=== PATIENT | female | born 1990 | race Caucasian/White ===

== ENCOUNTER 2019-07-19 10:21 | Emergency (ER) | payer OTHER, SELFPAY ==
[2019-07-19 10:25] VITALS: BP 136/97; PULSE 82; RESP 18; TEMP 36.5; O2SAT 100; BMI 20.9
--- NOTE | 2019-07-19 10:41 | ED.FEVER ---
HPI - Fever General Chief Complaint: Fever Stated Complaint: fell in shower th night blacked out head issues Time Seen by Provider: 07/19/19 10:41 Source: patient and family Mode of arrival: Ambulatory Limitations: no limitations History of Present Illness HPI Narrative: This is a 29-year-old female who comes to the emergency department with complaint of feeling unwell. Patient states she felt warm but did not have any documented fevers. On she took a shower and when she was in the shower she blacked out. She states she had a mild headache and a little bit of bruising of her left cheek. She has continued to feel unwell and felt lightheaded but has not had any further syncope. She denies any numbness, tingling or other neurologic symptoms. She states she has continued to have a mild headache particularly where she had her head. Patient states she has been nauseated but not had any vomiting. She has had quite a bit of nasal congestion as well as crackling in her ears and ringing in her ears. Patient states that she has had a cough but it's nonproductive. She denies any chest pain today but states she had some mild pressure on before the episode in the shower. She has not had any shortness of breath. She has chronic abdominal pain secondary to endometriosis and states she has had continued pain a little bit on the right side and into her back. She has also noticed when she urinated it hurts on her right side but she has not had any frequency, dysuria or urgency. She denies any vaginal bleeding or discharge. She denies any rash or skin changes. She denies any neck or back pain. She is unaware of any sick contacts. 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 She denies any allergies but does not do well with oral contraceptives and only takes progesterone and is been told to avoid ibuprofen secondary to gastric ulcers. No tobacco, alcohol or illicit. 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 Related Data Home Medications Medication Instructions Recorded Confirmed clotrimazole BID #0 05/18/16 diphenhydramine HCl [Benadryl 1 tab PO BID #0 05/18/16 Allergy] hydrocortisone #0 05/18/16 Previous Rx's Medication Instructions Recorded cephalexin [Keflex] 500 mg PO Q12H #14 cap 05/18/16 prednisone 0 PO QDAY #7 tab 05/18/16 fluticasone propionate [Children's 1 spray NASAL DAILY PRN #18.2 ml 07/19/19 Flonase Allergy Rlf] Allergies Allergy/AdvReac Type Severity Reaction Status Date / Time No Known Drug Allergies Allergy Verified 07/19/19 11:41 Review of Systems Review of Systems ROS Unobtainable: All systems reviewed & are unremarkable except as noted in HPI and below Patient History Medical History (Updated 07/19/19 @ 12:35 by Crystal Del Rio DO) Endometriosis (Acute) Surgical History (Updated 07/19/19 @ 11:26 by Crystal Del Rio DO) H/O ureter repair (Acute) Social History Smoking Status: Never smoker Smoking Status: Never smoker alcohol intake frequency: other Substance Use Type: does not use Exam Narrative Exam Narrative: GEN: well nourished, well appearing female, alert and oriented x 3, patient appears to be in mild distress. HEENT: Atraumatic except for very faint ecchymosis that is greenish in color on the right cheek and infraorbital, pupils are equal round reactive to light, extraocular movements are intact, there show bilateral rhinorrhea, TMs are opaque with fluid but no signs of erythema. No bulge bilaterally. Throat is erythematous without any exudates, bilateral moderate tonsillar enlargement, no uvular deviation, mild bilateral anterior cervical lymphadenopathy. Negative Kernig's and Brudzinski's. HEART: Regular rate and rhythm without murmur, clicks, rubs. LUNGS:Lungs clear to auscultation, no wheezes, rales, crackles, chest moves symmetrically, no tachypnea or accessory muscle use. ABD:bowel sounds normal, soft, non-tender, no guarding, rebound, rigidity, no masses noted, no hepatosplenomegaly :No CVA tenderness MSCL: Non-tender, no muscle atrophy, muscles strength 5/5 upper and lower extremities, full range of motion, normal gait NEURO:CN 2-12 intact, sensation normal. Initial Vital Signs Initial Vital Signs: Vital Signs Temperature 97.7 F 07/19/19 10:25 Pulse Rate 82 07/19/19 10:25 Respiratory Rate 18 07/19/19 10:25 Blood Pressure 136/97 H 07/19/19 10:25 Pulse Oximetry 100 07/19/19 10:25 Scores GCS [place] coma scale eye opening: Spontaneous Nathan coma scale verbal response: Orientated Nathan coma scale motor response: Obey commands Nathan coma scale total score: 15 Course Orders Ordered: ED Orders 07/19/19 10:30 Influenza A & B (PCR) Stat 07/19/19 10:41 EKG-12 Lead Routine 07/19/19 11:21 XR chest 1V Stat 07/19/19 11:30 Complete Blood Count AUTO DIFF Stat Comprehensive Metabolic Panel Stat Troponin & CK Cardiac Panel Stat Discontinued Medications Acetaminophen (Tylenol) 650 mg PO NOW ONE Stop: 07/19/19 11:22 Last Admin: 07/19/19 11:33 Dose: 650 mg Documented by: ANGELITO Sodium Chloride (Normal Saline 0.9%) 1,000 mls @ 1,000 mls/hr IV BOLUS ONE Stop: 07/19/19 12:19 Last Infusion: 07/19/19 12:46 Dose: 0 mls/hr Documented by: Admin: 07/19/19 11:33 Dose: 1,000 mls/hr Documented by: ANGELITO Ondansetron HCl (Zofran) 4 mg IV NOW ONE Stop: 07/19/19 11:22 Last Admin: 07/19/19 11:33 Dose: 4 mg Documented by: ANGELITO Vital Signs Vital signs: Vital Signs - 8 hr 07/19/19 10:25 Temperature 97.7 F Pulse Rate 82 Respiratory Rate 18 Blood Pressure 136/97 H Pulse Oximetry 100 MDM - Fever Lab Data Attestation: I reviewed the patient's lab results. Result diagrams: 07/19/19 11:30 07/19/19 11:30 Labs: Lab Results 07/19/19 07/19/19 07/19/19 Range/Units 10:30 11:30 11:30 WBC 4.1 L (4.5-11.0) X10^3/uL RBC 4.72 (4.0-5.2) X10^6/uL Hgb 12.4 (12.0-16.0) g/dL Hct 36.8 (36-46) % MCV 77.9 L (80-100) fL MCH 26.4 (26-34) PG MCHC 33.8 (30-36) % RDW 13.9 (11.6-14.8) % Plt Count 223 (150-400) X10^3/uL Neut % (Auto) 55.2 (50-75) % Lymph % (Auto) 29.5 (25-40) % [place] % (Auto) 13.0 (3-14) % Eos % (Auto) 1.8 L (2-4) % Baso % (Auto) 0.5 (0-2) % Neut # (Auto) 2300 (7235-6120) /uL Lymph # (Auto) 1200 (0128-2658) /uL [place] # (Auto) 500 (0-900) /uL Eos # (Auto) 100 (0-450) /uL Baso # (Auto) 0 (0-100) /uL Sodium 138 (137-145) mmol/L Potassium 4.2 (3.4-5.1) mmol/L Chloride 104 (98-107) mmol/L Carbon Dioxide 27 (22-32) mmol/L BUN 13 (7-17) mg/dL Creatinine 0.70 (0.52-1.04) mg/dL Estimated GFR > 60.0 (>60) mL/min BUN/Creatinine Ratio 18.6 (6-22) Glucose 86 (70-100) mg/dL Calcium 9.3 (8.4-10.2) mg/dL Total Bilirubin 0.2 (0.2-1.3) mg/dL AST 26 (14-36) IU/L ALT 11 (<35) IU/L Alkaline Phosphatase 74 (38-126) U/L Total Creatine Kinase 37 (30-135) U/L CK-MB (CK-2) TNP CK-MB (CK-2) Rel Index TNP Troponin I < 0.012 (0.01-0.034) ng/mL Total Protein 7.6 (6.3-8.2) g/dL Albumin 3.9 (3.5-5.0) g/dL Globulin 3.7 (1.7-4.1) g/dL Albumin/Globulin Ratio 1.1 (1.0-2.8) Influenza A (RT-PCR) Flu a negative (NEGATIVE) Influenza B (RT-PCR) Flu b negative (NEGATIVE) Point of Care Testing Test Results Negative Rapid Strep A Negative Urine Dip Bedside Urine Glucose Negative Bedside Urine Bilirubin - Negative Bedside Urine Ketone - Negative Urine Specific [place] 1.015 Bedside Urine Occult Blood - Negative Bedside Urine pH 6.0 Bedside Urine Protein - Negative Bedside Urine Urobilinogen - Negative Bedside Urine Nitrite - Negative Bedside Urine Leukocytes - Negative Esterase Imaging Data Chest x-ray: Attestation: I personally reviewed and interpreted this imaging study as follows: My Impression: nap ECG Data Attestation: I personally reviewed and interpreted this ECG as follows: Interpretation: Sinus rhythm rate of 77 CA 142 QRS [address] No [address] elevation or depression. MDM Narrative Medical decision making narrative: Patient had episode of syncope on , none since but has felt congested with multiple upper respiratory symptoms. Patient does have low wbc with no other major lab abnormalities. CXR is negative. EKG is negative. Patient has had some sore throat but rapid strep is negative. influenza negative. She has small bruise on left cheek but no other symptoms. Discussed that symptoms can be related to URI symptoms although possible to have post-concussive symptoms as well. Patient is ambulating in the ED without much issue. Discharge Plan Departure Patient Disposition: Home Clinical Impression: URI (upper respiratory infection), Syncope Discharge Date/Time: 07/19/19 12:56 Activity Restrictions/Additional Instructions: Follow up with your primary care in the next 2-3 days for recheck. Continue with oral hydration. I would recommend continuing with a decongestant such as claritin daily. Also recommend that you use flonase 1 spray to each nostril once daily. Return to emergency department for persistent fevers, recurrent passing out, lightheadedness, new chest pain or pressure, persistent vomiting, black or bloody stools, new shortness of breath, swelling in your extremities or other new or concerning symptoms. Prescriptions: New fluticasone propionate [Children's Flonase Allergy Rlf] 50 mcg/actuation spray,suspension 1 spray NASAL DAILY PRN (Reason: nasal congestion) Qty: 18.2 RF: 0 No Action diphenhydramine HCl [Benadryl Allergy] 25 MG tablet 1 tab PO BID Qty: 0 RF: 0 clotrimazole 1 % cream BID Qty: 0 RF: 0 hydrocortisone 0.5 % ointment Qty: 0 RF: 0 prednisone 20 MG tablet 0 PO QDAY Qty: 7 RF: 0 cephalexin [Keflex] 500 MG capsule 500 mg PO Q12H Qty: 14 RF: 0
[2019-07-19 11:11] LABS: Influenza A - CEPHEID Flu A NEGATIVE (NEGATIVE); Influenza B - CEPHEID Flu B NEGATIVE (NEGATIVE)
--- NOTE | 2019-07-19 11:21 | DI.RAD.S_ITS ---
PROCEDURE: XR CHEST 1V INDICATIONS: syncope, chest pain 2 days ago, fevers TECHNIQUE: One view of the chest was acquired. COMPARISON: None. FINDINGS: Surgical changes and devices: None. Lungs and pleura: Lungs are clear. No pleural effusions or pneumothorax. Mediastinum: Mediastinal contours appear normal. Heart size is normal. Bones and chest wall: No suspicious bony lesions. Overlying soft tissues appear unremarkable. IMPRESSION: Portable chest within normal limits. Dictated by: hSashi Yang M.D. on 07/19/2019 at 11:38 Approved by: Shashi Yang M.D. on 07/19/2019 at 11:38
[2019-07-19] MEDS: ONDANSETRON 4 MG/2 ML INJ IV (11:33)
[2019-07-19] MEDS: SODIUM CHLORIDE 0.9% 1,000 ML 1000 ML IV (11:33)
[2019-07-19] MEDS: ACETAMINOPHEN 325 MG TABLET 650 MG PO (11:33)
[2019-07-19 11:39] LABS: Add Manual Diff / Slide Review NO; Basophils Absolute Auto 0 /uL (0-100); Basophils Percent Auto 0.5 % (0-2); Eosinophils Absolute Auto 100 /uL (0-450); Eosinophils Percent Auto 1.8 % (2-4); Hematocrit 36.8 % (36-46); Hemoglobin 12.4 g/dL (12.0-16.0); Lymphocytes Absolute Auto 1200 /uL (1100-4500); Lymphocytes Percent Auto 29.5 % (25-40); Mean Corpuscular HGB Conc 33.8 % (30-36); Mean Corpuscular Hemoglobin 26.4 PG (26-34); Mean Corpuscular Volume 77.9 fL (80-100); Monocytes Absolute Auto 500 /uL (0-900); Neutrophils Absolute Auto 2300 /uL (1500-7000); Neutrophils Percent Auto 55.2 % (50-75); Platelet Count 223 X10^3/uL (150-400); Red Blood Cell Count 4.72 X10^6/uL (4.0-5.2); Red Cell Distribution Width 13.9 % (11.6-14.8); White Blood Cell Count 4.1 X10^3/uL (4.5-11.0)
[2019-07-19 11:45] LABS: Alanine Aminotransferase 11 IU/L (<35); Albumin 3.9 g/dL (3.5-5.0); Albumin Globulin Ratio 1.1 (1.0-2.8); Alkaline Phosphatase 74 U/L (38-126); Aspartate Aminotransferase 26 IU/L (14-36); BUN Creatinine Ratio 18.6 (6-22); Bilirubin Total 0.2 mg/dL (0.2-1.3); Blood Urea Nitrogen 13 mg/dL (7-17); Calcium 9.3 mg/dL (8.4-10.2); Carbon Dioxide 27 mmol/L (22-32); Chloride 104 mmol/L (98-107); Creatine Kinase 37 U/L (30-135); Estimated Glomerular Filt Rate > 60.0 mL/min (>60); Globulin 3.7 g/dL (1.7-4.1); Glucose 86 mg/dL (70-100); HEMOLYSIS < 15 (0-50); Potassium 4.2 mmol/L (3.4-5.1); Sodium 138 mmol/L (137-145); Total Protein 7.6 g/dL (6.3-8.2)
[2019-07-19 11:56] LABS: Troponin I < 0.012 ng/mL (0.01-0.034)
== END 2019-07-19 12:56 | disposition home or self-care (01) ==
PROVIDERS: Emergency Provider Emergency Medicine
DX: J06.9 Acute upper respiratory infection, unspecified (principal); R55 Syncope and collapse; Z98.890 Other specified postprocedural states; N80.9 Endometriosis, unspecified
CPT/HCPCS: 36415; 71045; 80053; 81003; 81025; 82550; 84484; 85025; 87502; 87880; 93005; 93010; 96361; 96374; 99284; 99285; J2405

== ENCOUNTER 2019-07-26 20:19 | Emergency (ER) | payer OTHER, MEDICAID, SELFPAY ==
[2019-07-26 20:24] VITALS: BP 126/84; PULSE 75; RESP 20; TEMP 36.9; O2SAT 99
--- NOTE | 2019-07-26 20:46 | ED_ITS ---
HPI - Neuro Symptoms/Deficit General Chief Complaint: Neuro Symptoms/Deficit Stated Complaint: recent concussion, feels worse Time Seen by Provider: 07/26/19 20:28 Source: patient Mode of arrival: Ambulatory Limitations: no limitations History of Present Illness HPI Narrative: 29-year-old female who approximately 10 days ago had what was reported as a syncopal event while in the shower. Did not sound like this was seizure. Was seen in the emergency department afterwards and was determined that it was vasovagal. 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 She states that since she past out she has had headaches, balance issues, no vision problems. Nausea. Also complaining of neck pain. On Anticoagulants: No Related Data Home Medications Medication Instructions Recorded Confirmed clotrimazole BID #0 05/18/16 diphenhydramine HCl [Benadryl 1 tab PO BID #0 05/18/16 Allergy] hydrocortisone #0 05/18/16 Previous Rx's Medication Instructions Recorded cephalexin [Keflex] 500 mg PO Q12H #14 cap 05/18/16 prednisone 0 PO QDAY #7 tab 05/18/16 fluticasone propionate [Children's 1 spray NASAL DAILY PRN #18.2 ml 07/19/19 Flonase Allergy Rlf] Allergies Allergy/AdvReac Type Severity Reaction Status Date / Time No Known Drug Allergies Allergy Verified 07/19/19 11:41 Review of Systems Constitutional Constitutional: Denies fatigue, Reports headache(s) and Reports weakness Eyes Eyes: Denies change in vision ENT Ears, Nose, Mouth, and Throat: Reports dizziness, Reports headache(s) and Reports disequilibrium Cardiovascular Cardiovascular: Denies chest pain, Denies syncope, Denies palpitations and Denies dyspnea Respiratory Respiratory: Denies dyspnea Gastrointestinal Gastrointestinal: Denies abdominal pain, Denies change in stool character, Reports nausea and Denies vomiting Genitourinary Genitourinary: Denies dysuria and Denies vaginal discharge Musculoskeletal Musculoskeletal: Denies myalgias, Denies arthralgias, Reports muscle weakness and Denies tingling Integumentary/Breasts Skin/Breast: Denies rash Neurologic Neurologic: Reports behavioral changes, Reports confusion, Reports dizziness, Denies syncope, Reports headache(s), Reports lack of coordination, Denies focal weakness, Reports memory loss, Denies convulsions, Denies seizure-like activity, Denies sensory deficit, Denies tingling, Reports disequilibrium and Reports weakness Psychiatric Psychiatric: Reports behavioral changes, Reports confusion, Reports difficulty concentrating and Reports memory loss Endocrine Endocrine: Denies fatigue and Denies palpitations Patient History Medical History Endometriosis (Acute) Surgical History (Updated 07/19/19 @ 11:26 by Crystal Del Rio DO) H/O ureter repair (Acute) Social History Smoking Status: Never smoker Smoking Status: Never smoker alcohol intake frequency: other Substance Use Type: does not use Exam Initial Vital Signs Initial Vital Signs: Vital Signs Temperature 98.4 F 07/26/19 20:24 Pulse Rate 75 07/26/19 20:24 Respiratory Rate 20 07/26/19 20:24 Blood Pressure 126/84 07/26/19 20:24 Pulse Oximetry 99 07/26/19 20:24 Const General: cooperative, healthy appearing, comfortable, well developed, well anselmo omed and No acute distress Limitations: mental status not altered HENMT Head: normal to inspection and normocephalic Face and sinus: normal facial exam Eyes Pupils: PERRL EOM: EOM intact bilaterally Resp Effort & Inspection: normal respiratory effort Auscultation: clear to auscultation bilaterally Cardio Rate: regular rate Rhythm: regular rhythm Pulses: radial pulses present GI Inspection: non-distended Palpation: soft, No firm and No tender Back/Spine/Pelvis Cervical Spine: cervical spinal tenderness and No step off deformity Thoracic/Lumbar Spine: No thoracic spinal tenderness and No lumbar spinal tenderness Skin Lesions: no lesions Rashes: no rashes Neuro General: alert, awake and oriented x3 Cranial Nerves: CN's II-XI intact bilaterally Cognition: normal cognition Speech: speech normal Gait: shuffling and wide-based Motor: strength 5/5 throughout and no pronator drift Sensory Exam: no sensory deficits noted Coordination: [id number] test normal Extrem General: normal to inspection and capillary refill normal Psych Appearance: grossly normal and well kempt Scores GCS Nathan coma scale eye opening: Spontaneous [place] coma scale verbal response: Orientated Nathan coma scale motor response: Obey commands Nathan coma scale total score: 15 Course Orders Ordered: ED Orders 07/26/19 20:47 CT cervical spine wo con Stat CT head/brain wo con Stat 07/26/19 21:09 Basic Metabolic Panel Stat Complete Blood Count AUTO DIFF Stat Test Serum,Qual Stat Vital Signs Vital signs: Vital Signs - 8 hr 07/26/19 20:24 07/26/19 22:26 Temperature 98.4 F 99.6 F Pulse Rate 75 68 Respiratory Rate 20 14 Blood Pressure 126/84 112/67 Pulse Oximetry 99 97 MDM - Neuro Symptoms/Deficit Medical Records Attestation: I reviewed the patient's medical records. Lab Data Attestation: I reviewed the patient's lab results. Result diagrams: 07/26/19 21:09 07/26/19 21:09 Labs: Lab Results 07/26/19 07/26/19 07/26/19 Range/Units 21:09 21:09 21:09 WBC 6.7 (4.5-11.0) X10^3/uL RBC 4.77 (4.0-5.2) X10^6/uL Hgb 12.6 (12.0-16.0) g/dL Hct 37.2 (36-46) % MCV 78.0 L (80-100) fL MCH 26.4 (26-34) PG MCHC 33.9 (30-36) % RDW 13.8 (11.6-14.8) % Plt Count 285 (150-400) X10^3/uL Neut % (Auto) 48.8 L (50-75) % Lymph % (Auto) 43.9 H (25-40) % [place] % (Auto) 6.0 (3-14) % Eos % (Auto) 0.9 L (2-4) % Baso % (Auto) 0.4 (0-2) % Neut # (Auto) 3300 (9984-3674) /uL Lymph # (Auto) 2900 (6663-3307) /uL [place] # (Auto) 400 (0-900) /uL Eos # (Auto) 100 (0-450) /uL Baso # (Auto) 0 (0-100) /uL Sodium 138 (137-145) mmol/L Potassium 4.6 (3.4-5.1) mmol/L Chloride 101 (98-107) mmol/L Carbon Dioxide 27 (22-32) mmol/L BUN 14 (7-17) mg/dL Creatinine 1.20 H (0.52-1.04) mg/dL Estimated GFR 53.5 L (>60) mL/min BUN/Creatinine Ratio 11.7 (6-22) Glucose 101 H (70-100) mg/dL Calcium 9.6 (8.4-10.2) mg/dL Serum , Qual Negative (Negative) Imaging Data CT - cervical spine: Radiologist's Impression: [address] [address] [address] Scan Report Signed Patient: Tyrese MartínezR#: [id number] : 1990Acct:[id number] Age/Sex: 29 / FDate of Service: 07/26/19 Loc: ED Accession Number: [id number] Procedure: CT cervical spine wo con Ordering Provider: Liang Nath D.O. PROCEDURE: CT CERVICAL SPINE WO CON INDICATIONS: Fall several days ago with neck pain TECHNIQUE: Noncontrast 3 mm thick sections acquired from the skull base to the T4 level. Sagittal and coronal reformats were then constructed. For radiation dose reduction, the following was used: automated exposure control, adjustment of mA and/or kV according to patient size. COMPARISON: None. FINDINGS: Image quality: Excellent. Bones: No fractures or dislocations. Visualized superior ribs are intact. Soft tissues: Prevertebral soft tissues are normal in thickness. No paravertebral hematomas. No apical pneumothoraces. IMPRESSION: No acute cervical spine injury. Dictated by: Tasha Story M.D. on 07/26/2019 at 21:07 Approved by: Tasha Story M.D. on 07/26/2019 at 21:09 CT scan - head: Radiologist's Impression: [address] [address] [address] Scan Report Addendum Patient: Maribeth Martínez#: [id number] : 1990Acct:[id number] Age/Sex: 29 / FDate of Service: 07/26/19 Loc: ED Accession Number: [id number] Procedure: CT head/brain wo con Ordering Provider: Liang Nath D.O. ADDENDUM This report includes an Addendum and supersedes previous reports for this exam. PROCEDURE: CT HEAD/BRAIN WO CON INDICATIONS: Fall several days ago with upper extremity weakness TECHNIQUE: Noncontrast 4.5 mm thick angled axial sections acquired from the foramen magnum to the vertex, with coronal and sagittal reformats. For radiation dose reduction, the following was used: automated exposure control, adjustment of mA and/or kV according to patient size. COMPARISON: None. FINDINGS: Image quality: Excellent. CSF spaces: Basal cisterns are patent. No extra-axial fluid collections. Ventricles are normal in size and shape. Brain: No midline shift. No intracranial masses or hemorrhage. Kolb-white matter interface is normal. Skull and face: Calvarium and visualized facial bones are intact, without suspicious lesions. Sinuses: Visualized sinuses and mastoids are clear. IMPRESSION: No acute cardiopulmonary findings. Dictated by: Tasha Story M.D. on 07/26/2019 at 21:05 Approved by: Tasha Story M.D. on 07/26/2019 at 21:07 ADDENDUM: Please note, the impression should read: No acute INTRACRANIAL findings. Dictated by: Tasha Story M.D. on 07/26/2019 at 21:47 Approved by: Tasha Story M.D. on 07/26/2019 at 21:47 Addendum Dictated By:Tasha Story MD Addendum Signed By: Addendum Cosigned By: DD/ TD/TT: 07/26/19 PROCEDURE: CT HEAD/BRAIN WO CON INDICATIONS: Fall several days ago with upper extremity weakness TECHNIQUE: Noncontrast 4.5 mm thick angled axial sections acquired from the foramen magnum to the vertex, with coronal and sagittal reformats. For radiation dose reduction, the following was used: automated exposure control, adjustment of mA and/or kV according to patient size. COMPARISON: None. FINDINGS: Image quality: Excellent. CSF spaces: Basal cisterns are patent. No extra-axial fluid collections. Ventricles are normal in size and shape. Brain: No midline shift. No intracranial masses or hemorrhage. Kolb-white matter interface is normal. Skull and face: Calvarium and visualized facial bones are intact, without suspicious lesions. Sinuses: Visualized sinuses and mastoids are clear. IMPRESSION: No acute cardiopulmonary findings. Dictated by: Tasha Story M.D. on 07/26/2019 at 21:05 Approved by: Tasha Story M.D. on 07/26/2019 at 21:07 [facility] Narrative Medical decision making narrative: Head CT is negative. Cervical spine CT is negative. Labs unremarkable. Patient is not anemic. Patient does have equal strength bilateral upper and lower extremities. When patient stands she does seem to be unsteady. Wants to fall backwards but is able to catch herself. Otherwise has a nonfocal neurologic exam. She is 10 days out from her event. I have low suspicion that this was a stroke. Low suspicion this was a seizure. I did inform her that it is unlikely that she passed out because of the low iron. Her symptoms are consistent with a post concussive syndrome. We did discuss this in detail and at length. Who we can hold on further workup for now. We discussed return precautions and follow-up instructions. She expressed understanding agreement plan. Discharge Plan Departure Patient Disposition: Home Clinical Impression: Post concussion syndrome Discharge Date/Time: 07/26/19 22:27 Instructions: DI for Postconcussion Syndrome Activity Restrictions/Additional Instructions: Recommend that you talk with her primary provider about a referral to see a concussion specialist. I also recommend further workup of your syncopal episode with consideration of potential Holter monitor and tilt-table test. Return to the emergency department for any new or worsening symptoms. Prescriptions: No Action diphenhydramine HCl [Benadryl Allergy] 25 MG tablet 1 tab PO BID Qty: 0 RF: 0 clotrimazole 1 % cream BID Qty: 0 RF: 0 hydrocortisone 0.5 % ointment Qty: 0 RF: 0 prednisone 20 MG tablet 0 PO QDAY Qty: 7 RF: 0 cephalexin [Keflex] 500 MG capsule 500 mg PO Q12H Qty: 14 RF: 0 fluticasone propionate [Children's Flonase Allergy Rlf] 50 mcg/actuation spray,suspension 1 spray NASAL DAILY PRN (Reason: nasal congestion) Qty: 18.2 RF: 0
--- NOTE | 2019-07-26 21:09 | PC.NURSE ---
provider ok'd lab draw and no IV.
--- NOTE | 2019-07-26 21:09 | PC.NURSE ---
Patient removed own c collar, precautions were stated to patient and patient prefers to not have a collar on. Provider aware.
[2019-07-26 21:20] LABS: Add Manual Diff / Slide Review NO; Basophils Absolute Auto 0 /uL (0-100); Basophils Percent Auto 0.4 % (0-2); Eosinophils Absolute Auto 100 /uL (0-450); Eosinophils Percent Auto 0.9 % (2-4); Hematocrit 37.2 % (36-46); Hemoglobin 12.6 g/dL (12.0-16.0); Lymphocytes Absolute Auto 2900 /uL (1100-4500); Lymphocytes Percent Auto 43.9 % (25-40); Mean Corpuscular HGB Conc 33.9 % (30-36); Mean Corpuscular Hemoglobin 26.4 PG (26-34); Monocytes Absolute Auto 400 /uL (0-900); Neutrophils Absolute Auto 3300 /uL (1500-7000); Neutrophils Percent Auto 48.8 % (50-75); Platelet Count 285 X10^3/uL (150-400); Red Blood Cell Count 4.77 X10^6/uL (4.0-5.2); Red Cell Distribution Width 13.8 % (11.6-14.8); White Blood Cell Count 6.7 X10^3/uL (4.5-11.0)
[2019-07-26 21:29] LABS: BUN Creatinine Ratio 11.7 (6-22); Blood Urea Nitrogen 14 mg/dL (7-17); Calcium 9.6 mg/dL (8.4-10.2); Carbon Dioxide 27 mmol/L (22-32); Chloride 101 mmol/L (98-107); Estimated Glomerular Filt Rate 53.5 mL/min (>60); Glucose 101 mg/dL (70-100); HEMOLYSIS < 15 (0-50); Potassium 4.6 mmol/L (3.4-5.1); Sodium 138 mmol/L (137-145)
--- NOTE | 2019-07-26 21:31 | PC.NURSE ---
patient reports balance and memory problems after dx of concussion four days ago in this ED. Ambulated self into ed with family, slow and steady gate.
[2019-07-26 21:37] LABS: Pregnancy Test Serum,Qual Negative (Negative)
[2019-07-26 22:26] VITALS: BP 112/67; PULSE 68; RESP 14; TEMP 37.6; O2SAT 97
== END 2019-07-26 22:27 | disposition home or self-care (01) ==
PROVIDERS: Emergency Provider Emergency Medicine
DX: F07.81 Postconcussional syndrome (principal); M54.2 Cervicalgia; W19.XXXA Unspecified fall, initial encounter
CPT/HCPCS: 36415; 70450; 72125; 80048; 84703; 85025; 99282; 99284

== ENCOUNTER 2020-03-11 13:30 | Outpatient (RCR) | payer OTHER, MEDICAID, SELFPAY ==
--- NOTE | 2020-02-04 17:56 | OT.OP.EVAL ---
Visit Care Team Role Provider Type Christen Figueroa PA-C Primary Care Provider Non-Staff Specialty: Family Practice Address: [address] [place] [address], [address], [place], [address] Email: Doctor Amanda MD Other Providers Non-Staff Specialty: Medical Address: Phone: Fax: Email: Attending Provider Referring Provider Specialty: Address: Phone: Fax: Email: Occupational Therapy Initial Evaluation OT Outpatient Adult Evaluation Start: 02/04/20 17:26 Freq: Status: Active Protocol: Document 02/04/20 17:26 AMS (Rec: 02/04/20 17:56 AMS [id number]) General Information Visit Start Time 13:45 Visit Stop Time 15:15 Total Visit Minutes 30 Plan of Care Dates 02/04/20-04/28/20 Insurance Information [email or web address]; 12 visits authorized Treatment Setting Outpatient Care Note Type Initial Evaluation Goals Objective Measurements Results of Strength Testing: Avg 44.3 pounds of force w/ R construction framer; Avg 30.3 pounds of force w/ L construction framer. Avg 11.0 pounds of force w/ R Lateral Pinch; Avg 9.3 pounds of force w/ L Lateral Pinch. MMT R wrist flex 4+/5; L wrist flex 4/5 R wrist ext 3+/5; L wrist ext 3+/[address] 4/5; L wrist RD 3+/ 5 R wrist UD 3+/5; L wrist UD 3+ /5 Short Term Goals 1. MMT 4/5 bilateral wrist extension. 2. MMT 4/5 bilateral wrist UD . 3. MMT 5/5 bilateral wrist flexion. 4. MMT 5/[address] Economic Development Manager Goals 1. Diba will be modified independent with execution of distal UE strengthening home exercise program utilizing provided written and visual instructions from therapist. 2. Assessment/Plan Treatment Assessment Please note that therapist was only able to complete initial evaluation secondary to Angelina arriving late to scheduled appointment. Angelina is a 29 year-old right hand dominant female with complicated medical presentation. She has h/o BCP for 13 years in setting of endometriosis; she had a fall in the shower in July of 2019 in which she hit her head and loss consciousness. 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 Angelina had to stop pursuing a masters in speech d /t recent medical events. She c/o fatigue, weakness, muscle 'spasms' of hands, primary left upper extremity numbness w/ laying down (either side and not dependent of positioning of elbow), visual and auditory sensitivities, difficulties w/ word finding, short term memory deficits, as well as difficulties w/ multitasking (which she previously struggled with, however, she was able to manage). Angelina demonstrated no difficulties w/ finger opposition w/ EO or EC; no errors noted. She was also able to imitate hand gestures simultaneously bilaterally w/ no errors. Angelina was accurate w / meeting hands at midline in front of body and above head; no midline shift was observed. She reports ability to use computer for up to 1 hour and then encounters fatigue and onset of headache if concentration is needed for tasks being completed; she denies errors with typing. She has been educated on changing settings/equipment for managing glare/settings of computer. Angelina reports she is able to manipulate phone without difficulties; she reports fatigue/and encountering heaviness of cell phone as limiting factor. Angelina reports restricted daily routine d/t fatigue; on a good day she is able to bathe, clean her room, and get up and move around multiple times. On a not so good day, Angelina struggles with bathing, cleaning her room and moving despite use of shower stool. Angelina denies motor planning difficulties with ADLS. Her mother is assisting her with meal preparation, management of bills/payments. Angelina is driving personal vehicle and reportedly was cleared by MD to do so. Angelina was noted to have distal UE weakness. Angelina reports also having to focus on instructions for motor imitation tasks. Based on evaluation, it is recommended that therapist pursues outpatient speech therapy referral for Angelina. In addition, outpatient OT is recommended to address distal UE strength/endurance, divided attention UE motor planning tasks, in order to support Angelina's return to successful engagement in meaningful activities. Comment 12 weeks Treatment Frequency Once a Week Therapeutic Contents Active Range of Motion, Adaptive Equipment Education, Client Education,Cognitive Skills Development,Functional Activities,Home Exercise Program,Education, Neurodevelopment Treatment, Neuromuscular Re-Education, Self-Care,Stretching/ Flexibility Activities, Therapeutic Activities, Therapeutic Exercises Suggested Referrals Speech Therapy
--- NOTE | 2020-02-12 16:26 | OT.OP.TRT ---
Visit Care Team Role Provider Type Christen Figueroa PA-C Primary Care Provider Non-Staff Specialty: Family Practice Address: [address] [place] [address], [address], [place], [address] Email: Doctor Amanda MD Other Providers Non-Staff Specialty: Medical Address: Phone: Fax: Email: Attending Provider Referring Provider Specialty: Address: Phone: Fax: Email: Occupational Therapy Treatment Note OT Outpatient Treatment Note - Adult Start: 02/04/20 17:26 Freq: Status: Active Protocol: Document 02/12/20 16:10 AMS (Rec: 02/12/20 16:25 AMS [id number]) OT Outpatient Adult Treatment Note Session Time Visit Start Time 13:30 Visit Stop Time 14:15 Total Visit Minutes 45 Visit Information Plan of Care Dates 02/04/20-04/28/20 Setting Treatment Setting Outpatient Care Visit Type Note Type Treatment Note General Information General Information Angelina is a 29 year-old right hand dominant female with complicated medical presentation. She has h/o BCP for 13 years in setting of endometriosis; she had a fall in the shower in July of 2019 in which she hit her head and loss consciousness. 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 Angelina had to stop pursuing a masters in speech d /t recent medical events. She c/o fatigue, weakness, muscle 'spasms' of hands, primary left upper extremity numbness w/ laying down (either side and not dependent of positioning of elbow), visual and auditory sensitivities, difficulties w/ word finding, short term memory deficits, as well as difficulties w/ multitasking (which she previously struggled with, however, she was able to manage). - Subjective Identification Type Name Identification Reconciled With Medical Record Observations Initial b/p 107/79. Heart rate 81 bpm. b/p 105/76 post supine exercises. Eye fatigue reported post boom dewick. Difficulty reported w/ holding up head. - Objective Objective Measurements h/o motion sickness which has increased since injury. motion sickness encountered w/ biking. Fatigue of L LE with cycling reported and report of awareness of left grasp weakening as bike ride progressed. Boom Dewick Test 1 = 15.9 sec no errors. Test 2 = 19.6 sec no errors. Test 3 = 21.5 sec no errors. However, report of eye fatigue at conclusion of tests. Impaired eye-teaming noted w/ convergence. Headache 4/10 post supine UE exercises. Short Term Goals 1. MMT 4/5 bilateral wrist extension. 2. MMT 4/5 bilateral wrist UD . 3. MMT 5/5 bilateral wrist flexion. 4. MMT 5/[address] Etiquette Teacher Goals 1. Diba will be modified independent with execution of distal UE strengthening home exercise program utilizing provided written and visual instructions from therapist. - Treatment 1 Descriptor Boom Jaguar Visual Scanning. Exercises 2 Descriptor 3.3# spherical ball weighted pass. 1 x 10. 1 Descriptor UE exercises. Supine. Sh flexion towel. 2 x 10. Supine. Chest press. 2 x 10. Supine. Hor sh abd/add. 2 x 10 . Supine. Wrist curls at sh flex . 1 set of 10 sec w/ hold of 3 to 4 sec per rep. - Assessment Assessment of Improvement Presented with increased fatigue on this treatment date . Encouraged to create a daily log or diary of daily patterns/activities to provide insight to medical team/ therapist team. Will need to closely monitor symptoms given decreased ability to identify specific triggers based on self-report; will need to monitor eye fatigue/strain/ overall fatigue/blood pressure throughout treatment session. Recommend slowly introducing exercises/activities to support distal UE strengthening. Angelina was able to complete visual scanning activities without errors and very efficiently; however, did report eye fatigue post exercises with heaviness of ' head'. Impaired convergence. h /o eye drift. Reports ability to use computer however, for up to an hour without cognitive focus. Home Exercise Program Requested Angelina makes a daily log or (diary) of activities/ symptoms/sleep patterns/ headaches/exercises/etc. Recommended carrying over of towel based exercise with wrist turns 1 set of 10 reps while supine with positioning of UEs at sh height. Recommended focusing on action without visual fixation given symptoms provoked. Practiced in session and gave Diba written and visual instructions for carry-over. - Plan Therapy Recommendations Continue with Current Program, Advance per Rehabilitation Protocol Additional Therapy Recommendations Consult w/ other therapies.
--- NOTE | 2020-02-19 16:55 | OT.OP.TRT ---
Visit Care Team Role Provider Type Christen Figueroa PA-C Primary Care Provider Non-Staff Specialty: Family Practice Address: [address] [place] [address], [address], [place], [address] Email: Doctor Amanda MD Other Providers Non-Staff Specialty: Medical Address: Phone: Fax: Email: Attending Provider Referring Provider Specialty: Address: Phone: Fax: Email: Occupational Therapy Treatment Note OT Outpatient Treatment Note - Adult Start: 02/04/20 17:26 Freq: Status: Active Protocol: Document 02/19/20 16:36 AMS (Rec: 02/19/20 16:55 AMS [id number]) OT Outpatient Adult Treatment Note Session Time Visit Start Time 12:30 Visit Stop Time 13:15 Total Visit Minutes 45 Visit Information Plan of Care Dates 02/04/20-04/28/20 Setting Treatment Setting Outpatient Care Visit Type Note Type Treatment Note General Information General Information Angelina is a 29 year-old right hand dominant female with complicated medical presentation. She has h/o BCP for 13 years in setting of endometriosis; she had a fall in the shower in July of 2019 in which she hit her head and loss consciousness. 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 Angelina had to stop pursuing a masters in speech d /t recent medical events. She c/o fatigue, weakness, muscle 'spasms' of hands, primary left upper extremity numbness w/ laying down (either side and not dependent of positioning of elbow), visual and auditory sensitivities, difficulties w/ word finding, short term memory deficits, as well as difficulties w/ multitasking (which she previously struggled with, however, she was able to manage). Angelina was diagnosed with Ely, ely - Subjective Identification Type Name Identification Reconciled With Medical Record Observations Initial b/p 131/99. Focus on breath. b/p medication taken 30 min prior to appt. c/o neck tightness and headache of 4/ 10 on 0 to 10 scale. b/p was re-taken 104/85. seated TB strengthening. completed scapular retraction w/ elbow ext 108/82. Angelina requested rest. Rested supine in darkened room; b/p 118/92 when sitting up. 116/90. No additional exercises. - Objective Objective Measurements Please refer to below for progress towards meeting established OT goals. 02/12/20= Boom Dewick Test 1 = 15.9 sec no errors. Test 2 = 19.6 sec no errors. Test 3 = 21.5 sec no errors. However, report of eye fatigue at conclusion of tests. Impaired eye-teaming noted w/ convergence. Short Term Goals 1. MMT 4/5 bilateral wrist extension. 2. MMT 4/5 bilateral wrist UD . 3. MMT 5/5 bilateral wrist flexion. 4. MMT 5/[address] Senior Living Goals 1. Diba will be modified independent with execution of distal UE strengthening home exercise program utilizing provided written and visual instructions from therapist. - Exercises 4 Descriptor Standing sh ext/scapular retraction w/ wrist flexion. TB #1. 2 x 10. wrist extension. TB #1. 2 x 10 . 3 Descriptor TB distal wrist strengthening exercises. Modified TB wrist strengthening. Wrist RD. seated. TB #1. 2 x 10. Wrist UD. seated. TB #1. 2 x 10. 2 Descriptor 3.3# spherical ball weighted pass. 1 x 10. 1 Descriptor UE exercises. Supine. Sh flexion towel. 2 x 10. Supine. Chest press. 2 x 10. Supine. Hor sh abd/add. 2 x 10 . Supine. Wrist curls at sh flex . 1 set of 10 sec w/ hold of 3 to 4 sec per rep. - Assessment Assessment of Improvement Advanced distal UE home exercise program on this treatment date utilizing TB #1 . Closely monitored b/p with execution of exercises. See subjective section. c/o fatigue and headache 4 out of 10 on scale initially w/ b/p 131/99; tightness of neck. b/p medication was reportedly taken 30 minutes prior to treatment session. b/p was re- taken; did not initiate exercises until b/p 104/85 reading w/ monitoring of patient/nonverbal signs et cetera. Will need to monitor eye fatigue/strain/overall fatigue/blood pressure throughout treatment session. Recommend slowly introducing exercises/activities to support distal UE strengthening. Home Exercise Program Upgraded distal home exercise program. Provided Diba with TB #1. Modified exercises to support Diba's active participation; discussed execution of exercises seated/ supine as tolerated. Original placed in paper chart. All exercises were reviewed in treatment session; informed that therapist would be out of the clinic for the next couple of weeks. If needed, rec conferring w/ primary PT. - Plan Therapy Recommendations Continue with Current Program, Advance per Rehabilitation Protocol Additional Therapy Recommendations Consult w/ other therapies.
--- NOTE | 2020-03-11 15:30 | OT.OP.TRT ---
Visit Care Team Role Provider Type Referring Provider Specialty: Address: Phone: Fax: Email: Christen Figueroa PA-C Primary Care Provider Non-Staff Specialty: Family Practice Address: [address] [place] [address], [address], [place], [address] Email: Doctor Amanda MD Other Providers Non-Staff Specialty: Medical Address: Phone: Fax: Email: Radhames Bullock Attending Provider Non-Staff Specialty: Psychiatry Address: [address] [place] [address], [id number] Email: Occupational Therapy Treatment Note OT Outpatient Treatment Note - Adult Start: 02/04/20 17:26 Freq: Status: Active Protocol: Document 03/11/20 15:30 AMS (Rec: 03/23/20 09:27 AMS [id number]) OT Outpatient Adult Treatment Note Session Time Visit Start Time 13:30 Visit Stop Time 14:15 Total Visit Minutes 45 Visit Information Plan of Care Dates 02/04/20-04/28/20 Setting Treatment Setting Outpatient Care Visit Type Note Type Treatment Note General Information General Information Angelina is a 29 year-old right hand dominant female with complicated medical presentation. She has h/o BCP for 13 years in setting of endometriosis; she had a fall in the shower in July of 2019 in which she hit her head and loss consciousness. 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 Angelina had to stop pursuing a masters in speech d /t recent medical events. She c/o fatigue, weakness, muscle 'spasms' of hands, primary left upper extremity numbness w/ laying down (either side and not dependent of positioning of elbow), visual and auditory sensitivities, difficulties w/ word finding, short term memory deficits, as well as difficulties w/ multitasking (which she previously struggled with, however, she was able to manage). Angelina was diagnosed with Ely, ely - Subjective Identification Type Name Identification Reconciled With Medical Record Observations PT really helped. I had relief from the appointment all the way into the evening. Exercise and doing cognitive activities for 20 minutes or so tends to bring headaches on per Diba. My headaches will start at 3 to 4 and go up to 6 or 7 out of 10 per Diba. - Objective Objective Measurements Please refer to below for progress towards meeting established OT goals. 02/12/20= Boom Dewick Test 1 = 15.9 sec no errors. Test 2 = 19.6 sec no errors. Test 3 = 21.5 sec no errors. However, report of eye fatigue at conclusion of tests. Impaired eye-teaming noted w/ convergence. Short Term Goals GOALS PLACED ON HOLD OF 05/20 1. MMT 4/5 bilateral wrist extension. 2. MMT 4/5 bilateral wrist UD . 3. MMT 5/5 bilateral wrist flexion. 4. MMT 5/[address] Longterm Goals 1. Angelina will be modified independent with execution of distal UE strengthening home exercise program utilizing provided written and visual instructions from therapist. = mod I with current HEP - - Assessment Assessment of Improvement Angelina is currently mod I with her home exercise program. Today's treatment session focused on mod I with current HEP relative to distal UE strength, activity modification, and energy conservation w/ focus on Angelina' s ability to participate in meaningful activities. Angelina reported relief from PT relative to headaches; thus, this positive feedback was conveyed to her primary PT! Angelina denies questions relative to HEP and/or other areas. Given that Angelina currently is receiving outpatient speech/PT , exercise/cognitive exercises and activities can exacerbate headache symptoms, insurance limitations, and that she is not able to have further diagnostic testing until her symptoms are stable, it is recommended that Angelina be placed on hold from OT. Therapist to follow-up as appropriate/as needed. - Plan Additional Therapy Recommendations Place on hold from treatment.
--- NOTE | 2020-04-27 11:10 | OT.OP.DC ---
Visit Care Team Role Provider Type Referring Provider Address: Phone: Fax: Email: Christen Figueroa PA-C Primary Care Provider Non-Staff Address: [address], [address], [place], [address] Email: Doctor Amanda MD Other Providers Non-Staff Address: Phone: Fax: Email: Radhames Bullock Attending Provider Non-Staff Address: [address] [place] [address], [id number] Email: OT Outpatient OT Outpatient Adult Evaluation Start: 02/04/20 17:26 Freq: Status: Active Protocol: Document 02/04/20 17:26 AMS (Rec: 02/04/20 17:56 AMS [id number]) General Information Session Time Visit Start Time 13:45 Visit Stop Time 15:15 Total Visit Minutes 30 Visit Information Plan of Care Dates 02/04/20-04/28/20 Insurance Information [employer]; 12 visits authorized Setting Treatment Setting Outpatient Care Visit Type Note Type Initial Evaluation Goals Objective Measurements Objective Measurements Results of Strength Testing: Avg 44.3 pounds of force w/ R aircraft structure mechanic; Avg 30.3 pounds of force w/ L aircraft structure mechanic. Avg 11.0 pounds of force w/ R Lateral Pinch; Avg 9.3 pounds of force w/ L Lateral Pinch. MMT R wrist flex 4+/5; L wrist flex 4/5 R wrist ext 3+/5; L wrist ext 3+/[address] 4/5; L wrist RD 3+/ 5 R wrist UD 3+/5; L wrist UD 3+ /5 Short Term Goals Short Term Goals 1. MMT 4/5 bilateral wrist extension. 2. MMT 4/5 bilateral wrist UD . 3. MMT 5/5 bilateral wrist flexion. 4. MMT 5/[address] Cable Stretcher And Tester Goals Fpc Goals 1. Diba will be modified independent with execution of distal UE strengthening home exercise program utilizing provided written and visual instructions from therapist. 2. Assessment/Plan Assessment Treatment Assessment Please note that therapist was only able to complete initial evaluation secondary to Diba arriving late to scheduled appointment. Angelina is a 29 year-old right hand dominant female with complicated medical presentation. She has h/o BCP for 13 years in setting of endometriosis; she had a fall in the shower in July of 2019 in which she hit her head and loss consciousness. 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 Angelina had to stop pursuing a masters in speech d /t recent medical events. She c/o fatigue, weakness, muscle 'spasms' of hands, primary left upper extremity numbness w/ laying down (either side and not dependent of positioning of elbow), visual and auditory sensitivities, difficulties w/ word finding, short term memory deficits, as well as difficulties w/ multitasking (which she previously struggled with, however, she was able to manage). Angelina demonstrated no difficulties w/ finger opposition w/ EO or EC; no errors noted. She was also able to imitate hand gestures simultaneously bilaterally w/ no errors. Angelina was accurate w / meeting hands at midline in front of body and above head; no midline shift was observed. She reports ability to use computer for up to 1 hour and then encounters fatigue and onset of headache if concentration is needed for tasks being completed; she denies errors with typing. She has been educated on changing settings/equipment for managing glare/settings of computer. Angelina reports she is able to manipulate phone without difficulties; she reports fatigue/and encountering heaviness of cell phone as limiting factor. Angelina reports restricted daily routine d/t fatigue; on a good day she is able to bathe, clean her room, and get up and move around multiple times. On a not so good day, Angelina struggles with bathing, cleaning her room and moving despite use of shower stool. Angelina denies motor planning difficulties with ADLS. Her mother is assisting her with meal preparation, management of bills/payments. Angelina is driving personal vehicle and reportedly was cleared by MD to do so. Angelina was noted to have distal UE weakness. Angelina reports also having to focus on instructions for motor imitation tasks. Based on evaluation, it is recommended that therapist pursues outpatient speech therapy referral for Angelina. In addition, outpatient OT is recommended to address distal UE strength/endurance, divided attention UE motor planning tasks, in order to support Angelina's return to successful engagement in meaningful activities. Plan Comment 12 weeks Treatment Frequency Once a Week Therapeutic Contents Active Range of Motion, Adaptive Equipment Education, Client Education,Cognitive Skills Development,Functional Activities,Home Exercise Program,Education, Neurodevelopment Treatment, Neuromuscular Re-Education, Self-Care,Stretching/ Flexibility Activities, Therapeutic Activities, Therapeutic Exercises Suggested Referrals Speech Therapy Sensory Assessment Sensory Profile2 Functional Wrist/Hand Scan Hand Side OT Outpatient Treatment Note - Adult Start: 02/04/20 17:26 Freq: Status: Active Protocol: Document 04/27/20 11:06 AMS (Rec: 04/27/20 11:09 AMS [id number]) OT Outpatient Adult Treatment Note Visit Information Plan of Care Dates 02/04/20-04/28/20 Setting Treatment Setting Outpatient Care Visit Type Note Type Discharge Summary General Information General Information Angelina is a 30 year-old right hand dominant female with complicated medical presentation. She has h/o BCP for 13 years in setting of endometriosis; she had a fall in the shower in July of 2019 in which she hit her head and loss consciousness. 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 Angelina had to stop pursuing a masters in speech d /t recent medical events. She c/o fatigue, weakness, muscle 'spasms' of hands, primary left upper extremity numbness w/ laying down (either side and not dependent of positioning of elbow), visual and auditory sensitivities, difficulties w/ word finding, short term memory deficits, as well as difficulties w/ multitasking (which she previously struggled with, however, she was able to manage). Angelina was diagnosed with solis Jarrett - Subjective Identification Type Name Observations Per Donita Cruz, Angelina's primary PT, Angelina no longer needs OT. Thus, Saraha to be d/c from outpatient OT. - Objective Short Term Goals ALL GOALS D/C OF 04/27/20; patient no longer needs OT. Will use insurance benefits for continued outpatient PT services. 1. MMT 4/5 bilateral wrist extension. 2. MMT 4/5 bilateral wrist UD . 3. MMT 5/5 bilateral wrist flexion. 4. MMT 5/[address] Cable Stretcher And Tester Goals GOALS MET Angelina will be modified independent with execution of distal UE strengthening home exercise program utilizing provided written and visual instructions from therapist. = mod I with current HEP - - Assessment Assessment of Improvement ALL GOALS D/C OF 04/27/20; patient no longer needs OT. Will use insurance benefits for continued outpatient PT services. - Plan Therapy Recommendations Discharge from Occupational Therapy Additional Therapy Recommendations Re-eval as deemed appropriate by PCP; will use benefit for PT
== END 2020-05-13 14:40 ==
LOC: OT 13:30
PROVIDERS: PCP Physician Assistant; Visit Provider Psychiatry & Neurology Neurology
DX: I69.30 Unspecified sequelae of cerebral infarction (principal)
CPT/HCPCS: 97110; 97166; 97530

== ENCOUNTER 2020-06-21 12:15 | Outpatient (RCR) | payer OTHER, MEDICAID, SELFPAY ==
--- NOTE | 2020-02-02 15:47 | PT.OIE ---
Current Diagnoses Unspecified sequelae of cerebral infarction (02/02/20) Past Medical History (Last Reviewed 07/27/19 @ 00:08 by Liang Nath DO) Endometriosis (Acute) Past Surgical History (Last Updated 07/19/19 @ 11:26 by Crystal Del Rio DO) H/O ureter repair (Acute) Visit Care Team Role Provider Type Christen Figueroa PA-C Primary Care Provider Non-Staff Specialty: [facility] Address: [address] [place] [address], [address], [place], [address] Email: Attending Provider Referring Provider Specialty: Address: Phone: Fax: Email: Physical Therapy Initial Evaluation PT-OP-A Visit Information Start: 02/01/20 07:24 Freq: Status: Active Protocol: Document 02/02/20 12:59 MB (Rec: 02/02/20 13:28 MB [id number]) Out-Patient Physical Therapy Visit Information Visit Information Visit Type Initial Evaluation Visit Start Time 12:59 Visit Stop Time 13:44 Total Visit Minutes 45 Visit Number 1 Evaluation Information Evaluation Date 02/02/20 PT-OP-B Current Condition Start: 02/01/20 07:24 Freq: Status: Active Protocol: Document 02/02/20 12:59 MB (Rec: 02/02/20 13:28 MB [id number]) Current Condition History of Current Condition Onset Date 07/16/2019 Current Complaints Fatigue History of Current Condition Pt reports that she did not have any sxs. 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 She does not remember anything except she had a slight ETIENNE. Her mom was there when she woke up. She was originally dxs with post- concussive syndrome. Her sxs were not getting better and she saw a neurologist. She had three MRIs and 3 CT scans and was found to have brain lesions on right side of brain and occluded middle cerebral artery. She got an ECHO and she has a PFO and a THEODORE and was found that the PFO was very small. US B LEs found superficial blood clot right calf. When she sits down, both of her feet turn blue and her right leg swells and gets better when she gets up and walks. Pt reports left leg pain with fatigue. She has symptoms intermittently and are not correlated with anything. It gets worse at night. PMH: back pain, blood clots, dizziness, falls, HAs, memory loss, neck pain, stroke/TIA, post-concussion syndrome, surgery 2013 on ureter, endometriosis Pt reports that she feels unstable on her LLE. The Cymbalta helps with left leg pain. Pt has taken Progesterone 200 mg at night and has been taking for 1 year. She has taken BCP for at least 15 years. She had many bad reactions to several BCPs and went on and off hormones. Pt has a 1 month history of migraines--sensitive to light and sound and she points to pressure on B temples and behind the eyes. Ice packs, pressure and dark room helped. Reports aspirin s/p stroke and propranolol for HTN and migraine. Pt reports dizziness after the fall, current light- headedness, neck pain after the fall that comes and goes. Pt reports short-term memory loss that is getting better. 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 Lumbar puncture and blood tests ruled out MS. She has not had vision changes. Pt has 1-2 days a week. She likes bike rides but it is hard with balance. She has bad ETIENNE on the right side afterwards. Prior Treatments and Tests Multiple tests mentioned above Treatment Goals Patient/Caregiver Goals Symptom management, balance exercises PT-OP-C Subjective Start: 02/01/20 07:24 Freq: Status: Active Protocol: Document 02/02/20 12:59 MB (Rec: 02/02/20 13:28 MB [id number]) OP-PT Subjective Patient Comments Patient Comments See history of current condition PT-OP-D Balance Start: 02/01/20 07:24 Freq: Status: Active Protocol: Document 02/02/20 12:59 MB (Rec: 02/02/20 14:06 MB [id number]) Balance Tests Other Other Balance Tests Performed Romberg standing with EO, LOB to the left after 5 sec requiring PT asst to prevent fall and so further balance testing deferred today PT-OP-M Strength Start: 02/01/20 07:24 Freq: Status: Active Protocol: Document 02/02/20 12:59 MB (Rec: 02/02/20 14:12 MB [id number]) Shoulder Strength Shoulder Manual Muscle Testing Left Flexion 4 Good Abduction (C5) 4 Good Right Flexion 5 Normal Extension 5 Normal Abduction (C5) 5 Normal Elbow/Forearm Strength Elbow and Forearm Manual Muscle Testing Left Flexion (C6) 4 Good Extension (C7) 4 Good Comments Further forearm, wrist, basting cleaner strengthening deferred to OT Right Flexion (C6) 5 Normal Extension (C7) 5 Normal Comments Further forearm, wrist, basting cleaner strengthening deferred to OT Hip Strength Hip Manual Muscle Testing Left Flexion (L2) 4 Good Right Flexion (L2) 5 Normal Knee Strength Knee Manual Muscle Testing Left Flexion (S2) 4 Good Extension (L3) 4 Good Right Flexion (S2) 5 Normal Extension (L3) 5 Normal Ankle/Foot Strength Ankle and Foot Manual Muscle Testing Left Dorsiflexion (L4) 4 Good Inversion 3 Fair Eversion (S1) 3 Fair Right Dorsiflexion (L4) 5 Normal Inversion 5 Normal Eversion (S1) 5 Normal Toe Strength Toe Manual Muscle Testing Left Great Toe Flexion 3+ Fair+ Right Great Toe Extension 5 Normal PT-OP-Q Treatments Start: 02/01/20 07:24 Freq: Status: Active Protocol: Document 02/02/20 12:59 MB (Rec: 02/02/20 14:09 MB [id number]) Self-Care/Home Management Treatment Education Other Education Education in post-concussive syndrome, concussion being functional dx after known fall , hit on the head and whiplash always associated with concussion. Pt with post- concussive sxs: light sensitivity, fatigue, excessive sleep, ETIENNE, dizziness , short-term memory loss. S&S of stroke and vessel occlusion , benefits of talking with functional medicine pharmacist about medications and any nutritional and/or supplement recommendations post- concussion. PT-OP-T Assessment and Plan Start: 02/01/20 07:24 Freq: Status: Active Protocol: Document 02/02/20 12:59 MB (Rec: 02/02/20 15:47 MB [id number]) Physical Therapy Assessment Rehab Potential Rehabilitation Potential Fair Evaluation Complexity Number of Personal Factors/Comorbidities 3 or More Number of Body Systems Impaired 3 Clinical Presentation at Evaluation Evolving Impairments Impairments Activity Tolerance,Balance, Coordination,Functional Activities,Functional Mobility ,Gait,Pain,Posture,Strength, Vestibular Other Impairments Body systems affected include: neurological, proprioceptive, cardiac, neuromuscular Other Concerns Fall Risk Yes Goals 4 Chcf Goal (LTG) Pt will perform progressive HEP with I including postural, flexibility, balance, breathing, VOR and cardio exercise to improve HRV and parasympathetic nervous response as well as decrease symptoms and improve balance by 04/04/2020. LTG Duration 8 weeks 3 Laborer Concrete Paving Goal (LTG) Pt will present with improved left shoulder flexion, abduction, left hip flexion, left knee flexion and extension and left foot eversion and inversion strength to 5/5 to improve balance by 04/04/2020. LTG Duration 8 weeks 2 Chcf Goal (LTG) Pt will report a 50% improvement in fatigue, dizziness, and headache symptoms to allow return to PLOF by 04/04/2020. LTG Duration 8 weeks 1 Chcf Goal (LTG) Pt will perform WNLs on FGA to decrease fall risk and improve balance by 04/04/2020. LTG Duration 8 weeks Assessment Summary Assessment Pt is a 29 y/o female presenting with a complicated medical presentation. She has a history of BCP use for at least 13 years in setting of endometriosis, fall in shower in July 2019 in which she hit her head and loss consciousness, and reports of right MCA changes and small PFO. Her biggest complaint is fatigue, poor balance and inability to do things that she likes in a safe manner, such as biking. 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 She reports dizziness, ETIENNE, short-term memory loss, neck pain and sensitivity to light and these may be related to post-concussion presentation. She was dx with migraines after the fall in the shower and hit on the head . Pt presents with baseline disconjugate eye movement, normal oculomotor smooth eye movements horizontally, vertically and saccadic eye motion. B finger to nose, rapid pronation and supination , heel mcgarry slides and tapping toes over opposite foot are normal. She denies sensory changes. She does present with left UE and LE weakness as well as LOB to the left with Romberg standing. These are likely related to the dx of stroke. Pt will benefit from for postural, myofascial, breathing, balance and strengthening exercises. Will also work on cardio machines to improve HRV. Recommend follow-up with functional medicine pharmacist to assess her medications and any other supplement and dietary recommendations after fall and strike on head. Pt is currently sleeping 12+ hours a night and PT ed her to consider getting a journal and progressively reducing sleep to allow intake and wake cycles. Pt's presentation is complicated and multi- factorial. She is to get an OT consult and PT recommends cognitive challenges with fine motor tasks to allow her to return to previous high- functioning status. Will defer this to OT. Physical Therapy Plan Frequency and Duration Frequency of Treatment 2x/Week Duration of Treatment 8 weeks Plan of Care Start Date 02/02/20 Plan of Care End Date 04/04/20 Therapeutic Interventions Therapeutic Interventions Balance Training,Canalithic Repositioning,Gait Training, Home Exercise Program,Manual Therapy,Neuromuscular Re- education,Patient/Caregiver Education,Self-Care/Home Management,Sensory Integration ,Soft Tissue Mobilization, Taping,Therapeutic Activities, Therapeutic Exercises, Vestibular Rehabilitation Other Referrals/Consults Referrals/Consults Recommended Functional medicine pharmacists Next Visit Focus/Plan Next Note Type Treatment Note Next Visit Plan Assess HRV and symptoms on cardio machine, likely upright bike as pt likes to bike
--- NOTE | 2020-02-10 15:30 | PT.OTN ---
Current Diagnoses Unspecified sequelae of cerebral infarction (02/10/20) Physical Therapy Treatment Note PT-OP-A Visit Information Start: 02/01/20 07:24 Freq: Status: Active Protocol: Document 02/10/20 14:33 MB (Rec: 02/10/20 15:30 MB [id number]) Out-Patient Physical Therapy Visit Information Visit Information Visit Type Treatment Note Visit Start Time 14:33 Visit Stop Time 15:26 Total Visit Minutes 53 Visit Number 2 PT-OP-B Current Condition Start: 02/01/20 07:24 Freq: Status: Active Protocol: Document 02/02/20 12:59 MB (Rec: 02/02/20 13:28 MB [id number]) Current Condition History of Current Condition Onset Date 07/16/2019 Current Complaints Fatigue History of Current Condition Pt reports that she did not have any sxs. 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 She does not remember anything except she had a slight ETIENNE. Her mom was there when she woke up. She was originally dxs with post- concussive syndrome. Her sxs were not getting better and she saw a neurologist. She had three MRIs and 3 CT scans and was found to have brain lesions on right side of brain and occluded middle cerebral artery. She got an ECHO and she has a PFO and a THEODORE and was found that the PFO was very small. US B LEs found superficial blood clot right calf. When she sits down, both of her feet turn blue and her right leg swells and gets better when she gets up and walks. Pt reports left leg pain with fatigue. She has symptoms intermittently and are not correlated with anything. It gets worse at night. PMH: back pain, blood clots, dizziness, falls, HAs, memory loss, neck pain, stroke/TIA, post-concussion syndrome, surgery 2013 on ureter, endometriosis Pt reports that she feels unstable on her LLE. The Cymbalta helps with left leg pain. Pt has taken Progesterone 200 mg at night and has been taking for 1 year. She has taken BCP for at least 15 years. She had many bad reactions to several BCPs and went on and off hormones. Pt has a 1 month history of migraines--sensitive to light and sound and she points to pressure on B temples and behind the eyes. Ice packs, pressure and dark room helped. Reports aspirin s/p stroke and propranolol for HTN and migraine. Pt reports dizziness after the fall, current light- headedness, neck pain after the fall that comes and goes. Pt reports short-term memory loss that is getting better. 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 Lumbar puncture and blood tests ruled out MS. She has not had vision changes. Pt has 1-2 days a week. She likes bike rides but it is hard with balance. She has bad ETIENNE on the right side afterwards. Prior Treatments and Tests Multiple tests mentioned above Treatment Goals Patient/Caregiver Goals Symptom management, balance exercises PT-OP-C Subjective Start: 02/01/20 07:24 Freq: Status: Active Protocol: Document 02/10/20 14:33 MB (Rec: 02/10/20 15:30 MB [id number]) OP-PT Subjective Patient Comments Patient Comments Pt does not have anything else to report. She will see CERTIFIED RECREATIONAL THERAPIST on Saturday. Pt had a Telehealth visit with doctor about MoyaMoya and was told that she has not active infections and no inflammation. She states that doctor wants her to wait 3 months for symptoms to stabilize and then she will have a CT with perfusion. She will follow-up with neurologist if symptoms progress. Pt reports 4-5/10 ETIENNE in right temporal area and top of head today as well as neck stiffness. PT-OP-D Balance Start: 02/01/20 07:24 Freq: Status: Active Protocol: Document 02/02/20 12:59 MB (Rec: 02/02/20 14:06 MB [id number]) Balance Tests Other Other Balance Tests Performed Romberg standing with EO, LOB to the left after 5 sec requiring PT asst to prevent fall and so further balance testing deferred today PT-OP-M Strength Start: 02/01/20 07:24 Freq: Status: Active Protocol: Document 02/02/20 12:59 MB (Rec: 02/02/20 14:12 MB [id number]) Shoulder Strength Shoulder Manual Muscle Testing Left Flexion 4 Good Abduction (C5) 4 Good Right Flexion 5 Normal Extension 5 Normal Abduction (C5) 5 Normal Elbow/Forearm Strength Elbow and Forearm Manual Muscle Testing Left Flexion (C6) 4 Good Extension (C7) 4 Good Comments Further forearm, wrist, residential life director strengthening deferred to OT Right Flexion (C6) 5 Normal Extension (C7) 5 Normal Comments Further forearm, wrist, residential life director strengthening deferred to OT Hip Strength Hip Manual Muscle Testing Left Flexion (L2) 4 Good Right Flexion (L2) 5 Normal Knee Strength Knee Manual Muscle Testing Left Flexion (S2) 4 Good Extension (L3) 4 Good Right Flexion (S2) 5 Normal Extension (L3) 5 Normal Ankle/Foot Strength Ankle and Foot Manual Muscle Testing Left Dorsiflexion (L4) 4 Good Inversion 3 Fair Eversion (S1) 3 Fair Right Dorsiflexion (L4) 5 Normal Inversion 5 Normal Eversion (S1) 5 Normal Toe Strength Toe Manual Muscle Testing Left Great Toe Flexion 3+ Fair+ Right Great Toe Extension 5 Normal PT-OP-Q Treatments Start: 02/01/20 07:24 Freq: Status: Active Protocol: Document 02/10/20 14:33 MB (Rec: 02/10/20 15:30 MB [id number]) Therapeutic Exercises Supine Exercises Buteyko breathing blocked nostril Comments Treated left nostril: 12 sec hold; 15 sec; 30 sec; 40 sec. HR 64 sats 99% Buteyko breathing Supine Exercise Name Exercise 1; HR 73 BPM and O2 sats 98% before Comments 1st rep: 24 sec 63 BPM, O2 sats 99%; 2nd rep did not time Standing Exercises Wall slide with ball between knees Comments 5 reps cues for slow up and down Infraspinatus MWM with racquet ball Comments Left today as pt reports more tension Intrascapular muscles STM with racquet ball Comments Ed today and pt to add to HEP, more tightness on the left PT-OP-T Assessment and Plan Start: 02/01/20 07:24 Freq: Status: Active Protocol: Document 02/10/20 14:33 MB (Rec: 02/10/20 15:30 MB [id number]) Physical Therapy Assessment Rehab Potential Rehabilitation Potential Fair Evaluation Complexity Number of Personal Factors/Comorbidities 3 or More Number of Body Systems Impaired 3 Clinical Presentation at Evaluation Evolving Impairments Impairments Activity Tolerance,Balance, Coordination,Functional Activities,Functional Mobility ,Gait,Pain,Posture,Strength, Vestibular Other Impairments Body systems affected include: neurological, proprioceptive, cardiac, neuromuscular Other Concerns Fall Risk Yes Goals 4 Long-Term Goal (LTG) Pt will perform progressive HEP with I including postural, flexibility, balance, breathing, VOR and cardio exercise to improve HRV and parasympathetic nervous response as well as decrease symptoms and improve balance by 04/04/2020. LTG Duration 8 weeks 3 Long-Term Goal (LTG) Pt will present with improved left shoulder flexion, abduction, left hip flexion, left knee flexion and extension and left foot eversion and inversion strength to 5/5 to improve balance by 04/04/2020. LTG Duration 8 weeks 2 Long-Term Goal (LTG) Pt will report a 50% improvement in fatigue, dizziness, and headache symptoms to allow return to PLOF by 04/04/2020. LTG Duration 8 weeks 1 Housetrailer Servicer Goal (LTG) Pt will perform WNLs on FGA to decrease fall risk and improve balance by 04/04/2020. LTG Duration 8 weeks Assessment Summary Assessment Pt's ETIENNE is improved after myofascial work with racquet ball today. Initiated LE strengthening and proprioception training with mini squat with ball between knees. Also initiated Buteyko breathing today. Pt's HRV is great in that she drops 10 BPM with breathing exercises ( exhalation). Physical Therapy Plan Frequency and Duration Frequency of Treatment 2x/Week Duration of Treatment 8 weeks Plan of Care Start Date 02/02/20 Plan of Care End Date 04/04/20 Therapeutic Interventions Therapeutic Interventions Balance Training,Canalithic Repositioning,Gait Training, Home Exercise Program,Manual Therapy,Neuromuscular Re- education,Patient/Caregiver Education,Self-Care/Home Management,Sensory Integration ,Soft Tissue Mobilization, Taping,Therapeutic Activities, Therapeutic Exercises, Vestibular Rehabilitation Other Referrals/Consults Referrals/Consults Recommended Functional medicine pharmacists Next Visit Focus/Plan Next Note Type Treatment Note Next Visit Plan Assess HRV and symptoms on cardio machine, likely upright bike as pt likes to bike
--- NOTE | 2020-02-18 08:13 | PT.OTN ---
Current Diagnoses Unspecified sequelae of cerebral infarction (02/18/20) Physical Therapy Treatment Note PT-OP-A Visit Information Start: 02/01/20 07:24 Freq: Status: Active Protocol: Document 02/18/20 07:31 MB (Rec: 02/18/20 08:12 MB [id number]) Out-Patient Physical Therapy Visit Information Visit Information Visit Type Treatment Note Visit Start Time 07:31 Visit Stop Time 08:11 Total Visit Minutes 40 Visit Number 3 PT-OP-B Current Condition Start: 02/01/20 07:24 Freq: Status: Active Protocol: Document 02/02/20 12:59 MB (Rec: 02/02/20 13:28 MB [id number]) Current Condition History of Current Condition Onset Date 07/16/2019 Current Complaints Fatigue History of Current Condition Pt reports that she did not have any sxs. 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 She does not remember anything except she had a slight ETIENNE. Her mom was there when she woke up. She was originally dxs with post- concussive syndrome. Her sxs were not getting better and she saw a neurologist. She had three MRIs and 3 CT scans and was found to have brain lesions on right side of brain and occluded middle cerebral artery. She got an ECHO and she has a PFO and a THEODORE and was found that the PFO was very small. US B LEs found superficial blood clot right calf. When she sits down, both of her feet turn blue and her right leg swells and gets better when she gets up and walks. Pt reports left leg pain with fatigue. She has symptoms intermittently and are not correlated with anything. It gets worse at night. PMH: back pain, blood clots, dizziness, falls, HAs, memory loss, neck pain, stroke/TIA, post-concussion syndrome, surgery 2013 on ureter, endometriosis Pt reports that she feels unstable on her LLE. The Cymbalta helps with left leg pain. Pt has taken Progesterone 200 mg at night and has been taking for 1 year. She has taken BCP for at least 15 years. She had many bad reactions to several BCPs and went on and off hormones. Pt has a 1 month history of migraines--sensitive to light and sound and she points to pressure on B temples and behind the eyes. Ice packs, pressure and dark room helped. Reports aspirin s/p stroke and propranolol for HTN and migraine. Pt reports dizziness after the fall, current light- headedness, neck pain after the fall that comes and goes. Pt reports short-term memory loss that is getting better. 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 Lumbar puncture and blood tests ruled out MS. She has not had vision changes. Pt has 1-2 days a week. She likes bike rides but it is hard with balance. She has bad ETIENNE on the right side afterwards. Prior Treatments and Tests Multiple tests mentioned above Treatment Goals Patient/Caregiver Goals Symptom management, balance exercises PT-OP-C Subjective Start: 02/01/20 07:24 Freq: Status: Active Protocol: Document 02/18/20 07:31 MB (Rec: 02/18/20 08:12 MB [id number]) OP-PT Subjective Patient Comments Patient Comments Pt states that her sleep pattern is alternating every week. She either sleeps too much or too little. Pt only did the leg exercises once this week. PT-OP-D Balance Start: 02/01/20 07:24 Freq: Status: Active Protocol: Document 02/02/20 12:59 MB (Rec: 02/02/20 14:06 MB [id number]) Balance Tests Other Other Balance Tests Performed Romberg standing with EO, LOB to the left after 5 sec requiring PT asst to prevent fall and so further balance testing deferred today PT-OP-M Strength Start: 02/01/20 07:24 Freq: Status: Active Protocol: Document 02/02/20 12:59 MB (Rec: 02/02/20 14:12 MB [id number]) Shoulder Strength Shoulder Manual Muscle Testing Left Flexion 4 Good Abduction (C5) 4 Good Right Flexion 5 Normal Extension 5 Normal Abduction (C5) 5 Normal Elbow/Forearm Strength Elbow and Forearm Manual Muscle Testing Left Flexion (C6) 4 Good Extension (C7) 4 Good Comments Further forearm, wrist, 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 production worker strengthening deferred to OT Right Flexion (C6) 5 Normal Extension (C7) 5 Normal Comments Further forearm, wrist, sawmill production worker strengthening deferred to OT Hip Strength Hip Manual Muscle Testing Left Flexion (L2) 4 Good Right Flexion (L2) 5 Normal Knee Strength Knee Manual Muscle Testing Left Flexion (S2) 4 Good Extension (L3) 4 Good Right Flexion (S2) 5 Normal Extension (L3) 5 Normal Ankle/Foot Strength Ankle and Foot Manual Muscle Testing Left Dorsiflexion (L4) 4 Good Inversion 3 Fair Eversion (S1) 3 Fair Right Dorsiflexion (L4) 5 Normal Inversion 5 Normal Eversion (S1) 5 Normal Toe Strength Toe Manual Muscle Testing Left Great Toe Flexion 3+ Fair+ Right Great Toe Extension 5 Normal PT-OP-Q Treatments Start: 02/01/20 07:24 Freq: Status: Active Protocol: Document 02/18/20 07:31 MB (Rec: 02/18/20 08:12 MB [id number]) Therapeutic Exercises Supine Exercises Hook lying abdominal drawing in and hip abduction with level 1 band Comments Performed abdominal drawing in and hip abduction EFT Comments Reviewed and practiced all exercises Progressive Muscle Relaxation exercises Comments Practiced all exercises today Standing Exercises Infraspinatus MWM with racquet ball Comments Reviewed today Intrascapular muscles STM with racquet ball Comments Reviewed today Self-Care/Home Management Treatment Education Other Education Education in proper sleep hygiene, provided handout and ed in EFT and PRE today PT-OP-T Assessment and Plan Start: 02/01/20 07:24 Freq: Status: Active Protocol: Document 02/18/20 07:31 MB (Rec: 02/18/20 08:12 MB [id number]) Physical Therapy Assessment Rehab Potential Rehabilitation Potential Fair Evaluation Complexity Number of Personal Factors/Comorbidities 3 or More Number of Body Systems Impaired 3 Clinical Presentation at Evaluation Evolving Impairments Impairments Activity Tolerance,Balance, Coordination,Functional Activities,Functional Mobility ,Gait,Pain,Posture,Strength, Vestibular Other Impairments Body systems affected include: neurological, proprioceptive, cardiac, neuromuscular Other Concerns Fall Risk Yes Goals 4 Architecture Faculty Member Goal (LTG) Pt will perform progressive HEP with I including postural, flexibility, balance, breathing, VOR and cardio exercise to improve HRV and parasympathetic nervous response as well as decrease symptoms and improve balance by 04/04/2020. LTG Duration 8 weeks 3 Architecture Faculty Member Goal (LTG) Pt will present with improved left shoulder flexion, abduction, left hip flexion, left knee flexion and extension and left foot eversion and inversion strength to /5 to improve balance by 04/04/2020. LTG Duration 8 weeks 2 Architecture Faculty Member Goal (LTG) Pt will report a 50% improvement in fatigue, dizziness, and headache symptoms to allow return to PLOF by 04/04/2020. LTG Duration 8 weeks 1 Architecture Faculty Member Goal (LTG) Pt will perform WNLs on FGA to decrease fall risk and improve balance by 04/04/2020. LTG Duration 8 weeks Assessment Summary Assessment Progressed core and leg strengthening today in hook lying. Progressed Progressed Relaxation exercises in supine and sleeping hygiene handout. Physical Therapy Plan Frequency and Duration Frequency of Treatment 2x/Week Duration of Treatment 8 weeks Plan of Care Start Date 02/02/20 Plan of Care End Date 04/04/20 Therapeutic Interventions Therapeutic Interventions Balance Training,Canalithic Repositioning,Gait Training, Home Exercise Program,Manual Therapy,Neuromuscular Re- education,Patient/Caregiver Education,Self-Care/Home Management,Sensory Integration ,Soft Tissue Mobilization, Taping,Therapeutic Activities, Therapeutic Exercises, Vestibular Rehabilitation Other Referrals/Consults Referrals/Consults Recommended Functional medicine pharmacists Next Visit Focus/Plan Next Note Type Treatment Note Next Visit Plan Ongoing leg strengthening, balance as able. Consider ankle strengthening and SLR. Assess HRV and symptoms on cardio machine, likely upright bike as pt likes to bike
--- NOTE | 2020-03-09 10:32 | PT.OTN ---
Current Diagnoses Unspecified sequelae of cerebral infarction (03/09/20) Physical Therapy Treatment Note PT-OP-A Visit Information Start: 02/01/20 07:24 Freq: Status: Active Protocol: Document 03/09/20 09:46 MB (Rec: 03/09/20 10:30 MB [id number]) Out-Patient Physical Therapy Visit Information Visit Information Visit Type Treatment Note Visit Start Time 09:46 Visit Stop Time 10:30 Total Visit Minutes 44 Visit Number 4 PT-OP-B Current Condition Start: 02/01/20 07:24 Freq: Status: Active Protocol: Document 02/02/20 12:59 MB (Rec: 02/02/20 13:28 MB [id number]) Current Condition History of Current Condition Onset Date 07/16/2019 Current Complaints Fatigue History of Current Condition Pt reports that she did not have any sxs. 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 She does not remember anything except she had a slight ETIENNE. Her mom was there when she woke up. She was originally dxs with post- concussive syndrome. Her sxs were not getting better and she saw a neurologist. She had three MRIs and 3 CT scans and was found to have brain lesions on right side of brain and occluded middle cerebral artery. She got an ECHO and she has a PFO and a THEODORE and was found that the PFO was very small. US B LEs found superficial blood clot right calf. When she sits down, both of her feet turn blue and her right leg swells and gets better when she gets up and walks. Pt reports left leg pain with fatigue. She has symptoms intermittently and are not correlated with anything. It gets worse at night. PMH: back pain, blood clots, dizziness, falls, HAs, memory loss, neck pain, stroke/TIA, post-concussion syndrome, surgery 2013 on ureter, endometriosis Pt reports that she feels unstable on her LLE. The Cymbalta helps with left leg pain. Pt has taken Progesterone 200 mg at night and has been taking for 1 year. She has taken BCP for at least 15 years. She had many bad reactions to several BCPs and went on and off hormones. Pt has a 1 month history of migraines--sensitive to light and sound and she points to pressure on B temples and behind the eyes. Ice packs, pressure and dark room helped. Reports aspirin s/p stroke and propranolol for HTN and migraine. Pt reports dizziness after the fall, current light- headedness, neck pain after the fall that comes and goes. Pt reports short-term memory loss that is getting better. 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 Lumbar puncture and blood tests ruled out MS. She has not had vision changes. Pt has 1-2 days a week. She likes bike rides but it is hard with balance. She has bad ETIENNE on the right side afterwards. Prior Treatments and Tests Multiple tests mentioned above Treatment Goals Patient/Caregiver Goals Symptom management, balance exercises PT-OP-C Subjective Start: 02/01/20 07:24 Freq: Status: Active Protocol: Document 03/09/20 09:46 MB (Rec: 03/09/20 10:30 MB [id number]) OP-PT Subjective Patient Comments Patient Comments Pt reports a 5/10 right side of head headache. She slept 12 hours night before last. She reports sensitivity to light and some dizziness that is worse with standing. She was confirmed to have Jarrett Jarrett. PT-OP-D Balance Start: 02/01/20 07:24 Freq: Status: Active Protocol: Document 02/02/20 12:59 MB (Rec: 02/02/20 14:06 MB [id number]) Balance Tests Other Other Balance Tests Performed Romberg standing with EO, LOB to the left after 5 sec requiring PT asst to prevent fall and so further balance testing deferred today PT-OP-M Strength Start: 02/01/20 07:24 Freq: Status: Active Protocol: Document 02/02/20 12:59 MB (Rec: 02/02/20 14:12 MB [id number]) Shoulder Strength Shoulder Manual Muscle Testing Left Flexion 4 Good Abduction (C5) 4 Good Right Flexion 5 Normal Extension 5 Normal Abduction (C5) 5 Normal Elbow/Forearm Strength Elbow and Forearm Manual Muscle Testing Left Flexion (C6) 4 Good Extension (C7) 4 Good Comments Further forearm, wrist, wire weaver cloth strengthening deferred to OT Right Flexion (C6) 5 Normal Extension (C7) 5 Normal Comments Further forearm, wrist, wire weaver cloth strengthening deferred to OT Hip Strength Hip Manual Muscle Testing Left Flexion (L2) 4 Good Right Flexion (L2) 5 Normal Knee Strength Knee Manual Muscle Testing Left Flexion (S2) 4 Good Extension (L3) 4 Good Right Flexion (S2) 5 Normal Extension (L3) 5 Normal Ankle/Foot Strength Ankle and Foot Manual Muscle Testing Left Dorsiflexion (L4) 4 Good Inversion 3 Fair Eversion (S1) 3 Fair Right Dorsiflexion (L4) 5 Normal Inversion 5 Normal Eversion (S1) 5 Normal Toe Strength Toe Manual Muscle Testing Left Great Toe Flexion 3+ Fair+ Right Great Toe Extension 5 Normal PT-OP-Q Treatments Start: 02/01/20 07:24 Freq: Status: Active Protocol: Document 03/09/20 09:46 MB (Rec: 03/09/20 10:30 MB [id number]) Manual Therapy Treatment Other Other Manual Treatments Cervical spine: suboccipital release, B SCM STM, B MWM upper traps, cervical paraspinals STM, gentle 1st rib mobs B Self-Care/Home Management Treatment Education Other Education Try to work on sleeping less, keep log of sleeping. She does not like being up when she has a headache. Ed pt to try not sleeping during the day, only wear sunglasses when outside and start exposing self to normal light insight in order not to promote sensitivity. Ed pt in benefits of contacting functional medicine pharmacist re: her medication concerns, etc. PT-OP-T Assessment and Plan Start: 02/01/20 07:24 Freq: Status: Active Protocol: Document 03/09/20 09:46 MB (Rec: 03/09/20 10:30 MB [id number]) Physical Therapy Assessment Rehab Potential Rehabilitation Potential Fair Evaluation Complexity Number of Personal Factors/Comorbidities 3 or More Number of Body Systems Impaired 3 Clinical Presentation at Evaluation Evolving Impairments Impairments Activity Tolerance,Balance, Coordination,Functional Activities,Functional Mobility ,Gait,Pain,Posture,Strength, Vestibular Other Impairments Body systems affected include: neurological, proprioceptive, cardiac, neuromuscular Other Concerns Fall Risk Yes Goals 4 Fdc Goal (LTG) Pt will perform progressive HEP with I including postural, flexibility, balance, breathing, VOR and cardio exercise to improve HRV and parasympathetic nervous response as well as decrease symptoms and improve balance by 04/04/2020. LTG Duration 8 weeks 3 Fdc Goal (LTG) Pt will present with improved left shoulder flexion, abduction, left hip flexion, left knee flexion and extension and left foot eversion and inversion strength to 5/5 to improve balance by 04/04/2020. LTG Duration 8 weeks 2 Disability Insurance Claim Examiner Goal (LTG) Pt will report a 50% improvement in fatigue, dizziness, and headache symptoms to allow return to PLOF by 04/04/2020. LTG Duration 8 weeks 1 Disability Insurance Claim Examiner Goal (LTG) Pt will perform WNLs on FGA to decrease fall risk and improve balance by 04/04/2020. LTG Duration 8 weeks Assessment Summary Assessment Assessed and treated cervical spine today given temporal headache and headache behind the right eye. Pt presents with suboccipital tension. She reports improved (lessened) pain with cervical treatment with pain decreasing from 5/10 to 2/10. Since working on cervical spine improves ETIENNE, pt does have a cervical component to her symptoms. Physical Therapy Plan Frequency and Duration Frequency of Treatment 2x/Week Duration of Treatment 8 weeks Plan of Care Start Date 02/02/20 Plan of Care End Date 04/04/20 Therapeutic Interventions Therapeutic Interventions Balance Training,Canalithic Repositioning,Gait Training, Home Exercise Program,Manual Therapy,Neuromuscular Re- education,Patient/Caregiver Education,Self-Care/Home Management,Sensory Integration ,Soft Tissue Mobilization, Taping,Therapeutic Activities, Therapeutic Exercises, Vestibular Rehabilitation Other Referrals/Consults Referrals/Consults Recommended Functional medicine pharmacists Next Visit Focus/Plan Next Note Type Treatment Note Next Visit Plan Ongoing leg strengthening, balance as able. Consider ankle strengthening and SLR. Assess HRV and symptoms on cardio machine, likely upright bike as pt likes to bike
--- NOTE | 2020-03-16 14:30 | PT.OTN ---
Current Diagnoses Unspecified sequelae of cerebral infarction (03/16/20) Physical Therapy Treatment Note PT-OP-A Visit Information Start: 02/01/20 07:24 Freq: Status: Active Protocol: Document 03/16/20 13:44 MB (Rec: 03/16/20 14:30 MB [id number]) Out-Patient Physical Therapy Visit Information Visit Information Visit Type Treatment Note Visit Start Time 13:44 Visit Stop Time 14:28 Total Visit Minutes 44 Visit Number 5 PT-OP-B Current Condition Start: 02/01/20 07:24 Freq: Status: Active Protocol: Document 02/02/20 12:59 MB (Rec: 02/02/20 13:28 MB [id number]) Current Condition History of Current Condition Onset Date 07/16/2019 Current Complaints Fatigue History of Current Condition Pt reports that she did not have any sxs. 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 She does not remember anything except she had a slight ETIENNE. Her mom was there when she woke up. She was originally dxs with post- concussive syndrome. Her sxs were not getting better and she saw a neurologist. She had three MRIs and 3 CT scans and was found to have brain lesions on right side of brain and occluded middle cerebral artery. She got an ECHO and she has a PFO and a THEODORE and was found that the PFO was very small. US B LEs found superficial blood clot right calf. When she sits down, both of her feet turn blue and her right leg swells and gets better when she gets up and walks. Pt reports left leg pain with fatigue. She has symptoms intermittently and are not correlated with anything. It gets worse at night. PMH: back pain, blood clots, dizziness, falls, HAs, memory loss, neck pain, stroke/TIA, post-concussion syndrome, surgery 2013 on ureter, endometriosis Pt reports that she feels unstable on her LLE. The Cymbalta helps with left leg pain. Pt has taken Progesterone 200 mg at night and has been taking for 1 year. She has taken BCP for at least 15 years. She had many bad reactions to several BCPs and went on and off hormones. Pt has a 1 month history of migraines--sensitive to light and sound and she points to pressure on B temples and behind the eyes. Ice packs, pressure and dark room helped. Reports aspirin s/p stroke and propranolol for HTN and migraine. Pt reports dizziness after the fall, current light- headedness, neck pain after the fall that comes and goes. Pt reports short-term memory loss that is getting better. 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 Lumbar puncture and blood tests ruled out MS. She has not had vision changes. Pt has 1-2 days a week. She likes bike rides but it is hard with balance. She has bad ETIENNE on the right side afterwards. Prior Treatments and Tests Multiple tests mentioned above Treatment Goals Patient/Caregiver Goals Symptom management, balance exercises PT-OP-C Subjective Start: 02/01/20 07:24 Freq: Status: Active Protocol: Document 03/16/20 13:44 MB (Rec: 03/16/20 14:30 MB [id number]) OP-PT Subjective Patient Comments Patient Comments What you did last week helped me the most. It is the least amount of pain I've had since all this. She is keeping a sleep journal. PT-OP-D Balance Start: 02/01/20 07:24 Freq: Status: Active Protocol: Document 02/02/20 12:59 MB (Rec: 02/02/20 14:06 MB [id number]) Balance Tests Other Other Balance Tests Performed Romberg standing with EO, LOB to the left after 5 sec requiring PT asst to prevent fall and so further balance testing deferred today PT-OP-M Strength Start: 02/01/20 07:24 Freq: Status: Active Protocol: Document 02/02/20 12:59 MB (Rec: 02/02/20 14:12 MB [id number]) Shoulder Strength Shoulder Manual Muscle Testing Left Flexion 4 Good Abduction (C5) 4 Good Right Flexion 5 Normal Extension 5 Normal Abduction (C5) 5 Normal Elbow/Forearm Strength Elbow and Forearm Manual Muscle Testing Left Flexion (C6) 4 Good Extension (C7) 4 Good Comments Further forearm, wrist, surveyor oil well directional strengthening deferred to OT Right Flexion (C6) 5 Normal Extension (C7) 5 Normal Comments Further forearm, wrist, surveyor oil well directional strengthening deferred to OT Hip Strength Hip Manual Muscle Testing Left Flexion (L2) 4 Good Right Flexion (L2) 5 Normal Knee Strength Knee Manual Muscle Testing Left Flexion (S2) 4 Good Extension (L3) 4 Good Right Flexion (S2) 5 Normal Extension (L3) 5 Normal Ankle/Foot Strength Ankle and Foot Manual Muscle Testing Left Dorsiflexion (L4) 4 Good Inversion 3 Fair Eversion (S1) 3 Fair Right Dorsiflexion (L4) 5 Normal Inversion 5 Normal Eversion (S1) 5 Normal Toe Strength Toe Manual Muscle Testing Left Great Toe Flexion 3+ Fair+ Right Great Toe Extension 5 Normal PT-OP-Q Treatments Start: 02/01/20 07:24 Freq: Status: Active Protocol: Document 03/16/20 13:44 MB (Rec: 03/16/20 14:30 MB [id number]) Therapeutic Exercises Sitting Exercises Back warp tension tester upper traps and levator with active cervical SB and rotation Comments Focus on the right today Forward and back (flexion and extension isometrics) Comments 5 reps, hold 3 seconds Standing Exercises Scapular retraction with back against wall Comments 10 reps slowly standing against wall Cervical extension and flexion Comments 10 reps slowly Cervical rotation with back against wall Comments 10 reps slowly Manual Therapy Treatment Other Other Manual Treatments Suboccipital release, B SCM STM with MWM PT-OP-T Assessment and Plan Start: 02/01/20 07:24 Freq: Status: Active Protocol: Document 03/16/20 13:44 MB (Rec: 03/16/20 14:30 MB [id number]) Physical Therapy Assessment Rehab Potential Rehabilitation Potential Fair Evaluation Complexity Number of Personal Factors/Comorbidities 3 or More Number of Body Systems Impaired 3 Clinical Presentation at Evaluation Evolving Impairments Impairments Activity Tolerance,Balance, Coordination,Functional Activities,Functional Mobility ,Gait,Pain,Posture,Strength, Vestibular Other Impairments Body systems affected include: neurological, proprioceptive, cardiac, neuromuscular Other Concerns Fall Risk Yes Goals 4 Clipper Counters Goal (LTG) Pt will perform progressive HEP with I including postural, flexibility, balance, breathing, VOR and cardio exercise to improve HRV and parasympathetic nervous response as well as decrease symptoms and improve balance by 04/04/2020. LTG Duration 8 weeks 3 Longterm Goal (LTG) Pt will present with improved left shoulder flexion, abduction, left hip flexion, left knee flexion and extension and left foot eversion and inversion strength to /5 to improve balance by 04/04/2020. LTG Duration 8 weeks 2 Clipper Counters Goal (LTG) Pt will report a 50% improvement in fatigue, dizziness, and headache symptoms to allow return to PLOF by 04/04/2020. LTG Duration 8 weeks 1 Clipper Counters Goal (LTG) Pt will perform WNLs on FGA to decrease fall risk and improve balance by 04/04/2020. LTG Duration 8 weeks Assessment Summary Assessment Ed pt today on use of back warp tension tester with MWM, active range of motion for her neck, isometrics and scapular retraction for posture. Con't progression including manual work as needed. Will not initiate cardiac work this PT course d/t unknown if she will need to have neurovascular surgery. Physical Therapy Plan Frequency and Duration Frequency of Treatment 2x/Week Duration of Treatment 8 weeks Plan of Care Start Date 02/02/20 Plan of Care End Date 04/04/20 Therapeutic Interventions Therapeutic Interventions Balance Training,Canalithic Repositioning,Gait Training, Home Exercise Program,Manual Therapy,Neuromuscular Re- education,Patient/Caregiver Education,Self-Care/Home Management,Sensory Integration ,Soft Tissue Mobilization, Taping,Therapeutic Activities, Therapeutic Exercises, Vestibular Rehabilitation Other Referrals/Consults Referrals/Consults Recommended Functional medicine pharmacists Next Visit Focus/Plan Next Note Type Treatment Note Next Visit Plan Progress as tolerates. Ongoing leg strengthening, balance as able. Consider ankle strengthening and SLR.
--- NOTE | 2020-03-23 14:27 | PT.OTN ---
Current Diagnoses Unspecified sequelae of cerebral infarction (03/23/20) Physical Therapy Treatment Note PT-OP-A Visit Information Start: 02/01/20 07:24 Freq: Status: Active Protocol: Document 03/23/20 13:49 MB (Rec: 03/23/20 14:26 MB [id number]) Out-Patient Physical Therapy Visit Information Visit Information Visit Type Treatment Note Visit Start Time 13:49 Visit Stop Time 14:27 Total Visit Minutes 38 Visit Number 6 PT-OP-B Current Condition Start: 02/01/20 07:24 Freq: Status: Active Protocol: Document 02/02/20 12:59 MB (Rec: 02/02/20 13:28 MB [id number]) Current Condition History of Current Condition Onset Date 07/16/2019 Current Complaints Fatigue History of Current Condition Pt reports that she did not have any sxs. 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 She does not remember anything except she had a slight ETIENNE. Her mom was there when she woke up. She was originally dxs with post- concussive syndrome. Her sxs were not getting better and she saw a neurologist. She had three MRIs and 3 CT scans and was found to have brain lesions on right side of brain and occluded middle cerebral artery. She got an ECHO and she has a PFO and a THEODORE and was found that the PFO was very small. US B LEs found superficial blood clot right calf. When she sits down, both of her feet turn blue and her right leg swells and gets better when she gets up and walks. Pt reports left leg pain with fatigue. She has symptoms intermittently and are not correlated with anything. It gets worse at night. PMH: back pain, blood clots, dizziness, falls, HAs, memory loss, neck pain, stroke/TIA, post-concussion syndrome, surgery 2013 on ureter, endometriosis Pt reports that she feels unstable on her LLE. The Cymbalta helps with left leg pain. Pt has taken Progesterone 200 mg at night and has been taking for 1 year. She has taken BCP for at least 15 years. She had many bad reactions to several BCPs and went on and off hormones. Pt has a 1 month history of migraines--sensitive to light and sound and she points to pressure on B temples and behind the eyes. Ice packs, pressure and dark room helped. Reports aspirin s/p stroke and propranolol for HTN and migraine. Pt reports dizziness after the fall, current light- headedness, neck pain after the fall that comes and goes. Pt reports short-term memory loss that is getting better. 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 Lumbar puncture and blood tests ruled out MS. She has not had vision changes. Pt has 1-2 days a week. She likes bike rides but it is hard with balance. She has bad ETIENNE on the right side afterwards. Prior Treatments and Tests Multiple tests mentioned above Treatment Goals Patient/Caregiver Goals Symptom management, balance exercises PT-OP-C Subjective Start: 02/01/20 07:24 Freq: Status: Active Protocol: Document 03/23/20 13:49 MB (Rec: 03/23/20 14:26 MB [id number]) OP-PT Subjective Patient Comments Patient Comments I'm just tired today. Pt reports that she went on a bike ride on the [place] yesterday. She biked 30 minutes and then got a headache. She when home and slept for 4 hours. PT-OP-D Balance Start: 02/01/20 07:24 Freq: Status: Active Protocol: Document 02/02/20 12:59 MB (Rec: 02/02/20 14:06 MB [id number]) Balance Tests Other Other Balance Tests Performed Romberg standing with EO, LOB to the left after 5 sec requiring PT asst to prevent fall and so further balance testing deferred today PT-OP-M Strength Start: 02/01/20 07:24 Freq: Status: Active Protocol: Document 02/02/20 12:59 MB (Rec: 02/02/20 14:12 MB [id number]) Shoulder Strength Shoulder Manual Muscle Testing Left Flexion 4 Good Abduction (C5) 4 Good Right Flexion 5 Normal Extension 5 Normal Abduction (C5) 5 Normal Elbow/Forearm Strength Elbow and Forearm Manual Muscle Testing Left Flexion (C6) 4 Good Extension (C7) 4 Good Comments Further forearm, wrist, competitive intelligence analyst strengthening deferred to OT Right Flexion (C6) 5 Normal Extension (C7) 5 Normal Comments Further forearm, wrist, competitive intelligence analyst strengthening deferred to OT Hip Strength Hip Manual Muscle Testing Left Flexion (L2) 4 Good Right Flexion (L2) 5 Normal Knee Strength Knee Manual Muscle Testing Left Flexion (S2) 4 Good Extension (L3) 4 Good Right Flexion (S2) 5 Normal Extension (L3) 5 Normal Ankle/Foot Strength Ankle and Foot Manual Muscle Testing Left Dorsiflexion (L4) 4 Good Inversion 3 Fair Eversion (S1) 3 Fair Right Dorsiflexion (L4) 5 Normal Inversion 5 Normal Eversion (S1) 5 Normal Toe Strength Toe Manual Muscle Testing Left Great Toe Flexion 3+ Fair+ Right Great Toe Extension 5 Normal PT-OP-Q Treatments Start: 02/01/20 07:24 Freq: Status: Active Protocol: Document 03/23/20 13:49 MB (Rec: 03/23/20 14:26 MB [id number]) Therapeutic Exercises Sitting Exercises Back rubber flap cutter upper traps and levator with active cervical SB and rotation Comments B today Standing Exercises Cervical extension and flexion Comments 10 reps slowly Self-Care/Home Management Treatment Education Other Education Headache care and ed pt to talk with doctor and pharmacist: 1-Sleeping habits as far as sleeping time, napping, hygiene 2-Talk with pharmacist and/or doctor about creatine, melatonin, magnesium, vitamin D in setting of headache after concussion and sleep issues 3-Hydration including no caffeine and electrolytes 4-Relaxation practices-- [place] breathing, progressive muscle relaxation exercises 5-Cervical spine flexibility ( decreased tension)--racquet ball, back rubber flap cutter, AROM, towel roll to support neck at night 6-Eating meals at consistent time, low inflammatory diet 7-Blue light reduction, possible use of yellow glasses 8-Exercise--walking 20 minutes a day and stop if increased symptoms PT-OP-T Assessment and Plan Start: 02/01/20 07:24 Freq: Status: Active Protocol: Document 03/23/20 13:49 MB (Rec: 03/23/20 14:26 MB [id number]) Physical Therapy Assessment Rehab Potential Rehabilitation Potential Fair Evaluation Complexity Number of Personal Factors/Comorbidities 3 or More Number of Body Systems Impaired 3 Clinical Presentation at Evaluation Evolving Impairments Impairments Activity Tolerance,Balance, Coordination,Functional Activities,Functional Mobility ,Gait,Pain,Posture,Strength, Vestibular Other Impairments Body systems affected include: neurological, proprioceptive, cardiac, neuromuscular Other Concerns Fall Risk Yes Goals 4 Ground Crew Supervisor Goal (LTG) Pt will perform progressive HEP with I including postural, flexibility, balance, breathing, VOR and cardio exercise to improve HRV and parasympathetic nervous response as well as decrease symptoms and improve balance by 04/04/2020. LTG Duration 8 weeks 3 Correction Goal (LTG) Pt will present with improved left shoulder flexion, abduction, left hip flexion, left knee flexion and extension and left foot eversion and inversion strength to 5/5 to improve balance by 04/04/2020. LTG Duration 8 weeks 2 Ground Crew Supervisor Goal (LTG) Pt will report a 50% improvement in fatigue, dizziness, and headache symptoms to allow return to PLOF by 04/04/2020. LTG Duration 8 weeks 1 Ground Crew Supervisor Goal (LTG) Pt will perform WNLs on FGA to decrease fall risk and improve balance by 04/04/2020. LTG Duration 8 weeks Assessment Summary Assessment Extensive education about headache today. Ed pt to follow-up with pharmacist and doctor about this education. Will con't to address dizziness with cervical issues . Will not initiate cardiac work this PT course d/t unknown if she will need to have neurovascular surgery. Physical Therapy Plan Frequency and Duration Frequency of Treatment 2x/Week Duration of Treatment 8 weeks Plan of Care Start Date 02/02/20 Plan of Care End Date 04/04/20 Therapeutic Interventions Therapeutic Interventions Balance Training,Canalithic Repositioning,Gait Training, Home Exercise Program,Manual Therapy,Neuromuscular Re- education,Patient/Caregiver Education,Self-Care/Home Management,Sensory Integration ,Soft Tissue Mobilization, Taping,Therapeutic Activities, Therapeutic Exercises, Vestibular Rehabilitation Other Referrals/Consults Referrals/Consults Recommended Functional medicine pharmacist , talk with regular pharmacist or doctor about headache education, any supplement recommendations Next Visit Focus/Plan Next Note Type Treatment Note Next Visit Plan Consider further assessment of cranial nerves, VOR and visual motor. Progress as tolerates. Ongoing leg strengthening, balance as able . Consider ankle strengthening and SLR.
--- NOTE | 2020-03-30 15:09 | PT.OTN ---
Current Diagnoses Unspecified sequelae of cerebral infarction (03/30/20) Physical Therapy Treatment Note PT-OP-A Visit Information Start: 02/01/20 07:24 Freq: Status: Active Protocol: Document 03/30/20 14:33 MB (Rec: 03/30/20 15:08 MB [id number]) Out-Patient Physical Therapy Visit Information Visit Information Visit Type Treatment Note Visit Start Time 14:33 Visit Stop Time 15:11 Total Visit Minutes 38 Visit Number 7 PT-OP-B Current Condition Start: 02/01/20 07:24 Freq: Status: Active Protocol: Document 02/02/20 12:59 MB (Rec: 02/02/20 13:28 MB [id number]) Current Condition History of Current Condition Onset Date 07/16/2019 Current Complaints Fatigue History of Current Condition Pt reports that she did not have any sxs. 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 She does not remember anything except she had a slight ETIENNE. Her mom was there when she woke up. She was originally dxs with post- concussive syndrome. Her sxs were not getting better and she saw a neurologist. She had three MRIs and 3 CT scans and was found to have brain lesions on right side of brain and occluded middle cerebral artery. She got an ECHO and she has a PFO and a THEODORE and was found that the PFO was very small. US B LEs found superficial blood clot right calf. When she sits down, both of her feet turn blue and her right leg swells and gets better when she gets up and walks. Pt reports left leg pain with fatigue. She has symptoms intermittently and are not correlated with anything. It gets worse at night. PMH: back pain, blood clots, dizziness, falls, HAs, memory loss, neck pain, stroke/TIA, post-concussion syndrome, surgery 2013 on ureter, endometriosis Pt reports that she feels unstable on her LLE. The Cymbalta helps with left leg pain. Pt has taken Progesterone 200 mg at night and has been taking for 1 year. She has taken BCP for at least 15 years. She had many bad reactions to several BCPs and went on and off hormones. Pt has a 1 month history of migraines--sensitive to light and sound and she points to pressure on B temples and behind the eyes. Ice packs, pressure and dark room helped. Reports aspirin s/p stroke and propranolol for HTN and migraine. Pt reports dizziness after the fall, current light- headedness, neck pain after the fall that comes and goes. Pt reports short-term memory loss that is getting better. 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 Lumbar puncture and blood tests ruled out MS. She has not had vision changes. Pt has 1-2 days a week. She likes bike rides but it is hard with balance. She has bad ETIENNE on the right side afterwards. Prior Treatments and Tests Multiple tests mentioned above Treatment Goals Patient/Caregiver Goals Symptom management, balance exercises PT-OP-C Subjective Start: 02/01/20 07:24 Freq: Status: Active Protocol: Document 03/30/20 14:33 MB (Rec: 03/30/20 15:08 MB [id number]) OP-PT Subjective Patient Comments Patient Comments I'm dog sitting. I really like it. It is getting me outside to walk. I am getting tired with the walking. My head feels heavy after walking . I am sleeping 8-9 hours at night and not waking up with headaches. I do have to take 2 naps for about 2 hours after walking the dog. PT-OP-D Balance Start: 02/01/20 07:24 Freq: Status: Active Protocol: Document 02/02/20 12:59 MB (Rec: 02/02/20 14:06 MB [id number]) Balance Tests Other Other Balance Tests Performed Romberg standing with EO, LOB to the left after 5 sec requiring PT asst to prevent fall and so further balance testing deferred today PT-OP-M Strength Start: 02/01/20 07:24 Freq: Status: Active Protocol: Document 02/02/20 12:59 MB (Rec: 02/02/20 14:12 MB [id number]) Shoulder Strength Shoulder Manual Muscle Testing Left Flexion 4 Good Abduction (C5) 4 Good Right Flexion 5 Normal Extension 5 Normal Abduction (C5) 5 Normal Elbow/Forearm Strength Elbow and Forearm Manual Muscle Testing Left Flexion (C6) 4 Good Extension (C7) 4 Good Comments Further forearm, wrist, obedience trainer strengthening deferred to OT Right Flexion (C6) 5 Normal Extension (C7) 5 Normal Comments Further forearm, wrist, obedience trainer strengthening deferred to OT Hip Strength Hip Manual Muscle Testing Left Flexion (L2) 4 Good Right Flexion (L2) 5 Normal Knee Strength Knee Manual Muscle Testing Left Flexion (S2) 4 Good Extension (L3) 4 Good Right Flexion (S2) 5 Normal Extension (L3) 5 Normal Ankle/Foot Strength Ankle and Foot Manual Muscle Testing Left Dorsiflexion (L4) 4 Good Inversion 3 Fair Eversion (S1) 3 Fair Right Dorsiflexion (L4) 5 Normal Inversion 5 Normal Eversion (S1) 5 Normal Toe Strength Toe Manual Muscle Testing Left Great Toe Flexion 3+ Fair+ Right Great Toe Extension 5 Normal PT-OP-Q Treatments Start: 02/01/20 07:24 Freq: Status: Active Protocol: Document 03/30/20 14:33 MB (Rec: 03/30/20 15:08 MB [id number]) Therapeutic Exercises Supine Exercises Diaphragm breathing Comments 5 reps slowy, hook lying today Self-MWM B SCM with trigger point pressure and active rotation Side bilateral Comments Pt treats the left, 10 rotations of neck Manual Therapy Treatment Other Other Manual Treatments B upper traps STM with MWM, suboccipital release, grade II -III PA mobs middle cervical spine, MWM B SCM, left 1st rib isometric mobilization PT-OP-T Assessment and Plan Start: 02/01/20 07:24 Freq: Status: Active Protocol: Document 03/30/20 14:33 MB (Rec: 03/30/20 15:08 MB [id number]) Physical Therapy Assessment Rehab Potential Rehabilitation Potential Fair Evaluation Complexity Number of Personal Factors/Comorbidities 3 or More Number of Body Systems Impaired 3 Clinical Presentation at Evaluation Evolving Impairments Impairments Activity Tolerance,Balance, Coordination,Functional Activities,Functional Mobility ,Gait,Pain,Posture,Strength, Vestibular Other Impairments Body systems affected include: neurological, proprioceptive, cardiac, neuromuscular Other Concerns Fall Risk Yes Goals 4 Shelter Goal (LTG) Pt will perform progressive HEP with I including postural, flexibility, balance, breathing, VOR and cardio exercise to improve HRV and parasympathetic nervous response as well as decrease symptoms and improve balance by 04/04/2020. LTG Duration 8 weeks 3 Scale Agent Goal (LTG) Pt will present with improved left shoulder flexion, abduction, left hip flexion, left knee flexion and extension and left foot eversion and inversion strength to 5/5 to improve balance by 04/04/2020. LTG Duration 8 weeks 2 Scale Agent Goal (LTG) Pt will report a 50% improvement in fatigue, dizziness, and headache symptoms to allow return to PLOF by 04/04/2020. LTG Duration 8 weeks 1 Scale Agent Goal (LTG) Pt will perform WNLs on FGA to decrease fall risk and improve balance by 04/04/2020. LTG Duration 8 weeks Assessment Summary Assessment Will con't to address dizziness with cervical issues . Will not initiate cardiac work this PT course d/t unknown if she will need to have neurovascular surgery. Physical Therapy Plan Frequency and Duration Frequency of Treatment 2x/Week Duration of Treatment 8 weeks Plan of Care Start Date 02/02/20 Plan of Care End Date 04/04/20 Therapeutic Interventions Therapeutic Interventions Balance Training,Canalithic Repositioning,Gait Training, Home Exercise Program,Manual Therapy,Neuromuscular Re- education,Patient/Caregiver Education,Self-Care/Home Management,Sensory Integration ,Soft Tissue Mobilization, Taping,Therapeutic Activities, Therapeutic Exercises, Vestibular Rehabilitation Other Referrals/Consults Referrals/Consults Recommended Functional medicine pharmacist , talk with regular pharmacist or doctor about headache education, any supplement recommendations Next Visit Focus/Plan Next Note Type Treatment Note Next Visit Plan Consider further assessment of cranial nerves, VOR and visual motor. Progress as tolerates. Ongoing leg strengthening, balance as able . Consider ankle strengthening and SLR.
--- NOTE | 2020-04-06 13:22 | PT.OTN ---
Current Diagnoses Unspecified sequelae of cerebral infarction (04/06/20) Physical Therapy Treatment Note PT-OP-A Visit Information Start: 02/01/20 07:24 Freq: Status: Active Protocol: Document 04/06/20 12:19 MB (Rec: 04/06/20 13:21 MB [id number]) Out-Patient Physical Therapy Visit Information Visit Information Visit Type Treatment Note Visit Start Time 12:19 Visit Stop Time 13:12 Total Visit Minutes 53 Visit Number 8 PT-OP-B Current Condition Start: 02/01/20 07:24 Freq: Status: Active Protocol: Document 02/02/20 12:59 MB (Rec: 02/02/20 13:28 MB [id number]) Current Condition History of Current Condition Onset Date 07/16/2019 Current Complaints Fatigue History of Current Condition Pt reports that she did not have any sxs. 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 She does not remember anything except she had a slight ETIENNE. Her mom was there when she woke up. She was originally dxs with post- concussive syndrome. Her sxs were not getting better and she saw a neurologist. She had three MRIs and 3 CT scans and was found to have brain lesions on right side of brain and occluded middle cerebral artery. She got an ECHO and she has a PFO and a THEODORE and was found that the PFO was very small. US B LEs found superficial blood clot right calf. When she sits down, both of her feet turn blue and her right leg swells and gets better when she gets up and walks. Pt reports left leg pain with fatigue. She has symptoms intermittently and are not correlated with anything. It gets worse at night. PMH: back pain, blood clots, dizziness, falls, HAs, memory loss, neck pain, stroke/TIA, post-concussion syndrome, surgery 2013 on ureter, endometriosis Pt reports that she feels unstable on her LLE. The Cymbalta helps with left leg pain. Pt has taken Progesterone 200 mg at night and has been taking for 1 year. She has taken BCP for at least 15 years. She had many bad reactions to several BCPs and went on and off hormones. Pt has a 1 month history of migraines--sensitive to light and sound and she points to pressure on B temples and behind the eyes. Ice packs, pressure and dark room helped. Reports aspirin s/p stroke and propranolol for HTN and migraine. Pt reports dizziness after the fall, current light- headedness, neck pain after the fall that comes and goes. Pt reports short-term memory loss that is getting better. 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 Lumbar puncture and blood tests ruled out MS. She has not had vision changes. Pt has 1-2 days a week. She likes bike rides but it is hard with balance. She has bad ETIENNE on the right side afterwards. Prior Treatments and Tests Multiple tests mentioned above Treatment Goals Patient/Caregiver Goals Symptom management, balance exercises PT-OP-C Subjective Start: 02/01/20 07:24 Freq: Status: Active Protocol: Document 04/06/20 12:19 MB (Rec: 04/06/20 13:21 MB [id number]) OP-PT Subjective Patient Comments Patient Comments I have a headache today. She received CDs of her diagnostics so that they can be sent to the [facility] [place]. PT-OP-D Balance Start: 02/01/20 07:24 Freq: Status: Active Protocol: Document 02/02/20 12:59 MB (Rec: 02/02/20 14:06 MB [id number]) Balance Tests Other Other Balance Tests Performed Romberg standing with EO, LOB to the left after 5 sec requiring PT asst to prevent fall and so further balance testing deferred today PT-OP-M Strength Start: 02/01/20 07:24 Freq: Status: Active Protocol: Document 02/02/20 12:59 MB (Rec: 02/02/20 14:12 MB [id number]) Shoulder Strength Shoulder Manual Muscle Testing Left Flexion 4 Good Abduction (C5) 4 Good Right Flexion 5 Normal Extension 5 Normal Abduction (C5) 5 Normal Elbow/Forearm Strength Elbow and Forearm Manual Muscle Testing Left Flexion (C6) 4 Good Extension (C7) 4 Good Comments Further forearm, wrist, court orderly strengthening deferred to OT Right Flexion (C6) 5 Normal Extension (C7) 5 Normal Comments Further forearm, wrist, court orderly strengthening deferred to OT Hip Strength Hip Manual Muscle Testing Left Flexion (L2) 4 Good Right Flexion (L2) 5 Normal Knee Strength Knee Manual Muscle Testing Left Flexion (S2) 4 Good Extension (L3) 4 Good Right Flexion (S2) 5 Normal Extension (L3) 5 Normal Ankle/Foot Strength Ankle and Foot Manual Muscle Testing Left Dorsiflexion (L4) 4 Good Inversion 3 Fair Eversion (S1) 3 Fair Right Dorsiflexion (L4) 5 Normal Inversion 5 Normal Eversion (S1) 5 Normal Toe Strength Toe Manual Muscle Testing Left Great Toe Flexion 3+ Fair+ Right Great Toe Extension 5 Normal PT-OP-Q Treatments Start: 02/01/20 07:24 Freq: Status: Active Protocol: Document 04/06/20 12:19 MB (Rec: 04/06/20 13:21 MB [id number]) Therapeutic Exercises Other Exercises Reviewed HEP Comments Reviewed all exercises verbally today Manual Therapy Treatment Other Other Manual Treatments B SCM with MWM, suboccipital release, grade II-III PA mobs middle cervical spine, left 1st rib isometric mobilization Neuro Re-Education Treatment Movement Re-Education Movement Re-education Activities FGA score 15/30 PT-OP-T Assessment and Plan Start: 02/01/20 07:24 Freq: Status: Active Protocol: Document 04/06/20 12:19 MB (Rec: 04/06/20 13:21 MB [id number]) Physical Therapy Assessment Rehab Potential Rehabilitation Potential Fair Evaluation Complexity Number of Personal Factors/Comorbidities 3 or More Number of Body Systems Impaired 3 Clinical Presentation at Evaluation Evolving Impairments Impairments Activity Tolerance,Balance, Coordination,Functional Activities,Functional Mobility ,Gait,Pain,Posture,Strength, Vestibular Other Impairments Body systems affected include: neurological, proprioceptive, cardiac, neuromuscular Other Concerns Fall Risk Yes Goals 4 Test Engine Operator Goal (LTG) Pt will perform progressive HEP with I including postural, flexibility, balance, LE strengthening, breathing, and VOR exercises to decrease symptoms and improve balance by 06/30/2020. 04/06/2020: Given incomplete work-up of Luiza Jarrett, revised current PT plan to remove cardio intervention with PT. She poorly tolerates leg strengthening d/t fatigue and focus is on postural and relaxation exercises to manage HAs. She is walking more since starting PT. LTG Duration 11 weeks 3 Test Engine Operator Goal (LTG) Pt will present with improved left shoulder flexion, abduction, left hip flexion, left knee flexion and extension and left foot eversion and inversion strength to 5/5 to improve balance by 04/04/2020. LTG Duration 11 weeks 2 Test Engine Operator Goal (LTG) Pt will report a 50% improvement in fatigue, dizziness, and headache symptoms to allow return to PLOF by 06/30/2020. 04/06/2020: Pt reports an overall 10% improvement in fatigue, a 5% improvement in dizziness and a 25-30% improvement in HAs since starting PT. Cervical work has been most beneficial. LTG Duration 11 weeks 1 Halfway Goal (LTG) Pt will perform WNLs on FGA to decrease fall risk and improve balance by 06/30/2020. 04/06/2020: FGA score is 15/30 and reflects high fall risk. She has most trouble with walking tandem, with eyes closed and vertical head turns . LTG Duration 11 weeks Assessment Summary Assessment Pt presents with improvement in headaches, fatigue and dizziness since starting PT. She is working on sleeping hygiene, meaning sleeping less hours at night and napping less. She is performing progressive postural, relaxation and flexibility exercises. She is walking more outside. She has had poor tolerance to LE strengthening d/t fatigue and PT has not focused on this d/t possible unstable condition with Luiza Jarrett and pending further work- up. Her balance con't to be impaired with testing today. Will progress balance exercises as tolerates. Will con't to address dizziness with cervical issues. Will not initiate cardiac work this PT course d/t unknown if she will need to have neurovascular surgery. Pt will benefit from ongoing PT to improve balance, strength and cervical and vestibular symptoms. Once again, symptom reports will be a major guide to treatment d/t complicated and possible unstable medical presentation. Once again, PT does feel that a large portion of her headaches are post- concussive in nature d/t hit on head and improvement with manual work. Physical Therapy Plan Frequency and Duration Frequency of Treatment 1x/Week Duration of Treatment 11 weeks Plan of Care Start Date 04/06/20 Plan of Care End Date 06/30/20 Therapeutic Interventions Therapeutic Interventions Balance Training,Canalithic Repositioning,Gait Training, Home Exercise Program,Manual Therapy,Neuromuscular Re- education,Patient/Caregiver Education,Self-Care/Home Management,Sensory Integration ,Soft Tissue Mobilization, Taping,Therapeutic Activities, Therapeutic Exercises, Vestibular Rehabilitation Other Referrals/Consults Referrals/Consults Recommended Functional medicine pharmacist , talk with regular pharmacist or doctor about headache education, any supplement recommendations Next Visit Focus/Plan Next Note Type Treatment Note Next Visit Plan Consider further assessment of cranial nerves, VOR and visual motor. Progress as tolerates. Ongoing leg strengthening, balance as able . Consider ankle strengthening and SLR.
--- NOTE | 2020-04-06 13:24 | PT.OPPOC ---
Physical, Occupational & Speech Therapy At [facility] Current Diagnoses Unspecified sequelae of cerebral infarction (04/06/20) Visit Care Team Role Provider Type Christen Figueroa PA-C Primary Care Provider Non-Staff Specialty: Family Practice Address: [address], [address], [place], [address] Email: Radhames Bullock Attending Provider Non-Staff Referring Provider Specialty: Psychiatry Address: [address] [place] [address], [id number] Email: Plan Of Care PT-OP-T Assessment and Plan Start: 02/01/20 07:24 Freq: Status: Active Protocol: Document 04/06/20 12:19 MB (Rec: 04/06/20 13:21 MB [id number]) Physical Therapy Assessment Rehab Potential Rehabilitation Potential Fair Evaluation Complexity Number of Personal Factors/Comorbidities 3 or More Number of Body Systems Impaired 3 Clinical Presentation at Evaluation Evolving Impairments Impairments Activity Tolerance,Balance, Coordination,Functional Activities,Functional Mobility ,Gait,Pain,Posture,Strength, Vestibular Other Impairments Body systems affected include: neurological, proprioceptive, cardiac, neuromuscular Other Concerns Fall Risk Yes Goals 4 Chcf Goal (LTG) Pt will perform progressive HEP with I including postural, flexibility, balance, LE strengthening, breathing, and VOR exercises to decrease symptoms and improve balance by 06/30/2020. 04/06/2020: Given incomplete work-up of Luiza Jarrett, revised current PT plan to remove cardio intervention with PT. She poorly tolerates leg strengthening d/t fatigue and focus is on postural and relaxation exercises to manage HAs. She is walking more since starting PT. LTG Duration 11 weeks 3 Data Security Coordinator Goal (LTG) Pt will present with improved left shoulder flexion, abduction, left hip flexion, left knee flexion and extension and left foot eversion and inversion strength to 5/5 to improve balance by 06/30/2020. 04/06/2020: Deferred testing today d/t triaging needs LTG Duration 11 weeks 2 Data Security Coordinator Goal (LTG) Pt will report a 50% improvement in fatigue, dizziness, and headache symptoms to allow return to PLOF by 06/30/2020. 04/06/2020: Pt reports an overall 10% improvement in fatigue, a 5% improvement in dizziness and a 25-30% improvement in HAs since starting PT. Cervical work has been most beneficial. LTG Duration 11 weeks 1 Data Security Coordinator Goal (LTG) Pt will perform WNLs on FGA to decrease fall risk and improve balance by 06/30/2020. 04/06/2020: FGA score is 15/30 and reflects high fall risk. She has most trouble with walking tandem, with eyes closed and vertical head turns . LTG Duration 11 weeks Assessment Summary Assessment Pt presents with improvement in headaches, fatigue and dizziness since starting PT. She is working on sleeping hygiene, meaning sleeping less hours at night and napping less. She is performing progressive postural, relaxation and flexibility exercises. She is walking more outside. She has had poor tolerance to LE strengthening d/t fatigue and PT has not focused on this d/t possible unstable condition with Luiza Jarrett and pending further work- up. Her balance con't to be impaired with testing today. Will progress balance exercises as tolerates. Will con't to address dizziness with cervical issues. Will not initiate cardiac work this PT course d/t unknown if she will need to have neurovascular surgery. Pt will benefit from ongoing PT to improve balance, strength and cervical and vestibular symptoms. Once again, symptom reports will be a major guide to treatment d/t complicated and possible unstable medical presentation. Once again, PT does feel that a large portion of her headaches are post- concussive in nature d/t hit on head and improvement with manual work. Physical Therapy Plan Frequency and Duration Frequency of Treatment 1x/Week Duration of Treatment 11 weeks Plan of Care Start Date 04/06/20 Plan of Care End Date 06/30/20 Therapeutic Interventions Therapeutic Interventions Balance Training,Canalithic Repositioning,Gait Training, Home Exercise Program,Manual Therapy,Neuromuscular Re- education,Patient/Caregiver Education,Self-Care/Home Management,Sensory Integration ,Soft Tissue Mobilization, Taping,Therapeutic Activities, Therapeutic Exercises, Vestibular Rehabilitation Other Referrals/Consults Referrals/Consults Recommended Functional medicine pharmacist , talk with regular pharmacist or doctor about headache education, any supplement recommendations Next Visit Focus/Plan Next Note Type Treatment Note Next Visit Plan Consider further assessment of cranial nerves, VOR and visual motor. Progress as tolerates. Ongoing leg strengthening, balance as able . Consider ankle strengthening and SLR. Plan of Care Dates Plan of Care Start Date 04/06/20 Plan of Care End Date 06/30/20 Electronically Signed by: Donita Cruz, DAQUAN 04/06/20 [id number] Please Sign and Return: I have reviewed this Plan of Care and certify that the skilled therapy services above are required to meet the patient?s needs. Physician Signature Date Printed Name and Credentials Clinical Instructor Signature Printed Name and Credentials
--- NOTE | 2020-04-11 10:56 | PT.OTN ---
Current Diagnoses Unspecified sequelae of cerebral infarction (04/11/20) Physical Therapy Treatment Note PT-OP-A Visit Information Start: 02/01/20 07:24 Freq: Status: Active Protocol: Document 04/11/20 09:48 MB (Rec: 04/11/20 10:56 MB [id number]) Out-Patient Physical Therapy Visit Information Visit Information Visit Type Treatment Note Visit Start Time 09:48 Visit Stop Time 10:48 Total Visit Minutes 60 Visit Number 9 PT-OP-B Current Condition Start: 02/01/20 07:24 Freq: Status: Active Protocol: Document 02/02/20 12:59 MB (Rec: 02/02/20 13:28 MB [id number]) Current Condition History of Current Condition Onset Date 07/16/2019 Current Complaints Fatigue History of Current Condition Pt reports that she did not have any sxs. 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 She does not remember anything except she had a slight ETIENNE. Her mom was there when she woke up. She was originally dxs with post- concussive syndrome. Her sxs were not getting better and she saw a neurologist. She had three MRIs and 3 CT scans and was found to have brain lesions on right side of brain and occluded middle cerebral artery. She got an ECHO and she has a PFO and a THEODORE and was found that the PFO was very small. US B LEs found superficial blood clot right calf. When she sits down, both of her feet turn blue and her right leg swells and gets better when she gets up and walks. Pt reports left leg pain with fatigue. She has symptoms intermittently and are not correlated with anything. It gets worse at night. PMH: back pain, blood clots, dizziness, falls, HAs, memory loss, neck pain, stroke/TIA, post-concussion syndrome, surgery 2013 on ureter, endometriosis Pt reports that she feels unstable on her LLE. The Cymbalta helps with left leg pain. Pt has taken Progesterone 200 mg at night and has been taking for 1 year. She has taken BCP for at least 15 years. She had many bad reactions to several BCPs and went on and off hormones. Pt has a 1 month history of migraines--sensitive to light and sound and she points to pressure on B temples and behind the eyes. Ice packs, pressure and dark room helped. Reports aspirin s/p stroke and propranolol for HTN and migraine. Pt reports dizziness after the fall, current light- headedness, neck pain after the fall that comes and goes. Pt reports short-term memory loss that is getting better. 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 Lumbar puncture and blood tests ruled out MS. She has not had vision changes. Pt has 1-2 days a week. She likes bike rides but it is hard with balance. She has bad ETIENNE on the right side afterwards. Prior Treatments and Tests Multiple tests mentioned above Treatment Goals Patient/Caregiver Goals Symptom management, balance exercises PT-OP-C Subjective Start: 02/01/20 07:24 Freq: Status: Active Protocol: Document 04/11/20 09:48 MB (Rec: 04/11/20 10:56 MB [id number]) OP-PT Subjective Patient Comments Patient Comments My headache has moved up to behind my right eye ball. PT-OP-D Balance Start: 02/01/20 07:24 Freq: Status: Active Protocol: Document 02/02/20 12:59 MB (Rec: 02/02/20 14:06 MB [id number]) Balance Tests Other Other Balance Tests Performed Romberg standing with EO, LOB to the left after 5 sec requiring PT asst to prevent fall and so further balance testing deferred today PT-OP-M Strength Start: 02/01/20 07:24 Freq: Status: Active Protocol: Document 02/02/20 12:59 MB (Rec: 02/02/20 14:12 MB [id number]) Shoulder Strength Shoulder Manual Muscle Testing Left Flexion 4 Good Abduction (C5) 4 Good Right Flexion 5 Normal Extension 5 Normal Abduction (C5) 5 Normal Elbow/Forearm Strength Elbow and Forearm Manual Muscle Testing Left Flexion (C6) 4 Good Extension (C7) 4 Good Comments Further forearm, wrist, refrigerating engineer strengthening deferred to OT Right Flexion (C6) 5 Normal Extension (C7) 5 Normal Comments Further forearm, wrist, refrigerating engineer strengthening deferred to OT Hip Strength Hip Manual Muscle Testing Left Flexion (L2) 4 Good Right Flexion (L2) 5 Normal Knee Strength Knee Manual Muscle Testing Left Flexion (S2) 4 Good Extension (L3) 4 Good Right Flexion (S2) 5 Normal Extension (L3) 5 Normal Ankle/Foot Strength Ankle and Foot Manual Muscle Testing Left Dorsiflexion (L4) 4 Good Inversion 3 Fair Eversion (S1) 3 Fair Right Dorsiflexion (L4) 5 Normal Inversion 5 Normal Eversion (S1) 5 Normal Toe Strength Toe Manual Muscle Testing Left Great Toe Flexion 3+ Fair+ Right Great Toe Extension 5 Normal PT-OP-Q Treatments Start: 02/01/20 07:24 Freq: Status: Active Protocol: Document 04/11/20 09:48 MB (Rec: 04/11/20 10:56 MB [id number]) Manual Therapy Treatment Other Other Manual Treatments Pt agrees to Counterstrain to assess and treat fascial tightness and PT treats stacks B upper rib cartilage, B trigeminal nerve, B standard lymphatic head to thoracic, B AINTS PT-OP-T Assessment and Plan Start: 02/01/20 07:24 Freq: Status: Active Protocol: Document 04/11/20 09:48 MB (Rec: 04/11/20 10:56 MB [id number]) Physical Therapy Assessment Rehab Potential Rehabilitation Potential Fair Evaluation Complexity Number of Personal Factors/Comorbidities 3 or More Number of Body Systems Impaired 3 Clinical Presentation at Evaluation Evolving Impairments Impairments Activity Tolerance,Balance, Coordination,Functional Activities,Functional Mobility ,Gait,Pain,Posture,Strength, Vestibular Other Impairments Body systems affected include: neurological, proprioceptive, cardiac, neuromuscular Other Concerns Fall Risk Yes Goals 4 Campus Supervisor Goal (LTG) Pt will perform progressive HEP with I including postural, flexibility, balance, LE strengthening, breathing, and VOR exercises to decrease symptoms and improve balance by 06/30/2020. 04/06/2020: Given incomplete work-up of Luiza Jarrett, revised current PT plan to remove cardio intervention with PT. She poorly tolerates leg strengthening d/t fatigue and focus is on postural and relaxation exercises to manage HAs. She is walking more since starting PT. LTG Duration 11 weeks 3 Campus Supervisor Goal (LTG) Pt will present with improved left shoulder flexion, abduction, left hip flexion, left knee flexion and extension and left foot eversion and inversion strength to 5/5 to improve balance by 06/30/2020. 04/06/2020: Deferred testing today d/t triaging needs LTG Duration 11 weeks 2 Campus Supervisor Goal (LTG) Pt will report a 50% improvement in fatigue, dizziness, and headache symptoms to allow return to PLOF by 06/30/2020. 04/06/2020: Pt reports an overall 10% improvement in fatigue, a 5% improvement in dizziness and a 25-30% improvement in HAs since starting PT. Cervical work has been most beneficial. LTG Duration 11 weeks 1 Campus Supervisor Goal (LTG) Pt will perform WNLs on FGA to decrease fall risk and improve balance by 06/30/2020. 04/06/2020: FGA score is 15/30 and reflects high fall risk. She has most trouble with walking tandem, with eyes closed and vertical head turns . LTG Duration 11 weeks Assessment Summary Assessment Initiated Counterstrain today to improve fascial tension and pt responds well and her right retroorbital headache is much better after treatment. Con't manual intervention as appropriate in order to improve tolerance to daily activities by decreasing pain and symptoms. Physical Therapy Plan Frequency and Duration Frequency of Treatment 1x/Week Duration of Treatment 11 weeks Plan of Care Start Date 04/06/20 Plan of Care End Date 06/30/20 Therapeutic Interventions Therapeutic Interventions Balance Training,Canalithic Repositioning,Gait Training, Home Exercise Program,Manual Therapy,Neuromuscular Re- education,Patient/Caregiver Education,Self-Care/Home Management,Sensory Integration ,Soft Tissue Mobilization, Taping,Therapeutic Activities, Therapeutic Exercises, Vestibular Rehabilitation Other Referrals/Consults Referrals/Consults Recommended Functional medicine pharmacist , talk with regular pharmacist or doctor about headache education, any supplement recommendations Next Visit Focus/Plan Next Note Type Treatment Note Next Visit Plan Consider further assessment of cranial nerves, VOR and visual motor. Progress as tolerates. Ongoing leg strengthening, balance as able . Consider ankle strengthening and SLR.
--- NOTE | 2020-04-18 10:38 | PT.OTN ---
Current Diagnoses Unspecified sequelae of cerebral infarction (04/18/20) Physical Therapy Treatment Note PT-OP-A Visit Information Start: 02/01/20 07:24 Freq: Status: Active Protocol: Document 04/18/20 09:47 MB (Rec: 04/18/20 10:31 MB [id number]) Out-Patient Physical Therapy Visit Information Visit Information Visit Type Treatment Note Visit Start Time 09:47 Visit Stop Time 10:30 Total Visit Minutes 43 Visit Number 10 PT-OP-B Current Condition Start: 02/01/20 07:24 Freq: Status: Active Protocol: Document 02/02/20 12:59 MB (Rec: 02/02/20 13:28 MB [id number]) Current Condition History of Current Condition Onset Date 07/16/2019 Current Complaints Fatigue History of Current Condition Pt reports that she did not have any sxs. 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 She does not remember anything except she had a slight ETIENNE. Her mom was there when she woke up. She was originally dxs with post- concussive syndrome. Her sxs were not getting better and she saw a neurologist. She had three MRIs and 3 CT scans and was found to have brain lesions on right side of brain and occluded middle cerebral artery. She got an ECHO and she has a PFO and a THEODORE and was found that the PFO was very small. US B LEs found superficial blood clot right calf. When she sits down, both of her feet turn blue and her right leg swells and gets better when she gets up and walks. Pt reports left leg pain with fatigue. She has symptoms intermittently and are not correlated with anything. It gets worse at night. PMH: back pain, blood clots, dizziness, falls, HAs, memory loss, neck pain, stroke/TIA, post-concussion syndrome, surgery 2013 on ureter, endometriosis Pt reports that she feels unstable on her LLE. The Cymbalta helps with left leg pain. Pt has taken Progesterone 200 mg at night and has been taking for 1 year. She has taken BCP for at least 15 years. She had many bad reactions to several BCPs and went on and off hormones. Pt has a 1 month history of migraines--sensitive to light and sound and she points to pressure on B temples and behind the eyes. Ice packs, pressure and dark room helped. Reports aspirin s/p stroke and propranolol for HTN and migraine. Pt reports dizziness after the fall, current light- headedness, neck pain after the fall that comes and goes. Pt reports short-term memory loss that is getting better. 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 Lumbar puncture and blood tests ruled out MS. She has not had vision changes. Pt has 1-2 days a week. She likes bike rides but it is hard with balance. She has bad ETIENNE on the right side afterwards. Prior Treatments and Tests Multiple tests mentioned above Treatment Goals Patient/Caregiver Goals Symptom management, balance exercises PT-OP-C Subjective Start: 02/01/20 07:24 Freq: Status: Active Protocol: Document 04/18/20 09:47 MB (Rec: 04/18/20 10:31 MB [id number]) OP-PT Subjective Patient Comments Patient Comments My headaches have still moved into my eyes. I am more nauseated. The Counterstrain was really helpful and my head and neck feel light. I have lost my appetite d/t nausea. My sensory system is off. I keep smelling buring wire. I have burning sensations in my left calf. These both come and go. PT-OP-D Balance Start: 02/01/20 07:24 Freq: Status: Active Protocol: Document 02/02/20 12:59 MB (Rec: 02/02/20 14:06 MB [id number]) Balance Tests Other Other Balance Tests Performed Romberg standing with EO, LOB to the left after 5 sec requiring PT asst to prevent fall and so further balance testing deferred today PT-OP-M Strength Start: 02/01/20 07:24 Freq: Status: Active Protocol: Document 02/02/20 12:59 MB (Rec: 02/02/20 14:12 MB [id number]) Shoulder Strength Shoulder Manual Muscle Testing Left Flexion 4 Good Abduction (C5) 4 Good Right Flexion 5 Normal Extension 5 Normal Abduction (C5) 5 Normal Elbow/Forearm Strength Elbow and Forearm Manual Muscle Testing Left Flexion (C6) 4 Good Extension (C7) 4 Good Comments Further forearm, wrist, implementation advisor strengthening deferred to OT Right Flexion (C6) 5 Normal Extension (C7) 5 Normal Comments Further forearm, wrist, implementation advisor strengthening deferred to OT Hip Strength Hip Manual Muscle Testing Left Flexion (L2) 4 Good Right Flexion (L2) 5 Normal Knee Strength Knee Manual Muscle Testing Left Flexion (S2) 4 Good Extension (L3) 4 Good Right Flexion (S2) 5 Normal Extension (L3) 5 Normal Ankle/Foot Strength Ankle and Foot Manual Muscle Testing Left Dorsiflexion (L4) 4 Good Inversion 3 Fair Eversion (S1) 3 Fair Right Dorsiflexion (L4) 5 Normal Inversion 5 Normal Eversion (S1) 5 Normal Toe Strength Toe Manual Muscle Testing Left Great Toe Flexion 3+ Fair+ Right Great Toe Extension 5 Normal PT-OP-Q Treatments Start: 02/01/20 07:24 Freq: Status: Active Protocol: Document 04/18/20 09:47 MB (Rec: 04/18/20 10:31 MB [id number]) Manual Therapy Treatment Other Other Manual Treatments Pt agress to Counterstrain to assess and treat fascial tension. Pt initially has tension in the following systems: visceral, greater on the right, DPRs, greater on the left, left dura, B (right greater than left) spinal vein extension and mychain eyes. Treated the following stacks: ICV-V, DJ-V (pt with improved mastoid mobility after treatment), spinal vein extension thoracic and cervical areas (may need to be addressed again in future treatments), suboccipital release. PT-OP-T Assessment and Plan Start: 02/01/20 07:24 Freq: Status: Active Protocol: Document 04/18/20 09:47 MB (Rec: 04/18/20 10:31 MB [id number]) Physical Therapy Assessment Rehab Potential Rehabilitation Potential Fair Evaluation Complexity Number of Personal Factors/Comorbidities 3 or More Number of Body Systems Impaired 3 Clinical Presentation at Evaluation Evolving Impairments Impairments Activity Tolerance,Balance, Coordination,Functional Activities,Functional Mobility ,Gait,Pain,Posture,Strength, Vestibular Other Impairments Body systems affected include: neurological, proprioceptive, cardiac, neuromuscular Other Concerns Fall Risk Yes Goals 4 Prison Goal (LTG) Pt will perform progressive HEP with I including postural, flexibility, balance, LE strengthening, breathing, and VOR exercises to decrease symptoms and improve balance by 06/30/2020. 04/06/2020: Given incomplete work-up of [facility], revised current PT plan to remove cardio intervention with PT. She poorly tolerates leg strengthening d/t fatigue and focus is on postural and relaxation exercises to manage HAs. She is walking more since starting PT. LTG Duration 11 weeks 3 Prison Goal (LTG) Pt will present with improved left shoulder flexion, abduction, left hip flexion, left knee flexion and extension and left foot eversion and inversion strength to 5/5 to improve balance by 06/30/2020. 04/06/2020: Deferred testing today d/t triaging needs LTG Duration 11 weeks 2 Prison Goal (LTG) Pt will report a 50% improvement in fatigue, dizziness, and headache symptoms to allow return to PLOF by 06/30/2020. 04/06/2020: Pt reports an overall 10% improvement in fatigue, a 5% improvement in dizziness and a 25-30% improvement in HAs since starting PT. Cervical work has been most beneficial. LTG Duration 11 weeks 1 Prison Goal (LTG) Pt will perform WNLs on FGA to decrease fall risk and improve balance by 06/30/2020. 04/06/2020: FGA score is 15/30 and reflects high fall risk. She has most trouble with walking tandem, with eyes closed and vertical head turns . LTG Duration 11 weeks Assessment Summary Assessment Positive responses to Counterstrain and so initiated again today for fascial tension and pt con't with fascial tension in many body systems. Improved eye ball headache after treatment, rated 8/10 before treatment and 2/10 after treatment. Con' t per plan, function and quality of life most important as she is awaiting work-up from [facility]. Physical Therapy Plan Frequency and Duration Frequency of Treatment 1x/Week Duration of Treatment 11 weeks Plan of Care Start Date 04/06/20 Plan of Care End Date 06/30/20 Therapeutic Interventions Therapeutic Interventions Balance Training,Canalithic Repositioning,Gait Training, Home Exercise Program,Manual Therapy,Neuromuscular Re- education,Patient/Caregiver Education,Self-Care/Home Management,Sensory Integration ,Soft Tissue Mobilization, Taping,Therapeutic Activities, Therapeutic Exercises, Vestibular Rehabilitation Other Referrals/Consults Referrals/Consults Recommended Functional medicine pharmacist , talk with regular pharmacist or doctor about headache education, any supplement recommendations Next Visit Focus/Plan Next Note Type Treatment Note Next Visit Plan Con't manual work for quality of life changes. Consider further assessment of cranial nerves, VOR and visual motor. Progress as tolerates. Ongoing leg strengthening, balance as able. Consider ankle strengthening and SLR.
--- NOTE | 2020-04-27 10:32 | PT.OTN ---
Current Diagnoses Unspecified sequelae of cerebral infarction (04/27/20) Physical Therapy Treatment Note PT-OP-A Visit Information Start: 02/01/20 07:24 Freq: Status: Active Protocol: Document 04/27/20 09:44 MB (Rec: 04/27/20 10:31 MB [id number]) Out-Patient Physical Therapy Visit Information Visit Information Visit Type Treatment Note Visit Start Time 09:44 Visit Stop Time 10:29 Total Visit Minutes 45 Visit Number 11 PT-OP-B Current Condition Start: 02/01/20 07:24 Freq: Status: Active Protocol: Document 02/02/20 12:59 MB (Rec: 02/02/20 13:28 MB [id number]) Current Condition History of Current Condition Onset Date 07/16/2019 Current Complaints Fatigue History of Current Condition Pt reports that she did not have any sxs. 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 She does not remember anything except she had a slight ETIENNE. Her mom was there when she woke up. She was originally dxs with post- concussive syndrome. Her sxs were not getting better and she saw a neurologist. She had three MRIs and 3 CT scans and was found to have brain lesions on right side of brain and occluded middle cerebral artery. She got an ECHO and she has a PFO and a THEODORE and was found that the PFO was very small. US B LEs found superficial blood clot right calf. When she sits down, both of her feet turn blue and her right leg swells and gets better when she gets up and walks. Pt reports left leg pain with fatigue. She has symptoms intermittently and are not correlated with anything. It gets worse at night. PMH: back pain, blood clots, dizziness, falls, HAs, memory loss, neck pain, stroke/TIA, post-concussion syndrome, surgery 2013 on ureter, endometriosis Pt reports that she feels unstable on her LLE. The Cymbalta helps with left leg pain. Pt has taken Progesterone 200 mg at night and has been taking for 1 year. She has taken BCP for at least 15 years. She had many bad reactions to several BCPs and went on and off hormones. Pt has a 1 month history of migraines--sensitive to light and sound and she points to pressure on B temples and behind the eyes. Ice packs, pressure and dark room helped. Reports aspirin s/p stroke and propranolol for HTN and migraine. Pt reports dizziness after the fall, current light- headedness, neck pain after the fall that comes and goes. Pt reports short-term memory loss that is getting better. 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 Lumbar puncture and blood tests ruled out MS. She has not had vision changes. Pt has 1-2 days a week. She likes bike rides but it is hard with balance. She has bad ETIENNE on the right side afterwards. Prior Treatments and Tests Multiple tests mentioned above Treatment Goals Patient/Caregiver Goals Symptom management, balance exercises PT-OP-C Subjective Start: 02/01/20 07:24 Freq: Status: Active Protocol: Document 04/27/20 09:44 MB (Rec: 04/27/20 10:31 MB [id number]) OP-PT Subjective Patient Comments Patient Comments I'm doing okay so far this morning. Pt states that she was able to play hide and seek with kids after last PT treatment. She states that she got in touch with her doctor at [facility] and told doctor about bad retro-orbital and left temporal headaches that are worse at night. The doctor said that she should have an angiogram that would go through femoral artery. She is also going to have an EEG to rule out seizures 05/09/2020 d /t metallic smell of burning wire. She has not yet heard from [facility] at [place]. PT-OP-D Balance Start: 02/01/20 07:24 Freq: Status: Active Protocol: Document 02/02/20 12:59 MB (Rec: 02/02/20 14:06 MB [id number]) Balance Tests Other Other Balance Tests Performed Romberg standing with EO, LOB to the left after 5 sec requiring PT asst to prevent fall and so further balance testing deferred today PT-OP-M Strength Start: 02/01/20 07:24 Freq: Status: Active Protocol: Document 02/02/20 12:59 MB (Rec: 02/02/20 14:12 MB [id number]) Shoulder Strength Shoulder Manual Muscle Testing Left Flexion 4 Good Abduction (C5) 4 Good Right Flexion 5 Normal Extension 5 Normal Abduction (C5) 5 Normal Elbow/Forearm Strength Elbow and Forearm Manual Muscle Testing Left Flexion (C6) 4 Good Extension (C7) 4 Good Comments Further forearm, wrist, tobacco wrapping machine tender strengthening deferred to OT Right Flexion (C6) 5 Normal Extension (C7) 5 Normal Comments Further forearm, wrist, tobacco wrapping machine tender strengthening deferred to OT Hip Strength Hip Manual Muscle Testing Left Flexion (L2) 4 Good Right Flexion (L2) 5 Normal Knee Strength Knee Manual Muscle Testing Left Flexion (S2) 4 Good Extension (L3) 4 Good Right Flexion (S2) 5 Normal Extension (L3) 5 Normal Ankle/Foot Strength Ankle and Foot Manual Muscle Testing Left Dorsiflexion (L4) 4 Good Inversion 3 Fair Eversion (S1) 3 Fair Right Dorsiflexion (L4) 5 Normal Inversion 5 Normal Eversion (S1) 5 Normal Toe Strength Toe Manual Muscle Testing Left Great Toe Flexion 3+ Fair+ Right Great Toe Extension 5 Normal PT-OP-Q Treatments Start: 02/01/20 07:24 Freq: Status: Active Protocol: Document 04/27/20 09:44 MB (Rec: 04/27/20 10:31 MB [id number]) Manual Therapy Treatment Other Other Manual Treatments Pt agrees to Counterstrain to assess and treat fascial tension and she presents with greatest fascial tension in B standard visceral and mesentary scans as well as bronchi scan. PT treats the following stacks: CECL chain, starting left side PT-OP-T Assessment and Plan Start: 02/01/20 07:24 Freq: Status: Active Protocol: Document 04/27/20 09:44 MB (Rec: 04/27/20 10:31 MB [id number]) Physical Therapy Assessment Rehab Potential Rehabilitation Potential Fair Evaluation Complexity Number of Personal Factors/Comorbidities 3 or More Number of Body Systems Impaired 3 Clinical Presentation at Evaluation Evolving Impairments Impairments Activity Tolerance,Balance, Coordination,Functional Activities,Functional Mobility ,Gait,Pain,Posture,Strength, Vestibular Other Impairments Body systems affected include: neurological, proprioceptive, cardiac, neuromuscular Other Concerns Fall Risk Yes Goals 4 Nursing Home Goal (LTG) Pt will perform progressive HEP with I including postural, flexibility, balance, LE strengthening, breathing, and VOR exercises to decrease symptoms and improve balance by 06/30/2020. 04/06/2020: Given incomplete work-up of Luiza Jarrett, revised current PT plan to remove cardio intervention with PT. She poorly tolerates leg strengthening d/t fatigue and focus is on postural and relaxation exercises to manage HAs. She is walking more since starting PT. LTG Duration 11 weeks 3 Reference Investigator Goal (LTG) Pt will present with improved left shoulder flexion, abduction, left hip flexion, left knee flexion and extension and left foot eversion and inversion strength to 5/5 to improve balance by 06/30/2020. 04/06/2020: Deferred testing today d/t triaging needs LTG Duration 11 weeks 2 Nursing Home Goal (LTG) Pt will report a 50% improvement in fatigue, dizziness, and headache symptoms to allow return to PLOF by 06/30/2020. 04/06/2020: Pt reports an overall 10% improvement in fatigue, a 5% improvement in dizziness and a 25-30% improvement in HAs since starting PT. Cervical work has been most beneficial. LTG Duration 11 weeks 1 Nursing Home Goal (LTG) Pt will perform WNLs on FGA to decrease fall risk and improve balance by 06/30/2020. 04/06/2020: FGA score is 15/30 and reflects high fall risk. She has most trouble with walking tandem, with eyes closed and vertical head turns . LTG Duration 11 weeks Assessment Summary Assessment Pt to increase PT frequency in setting of being able to defer OT at this time and will use the OT visits for PT given improvements in quality of life and returning to more normal ADLs in setting of pending ongoing work-up. PT recommends pt talk with neurologist about any recommended supplements to help with headaches as recommended by concussion specialists. PT has been helpful to reduce headaches and allow pt to do more normal quality of life activities in a 30 y/o female. Physical Therapy Plan Frequency and Duration Frequency of Treatment 1x/Week Duration of Treatment 11 weeks Plan of Care Start Date 04/06/20 Plan of Care End Date 06/30/20 Therapeutic Interventions Therapeutic Interventions Balance Training,Canalithic Repositioning,Gait Training, Home Exercise Program,Manual Therapy,Neuromuscular Re- education,Patient/Caregiver Education,Self-Care/Home Management,Sensory Integration ,Soft Tissue Mobilization, Taping,Therapeutic Activities, Therapeutic Exercises, Vestibular Rehabilitation Other Referrals/Consults Referrals/Consults Recommended Functional medicine pharmacist , talk with regular pharmacist or doctor about headache education, any supplement recommendations Next Visit Focus/Plan Next Note Type Treatment Note Next Visit Plan As previous: Con't manual work for quality of life changes. Consider further assessment of cranial nerves, VOR and visual motor. Progress as tolerates. Ongoing leg strengthening, balance as able . Consider ankle strengthening and SLR.
--- NOTE | 2020-04-29 09:25 | PT.OTN ---
Current Diagnoses Unspecified sequelae of cerebral infarction (04/29/20) Physical Therapy Treatment Note PT-OP-A Visit Information Start: 02/01/20 07:24 Freq: Status: Active Protocol: Document 04/29/20 08:12 MB (Rec: 04/29/20 09:25 MB [id number]) Out-Patient Physical Therapy Visit Information Visit Information Visit Type Treatment Note Visit Start Time 08:23 Visit Stop Time 09:23 Total Visit Minutes 60 Visit Number 12 PT-OP-B Current Condition Start: 02/01/20 07:24 Freq: Status: Active Protocol: Document 02/02/20 12:59 MB (Rec: 02/02/20 13:28 MB [id number]) Current Condition History of Current Condition Onset Date 07/16/2019 Current Complaints Fatigue History of Current Condition Pt reports that she did not have any sxs. 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 She does not remember anything except she had a slight ETIENNE. Her mom was there when she woke up. She was originally dxs with post- concussive syndrome. Her sxs were not getting better and she saw a neurologist. She had three MRIs and 3 CT scans and was found to have brain lesions on right side of brain and occluded middle cerebral artery. She got an ECHO and she has a PFO and a THEODORE and was found that the PFO was very small. US B LEs found superficial blood clot right calf. When she sits down, both of her feet turn blue and her right leg swells and gets better when she gets up and walks. Pt reports left leg pain with fatigue. She has symptoms intermittently and are not correlated with anything. It gets worse at night. PMH: back pain, blood clots, dizziness, falls, HAs, memory loss, neck pain, stroke/TIA, post-concussion syndrome, surgery 2013 on ureter, endometriosis Pt reports that she feels unstable on her LLE. The Cymbalta helps with left leg pain. Pt has taken Progesterone 200 mg at night and has been taking for 1 year. She has taken BCP for at least 15 years. She had many bad reactions to several BCPs and went on and off hormones. Pt has a 1 month history of migraines--sensitive to light and sound and she points to pressure on B temples and behind the eyes. Ice packs, pressure and dark room helped. Reports aspirin s/p stroke and propranolol for HTN and migraine. Pt reports dizziness after the fall, current light- headedness, neck pain after the fall that comes and goes. Pt reports short-term memory loss that is getting better. 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 Lumbar puncture and blood tests ruled out MS. She has not had vision changes. Pt has 1-2 days a week. She likes bike rides but it is hard with balance. She has bad ETIENNE on the right side afterwards. Prior Treatments and Tests Multiple tests mentioned above Treatment Goals Patient/Caregiver Goals Symptom management, balance exercises PT-OP-C Subjective Start: 02/01/20 07:24 Freq: Status: Active Protocol: Document 04/29/20 08:12 MB (Rec: 04/29/20 09:25 MB [id number]) OP-PT Subjective Patient Comments Patient Comments Pt reports that she felt better after Counterstrain and she did have a BM. She had been constipated and her abdomen was firm. She sees neurologist over Telehealth today. Her retro-orbital ETIENNE was better after Counterstrain last treatment date. PT-OP-D Balance Start: 02/01/20 07:24 Freq: Status: Active Protocol: Document 02/02/20 12:59 MB (Rec: 02/02/20 14:06 MB [id number]) Balance Tests Other Other Balance Tests Performed Romberg standing with EO, LOB to the left after 5 sec requiring PT asst to prevent fall and so further balance testing deferred today PT-OP-M Strength Start: 02/01/20 07:24 Freq: Status: Active Protocol: Document 02/02/20 12:59 MB (Rec: 02/02/20 14:12 MB [id number]) Shoulder Strength Shoulder Manual Muscle Testing Left Flexion 4 Good Abduction (C5) 4 Good Right Flexion 5 Normal Extension 5 Normal Abduction (C5) 5 Normal Elbow/Forearm Strength Elbow and Forearm Manual Muscle Testing Left Flexion (C6) 4 Good Extension (C7) 4 Good Comments Further forearm, wrist, park interpretive specialist strengthening deferred to OT Right Flexion (C6) 5 Normal Extension (C7) 5 Normal Comments Further forearm, wrist, park interpretive specialist strengthening deferred to OT Hip Strength Hip Manual Muscle Testing Left Flexion (L2) 4 Good Right Flexion (L2) 5 Normal Knee Strength Knee Manual Muscle Testing Left Flexion (S2) 4 Good Extension (L3) 4 Good Right Flexion (S2) 5 Normal Extension (L3) 5 Normal Ankle/Foot Strength Ankle and Foot Manual Muscle Testing Left Dorsiflexion (L4) 4 Good Inversion 3 Fair Eversion (S1) 3 Fair Right Dorsiflexion (L4) 5 Normal Inversion 5 Normal Eversion (S1) 5 Normal Toe Strength Toe Manual Muscle Testing Left Great Toe Flexion 3+ Fair+ Right Great Toe Extension 5 Normal PT-OP-Q Treatments Start: 02/01/20 07:24 Freq: Status: Active Protocol: Document 04/29/20 08:12 MB (Rec: 04/29/20 09:25 MB [id number]) Manual Therapy Treatment Other Other Manual Treatments Pt agrees to Counterstrain to assess and treat fascial tension and initially she presents with greatest fascial tension in left standard visceral row, right facial, right dura, right epidural lymphatic venous, left cervical disc. PT treats the following stacks per scan: right TENT, left MFALX, facial nerve mandibular on the right , mesentery right, proximal, anterior right lower visceral. PT does not treat over the eyes. PT-OP-T Assessment and Plan Start: 02/01/20 07:24 Freq: Status: Active Protocol: Document 04/29/20 08:12 MB (Rec: 04/29/20 09:25 MB [id number]) Physical Therapy Assessment Rehab Potential Rehabilitation Potential Fair Evaluation Complexity Number of Personal Factors/Comorbidities 3 or More Number of Body Systems Impaired 3 Clinical Presentation at Evaluation Evolving Impairments Impairments Activity Tolerance,Balance, Coordination,Functional Activities,Functional Mobility ,Gait,Pain,Posture,Strength, Vestibular Other Impairments Body systems affected include: neurological, proprioceptive, cardiac, neuromuscular Other Concerns Fall Risk Yes Goals 4 Residential Goal (LTG) Pt will perform progressive HEP with I including postural, flexibility, balance, LE strengthening, breathing, and VOR exercises to decrease symptoms and improve balance by 06/30/2020. 04/06/2020: Given incomplete work-up of Luiza Jarrett, revised current PT plan to remove cardio intervention with PT. She poorly tolerates leg strengthening d/t fatigue and focus is on postural and relaxation exercises to manage HAs. She is walking more since starting PT. LTG Duration 11 weeks 3 Auto Former Machine Operator Goal (LTG) Pt will present with improved left shoulder flexion, abduction, left hip flexion, left knee flexion and extension and left foot eversion and inversion strength to 5/5 to improve balance by 06/30/2020. 04/06/2020: Deferred testing today d/t triaging needs LTG Duration 11 weeks 2 Residential Goal (LTG) Pt will report a 50% improvement in fatigue, dizziness, and headache symptoms to allow return to PLOF by 06/30/2020. 04/06/2020: Pt reports an overall 10% improvement in fatigue, a 5% improvement in dizziness and a 25-30% improvement in HAs since starting PT. Cervical work has been most beneficial. LTG Duration 11 weeks 1 Auto Former Machine Operator Goal (LTG) Pt will perform WNLs on FGA to decrease fall risk and improve balance by 06/30/2020. 04/06/2020: FGA score is 15/30 and reflects high fall risk. She has most trouble with walking tandem, with eyes closed and vertical head turns . LTG Duration 11 weeks Assessment Summary Assessment Pt responds well to Counterstrain both treatments this week with good visceral response (BM after constipation) and improved ETIENNE. Similar to last treatment comment, pt to increase PT frequency in setting of being able to defer OT at this time and will use the OT visits for PT given improvements in quality of life and returning to more normal ADLs in setting of pending ongoing work-up. Physical Therapy Plan Frequency and Duration Frequency of Treatment 1x/Week Duration of Treatment 11 weeks Plan of Care Start Date 04/06/20 Plan of Care End Date 06/30/20 Therapeutic Interventions Therapeutic Interventions Balance Training,Canalithic Repositioning,Gait Training, Home Exercise Program,Manual Therapy,Neuromuscular Re- education,Patient/Caregiver Education,Self-Care/Home Management,Sensory Integration ,Soft Tissue Mobilization, Taping,Therapeutic Activities, Therapeutic Exercises, Vestibular Rehabilitation Other Referrals/Consults Referrals/Consults Recommended Functional medicine pharmacist , talk with regular pharmacist or doctor about headache education, any supplement recommendations Next Visit Focus/Plan Next Note Type Treatment Note Next Visit Plan Con't manual work for quality of life changes. Consider further assessment of cranial nerves, VOR and visual motor. Progress as tolerates. Ongoing leg strengthening, balance as able. Consider ankle strengthening and SLR.
--- NOTE | 2020-05-02 14:12 | PT.OTN ---
Current Diagnoses Unspecified sequelae of cerebral infarction (05/02/20) Physical Therapy Treatment Note PT-OP-A Visit Information Start: 02/01/20 07:24 Freq: Status: Active Protocol: Document 05/02/20 13:00 MB (Rec: 05/02/20 14:11 MB [id number]) Out-Patient Physical Therapy Visit Information Visit Information Visit Type Treatment Note Visit Start Time 13:00 Visit Stop Time 14:00 Total Visit Minutes 60 Visit Number 13 PT-OP-B Current Condition Start: 02/01/20 07:24 Freq: Status: Active Protocol: Document 02/02/20 12:59 MB (Rec: 02/02/20 13:28 MB [id number]) Current Condition History of Current Condition Onset Date 07/16/2019 Current Complaints Fatigue History of Current Condition Pt reports that she did not have any sxs. 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 She does not remember anything except she had a slight ETIENNE. Her mom was there when she woke up. She was originally dxs with post- concussive syndrome. Her sxs were not getting better and she saw a neurologist. She had three MRIs and 3 CT scans and was found to have brain lesions on right side of brain and occluded middle cerebral artery. She got an ECHO and she has a PFO and a THEODORE and was found that the PFO was very small. US B LEs found superficial blood clot right calf. When she sits down, both of her feet turn blue and her right leg swells and gets better when she gets up and walks. Pt reports left leg pain with fatigue. She has symptoms intermittently and are not correlated with anything. It gets worse at night. PMH: back pain, blood clots, dizziness, falls, HAs, memory loss, neck pain, stroke/TIA, post-concussion syndrome, surgery 2013 on ureter, endometriosis Pt reports that she feels unstable on her LLE. The Cymbalta helps with left leg pain. Pt has taken Progesterone 200 mg at night and has been taking for 1 year. She has taken BCP for at least 15 years. She had many bad reactions to several BCPs and went on and off hormones. Pt has a 1 month history of migraines--sensitive to light and sound and she points to pressure on B temples and behind the eyes. Ice packs, pressure and dark room helped. Reports aspirin s/p stroke and propranolol for HTN and migraine. Pt reports dizziness after the fall, current light- headedness, neck pain after the fall that comes and goes. Pt reports short-term memory loss that is getting better. 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 Lumbar puncture and blood tests ruled out MS. She has not had vision changes. Pt has 1-2 days a week. She likes bike rides but it is hard with balance. She has bad ETIENNE on the right side afterwards. Prior Treatments and Tests Multiple tests mentioned above Treatment Goals Patient/Caregiver Goals Symptom management, balance exercises PT-OP-C Subjective Start: 02/01/20 07:24 Freq: Status: Active Protocol: Document 05/02/20 13:00 MB (Rec: 05/02/20 14:11 MB [id number]) OP-PT Subjective Patient Comments Patient Comments Pt states that she returned to her neurologist. She is going to get a CT perfusion, spinal tap to check for viruses and an EEG. She was told that her problem was one sided, on the right, and that Jarrett Jarrett is usually B. She was cleared to start magnesium. She has not yet heard back from the [facility] [place] [facility]. Pt states that she had a good BM and stomach gurgling after last Counterstrain treatment and she considers this a win. Her appetite has been a little better over the last week. PT-OP-D Balance Start: 02/01/20 07:24 Freq: Status: Active Protocol: Document 02/02/20 12:59 MB (Rec: 02/02/20 14:06 MB [id number]) Balance Tests Other Other Balance Tests Performed Romberg standing with EO, LOB to the left after 5 sec requiring PT asst to prevent fall and so further balance testing deferred today PT-OP-M Strength Start: 02/01/20 07:24 Freq: Status: Active Protocol: Document 02/02/20 12:59 MB (Rec: 02/02/20 14:12 MB [id number]) Shoulder Strength Shoulder Manual Muscle Testing Left Flexion 4 Good Abduction (C5) 4 Good Right Flexion 5 Normal Extension 5 Normal Abduction (C5) 5 Normal Elbow/Forearm Strength Elbow and Forearm Manual Muscle Testing Left Flexion (C6) 4 Good Extension (C7) 4 Good Comments Further forearm, wrist, client support administrator strengthening deferred to OT Right Flexion (C6) 5 Normal Extension (C7) 5 Normal Comments Further forearm, wrist, client support administrator strengthening deferred to OT Hip Strength Hip Manual Muscle Testing Left Flexion (L2) 4 Good Right Flexion (L2) 5 Normal Knee Strength Knee Manual Muscle Testing Left Flexion (S2) 4 Good Extension (L3) 4 Good Right Flexion (S2) 5 Normal Extension (L3) 5 Normal Ankle/Foot Strength Ankle and Foot Manual Muscle Testing Left Dorsiflexion (L4) 4 Good Inversion 3 Fair Eversion (S1) 3 Fair Right Dorsiflexion (L4) 5 Normal Inversion 5 Normal Eversion (S1) 5 Normal Toe Strength Toe Manual Muscle Testing Left Great Toe Flexion 3+ Fair+ Right Great Toe Extension 5 Normal PT-OP-Q Treatments Start: 02/01/20 07:24 Freq: Status: Active Protocol: Document 05/02/20 13:00 MB (Rec: 05/02/20 14:11 MB [id number]) Therapeutic Exercises Supine Exercises Diaphragm breathing Comments 2 reps today hook lying and pt to con't at home Self-MWM B SCM with trigger point pressure and active rotation Comments Re-ed today and pt performs with cues EFT Comments Reviewed again today, pt has not been performing, ed to perform/theory behi Progressive Muscle Relaxation exercises Comments Reviewed today, pt has handout and pt performs quads Buteyko breathing blocked nostril Comments HR 69 BPM, sats 96-98% before; left nostril 48 sec hold, sats 100% after B[place]ko breathing Comments Re-ed today and pt to perform at home Sitting Exercises Back call out clerk upper traps and levator with active cervical SB and rotation Comments Pt is performing at home, hold call out clerk and gently stretching Forward and back (flexion and extension isometrics) Comments Performed 2 reps today each Standing Exercises Wall slide with ball between knees Comments Performed 1 rep and to con't at home PT-OP-T Assessment and Plan Start: 02/01/20 07:24 Freq: Status: Active Protocol: Document 05/02/20 13:00 MB (Rec: 05/02/20 14:11 MB [id number]) Physical Therapy Assessment Rehab Potential Rehabilitation Potential Fair Evaluation Complexity Number of Personal Factors/Comorbidities 3 or More Number of Body Systems Impaired 3 Clinical Presentation at Evaluation Evolving Impairments Impairments Activity Tolerance,Balance, Coordination,Functional Activities,Functional Mobility ,Gait,Pain,Posture,Strength, Vestibular Other Impairments Body systems affected include: neurological, proprioceptive, cardiac, neuromuscular Other Concerns Fall Risk Yes Goals 4 Certified Composites Technician Goal (LTG) Pt will perform progressive HEP with I including postural, flexibility, balance, LE strengthening, breathing, and VOR exercises to decrease symptoms and improve balance by 06/30/2020. 04/06/2020: Given incomplete work-up of Luiza Jarrett, revised current PT plan to remove cardio intervention with PT. She poorly tolerates leg strengthening d/t fatigue and focus is on postural and relaxation exercises to manage HAs. She is walking more since starting PT. LTG Duration 11 weeks 3 Certified Composites Technician Goal (LTG) Pt will present with improved left shoulder flexion, abduction, left hip flexion, left knee flexion and extension and left foot eversion and inversion strength to 5/5 to improve balance by 06/30/2020. 04/06/2020: Deferred testing today d/t triaging needs LTG Duration 11 weeks 2 Retirement Goal (LTG) Pt will report a 50% improvement in fatigue, dizziness, and headache symptoms to allow return to PLOF by 06/30/2020. 04/06/2020: Pt reports an overall 10% improvement in fatigue, a 5% improvement in dizziness and a 25-30% improvement in HAs since starting PT. Cervical work has been most beneficial. LTG Duration 11 weeks 1 Retirement Goal (LTG) Pt will perform WNLs on FGA to decrease fall risk and improve balance by 06/30/2020. 04/06/2020: FGA score is 15/30 and reflects high fall risk. She has most trouble with walking tandem, with eyes closed and vertical head turns . LTG Duration 11 weeks Assessment Summary Assessment Reviewed and pt practices with cues all exercises today and pt to con't at home. BP and HR in LUE: supine 112/78, 68; standing 131/87, 69. Extensive time today for exercises for training, proper form and to answer questions and explain theory and purpose. Physical Therapy Plan Frequency and Duration Frequency of Treatment 1x/Week Duration of Treatment 11 weeks Plan of Care Start Date 04/06/20 Plan of Care End Date 06/30/20 Therapeutic Interventions Therapeutic Interventions Balance Training,Canalithic Repositioning,Gait Training, Home Exercise Program,Manual Therapy,Neuromuscular Re- education,Patient/Caregiver Education,Self-Care/Home Management,Sensory Integration ,Soft Tissue Mobilization, Taping,Therapeutic Activities, Therapeutic Exercises, Vestibular Rehabilitation Other Referrals/Consults Referrals/Consults Recommended Functional medicine pharmacist , talk with regular pharmacist or doctor about headache education, any supplement recommendations Next Visit Focus/Plan Next Note Type Treatment Note Next Visit Plan Con't manual work for quality of life changes. Progress thoracic mobility exercises, consider postural strengthening. Ongoing leg strengthening, balance as able . Consider ankle strengthening and SLR.
--- NOTE | 2020-05-11 13:48 | PT.OTN ---
Current Diagnoses Unspecified sequelae of cerebral infarction (05/11/20) Physical Therapy Treatment Note PT-OP-A Visit Information Start: 02/01/20 07:24 Freq: Status: Active Protocol: Document 05/11/20 13:01 MB (Rec: 05/11/20 13:46 MB [id number]) Out-Patient Physical Therapy Visit Information Visit Information Visit Type Treatment Note Visit Start Time 13:01 Visit Stop Time 13:45 Total Visit Minutes 44 Visit Number 14 PT-OP-B Current Condition Start: 02/01/20 07:24 Freq: Status: Active Protocol: Document 02/02/20 12:59 MB (Rec: 02/02/20 13:28 MB [id number]) Current Condition History of Current Condition Onset Date 07/16/2019 Current Complaints Fatigue History of Current Condition Pt reports that she did not have any sxs. 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 She does not remember anything except she had a slight ETIENNE. Her mom was there when she woke up. She was originally dxs with post- concussive syndrome. Her sxs were not getting better and she saw a neurologist. She had three MRIs and 3 CT scans and was found to have brain lesions on right side of brain and occluded middle cerebral artery. She got an ECHO and she has a PFO and a THEODORE and was found that the PFO was very small. US B LEs found superficial blood clot right calf. When she sits down, both of her feet turn blue and her right leg swells and gets better when she gets up and walks. Pt reports left leg pain with fatigue. She has symptoms intermittently and are not correlated with anything. It gets worse at night. PMH: back pain, blood clots, dizziness, falls, HAs, memory loss, neck pain, stroke/TIA, post-concussion syndrome, surgery 2013 on ureter, endometriosis Pt reports that she feels unstable on her LLE. The Cymbalta helps with left leg pain. Pt has taken Progesterone 200 mg at night and has been taking for 1 year. She has taken BCP for at least 15 years. She had many bad reactions to several BCPs and went on and off hormones. Pt has a 1 month history of migraines--sensitive to light and sound and she points to pressure on B temples and behind the eyes. Ice packs, pressure and dark room helped. Reports aspirin s/p stroke and propranolol for HTN and migraine. Pt reports dizziness after the fall, current light- headedness, neck pain after the fall that comes and goes. Pt reports short-term memory loss that is getting better. 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 Lumbar puncture and blood tests ruled out MS. She has not had vision changes. Pt has 1-2 days a week. She likes bike rides but it is hard with balance. She has bad ETIENNE on the right side afterwards. Prior Treatments and Tests Multiple tests mentioned above Treatment Goals Patient/Caregiver Goals Symptom management, balance exercises PT-OP-C Subjective Start: 02/01/20 07:24 Freq: Status: Active Protocol: Document 05/11/20 13:01 MB (Rec: 05/11/20 13:46 MB [id number]) OP-PT Subjective Patient Comments Patient Comments Pt got a call from the [facility] in [place]. She was told that she is a candidate for surgery. She will be getting further testing and then go for surgery. The surgery will be for her right MCA and likely a bypass. Pt reports some throbbing where her neck attaches to her head. PT-OP-D Balance Start: 02/01/20 07:24 Freq: Status: Active Protocol: Document 02/02/20 12:59 MB (Rec: 02/02/20 14:06 MB [id number]) Balance Tests Other Other Balance Tests Performed Romberg standing with EO, LOB to the left after 5 sec requiring PT asst to prevent fall and so further balance testing deferred today PT-OP-M Strength Start: 02/01/20 07:24 Freq: Status: Active Protocol: Document 02/02/20 12:59 MB (Rec: 02/02/20 14:12 MB [id number]) Shoulder Strength Shoulder Manual Muscle Testing Left Flexion 4 Good Abduction (C5) 4 Good Right Flexion 5 Normal Extension 5 Normal Abduction (C5) 5 Normal Elbow/Forearm Strength Elbow and Forearm Manual Muscle Testing Left Flexion (C6) 4 Good Extension (C7) 4 Good Comments Further forearm, wrist, big data analytics lead strengthening deferred to OT Right Flexion (C6) 5 Normal Extension (C7) 5 Normal Comments Further forearm, wrist, big data analytics lead strengthening deferred to OT Hip Strength Hip Manual Muscle Testing Left Flexion (L2) 4 Good Right Flexion (L2) 5 Normal Knee Strength Knee Manual Muscle Testing Left Flexion (S2) 4 Good Extension (L3) 4 Good Right Flexion (S2) 5 Normal Extension (L3) 5 Normal Ankle/Foot Strength Ankle and Foot Manual Muscle Testing Left Dorsiflexion (L4) 4 Good Inversion 3 Fair Eversion (S1) 3 Fair Right Dorsiflexion (L4) 5 Normal Inversion 5 Normal Eversion (S1) 5 Normal Toe Strength Toe Manual Muscle Testing Left Great Toe Flexion 3+ Fair+ Right Great Toe Extension 5 Normal PT-OP-Q Treatments Start: 02/01/20 07:24 Freq: Status: Active Protocol: Document 05/11/20 13:01 MB (Rec: 05/11/20 13:46 MB [id number]) Manual Therapy Treatment Other Other Manual Treatments Pt hook lying: Pt agrees to Counterstrain to assess and treat fascial tension and she presents with most tension in neural vagus fascial system and PT treats stacks this date . Self-Care/Home Management Treatment Education Other Education PT writes up pt's and PT's questions about surgery and post-op care--she has 9 questions including PFO, what the surgery is, benefits and risks, what kind of candidate she is and post-op recs for speech, OT and PT PT-OP-T Assessment and Plan Start: 02/01/20 07:24 Freq: Status: Active Protocol: Document 05/11/20 13:01 MB (Rec: 05/11/20 13:46 MB [id number]) Physical Therapy Assessment Rehab Potential Rehabilitation Potential Fair Evaluation Complexity Number of Personal Factors/Comorbidities 3 or More Number of Body Systems Impaired 3 Clinical Presentation at Evaluation Evolving Impairments Impairments Activity Tolerance,Balance, Coordination,Functional Activities,Functional Mobility ,Gait,Pain,Posture,Strength, Vestibular Other Impairments Body systems affected include: neurological, proprioceptive, cardiac, neuromuscular Other Concerns Fall Risk Yes Goals 4 Ecdis N Navigation Operator Goal (LTG) Pt will perform progressive HEP with I including postural, flexibility, balance, LE strengthening, breathing, and VOR exercises to decrease symptoms and improve balance by 06/30/2020. 04/06/2020: Given incomplete work-up of Luiza Jarrett, revised current PT plan to remove cardio intervention with PT. She poorly tolerates leg strengthening d/t fatigue and focus is on postural and relaxation exercises to manage HAs. She is walking more since starting PT. LTG Duration 11 weeks 3 Ecdis N Navigation Operator Goal (LTG) Pt will present with improved left shoulder flexion, abduction, left hip flexion, left knee flexion and extension and left foot eversion and inversion strength to 5/5 to improve balance by 06/30/2020. 04/06/2020: Deferred testing today d/t triaging needs LTG Duration 11 weeks 2 Ecdis N Navigation Operator Goal (LTG) Pt will report a 50% improvement in fatigue, dizziness, and headache symptoms to allow return to PLOF by 06/30/2020. 04/06/2020: Pt reports an overall 10% improvement in fatigue, a 5% improvement in dizziness and a 25-30% improvement in HAs since starting PT. Cervical work has been most beneficial. LTG Duration 11 weeks 1 Ecdis N Navigation Operator Goal (LTG) Pt will perform WNLs on FGA to decrease fall risk and improve balance by 06/30/2020. 04/06/2020: FGA score is 15/30 and reflects high fall risk. She has most trouble with walking tandem, with eyes closed and vertical head turns . LTG Duration 11 weeks Assessment Summary Assessment PT and pt spend a lot of time going through questions to ask [facility] about surgery and post-op care. Manual work as well. She has not yet heard about EEG. Con't PT for [facility] care. Physical Therapy Plan Frequency and Duration Frequency of Treatment 1x/Week Duration of Treatment 11 weeks Plan of Care Start Date 04/06/20 Plan of Care End Date 06/30/20 Therapeutic Interventions Therapeutic Interventions Balance Training,Canalithic Repositioning,Gait Training, Home Exercise Program,Manual Therapy,Neuromuscular Re- education,Patient/Caregiver Education,Self-Care/Home Management,Sensory Integration ,Soft Tissue Mobilization, Taping,Therapeutic Activities, Therapeutic Exercises, Vestibular Rehabilitation Other Referrals/Consults Referrals/Consults Recommended Functional medicine pharmacist , talk with regular pharmacist or doctor about headache education, any supplement recommendations Next Visit Focus/Plan Next Note Type Treatment Note Next Visit Plan Con't manual work for quality of life changes. Progress thoracic mobility exercises, consider postural strengthening. Ongoing leg strengthening, balance as able . Consider ankle strengthening and SLR.
--- NOTE | 2020-05-18 14:36 | PT.OTN ---
Current Diagnoses Unspecified sequelae of cerebral infarction (05/18/20) Physical Therapy Treatment Note PT-OP-A Visit Information Start: 02/01/20 07:24 Freq: Status: Active Protocol: Document 05/18/20 13:02 MB (Rec: 05/18/20 13:22 MB [id number]) Out-Patient Physical Therapy Visit Information Visit Information Visit Type Treatment Note Visit Start Time 13:02 Visit Stop Time 14:07 Total Visit Minutes 65 Visit Number 15 PT-OP-B Current Condition Start: 02/01/20 07:24 Freq: Status: Active Protocol: Document 02/02/20 12:59 MB (Rec: 02/02/20 13:28 MB [id number]) Current Condition History of Current Condition Onset Date 07/16/2019 Current Complaints Fatigue History of Current Condition Pt reports that she did not have any sxs. 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 She does not remember anything except she had a slight ETIENNE. Her mom was there when she woke up. She was originally dxs with post- concussive syndrome. Her sxs were not getting better and she saw a neurologist. She had three MRIs and 3 CT scans and was found to have brain lesions on right side of brain and occluded middle cerebral artery. She got an ECHO and she has a PFO and a THEODORE and was found that the PFO was very small. US B LEs found superficial blood clot right calf. When she sits down, both of her feet turn blue and her right leg swells and gets better when she gets up and walks. Pt reports left leg pain with fatigue. She has symptoms intermittently and are not correlated with anything. It gets worse at night. PMH: back pain, blood clots, dizziness, falls, HAs, memory loss, neck pain, stroke/TIA, post-concussion syndrome, surgery 2013 on ureter, endometriosis Pt reports that she feels unstable on her LLE. The Cymbalta helps with left leg pain. Pt has taken Progesterone 200 mg at night and has been taking for 1 year. She has taken BCP for at least 15 years. She had many bad reactions to several BCPs and went on and off hormones. Pt has a 1 month history of migraines--sensitive to light and sound and she points to pressure on B temples and behind the eyes. Ice packs, pressure and dark room helped. Reports aspirin s/p stroke and propranolol for HTN and migraine. Pt reports dizziness after the fall, current light- headedness, neck pain after the fall that comes and goes. Pt reports short-term memory loss that is getting better. 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 Lumbar puncture and blood tests ruled out MS. She has not had vision changes. Pt has 1-2 days a week. She likes bike rides but it is hard with balance. She has bad ETIENNE on the right side afterwards. Prior Treatments and Tests Multiple tests mentioned above Treatment Goals Patient/Caregiver Goals Symptom management, balance exercises PT-OP-C Subjective Start: 02/01/20 07:24 Freq: Status: Active Protocol: Document 05/18/20 13:02 MB (Rec: 05/18/20 13:22 MB [id number]) OP-PT Subjective Patient Comments Patient Comments Pt states that her EEG was negative, that she had a lumbar puncture yesterday to check for chicken pox virus, that the neurologist gave her Nemenda 10 mg for headaches and that she has a consultation with another neurosurgeon on 06/01/2020 for a second opinion about what [place] is saying. Pt's mother arrives to PT with pt to observe Counterstrain and ask questions and PT addresses today. PT-OP-D Balance Start: 02/01/20 07:24 Freq: Status: Active Protocol: Document 02/02/20 12:59 MB (Rec: 02/02/20 14:06 MB [id number]) Balance Tests Other Other Balance Tests Performed Romberg standing with EO, LOB to the left after 5 sec requiring PT asst to prevent fall and so further balance testing deferred today PT-OP-M Strength Start: 02/01/20 07:24 Freq: Status: Active Protocol: Document 02/02/20 12:59 MB (Rec: 02/02/20 14:12 MB [id number]) Shoulder Strength Shoulder Manual Muscle Testing Left Flexion 4 Good Abduction (C5) 4 Good Right Flexion 5 Normal Extension 5 Normal Abduction (C5) 5 Normal Elbow/Forearm Strength Elbow and Forearm Manual Muscle Testing Left Flexion (C6) 4 Good Extension (C7) 4 Good Comments Further forearm, wrist, parish nurse strengthening deferred to OT Right Flexion (C6) 5 Normal Extension (C7) 5 Normal Comments Further forearm, wrist, parish nurse strengthening deferred to OT Hip Strength Hip Manual Muscle Testing Left Flexion (L2) 4 Good Right Flexion (L2) 5 Normal Knee Strength Knee Manual Muscle Testing Left Flexion (S2) 4 Good Extension (L3) 4 Good Right Flexion (S2) 5 Normal Extension (L3) 5 Normal Ankle/Foot Strength Ankle and Foot Manual Muscle Testing Left Dorsiflexion (L4) 4 Good Inversion 3 Fair Eversion (S1) 3 Fair Right Dorsiflexion (L4) 5 Normal Inversion 5 Normal Eversion (S1) 5 Normal Toe Strength Toe Manual Muscle Testing Left Great Toe Flexion 3+ Fair+ Right Great Toe Extension 5 Normal PT-OP-Q Treatments Start: 02/01/20 07:24 Freq: Status: Active Protocol: Document 05/18/20 13:02 MB (Rec: 05/18/20 14:01 MB [id number]) Manual Therapy Treatment Other Other Manual Treatments Pt agrees to Counterstrain to assess and treat fascial tension and she presents with tension in the following fascial systems: anterior somatics UE and LE, spinal vein extension, left visceral, right facial nerve, mesentery visceral. PT treats tighest area first: spinal extension veins, stacks both sides and then rescans and scan is much better. Rescan and treated sinuvertebral cervical. Pt tolerates treatment well. Self-Care/Home Management Treatment Education Other Education PT answers mother's questions about Counterstrain, fascia, PT and pt look at middle cerebral artery and superficial temporal artery anatomy after pt asks about these with regard to surgery she might have superficial temporal artery-middle cerebral artery reconstruction. Mother asks how she can assist pt at home and PT encourage pt about being careful when she gets her puppy (keep puppy on the floor and careful getting up and down, have mom assist with feeding and water), proper resting position with legs up, cervical support with towel roll and pillow, ice on head, head on abdomen, deep breathing. PT-OP-T Assessment and Plan Start: 02/01/20 07:24 Freq: Status: Active Protocol: Document 05/18/20 13:02 MB (Rec: 05/18/20 13:22 MB [id number]) Physical Therapy Assessment Rehab Potential Rehabilitation Potential Fair Evaluation Complexity Number of Personal Factors/Comorbidities 3 or More Number of Body Systems Impaired 3 Clinical Presentation at Evaluation Evolving Impairments Impairments Activity Tolerance,Balance, Coordination,Functional Activities,Functional Mobility ,Gait,Pain,Posture,Strength, Vestibular Other Impairments Body systems affected include: neurological, proprioceptive, cardiac, neuromuscular Other Concerns Fall Risk Yes Goals 4 Intermediate Goal (LTG) Pt will perform progressive HEP with I including postural, flexibility, balance, LE strengthening, breathing, and VOR exercises to decrease symptoms and improve balance by 06/30/2020. 04/06/2020: Given incomplete work-up of Luiza Jarrett, revised current PT plan to remove cardio intervention with PT. She poorly tolerates leg strengthening d/t fatigue and focus is on postural and relaxation exercises to manage HAs. She is walking more since starting PT. LTG Duration 11 weeks 3 Cryptologic Supervisor Goal (LTG) Pt will present with improved left shoulder flexion, abduction, left hip flexion, left knee flexion and extension and left foot eversion and inversion strength to 5/5 to improve balance by 06/30/2020. 04/06/2020: Deferred testing today d/t triaging needs LTG Duration 11 weeks 2 Intermediate Goal (LTG) Pt will report a 50% improvement in fatigue, dizziness, and headache symptoms to allow return to PLOF by 06/30/2020. 04/06/2020: Pt reports an overall 10% improvement in fatigue, a 5% improvement in dizziness and a 25-30% improvement in HAs since starting PT. Cervical work has been most beneficial. LTG Duration 11 weeks 1 Cryptologic Supervisor Goal (LTG) Pt will perform WNLs on FGA to decrease fall risk and improve balance by 06/30/2020. 04/06/2020: FGA score is 15/30 and reflects high fall risk. She has most trouble with walking tandem, with eyes closed and vertical head turns . LTG Duration 11 weeks Assessment Summary Assessment PT addresses mother's and pt's questions today and provides further education about self- care and support at home. Pt tolerates Counterstrain well and states that nausea and occipital headache is better after treatment. Con't PT for pre-op care to assist with improving normal activities at home to help mobility, balance and quality of life. Physical Therapy Plan Frequency and Duration Frequency of Treatment 1x/Week Duration of Treatment 11 weeks Plan of Care Start Date 04/06/20 Plan of Care End Date 06/30/20 Therapeutic Interventions Therapeutic Interventions Balance Training,Canalithic Repositioning,Gait Training, Home Exercise Program,Manual Therapy,Neuromuscular Re- education,Patient/Caregiver Education,Self-Care/Home Management,Sensory Integration ,Soft Tissue Mobilization, Taping,Therapeutic Activities, Therapeutic Exercises, Vestibular Rehabilitation Other Referrals/Consults Referrals/Consults Recommended Functional medicine pharmacist , talk with regular pharmacist or doctor about headache education, any supplement recommendations Next Visit Focus/Plan Next Note Type Treatment Note Next Visit Plan Con't manual work for quality of life changes. Progress thoracic mobility exercises, consider postural strengthening. Ongoing leg strengthening, balance as able . Consider ankle strengthening and SLR.
--- NOTE | 2020-05-24 13:07 | PT.OTN ---
Current Diagnoses Unspecified sequelae of cerebral infarction (05/24/20) Physical Therapy Treatment Note PT-OP-A Visit Information Start: 02/01/20 07:24 Freq: Status: Active Protocol: Document 05/24/20 12:15 MB (Rec: 05/24/20 13:05 MB [id number]) Out-Patient Physical Therapy Visit Information Visit Information Visit Type Treatment Note Visit Start Time 12:15 Visit Stop Time 13:00 Total Visit Minutes 45 Visit Number 16 PT-OP-B Current Condition Start: 02/01/20 07:24 Freq: Status: Active Protocol: Document 02/02/20 12:59 MB (Rec: 02/02/20 13:28 MB [id number]) Current Condition History of Current Condition Onset Date 07/16/2019 Current Complaints Fatigue History of Current Condition Pt reports that she did not have any sxs. 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 She does not remember anything except she had a slight ETIENNE. Her mom was there when she woke up. She was originally dxs with post- concussive syndrome. Her sxs were not getting better and she saw a neurologist. She had three MRIs and 3 CT scans and was found to have brain lesions on right side of brain and occluded middle cerebral artery. She got an ECHO and she has a PFO and a THEODORE and was found that the PFO was very small. US B LEs found superficial blood clot right calf. When she sits down, both of her feet turn blue and her right leg swells and gets better when she gets up and walks. Pt reports left leg pain with fatigue. She has symptoms intermittently and are not correlated with anything. It gets worse at night. PMH: back pain, blood clots, dizziness, falls, HAs, memory loss, neck pain, stroke/TIA, post-concussion syndrome, surgery 2013 on ureter, endometriosis Pt reports that she feels unstable on her LLE. The Cymbalta helps with left leg pain. Pt has taken Progesterone 200 mg at night and has been taking for 1 year. She has taken BCP for at least 15 years. She had many bad reactions to several BCPs and went on and off hormones. Pt has a 1 month history of migraines--sensitive to light and sound and she points to pressure on B temples and behind the eyes. Ice packs, pressure and dark room helped. Reports aspirin s/p stroke and propranolol for HTN and migraine. Pt reports dizziness after the fall, current light- headedness, neck pain after the fall that comes and goes. Pt reports short-term memory loss that is getting better. 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 Lumbar puncture and blood tests ruled out MS. She has not had vision changes. Pt has 1-2 days a week. She likes bike rides but it is hard with balance. She has bad ETIENNE on the right side afterwards. Prior Treatments and Tests Multiple tests mentioned above Treatment Goals Patient/Caregiver Goals Symptom management, balance exercises PT-OP-C Subjective Start: 02/01/20 07:24 Freq: Status: Active Protocol: Document 05/24/20 12:15 MB (Rec: 05/24/20 13:05 MB [id number]) OP-PT Subjective Patient Comments Patient Comments I have a headache. Pt points to MCA area. She states that her retro orbital headaches are better. Pt states that she does not think that the headache medication is helping . PT-OP-D Balance Start: 02/01/20 07:24 Freq: Status: Active Protocol: Document 02/02/20 12:59 MB (Rec: 02/02/20 14:06 MB [id number]) Balance Tests Other Other Balance Tests Performed Romberg standing with EO, LOB to the left after 5 sec requiring PT asst to prevent fall and so further balance testing deferred today PT-OP-M Strength Start: 02/01/20 07:24 Freq: Status: Active Protocol: Document 02/02/20 12:59 MB (Rec: 02/02/20 14:12 MB [id number]) Shoulder Strength Shoulder Manual Muscle Testing Left Flexion 4 Good Abduction (C5) 4 Good Right Flexion 5 Normal Extension 5 Normal Abduction (C5) 5 Normal Elbow/Forearm Strength Elbow and Forearm Manual Muscle Testing Left Flexion (C6) 4 Good Extension (C7) 4 Good Comments Further forearm, wrist, ham curer strengthening deferred to OT Right Flexion (C6) 5 Normal Extension (C7) 5 Normal Comments Further forearm, wrist, ham curer strengthening deferred to OT Hip Strength Hip Manual Muscle Testing Left Flexion (L2) 4 Good Right Flexion (L2) 5 Normal Knee Strength Knee Manual Muscle Testing Left Flexion (S2) 4 Good Extension (L3) 4 Good Right Flexion (S2) 5 Normal Extension (L3) 5 Normal Ankle/Foot Strength Ankle and Foot Manual Muscle Testing Left Dorsiflexion (L4) 4 Good Inversion 3 Fair Eversion (S1) 3 Fair Right Dorsiflexion (L4) 5 Normal Inversion 5 Normal Eversion (S1) 5 Normal Toe Strength Toe Manual Muscle Testing Left Great Toe Flexion 3+ Fair+ Right Great Toe Extension 5 Normal PT-OP-Q Treatments Start: 02/01/20 07:24 Freq: Status: Active Protocol: Document 05/24/20 12:15 MB (Rec: 05/24/20 13:05 MB [id number]) Manual Therapy Treatment Other Other Manual Treatments Pt agrees to Counterstrain to assess and treat fascial tension and she presents with tension in the following fascial systems: left post- ganglionics neural and pre- ganglionic neural on the right , right epidural lymphatic venous. PT treats stacks pre- and post-ganglionic neural, above T8 PT-OP-T Assessment and Plan Start: 02/01/20 07:24 Freq: Status: Active Protocol: Document 05/24/20 12:15 MB (Rec: 05/24/20 13:05 MB [id number]) Physical Therapy Assessment Rehab Potential Rehabilitation Potential Fair Evaluation Complexity Number of Personal Factors/Comorbidities 3 or More Number of Body Systems Impaired 3 Clinical Presentation at Evaluation Evolving Impairments Impairments Activity Tolerance,Balance, Coordination,Functional Activities,Functional Mobility ,Gait,Pain,Posture,Strength, Vestibular Other Impairments Body systems affected include: neurological, proprioceptive, cardiac, neuromuscular Other Concerns Fall Risk Yes Goals 4 [facility] Goal (LTG) Pt will perform progressive HEP with I including postural, flexibility, balance, LE strengthening, breathing, and VOR exercises to decrease symptoms and improve balance by 06/30/2020. 04/06/2020: Given incomplete work-up of Luiza Jarrett, revised current PT plan to remove cardio intervention with PT. She poorly tolerates leg strengthening d/t fatigue and focus is on postural and relaxation exercises to manage HAs. She is walking more since starting PT. LTG Duration 11 weeks 3 [facility] Goal (LTG) Pt will present with improved left shoulder flexion, abduction, left hip flexion, left knee flexion and extension and left foot eversion and inversion strength to 5/5 to improve balance by 06/30/2020. 04/06/2020: Deferred testing today d/t triaging needs LTG Duration 11 weeks 2 Director Of Agronomy Goal (LTG) Pt will report a 50% improvement in fatigue, dizziness, and headache symptoms to allow return to PLOF by 06/30/2020. 04/06/2020: Pt reports an overall 10% improvement in fatigue, a 5% improvement in dizziness and a 25-30% improvement in HAs since starting PT. Cervical work has been most beneficial. LTG Duration 11 weeks 1 Director Of Agronomy Goal (LTG) Pt will perform WNLs on FGA to decrease fall risk and improve balance by 06/30/2020. 04/06/2020: FGA score is 15/30 and reflects high fall risk. She has most trouble with walking tandem, with eyes closed and vertical head turns . LTG Duration 11 weeks Assessment Summary Assessment Ongoing manual work today to improve fascial tension and pt con't to do well with treatment. Her retro orbital headaches are better. Con't PT for pre-op care to assist with improving normal activities at home to help mobility, balance and quality of life. Physical Therapy Plan Frequency and Duration Frequency of Treatment 1x/Week Duration of Treatment 11 weeks Plan of Care Start Date 04/06/20 Plan of Care End Date 06/30/20 Therapeutic Interventions Therapeutic Interventions Balance Training,Canalithic Repositioning,Gait Training, Home Exercise Program,Manual Therapy,Neuromuscular Re- education,Patient/Caregiver Education,Self-Care/Home Management,Sensory Integration ,Soft Tissue Mobilization, Taping,Therapeutic Activities, Therapeutic Exercises, Vestibular Rehabilitation Other Referrals/Consults Referrals/Consults Recommended Functional medicine pharmacist , talk with regular pharmacist or doctor about headache education, any supplement recommendations Next Visit Focus/Plan Next Note Type Treatment Note Next Visit Plan Con't manual work for quality of life changes. Progress thoracic mobility exercises, consider postural strengthening. Ongoing leg strengthening, balance as able . Consider ankle strengthening and SLR.
--- NOTE | 2020-05-31 13:19 | PT.OTN ---
Current Diagnoses Unspecified sequelae of cerebral infarction (05/31/20) Physical Therapy Treatment Note PT-OP-A Visit Information Start: 02/01/20 07:24 Freq: Status: Active Protocol: Document 05/31/20 12:16 MB (Rec: 05/31/20 12:59 MB [id number]) Out-Patient Physical Therapy Visit Information Visit Information Visit Type Treatment Note Visit Start Time 12:16 Visit Stop Time 13:00 Total Visit Minutes 44 Visit Number 17 PT-OP-B Current Condition Start: 02/01/20 07:24 Freq: Status: Active Protocol: Document 02/02/20 12:59 MB (Rec: 02/02/20 13:28 MB [id number]) Current Condition History of Current Condition Onset Date 07/16/2019 Current Complaints Fatigue History of Current Condition Pt reports that she did not have any sxs. 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 She does not remember anything except she had a slight ETIENNE. Her mom was there when she woke up. She was originally dxs with post- concussive syndrome. Her sxs were not getting better and she saw a neurologist. She had three MRIs and 3 CT scans and was found to have brain lesions on right side of brain and occluded middle cerebral artery. She got an ECHO and she has a PFO and a THEODORE and was found that the PFO was very small. US B LEs found superficial blood clot right calf. When she sits down, both of her feet turn blue and her right leg swells and gets better when she gets up and walks. Pt reports left leg pain with fatigue. She has symptoms intermittently and are not correlated with anything. It gets worse at night. PMH: back pain, blood clots, dizziness, falls, HAs, memory loss, neck pain, stroke/TIA, post-concussion syndrome, surgery 2013 on ureter, endometriosis Pt reports that she feels unstable on her LLE. The Cymbalta helps with left leg pain. Pt has taken Progesterone 200 mg at night and has been taking for 1 year. She has taken BCP for at least 15 years. She had many bad reactions to several BCPs and went on and off hormones. Pt has a 1 month history of migraines--sensitive to light and sound and she points to pressure on B temples and behind the eyes. Ice packs, pressure and dark room helped. Reports aspirin s/p stroke and propranolol for HTN and migraine. Pt reports dizziness after the fall, current light- headedness, neck pain after the fall that comes and goes. Pt reports short-term memory loss that is getting better. 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 Lumbar puncture and blood tests ruled out MS. She has not had vision changes. Pt has 1-2 days a week. She likes bike rides but it is hard with balance. She has bad ETIENNE on the right side afterwards. Prior Treatments and Tests Multiple tests mentioned above Treatment Goals Patient/Caregiver Goals Symptom management, balance exercises PT-OP-C Subjective Start: 02/01/20 07:24 Freq: Status: Active Protocol: Document 05/31/20 12:16 MB (Rec: 05/31/20 12:59 MB [id number]) OP-PT Subjective Patient Comments Patient Comments Tomorrow I have my visit with the neurologist at [facility] . This is the second opinion about the surgery. The insurance is still reviewing about the surgery and it is unofficially approved. The surgery is currently scheduled for Jun 15 but she does not know if that will work out d/ t the process. Pt thinks that her memory is getting worse and her family notices that she repeats herself a lot. Since she started the Namenda for her headaches, her occipital and retro orbital headaches are better and she just has the MCA referral pain on the right side. PT-OP-D Balance Start: 02/01/20 07:24 Freq: Status: Active Protocol: Document 02/02/20 12:59 MB (Rec: 02/02/20 14:06 MB [id number]) Balance Tests Other Other Balance Tests Performed Romberg standing with EO, LOB to the left after 5 sec requiring PT asst to prevent fall and so further balance testing deferred today PT-OP-M Strength Start: 02/01/20 07:24 Freq: Status: Active Protocol: Document 02/02/20 12:59 MB (Rec: 02/02/20 14:12 MB [id number]) Shoulder Strength Shoulder Manual Muscle Testing Left Flexion 4 Good Abduction (C5) 4 Good Right Flexion 5 Normal Extension 5 Normal Abduction (C5) 5 Normal Elbow/Forearm Strength Elbow and Forearm Manual Muscle Testing Left Flexion (C6) 4 Good Extension (C7) 4 Good Comments Further forearm, wrist, telemetry nurse strengthening deferred to OT Right Flexion (C6) 5 Normal Extension (C7) 5 Normal Comments Further forearm, wrist, telemetry nurse strengthening deferred to OT Hip Strength Hip Manual Muscle Testing Left Flexion (L2) 4 Good Right Flexion (L2) 5 Normal Knee Strength Knee Manual Muscle Testing Left Flexion (S2) 4 Good Extension (L3) 4 Good Right Flexion (S2) 5 Normal Extension (L3) 5 Normal Ankle/Foot Strength Ankle and Foot Manual Muscle Testing Left Dorsiflexion (L4) 4 Good Inversion 3 Fair Eversion (S1) 3 Fair Right Dorsiflexion (L4) 5 Normal Inversion 5 Normal Eversion (S1) 5 Normal Toe Strength Toe Manual Muscle Testing Left Great Toe Flexion 3+ Fair+ Right Great Toe Extension 5 Normal PT-OP-Q Treatments Start: 02/01/20 07:24 Freq: Status: Active Protocol: Document 05/31/20 12:16 MB (Rec: 05/31/20 13:16 MB [id number]) Therapeutic Exercises Supine Exercises Diaphragm breathing Comments Pt verbalizes understanding with exercise review today Progressive Muscle Relaxation exercises Comments Pt verbalizes understanding during exercise review today Buteyko breathing blocked nostril Comments Pt verbalizes understanding during exercise review today Buteyko breathing Comments Pt verbalizes understanding during exercise review today Sitting Exercises Back paper folder upper traps and levator with active cervical SB and rotation Comments Pt verbalizes understanding during exercise review today Standing Exercises Cervical extension and flexion Comments Pt verbalizes understanding during exercise review today Intrascapular muscles STM with racquet ball Side bilateral Comments Performed today, I Other Exercises Reviewed HEP Comments Reviewed exercises today during reassessment Neuro Re-Education Treatment Balance Activities FGA Comments Pt's FGA score improves from 15/30 to 17/30 and she improves with stephen, ability to self-correct with steps and not having to stop tasks. Horizontal head turns are better. She has most trouble with tandem walking and vertical head turns. She con't to be at high risk for falls. Self-Care/Home Management Treatment Education Other Education Benefits of progress note today in setting of not knowing when surgery is and that PT will be able to access standardized testing today post-op to compare improvements in FGA and MOCA. MOCA testing reveals decreased scores in catagories of language (fluency of naming works with letter f in 1 minute) and delayed recall and these findings follow with her complaints of cognitive impairment. Ed in benefits of performing her wall squat exercise for leg strengthening that is functional . PT-OP-T Assessment and Plan Start: 02/01/20 07:24 Freq: Status: Active Protocol: Document 05/31/20 12:16 MB (Rec: 05/31/20 12:59 MB [id number]) Physical Therapy Assessment Rehab Potential Rehabilitation Potential Fair Evaluation Complexity Number of Personal Factors/Comorbidities 3 or More Number of Body Systems Impaired 3 Clinical Presentation at Evaluation Evolving Impairments Impairments Activity Tolerance,Balance, Coordination,Functional Activities,Functional Mobility ,Gait,Pain,Posture,Strength, Vestibular Other Impairments Body systems affected include: neurological, proprioceptive, cardiac, neuromuscular Other Concerns Fall Risk Yes Goals 4 Custodial Goal (LTG) Pt will perform progressive HEP with I including postural, flexibility, balance, LE strengthening, breathing, and VOR exercises to decrease symptoms and improve balance by 06/30/2020. 05/31/2020: Pt is performing the following exercises: back paper folder, progressive relaxation exercises, Buteyko breathing and neck rotation. She has not been performing wall slides. LTG Duration 4 weeks 3 Brush Painter Goal (LTG) Pt will present with improved left shoulder flexion, abduction, left hip flexion, left knee flexion and extension and left foot eversion and inversion strength to 5/5 to improve balance by 06/30/2020. 05/31/2020: Left shoulder flexion and abduction and left knee extension 5/5 today. Left hip flexion and abduction and left knee flexion and ankle eversion and inversion 4 /5. LTG Duration 4 weeks 2 Custodial Goal (LTG) Pt will report a 50% improvement in fatigue, dizziness, and headache symptoms to allow return to PLOF by 06/30/2020. 05/31/2020: Pt reports an overall 30% improvement in fatigue, a 75% improvement in dizziness and a 35% improvement in HAs since starting PT. She only notices dizziness when she is active and she is managing a new puppy. LTG Duration 4 weeks 1 Custodial Goal (LTG) Pt will perform WNLs on FGA to decrease fall risk and improve balance by 06/30/2020. 05/31/2020: FGA score is 17/30 and reflects high fall risk. She has most trouble with walking tandem and vertical head turns. Overall stephen is better and pt does not have to stop tasks. Horizontal head turns is better. LTG Duration 4 weeks Assessment Summary Assessment Pt has progressed towards the following PT goals since starting PT: performance of progressive HEP, left extremity strength, balance and reports of symptom improvement. She does con't with weakness, dizziness, headaches and fatigue as well as balance challenges in setting of right MCA MoyaMoya. Performed MOCA today to address her cognitive concerns and how these affect physical therapy recall and compliance . Pt will benefit from con't PT for pre-op care to assist with improving normal activities at home to help mobility, balance and quality of life. Physical Therapy Plan Frequency and Duration Frequency of Treatment 1x/Week Duration of Treatment 4 weeks Plan of Care Start Date 05/31/20 Plan of Care End Date 06/30/20 Therapeutic Interventions Therapeutic Interventions Balance Training,Canalithic Repositioning,Gait Training, Home Exercise Program,Manual Therapy,Neuromuscular Re- education,Patient/Caregiver Education,Self-Care/Home Management,Sensory Integration ,Soft Tissue Mobilization, Taping,Therapeutic Activities, Therapeutic Exercises, Vestibular Rehabilitation Other Referrals/Consults Referrals/Consults Recommended Functional medicine pharmacist , talk with regular pharmacist or doctor about headache education, any supplement recommendations Next Visit Focus/Plan Next Note Type Treatment Note Next Visit Plan Con't manual work for quality of life changes. Progress thoracic mobility exercises, consider postural strengthening. Ongoing leg strengthening, balance as able . Consider ankle strengthening and SLR.
--- NOTE | 2020-05-31 13:20 | PT.OPPOC ---
Physical, Occupational & Speech Therapy At [facility] Current Diagnoses Unspecified sequelae of cerebral infarction (05/31/20) Visit Care Team Role Provider Type Celia Alonso ND Primary Care Provider Non-Staff Specialty: Medical Address: Amy [address] [facility], [address], [place], [address] Email: Radhames Bullock Attending Provider Non-Staff Referring Provider Specialty: Psychiatry Address: [address] [place] [address], [id number] Email: Plan Of Care PT-OP-T Assessment and Plan Start: 02/01/20 07:24 Freq: Status: Active Protocol: Document 05/31/20 12:16 MB (Rec: 05/31/20 12:59 MB [id number]) Physical Therapy Assessment Rehab Potential Rehabilitation Potential Fair Evaluation Complexity Number of Personal Factors/Comorbidities 3 or More Number of Body Systems Impaired 3 Clinical Presentation at Evaluation Evolving Impairments Impairments Activity Tolerance,Balance, Coordination,Functional Activities,Functional Mobility ,Gait,Pain,Posture,Strength, Vestibular Other Impairments Body systems affected include: neurological, proprioceptive, cardiac, neuromuscular Other Concerns Fall Risk Yes Goals 4 Candy Rolling Machine Operator Goal (LTG) Pt will perform progressive HEP with I including postural, flexibility, balance, LE strengthening, breathing, and VOR exercises to decrease symptoms and improve balance by 06/30/2020. 05/31/2020: Pt is performing the following exercises: back warp spinner, progressive relaxation exercises, Buteyko breathing and neck rotation. She has not been performing wall slides. LTG Duration 4 weeks 3 Nursing Home Goal (LTG) Pt will present with improved left shoulder flexion, abduction, left hip flexion, left knee flexion and extension and left foot eversion and inversion strength to 5/5 to improve balance by 06/30/2020. 05/31/2020: Left shoulder flexion and abduction and left knee extension 5/5 today. Left hip flexion and abduction and left knee flexion and ankle eversion and inversion 4 /5. LTG Duration 4 weeks 2 Nursing Home Goal (LTG) Pt will report a 50% improvement in fatigue, dizziness, and headache symptoms to allow return to PLOF by 06/30/2020. 05/31/2020: Pt reports an overall 30% improvement in fatigue, a 75% improvement in dizziness and a 35% improvement in HAs since starting PT. She only notices dizziness when she is active and she is managing a new puppy. LTG Duration 4 weeks 1 Candy Rolling Machine Operator Goal (LTG) Pt will perform WNLs on FGA to decrease fall risk and improve balance by 06/30/2020. 05/31/2020: FGA score is 17/30 and reflects high fall risk. She has most trouble with walking tandem and vertical head turns. Overall stephen is better and pt does not have to stop tasks. Horizontal head turns is better. LTG Duration 4 weeks Assessment Summary Assessment Pt has progressed towards the following PT goals since starting PT: performance of progressive HEP, left extremity strength, balance and reports of symptom improvement. She does con't with weakness, dizziness, headaches and fatigue as well as balance challenges in setting of right MCA MoyaMoya. Performed MOCA today to address her cognitive concerns and how these affect physical therapy recall and compliance . Pt will benefit from con't PT for pre-op care to assist with improving normal activities at home to help mobility, balance and quality of life. Physical Therapy Plan Frequency and Duration Frequency of Treatment 1x/Week Duration of Treatment 4 weeks Plan of Care Start Date 05/31/20 Plan of Care End Date 06/30/20 Therapeutic Interventions Therapeutic Interventions Balance Training,Canalithic Repositioning,Gait Training, Home Exercise Program,Manual Therapy,Neuromuscular Re- education,Patient/Caregiver Education,Self-Care/Home Management,Sensory Integration ,Soft Tissue Mobilization, Taping,Therapeutic Activities, Therapeutic Exercises, Vestibular Rehabilitation Other Referrals/Consults Referrals/Consults Recommended Functional medicine pharmacist , talk with regular pharmacist or doctor about headache education, any supplement recommendations Next Visit Focus/Plan Next Note Type Treatment Note Next Visit Plan Con't manual work for quality of life changes. Progress thoracic mobility exercises, consider postural strengthening. Ongoing leg strengthening, balance as able . Consider ankle strengthening and SLR. Plan of Care Dates Plan of Care Start Date 05/31/20 Plan of Care End Date 06/30/20 Electronically Signed by: Donita Cruz, PT 05/31/20 1320 Please Sign and Return: I have reviewed this Plan of Care and certify that the skilled therapy services above are required to meet the patient?s needs. Physician Signature Date Printed Name and Credentials Clinical Instructor Signature Printed Name and Credentials
--- NOTE | 2020-06-07 12:58 | PT.OTN ---
Current Diagnoses Unspecified sequelae of cerebral infarction (06/07/20) Physical Therapy Treatment Note PT-OP-A Visit Information Start: 02/01/20 07:24 Freq: Status: Active Protocol: Document 06/07/20 12:15 MB (Rec: 06/07/20 12:57 MB [id number]) Out-Patient Physical Therapy Visit Information Visit Information Visit Type Treatment Note Visit Start Time 12:15 Visit Stop Time 12:57 Total Visit Minutes 42 Visit Number 18 PT-OP-B Current Condition Start: 02/01/20 07:24 Freq: Status: Active Protocol: Document 02/02/20 12:59 MB (Rec: 02/02/20 13:28 MB [id number]) Current Condition History of Current Condition Onset Date 07/16/2019 Current Complaints Fatigue History of Current Condition Pt reports that she did not have any sxs. 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 She does not remember anything except she had a slight ETIENNE. Her mom was there when she woke up. She was originally dxs with post- concussive syndrome. Her sxs were not getting better and she saw a neurologist. She had three MRIs and 3 CT scans and was found to have brain lesions on right side of brain and occluded middle cerebral artery. She got an ECHO and she has a PFO and a THEODORE and was found that the PFO was very small. US B LEs found superficial blood clot right calf. When she sits down, both of her feet turn blue and her right leg swells and gets better when she gets up and walks. Pt reports left leg pain with fatigue. She has symptoms intermittently and are not correlated with anything. It gets worse at night. PMH: back pain, blood clots, dizziness, falls, HAs, memory loss, neck pain, stroke/TIA, post-concussion syndrome, surgery 2013 on ureter, endometriosis Pt reports that she feels unstable on her LLE. The Cymbalta helps with left leg pain. Pt has taken Progesterone 200 mg at night and has been taking for 1 year. She has taken BCP for at least 15 years. She had many bad reactions to several BCPs and went on and off hormones. Pt has a 1 month history of migraines--sensitive to light and sound and she points to pressure on B temples and behind the eyes. Ice packs, pressure and dark room helped. Reports aspirin s/p stroke and propranolol for HTN and migraine. Pt reports dizziness after the fall, current light- headedness, neck pain after the fall that comes and goes. Pt reports short-term memory loss that is getting better. 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 Lumbar puncture and blood tests ruled out MS. She has not had vision changes. Pt has 1-2 days a week. She likes bike rides but it is hard with balance. She has bad ETIENNE on the right side afterwards. Prior Treatments and Tests Multiple tests mentioned above Treatment Goals Patient/Caregiver Goals Symptom management, balance exercises PT-OP-C Subjective Start: 02/01/20 07:24 Freq: Status: Active Protocol: Document 06/07/20 12:15 MB (Rec: 06/07/20 12:57 MB [id number]) OP-PT Subjective Patient Comments Patient Comments I heard from [facility] and they approved my surgery. Just waiting for the MRI and angiogram to be approved to be done at [facility]. Pt states that the second opinion from neurologist at [facility] agreed with the surgeon at [facility]. PT-OP-D Balance Start: 02/01/20 07:24 Freq: Status: Active Protocol: Document 02/02/20 12:59 MB (Rec: 02/02/20 14:06 MB [id number]) Balance Tests Other Other Balance Tests Performed Romberg standing with EO, LOB to the left after 5 sec requiring PT asst to prevent fall and so further balance testing deferred today PT-OP-M Strength Start: 02/01/20 07:24 Freq: Status: Active Protocol: Document 02/02/20 12:59 MB (Rec: 02/02/20 14:12 MB [id number]) Shoulder Strength Shoulder Manual Muscle Testing Left Flexion 4 Good Abduction (C5) 4 Good Right Flexion 5 Normal Extension 5 Normal Abduction (C5) 5 Normal Elbow/Forearm Strength Elbow and Forearm Manual Muscle Testing Left Flexion (C6) 4 Good Extension (C7) 4 Good Comments Further forearm, wrist, mig tig welder strengthening deferred to OT Right Flexion (C6) 5 Normal Extension (C7) 5 Normal Comments Further forearm, wrist, mig tig welder strengthening deferred to OT Hip Strength Hip Manual Muscle Testing Left Flexion (L2) 4 Good Right Flexion (L2) 5 Normal Knee Strength Knee Manual Muscle Testing Left Flexion (S2) 4 Good Extension (L3) 4 Good Right Flexion (S2) 5 Normal Extension (L3) 5 Normal Ankle/Foot Strength Ankle and Foot Manual Muscle Testing Left Dorsiflexion (L4) 4 Good Inversion 3 Fair Eversion (S1) 3 Fair Right Dorsiflexion (L4) 5 Normal Inversion 5 Normal Eversion (S1) 5 Normal Toe Strength Toe Manual Muscle Testing Left Great Toe Flexion 3+ Fair+ Right Great Toe Extension 5 Normal PT-OP-Q Treatments Start: 02/01/20 07:24 Freq: Status: Active Protocol: Document 06/07/20 12:15 MB (Rec: 06/07/20 12:57 MB [id number]) Manual Therapy Treatment Other Other Manual Treatments Grade II PA mobs C2 vertebra, MWM B SCM, increased tension on the left compared to right, B upper traps. PT providing trigger point pressure and pt performing active cervical rotation. Also performed for B middle scalene. Suboccipital release. PT-OP-T Assessment and Plan Start: 02/01/20 07:24 Freq: Status: Active Protocol: Document 06/07/20 12:15 MB (Rec: 06/07/20 12:57 MB [id number]) Physical Therapy Assessment Rehab Potential Rehabilitation Potential Fair Evaluation Complexity Number of Personal Factors/Comorbidities 3 or More Number of Body Systems Impaired 3 Clinical Presentation at Evaluation Evolving Impairments Impairments Activity Tolerance,Balance, Coordination,Functional Activities,Functional Mobility ,Gait,Pain,Posture,Strength, Vestibular Other Impairments Body systems affected include: neurological, proprioceptive, cardiac, neuromuscular Other Concerns Fall Risk Yes Goals 4 Half-Way Goal (LTG) Pt will perform progressive HEP with I including postural, flexibility, balance, LE strengthening, breathing, and VOR exercises to decrease symptoms and improve balance by 06/30/2020. 05/31/2020: Pt is performing the following exercises: back solutions architect, progressive relaxation exercises, Buteyko breathing and neck rotation. She has not been performing wall slides. LTG Duration 4 weeks 3 Hand Embroiderer Goal (LTG) Pt will present with improved left shoulder flexion, abduction, left hip flexion, left knee flexion and extension and left foot eversion and inversion strength to 5/5 to improve balance by 06/30/2020. 05/31/2020: Left shoulder flexion and abduction and left knee extension 5/5 today. Left hip flexion and abduction and left knee flexion and ankle eversion and inversion 4 /5. LTG Duration 4 weeks 2 Hand Embroiderer Goal (LTG) Pt will report a 50% improvement in fatigue, dizziness, and headache symptoms to allow return to PLOF by 06/30/2020. 05/31/2020: Pt reports an overall 30% improvement in fatigue, a 75% improvement in dizziness and a 35% improvement in HAs since starting PT. She only notices dizziness when she is active and she is managing a new puppy. LTG Duration 4 weeks 1 Hand Embroiderer Goal (LTG) Pt will perform WNLs on FGA to decrease fall risk and improve balance by 06/30/2020. 05/31/2020: FGA score is 17/30 and reflects high fall risk. She has most trouble with walking tandem and vertical head turns. Overall stephen is better and pt does not have to stop tasks. Horizontal head turns is better. LTG Duration 4 weeks Assessment Summary Assessment Pt presents with upper cervical joint tension today and musculature tension and she responds well to treatment today. Pt will benefit from con't PT for pre-op care to assist with improving normal activities at home to help mobility, balance and quality of life. Physical Therapy Plan Frequency and Duration Frequency of Treatment 1x/Week Duration of Treatment 4 weeks Plan of Care Start Date 05/31/20 Plan of Care End Date 06/30/20 Therapeutic Interventions Therapeutic Interventions Balance Training,Canalithic Repositioning,Gait Training, Home Exercise Program,Manual Therapy,Neuromuscular Re- education,Patient/Caregiver Education,Self-Care/Home Management,Sensory Integration ,Soft Tissue Mobilization, Taping,Therapeutic Activities, Therapeutic Exercises, Vestibular Rehabilitation Other Referrals/Consults Referrals/Consults Recommended Functional medicine pharmacist , talk with regular pharmacist or doctor about headache education, any supplement recommendations Next Visit Focus/Plan Next Note Type Treatment Note Next Visit Plan Similar: Con't manual work for quality of life changes. Progress thoracic mobility exercises, consider postural strengthening. Ongoing leg strengthening, balance as able . Consider ankle strengthening and SLR.
--- NOTE | 2020-06-14 12:59 | PT.OTN ---
Current Diagnoses Unspecified sequelae of cerebral infarction (06/14/20) Physical Therapy Treatment Note PT-OP-A Visit Information Start: 02/01/20 07:24 Freq: Status: Active Protocol: Document 06/14/20 12:16 MB (Rec: 06/14/20 12:57 MB [id number]) Out-Patient Physical Therapy Visit Information Visit Information Visit Type Treatment Note Visit Start Time 12:16 Visit Stop Time 12:56 Total Visit Minutes 40 Visit Number 19 PT-OP-B Current Condition Start: 02/01/20 07:24 Freq: Status: Active Protocol: Document 02/02/20 12:59 MB (Rec: 02/02/20 13:28 MB [id number]) Current Condition History of Current Condition Onset Date 07/16/2019 Current Complaints Fatigue History of Current Condition Pt reports that she did not have any sxs. 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 She does not remember anything except she had a slight ETIENNE. Her mom was there when she woke up. She was originally dxs with post- concussive syndrome. Her sxs were not getting better and she saw a neurologist. She had three MRIs and 3 CT scans and was found to have brain lesions on right side of brain and occluded middle cerebral artery. She got an ECHO and she has a PFO and a THEODORE and was found that the PFO was very small. US B LEs found superficial blood clot right calf. When she sits down, both of her feet turn blue and her right leg swells and gets better when she gets up and walks. Pt reports left leg pain with fatigue. She has symptoms intermittently and are not correlated with anything. It gets worse at night. PMH: back pain, blood clots, dizziness, falls, HAs, memory loss, neck pain, stroke/TIA, post-concussion syndrome, surgery 2013 on ureter, endometriosis Pt reports that she feels unstable on her LLE. The Cymbalta helps with left leg pain. Pt has taken Progesterone 200 mg at night and has been taking for 1 year. She has taken BCP for at least 15 years. She had many bad reactions to several BCPs and went on and off hormones. Pt has a 1 month history of migraines--sensitive to light and sound and she points to pressure on B temples and behind the eyes. Ice packs, pressure and dark room helped. Reports aspirin s/p stroke and propranolol for HTN and migraine. Pt reports dizziness after the fall, current light- headedness, neck pain after the fall that comes and goes. Pt reports short-term memory loss that is getting better. 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 Lumbar puncture and blood tests ruled out MS. She has not had vision changes. Pt has 1-2 days a week. She likes bike rides but it is hard with balance. She has bad ETIENNE on the right side afterwards. Prior Treatments and Tests Multiple tests mentioned above Treatment Goals Patient/Caregiver Goals Symptom management, balance exercises PT-OP-C Subjective Start: 02/01/20 07:24 Freq: Status: Active Protocol: Document 06/14/20 12:16 MB (Rec: 06/14/20 12:57 MB [id number]) OP-PT Subjective Patient Comments Patient Comments I called [place] and the insurance approved my angiogram and the surgery. They have not yet approved the MRI and so I'm waiting for that. Pt anticipates surgery by the end of the year. PT-OP-D Balance Start: 02/01/20 07:24 Freq: Status: Active Protocol: Document 02/02/20 12:59 MB (Rec: 02/02/20 14:06 MB [id number]) Balance Tests Other Other Balance Tests Performed Romberg standing with EO, LOB to the left after 5 sec requiring PT asst to prevent fall and so further balance testing deferred today PT-OP-M Strength Start: 02/01/20 07:24 Freq: Status: Active Protocol: Document 02/02/20 12:59 MB (Rec: 02/02/20 14:12 MB [id number]) Shoulder Strength Shoulder Manual Muscle Testing Left Flexion 4 Good Abduction (C5) 4 Good Right Flexion 5 Normal Extension 5 Normal Abduction (C5) 5 Normal Elbow/Forearm Strength Elbow and Forearm Manual Muscle Testing Left Flexion (C6) 4 Good Extension (C7) 4 Good Comments Further forearm, wrist, granite installer strengthening deferred to OT Right Flexion (C6) 5 Normal Extension (C7) 5 Normal Comments Further forearm, wrist, granite installer strengthening deferred to OT Hip Strength Hip Manual Muscle Testing Left Flexion (L2) 4 Good Right Flexion (L2) 5 Normal Knee Strength Knee Manual Muscle Testing Left Flexion (S2) 4 Good Extension (L3) 4 Good Right Flexion (S2) 5 Normal Extension (L3) 5 Normal Ankle/Foot Strength Ankle and Foot Manual Muscle Testing Left Dorsiflexion (L4) 4 Good Inversion 3 Fair Eversion (S1) 3 Fair Right Dorsiflexion (L4) 5 Normal Inversion 5 Normal Eversion (S1) 5 Normal Toe Strength Toe Manual Muscle Testing Left Great Toe Flexion 3+ Fair+ Right Great Toe Extension 5 Normal PT-OP-Q Treatments Start: 02/01/20 07:24 Freq: Status: Active Protocol: Document 06/14/20 12:16 MB (Rec: 06/14/20 12:57 MB [id number]) Manual Therapy Treatment Other Other Manual Treatments Pt agrees to Counterstrain to assess and treat fascial tension and pt presents with tension in the following fascial systems: right spinal medullary LV, right lower anterior visceral and right proximal mesentary visceral. 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 Proximal to distal treatments. PT-OP-T Assessment and Plan Start: 02/01/20 07:24 Freq: Status: Active Protocol: Document 06/14/20 12:16 MB (Rec: 06/14/20 12:57 MB [id number]) Physical Therapy Assessment Rehab Potential Rehabilitation Potential Fair Evaluation Complexity Number of Personal Factors/Comorbidities 3 or More Number of Body Systems Impaired 3 Clinical Presentation at Evaluation Evolving Impairments Impairments Activity Tolerance,Balance, Coordination,Functional Activities,Functional Mobility ,Gait,Pain,Posture,Strength, Vestibular Other Impairments Body systems affected include: neurological, proprioceptive, cardiac, neuromuscular Other Concerns Fall Risk Yes Goals 4 Fdc Goal (LTG) Pt will perform progressive HEP with I including postural, flexibility, balance, LE strengthening, breathing, and VOR exercises to decrease symptoms and improve balance by 06/30/2020. 05/31/2020: Pt is performing the following exercises: back tractor operator battery, progressive relaxation exercises, Buteyko breathing and neck rotation. She has not been performing wall slides. LTG Duration 4 weeks 3 Fdc Goal (LTG) Pt will present with improved left shoulder flexion, abduction, left hip flexion, left knee flexion and extension and left foot eversion and inversion strength to 5/5 to improve balance by 06/30/2020. 05/31/2020: Left shoulder flexion and abduction and left knee extension 5/5 today. Left hip flexion and abduction and left knee flexion and ankle eversion and inversion 4 /5. LTG Duration 4 weeks 2 Propellant Charge Loader Goal (LTG) Pt will report a 50% improvement in fatigue, dizziness, and headache symptoms to allow return to PLOF by 06/30/2020. 05/31/2020: Pt reports an overall 30% improvement in fatigue, a 75% improvement in dizziness and a 35% improvement in HAs since starting PT. She only notices dizziness when she is active and she is managing a new puppy. LTG Duration 4 weeks 1 Fdc Goal (LTG) Pt will perform WNLs on FGA to decrease fall risk and improve balance by 06/30/2020. 05/31/2020: FGA score is 17/30 and reflects high fall risk. She has most trouble with walking tandem and vertical head turns. Overall stephen is better and pt does not have to stop tasks. Horizontal head turns is better. LTG Duration 4 weeks Assessment Summary Assessment Still awaiting surgery plans. Pt presents with visceral tension today. Her nausea is getting better. She con't to have low appetite and her BMs are going better. Con't manual work until surgery. Physical Therapy Plan Frequency and Duration Frequency of Treatment 1x/Week Duration of Treatment 4 weeks Plan of Care Start Date 05/31/20 Plan of Care End Date 06/30/20 Therapeutic Interventions Therapeutic Interventions Balance Training,Canalithic Repositioning,Gait Training, Home Exercise Program,Manual Therapy,Neuromuscular Re- education,Patient/Caregiver Education,Self-Care/Home Management,Sensory Integration ,Soft Tissue Mobilization, Taping,Therapeutic Activities, Therapeutic Exercises, Vestibular Rehabilitation Other Referrals/Consults Referrals/Consults Recommended Functional medicine pharmacist , talk with regular pharmacist or doctor about headache education, any supplement recommendations Next Visit Focus/Plan Next Note Type Treatment Note Next Visit Plan Similar: Con't manual work for quality of life changes. Progress thoracic mobility exercises, consider postural strengthening. Ongoing leg strengthening, balance as able . Consider ankle strengthening and SLR.
--- NOTE | 2020-06-21 14:42 | PT.OTN ---
Current Diagnoses Unspecified sequelae of cerebral infarction (06/21/20) Physical Therapy Treatment Note PT-OP-A Visit Information Start: 02/01/20 07:24 Freq: Status: Active Protocol: Document 06/21/20 12:16 MB (Rec: 06/21/20 12:57 MB [id number]) Out-Patient Physical Therapy Visit Information Visit Information Visit Type Treatment Note Visit Start Time 12:16 Visit Stop Time 12:57 Total Visit Minutes 41 Visit Number 20 PT-OP-B Current Condition Start: 02/01/20 07:24 Freq: Status: Active Protocol: Document 02/02/20 12:59 MB (Rec: 02/02/20 13:28 MB [id number]) Current Condition History of Current Condition Onset Date 07/16/2019 Current Complaints Fatigue History of Current Condition Pt reports that she did not have any sxs. 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 She does not remember anything except she had a slight ETIENNE. Her mom was there when she woke up. She was originally dxs with post- concussive syndrome. Her sxs were not getting better and she saw a neurologist. She had three MRIs and 3 CT scans and was found to have brain lesions on right side of brain and occluded middle cerebral artery. She got an ECHO and she has a PFO and a THEODORE and was found that the PFO was very small. US B LEs found superficial blood clot right calf. When she sits down, both of her feet turn blue and her right leg swells and gets better when she gets up and walks. Pt reports left leg pain with fatigue. She has symptoms intermittently and are not correlated with anything. It gets worse at night. PMH: back pain, blood clots, dizziness, falls, HAs, memory loss, neck pain, stroke/TIA, post-concussion syndrome, surgery 2013 on ureter, endometriosis Pt reports that she feels unstable on her LLE. The Cymbalta helps with left leg pain. Pt has taken Progesterone 200 mg at night and has been taking for 1 year. She has taken BCP for at least 15 years. She had many bad reactions to several BCPs and went on and off hormones. Pt has a 1 month history of migraines--sensitive to light and sound and she points to pressure on B temples and behind the eyes. Ice packs, pressure and dark room helped. Reports aspirin s/p stroke and propranolol for HTN and migraine. Pt reports dizziness after the fall, current light- headedness, neck pain after the fall that comes and goes. Pt reports short-term memory loss that is getting better. 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 Lumbar puncture and blood tests ruled out MS. She has not had vision changes. Pt has 1-2 days a week. She likes bike rides but it is hard with balance. She has bad ETIENNE on the right side afterwards. Prior Treatments and Tests Multiple tests mentioned above Treatment Goals Patient/Caregiver Goals Symptom management, balance exercises PT-OP-C Subjective Start: 02/01/20 07:24 Freq: Status: Active Protocol: Document 06/21/20 12:16 MB (Rec: 06/21/20 12:57 MB [id number]) OP-PT Subjective Patient Comments Patient Comments I have no idea what's going on. I haven't gotten any updates about the MRI getting approved. Overall, since starting PT, pt's quality of life is better and she is managing training her puppy, sleeping less and has better headaches with good response to Namenda. PT-OP-D Balance Start: 02/01/20 07:24 Freq: Status: Active Protocol: Document 02/02/20 12:59 MB (Rec: 02/02/20 14:06 MB [id number]) Balance Tests Other Other Balance Tests Performed Romberg standing with EO, LOB to the left after 5 sec requiring PT asst to prevent fall and so further balance testing deferred today PT-OP-M Strength Start: 02/01/20 07:24 Freq: Status: Active Protocol: Document 02/02/20 12:59 MB (Rec: 02/02/20 14:12 MB [id number]) Shoulder Strength Shoulder Manual Muscle Testing Left Flexion 4 Good Abduction (C5) 4 Good Right Flexion 5 Normal Extension 5 Normal Abduction (C5) 5 Normal Elbow/Forearm Strength Elbow and Forearm Manual Muscle Testing Left Flexion (C6) 4 Good Extension (C7) 4 Good Comments Further forearm, wrist, roll examiner strengthening deferred to OT Right Flexion (C6) 5 Normal Extension (C7) 5 Normal Comments Further forearm, wrist, roll examiner strengthening deferred to OT Hip Strength Hip Manual Muscle Testing Left Flexion (L2) 4 Good Right Flexion (L2) 5 Normal Knee Strength Knee Manual Muscle Testing Left Flexion (S2) 4 Good Extension (L3) 4 Good Right Flexion (S2) 5 Normal Extension (L3) 5 Normal Ankle/Foot Strength Ankle and Foot Manual Muscle Testing Left Dorsiflexion (L4) 4 Good Inversion 3 Fair Eversion (S1) 3 Fair Right Dorsiflexion (L4) 5 Normal Inversion 5 Normal Eversion (S1) 5 Normal Toe Strength Toe Manual Muscle Testing Left Great Toe Flexion 3+ Fair+ Right Great Toe Extension 5 Normal PT-OP-Q Treatments Start: 02/01/20 07:24 Freq: Status: Active Protocol: Document 06/21/20 12:16 MB (Rec: 06/21/20 14:42 MB [id number]) Therapeutic Exercises Other Exercises Reviewed HEP Comments Performed today during progress note, re-ed benefits wall slide Neuro Re-Education Treatment Balance Activities FGA Comments Score similar to last progress note at the beginning of the month: with improvements in walking with eyes closed and trouble with turns today and a lot of trouble with tandem gait Self-Care/Home Management Treatment Education Other Education Ed pt in PT plan going forward : end of year visits/auth, PT needs after surgery, benefits of con't PT after surgery and holding until then Ed to con't HEP, postural exercises Ed pt to consider training dog on her left for gait as she states that he is circling around her feet and that makes her dizzy (and increased risk for falls) Ed to communicate with PT about surgical plan/dates and any surgeon recommendations for PT/PT order after surgery PT-OP-T Assessment and Plan Start: 02/01/20 07:24 Freq: Status: Active Protocol: Document 06/21/20 12:16 MB (Rec: 06/21/20 12:57 MB [id number]) Physical Therapy Assessment Rehab Potential Rehabilitation Potential Fair Evaluation Complexity Number of Personal Factors/Comorbidities 3 or More Number of Body Systems Impaired 3 Clinical Presentation at Evaluation Evolving Impairments Impairments Activity Tolerance,Balance, Coordination,Functional Activities,Functional Mobility ,Gait,Pain,Posture,Strength, Vestibular Other Impairments Body systems affected include: neurological, proprioceptive, cardiac, neuromuscular Other Concerns Fall Risk Yes Goals 5 Penitentiary Goal (LTG) Pt will gait train at least 1400 feet in 6 minutes without AD and no LOB by 08/22/2020. LTG Duration 8 weeks 4 Cloth Shrinking Tester Goal (LTG) Pt will perform progressive HEP with I including postural, flexibility, balance, LE strengthening, breathing, and VOR exercises to decrease symptoms and improve balance by 08/22/2020. 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 She has not been performing wall slides. LTG Duration 8 weeks 3 Penitentiary Goal (LTG) Pt will present with improved left shoulder flexion, abduction, left hip flexion, left knee flexion and extension and left foot eversion and inversion strength to 5/5 to improve balance by 08/22/2020. 06/21/2020: Left shoulder flexion and left hip flexion and left ankle eversion and inversion 4/5. Left shoulder abduction, left knee extension , left hip abduction 5/5 today . LTG Duration 8 weeks 2 Penitentiary Goal (LTG) Pt will report a 70% improvement in fatigue, dizziness, and headache symptoms to allow return to PLOF by 08/22/2020. 06/21/2020: Pt reports an overall 30% improvement in fatigue, a 75% improvement in dizziness and a 75% improvement in HAs since starting PT. She only notices dizziness when she is active and she is managing a new puppy. LTG Duration 8 weeks 1 Cloth Shrinking Tester Goal (LTG) Pt will perform WNLs on FGA to decrease fall risk and improve balance by 08/22/2020. 06/21/2020: FGA score is similar at 17/30 and reflects high fall risk. She has most trouble with walking tandem today. Overall stephen is better and pt does not have to stop tasks like on initial FGA. Horizontal head turns and walking with eyes closed are better. LTG Duration 8 weeks Progress Towards Goals Progress Towards Goals Slow Progress due to Medical Issues Assessment Summary Assessment Insurance authorization is up for the year and pt is awaiting final stages of insurance approval for brain surgery at [place]. Her quality of life, headache, dizziness and fatigue are better since starting PT. She has good self-management techniques for myofascial pain and relaxation to continue in PT break. PT will hold at this time and anticipate con't after surgery. Pt con't with balance impairment, left sided muscle fatigue and weakness, decreased I gait and headaches and dizziness. She will benefit from ongoing PT to address these issues. Added gait goal today. Physical Therapy Plan Frequency and Duration Frequency of Treatment 1x/Week Duration of Treatment 8 weeks Plan of Care Start Date 06/21/20 Plan of Care End Date 08/22/20 Therapeutic Interventions Therapeutic Interventions Balance Training,Canalithic Repositioning,Gait Training, Home Exercise Program,Manual Therapy,Neuromuscular Re- education,Patient/Caregiver Education,Self-Care/Home Management,Sensory Integration ,Soft Tissue Mobilization, Taping,Therapeutic Activities, Therapeutic Exercises, Vestibular Rehabilitation Other Referrals/Consults Referrals/Consults Recommended Functional medicine pharmacist , talk with regular pharmacist or doctor about headache education, any supplement recommendations Next Visit Focus/Plan Next Note Type Treatment Note Next Visit Plan Ongoing manual work, progress thoracic mobility exercises, consider postural strengthening. Ongoing leg strengthening, balance as able . Consider ankle strengthening and SLR.
--- NOTE | 2020-06-21 14:42 | PT.OPPOC ---
Physical, Occupational & Speech Therapy At [facility] Current Diagnoses Unspecified sequelae of cerebral infarction (06/21/20) Visit Care Team Role Provider Type Celia Alonso ND Primary Care Provider Non-Staff Specialty: Medical Address: [facility], [address], [place], [address] Email: Radhames Bullock MD Attending Provider Non-Staff Referring Provider Specialty: Psychiatry Address: [address] [place] [address], [id number] Email: Plan Of Care PT-OP-T Assessment and Plan Start: 02/01/20 07:24 Freq: Status: Active Protocol: Document 06/21/20 12:16 MB (Rec: 06/21/20 12:57 MB [id number]) Physical Therapy Assessment Rehab Potential Rehabilitation Potential Fair Evaluation Complexity Number of Personal Factors/Comorbidities 3 or More Number of Body Systems Impaired 3 Clinical Presentation at Evaluation Evolving Impairments Impairments Activity Tolerance,Balance, Coordination,Functional Activities,Functional Mobility ,Gait,Pain,Posture,Strength, Vestibular Other Impairments Body systems affected include: neurological, proprioceptive, cardiac, neuromuscular Other Concerns Fall Risk Yes Goals 5 Assisted Goal (LTG) Pt will gait train at least 1400 feet in 6 minutes without AD and no LOB by 08/22/2020. LTG Duration 8 weeks 4 Assisted Goal (LTG) Pt will perform progressive HEP with I including postural, flexibility, balance, LE strengthening, breathing, and VOR exercises to decrease symptoms and improve balance by 08/22/2020. 06/21/2020: Pt is performing the following exercises: diaphragm breathing, racquet ball self-massage, back dismantler, progressive relaxation exercises, Buteyko breathing and neck rotation. She has not been performing wall slides. LTG Duration 8 weeks 3 Assisted Goal (LTG) Pt will present with improved left shoulder flexion, abduction, left hip flexion, left knee flexion and extension and left foot eversion and inversion strength to 5/5 to improve balance by 08/22/2020. 06/21/2020: Left shoulder flexion and left hip flexion and left ankle eversion and inversion 4/5. Left shoulder abduction, left knee extension , left hip abduction 5/5 today . LTG Duration 8 weeks 2 Assisted Goal (LTG) Pt will report a 70% improvement in fatigue, dizziness, and headache symptoms to allow return to PLOF by 08/22/2020. 06/21/2020: Pt reports an overall 30% improvement in fatigue, a 75% improvement in dizziness and a 75% improvement in HAs since starting PT. She only notices dizziness when she is active and she is managing a new puppy. LTG Duration 8 weeks 1 Senior Clinical Data Manager Goal (LTG) Pt will perform WNLs on FGA to decrease fall risk and improve balance by 08/22/2020. 06/21/2020: FGA score is similar at 17/30 and reflects high fall risk. She has most trouble with walking tandem today. Overall stephen is better and pt does not have to stop tasks like on initial FGA. Horizontal head turns and walking with eyes closed are better. LTG Duration 8 weeks Progress Towards Goals Progress Towards Goals Slow Progress due to Medical Issues Assessment Summary Assessment Insurance authorization is up for the year and pt is awaiting final stages of insurance approval for brain surgery at [facility]. Her quality of life, headache, dizziness and fatigue are better since starting PT. She has good self-management techniques for myofascial pain and relaxation to continue in PT break. PT will hold at this time and anticipate con't after surgery. Pt con't with balance impairment, left sided muscle fatigue and weakness, decreased I gait and headaches and dizziness. She will benefit from ongoing PT to address these issues. Added gait goal today. Physical Therapy Plan Frequency and Duration Frequency of Treatment 1x/Week Duration of Treatment 8 weeks Plan of Care Start Date 06/21/20 Plan of Care End Date 08/22/20 Therapeutic Interventions Therapeutic Interventions Balance Training,Canalithic Repositioning,Gait Training, Home Exercise Program,Manual Therapy,Neuromuscular Re- education,Patient/Caregiver Education,Self-Care/Home Management,Sensory Integration ,Soft Tissue Mobilization, Taping,Therapeutic Activities, Therapeutic Exercises, Vestibular Rehabilitation Other Referrals/Consults Referrals/Consults Recommended Functional medicine pharmacist , talk with regular pharmacist or doctor about headache education, any supplement recommendations Next Visit Focus/Plan Next Note Type Treatment Note Next Visit Plan Ongoing manual work, progress thoracic mobility exercises, consider postural strengthening. Ongoing leg strengthening, balance as able . Consider ankle strengthening and SLR. Plan of Care Dates Plan of Care Start Date 06/21/20 Plan of Care End Date 08/22/20 Electronically Signed by: Donita Cruz, DAQUAN 06/21/20 [id number] Please Sign and Return: I have reviewed this Plan of Care and certify that the skilled therapy services above are required to meet the patient?s needs. Physician Signature Date Printed Name and Credentials Clinical Instructor Signature Printed Name and Credentials
--- NOTE | 2020-06-21 14:43 | PT-OP ANOTE ---
Progress note today. Pt has used all authorized PT visits for the year and to have surgery, not yet scheduled. She will currently be put on hold and await pt communicating about surgical plan and date.
--- NOTE | 2020-08-09 10:08 | PT-OP ANOTE ---
Pt has been communicating with PT s/p right MCA surgery at [place]. At this time, she is still in [place]. She reports right head swelling and inability to raise her right eye brow. Her surgeon has given her pain medication and recommends con't with speech and physical therapies outpatient when she returns to [place]. PT lets pt know that we need new orders to con't with therapies. Pt states that the surgeon does not think that she needs OT at this time. PT asks for any other surgery notes that pt can access. Pt states that her mom is on FMLA and can come to appointments with her. She is concerned about her response to therapies while she is on pain medication. Her PT and speech appointments will be on different days and will access her response to therapies and modify frequency as needed.
--- NOTE | 2020-08-10 14:50 | PT.OPDS ---
Current Diagnoses Unspecified sequelae of cerebral infarction (06/21/20) Visit Care Team Role Provider Type Celia Alonso ND Primary Care Provider Non-Staff Specialty: Medical Address: [address], [address], [place], [address] Email: Radhames Bullock MD Attending Provider Non-Staff Referring Provider Specialty: Psychiatry Address: [address] [place] [address], [place], [address] Email: Visit Number Visit Number 20 Discharge Summary PT-OP-B Current Condition Start: 02/01/20 07:24 Freq: Status: Active Protocol: Document 02/02/20 12:59 MB (Rec: 02/02/20 13:28 MB [id number]) Current Condition History of Current Condition Onset Date 07/16/2019 Current Complaints Fatigue History of Current Condition Pt reports that she did not have any sxs. 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 She does not remember anything except she had a slight ETIENNE. Her mom was there when she woke up. She was originally dxs with post- concussive syndrome. Her sxs were not getting better and she saw a neurologist. She had three MRIs and 3 CT scans and was found to have brain lesions on right side of brain and occluded middle cerebral artery. She got an ECHO and she has a PFO and a THEODORE and was found that the PFO was very small. US B LEs found superficial blood clot right calf. When she sits down, both of her feet turn blue and her right leg swells and gets better when she gets up and walks. Pt reports left leg pain with fatigue. She has symptoms intermittently and are not correlated with anything. It gets worse at night. PMH: back pain, blood clots, dizziness, falls, HAs, memory loss, neck pain, stroke/TIA, post-concussion syndrome, surgery 2012 on ureter, endometriosis Pt reports that she feels unstable on her LLE. The Cymbalta helps with left leg pain. Pt has taken Progesterone 200 mg at night and has been taking for 1 year. She has taken BCP for at least 15 years. She had many bad reactions to several BCPs and went on and off hormones. Pt has a 1 month history of migraines--sensitive to light and sound and she points to pressure on B temples and behind the eyes. Ice packs, pressure and dark room helped. Reports aspirin s/p stroke and propranolol for HTN and migraine. Pt reports dizziness after the fall, current light- headedness, neck pain after the fall that comes and goes. Pt reports short-term memory loss that is getting better. 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 Lumbar puncture and blood tests ruled out MS. She has not had vision changes. Pt has 1-2 days a week. She likes bike rides but it is hard with balance. She has bad ETIENNE on the right side afterwards. Prior Treatments and Tests Multiple tests mentioned above Treatment Goals Patient/Caregiver Goals Symptom management, balance exercises PT-OP-C Subjective Start: 02/01/20 07:24 Freq: Status: Active Protocol: Document 06/21/20 12:16 MB (Rec: 06/21/20 12:57 MB [id number]) OP-PT Subjective Patient Comments Patient Comments I have no idea what's going on. I haven't gotten any updates about the MRI getting approved. Overall, since starting PT, pt's quality of life is better and she is managing training her puppy, sleeping less and has better headaches with good response to Namenda. PT-OP-D Balance Start: 02/01/20 07:24 Freq: Status: Active Protocol: Document 02/02/20 12:59 MB (Rec: 02/02/20 14:06 MB [id number]) Balance Tests Other Other Balance Tests Performed Romberg standing with EO, LOB to the left after 5 sec requiring PT asst to prevent fall and so further balance testing deferred today PT-OP-M Strength Start: 02/01/20 07:24 Freq: Status: Active Protocol: Document 02/02/20 12:59 MB (Rec: 02/02/20 14:12 MB [id number]) Shoulder Strength Shoulder Manual Muscle Testing Left Flexion 4 Good Abduction (C5) 4 Good Right Flexion 5 Normal Extension 5 Normal Abduction (C5) 5 Normal Elbow/Forearm Strength Elbow and Forearm Manual Muscle Testing Left Flexion (C6) 4 Good Extension (C7) 4 Good Comments Further forearm, wrist, change control manager strengthening deferred to OT Right Flexion (C6) 5 Normal Extension (C7) 5 Normal Comments Further forearm, wrist, change control manager strengthening deferred to OT Hip Strength Hip Manual Muscle Testing Left Flexion (L2) 4 Good Right Flexion (L2) 5 Normal Knee Strength Knee Manual Muscle Testing Left Flexion (S2) 4 Good Extension (L3) 4 Good Right Flexion (S2) 5 Normal Extension (L3) 5 Normal Ankle/Foot Strength Ankle and Foot Manual Muscle Testing Left Dorsiflexion (L4) 4 Good Inversion 3 Fair Eversion (S1) 3 Fair Right Dorsiflexion (L4) 5 Normal Inversion 5 Normal Eversion (S1) 5 Normal Toe Strength Toe Manual Muscle Testing Left Great Toe Flexion 3+ Fair+ Right Great Toe Extension 5 Normal PT-OP-T Assessment and Plan Start: 02/01/20 07:24 Freq: Status: Active Protocol: Document 08/10/20 14:50 MB (Rec: 08/10/20 14:50 MB [id number]) Physical Therapy Plan Discharge Physical Therapy Discharge Reasons Change in Medical Status Discharge Comments Discharging this account and will open a new one. Pt s/p brain surgery for Jarrett Jarrett, right MCA.
== END 2020-08-11 11:36 ==
LOC: PHYS 12:15
PROVIDERS: PCP Naturopath; Referring Provider Psychiatry & Neurology Neurology; Visit Provider Psychiatry & Neurology Neurology
DX: I69.30 Unspecified sequelae of cerebral infarction (principal)
CPT/HCPCS: 97110; 97112; 97140; 97163; 97535

== ENCOUNTER 2020-07-11 12:30 | Outpatient (RCR) | payer OTHER, MEDICAID, SELFPAY ==
--- NOTE | 2020-02-18 18:20 | ST.OPIE ---
Visit Care Team Role Provider Type Christen Figueroa PA-C Primary Care Provider Non-Staff Specialty: Family Practice Address: [address], [address], [place], [address] Email: Radhames Bullock Attending Provider Non-Staff Referring Provider Specialty: Psychiatry Address: [address] [place] [address], [id number] Email: Speech-Language Pathology Initial Evaluation VENDOR MANAGEMENT CONSULTANT Cognitive/Memory Evaluation Start: 02/15/20 13:31 Freq: Status: Active Protocol: Document 02/15/20 13:34 PATY (Rec: 02/15/20 14:03 PATY [id number]) Evaluation of Cognition Session Time Visit Start Time 13:30 Visit Stop Time 14:25 Total Visit Minutes 55 Visit Information Visit Number Initial Evaluation Plan of Care Dates 02/15/20 - 05/10/20 Insurance Information [employer] Next Note Type Next Note Type Treatment Note Referral Referring Physician Radhames Miles Reason for Referral CVA, Post concussive syndrome Evaluation Assessment Type Cognitive Linguistic Past Medical History Patient History The pt is a 29-yr-old female s /p stroke 07/16/19. Stroke occurred when the pt was in the shower. She fell, hitting her head and developing a concussion. The pt lost consciousness, likely less than 5 min. Her mother heard the fall and immediately arrived, finding the pt facing upward in the tub/shower. Mother attempted to awaken the pt twice; the pt lost consciousness again, finally fully awakening upon the 3rd attempt. The pt's mother asked her several stroke evaluation questions, which the pt passed. After 2 days of ongoing fatigue (07/18/19), the pt came to ER and was diagnosed with concussion and sent home with concussion precautions. Pt returned one wk later on recommendation from medical professional in family for CT scan, which was done without contrast and was negative. Pt again was sent home with concussion precautions. 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 Elizondo at the [facility] weekly for 4 wks. She attempted to continue with her studies but was unable to concentrate, follow lectures and comprehend her textbooks. She quit the program in August. Dr. Elizondo referred the pt to Dr Gloria Nam, Neurologist, at [facility] in [place]. Brain imaging revealed the right middle cerebral artery on M1 branch is completely occluded and stroke was confirmed at this site. There was no visualization of brain damage from concussion. Additional testing also revealed the pt has [place], a rare cardiovascular disease, for which she is followed by Dr. Bullock at [facility]. Dr. Nam's plan is to give the brain 3 months of spontaneous healing, after which imaging with profusion under stress is planned to assess for adequate blood flow . If blood flow in inadequate, will consult with neurosurgeon. The pt reported the following impact of symptoms on function : When fatigued, the pt has difficulty producing words and loses track of conversation topics. More than one person talking at once overwhelms her quickly; she has difficulty deciphering and tracking speakers. As a result of this and experiences of prolongation and blocking in speech, she avoids many conversational opportunities. Pt's goal: To have tools to make it easier. She would like to return to her graduate program but is concerned she will not be able to. The pt lives with her mom, who cares for her, and as a result, the pt has few demands at home. Her mother works radio time sales supervisor in [employer]. The pt spends most of that time with family who lives in [place] or with boyfriend to limit her time home alone. Hearing Hearing Level Normal Vision Vision Status Impaired Comments Wears prescription glasses; Evaluated by house supervisor and cleared. [place] Language Language(s) Spoken in the Home Maltese, Farsi Educational Status Education Level B.S., was in 2nd semester of grad school for [employer] Occupational Status Occupation Status Not working; was full-time student. Unable to return to school d/t injury Previous Therapy Previous Speech-Language Therapy No: Seeing PT and OT at this clinic Subjective Subjective The pt arrived on time and provided extensive detailed case history. - Informal Assessment Receptive Language Normal WFL for basic conversation; needs further assessment. Expressive Language Normal WFL for basic conversation; needs further assessment. Articulation Normal No: Frequent prolongations and articulatory blocking Assessment Findings Expressive and receptive language skills require further assessment. While the pt demonstrated skills WFL for basic egocentric conversation on a topic which she has frequently discussed, impairments may be revealed with increased length and complexity of language. The pt exhibits speech articulation impairments characterized by prolongations , typically of consonants in initial position of words, and blocking. The pt exhibits secondary behaviors including eye movements/closing and head movements while attempting to articulate words. Further speech assessment to be completed in subsequent sessions. Formal Assessment Standardized Test Cognitive Linguistic Quick test Administration Initiated,Incomplete Results Subtests completed: Personal Facts 02/05 Symbol Cancellation 0/12 (one target symbol not cancelled; 12 incorrect symbols cancelled ) Confrontation Naming 04/09 Clock Drawing 06/12 (four numbers on left side of clock rotated) Story Retelling / (33% memory recall; 100% memory recognition) Symbol Trails / Generative Naming 7 (22 animals and 9 m-words named in 60 sec each) Design Memory 5/6 Subtests to be completed at next session: Mazes and Design Generation. - Cognition Cognitive Assessment Cognitive Assessment The pt presents with deficits in areas of attention, memory, executive functions, and possibly visuospatial skills. Assessment will be completed at next session with severity levels reported. - Memory - Recommendations Recommendations Skilled intervention is medically necessary for further assessment of speech and expressive/receptive language skills in order to diagnose deficits and guide POC, and to improve the pt's cognitive communication skills as per PLOF for return to school/work, increased independence, and improved quality of life. Treatment Goals Short Term Goals 1. The pt will participate in further assessment of speech and expressive, receptive and cognitive communication skills to guide POC. 2. The pt will perform simple focused attention tasks with 90% accuracy to improve skills required to return to school/ work. 3. With clinician assistance, the pt will develop external memory tools to increase her ability to recall pertinent information in functional situations and increase independence. 4. The pt will recall 3 or more internal memory strategies across 3 sessions to promote improved memory skills for functional tasks. 5. Using internal memory skills with min prompts, the pt will retell short stories presented orally with 80% accuracy across 3 tasks. Additional goals to be developed upon completion of assessment Senior Care Goals 1. The pt will demonstrate independent use of external memory tools to recall information necessary to complete personal/family responsibilities. 2. The pt will demonstrate independent use of internal memory strategies by recalling information of moderate complexity related to functional educational studies with 90% accuracy in order to return to school. 3. The pt will complete selective attention tasks of moderate complexity with 80% accuracy to improve skills necessary to return to school/ work. Additional goals to be developed upon completion of assessment Total Time Full Evaluation Time 55
--- NOTE | 2020-03-10 16:51 | ST.OPTN ---
Visit Care Team Role Provider Type Christen Figueroa PA-C Primary Care Provider Non-Staff Address: [address] [place] [address], [address], [place], [address] Radhames Bullock Attending Provider Non-Staff Referring Provider Address: [address] [place] [address], [id number] METALLURGICAL TECHNICIAN Treatment Note METALLURGICAL TECHNICIAN Treatment Note Start: 02/15/20 13:31 Freq: Status: Active Protocol: Document 02/22/20 17:47 PATY (Rec: 02/22/20 18:03 PATY [id number]) Speech Pathology Treatment Note Session Time Visit Start Time 14:35 Visit Stop Time 15:35 Total Visit Minutes 60 Visit Information Visit Number 1 Plan of Care Dates 02/15/20 - 05/10/20 Insurance Information [facility] Setting Treatment Setting Outpatient Care Visit Type Note Type Treatment Note Next Note Type Next Note Type Treatment Note General Information General Information Angelina is a 29-year-old right hand dominant female with complicated medical presentation. She has h/o BCP for 13 years in setting of endometriosis; she had a fall in the shower in July of 2019 in which she hit her head and loss consciousness. 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 Angelina had to stop pursuing a masters in speech d /t recent medical events. She c/o fatigue, weakness, muscle 'spasms' of hands, primary left upper extremity numbness w/ laying down (either side and not dependent of positioning of elbow), visual and auditory sensitivities, difficulties w/ word finding, short term memory deficits, as well as difficulties w/ multitasking (which she previously struggled with, however, she was able to manage). Subjective Identification Type Name,ID Card Observations/Patient Presentation The pt arrived on time. She reported difficulty completing her train of thought when speech becomes dysfluent, stating that the distraction leads her to forget what she was going to say. She also requested assistance in educating her mother on the nature of her symptoms and ways that she might assist the pt when dysfluencies occur. The pt expressed concern that her symptoms scare her mother. Chief Complaint(s) Speech,Language,Cognitive Rehab Expectation/Goals: Patient Goals Improve fluency of speech, return to school Patient Knowledge/Awareness of METALLURGICAL TECHNICIAN Role Excellent in Treatment Objective Short Term Goals 1. The pt will participate in further assessment of speech and expressive, receptive and cognitive communication skills to guide POC. 2. The pt will perform simple focused attention tasks with 90% accuracy to improve skills required to return to school/ work. 3. With clinician assistance, the pt will develop external memory tools to increase her ability to recall pertinent information in functional situations and increase independence. 4. The pt will recall 3 or more internal memory strategies across 3 sessions to promote improved memory skills for functional tasks. 5. Using internal memory skills with min prompts, the pt will retell short stories presented orally with 80% accuracy across 3 tasks. 6. The pt will demonstrate independent use of pacing board to reduce rate of speech and improve oral motor control necessary for fluent speech. 7. The pt will demonstrate understanding of word recall strategies (e.g., pausing, circumlocution and phonemic strategies) in picture description tasks to decrease word finding difficulties and improve expressive language skills. Care Home Goals 1. The pt will demonstrate independent use of external memory tools to recall information necessary to complete personal/family responsibilities. 2. The pt will demonstrate independent use of internal memory strategies by recalling information of moderate complexity related to functional educational studies with 90% accuracy in order to return to school. 3. The pt will complete selective attention tasks of moderate complexity with 80% accuracy to improve skills necessary to return to school/ work. 4. Using speech articulation strategies as needed, the pt will exhibit no more than 3 episodes of dysfluent speech in a 5-min conversation in order to improve speech intelligibility and expressive communication skills necessary to return to school and work and to engage in social interactions. 5. Using word recall strategies as needed, the pt will exhibit no more than 3 episodes of WFDs in a 5-min conversation in order to expressive communication skills necessary to return to school and work and to engage in social interactions. Treatment Activities Completed administration of CLQT assessment tool: Composite Severity Rating: Mild Attention: Moderate Memory: Mild Executive Functions: WNL Language: WNL Visuospatial Skills: Mild Clock Drawing: WNL The pt was educated on results . Collaborated with pt RE tx goals, which are modified per discussion. Recommended use of Constant Therapy neto as part of HEP. The pt was agreeable to this. Established account and initiated trial period. Assessment Patient Response to Treatment Good Rehab Potential Excellent Impairments Identified Attention,Auditory Comprehension,Cognitive- Linguistic Skills,Expressive Language,Fluency of Speech, Memory - Short Term,Memory - Working,Problem Solving, Reading Comprehension, Receptive Language,Written Expression Assessment of Improvement During completion of final CLQT subtests (mazes and design generation), the pt exhibited slow processing speeds and did not complete complex maze or design generation task within time limits. During maze, she did not see/recognize path options in the lower left quadrant of the maze or nearly a full minute. Once recognized, she continued on the correct path but ran out of time to complete the task. In design generation, she completed 5 unique designs and one perseverated design, which she immediately identified as perseverated. The pt demonstrated understanding of information provided and participated effectively in establishment of goals. She exhibited multiple episodes of dysfluent speech but without communication breakdowns. Reviewed with Patient Goals,Progress Being Made,Home Exercise Program Patient/Caregiver Understanding Excellent
--- NOTE | 2020-03-10 17:07 | ST.OPTN ---
Visit Care Team Role Provider Type Christen Figueroa PA-C Primary Care Provider Non-Staff Address: [address] [place] [address], [address], [place], [address] Radhames Bullock Attending Provider Non-Staff Referring Provider Address: [address] [place] [address], [id number] DRUM DRIER Treatment Note DR[facility] Treatment Note Start: 02/15/20 13:31 Freq: Status: Active Protocol: Document 03/08/20 17:47 PATY (Rec: 02/22/20 18:03 PATY [id number]) Speech Pathology Treatment Note Session Time Visit Start Time 13:30 Visit Stop Time 14:15 Total Visit Minutes 45 Visit Information Visit Number 2 Plan of Care Dates 02/15/20 - 05/10/20 Insurance Information Angela Setting Treatment Setting Outpatient Care Visit Type Note Type Treatment Note Next Note Type Next Note Type Treatment Note General Information General Information Angelina is a now 30-year-old right hand dominant female with complicated medical presentation. She has h/o BCP for 13 years in setting of endometriosis; she had a fall in the shower in July of 2019 in which she hit her head and loss consciousness. 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 Angelina had to stop pursuing a masters in speech d /t recent medical events. She c/o fatigue, weakness, muscle 'spasms' of hands, primary left upper extremity numbness w/ laying down (either side and not dependent of positioning of elbow), visual and auditory sensitivities, difficulties w/ word finding, short term memory deficits, as well as difficulties w/ multitasking (which she previously struggled with, however, she was able to manage). Subjective Identification Type Name,ID Card Observations/Patient Presentation : The pt arrived on time. She reported an episode in which she had a memory lapse which she said scared her. On 02/26, she and her family celebrated the pt's birthday with a significant event. The next day, the pt had difficulty recalling her age, did not independently recall the events of her birthday or conversations had between her and others. Once reminded, she required much more time than ever before to actually recall the events herself. She has not had such an episode since, but she expressed great concern over this. She also had some questions related to visuospatial skills , which were indicated as deficient in her assessment -- she asked for the definition and examples of this term, which were provided. Chief Complaint(s) Speech,Language,Cognitive Rehab Expectation/Goals: Patient Goals Improve fluency of speech, return to school Patient Knowledge/Awareness of DRUM DRIER Role Excellent in Treatment Objective Short Term Goals 1. The pt will participate in further assessment of speech and expressive, receptive and cognitive communication skills to guide POC. 2. The pt will perform simple focused attention tasks with 90% accuracy to improve skills required to return to school/ work. 3. With clinician assistance, the pt will develop external memory tools to increase her ability to recall pertinent information in functional situations and increase independence. 4. The pt will recall 3 or more internal memory strategies across 3 sessions to promote improved memory skills for functional tasks. 5. Using internal memory skills with min prompts, the pt will retell short stories presented orally with 80% accuracy across 3 tasks. 6. The pt will demonstrate independent use of pacing board to reduce rate of speech and improve oral motor control necessary for fluent speech. 7. The pt will demonstrate understanding of word recall strategies (e.g., pausing, circumlocution and phonemic strategies) in picture description tasks to decrease word finding difficulties and improve expressive language skills. [employer] Goals 1. The pt will demonstrate independent use of external memory tools to recall information necessary to complete personal/family responsibilities. 2. The pt will demonstrate independent use of internal memory strategies by recalling information of moderate complexity related to functional educational studies with 90% accuracy in order to return to school. 3. The pt will complete selective attention tasks of moderate complexity with 80% accuracy to improve skills necessary to return to school/ work. 4. Using speech articulation strategies as needed, the pt will exhibit no more than 3 episodes of dysfluent speech in a 5-min conversation in order to improve speech intelligibility and expressive communication skills necessary to return to school and work and to engage in social interactions. 5. Using word recall strategies as needed, the pt will exhibit no more than 3 episodes of WFDs in a 5-min conversation in order to expressive communication skills necessary to return to school and work and to engage in social interactions. Treatment Activities Education was provided in response to the pt's concerning event with memory loss, discussion of external and internal memory strategies . Recommended the pt initiate a daily written journal to track events, serving both as external memory tool and increasing internal memory skills. This task is also recommended to target expressive language skills, and the pt was encouraged to read her entries aloud using fluency strategies as an exercise to increase oral motor control for speech articulation. The pt had questions RE how to access Constant Therapy (CT) appp, which were answered with demonstration. She verbalized understanding and wrote notes in order to complete access at home. Over the course of the session , primarily during spontaneous conversations, the pt exhibited ~8 dysfluency episodes, such as prolongations and blocking. Occasional secondary features, including looking up and tilting her head forward were also observed. Initiated training in use of pacing board to reduce rate of speech and increase speech fluency. Given example sentences, the pt read sentences aloud, tapping a board marker with each word without dysfluency symptoms, demonstrating understanding and ability to perform task. Initiated semantic features task as circumlocution strategy for word recall. Given a picture and a series of prompts, the pt described the pictured item. During the session, she exhibited one episode of WFD, which was resolved with use of gesture and pausing, providing herself time to recall the word. Skilled feedback and education was provided RE word recall strategies. She verbalized understanding. Assessment Patient Response to Treatment Good Rehab Potential Excellent Impairments Identified Attention,Auditory Comprehension,Cognitive- Linguistic Skills,Expressive Language,Fluency of Speech, Memory - Short Term,Memory - Working,Problem Solving, Reading Comprehension, Receptive Language,Written Expression Assessment of Improvement The pt continues with frequent episodes of dysfluency, none of which resulted in communication breakdowns. The pt self-monitored well, paused and re-attempted words until successful. She also demonstrated 1 episode of WFD which was also resolved with time and with the use of gesture. She was responsive to all education and training, and was in agreement with recommendations. She demonstrated ability to perform word recall and speech strategies. Reviewed with Patient Goals,Progress Being Made,Home Exercise Program Patient/Caregiver Understanding Excellent Plan Amount of Therapy Recommended 6 Months Frequency of Treatment Once a Week Length of Session 45 Minutes Therapeutic Contents Client Education,Cognitive- Linguistic Training,Expressive Language Training,Fluency, Home Exercise Program, Information Processing, Intelligibility,Reading Comprehension,Receptive Language Training,Return to School,Written Expression Provided Patient/Caregiver Instruction Home Exercise Program,Plan of Care,Questions/Concerns Therapy Recommendations Continue with Current Program
--- NOTE | 2020-03-16 10:22 | ST.OPTN ---
Visit Care Team Role Provider Type Christen Figueroa PA-C Primary Care Provider Non-Staff Address: [address] [place] [address], [address], [place], [address] Radhames Bullock Attending Provider Non-Staff Referring Provider Address: [address] [place] [address], [id number] RANGE OPERATOR Treatment Note RANGE OPERATOR Treatment Note Start: 02/15/20 13:31 Freq: Status: Active Protocol: Document 03/15/20 11:28 PATY (Rec: 03/15/20 11:28 PATY [id number]) Speech Pathology Treatment Note Session Time Visit Start Time 09:30 Visit Stop Time 10:25 Total Visit Minutes 55 Visit Information Visit Number 3 Plan of Care Dates 02/15/20 - 05/10/20 Insurance Information [place] Setting Treatment Setting Outpatient Care Visit Type Note Type Treatment Note Next Note Type Next Note Type Treatment Note General Information General Information Angelina is a now 30-year-old right hand dominant female with complicated medical presentation. She has h/o BCP for 13 years in setting of endometriosis; she had a fall in the shower in July of 2019 in which she hit her head and loss consciousness. 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 Angelina had to stop pursuing a masters in speech d /t recent medical events. She c/o fatigue, weakness, muscle 'spasms' of hands, primary left upper extremity numbness w/ laying down (either side and not dependent of positioning of elbow), visual and auditory sensitivities, difficulties w/ word finding, short term memory deficits, as well as difficulties w/ multitasking (which she previously struggled with, however, she was able to manage). Subjective Identification Type Name,ID Card Observations/Patient Presentation The pt arrived on time. No new complaints. She reported feeling better than she felt at last session, with reduced headaches. She also reported appreciation of Constant Therapy HEP neto and successful use of both the pacing board and semantic relations exercises/strategies. She is receiving excellent support from family members who are familiar with Speech Therapy tools and goals and prompt her to use them. Chief Complaint(s) Speech,Language,Cognitive Rehab Expectation/Goals: Patient Goals Improve fluency of speech, return to school Patient Knowledge/Awareness of RANGE OPERATOR Role Excellent in Treatment Objective Short Term Goals 1. The pt will participate in further assessment of speech and expressive, receptive and cognitive communication skills to guide POC. 2. The pt will perform simple focused attention tasks with 90% accuracy to improve skills required to return to school/ work. 3. With clinician assistance, the pt will develop external memory tools to increase her ability to recall pertinent information in functional situations and increase independence. 4. The pt will recall 3 or more internal memory strategies across 3 sessions to promote improved memory skills for functional tasks. 5. Using internal memory skills with min prompts, the pt will retell short stories presented orally with 80% accuracy across 3 tasks. 6. The pt will demonstrate independent use of pacing board to reduce rate of speech and improve oral motor control necessary for fluent speech. 7. The pt will demonstrate understanding of word recall strategies (e.g., pausing, circumlocution and phonemic strategies) in picture description tasks to decrease word finding difficulties and improve expressive language skills. Snf Goals 1. The pt will demonstrate independent use of external memory tools to recall information necessary to complete personal/family responsibilities. 2. The pt will demonstrate independent use of internal memory strategies by recalling information of moderate complexity related to functional educational studies with 90% accuracy in order to return to school. 3. The pt will complete selective attention tasks of moderate complexity with 80% accuracy to improve skills necessary to return to school/ work. 4. Using speech articulation strategies as needed, the pt will exhibit no more than 3 episodes of dysfluent speech in a 5-min conversation in order to improve speech intelligibility and expressive communication skills necessary to return to school and work and to engage in social interactions. 5. Using word recall strategies as needed, the pt will exhibit no more than 3 episodes of WFDs in a 5-min conversation in order to expressive communication skills necessary to return to school and work and to engage in social interactions. Treatment Activities Educated pt in external and internal memory tools/ strategies. The pt identified areas of forgetfulness in her functional environment and collaborated with RANGE OPERATOR to determine external memory tools. Discussed effective placement of calendars and reminder notes, phone alarms, use of mediset to assist in following medicine schedule, and establishment of routines. Also trained pt in say aloud memory strategy to increase awareness of where she is placing objects to minimize losing them around her home. The pt was highly participatory in all activities and verbalized understanding of and agreement with recommendations. Instructions and information discussed was provided in writing for recall and follow- through. Reviewed HEP tasks on CT and modified as appropriate. All questions were answered. Assessment Patient Response to Treatment Good Rehab Potential Excellent Impairments Identified Attention,Auditory Comprehension,Cognitive- Linguistic Skills,Expressive Language,Fluency of Speech, Memory - Short Term,Memory - Working,Problem Solving, Reading Comprehension, Receptive Language,Written Expression Progress Towards Goals Good Progress Assessment of Overall Progress Improving Assessment of Improvement The pt is reporting and demonstrating good understanding of targeted treatment and HEP tasks and good carryover of word recall and speech fluency strategies in functional conversations. She continues to c/o significant forgetfulness, which increases her dependence on others and her ability to complete ADLs and responsibilities. She was highly receptive and responsive to education and training provided today and expressed motivation and intention to implement external memory tools in her home environment. Reviewed with Patient Goals,Progress Being Made,Home Exercise Program Patient/Caregiver Understanding Excellent Plan Amount of Therapy Recommended 6 Months Frequency of Treatment Once a Week Length of Session 45 Minutes Therapeutic Contents Client Education,Cognitive- Linguistic Training,Expressive Language Training,Fluency, Home Exercise Program, Information Processing, Intelligibility,Reading Comprehension,Receptive Language Training,Return to School,Written Expression Provided Patient/Caregiver Instruction Home Exercise Program,Plan of Care,Questions/Concerns Therapy Recommendations Continue with Current Program
--- NOTE | 2020-03-23 11:57 | ST.OPTN ---
Visit Care Team Role Provider Type Christen Figueroa PA-C Primary Care Provider Non-Staff Address: [address] [place] [address], [address], [place], [address] Radhames Bullock Attending Provider Non-Staff Referring Provider Address: [address] [place] [address], [id number] PUBLIC POLICY ANALYST Treatment Note PUBLIC POLICY ANALYST Treatment Note Start: 02/15/20 13:31 Freq: Status: Active Protocol: Document 03/21/20 14:26 PATY (Rec: 03/21/20 14:29 PATY [id number]) Speech Pathology Treatment Note Session Time Visit Start Date 03/21/20 Visit Start Time 13:30 Visit Stop Date 03/21/20 Visit Stop Time 14:15 Total Visit Minutes 45 Visit Information Visit Number 4 Plan of Care Dates 02/15/20 - 05/10/20 Insurance Information [place] Setting Treatment Setting Outpatient Care Visit Type Note Type Treatment Note Next Note Type Next Note Type Treatment Note General Information General Information Angelina is a now 30-year-old right hand dominant female with complicated medical presentation. She has h/o BCP for 13 years in setting of endometriosis; she had a fall in the shower in July of 2019 in which she hit her head and loss consciousness. 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 Angelina had to stop pursuing a masters in speech d /t recent medical events. She c/o fatigue, weakness, muscle 'spasms' of hands, primary left upper extremity numbness w/ laying down (either side and not dependent of positioning of elbow), visual and auditory sensitivities, difficulties w/ word finding, short term memory deficits, as well as difficulties w/ multitasking (which she previously struggled with, however, she was able to manage). Subjective Identification Type Name,ID Card Observations/Patient Presentation The pt arrived on time. No new complaints. She reported that pacing board and semantic relations strategies are highly effective for speech fluency and word recall. Chief Complaint(s) Speech,Language,Cognitive Rehab Expectation/Goals: Patient Goals Improve fluency of speech, return to school Patient Knowledge/Awareness of PUBLIC POLICY ANALYST Role Excellent in Treatment Objective Short Term Goals 1. The pt will participate in further assessment of speech and expressive, receptive and cognitive communication skills to guide POC. 2. The pt will perform simple focused attention tasks with 90% accuracy to improve skills required to return to school/ work. 3. With clinician assistance, the pt will develop external memory tools to increase her ability to recall pertinent information in functional situations and increase independence. 4. The pt will recall 3 or more internal memory strategies across 3 sessions to promote improved memory skills for functional tasks. 5. Using internal memory skills with min prompts, the pt will retell short stories presented orally with 80% accuracy across 3 tasks. 6. The pt will demonstrate independent use of pacing board to reduce rate of speech and improve oral motor control necessary for fluent speech. 7. The pt will demonstrate understanding of word recall strategies (e.g., pausing, circumlocution and phonemic strategies) in picture description tasks to decrease word finding difficulties and improve expressive language skills. Outside Physical Damage Appraiser Goals 1. The pt will demonstrate independent use of external memory tools to recall information necessary to complete personal/family responsibilities. 2. The pt will demonstrate independent use of internal memory strategies by recalling information of moderate complexity related to functional educational studies with 90% accuracy in order to return to school. 3. The pt will complete selective attention tasks of moderate complexity with 80% accuracy to improve skills necessary to return to school/ work. 4. Using speech articulation strategies as needed, the pt will exhibit no more than 3 episodes of dysfluent speech in a 5-min conversation in order to improve speech intelligibility and expressive communication skills necessary to return to school and work and to engage in social interactions. 5. Using word recall strategies as needed, the pt will exhibit no more than 3 episodes of WFDs in a 5-min conversation in order to expressive communication skills necessary to return to school and work and to engage in social interactions. Treatment Activities Discussed communication between Angelina and conversation partners to indicate whether or not she wants help retrieving words. Is currently telling people outright to help or not, which is working for her primary communication partners. Internal Memory strategies - Identified methods used in school (visualization, writing info down, relistening to lectures are most effective) Given 4 word lists, created sentences and recalled all 8 words after delay. She expressed being very surprised and happy at that success. Assessment Patient Response to Treatment Good Rehab Potential Excellent Impairments Identified Attention,Auditory Comprehension,Cognitive- Linguistic Skills,Expressive Language,Fluency of Speech, Memory - Short Term,Memory - Working,Problem Solving, Reading Comprehension, Receptive Language,Written Expression Progress Towards Goals Good Progress Assessment of Overall Progress Improving Assessment of Improvement The pt is making good progress toward goals. She is using recommended strategies with good success in her functional environment, with support of her family. Her speech was noted to be more fluent in today's session, with minimal occurrences of prolongations which are shorter in duration. Reviewed with Patient Goals,Progress Being Made,Home Exercise Program Patient/Caregiver Understanding Excellent Plan Amount of Therapy Recommended 3-4 Months Frequency of Treatment Once a Week Length of Session 45 Minutes Therapeutic Contents Client Education,Cognitive- Linguistic Training,Expressive Language Training,Fluency, Home Exercise Program, Information Processing, Intelligibility,Reading Comprehension,Receptive Language Training,Return to School,Written Expression Provided Patient/Caregiver Instruction Home Exercise Program,Plan of Care,Questions/Concerns Therapy Recommendations Continue with Current Program
--- NOTE | 2020-04-05 09:31 | ST.OPTN ---
Visit Care Team Role Provider Type Christen Figueroa PA-C Primary Care Provider Non-Staff Address: [address] [place] [address], [address], [place], [address] Radhames Bullock Attending Provider Non-Staff Referring Provider Address: [address] [place] [address], [id number] [facility] [employer] Treatment Note [facility] Treatment Note Start: 02/15/20 13:31 Freq: Status: Active Protocol: Document 04/05/20 09:20 PATY (Rec: 04/05/20 09:31 PATY [id number]) Speech Pathology Treatment Note Session Time Visit Start Time 08:30 Visit Stop Time 09:18 Total Visit Minutes 48 Visit Information Visit Number 5 Plan of Care Dates 02/15/20 - 05/10/20 Insurance Information [place] Setting Treatment Setting Outpatient Care Visit Type Note Type Treatment Note Next Note Type Next Note Type Treatment Note General Information General Information Angelina is a now 30-year-old right hand dominant female with complicated medical presentation. She has h/o BCP for 13 years in setting of endometriosis; she had a fall in the shower in July of 2019 in which she hit her head and loss consciousness. 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 Angelina had to stop pursuing a masters in speech d /t recent medical events. She c/o fatigue, weakness, muscle 'spasms' of hands, primary left upper extremity numbness w/ laying down (either side and not dependent of positioning of elbow), visual and auditory sensitivities, difficulties w/ word finding, short term memory deficits, as well as difficulties w/ multitasking (which she previously struggled with, however, she was able to manage). Subjective Identification Type Name,ID Card Observations/Patient Presentation The pt arrived on time. No new complaints. With regard to HEP tasks, she reported multiplication has become much easier, division remains challenging, and matching tasks feel overwhelming. Chief Complaint(s) Speech,Language,Cognitive Rehab Expectation/Goals: Patient Goals Improve fluency of speech, return to school Patient Knowledge/Awareness of [facility] Role Excellent in Treatment Objective Short Term Goals 1. The pt will participate in further assessment of speech and expressive, receptive and cognitive communication skills to guide POC. 2. The pt will perform simple focused attention tasks with 90% accuracy to improve skills required to return to school/ work. 3. With clinician assistance, the pt will develop external memory tools to increase her ability to recall pertinent information in functional situations and increase independence. 4. The pt will recall 3 or more internal memory strategies across 3 sessions to promote improved memory skills for functional tasks. 5. Using internal memory skills with min prompts, the pt will retell short stories presented orally with 80% accuracy across 3 tasks. 6. The pt will demonstrate independent use of pacing board to reduce rate of speech and improve oral motor control necessary for fluent speech. 7. The pt will demonstrate understanding of word recall strategies (e.g., pausing, circumlocution and phonemic strategies) in picture description tasks to decrease word finding difficulties and improve expressive language skills. Wig Comber Goals 1. The pt will demonstrate independent use of external memory tools to recall information necessary to complete personal/family responsibilities. 2. The pt will demonstrate independent use of internal memory strategies by recalling information of moderate complexity related to functional educational studies with 90% accuracy in order to return to school. 3. The pt will complete selective attention tasks of moderate complexity with 80% accuracy to improve skills necessary to return to school/ work. 4. Using speech articulation strategies as needed, the pt will exhibit no more than 3 episodes of dysfluent speech in a 5-min conversation in order to improve speech intelligibility and expressive communication skills necessary to return to school and work and to engage in social interactions. 5. Using word recall strategies as needed, the pt will exhibit no more than 3 episodes of WFDs in a 5-min conversation in order to expressive communication skills necessary to return to school and work and to engage in social interactions. Treatment Activities Reviewed HEP task accuracy/ results and modified tasks and levels accordingly. The pt completed simple to moderate division tasks with 100% acc, with use of notepad for moderate level difficulty. Added moderate division tasks to HEP. Confrontational Namin% over 21 items, 1 episode of WFD which the pt resolved with circumlocution strategy. Alphabetizing pictures (Fo7): 88% acc, improved with naming and first letter identification set-up. Education and training provided RE use of simplification and organization to improve memory and executive function skills . Using word matching task ( Fo30), the pt completed the task with 87% acc using trained strategies and mod-max prompts. She expressed appreciation of strategies and understanding of their benefit. Skilled feedback provided RE transference of skills to functional tasks. The pt identified daily tasks in which she felt were applicable. Assessment Patient Response to Treatment Good Rehab Potential Excellent Impairments Identified Attention,Auditory Comprehension,Cognitive- Linguistic Skills,Expressive Language,Fluency of Speech, Memory - Short Term,Memory - Working,Problem Solving, Reading Comprehension, Receptive Language,Written Expression Progress Towards Goals Good Progress Assessment of Overall Progress Improving Assessment of Improvement The pt is making good progress in HEP tasks, requiring advancement of difficulty levels. She was highly responsive to education and training presented today to improve memory and executive function skills. She also demonstrated independent use of WF strategy and reduced WFD episodes. Overall, her speech was fluent with occ episodes of minor prolongations of phonemes that did not impede expressive language production . Reviewed with Patient Goals,Progress Being Made,Home Exercise Program Patient/Caregiver Understanding Excellent Plan Amount of Therapy Recommended 3-4 Months Frequency of Treatment Once a Week Length of Session 45 Minutes Therapeutic Contents Client Education,Cognitive- Linguistic Training,Expressive Language Training,Fluency, Home Exercise Program, Information Processing, Intelligibility,Reading Comprehension,Receptive Language Training,Return to School,Written Expression Provided Patient/Caregiver Instruction Home Exercise Program,Plan of Care,Questions/Concerns Therapy Recommendations Continue with Current Program
--- NOTE | 2020-04-12 15:33 | ST.OPTN ---
Visit Care Team Role Provider Type Christen Figueroa PA-C Primary Care Provider Non-Staff Address: [address] [place] [address], [address], [place], [address] Radhames Bullock Attending Provider Non-Staff Referring Provider Address: [address] [place] [address], [id number] PRINTER APPRENTICE Treatment Note PRINTER APPRENTICE Treatment Note Start: 02/15/20 13:31 Freq: Status: Active Protocol: Document 04/12/20 15:21 PATY (Rec: 04/12/20 15:33 PATY [id number]) Speech Pathology Treatment Note Session Time Visit Start Time 14:30 Visit Stop Time 15:15 Total Visit Minutes 45 Visit Information Visit Number 6 Plan of Care Dates 02/15/20 - 05/10/20 Insurance Information [place] Setting Treatment Setting Outpatient Care Visit Type Note Type Treatment Note Next Note Type Next Note Type Treatment Note General Information General Information Angelina is a now 30-year-old right hand dominant female with complicated medical presentation. She has h/o BCP for 13 years in setting of endometriosis; she had a fall in the shower in July of 2019 in which she hit her head and loss consciousness. 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 Angelina had to stop pursuing a masters in speech d /t recent medical events. She c/o fatigue, weakness, muscle 'spasms' of hands, primary left upper extremity numbness w/ laying down (either side and not dependent of positioning of elbow), visual and auditory sensitivities, difficulties w/ word finding, short term memory deficits, as well as difficulties w/ multitasking (which she previously struggled with, however, she was able to manage). Subjective Identification Type Name,ID Card Observations/Patient Presentation The pt arrived on time. No new complaints. With regard to HEP tasks, she reported multiplication has become much easier, division remains challenging, and matching tasks feel overwhelming. Chief Complaint(s) Speech,Language,Cognitive Rehab Expectation/Goals: Patient Goals Improve fluency of speech, return to school Patient Knowledge/Awareness of PRINTER APPRENTICE Role Excellent in Treatment Objective Short Term Goals 1. The pt will participate in further assessment of speech and expressive, receptive and cognitive communication skills to guide POC. 2. The pt will perform simple focused attention tasks with 90% accuracy to improve skills required to return to school/ work. 3. With clinician assistance, the pt will develop external memory tools to increase her ability to recall pertinent information in functional situations and increase independence. 4. The pt will recall 3 or more internal memory strategies across 3 sessions to promote improved memory skills for functional tasks. 5. Using internal memory skills with min prompts, the pt will retell short stories presented orally with 80% accuracy across 3 tasks. 6. The pt will demonstrate independent use of pacing board to reduce rate of speech and improve oral motor control necessary for fluent speech. 7. The pt will demonstrate understanding of word recall strategies (e.g., pausing, circumlocution and phonemic strategies) in picture description tasks to decrease word finding difficulties and improve expressive language skills. Corporate Learning Consultant Goals 1. The pt will demonstrate independent use of external memory tools to recall information necessary to complete personal/family responsibilities. 2. The pt will demonstrate independent use of internal memory strategies by recalling information of moderate complexity related to functional educational studies with 90% accuracy in order to return to school. 3. The pt will complete selective attention tasks of moderate complexity with 80% accuracy to improve skills necessary to return to school/ work. 4. Using speech articulation strategies as needed, the pt will exhibit no more than 3 episodes of dysfluent speech in a 5-min conversation in order to improve speech intelligibility and expressive communication skills necessary to return to school and work and to engage in social interactions. 5. Using word recall strategies as needed, the pt will exhibit no more than 3 episodes of WFDs in a 5-min conversation in order to expressive communication skills necessary to return to school and work and to engage in social interactions. Treatment Activities Trained pt in word recall exercises including categorical naming, synonyms, and rhyming words: Categorical naming: Given concrete category (foods), the pt named 16 items in 60 sec. Initially, the pt named items across the alphabet for 4 items, then mental organganization became less obvious. The pt stated that once she thought of a random word, she forgot her organizational plan and had difficulty naming items. Skilled feedback and training provided RE identifying sub- categories, using visualization, and alphabet/ phonemic cues to increase cognitive organization and ability to name items. Given the same category again, the pt stated her organizational plan (sub-categories based on visualization of grocery store departments) and named 30 items in 60 sec. Skilled feedback again provided in discussion of strategies to be used with abstract categories. Given the category of emotions and using strategies, the pt named 13 emotions in 60 sec. With prompts to consider synonyms of words she listed, she generated 5 more items. As demonstration of additional exercises, the pt and clinician together named words that rhymed with objects around the room and words that begin with various letters of the alphabet. Paper-based exercises were provided for home practice. Assessment Patient Response to Treatment Excellent Rehab Potential Excellent Impairments Identified Attention,Auditory Comprehension,Cognitive- Linguistic Skills,Expressive Language,Fluency of Speech, Memory - Short Term,Memory - Working,Problem Solving, Reading Comprehension, Receptive Language,Written Expression Progress Towards Goals Good Progress Assessment of Overall Progress Improving Assessment of Improvement The pt was highly responsive to training and feedback provided today and significantly increased her ability to name items in categories using targeted strategies. She exhibited <5 very minor dysfluency characteristics which did not significantly impede larger language flow (of sentence, e. g.) and did not cause communication breakdowns. The pt reported continued effective use of finger tapping strategy and slowing down to improve speech fluency . Reviewed with Patient Goals,Progress Being Made,Home Exercise Program Patient/Caregiver Understanding Excellent Plan Amount of Therapy Recommended 3-4 Months Frequency of Treatment Once a Week Length of Session 45 Minutes Therapeutic Contents Client Education,Cognitive- Linguistic Training,Expressive Language Training,Fluency, Home Exercise Program, Information Processing, Intelligibility,Reading Comprehension,Receptive Language Training,Return to School,Written Expression Provided Patient/Caregiver Instruction Home Exercise Program,Plan of Care,Questions/Concerns Therapy Recommendations Continue with Current Program
--- NOTE | 2020-04-19 17:54 | ST.OPTN ---
Visit Care Team Role Provider Type Christen Figueroa PA-C Primary Care Provider Non-Staff Address: [address] [place] [address], [address], [place], [address] Radhames Bullock Attending Provider Non-Staff Referring Provider Address: [address] [place] [address], [id number] C[facility]IER Treatment Note CERTIFIER Treatment Note Start: 02/15/20 13:31 Freq: Status: Active Protocol: Document 04/19/20 17:38 PATY (Rec: 04/19/20 17:54 PATY [id number]) Speech Pathology Treatment Note Session Time Visit Start Time 14:30 Visit Stop Time 15:15 Total Visit Minutes 45 Visit Information Visit Number 7 Plan of Care Dates 02/15/20 - 05/10/20 Insurance Information [facility] Setting Treatment Setting Outpatient Care Visit Type Note Type Treatment Note Next Note Type Next Note Type Treatment Note General Information General Information Angelina is a now 30-year-old right hand dominant female with complicated medical presentation. She has h/o BCP for 13 years in setting of endometriosis; she had a fall in the shower in July of 2019 in which she hit her head and loss consciousness. 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 Angelina had to stop pursuing a masters in speech d /t recent medical events. She c/o fatigue, weakness, muscle 'spasms' of hands, primary left upper extremity numbness w/ laying down (either side and not dependent of positioning of elbow), visual and auditory sensitivities, difficulties w/ word finding, short term memory deficits, as well as difficulties w/ multitasking (which she previously struggled with, however, she was able to manage). Subjective Identification Type Name,ID Card Observations/Patient Presentation The pt arrived on time. She reported experiencing increased headaches, fatigue, and brain fog over the past week. She consulted with her Neurologist who suspects the pt has experienced additional seizure activity. Today she reported being very tired with increased dysfluencies in speech, which were noted by the CERTIFIER. Chief Complaint(s) Speech,Language,Cognitive Rehab Expectation/Goals: Patient Goals Improve fluency of speech, return to school Patient Knowledge/Awareness of CERTIFIER Role Excellent in Treatment Patient/Caregiver Compliance with Home Excellent Exercise Program Objective Short Term Goals 1. The pt will participate in further assessment of speech and expressive, receptive and cognitive communication skills to guide POC. 2. The pt will perform simple focused attention tasks with 90% accuracy to improve skills required to return to school/ work. 3. With clinician assistance, the pt will develop external memory tools to increase her ability to recall pertinent information in functional situations and increase independence. 4. The pt will recall 3 or more internal memory strategies across 3 sessions to promote improved memory skills for functional tasks. 5. Using internal memory skills with min prompts, the pt will retell short stories presented orally with 80% accuracy across 3 tasks. 6. The pt will demonstrate independent use of pacing board to reduce rate of speech and improve oral motor control necessary for fluent speech. 7. The pt will demonstrate understanding of word recall strategies (e.g., pausing, circumlocution and phonemic strategies) in picture description tasks to decrease word finding difficulties and improve expressive language skills. Chcf Goals 1. The pt will demonstrate independent use of external memory tools to recall information necessary to complete personal/family responsibilities. 2. The pt will demonstrate independent use of internal memory strategies by recalling information of moderate complexity related to functional educational studies with 90% accuracy in order to return to school. 3. The pt will complete selective attention tasks of moderate complexity with 80% accuracy to improve skills necessary to return to school/ work. 4. Using speech articulation strategies as needed, the pt will exhibit no more than 3 episodes of dysfluent speech in a 5-min conversation in order to improve speech intelligibility and expressive communication skills necessary to return to school and work and to engage in social interactions. 5. Using word recall strategies as needed, the pt will exhibit no more than 3 episodes of WFDs in a 5-min conversation in order to expressive communication skills necessary to return to school and work and to engage in social interactions. Treatment Activities The pt exhibited significantly increase dysfluency in speech throughout the session, primarily blocking on initial onset of words. Episodes occurred in ~75% of utterences and were present across a variety of phoneme types: stops (/p/, /d/, /t/, /k/), fricatives (/f/, /h/), affricates (ch), and glides (/w/). Given the [place] in writing, the pt read the paragraph employing tapping strategy. This mildly reduced the number of blocking episodes but resulted in robotic speech. Trained the pt in linking strategy (i.e., linking ends of words to beginnings of the words that follow) in order to mitigate the word onset condition. The pt read two paragraphs employing this strategy. Again, dysfluencies were minimized but not eliminated and the flow of speech was more natural sounding. This strategy was less effective with simple text written in short sentences, as the onset of new sentences further elicited blocking. Given a picture, the pt was asked to describe the picture using the linking strategy. She demonstrated good indepenence with the strategy use, and speech was noted to be more fluent when linking was used than when it was not. Further training and investigation of other strategies is required. Assessment Patient Response to Treatment Excellent Rehab Potential Excellent Impairments Identified Attention,Auditory Comprehension,Cognitive- Linguistic Skills,Expressive Language,Fluency of Speech, Memory - Short Term,Memory - Working,Problem Solving, Reading Comprehension, Receptive Language,Written Expression Progress Towards Goals Good Progress Assessment of Overall Progress Improving Assessment of Improvement The pt presented with significantly dysfluent speech as compared to other sessions . She primarily exhibited blocking at initial position of words and sentences with identifiable phonemes (listed above). Speech was most improved with linking strategy that promoted the flow of words into each other, thereby reducing the sense of starting and stopping while maintaining natural sounding speech. The strategy did not completely eliminate blocking episodes. The pt demonstrated excellent understanding and abilty to use the strategy and added a component of tracing a line on her leg to assist her in maintaining constant flow of speech, which was insightful and helpful. Reviewed with Patient Goals,Progress Being Made,Home Exercise Program Patient/Caregiver Understanding Excellent Plan Amount of Therapy Recommended 3-4 Months Frequency of Treatment Once a Week Length of Session 45 Minutes Therapeutic Contents Client Education,Cognitive- Linguistic Training,Expressive Language Training,Fluency, Home Exercise Program, Information Processing, Intelligibility,Reading Comprehension,Receptive Language Training,Return to School,Written Expression Provided Patient/Caregiver Instruction Home Exercise Program,Plan of Care,Questions/Concerns Therapy Recommendations Continue with Current Program
--- NOTE | 2020-04-27 17:53 | ST.OPTN ---
Visit Care Team Role Provider Type Christen Figueroa PA-C Primary Care Provider Non-Staff Address: [address] [place] [address], [address], [place], [address] Radhames Bullock Attending Provider Non-Staff Referring Provider Address: [address] [place] [address], [id number] [employer]YWO[employer] VENEER REPAIRER Treatment Note PL[employer]WOOD AND VENEER REPAIRER Treatment Note Start: 02/15/20 13:31 Freq: Status: Active Protocol: Document 04/26/20 17:43 PATY (Rec: 04/27/20 17:53 PATY [id number]) Speech Pathology Treatment Note Session Time Visit Start Time 14:30 Visit Stop Time 15:15 Total Visit Minutes 45 Visit Information Visit Number 8 Plan of Care Dates 02/15/20 - 05/10/20 Insurance Information [place] Setting Treatment Setting Outpatient Care Visit Type Note Type Treatment Note Next Note Type Next Note Type Treatment Note General Information General Information Angelina is a now 30-year-old right hand dominant female with complicated medical presentation. She has h/o BCP for 13 years in setting of endometriosis; she had a fall in the shower in July of 2019 in which she hit her head and loss consciousness. 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 Angelina had to stop pursuing a masters in speech d /t recent medical events. She c/o fatigue, weakness, muscle 'spasms' of hands, primary left upper extremity numbness w/ laying down (either side and not dependent of positioning of elbow), visual and auditory sensitivities, difficulties w/ word finding, short term memory deficits, as well as difficulties w/ multitasking (which she previously struggled with, however, she was able to manage). Subjective Identification Type Name,ID Card Observations/Patient Presentation The pt arrived on time. She reported feeling tired but better than at last session, with reduced blocking after she had gotten some rest. Chief Complaint(s) Speech,Language,Cognitive Rehab Expectation/Goals: Patient Goals Improve fluency of speech, return to school Patient Knowledge/Awareness of PLYWO[employer] VENEER REPAIRER Role Excellent in Treatment Patient/Caregiver Compliance with Home Excellent Exercise Program Objective Short Term Goals 1. The pt will participate in further assessment of speech and expressive, receptive and cognitive communication skills to guide POC. 2. The pt will perform simple focused attention tasks with 90% accuracy to improve skills required to return to school/ work. 3. With clinician assistance, the pt will develop external memory tools to increase her ability to recall pertinent information in functional situations and increase independence. 4. The pt will recall 3 or more internal memory strategies across 3 sessions to promote improved memory skills for functional tasks. 5. Using internal memory skills with min prompts, the pt will retell short stories presented orally with 80% accuracy across 3 tasks. 6. The pt will demonstrate independent use of pacing board to reduce rate of speech and improve oral motor control necessary for fluent speech. 7. The pt will demonstrate understanding of word recall strategies (e.g., pausing, circumlocution and phonemic strategies) in picture description tasks to decrease word finding difficulties and improve expressive language skills. Intermediate Goals 1. The pt will demonstrate independent use of external memory tools to recall information necessary to complete personal/family responsibilities. 2. The pt will demonstrate independent use of internal memory strategies by recalling information of moderate complexity related to functional educational studies with 90% accuracy in order to return to school. 3. The pt will complete selective attention tasks of moderate complexity with 80% accuracy to improve skills necessary to return to school/ work. 4. Using speech articulation strategies as needed, the pt will exhibit no more than 3 episodes of dysfluent speech in a 5-min conversation in order to improve speech intelligibility and expressive communication skills necessary to return to school and work and to engage in social interactions. 5. Using word recall strategies as needed, the pt will exhibit no more than 3 episodes of WFDs in a 5-min conversation in order to expressive communication skills necessary to return to school and work and to engage in social interactions. Treatment Activities Education provided to pt RE Resonant Valsalva-Relaxed Speech theory and technique ( Tomy, 2019) and trained pt in identifying, tensing and relaxing muscles involved in valsalva maneuver, including glottis. The pt performed tensing and relaxing of muscles with verbal guidance. Blocking on various phonemes was mimicked by PLYWOOD [employer] VENEER REPAIRER and pt to increase awareness of valsalva musculature involvement. As muscules were relaxed, the pt was able to release air from the glottis, demonstrating control over musculature. The pt verbalized understanding of education and questioned why she was experiencing expressive language deficits when her injury occured in the right brain hemisphere and language centers are primarily located in left hemisphere. Questions were answered with clarification that blocking experiences are symptoms of oral motor movements and articulation and are not symptoms of language deficits. The pt verbalized understanding and appreciation of clarification. Assessment Patient Response to Treatment Excellent Rehab Potential Excellent Impairments Identified Attention,Auditory Comprehension,Cognitive- Linguistic Skills,Expressive Language,Fluency of Speech, Memory - Short Term,Memory - Working,Problem Solving, Reading Comprehension, Receptive Language,Written Expression Progress Towards Goals Good Progress Assessment of Overall Progress Improving Assessment of Improvement The pt was highly receptive to all education provided and able to volitionally contract and relax muscles involved with valsalva maneuver, including glottis. This sets the foundation for training in Resonant Valsalva-Relaxed Speech to improve the pt's fluency and ability to communicate. Reviewed with Patient Goals,Progress Being Made,Home Exercise Program Patient/Caregiver Understanding Excellent Plan Amount of Therapy Recommended 3-4 Months Frequency of Treatment Once a Week Length of Session 45 Minutes Therapeutic Contents Client Education,Cognitive- Linguistic Training,Expressive Language Training,Fluency, Home Exercise Program, Information Processing, Intelligibility,Reading Comprehension,Receptive Language Training,Return to School,Written Expression Provided Patient/Caregiver Instruction Home Exercise Program,Plan of Care,Questions/Concerns Therapy Recommendations Continue with Current Program
--- NOTE | 2020-05-03 14:22 | ST.OPTN ---
Visit Care Team Role Provider Type Christen Figueroa PA-C Primary Care Provider Non-Staff Address: [address] [place] [address], [address], [place], [address] Radhames Bullock Attending Provider Non-Staff Referring Provider Address: [address] [place] [address], [id number] [employer] PROFESSOR Treatment Note [employer] PROFESSOR Treatment Note Start: 02/15/20 13:31 Freq: Status: Active Protocol: Document 05/03/20 13:19 PATY (Rec: 05/03/20 13:29 PATY [id number]) Speech Pathology Treatment Note Session Time Visit Start Time 12:30 Visit Stop Time 13:15 Total Visit Minutes 45 Visit Information Visit Number 9 Plan of Care Dates 02/15/20 - 05/10/20 Insurance Information [place] Setting Treatment Setting Outpatient Care Visit Type Note Type Treatment Note Next Note Type Next Note Type Treatment Note General Information General Information Angelina is a now 30-year-old right hand dominant female with complicated medical presentation. She has h/o BCP for 13 years in setting of endometriosis; she had a fall in the shower in July of 2019 in which she hit her head and loss consciousness. 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 Angelina had to stop pursuing a masters in speech d /t recent medical events. She c/o fatigue, weakness, muscle 'spasms' of hands, primary left upper extremity numbness w/ laying down (either side and not dependent of positioning of elbow), visual and auditory sensitivities, difficulties w/ word finding, short term memory deficits, as well as difficulties w/ multitasking (which she previously struggled with, however, she was able to manage). Subjective Identification Type Name,ID Card Observations/Patient Presentation The pt arrived on time. No new complaints. 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 The pt will participate in further assessment of speech and expressive, receptive and cognitive communication skills to guide POC. 2. The pt will perform simple focused attention tasks with 90% accuracy to improve skills required to return to school/ work. 3. With clinician assistance, the pt will develop external memory tools to increase her ability to recall pertinent information in functional situations and increase independence. 4. The pt will recall 3 or more internal memory strategies across 3 sessions to promote improved memory skills for functional tasks. 5. Using internal memory skills with min prompts, the pt will retell short stories presented orally with 80% accuracy across 3 tasks. 6. The pt will demonstrate independent use of pacing board to reduce rate of speech and improve oral motor control necessary for fluent speech. 7. The pt will demonstrate understanding of word recall strategies (e.g., pausing, circumlocution and phonemic strategies) in picture description tasks to decrease word finding difficulties and improve expressive language skills. Chcf Goals 1. The pt will demonstrate independent use of external memory tools to recall information necessary to complete personal/family responsibilities. 2. The pt will demonstrate independent use of internal memory strategies by recalling information of moderate complexity related to functional educational studies with 90% accuracy in order to return to school. 3. The pt will complete selective attention tasks of moderate complexity with 80% accuracy to improve skills necessary to return to school/ work. 4. Using speech articulation strategies as needed, the pt will exhibit no more than 3 episodes of dysfluent speech in a 5-min conversation in order to improve speech intelligibility and expressive communication skills necessary to return to school and work and to engage in social interactions. 5. Using word recall strategies as needed, the pt will exhibit no more than 3 episodes of WFDs in a 5-min conversation in order to expressive communication skills necessary to return to school and work and to engage in social interactions. Treatment Activities Attention: The pt completed alternating attention task ( matching alternating symbols) in isolation easily and with 100% acc. Increased challenge by adding speaking tasks. The pt completed symbol task while telling a personal story, reciting numbers forward and backward, months of the year, and then again telling a story and answering M[employer] PROFESSOR's questions about it. Iniitally, she exhibited and c/o significant effort generating spontaneous speech while completing the task, although she achieved 100% acc but much increased latency. Latency improved with forward automatic speech tasks with 97% acc across 4 tasks. Latency again decreased when counting backward from 20. Following repetitions with easier speech tasks, the pt returned to telling a story and demonstrated much improved latency and 100% acc, exhibiting significantly less effort than shown at first attempt. She reported feeling it was much easier. Skilled feedback provided RE strategies for easing into new tasks and anticipating them to become easier with practice . Memory: The pt completed Spoken Word memory task of moderate complexity independently using memory strategies and organization targeted in previous sessions; 98% acc. Given short stories presented orally, the pt recalled critical details with 73% acc and recalled remaining details with 100% acc. Skilled feedback provided RE memory strategies used in story task and transference to conversation. Assessment Patient Response to Treatment Excellent Rehab Potential Excellent Impairments Identified Attention,Auditory Comprehension,Cognitive- Linguistic Skills,Expressive Language,Fluency of Speech, Memory - Short Term,Memory - Working,Problem Solving, Reading Comprehension, Receptive Language,Written Expression Progress Towards Goals Good Progress Assessment of Overall Progress Improving Assessment of Improvement The pt demonstrated independence in using memory strategies in organized task and story retelling. She initially exhibited notable effort to complete dual attention tasks, which improved quickly with practice using less demanding stimuli. After practice, the pt was able to perform task with initial level of stimulus difficulty with much improved ease and speed while maintaining excellent accuracy . Reviewed with Patient Goals,Progress Being Made,Home Exercise Program Patient/Caregiver Understanding Excellent Plan Amount of Therapy Recommended 3-4 Months Frequency of Treatment Once a Week Length of Session 45 Minutes Therapeutic Contents Client Education,Cognitive- Linguistic Training,Expressive Language Training,Fluency, Home Exercise Program, Information Processing, Intelligibility,Reading Comprehension,Receptive Language Training,Return to School,Written Expression Provided Patient/Caregiver Instruction Home Exercise Program,Plan of Care,Questions/Concerns Therapy Recommendations Continue with Current Program
--- NOTE | 2020-05-18 16:52 | ST.OPTN ---
Visit Care Team Role Provider Type Christen Figueroa PA-C Primary Care Provider Non-Staff Address: [address] [place] [address], [address], [place], [address] Radhames Bullock Attending Provider Non-Staff Referring Provider Address: [address] [place] [address], [id number] [employer] Treatment Note [employer] Treatment Note Start: 02/15/20 13:31 Freq: Status: Active Protocol: Document 05/18/20 16:27 PATY (Rec: 05/18/20 16:50 PATY [id number]) Speech Pathology Treatment Note Session Time Visit Start Time 14:30 Visit Stop Time 15:15 Total Visit Minutes 45 Visit Information Visit Number 9 Plan of Care Dates 05/18/20 - 08/18/19 Insurance Information [place] Setting Treatment Setting Outpatient Care Visit Type Note Type Progress Note Next Note Type Next Note Type Treatment Note General Information General Information Angelina is a now 30-year-old right hand dominant female with complicated medical presentation. She has h/o BCP for 13 years in setting of endometriosis; she had a fall in the shower in July of 2019 in which she hit her head and loss consciousness. 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 Angelina had to stop pursuing a masters in speech d /t recent medical events. She c/o fatigue, weakness, muscle 'spasms' of hands, primary left upper extremity numbness w/ laying down (either side and not dependent of positioning of elbow), visual and auditory sensitivities, difficulties w/ word finding, short term memory deficits, as well as difficulties w/ multitasking (which she previously struggled with, however, she was able to manage). Subjective Identification Type Name,ID Card Observations/Patient Presentation The pt arrived on time accompanied by her mother, who was present throughout the session. The pt reported increased memory deficits and increased stuttering even when not fatigued. Her boyfriend frequently tells her that she is repeating herself, she has difficulty recalling what others have said to her, and is more frequently losing her train of thought while talking , especially when she starts blocking in her speech. The pt 's mother agreed these events are happening more frequently. The pt also expressed frustration with others who speak for her by completing her sentences when she pauses in speech. Chief Complaint(s) Speech,Language,Cognitive Rehab Expectation/Goals: Patient Goals Improve fluency of speech, return to school Patient Knowledge/Awareness of [employer] Role Excellent in Treatment Patient/Caregiver Compliance with Home Excellent Exercise Program Objective Short Term Goals 1. The pt will participate in further assessment of speech and expressive, receptive and cognitive communication skills to guide POC. 2. The pt will perform simple focused attention tasks with 90% accuracy to improve skills required to return to school/ work. 3. With clinician assistance, the pt will develop external memory tools to increase her ability to recall pertinent information in functional situations and increase independence. 4. The pt will recall 3 or more internal memory strategies across 3 sessions to promote improved memory skills for functional tasks. 5. Using internal memory skills with min prompts, the pt will retell short stories presented orally with 80% accuracy across 3 tasks. 6. The pt will demonstrate independent use of pacing board to reduce rate of speech and improve oral motor control necessary for fluent speech. 7. The pt will demonstrate understanding of word recall strategies (e.g., pausing, circumlocution and phonemic strategies) in picture description tasks to decrease word finding difficulties and improve expressive language skills. Warp Coiler Goals 1. The pt will demonstrate independent use of external memory tools to recall information necessary to complete personal/family responsibilities. 2. The pt will demonstrate independent use of internal memory strategies by recalling information of moderate complexity related to functional educational studies with 90% accuracy in order to return to school. 3. The pt will complete selective attention tasks of moderate complexity with 80% accuracy to improve skills necessary to return to school/ work. 4. Using speech articulation strategies as needed, the pt will exhibit no more than 3 episodes of dysfluent speech in a 5-min conversation in order to improve speech intelligibility and expressive communication skills necessary to return to school and work and to engage in social interactions. 5. Using word recall strategies as needed, the pt will exhibit no more than 3 episodes of WFDs in a 5-min conversation in order to expressive communication skills necessary to return to school and work and to engage in social interactions. Treatment Activities Memory & Orientation: The pt required extended time (>15 sec) to recall the day of the week, which she did correctly. She required verbal prompts from her mother to recall a major event that occurred the previous day. Education was provided RE memory function and associated attention skills and internal and external memory tools. The pt stated she uses a calendar and alarms on her phone to track and recall appts and other events. Recommended the pt keep a daily written journal to assist in recalling and tracking daily events, as both internal strategy and external tool. The pt stated she enjoys journaling, had started one but forgets to write in it. Recommended the pt establish a routine of journaling at a certain time of day, best to be when she is energetic, not at the end of the day for example. She was receptive to this. Educated the pt in use of a memory notebook by providing an example and discussing its intended uses. The pt was open to considering this, and a small notebook was provided to get her started. Communication: Discussed and recommended the pt establish hand signals to use with close communication partners, to indicate when the pt does and does not wish others to assist her with word recall and/or tracking her place when she's speaking. Discussed shared roles in communication, and the importance of the pt communicating to others her wants and needs, therapeutic strategies that she is attempting to use, and the importance of others to allow for opportunities for her to use them. Caregiver training was provided to the pt's mother in appropriate prompts/ cues that she could provide to the pt to assist her in word recall and tracking conversation without actually speaking for her and ways in which her mother could otherwise support Angelina and educate those who are close to her. Throughout the session, Angelina's mother was writing notes; therefore, the [employer] did not provide written information from this session. Assessment Patient Response to Treatment Excellent Rehab Potential Excellent Impairments Identified Attention,Auditory Comprehension,Cognitive- Linguistic Skills,Expressive Language,Fluency of Speech, Memory - Short Term,Memory - Working,Problem Solving, Reading Comprehension, Receptive Language,Written Expression Progress Towards Goals Good Progress Assessment of Overall Progress Improving Assessment of Improvement Both the pt and her mom were receptive to all education and recommendations provided. The pt did exhibit consistent moderate dysfluency mostly in the form of prolongations and blocking throughout the session; however they did not result in communication breakdowns. Once the pt required prompt for word recall, and once for recalling conversation topic so she could continue expressing herself. Over the course of treatment, the pt has been highly responsive to therapeutic intervention. She has benefited from use of pacing to reduce frequency and intensity of dysfluencies, but this has not eliminated them. She has demonstrated excellent carryover of communication and memory strategies and has been very well supported by her family. It is anticipated that her mother's presence today will be beneficial, as will her future involvement. Deficits continue for the pt, however, and some deficits such as memory and dysfluency appear to be worsening. Therefore, continued skilled intervention is medically necessary to improve the pt's skills and ability to communicate her wants/needs/ideas effectively in order to increase independence, improve quality of life, and return to work/ school. Reviewed with Patient Goals,Progress Being Made,Home Exercise Program Patient/Caregiver Understanding Excellent Plan Amount of Therapy Recommended 6 Months Frequency of Treatment Once a Week Length of Session 45 Minutes Therapeutic Contents Client Education,Cognitive- Linguistic Training,Expressive Language Training,Fluency, Home Exercise Program, Information Processing, Intelligibility,Reading Comprehension,Receptive Language Training,Return to School,Written Expression Provided Patient/Caregiver Instruction Home Exercise Program,Plan of Care,Questions/Concerns Therapy Recommendations Continue with Current Program
--- NOTE | 2020-05-18 17:08 | ST.OPTN ---
Visit Care Team Role Provider Type Christen Figueroa PA-C Primary Care Provider Non-Staff Address: [address] [place] [address], [address], [place], [address] Radhames Bullock Attending Provider Non-Staff Referring Provider Address: [address] [place] [address], [id number] SENIOR SOFTWARE PROJECT MANAGER Treatment Note SENIOR SOFTWARE PROJECT MANAGER Treatment Note Start: 02/15/20 13:31 Freq: Status: Active Protocol: Document 05/18/20 16:27 PATY (Rec: 05/18/20 16:50 PATY [id number]) Speech Pathology Treatment Note Session Time Visit Start Time 14:30 Visit Stop Time 15:15 Total Visit Minutes 45 Visit Information Visit Number 9 Plan of Care Dates 05/18/20 - 08/18/19 Insurance Information [place] Setting Treatment Setting Outpatient Care Visit Type Note Type Progress Note Next Note Type Next Note Type Treatment Note General Information General Information Angelina is a now 30-year-old right hand dominant female with complicated medical presentation. She has h/o BCP for 13 years in setting of endometriosis; she had a fall in the shower in July of 2019 in which she hit her head and loss consciousness. 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 Angelina had to stop pursuing a masters in speech d /t recent medical events. She c/o fatigue, weakness, muscle 'spasms' of hands, primary left upper extremity numbness w/ laying down (either side and not dependent of positioning of elbow), visual and auditory sensitivities, difficulties w/ word finding, short term memory deficits, as well as difficulties w/ multitasking (which she previously struggled with, however, she was able to manage). Subjective Identification Type Name,ID Card Observations/Patient Presentation The pt arrived on time accompanied by her mother, who was present throughout the session. The pt reported increased memory deficits and increased stuttering even when not fatigued. Her boyfriend frequently tells her that she is repeating herself, she has difficulty recalling what others have said to her, and is more frequently losing her train of thought while talking , especially when she starts blocking in her speech. The pt 's mother agreed these events are happening more frequently. The pt also expressed frustration with others who speak for her by completing her sentences when she pauses in speech. Chief Complaint(s) Speech,Language,Cognitive Rehab Expectation/Goals: Patient Goals Improve fluency of speech, return to school Patient Knowledge/Awareness of SENIOR SOFTWARE PROJECT MANAGER Role Excellent in Treatment Patient/Caregiver Compliance with Home Excellent Exercise Program Objective Short Term Goals 1. The pt will perform simple focused attention tasks with 90% accuracy to improve skills required to return to school/ work. GOAL MET 2. With clinician assistance, the pt will develop external memory tools (e.g., journal, memory notebook, alarms) to increase her ability to recall pertinent information in functional situations and increase independence. MAKING PROGRESS; CONTINUE GOAL 3. The pt will recall 3 or more internal memory strategies across 3 sessions to promote improved memory skills for functional tasks. CONTINUE GOAL 4. Using internal memory skills with min prompts, the pt will retell short stories presented orally with 80% accuracy across 3 tasks. MAKING PROGRESS; CONTINUE GOAL 5. The pt will demonstrate independent use of pacing board to reduce rate of speech and improve oral motor control necessary for fluent speech. GOAL MET 6. The pt will demonstrate understanding of word recall strategies (e.g., pausing, circumlocution and phonemic strategies) in picture description tasks to decrease word finding difficulties and improve expressive language skills. GOAL MET NEW GOALS: 5. Using relaxation techniques , the pt will complete picture description tasks with 75% fluent speech to increase ability to effectively communicate with others. 6. Upon episodes when the pt has lost her train of thought in oral expression, she will demonstrate ability to resume oral communication with min prompts in 80% of opportunities to avoid communication breakdowns. Caregiver training in prompting to be provided. Shelter Goals MAKING PROGRESS; CONTINUE ALL GOALS: 1. The pt will demonstrate independent use of external memory tools to recall information necessary to complete personal/family responsibilities. 2. The pt will demonstrate independent use of internal memory strategies by recalling information of moderate complexity related to functional educational studies with 90% accuracy in order to return to school. 3. The pt will complete selective attention tasks of moderate complexity with 80% accuracy to improve skills necessary to return to school/ work. 4. Using speech articulation strategies as needed, the pt will exhibit no more than 3 episodes of dysfluent speech in a 5-min conversation in order to improve speech intelligibility and expressive communication skills necessary to return to school and work and to engage in social interactions. 5. Using word recall strategies as needed, the pt will exhibit no more than 3 episodes of WFDs in a 5-min conversation in order to expressive communication skills necessary to return to school and work and to engage in social interactions. Treatment Activities Memory & Orientation: The pt required extended time (>15 sec) to recall the day of the week, which she did correctly. She required verbal prompts from her mother to recall a major event that occurred the previous day. Education was provided RE memory function and associated attention skills and internal and external memory tools. The pt stated she uses a calendar and alarms on her phone to track and recall appts and other events. Recommended the pt keep a daily written journal to assist in recalling and tracking daily events, as both internal strategy and external tool. The pt stated she enjoys journaling, had started one but forgets to write in it. Recommended the pt establish a routine of journaling at a certain time of day, best to be when she is energetic, not at the end of the day for example. She was receptive to this. Educated the pt in use of a memory notebook by providing an example and discussing its intended uses. The pt was open to considering this, and a small notebook was provided to get her started. Communication: Discussed and recommended the pt establish hand signals to use with close communication partners, to indicate when the pt does and does not wish others to assist her with word recall and/or tracking her place when she's speaking. Discussed shared roles in communication, and the importance of the pt communicating to others her wants and needs, therapeutic strategies that she is attempting to use, and the importance of others to allow for opportunities for her to use them. Caregiver training was provided to the pt's mother in appropriate prompts/ cues that she could provide to the pt to assist her in word recall and tracking conversation without actually speaking for her and ways in which her mother could otherwise support Angelina and educate those who are close to her. Throughout the session, Angelina's mother was writing notes; therefore, the SENIOR SOFTWARE PROJECT MANAGER did not provide written information from this session. Assessment Patient Response to Treatment Excellent Rehab Potential Excellent Impairments Identified Attention,Auditory Comprehension,Cognitive- Linguistic Skills,Expressive Language,Fluency of Speech, Memory - Short Term,Memory - Working,Problem Solving, Reading Comprehension, Receptive Language,Written Expression Progress Towards Goals Good Progress Assessment of Overall Progress Improving Assessment of Improvement Both the pt and her mom were receptive to all education and recommendations provided. The pt did exhibit consistent moderate dysfluency mostly in the form of prolongations and blocking throughout the session; however they did not result in communication breakdowns. Once the pt required prompt for word recall, and once for recalling conversation topic so she could continue expressing herself. Over the course of treatment, the pt has been highly responsive to therapeutic intervention. She has benefited from use of pacing to reduce frequency and intensity of dysfluencies, but this has not eliminated them. She has demonstrated excellent carryover of communication and memory strategies and has been very well supported by her family. It is anticipated that her mother's presence today will be beneficial, as will her future involvement. Deficits continue for the pt, however, and some deficits such as memory and dysfluency appear to be worsening. Therefore, continued skilled intervention is medically necessary to improve the pt's skills and ability to communicate her wants/needs/ideas effectively in order to increase independence, improve quality of life, and return to work/ school. Reviewed with Patient Goals,Progress Being Made,Home Exercise Program Patient/Caregiver Understanding Excellent Plan Amount of Therapy Recommended 6 Months Frequency of Treatment Once a Week Length of Session 45 Minutes Therapeutic Contents Client Education,Cognitive- Linguistic Training,Expressive Language Training,Fluency, Home Exercise Program, Information Processing, Intelligibility,Reading Comprehension,Receptive Language Training,Return to School,Written Expression Provided Patient/Caregiver Instruction Home Exercise Program,Plan of Care,Questions/Concerns Therapy Recommendations Continue with Current Program
--- NOTE | 2020-06-06 17:35 | ST.OPTN ---
Visit Care Team Role Provider Type Christen Figueroa PA-C Primary Care Provider Non-Staff Address: [address] [place] [address], [address], [place], [address] Radhames Bullock MD Attending Provider Non-Staff Referring Provider Address: [address] [place] [address], [id number] SEWER DIGGER Treatment Note SEWER DIGGER Treatment Note Start: 02/15/20 13:31 Freq: Status: Active Protocol: Document 06/06/20 17:08 PATY (Rec: 06/06/20 17:34 PATY [id number]) Speech Pathology Treatment Note Session Time Visit Start Time 14:30 Visit Stop Time 15:15 Total Visit Minutes 45 Visit Information Visit Number 9 Plan of Care Dates 05/18/20 - 08/18/19 Insurance Information [employer] Setting Treatment Setting Outpatient Care Visit Type Note Type Progress Note Next Note Type Next Note Type Treatment Note General Information General Information Angelina is a now 30-year-old right hand dominant female with complicated medical presentation. She has h/o BCP for 13 years in setting of endometriosis; she had a fall in the shower in July of 2019 in which she hit her head and loss consciousness. 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 Angelina had to stop pursuing a masters in speech d /t recent medical events. She c/o fatigue, weakness, muscle 'spasms' of hands, primary left upper extremity numbness w/ laying down (either side and not dependent of positioning of elbow), visual and auditory sensitivities, difficulties w/ word finding, short term memory deficits, as well as difficulties w/ multitasking (which she previously struggled with, however, she was able to manage). Subjective Identification Type Name,ID Card Observations/Patient Presentation The pt arrived on time unaccompanied. She reported having gotten a puppy recently and the positive and challenging aspects that has brought into her life. She also informed that her insurance has approved STAA revascularization surgery at [facility] with Dr. Mcgee, neurosurgeon; date pending. Chief Complaint(s) Speech,Language,Cognitive Rehab Expectation/Goals: Patient Goals Improve fluency of speech, return to school Patient Knowledge/Awareness of SEWER DIGGER Role Excellent in Treatment Patient/Caregiver Compliance with Home Excellent Exercise Program Objective Short Term Goals 1. The pt will perform simple focused attention tasks with 90% accuracy to improve skills required to return to school/ work. GOAL MET 2. With clinician assistance, the pt will develop external memory tools (e.g., journal, memory notebook, alarms) to increase her ability to recall pertinent information in functional situations and increase independence. MAKING PROGRESS; CONTINUE GOAL 3. The pt will recall 3 or more internal memory strategies across 3 sessions to promote improved memory skills for functional tasks. CONTINUE GOAL 4. Using internal memory skills with min prompts, the pt will retell short stories presented orally with 80% accuracy across 3 tasks. MAKING PROGRESS; CONTINUE GOAL 5. The pt will demonstrate independent use of pacing board to reduce rate of speech and improve oral motor control necessary for fluent speech. GOAL MET 6. The pt will demonstrate understanding of word recall strategies (e.g., pausing, circumlocution and phonemic strategies) in picture description tasks to decrease word finding difficulties and improve expressive language skills. GOAL MET NEW GOALS: 5. Using relaxation techniques , the pt will complete picture description tasks with 75% fluent speech to increase ability to effectively communicate with others. 6. Upon episodes when the pt has lost her train of thought in oral expression, she will demonstrate ability to resume oral communication with min prompts in 80% of opportunities to avoid communication breakdowns. Caregiver training in prompting to be provided. Blister Packing Machine Tender Goals MAKING PROGRESS; CONTINUE ALL GOALS: 1. The pt will demonstrate independent use of external memory tools to recall information necessary to complete personal/family responsibilities. 2. The pt will demonstrate independent use of internal memory strategies by recalling information of moderate complexity related to functional educational studies with 90% accuracy in order to return to school. 3. The pt will complete selective attention tasks of moderate complexity with 80% accuracy to improve skills necessary to return to school/ work. 4. Using speech articulation strategies as needed, the pt will exhibit no more than 3 episodes of dysfluent speech in a 5-min conversation in order to improve speech intelligibility and expressive communication skills necessary to return to school and work and to engage in social interactions. 5. Using word recall strategies as needed, the pt will exhibit no more than 3 episodes of WFDs in a 5-min conversation in order to expressive communication skills necessary to return to school and work and to engage in social interactions. Treatment Activities Fluency: The pt participated in extensive conversation in today's session on a variety of topics including her new pet, her family's response to education/training provided to the pt and her mother at the last session, the impact this response has had on her, and on the STAMCA procedure and how she is feeling about it. The pt's speech was observed to be much more fluent when she spoke about her dog (min disfluencies) and when restating what the medical personnel had told her about the surgery procedure (no disfluencies) than when discussing topics of greater complexity and more directly related to her impairments. Skilled feedback was provided. The pt stated she felt julio and a flood of endorphins when talking about her dog and she desired to transfer her related ability to remain fluent to less positive conversation topics and partners. She stated her greatest disfluencies occur when she is talking to doctors . Recommended the pt create and practice scripts prior to conversations with MDs. Initiated training and will continue at next session. Word Recall & Expressive Language: Consulted w/ pt RE communication with her family RE WFDs. The pt reported successful use of gestures strategy with family and close friends to request or decline assistance from others in WFDs and when blocking occurs. She stated education provided at last session has better equipped both the pt and her family to communicate about and feel less anxiety about the pt's expressive speech challenges. She expressed gratitude. Memory/Orientation to time/ events: Collaborated with pt RE journaling to track and increase memory around daily events. The pt has incorporated journaling into morning schedule, which she states has created accountability to herself and, consequently,increased her attention and ability to recall envents the next morning. Recall of same events later in the day or longer has improved mildly but continues to be challenging. She stated she also has difficulty remember what conversations she has had with whom after ~1 hr or greater. Her family has been supportive and forgiving when she repeats herself, but the pt is bothered by this lack of recall. Will continue to target internal memory strategies for working and short term memory. Assessment Patient Response to Treatment Excellent Rehab Potential Excellent Impairments Identified Attention,Auditory Comprehension,Cognitive- Linguistic Skills,Expressive Language,Fluency of Speech, Memory - Short Term,Memory - Working,Problem Solving, Reading Comprehension, Receptive Language,Written Expression Progress Towards Goals Good Progress Assessment of Overall Progress Improving Assessment of Improvement The pt exhibited an interesting pattern with her speech fluency in conversations today, suggestive of emotional contribution. She was receptive to initial training of script therapy approach, which will be continued at next session. She is demonstrating excellent home practice and carryover of therapy recommendations and strategies, and her family has likewise been positively responsive to communication recommendations particularly around word finding difficulties and articulatory blocking. She is also benefitting from journaling as a means of increasing STM and orientation to daily events. Continues with memory deficits in areas of recall of conversations. Reviewed with Patient Goals,Progress Being Made,Home Exercise Program Patient/Caregiver Understanding Excellent Plan Frequency of Treatment Once a Week Length of Session 45 Minutes Treatment Emphasis Next Session Script training; memory notebook Therapeutic Contents Client Education,Cognitive- Linguistic Training,Expressive Language Training,Fluency, Home Exercise Program, Information Processing, Intelligibility,Reading Comprehension,Receptive Language Training,Return to School,Written Expression Provided Patient/Caregiver Instruction Home Exercise Program,Plan of Care,Questions/Concerns Therapy Recommendations Continue with Current Program
--- NOTE | 2020-06-20 16:24 | ST.OPTN ---
Visit Care Team Role Provider Type Christen Figueroa PA-C Primary Care Provider Non-Staff Address: [address] [place] [address], [address], [place], [address] Radhames Bullock MD Attending Provider Non-Staff Referring Provider Address: [address] [place] [address], [id number] CASE MANAGEMENT RN Treatment Note CASE MANAGEMENT RN Treatment Note Start: 02/15/20 13:31 Freq: Status: Active Protocol: Document 06/20/20 16:05 PATY (Rec: 06/20/20 16:24 PATY [id number]) Speech Pathology Treatment Note Session Time Visit Start Time 12:30 Visit Stop Time 13:20 Total Visit Minutes 50 Visit Information Visit Number 10 Plan of Care Dates 05/18/20 - 08/18/19 Insurance Information [employer] Setting Treatment Setting Outpatient Care Visit Type Note Type Progress Note Next Note Type Next Note Type Treatment Note General Information General Information Angelina is a now 30-year-old right hand dominant female with complicated medical presentation. She has h/o BCP for 13 years in setting of endometriosis; she had a fall in the shower in July of 2019 in which she hit her head and loss consciousness. 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 Angelina had to stop pursuing a masters in speech d /t recent medical events. She c/o fatigue, weakness, muscle 'spasms' of hands, primary left upper extremity numbness w/ laying down (either side and not dependent of positioning of elbow), visual and auditory sensitivities, difficulties w/ word finding, short term memory deficits, as well as difficulties w/ multitasking (which she previously struggled with, however, she was able to manage). Subjective Identification Type Name,ID Card Observations/Patient Presentation The pt arrived on time unaccompanied. She reported continued good management of communication with closest family and her boyfriend, stating they are very patient and responsive to hand signals to guide their assistance with her WFDs. She expressed frustration when talking with other friends as they are sometimes condescending in response to her needs, not responsive to her attempts to educate and communicate needs, particularly when she is tired and needs to leave a conversation. The pt also reported frequent difficulty with reading comprehension. Chief Complaint(s) Speech,Language,Cognitive Rehab Expectation/Goals: Patient Goals Improve fluency of speech, return to school Patient Knowledge/Awareness of CASE MANAGEMENT RN Role Excellent in Treatment Patient/Caregiver Compliance with Home Excellent Exercise Program Objective Short Term Goals 1. The pt will perform simple focused attention tasks with 90% accuracy to improve skills required to return to school/ work. GOAL MET 2. With clinician assistance, the pt will develop external memory tools (e.g., journal, memory notebook, alarms) to increase her ability to recall pertinent information in functional situations and increase independence. MAKING PROGRESS; CONTINUE GOAL 3. The pt will recall 3 or more internal memory strategies across 3 sessions to promote improved memory skills for functional tasks. CONTINUE GOAL 4. Using internal memory skills with min prompts, the pt will retell short stories presented orally with 80% accuracy across 3 tasks. MAKING PROGRESS; CONTINUE GOAL 5. The pt will demonstrate independent use of pacing board to reduce rate of speech and improve oral motor control necessary for fluent speech. GOAL MET 6. The pt will demonstrate understanding of word recall strategies (e.g., pausing, circumlocution and phonemic strategies) in picture description tasks to decrease word finding difficulties and improve expressive language skills. GOAL MET NEW GOALS: 5. Using relaxation techniques , the pt will complete picture description tasks with 75% fluent speech to increase ability to effectively communicate with others. 6. Upon episodes when the pt has lost her train of thought in oral expression, she will demonstrate ability to resume oral communication with min prompts in 80% of opportunities to avoid communication breakdowns. Caregiver training in prompting to be provided. Halfway Goals MAKING PROGRESS; CONTINUE ALL GOALS: 1. The pt will demonstrate independent use of external memory tools to recall information necessary to complete personal/family responsibilities. 2. The pt will demonstrate independent use of internal memory strategies by recalling information of moderate complexity related to functional educational studies with 90% accuracy in order to return to school. 3. The pt will complete selective attention tasks of moderate complexity with 80% accuracy to improve skills necessary to return to school/ work. 4. Using speech articulation strategies as needed, the pt will exhibit no more than 3 episodes of dysfluent speech in a 5-min conversation in order to improve speech intelligibility and expressive communication skills necessary to return to school and work and to engage in social interactions. 5. Using word recall strategies as needed, the pt will exhibit no more than 3 episodes of WFDs in a 5-min conversation in order to expressive communication skills necessary to return to school and work and to engage in social interactions. Treatment Activities Using Script Therapy, educated and trained pt in use of Go- To Statements to be used in repetitive problematic situations, as described above . The pt identified 4 troublesome situations. CASE MANAGEMENT RN offered examples of go-to statements that would assist the pt in communicating her needs in those moments. The pt was responsive to these suggestions and agreed that they could be effective both in communication and in reducing her anxiety in those situations. A worksheet was provided for the pt to continue identifying other situations in which scripts could be helpful and to create and use those scripts as home practice. Consulted with pt RE reading comprehension difficulties. It appears her greatest challenges are with following written instructions, such as how to complete insurance forms and how to train her puppy following certain procedures. Asked the pt to bring examples of such writing with her at next session for further assessment; she agreed . Finally, in conversations RE challenging situations, the pt remarked that she has observed how important eye contact is to her, especially when she is having fluency or word recall difficulties. She expressed feeling strongly connected and validated by those who patiently maintain eye contact with her as she struggles and feels disregarded when others break eye contact, as if they are uncomfortable or impatient. She stated that it helps her to close her eyes in order to reduce visual distractions when having difficulty expressing herself and expressed concern that such secondary behavior may be pragmatically awkward. Skilled feedback provided and agreed to monitor this behavior together. Assessment Patient Response to Treatment Excellent Rehab Potential Excellent Impairments Identified Attention,Auditory Comprehension,Cognitive- Linguistic Skills,Expressive Language,Fluency of Speech, Memory - Short Term,Memory - Working,Problem Solving, Reading Comprehension, Receptive Language,Written Expression Progress Towards Goals Good Progress Assessment of Overall Progress Improving Assessment of Improvement The pt continues to exhibit excellent insight into her deficits, their impact on her relationships and abilities/ desires to communicate with others, and body language and pragmatic behaviors of both herself and others and the impact that also can have on communication. She was receptive to use of script therapy and go-to statements to aid in managing difficult situations, communicating her needs and educating others. Difficulties with following written instructions have emerged and will be more fully assessed at next session. The pt continues to fatigue easily and quickly in conversations and busy environments. She manages this with frequent rests and supportive family. Reviewed with Patient Goals,Progress Being Made,Home Exercise Program Patient/Caregiver Understanding Excellent Plan Frequency of Treatment Once a Week Length of Session 45 Minutes Treatment Emphasis Next Session Script training; memory notebook Therapeutic Contents Client Education,Cognitive- Linguistic Training,Expressive Language Training,Fluency, Home Exercise Program, Information Processing, Intelligibility,Reading Comprehension,Receptive Language Training,Return to School,Written Expression Provided Patient/Caregiver Instruction Home Exercise Program,Plan of Care,Questions/Concerns Therapy Recommendations Continue with Current Program
--- NOTE | 2020-06-29 17:22 | ST.OPTN ---
Visit Care Team Role Provider Type Christen Figueroa PA-C Primary Care Provider Non-Staff Address: [address] [place] [address], [address], [place], [address] Radhames Bullock MD Attending Provider Non-Staff Referring Provider Address: [address] [place] [address], [id number] [employer] Treatment Note [employer] Treatment Note Start: 02/15/20 13:31 Freq: Status: Active Protocol: Document 06/28/20 18:03 PATY (Rec: 06/28/20 18:03 PATY [id number]) Speech Pathology Treatment Note Session Time Visit Start Time 14:30 Visit Stop Time 15:30 Total Visit Minutes 60 Visit Information Visit Number 11 Plan of Care Dates 05/18/20 - 08/18/19 Insurance Information [employer] Setting Treatment Setting Outpatient Care Visit Type Note Type Progress Note Next Note Type Next Note Type Treatment Note General Information General Information Angelina is a now 30-year-old right hand dominant female with complicated medical presentation. She has h/o BCP for 13 years in setting of endometriosis; she had a fall in the shower in July of 2019 in which she hit her head and loss consciousness. 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 Angelina had to stop pursuing a masters in speech d /t recent medical events. She c/o fatigue, weakness, muscle 'spasms' of hands, primary left upper extremity numbness w/ laying down (either side and not dependent of positioning of elbow), visual and auditory sensitivities, difficulties w/ word finding, short term memory deficits, as well as difficulties w/ multitasking (which she previously struggled with, however, she was able to manage). Subjective Identification Type Name,ID Card Observations/Patient Presentation The pt arrived on time unaccompanied. She reported having successfully employed some of the strategies discussed at last session, including managing time and energy/fatigue by setting time limits to visits with others at the start of the visit and by communicating her feelings needs directly with a friend that had been condescending toward her. She reported her mother is having difficulty educating family about the pt' s injuries when the pt has short normal conversations with these family members. Subsequently, the family members tell her mother that she is exaggerating the pt's deficits and that the pt seems fine to them, which is upsetting to her mother. Chief Complaint(s) Speech,Language,Cognitive Rehab Expectation/Goals: Patient Goals Improve fluency of speech, return to school Patient Knowledge/Awareness of [employer] Role Excellent in Treatment Patient/Caregiver Compliance with Home Excellent Exercise Program Objective Short Term Goals 1. The pt will perform simple focused attention tasks with 90% accuracy to improve skills required to return to school/ work. GOAL MET 2. With clinician assistance, the pt will develop external memory tools (e.g., journal, memory notebook, alarms) to increase her ability to recall pertinent information in functional situations and increase independence. MAKING PROGRESS; CONTINUE GOAL 3. The pt will recall 3 or more internal memory strategies across 3 sessions to promote improved memory skills for functional tasks. CONTINUE GOAL 4. Using internal memory skills with min prompts, the pt will retell short stories presented orally with 80% accuracy across 3 tasks. MAKING PROGRESS; CONTINUE GOAL 5. The pt will demonstrate independent use of pacing board to reduce rate of speech and improve oral motor control necessary for fluent speech. GOAL MET 6. The pt will demonstrate understanding of word recall strategies (e.g., pausing, circumlocution and phonemic strategies) in picture description tasks to decrease word finding difficulties and improve expressive language skills. GOAL MET NEW GOALS: 5. Using relaxation techniques , the pt will complete picture description tasks with 75% fluent speech to increase ability to effectively communicate with others. 6. Upon episodes when the pt has lost her train of thought in oral expression, she will demonstrate ability to resume oral communication with min prompts in 80% of opportunities to avoid communication breakdowns. Caregiver training in prompting to be provided. Detention Goals MAKING PROGRESS; CONTINUE ALL GOALS: 1. The pt will demonstrate independent use of external memory tools to recall information necessary to complete personal/family responsibilities. 2. The pt will demonstrate independent use of internal memory strategies by recalling information of moderate complexity related to functional educational studies with 90% accuracy in order to return to school. 3. The pt will complete selective attention tasks of moderate complexity with 80% accuracy to improve skills necessary to return to school/ work. 4. Using speech articulation strategies as needed, the pt will exhibit no more than 3 episodes of dysfluent speech in a 5-min conversation in order to improve speech intelligibility and expressive communication skills necessary to return to school and work and to engage in social interactions. 5. Using word recall strategies as needed, the pt will exhibit no more than 3 episodes of WFDs in a 5-min conversation in order to expressive communication skills necessary to return to school and work and to engage in social interactions. Treatment Activities Continued training script therapy using go-to statements and the pt's mother's situation of being frustrated with extended family. The pt informed that the situation is complicated by cultural expectations that restrict her mother to communicate directly to her elders, which may be interpreted as disrespectful. Collaboratively, the pt and [employer] created statements that accurately communicated the pt 's cognitive strengths and deficits while validating family members' observations. Words were carefully chosen to maintain respect. The pt expressed pleasure at having such statements and was eager to discuss with her mother and subsequently educate extended family honestly yet respectfully. Additionally, the pt identified situations in which conversation partners are overly verbose and the pt has difficulty understanding the ultimate point of the message. Pt and [employer] developed scripts that would aid the pt in these situations, including when meeting with doctors. The pt wrote all of the scripts in her journal, which she is carrying with her with much more consistency. Assessment Patient Response to Treatment Excellent Rehab Potential Excellent Impairments Identified Attention,Auditory Comprehension,Cognitive- Linguistic Skills,Expressive Language,Fluency of Speech, Memory - Short Term,Memory - Working,Problem Solving, Reading Comprehension, Receptive Language,Written Expression Progress Towards Goals Good Progress Assessment of Overall Progress Improving Assessment of Improvement The pt is making excellent progress with script therapy to manage difficult and often fatiguing situations and conversations. She stated that scripts have been very helpful to her, and she was appreciative of further development of scripts to address additional targets, including communicating about her medical care and educating and maintaining relationships with family, particularly in light of cultural sensitivities. Reviewed with Patient Goals,Progress Being Made,Home Exercise Program Patient/Caregiver Understanding Excellent Plan Frequency of Treatment Once a Week Length of Session 45 Minutes Treatment Emphasis Next Session Reading comprehension/recall Therapeutic Contents Client Education,Cognitive- Linguistic Training,Expressive Language Training,Fluency, Home Exercise Program, Information Processing, Intelligibility,Reading Comprehension,Receptive Language Training,Return to School,Written Expression Provided Patient/Caregiver Instruction Home Exercise Program,Plan of Care,Questions/Concerns Therapy Recommendations Continue with Current Program
--- NOTE | 2020-07-11 17:48 | ST.OPTN ---
Visit Care Team Role Provider Type Christen Figueroa PA-C Primary Care Provider Non-Staff Address: [address] [place] [address], [address], [place], [address] Radhames Bullock MD Attending Provider Non-Staff Referring Provider Address: [address] [place] [address], [address] FORGING PRESS OPERATOR Treatment Note FORGING PRESS OPERATOR Treatment Note Start: 02/15/20 13:31 Freq: Status: Active Protocol: Document 07/11/20 17:23 PATY (Rec: 07/11/20 17:48 PATY [id number]) Speech Pathology Treatment Note Session Time Visit Start Time 12:30 Visit Stop Time 12:20 Total Visit Minutes 50 Visit Information Visit Number 12 Plan of Care Dates 05/18/20 - 08/18/19 Insurance Information [employer] Setting Treatment Setting Outpatient Care Visit Type Note Type Progress Note Next Note Type Next Note Type Re-Evaluation General Information General Information Angelina is a now 30-year-old right hand dominant female with complicated medical presentation. She has h/o BCP for 13 years in setting of endometriosis; she had a fall in the shower in July of 2019 in which she hit her head and loss consciousness. 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 Angelina had to stop pursuing a masters in speech d /t recent medical events. She c/o fatigue, weakness, muscle 'spasms' of hands, primary left upper extremity numbness w/ laying down (either side and not dependent of positioning of elbow), visual and auditory sensitivities, difficulties w/ word finding, short term memory deficits, as well as difficulties w/ multitasking (which she previously struggled with, however, she was able to manage). Subjective Observations/Patient Presentation Pt arrived on time and informed that her surgery has been scheduled for Jul 27 in [place]. She will be leaving Jul [address] to drive there. She expressed concerns about her family reactions to effects of surgery and anesthesia and also her own ability to communicate immediately following surgery, as she has a history of difficulty with expressive Indian after anesthesia. She reverts to Farsi, although she is able to understand the Indian that is spoken to her. She stated that she carries cards with her to give to hospital staff notifying them of this patterned response; however, her experience is that not all hospital staff become informed and/or believe her until it happens. Chief Complaint(s) Speech,Language,Cognitive Rehab Expectation/Goals: Patient Goals Improve fluency of speech, return to school Patient Knowledge/Awareness of FORGING PRESS OPERATOR Role Excellent in Treatment Patient/Caregiver Compliance with Home Excellent Exercise Program Objective Short Term Goals 1. The pt will perform simple focused attention tasks with 90% accuracy to improve skills required to return to school/ work. GOAL MET 2. With clinician assistance, the pt will develop external memory tools (e.g., journal, memory notebook, alarms) to increase her ability to recall pertinent information in functional situations and increase independence. MAKING PROGRESS; CONTINUE GOAL 3. The pt will recall 3 or more internal memory strategies across 3 sessions to promote improved memory skills for functional tasks. CONTINUE GOAL 4. Using internal memory skills with min prompts, the pt will retell short stories presented orally with 80% accuracy across 3 tasks. MAKING PROGRESS; CONTINUE GOAL 5. The pt will demonstrate independent use of pacing board to reduce rate of speech and improve oral motor control necessary for fluent speech. GOAL MET 6. The pt will demonstrate understanding of word recall strategies (e.g., pausing, circumlocution and phonemic strategies) in picture description tasks to decrease word finding difficulties and improve expressive language skills. GOAL MET NEW GOALS: 5. Using relaxation techniques , the pt will complete picture description tasks with 75% fluent speech to increase ability to effectively communicate with others. 6. Upon episodes when the pt has lost her train of thought in oral expression, she will demonstrate ability to resume oral communication with min prompts in 80% of opportunities to avoid communication breakdowns. Caregiver training in prompting to be provided. Senior Care Goals MAKING PROGRESS; CONTINUE ALL GOALS: 1. The pt will demonstrate independent use of external memory tools to recall information necessary to complete personal/family responsibilities. 2. The pt will demonstrate independent use of internal memory strategies by recalling information of moderate complexity related to functional educational studies with 90% accuracy in order to return to school. 3. The pt will complete selective attention tasks of moderate complexity with 80% accuracy to improve skills necessary to return to school/ work. 4. Using speech articulation strategies as needed, the pt will exhibit no more than 3 episodes of dysfluent speech in a 5-min conversation in order to improve speech intelligibility and expressive communication skills necessary to return to school and work and to engage in social interactions. 5. Using word recall strategies as needed, the pt will exhibit no more than 3 episodes of WFDs in a 5-min conversation in order to expressive communication skills necessary to return to school and work and to engage in social interactions. Treatment Activities Developed communication tools for pt to use during hospital stay in the event she is unable to verbally communicate in Indian with staff. Tools included a communication board designed for inpatient care and index cards on which she could provide written information about her condition, translations of Farsi words to Indian, etc. In response to the pt's questions, provided education RE FORGING PRESS OPERATOR and translation services available in acute care settings. This FORGING PRESS OPERATOR's business card was provided in the event a hospital FORGING PRESS OPERATOR or other personnel wished to discuss her care with regard to baseline status. All questions were answered and written information RE potential effects of anesthesia on cognitive communication skills was provided both for pt and family education. Assessment Patient Response to Treatment Excellent Rehab Potential Excellent Impairments Identified Attention,Auditory Comprehension,Cognitive- Linguistic Skills,Expressive Language,Fluency of Speech, Memory - Short Term,Memory - Working,Problem Solving, Reading Comprehension, Receptive Language,Written Expression Progress Towards Goals Good Progress Assessment of Overall Progress Improving Assessment of Improvement The pt reported feeling ready for and optimistic about her surgery. All questions were answered and she was collaborative in developing communication tools that she can use during her hospital stay, should she have obstacles in expressing herself. She was able to identify potential obstacles based on previous hospital experiences, current likely COVID-19 restrictions for visitors and family support, and for advocating for FORGING PRESS OPERATOR and interprettor services. Intermitten moderate dysfluencies were observed in her speech today, consistent with past speech production. No deficits in expressive or receptive language skills perceived. No cognitive communication deficits perceived in conversations today related to these current medical events. Reviewed with Patient Goals,Progress Being Made,Home Exercise Program Patient/Caregiver Understanding Excellent Plan Comment F/U after surgery (08/09/20) Treatment Emphasis Next Session Reassessment s/p surgery Therapeutic Contents Client Education,Cognitive- Linguistic Training,Expressive Language Training,Fluency, Home Exercise Program, Information Processing, Intelligibility,Reading Comprehension,Receptive Language Training,Return to School,Written Expression Therapy Recommendations Continue with Current Program
--- NOTE | 2020-08-15 15:21 | ST.OPDS ---
Visit Care Team Role Provider Type Christen Figueroa PA-C Primary Care Provider Non-Staff Address: [address] [place] [address], [address], [place], [address] Radhames Bullock MD Attending Provider Non-Staff Referring Provider Address: [address] [place] [address], [address] PULMONARY CARE NURSE Treatment Note PULMONARY CARE NURSE Treatment Note Start: 02/15/20 13:31 Freq: Status: Active Protocol: Document 08/15/20 15:19 PATY (Rec: 08/15/20 15:21 PATY [id number]) Speech Pathology Treatment Note Visit Information Plan of Care Dates 05/18/20 - 08/18/19 Insurance Information [employer] Setting Treatment Setting Outpatient Care Visit Type Note Type Discharge Summary General Information General Information Angelina is a now 30-year-old right hand dominant female with complicated medical presentation. She has h/o BCP for 13 years in setting of endometriosis; she had a fall in the shower in July of 2019 in which she hit her head and loss consciousness. 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 Angelina had to stop pursuing a masters in speech d /t recent medical events. She c/o fatigue, weakness, muscle 'spasms' of hands, primary left upper extremity numbness w/ laying down (either side and not dependent of positioning of elbow), visual and auditory sensitivities, difficulties w/ word finding, short term memory deficits, as well as difficulties w/ multitasking (which she previously struggled with, however, she was able to manage). Subjective Observations/Patient Presentation The pt was last seen for therapy 07/11/20 prior to traveling to [place] for brain surgery for Jarrett Jarrett. Her chart will be discharged at this time and reopened with new orders when the pt returns . Chief Complaint(s) Speech,Language,Cognitive Objective Short Term Goals 1. The pt will perform simple focused attention tasks with 90% accuracy to improve skills required to return to school/ work. GOAL MET 2. With clinician assistance, the pt will develop external memory tools (e.g., journal, memory notebook, alarms) to increase her ability to recall pertinent information in functional situations and increase independence. MAKING PROGRESS; CONTINUE GOAL 3. The pt will recall 3 or more internal memory strategies across 3 sessions to promote improved memory skills for functional tasks. CONTINUE GOAL 4. Using internal memory skills with min prompts, the pt will retell short stories presented orally with 80% accuracy across 3 tasks. MAKING PROGRESS; CONTINUE GOAL 5. The pt will demonstrate independent use of pacing board to reduce rate of speech and improve oral motor control necessary for fluent speech. GOAL MET 6. The pt will demonstrate understanding of word recall strategies (e.g., pausing, circumlocution and phonemic strategies) in picture description tasks to decrease word finding difficulties and improve expressive language skills. GOAL MET NEW GOALS: 5. Using relaxation techniques , the pt will complete picture description tasks with 75% fluent speech to increase ability to effectively communicate with others. 6. Upon episodes when the pt has lost her train of thought in oral expression, she will demonstrate ability to resume oral communication with min prompts in 80% of opportunities to avoid communication breakdowns. Caregiver training in prompting to be provided. Pharmacy Clerk Goals MAKING PROGRESS; CONTINUE ALL GOALS: 1. The pt will demonstrate independent use of external memory tools to recall information necessary to complete personal/family responsibilities. 2. The pt will demonstrate independent use of internal memory strategies by recalling information of moderate complexity related to functional educational studies with 90% accuracy in order to return to school. 3. The pt will complete selective attention tasks of moderate complexity with 80% accuracy to improve skills necessary to return to school/ work. 4. Using speech articulation strategies as needed, the pt will exhibit no more than 3 episodes of dysfluent speech in a 5-min conversation in order to improve speech intelligibility and expressive communication skills necessary to return to school and work and to engage in social interactions. 5. Using word recall strategies as needed, the pt will exhibit no more than 3 episodes of WFDs in a 5-min conversation in order to expressive communication skills necessary to return to school and work and to engage in social interactions. Assessment Impairments Identified Attention,Auditory Comprehension,Cognitive- Linguistic Skills,Expressive Language,Fluency of Speech, Memory - Short Term,Memory - Working,Problem Solving, Reading Comprehension, Receptive Language,Written Expression Progress Towards Goals Good Progress Plan Therapy Recommendations Discharge from Speech Therapy
== END 2020-11-02 12:12 | disposition home or self-care (01) ==
LOC: SP 12:30
PROVIDERS: PCP Physician Assistant; Referring Provider Psychiatry & Neurology Neurology; Visit Provider Psychiatry & Neurology Neurology
DX: I69.319 Unspecified symptoms and signs involving cognitive functions following cerebral infarction (principal); I69.30 Unspecified sequelae of cerebral infarction
CPT/HCPCS: 92507; 92523; 97129; 97130

== ENCOUNTER 2020-08-29 03:52 | Emergency (ER) | payer OTHER, MEDICAID, SELFPAY ==
[2020-08-23 12:13] VITALS: PULSE 77
[2020-08-29] VITALS (11 sets, daily range): BP systolic 122–148; BP diastolic 75–100; PULSE 88–117; RESP 17; TEMP 36.6; O2SAT 93–99; BMI 21.2
--- NOTE | 2020-08-29 04:19 | ED.NAVMDI ---
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 She actually had surgery by a specialist at [facility] in July. She was told is it is typical to have headaches and vomiting afterwards for up to 6 months. She states that she is always having a headache but is currently worse and she has been vomiting since 5:00 p.m.. She did have 3 loose bowel movements but not diarrhea. She denies any abdominal pain. Still feeling nauseous. Her headache is worse with light and noise. She has no new weakness numbness or tingling. She does have left leg weakness secondary to her stroke. She has not had any fever chills she has no visual changes. MD complaint: nausea and vomiting Onset (ago): hour(s) Related Data Home Medications Medication Instructions Recorded Confirmed clotrimazole BID #0 05/18/16 diphenhydramine HCl [Benadryl 1 tab PO BID #0 05/18/16 Allergy] hydrocortisone #0 05/18/16 Previous Rx's Medication Instructions Recorded cephalexin [Keflex] 500 mg PO Q12H #14 cap 05/18/16 prednisone 0 PO QDAY #7 tab 05/18/16 fluticasone propionate [Children's 1 spray NASAL DAILY PRN #18.2 ml 07/19/19 Flonase Allergy Rlf] metoclopramide HCl [Reglan] 10 mg PO Q6H PRN #10 tab 08/29/20 Allergies Allergy/AdvReac Type Severity Reaction Status Date / Time No Known Drug Allergies Allergy Verified 07/19/19 11:41 Review of Systems Review of Systems ROS Unobtainable: All systems reviewed & are unremarkable except as noted in HPI and below Constitutional Constitutional: Denies chills, Denies fever(s), Reports headache(s), Denies lethargy and Denies weakness ENT Ears, Nose, Mouth, and Throat: Reports headache(s) Cardiovascular Cardiovascular: Denies chest pain, Denies irregular heart rhythm, Denies lightheadedness, Denies palpitations, Denies dyspnea, Denies dyspnea on exertion and Denies orthopnea Respiratory Respiratory: Denies cough, Denies dyspnea, Denies dyspnea on exertion and Denies wheezing Gastrointestinal Gastrointestinal: Reports as per HPI Musculoskeletal Musculoskeletal: Denies back pain, Denies myalgias and Denies numbness Integumentary/Breasts Skin/Breast: Denies pruritus, Denies erythema, Denies rash and Denies wounds Neurologic Neurologic: Reports as per HPI, Reports headache(s), Denies numbness and Denies weakness Endocrine Endocrine: Denies palpitations Allergic/Immunologic Allergic/Immunologic: Denies wheezing Patient History Medical History (Updated 08/29/20 @ 06:45 by Nel Cazares DO) Endometriosis Moyamoya Surgical History (Updated 07/19/19 @ 11:26 by Crystal Del Rio DO) H/O ureter repair Social History Smoking Status: Never smoker Smoking Status: Never smoker alcohol intake frequency: other Substance Use Type: does not use Exam Initial Vital Signs Initial Vital Signs: Vital Signs Pulse Rate 117 H 08/29/20 03:57 Blood Pressure 134/100 H 08/29/20 03:57 GENERAL: Thin young 30 year old female appears to not feel well HEENT: Head atraumatic,EOMI, pupils reactive, face symmetric, moist mucous membranes CARDIOVASCULAR: Regular rate and rhythm without murmurs, rubs or gallops. RESPIRATORY: Breath sounds equal bilaterally, no wheezes rales or rhonchi. ABDOMEN: Soft, nontender. Normoactive bowel sounds all 4 quadrants. No guarding or rebound. EXTREMITIES: Normal range of motion, no clubbing or edema. Neurovascularly intact NEUROLOGICAL: Alert and oriented x4.Normal gait and speech. Cranial nerves II through XII grossly intact. Sling Operator strength equal bilaterally SKIN: Warm, dry, no laceration, no petechiae, no rashes or lesions. Course Orders Ordered: ED Orders 08/29/20 04:15 Complete Blood Count AUTO DIFF Stat Comprehensive Metabolic Panel Stat Lipase Stat Test Serum,Qual Stat 08/29/20 04:26 CT head/brain wo con Stat Discontinued Medications Sodium Chloride (Normal Saline 0.9%) 1,000 mls @ 1,000 mls/hr IV BOLUS ONE Stop: 08/29/20 05:21 Last Infusion: 08/29/20 05:34 Dose: 0 mls/hr Documented by: Admin: 08/29/20 04:26 Dose: 1,000 mls/hr Documented by: JOSH Sodium Chloride (Normal Saline 0.9%) 1,000 mls @ 1,000 mls/hr IV BOLUS ONE Stop: 08/29/20 05:25 Last Admin: 08/29/20 05:34 Dose: 1,000 mls/hr Documented by: JOSH Ketorolac Tromethamine (Ketorolac 60 Mg/2 Ml Vial) 30 mg IV NOW ONE Stop: 08/29/20 05:13 Last Admin: 08/29/20 05:34 Dose: 30 mg Documented by: JOSH Metoclopramide HCl (Metoclopramide 10 Mg/2 Ml Inj) 10 mg IV NOW ONE Stop: 08/29/20 05:31 Last Admin: 08/29/20 05:34 Dose: 10 mg Documented by: JOSH Ondansetron HCl (Ondansetron 4 Mg/2 Ml Inj) 4 mg IV NOW ONE Stop: 08/29/20 04:22 Last Admin: 08/29/20 04:26 Dose: 4 mg Documented by: JOSH Ondansetron HCl (Ondansetron 4 Mg/2 Ml Inj) 4 mg IV NOW ONE Stop: 08/29/20 05:06 Last Admin: 08/29/20 05:09 Dose: 4 mg Documented by: KEITH Vital Signs Vital signs: Vital Signs - 8 hr 08/29/20 03:57 08/29/20 04:00 08/29/20 04:03 Temperature 97.8 F Pulse Rate 117 H 99 H 93 H Respiratory Rate 17 Blood Pressure 134/100 H 134/100 H Pulse Oximetry 93 98 08/29/20 04:09 08/29/20 04:21 08/29/20 04:30 Temperature Pulse Rate 89 Respiratory Rate Blood Pressure 148/96 H 131/87 Pulse Oximetry 98 99 08/29/20 05:00 08/29/20 05:30 08/29/20 06:00 Temperature Pulse Rate 91 H 91 H 88 Respiratory Rate Blood Pressure 133/89 129/87 122/80 Pulse Oximetry 99 99 97 08/29/20 06:30 08/29/20 07:00 Temperature Pulse Rate 95 H 89 Respiratory Rate Blood Pressure 126/75 122/82 Pulse Oximetry 98 98 MDM - Nausea/Vomiting/Diarrhea Lab Data Attestation: I reviewed the patient's lab results. Result diagrams: 08/29/20 04:15 08/29/20 04:15 Labs: Lab Results 08/29/20 08/29/20 08/29/20 Range/Units 04:15 04:15 04:15 WBC 5.8 (4.5-11.0) X10^3/uL RBC 4.50 (4.0-5.2) X10^6/uL Hgb 13.0 (12.0-16.0) g/dL Hct 38.8 (36-46) % MCV 86.2 (80-100) fL MCH 28.8 (26-34) PG MCHC 33.4 (30-36) % RDW 12.5 (11.6-14.8) % Plt Count 209 (150-400) X10^3/uL Neut % (Auto) 63.0 (50-75) % Lymph % (Auto) 28.0 (25-40) % Pickett % (Auto) 6.5 (3-14) % Eos % (Auto) 2.2 (2-4) % Baso % (Auto) 0.3 (0-2) % Neut # (Auto) 3700 (2125-8932) /uL Lymph # (Auto) 1600 (6736-0801) /uL Pickett # (Auto) 400 (0-900) /uL Eos # (Auto) 100 (0-450) /uL Baso # (Auto) 0 (0-100) /uL Sodium 136 L (137-145) mmol/L Potassium 3.8 (3.4-5.1) mmol/L Chloride 103 (98-107) mmol/L Carbon Dioxide 25 (22-32) mmol/L BUN 8 (7-17) mg/dL Creatinine 0.59 (0.52-1.04) mg/dL Estimated GFR > 60.0 (>60) mL/min BUN/Creatinine Ratio 13.6 (6-22) Glucose 115 H (70-100) mg/dL Calcium 9.9 (8.4-10.2) mg/dL Total Bilirubin 0.4 (0.2-1.3) mg/dL AST 39 H (14-36) IU/L ALT 26 (<35) IU/L Alkaline Phosphatase 122 (38-126) U/L Total Protein 8.5 H (6.3-8.2) g/dL Albumin 4.7 (3.5-5.0) g/dL Globulin 3.8 (1.7-4.1) g/dL Albumin/Globulin Ratio 1.2 (1.0-2.8) Lipase 72 (23-300) U/L Serum , Qual Negative (Negative) Imaging Data CT scan - head: Radiologist's Impression: Preliminary report: Expected postoperative appearance no acute intracranial abnormality MDM Narrative Medical decision making narrative: The patient has no new focal deficits. She has some loose stool and then multiple episodes of vomiting. Head CT did not show any abnormality at this time possible gastroenteritis. Patient has request that as call her neurosurgeon Dr. Randall [phone], which I have and left a message. At this time patient is tolerating water she has had 2 doses of Zofran but Reglan seemed to help her the most, which she apparently is already on. She has no abdominal pain. At this time I see no need for any abdominal imaging. Discharge Plan Departure Patient Disposition: Home Clinical Impression: Gastroenteritis Instructions: DI for Viral Gastroenteritis -- Adult Activity Restrictions/Additional Instructions: 1) You have been diagnosed with gastroenteritis 2) What to do: Drink frequent but small amounts of fluids. I recommend Gatorade or a Gatorade-like product, as it has small amounts of sugar and salts that improve fluid retention. 3) Take medications as directed Reglan 10 mg every 6 hours only if needed for nausea or vomiting--> [facility] 4) Follow up with your primary care provider in 2-3 days [and follow up with ortho, urology etc] 5) Return to ER if you should have any new or worsening symptoms such as, unable to hold down fluids despite use of anti-nausea medications and the small volume oral rehydration strategy. Prescriptions: New metoclopramide HCl [Reglan] 10 mg tablet 10 mg PO Q6H PRN (Reason: nausea and vomiting) Qty: 10 RF: 0 No Action diphenhydramine HCl [Benadryl Allergy] 25 MG tablet 1 tab PO BID Qty: 0 RF: 0 clotrimazole 1 % cream BID Qty: 0 RF: 0 hydrocortisone 0.5 % ointment Qty: 0 RF: 0 prednisone 20 MG tablet 0 PO QDAY Qty: 7 RF: 0 cephalexin [Keflex] 500 MG capsule 500 mg PO Q12H Qty: 14 RF: 0 fluticasone propionate [Children's Flonase Allergy Rlf] 50 mcg/actuation spray,suspension 1 spray NASAL DAILY PRN (Reason: nasal congestion) Qty: 18.2 RF: 0 Referrals: Christen Figueroa PA-C [Primary Care Provider] -
[2020-08-29] MEDS: ONDANSETRON 4 MG/2 ML INJ IV ×2 (04:26→05:09)
[2020-08-29] MEDS: SODIUM CHLORIDE 0.9% 1,000 ML 1000 ML IV ×2 (04:26→05:34)
--- NOTE | 2020-08-29 04:26 | DI.CT.S_ITS ---
PROCEDURE: CT HEAD/BRAIN WO CON INDICATIONS: moyamoya surgery now ETIENNE and vomit TECHNIQUE: Noncontrast 4.5 mm thick angled axial sections acquired from the foramen magnum to the vertex, with coronal and sagittal reformats. For radiation dose reduction, the following was used: automated exposure control, adjustment of mA and/or kV according to patient size. COMPARISON: [facility], CT, CT HEAD/BRAIN WO CON, 07/26/2019, 20:51. FINDINGS: Image quality: Excellent. CSF spaces: Basal cisterns are patent. No extra-axial fluid collections. Ventricles are normal in size and shape. Brain: Postsurgical right frontal craniotomy changes are noted. There is slight appearance of hyperdensity deep to the craniotomy flap. Skull and face: Calvarium and visualized facial bones are intact, without suspicious lesions. Sinuses: Visualized sinuses and mastoids are clear. IMPRESSION: 1. Right frontal craniotomy changes. Small focus of increased density is noted deep to the cranial flap. This is suspected to be call center representative of a small amount of postoperative hemorrhage. Recommend correlation to interval since surgery. If time frame is greater than expected for residual postoperative change, new focus of hemorrhage cannot be excluded. The above findings are concordant with preliminary report. Dictated by: Jocy Caban M.D. on 08/29/2020 at 7:33 Approved by: Jocy Caban M.D. on 08/29/2020 at 7:36
[2020-08-29 04:40] LABS: Add Manual Diff / Slide Review NO; Basophils Absolute Auto 0 /uL (0-100); Basophils Percent Auto 0.3 % (0-2); Eosinophils Absolute Auto 100 /uL (0-450); Eosinophils Percent Auto 2.2 % (2-4); Hematocrit 38.8 % (36-46); Lymphocytes Absolute Auto 1600 /uL (1100-4500); Mean Corpuscular HGB Conc 33.4 % (30-36); Mean Corpuscular Hemoglobin 28.8 PG (26-34); Mean Corpuscular Volume 86.2 fL (80-100); Monocytes Absolute Auto 400 /uL (0-900); Monocytes Percent Auto 6.5 % (3-14); Neutrophils Absolute Auto 3700 /uL (1500-7000); Platelet Count 209 X10^3/uL (150-400); Red Cell Distribution Width 12.5 % (11.6-14.8); White Blood Cell Count 5.8 X10^3/uL (4.5-11.0)
[2020-08-29 04:42] LABS: Pregnancy Test Serum,Qual Negative (Negative)
[2020-08-29 04:46] LABS: Alanine Aminotransferase 26 IU/L (<35); Albumin 4.7 g/dL (3.5-5.0); Albumin Globulin Ratio 1.2 (1.0-2.8); Alkaline Phosphatase 122 U/L (38-126); Aspartate Aminotransferase 39 IU/L (14-36); BUN Creatinine Ratio 13.6 (6-22); Bilirubin Total 0.4 mg/dL (0.2-1.3); Blood Urea Nitrogen 8 mg/dL (7-17); Calcium 9.9 mg/dL (8.4-10.2); Carbon Dioxide 25 mmol/L (22-32); Chloride 103 mmol/L (98-107); Estimated Glomerular Filt Rate > 60.0 mL/min (>60); Globulin 3.8 g/dL (1.7-4.1); Glucose 115 mg/dL (70-100); HEMOLYSIS < 15 (0-50); Lipase 72 U/L (23-300); Potassium 3.8 mmol/L (3.4-5.1); Sodium 136 mmol/L (137-145); Total Protein 8.5 g/dL (6.3-8.2)
[2020-08-29] MEDS: METOCLOPRAMIDE 10 MG/2 ML INJ IV (05:34)
[2020-08-29] MEDS: KETOROLAC 60 MG/2 ML VIAL 30 MG IV (05:34)
== END 2020-08-29 07:23 | disposition home or self-care (01) ==
PROVIDERS: Emergency Provider Emergency Medicine; PCP Physician Assistant
DX: K52.9 Noninfective gastroenteritis and colitis, unspecified (principal); R51.9 Headache, unspecified; R11.2 Nausea with vomiting, unspecified
CPT/HCPCS: 36415; 70450; 80053; 83690; 84703; 85025; 96361; 96374; 96375; 96376; 99283; 99284; J1885; J2405; J2765

== ENCOUNTER 2023-06-11 14:30 | Outpatient (RCR) | payer OTHER, MEDICAID, SELFPAY ==
[2020-08-23 12:13] VITALS: BP 132/90; PULSE 77
--- NOTE | 2020-08-23 15:25 | PT.OIE ---
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) Past Medical History (Last Reviewed 07/27/19 @ 00:08 by Liang Nath DO) Endometriosis Past Surgical History (Last Updated 07/19/19 @ 11:26 by Crystal Del Rio DO) H/O ureter repair Visit Care Team Role Provider Type Christen Figueroa PA-C Primary Care Provider Non-Staff Specialty: Family Practice Address: [address] [place] [address], [address], [place], [address] Email: TONE Riley Attending Provider Non-Staff Referring Provider Specialty: Nursing Address: [address] [place] [address] [address], [place], [address] Email: Physical Therapy Initial Evaluation PT-OP-A Visit Information Start: 08/22/20 07:37 Freq: Status: Active Protocol: Document 08/23/20 12:13 MB (Rec: 08/23/20 13:04 MB [id number]) Out-Patient Physical Therapy Visit Information Visit Information Visit Type Initial Evaluation Visit Note [facility] 24 visits PT/OT a year Marie, mother, arrives with pt Visit Start Time 12:13 Visit Stop Time 13:00 Total Visit Minutes 47 Visit Number 07/24 Evaluation Information Evaluation Date 08/23/20 Precautions Precautions BP kept between 110/140/70-90, s/p right craniotomy PT-OP-B Current Condition Start: 08/22/20 07:37 Freq: Status: Active Protocol: Document 08/23/20 12:13 MB (Rec: 08/23/20 13:04 MB [id number]) Current Condition History of Current Condition Onset Date Surgery 07/27/20 Current Complaints Dizziness, light-headedness, ETIENNE and left leg pain and imbalance History of Current Condition 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 Pt had fall and concussion then as passed out. In PMH, pt writes back pain, superficial blood clot right LE, ulcers. Current complaints include: dizziness when active (walking and movements of neck), decreased processing words, headaches managed by medications, trouble opening right side of jaw post-op, neck pain and stiffness. Pt denies falls since surgery. Pt is wearing an ice hat. Pt reports pain right side of head, left jaw and left thigh. ETIENNE pain gets up to 5/10 with medication. Her neck pain is 4 /10. Left leg pain gets up to 7/10. She reports left leg pain as deep and shooting. Pt reports pain with walking on left leg. Pt reports that her left leg feels weak. The Cymbalta helps with nerve pain . Pt reports that her right eye brown does not yet move after surgery and the right side of her head is swollen. Mother states that pt still does not have any appetite. Treatment Goals Patient/Caregiver Goals Decrease pain, increase balance and leg strength. PT-OP-C Subjective Start: 08/22/20 07:37 Freq: Status: Active Protocol: Document 08/23/20 12:13 MB (Rec: 08/23/20 14:14 MB [id number]) OP-PT Subjective Patient Comments Patient Comments See history of current condition PT-OP-D Balance Start: 08/22/20 07:37 Freq: Status: Active Protocol: Document 08/23/20 12:13 MB (Rec: 08/23/20 14:14 MB [id number]) Balance Tests Romberg Romberg LOB to the right and then the left, socks and no shoes PT-OP-G Mobility & Gait Start: 08/22/20 07:37 Freq: Status: Active Protocol: Document 08/23/20 12:13 MB (Rec: 08/23/20 14:14 MB [id number]) OP Gait Assessment Gait Gait Assistance Required: Independent Distance (Feet) 50 Able to Maintain Weight Bearing Status Yes During Gait Assistive Devices Assistive Device None Orthotic/Prosthetic Devices or Brace: No Gait Deviations General Gait Pattern Decreased Stride Length Factors Limiting Gait Function Factors Limiting Gait Function Decreased Strength,Pain,Poor Balance Comments Gait Comments Pt favors the left leg, looks down at the floor, presents with hesitancy with gait PT-OP-H Neuro Start: 08/22/20 07:37 Freq: Status: Active Protocol: Document 08/23/20 12:13 MB (Rec: 08/23/20 14:14 MB [id number]) Sensation Evaluation Comments Summary Comments Pt reports numbness right temporal area and eye brow Coordination Evaluation Upper Extremity Tests Right Finger to Nose Test Normal Performance Pronation/Supination Test Normal Performance Left Finger to Nose Test Normal Performance Pronation/Supination Test Minimal Impairment Comments Coordination Comments Right toe tapping over opposite foot normal x5 reps, rapid and accurate. Slow with left toe tapping over right foot and inaccurate, given for exercise for home: 10 reps every hour when sitting Vital Signs Pulse 1 Pulse at Rest (bpm) 77 Pulse Assessment Method Cuff Blood Pressure Sitting Blood Pressure (90/60-120/80 mmHg) 132/90 H Blood Pressure Source Automatic Cuff,Right Upper Extremity Comments Vital Signs Comments Doctor note for BP written under precautions, pt is in recommended range today PT-OP-K Range of Motion Start: 08/22/20 07:37 Freq: Status: Active Protocol: Document 08/23/20 12:13 MB (Rec: 08/23/20 14:14 MB [id number]) TMJ Range of Motion Comments Comments R eyebrow does not raise, can minimally lower. Pt presents with mild right jaw deviation and minimal dropping of left side of mouth with smile Toe Range of Motion Toes ROM Limitations Comments Decreased active left great toe extension compared to the right PT-OP-M Strength Start: 08/22/20 07:37 Freq: Status: Active Protocol: Document 08/23/20 12:13 MB (Rec: 08/23/20 14:14 MB [id number]) Shoulder Strength Shoulder Manual Muscle Testing Left Flexion 4 Good Abduction (C5) 5 Normal Adduction 5 Normal Right Flexion 4 Good Abduction (C5) 5 Normal Elbow/Forearm Strength Elbow and Forearm Manual Muscle Testing Left Flexion (C6) 4 Good Extension (C7) 5 Normal Right Flexion (C6) 4 Good Extension (C7) 5 Normal Wrist Strength Wrist Manual Muscle Testing Left Flexion (C7) 4 Good Extension (C6) 4 Good Right Flexion (C7) 5 Normal Extension (C6) 5 Normal Hip Strength Hip Manual Muscle Testing Left Flexion (L2) 3+ Fair+ Comments Pt sitting Right Flexion (L2) 4 Good Comments Pt sitting Knee Strength Knee Manual Muscle Testing Left Flexion (S2) 4 Good Extension (L3) 4 Good Comments Pt sitting Right Flexion (S2) 5 Normal Extension (L3) 5 Normal Comments Pt sitting Ankle/Foot Strength Ankle and Foot Manual Muscle Testing Left Dorsiflexion (L4) 5 Normal Right Dorsiflexion (L4) 5 Normal Toe Strength Toe Manual Muscle Testing Great Toe Extension 3+ Fair+ Right Great Toe Extension 4 Good PT-OP-O Vestibular Start: 08/22/20 07:37 Freq: Status: Active Protocol: Document 08/23/20 12:13 MB (Rec: 08/23/20 14:14 MB [id number]) Vestibular Assessment Visual Testing Smooth Pursuits Horizontal Normal Smooth Pursuits Vertical Normal Gaze Evoked Nystagmus With Fixation Negative Convergence Test R impaired Spontaneous Nystagmus Negative Comments Vestibular Comments Left pupil with decreased reactivity to pen light but very minimal PT-OP-Q Treatments Start: 08/22/20 07:37 Freq: Status: Active Protocol: Document 08/23/20 12:13 MB (Rec: 08/23/20 14:14 MB [id number]) Therapeutic Exercises Sitting Exercises Alternating winking Side bilateral Comments 10 reps to work on AAROM right eye brow with closing eye Toe tapping over opposite foot Side left Comments 5 reps and ed to perform at home every hour sitting Self-Care/Home Management Treatment Education Other Education Use of pillow vertical to raise thoracic spine with head and then pillow with cervical support horizontally on top, electrolytes per doctor note, possible options of fruit with salk and pedialyte, need for [place] provider to clear PT to touch pt's head for Counterstrain and gentle manual work, bring in full medication list PT-OP-T Assessment and Plan Start: 08/22/20 07:37 Freq: Status: Active Protocol: Document 08/23/20 12:13 MB (Rec: 08/23/20 14:14 MB [id number]) Physical Therapy Assessment Rehab Potential Rehabilitation Potential Fair Evaluation Complexity Number of Personal Factors/Comorbidities 1-2 Number of Body Systems Impaired 3 Clinical Presentation at Evaluation Evolving Impairments Impairments Activity Tolerance,Balance, Edema,Gait,Integument,Pain, Posture,ROM,Sensation,Soft Tissue Mobility,Strength, Vestibular Other Impairments Personal factors: headache, decreased memory, slow speech. Body systems affected include musculoskeletal, neuromuscular, arterial. Her clinical presentation is not yet stable after brain surgery . Other Concerns Fall Risk Yes Goals 5 Implementation Coordinator Goal (LTG) Pt will gait train at least 1400 feet in 6 minutes without AD and no LOB by 10/21/2020. LTG Duration 8 weeks 4 Long-Term Goal (LTG) Pt will perform progressive HEP with I including postural, flexibility, balance, LE strengthening, breathing, and VOR exercises to decrease symptoms and improve balance by 10/21/2020. LTG Duration 8 weeks 3 Implementation Coordinator Goal (LTG) Pt will present with improved left shoulder flexion, left hip flexion, left knee flexion and left great toe extension to 5/5 to improve balance by . LTG Duration 8 weeks 2 Long-Term Goal (LTG) Pt will report a 70% improvement in dizziness and headache symptoms to allow return to PLOF by 10/21/2020. LTG Duration 8 weeks 1 Implementation Coordinator Goal (LTG) Pt will perform WNLs on FGA to decrease fall risk and improve balance by 10/21/2020. LTG Duration 8 weeks Assessment Summary Assessment Pt is a 30 y/o female presenting post-op right craniotomy and repair of R MCA infarct using superficial temporal artery 07/27/20. This PT worked with pt pre-op. She and mother report that her left leg pain is newer and worse since surgery. She has new onset of right temporal area edema, pain and decreased right eye brow elevation. Her neck stiffness and ETIENNE are similar to pre-op and her dizziness and imbalance are some worse. Pt's BP is within range per doctor's note today. Rapid pronation and supination is pretty good and she has noted dysdiadochokinesia left toe tap over right foot. She presents with B UE and LE weakness, greater on the left. She presents with LOB with Romberg. Pt will benefit from PT to improve fascial mobility , strength, balance and gait. Barriers include post-op cranial changes, pain, polypharmacy, recovery time needed. Will initiate PT at 1x /wk and adjust as needed pending progress, response and in awareness of her needs and allowed visits per insurance. Physical Therapy Plan Frequency and Duration Frequency of Treatment 1x/Week Duration of Treatment 8 weeks Plan of Care Start Date 08/23/20 Plan of Care End Date 10/21/20 Therapeutic Interventions Therapeutic Interventions Balance Training,Canalithic Repositioning,Coordination Training,Gait Training,Home Exercise Program,Joint Mobilizations,Manual Therapy, Neuromuscular Re-education, Patient/Caregiver Education, Self-Care/Home Management, Sensory Integration,Soft Tissue Mobilization,Taping, Therapeutic Activities, Therapeutic Exercises, Vestibular Rehabilitation Modalities Cold Pack/Ice Massage,Electric Stimulation,Hot Packs, Ultrasound Next Visit Focus/Plan Next Note Type Treatment Note Next Visit Plan Counterstrain/suboccipital release as appropriate. Review previous HEP for applicability and consider wall squat for home
--- NOTE | 2020-08-23 15:26 | PT.OPPOC ---
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) Visit Care Team Role Provider Type Christen Figueroa PA-C Primary Care Provider Non-Staff Specialty: Family Practice Address: [address], [address], [place], [address] Email: TONE Riley Attending Provider Non-Staff Referring Provider Specialty: Nursing Address: [address], [place], [address] Email: Plan Of Care PT-OP-T Assessment and Plan Start: 08/22/20 07:37 Freq: Status: Active Protocol: Document 08/23/20 12:13 MB (Rec: 08/23/20 14:14 MB [id number]) Physical Therapy Assessment Rehab Potential Rehabilitation Potential Fair Evaluation Complexity Number of Personal Factors/Comorbidities 1-2 Number of Body Systems Impaired 3 Clinical Presentation at Evaluation Evolving Impairments Impairments Activity Tolerance,Balance, Edema,Gait,Integument,Pain, Posture,ROM,Sensation,Soft Tissue Mobility,Strength, Vestibular Other Impairments Personal factors: headache, decreased memory, slow speech. Body systems affected include musculoskeletal, neuromuscular, arterial. Her clinical presentation is not yet stable after brain surgery . Other Concerns Fall Risk Yes Goals 5 [facility] Goal (LTG) Pt will gait train at least 1400 feet in 6 minutes without AD and no LOB by 10/21/2020. LTG Duration 8 weeks 4 Regulatory Affairs Associate Goal (LTG) Pt will perform progressive HEP with I including postural, flexibility, balance, LE strengthening, breathing, and VOR exercises to decrease symptoms and improve balance by 10/21/2020. LTG Duration 8 weeks 3 Regulatory Affairs Associate Goal (LTG) Pt will present with improved left shoulder flexion, left hip flexion, left knee flexion and left great toe extension to 5/5 to improve balance by . LTG Duration 8 weeks 2 Regulatory Affairs Associate Goal (LTG) Pt will report a 70% improvement in dizziness and headache symptoms to allow return to PLOF by 10/21/2020. LTG Duration 8 weeks 1 Regulatory Affairs Associate Goal (LTG) Pt will perform WNLs on FGA to decrease fall risk and improve balance by 10/21/2020. LTG Duration 8 weeks Assessment Summary Assessment Pt is a 30 y/o female presenting post-op right craniotomy and repair of R MCA infarct using superficial temporal artery 07/27/20. This PT worked with pt pre-op. She and mother report that her left leg pain is newer and worse since surgery. She has new onset of right temporal area edema, pain and decreased right eye brow elevation. Her neck stiffness and ETIENNE are similar to pre-op and her dizziness and imbalance are some worse. Pt's BP is within range per doctor's note today. Rapid pronation and supination is pretty good and she has noted dysdiadochokinesia left toe tap over right foot. She presents with B UE and LE weakness, greater on the left. She presents with LOB with Romberg. Pt will benefit from PT to improve fascial mobility , strength, balance and gait. Barriers include post-op cranial changes, pain, polypharmacy, recovery time needed. Will initiate PT at 1x /wk and adjust as needed pending progress, response and in awareness of her needs and allowed visits per insurance. Physical Therapy Plan Frequency and Duration Frequency of Treatment 1x/Week Duration of Treatment 8 weeks Plan of Care Start Date 08/23/20 Plan of Care End Date 10/21/20 Therapeutic Interventions Therapeutic Interventions Balance Training,Canalithic Repositioning,Coordination Training,Gait Training,Home Exercise Program,Joint Mobilizations,Manual Therapy, Neuromuscular Re-education, Patient/Caregiver Education, Self-Care/Home Management, Sensory Integration,Soft Tissue Mobilization,Taping, Therapeutic Activities, Therapeutic Exercises, Vestibular Rehabilitation Modalities Cold Pack/Ice Massage,Electric Stimulation,Hot Packs, Ultrasound Next Visit Focus/Plan Next Note Type Treatment Note Next Visit Plan Counterstrain/suboccipital release as appropriate. Review previous HEP for applicability and consider wall squat for home Plan of Care Dates Plan of Care Start Date 08/23/20 Plan of Care End Date 10/21/20 Electronically Signed by: Donita Cruz PT 08/23/20 [id number] Please Sign and Return: I have reviewed this Plan of Care and certify that the skilled therapy services above are required to meet the patient?s needs. Physician Signature Date Printed Name and Credentials Clinical Instructor Signature Printed Name and Credentials
--- NOTE | 2020-08-25 11:17 | PT-OP ANOTE ---
Received this email today from pt when she followed-up about PT's inquiries about her current medication list and asking provider if Counterstrain is okay to resume: Here is an updated medication list? 1. metoclooramide(reglan)- for nausea-10mg four times a day? 2. fioricet- headache, every 8 hours ? 3. oxycodone- pain- I only take this as needed, not on a schedule anymore, 2.5mg? 4. probiotics- stomach 5. digestive enzymes- stomach? 6. cymbalta- nerve pain in leg-60mg 7. progesterone- endometriosis- 200mg ? 8. midodrine- to increase BP- 10mg every 8 hours? 9. Aspirin- 81mg chewable tablet? 10. pantoprazole- stomach- 40 mg? 11. Scopolamine patch- 1mg/3 day patch? I talked to the nurse practitioner?who I have the most contact with about counter strain. She said you can do light massage but to avoid the incision and graph site and not to do any deep neck massages. I'm not sure if that is helpful or not.?
--- NOTE | 2020-09-09 14:33 | PT.OTN ---
Current Diagnoses Moyamoya disease (09/09/20) Physical Therapy Treatment Note PT-OP-A Visit Information Start: 08/22/20 07:37 Freq: Status: Active Protocol: Document 09/09/20 13:46 MB (Rec: 09/09/20 14:33 MB [id number]) Out-Patient Physical Therapy Visit Information Visit Information Visit Type Treatment Note Visit Note [facility] 24 combined visits PT/OT [facility] Visit Start Time 13:46 Visit Stop Time 14:30 Total Visit Minutes 44 Visit Number 08/24 Precautions Precautions BP kept between 110/140/70-90, s/p right craniotomy PT-OP-B Current Condition Start: 08/22/20 07:37 Freq: Status: Active Protocol: Document 08/23/20 12:13 MB (Rec: 08/23/20 13:04 MB [id number]) Current Condition History of Current Condition Onset Date Surgery 07/27/20 Current Complaints Dizziness, light-headedness, ETIENNE and left leg pain and imbalance History of Current Condition 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 Pt had fall and concussion then as passed out. In PMH, pt writes back pain, superficial blood clot right LE, ulcers. Current complaints include: dizziness when active (walking and movements of neck), decreased processing words, headaches managed by medications, trouble opening right side of jaw post-op, neck pain and stiffness. Pt denies falls since surgery. Pt is wearing an ice hat. Pt reports pain right side of head, left jaw and left thigh. ETIENNE pain gets up to 5/10 with medication. Her neck pain is 4 /10. Left leg pain gets up to 7/10. She reports left leg pain as deep and shooting. Pt reports pain with walking on left leg. Pt reports that her left leg feels weak. The Cymbalta helps with nerve pain . Pt reports that her right eye brown does not yet move after surgery and the right side of her head is swollen. Mother states that pt still does not have any appetite. Treatment Goals Patient/Caregiver Goals Decrease pain, increase balance and leg strength. PT-OP-C Subjective Start: 08/22/20 07:37 Freq: Status: Active Protocol: Document 09/09/20 13:46 MB (Rec: 09/09/20 14:33 MB [id number]) OP-PT Subjective Patient Comments Patient Comments Pt had an episode of 8 hours of vomiting and came to the ED 08/29/20. She had run out of her nausea patch. She had a head CT and PT reviews it and pt states that [facility] nurse practitioner asked for CT report. She was put on new patch and nausea medicine. The nausea resolved and she has no other neuro symptoms. She still does not have an appetite and she is eating to keep her medicines down. PT-OP-D Balance Start: 08/22/20 07:37 Freq: Status: Active Protocol: Document 08/23/20 12:13 MB (Rec: 08/23/20 14:14 MB [id number]) Balance Tests Romberg Romberg LOB to the right and then the left, socks and no shoes PT-OP-G Mobility & Gait Start: 08/22/20 07:37 Freq: Status: Active Protocol: Document 08/23/20 12:13 MB (Rec: 08/23/20 14:14 MB [id number]) OP Gait Assessment Gait Gait Assistance Required: Independent Distance (Feet) 50 Able to Maintain Weight Bearing Status Yes During Gait Assistive Devices Assistive Device None Orthotic/Prosthetic Devices or Brace: No Gait Deviations General Gait Pattern Decreased Stride Length Factors Limiting Gait Function Factors Limiting Gait Function Decreased Strength,Pain,Poor Balance Comments Gait Comments Pt favors the left leg, looks down at the floor, presents with hesitancy with gait PT-OP-H Neuro Start: 08/22/20 07:37 Freq: Status: Active Protocol: Document 08/23/20 12:13 MB (Rec: 08/23/20 14:14 MB [id number]) Sensation Evaluation Comments Summary Comments Pt reports numbness right temporal area and eye brow Coordination Evaluation Upper Extremity Tests Right Finger to Nose Test Normal Performance Pronation/Supination Test Normal Performance Left Finger to Nose Test Normal Performance Pronation/Supination Test Minimal Impairment Comments Coordination Comments Right toe tapping over opposite foot normal x5 reps, rapid and accurate. Slow with left toe tapping over right foot and inaccurate, given for exercise for home: 10 reps every hour when sitting Vital Signs Pulse 1 Pulse at Rest (bpm) 77 Pulse Assessment Method Cuff Blood Pressure Sitting Blood Pressure (90/60-120/80 mmHg) 132/90 H Blood Pressure Source Automatic Cuff,Right Upper Extremity Comments Vital Signs Comments Doctor note for BP written under precautions, pt is in recommended range today PT-OP-K Range of Motion Start: 08/22/20 07:37 Freq: Status: Active Protocol: Document 08/23/20 12:13 MB (Rec: 08/23/20 14:14 MB [id number]) TMJ Range of Motion Comments Comments R eyebrow does not raise, can minimally lower. Pt presents with mild right jaw deviation and minimal dropping of left side of mouth with smile Toe Range of Motion Toes ROM Limitations Comments Decreased active left great toe extension compared to the right PT-OP-M Strength Start: 08/22/20 07:37 Freq: Status: Active Protocol: Document 08/23/20 12:13 MB (Rec: 08/23/20 14:14 MB [id number]) Shoulder Strength Shoulder Manual Muscle Testing Left Flexion 4 Good Abduction (C5) 5 Normal Adduction 5 Normal Right Flexion 4 Good Abduction (C5) 5 Normal Elbow/Forearm Strength Elbow and Forearm Manual Muscle Testing Left Flexion (C6) 4 Good Extension (C7) 5 Normal Right Flexion (C6) 4 Good Extension (C7) 5 Normal Wrist Strength Wrist Manual Muscle Testing Left Flexion (C7) 4 Good Extension (C6) 4 Good Right Flexion (C7) 5 Normal Extension (C6) 5 Normal Hip Strength Hip Manual Muscle Testing Left Flexion (L2) 3+ Fair+ Comments Pt sitting Right Flexion (L2) 4 Good Comments Pt sitting Knee Strength Knee Manual Muscle Testing Left Flexion (S2) 4 Good Extension (L3) 4 Good Comments Pt sitting Right Flexion (S2) 5 Normal Extension (L3) 5 Normal Comments Pt sitting Ankle/Foot Strength Ankle and Foot Manual Muscle Testing Left Dorsiflexion (L4) 5 Normal Right Dorsiflexion (L4) 5 Normal Toe Strength Toe Manual Muscle Testing Great Toe Extension 3+ Fair+ Right Great Toe Extension 4 Good PT-OP-O Vestibular Start: 08/22/20 07:37 Freq: Status: Active Protocol: Document 08/23/20 12:13 MB (Rec: 08/23/20 14:14 MB [id number]) Vestibular Assessment Visual Testing Smooth Pursuits Horizontal Normal Smooth Pursuits Vertical Normal Gaze Evoked Nystagmus With Fixation Negative Convergence Test R impaired Spontaneous Nystagmus Negative Comments Vestibular Comments Left pupil with decreased reactivity to pen light but very minimal PT-OP-Q Treatments Start: 08/22/20 07:37 Freq: Status: Active Protocol: Document 09/09/20 13:46 MB (Rec: 09/09/20 14:33 MB [id number]) Manual Therapy Treatment Other Other Manual Treatments Pt agrees to Counterstrain to assess and treat fascial tension. PT stays away from right temporal area. PT treats sympathetics above thoracic spine and trigeminal nerve fascia as these are tight with scan that PT can perform safely. PT treats stacks. PT-OP-T Assessment and Plan Start: 08/22/20 07:37 Freq: Status: Active Protocol: Document 09/09/20 13:46 MB (Rec: 09/09/20 14:33 MB [id number]) Physical Therapy Assessment Rehab Potential Rehabilitation Potential Fair Evaluation Complexity Number of Personal Factors/Comorbidities 1-2 Number of Body Systems Impaired 3 Clinical Presentation at Evaluation Evolving Impairments Impairments Activity Tolerance,Balance, Edema,Gait,Integument,Pain, Posture,ROM,Sensation,Soft Tissue Mobility,Strength, Vestibular Other Impairments Personal factors: headache, decreased memory, slow speech. Body systems affected include musculoskeletal, neuromuscular, arterial. Her clinical presentation is not yet stable after brain surgery . Other Concerns Fall Risk Yes Goals 5 Tool Tender Goal (LTG) Pt will gait train at least 1400 feet in 6 minutes without AD and no LOB by 10/21/2020. LTG Duration 8 weeks 4 Tool Tender Goal (LTG) Pt will perform progressive HEP with I including postural, flexibility, balance, LE strengthening, breathing, and VOR exercises to decrease symptoms and improve balance by 10/21/2020. LTG Duration 8 weeks 3 Tool Tender Goal (LTG) Pt will present with improved left shoulder flexion, left hip flexion, left knee flexion and left great toe extension to 5/5 to improve balance by . LTG Duration 8 weeks 2 Custodial Goal (LTG) Pt will report a 70% improvement in dizziness and headache symptoms to allow return to PLOF by 10/21/2020. LTG Duration 8 weeks 1 Tool Tender Goal (LTG) Pt will perform WNLs on FGA to decrease fall risk and improve balance by 10/21/2020. LTG Duration 8 weeks Assessment Summary Assessment PT initiated gentle manual work (Counterstrain), and did not work over right temporal area. Pt responds well. Con't per plan. Physical Therapy Plan Frequency and Duration Frequency of Treatment 1x/Week Duration of Treatment 8 weeks Plan of Care Start Date 08/23/20 Plan of Care End Date 10/21/20 Therapeutic Interventions Therapeutic Interventions Balance Training,Canalithic Repositioning,Coordination Training,Gait Training,Home Exercise Program,Joint Mobilizations,Manual Therapy, Neuromuscular Re-education, Patient/Caregiver Education, Self-Care/Home Management, Sensory Integration,Soft Tissue Mobilization,Taping, Therapeutic Activities, Therapeutic Exercises, Vestibular Rehabilitation Modalities Cold Pack/Ice Massage,Electric Stimulation,Hot Packs, Ultrasound Next Visit Focus/Plan Next Note Type Treatment Note Next Visit Plan Ongoing Counterstrain/ suboccipital release as appropriate. Review previous HEP for applicability and consider wall squat for home
--- NOTE | 2020-09-12 10:35 | PT.OTN ---
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) Headache, unspecified (09/12/20) Weakness (09/12/20) Concussion with loss of consciousness of unspecified duration, subsequent encounter (09/12/20) Physical Therapy Treatment Note PT-OP-A Visit Information Start: 08/22/20 07:37 Freq: Status: Active Protocol: Document 09/12/20 09:46 MB (Rec: 09/12/20 10:31 MB [id number]) Out-Patient Physical Therapy Visit Information Visit Information Visit Type Treatment Note Visit Note 24 combined visits PT/OT Visit Start Time 09:46 Visit Stop Time 10:30 Total Visit Minutes 44 Visit Number 09/21 Precautions Precautions BP kept between 110/140/70-90, s/p right craniotomy PT-OP-B Current Condition Start: 08/22/20 07:37 Freq: Status: Active Protocol: Document 08/23/20 12:13 MB (Rec: 08/23/20 13:04 MB [id number]) Current Condition History of Current Condition Onset Date Surgery 07/27/20 Current Complaints Dizziness, light-headedness, ETIENNE and left leg pain and imbalance History of Current Condition 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 Pt had fall and concussion then as passed out. In PMH, pt writes back pain, superficial blood clot right LE, ulcers. Current complaints include: dizziness when active (walking and movements of neck), decreased processing words, headaches managed by medications, trouble opening right side of jaw post-op, neck pain and stiffness. Pt denies falls since surgery. Pt is wearing an ice hat. Pt reports pain right side of head, left jaw and left thigh. ETIENNE pain gets up to 5/10 with medication. Her neck pain is 4 /10. Left leg pain gets up to 7/10. She reports left leg pain as deep and shooting. Pt reports pain with walking on left leg. Pt reports that her left leg feels weak. The Cymbalta helps with nerve pain . Pt reports that her right eye brown does not yet move after surgery and the right side of her head is swollen. Mother states that pt still does not have any appetite. Treatment Goals Patient/Caregiver Goals Decrease pain, increase balance and leg strength. PT-OP-C Subjective Start: 08/22/20 07:37 Freq: Status: Active Protocol: Document 09/12/20 09:46 MB (Rec: 09/12/20 10:31 MB [id number]) OP-PT Subjective Patient Comments Patient Comments Pt had a lot of energy the day after Counterstrain. Her headaches creeped up over the weekend. She is walking her dog and he is moving around a lot. PT-OP-D Balance Start: 08/22/20 07:37 Freq: Status: Active Protocol: Document 08/23/20 12:13 MB (Rec: 08/23/20 14:14 MB [id number]) Balance Tests Romberg Romberg LOB to the right and then the left, socks and no shoes PT-OP-G Mobility & Gait Start: 08/22/20 07:37 Freq: Status: Active Protocol: Document 08/23/20 12:13 MB (Rec: 08/23/20 14:14 MB [id number]) OP Gait Assessment Gait Gait Assistance Required: Independent Distance (Feet) 50 Able to Maintain Weight Bearing Status Yes During Gait Assistive Devices Assistive Device None Orthotic/Prosthetic Devices or Brace: No Gait Deviations General Gait Pattern Decreased Stride Length Factors Limiting Gait Function Factors Limiting Gait Function Decreased Strength,Pain,Poor Balance Comments Gait Comments Pt favors the left leg, looks down at the floor, presents with hesitancy with gait PT-OP-H Neuro Start: 08/22/20 07:37 Freq: Status: Active Protocol: Document 08/23/20 12:13 MB (Rec: 08/23/20 14:14 MB [id number]) Sensation Evaluation Comments Summary Comments Pt reports numbness right temporal area and eye brow Coordination Evaluation Upper Extremity Tests Right Finger to Nose Test Normal Performance Pronation/Supination Test Normal Performance Left Finger to Nose Test Normal Performance Pronation/Supination Test Minimal Impairment Comments Coordination Comments Right toe tapping over opposite foot normal x5 reps, rapid and accurate. Slow with left toe tapping over right foot and inaccurate, given for exercise for home: 10 reps every hour when sitting Vital Signs Pulse 1 Pulse at Rest (bpm) 77 Pulse Assessment Method Cuff Blood Pressure Sitting Blood Pressure (90/60-120/80 mmHg) 132/90 H Blood Pressure Source Automatic Cuff,Right Upper Extremity Comments Vital Signs Comments Doctor note for BP written under precautions, pt is in recommended range today PT-OP-K Range of Motion Start: 08/22/20 07:37 Freq: Status: Active Protocol: Document 08/23/20 12:13 MB (Rec: 08/23/20 14:14 MB [id number]) TMJ Range of Motion Comments Comments R eyebrow does not raise, can minimally lower. Pt presents with mild right jaw deviation and minimal dropping of left side of mouth with smile Toe Range of Motion Toes ROM Limitations Comments Decreased active left great toe extension compared to the right PT-OP-M Strength Start: 08/22/20 07:37 Freq: Status: Active Protocol: Document 08/23/20 12:13 MB (Rec: 08/23/20 14:14 MB [id number]) Shoulder Strength Shoulder Manual Muscle Testing Left Flexion 4 Good Abduction (C5) 5 Normal Adduction 5 Normal Right Flexion 4 Good Abduction (C5) 5 Normal Elbow/Forearm Strength Elbow and Forearm Manual Muscle Testing Left Flexion (C6) 4 Good Extension (C7) 5 Normal Right Flexion (C6) 4 Good Extension (C7) 5 Normal Wrist Strength Wrist Manual Muscle Testing Left Flexion (C7) 4 Good Extension (C6) 4 Good Right Flexion (C7) 5 Normal Extension (C6) 5 Normal Hip Strength Hip Manual Muscle Testing Left Flexion (L2) 3+ Fair+ Comments Pt sitting Right Flexion (L2) 4 Good Comments Pt sitting Knee Strength Knee Manual Muscle Testing Left Flexion (S2) 4 Good Extension (L3) 4 Good Comments Pt sitting Right Flexion (S2) 5 Normal Extension (L3) 5 Normal Comments Pt sitting Ankle/Foot Strength Ankle and Foot Manual Muscle Testing Left Dorsiflexion (L4) 5 Normal Right Dorsiflexion (L4) 5 Normal Toe Strength Toe Manual Muscle Testing Great Toe Extension 3+ Fair+ Right Great Toe Extension 4 Good PT-OP-O Vestibular Start: 08/22/20 07:37 Freq: Status: Active Protocol: Document 08/23/20 12:13 MB (Rec: 08/23/20 14:14 MB [id number]) Vestibular Assessment Visual Testing Smooth Pursuits Horizontal Normal Smooth Pursuits Vertical Normal Gaze Evoked Nystagmus With Fixation Negative Convergence Test R impaired Spontaneous Nystagmus Negative Comments Vestibular Comments Left pupil with decreased reactivity to pen light but very minimal PT-OP-Q Treatments Start: 08/22/20 07:37 Freq: Status: Active Protocol: Document 09/12/20 09:46 MB (Rec: 09/12/20 10:31 MB [id number]) Therapeutic Exercises Standing Exercises Instrascapular strengthening Side bilateral Comments Level 1 band, 5 reps, cues for posture Scapular retraction with back against wall Standing Exercise Name Kids ball behind back Comments EO and EC and mini squats Wall slide with ball between knees Comments 5 reps slowly. Better with balls between knees than with ball behind back Infraspinatus MWM with racquet ball Side right Comments Performed today Intrascapular muscles STM with racquet ball Side bilateral Comments Performs I today Self-Care/Home Management Treatment Education Other Education What to bring to next appointment: shorter dog leash , any other needed equipment for dog, Rashaun, sunglasses Practice with scapular retraction, strong shoulders and posture, PT pulling on theraband to the left, therband exercise to help with posture. Ed to practice sit, stay, down and leash training the most (not shake ) and benefits hiring a outdoor fitness trainer and all people in the house walking and training him the same (on the left), bring harness and collar. Consider training with collar and not harness. Consider fetch for exercise for dog and no dog barks given imbalance. PT-OP-T Assessment and Plan Start: 08/22/20 07:37 Freq: Status: Active Protocol: Document 09/12/20 09:46 MB (Rec: 09/12/20 10:31 MB [id number]) Physical Therapy Assessment Rehab Potential Rehabilitation Potential Fair Evaluation Complexity Number of Personal Factors/Comorbidities 1-2 Number of Body Systems Impaired 3 Clinical Presentation at Evaluation Evolving Impairments Impairments Activity Tolerance,Balance, Edema,Gait,Integument,Pain, Posture,ROM,Sensation,Soft Tissue Mobility,Strength, Vestibular Other Impairments Personal factors: headache, decreased memory, slow speech. Body systems affected include musculoskeletal, neuromuscular, arterial. Her clinical presentation is not yet stable after brain surgery . Other Concerns Fall Risk Yes Goals 5 Long-Term Goal (LTG) Pt will gait train at least 1400 feet in 6 minutes without AD and no LOB by 10/21/2020. LTG Duration 8 weeks 4 [employer] Goal (LTG) Pt will perform progressive HEP with I including postural, flexibility, balance, LE strengthening, breathing, and VOR exercises to decrease symptoms and improve balance by 10/21/2020. LTG Duration 8 weeks 3 Long-Term Goal (LTG) Pt will present with improved left shoulder flexion, left hip flexion, left knee flexion and left great toe extension to 5/5 to improve balance by . LTG Duration 8 weeks 2 Long-Term Goal (LTG) Pt will report a 70% improvement in dizziness and headache symptoms to allow return to PLOF by 10/21/2020. LTG Duration 8 weeks 1 [employer] Goal (LTG) Pt will perform WNLs on FGA to decrease fall risk and improve balance by 10/21/2020. LTG Duration 8 weeks Assessment Summary Assessment Will try one more appointment this week to help with dog training to help with pt balance and safety and doing this sooner rather than later to assist with increasing independence with ADLs. Physical Therapy Plan Frequency and Duration Frequency of Treatment 1x/Week Duration of Treatment 8 weeks Plan of Care Start Date 08/23/20 Plan of Care End Date 10/21/20 Therapeutic Interventions Therapeutic Interventions Balance Training,Canalithic Repositioning,Coordination Training,Gait Training,Home Exercise Program,Joint Mobilizations,Manual Therapy, Neuromuscular Re-education, Patient/Caregiver Education, Self-Care/Home Management, Sensory Integration,Soft Tissue Mobilization,Taping, Therapeutic Activities, Therapeutic Exercises, Vestibular Rehabilitation Modalities Cold Pack/Ice Massage,Electric Stimulation,Hot Packs, Ultrasound Next Visit Focus/Plan Next Note Type Treatment Note Next Visit Plan Dog training for leash to assist with pt safety and balance. Ongoing Counterstrain /suboccipital release as appropriate. Review previous HEP for applicability and consider wall squat for home
--- NOTE | 2020-09-12 10:37 | PT.OPPOC ---
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) Headache, unspecified (09/12/20) Weakness (09/12/20) Concussion with loss of consciousness of unspecified duration, subsequent encounter (09/12/20) Visit Care Team Role Provider Type Christen Figueroa PA-C Primary Care Provider Non-Staff Specialty: Family [facility] Address: [address], [address], [place], [address] Email: TONE Riley Attending Provider Non-Staff Referring Provider Specialty: Nursing Address: [address] [place] [address] [address], [place], [address] Email: Plan Of Care PT-OP-T Assessment and Plan Start: 08/22/20 07:37 Freq: Status: Active Protocol: Document 09/12/20 09:46 MB (Rec: 09/12/20 10:31 MB [id number]) Physical Therapy Assessment Rehab Potential Rehabilitation Potential Fair Evaluation Complexity Number of Personal Factors/Comorbidities 1-2 Number of Body Systems Impaired 3 Clinical Presentation at Evaluation Evolving Impairments Impairments Activity Tolerance,Balance, Edema,Gait,Integument,Pain, Posture,ROM,Sensation,Soft Tissue Mobility,Strength, Vestibular Other Impairments Personal factors: headache, decreased memory, slow speech. Body systems affected include musculoskeletal, neuromuscular, arterial. Her clinical presentation is not yet stable after brain surgery . Other Concerns Fall Risk Yes Goals 5 [employer] [place] Goal (LTG) Pt will gait train at least 1400 feet in 6 minutes without AD and no LOB by 10/21/2020. LTG Duration 8 weeks 4 [employer] Goal (LTG) Pt will perform progressive HEP with I including postural, flexibility, balance, LE strengthening, breathing, and VOR exercises to decrease symptoms and improve balance by 10/21/2020. LTG Duration 8 weeks 3 [facility] Goal (LTG) Pt will present with improved left shoulder flexion, left hip flexion, left knee flexion and left great toe extension to 5/5 to improve balance by . LTG Duration 8 weeks 2 [employer] Goal (LTG) Pt will report a 70% improvement in dizziness and headache symptoms to allow return to PLOF by 10/21/2020. LTG Duration 8 weeks 1 [facility] Goal (LTG) Pt will perform WNLs on FGA to decrease fall risk and improve balance by 10/21/2020. LTG Duration 8 weeks Assessment Summary Assessment Will try one more appointment this week to help with dog training to help with pt balance and safety and doing this sooner rather than later to assist with increasing independence with ADLs. Physical Therapy Plan Frequency and Duration Frequency of Treatment 1-2x/wk Duration of Treatment 8 weeks Plan of Care Start Date 09/12/20 Plan of Care End Date 11/14/20 Therapeutic Interventions Therapeutic Interventions Balance Training,Canalithic Repositioning,Coordination Training,Gait Training,Home Exercise Program,Joint Mobilizations,Manual Therapy, Neuromuscular Re-education, Patient/Caregiver Education, Self-Care/Home Management, Sensory Integration,Soft Tissue Mobilization,Taping, Therapeutic Activities, Therapeutic Exercises, Vestibular Rehabilitation Modalities Cold Pack/Ice Massage,Electric Stimulation,Hot Packs, Ultrasound Next Visit Focus/Plan Next Note Type Treatment Note Next Visit Plan Dog training for leash to assist with pt safety and balance. Ongoing Counterstrain /suboccipital release as appropriate. Review previous HEP for applicability and consider wall squat for home Plan of Care Dates Plan of Care Start Date 09/12/20 Plan of Care End Date 11/14/20 Electronically Signed by: Donita Cruz PT 09/12/20 1037 Please Sign and Return: I have reviewed this Plan of Care and certify that the skilled therapy services above are required to meet the patient?s needs. Physician Signature Date Printed Name and Credentials Clinical Instructor Signature Printed Name and Credentials
--- NOTE | 2020-09-14 11:07 | PT.OTN ---
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) Headache, unspecified (09/14/20) Weakness (09/14/20) Concussion with loss of consciousness of unspecified duration, subsequent encounter (09/14/20) Physical Therapy Treatment Note PT-OP-A Visit Information Start: 08/22/20 07:37 Freq: Status: Active Protocol: Document 09/14/20 09:46 MB (Rec: 09/14/20 11:07 MB [id number]) Out-Patient Physical Therapy Visit Information Visit Information Visit Type Treatment Note Visit Note 24 combined visits PT/OT Visit Start Time 09:46 Visit Stop Time 10:30 Total Visit Minutes 44 Visit Number 10/22 Precautions Precautions BP kept between 110/140/70-90, s/p right craniotomy PT-OP-B Current Condition Start: 08/22/20 07:37 Freq: Status: Active Protocol: Document 08/23/20 12:13 MB (Rec: 08/23/20 13:04 MB [id number]) Current Condition History of Current Condition Onset Date Surgery 07/27/20 Current Complaints Dizziness, light-headedness, ETIENNE and left leg pain and imbalance History of Current Condition 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 Pt had fall and concussion then as passed out. In PMH, pt writes back pain, superficial blood clot right LE, ulcers. Current complaints include: dizziness when active (walking and movements of neck), decreased processing words, headaches managed by medications, trouble opening right side of jaw post-op, neck pain and stiffness. Pt denies falls since surgery. Pt is wearing an ice hat. Pt reports pain right side of head, left jaw and left thigh. ETIENNE pain gets up to 5/10 with medication. Her neck pain is 4 /10. Left leg pain gets up to 7/10. She reports left leg pain as deep and shooting. Pt reports pain with walking on left leg. Pt reports that her left leg feels weak. The Cymbalta helps with nerve pain . Pt reports that her right eye brown does not yet move after surgery and the right side of her head is swollen. Mother states that pt still does not have any appetite. Treatment Goals Patient/Caregiver Goals Decrease pain, increase balance and leg strength. PT-OP-C Subjective Start: 08/22/20 07:37 Freq: Status: Active Protocol: Document 09/14/20 09:46 MB (Rec: 09/14/20 11:07 MB [id number]) OP-PT Subjective Patient Comments Patient Comments Pt and her mom, Eda, arrive to work on pt's balance and safety with dog training and walking her dog. PT-OP-D Balance Start: 08/22/20 07:37 Freq: Status: Active Protocol: Document 08/23/20 12:13 MB (Rec: 08/23/20 14:14 MB [id number]) Balance Tests Romberg Romberg LOB to the right and then the left, socks and no shoes PT-OP-G Mobility & Gait Start: 08/22/20 07:37 Freq: Status: Active Protocol: Document 08/23/20 12:13 MB (Rec: 08/23/20 14:14 MB [id number]) OP Gait Assessment Gait Gait Assistance Required: Independent Distance (Feet) 50 Able to Maintain Weight Bearing Status Yes During Gait Assistive Devices Assistive Device None Orthotic/Prosthetic Devices or Brace: No Gait Deviations General Gait Pattern Decreased Stride Length Factors Limiting Gait Function Factors Limiting Gait Function Decreased Strength,Pain,Poor Balance Comments Gait Comments Pt favors the left leg, looks down at the floor, presents with hesitancy with gait PT-OP-H Neuro Start: 08/22/20 07:37 Freq: Status: Active Protocol: Document 08/23/20 12:13 MB (Rec: 08/23/20 14:14 MB [id number]) Sensation Evaluation Comments Summary Comments Pt reports numbness right temporal area and eye brow Coordination Evaluation Upper Extremity Tests Right Finger to Nose Test Normal Performance Pronation/Supination Test Normal Performance Left Finger to Nose Test Normal Performance Pronation/Supination Test Minimal Impairment Comments Coordination Comments Right toe tapping over opposite foot normal x5 reps, rapid and accurate. Slow with left toe tapping over right foot and inaccurate, given for exercise for home: 10 reps every hour when sitting Vital Signs Pulse 1 Pulse at Rest (bpm) 77 Pulse Assessment Method Cuff Blood Pressure Sitting Blood Pressure (90/60-120/80 mmHg) 132/90 H Blood Pressure Source Automatic Cuff,Right Upper Extremity Comments Vital Signs Comments Doctor note for BP written under precautions, pt is in recommended range today PT-OP-K Range of Motion Start: 08/22/20 07:37 Freq: Status: Active Protocol: Document 08/23/20 12:13 MB (Rec: 08/23/20 14:14 MB [id number]) TMJ Range of Motion Comments Comments R eyebrow does not raise, can minimally lower. Pt presents with mild right jaw deviation and minimal dropping of left side of mouth with smile Toe Range of Motion Toes ROM Limitations Comments Decreased active left great toe extension compared to the right PT-OP-M Strength Start: 08/22/20 07:37 Freq: Status: Active Protocol: Document 08/23/20 12:13 MB (Rec: 08/23/20 14:14 MB [id number]) Shoulder Strength Shoulder Manual Muscle Testing Left Flexion 4 Good Abduction (C5) 5 Normal Adduction 5 Normal Right Flexion 4 Good Abduction (C5) 5 Normal Elbow/Forearm Strength Elbow and Forearm Manual Muscle Testing Left Flexion (C6) 4 Good Extension (C7) 5 Normal Right Flexion (C6) 4 Good Extension (C7) 5 Normal Wrist Strength Wrist Manual Muscle Testing Left Flexion (C7) 4 Good Extension (C6) 4 Good Right Flexion (C7) 5 Normal Extension (C6) 5 Normal Hip Strength Hip Manual Muscle Testing Left Flexion (L2) 3+ Fair+ Comments Pt sitting Right Flexion (L2) 4 Good Comments Pt sitting Knee Strength Knee Manual Muscle Testing Left Flexion (S2) 4 Good Extension (L3) 4 Good Comments Pt sitting Right Flexion (S2) 5 Normal Extension (L3) 5 Normal Comments Pt sitting Ankle/Foot Strength Ankle and Foot Manual Muscle Testing Left Dorsiflexion (L4) 5 Normal Right Dorsiflexion (L4) 5 Normal Toe Strength Toe Manual Muscle Testing Great Toe Extension 3+ Fair+ Right Great Toe Extension 4 Good PT-OP-O Vestibular Start: 08/22/20 07:37 Freq: Status: Active Protocol: Document 08/23/20 12:13 MB (Rec: 08/23/20 14:14 MB [id number]) Vestibular Assessment Visual Testing Smooth Pursuits Horizontal Normal Smooth Pursuits Vertical Normal Gaze Evoked Nystagmus With Fixation Negative Convergence Test R impaired Spontaneous Nystagmus Negative Comments Vestibular Comments Left pupil with decreased reactivity to pen light but very minimal PT-OP-Q Treatments Start: 08/22/20 07:37 Freq: Status: Active Protocol: Document 09/14/20 09:46 MB (Rec: 09/14/20 11:07 MB [id number]) Gait Training Gait Activity 1 Comments Gait training wtih pt, her dog and her mom. Pt brings regular collar, choke chain and 6' leash as PT had suggested. Training with pt and dog, Rashaun: Hold leash with both hands with dog always on the left. Correcting hand/ wrist as the left and right arm for support with arms strong and near body. Frequent breaks and practices for timed no, leash correction, sit, stay, down. Pt has no LOB with training today and requires SBA to CGA for walking dog on her left and several gait trials, increasing speed. She walks well behind mom and dog when mom is working with him and is able to increased her stephen without LOB. See balance comments for further interventions today Neuro Re-Education Treatment Balance Activities Position transitions with walking dog/commands Comments Pt reports fear with falling backwards with bending over to give dog treat. She also taps the ground for command for lying down. Ed pt in proper squatting posture with hips back and feet further apart, bending at her knees. Pt is able to perform with CGA and then superv. Ed to get dog to look at her so that she will not have to bend over to touch the ground and to use larger voice and hand motion. She does better with practice. Pt requires occ HAIRPIECE STYLIST and PT for static and dynamic standing balance when she is standing to watch dog gait instructions when PT or mom demos. Training mom that support at waist with belt is better than arm. Ed for pt to walk quickly with boyfriend behind mom when mom is walking with dog and mom or boyfriend CGA when pt is walking with dog. No c/o headaches or dizziness with training today. PT-OP-T Assessment and Plan Start: 08/22/20 07:37 Freq: Status: Active Protocol: Document 09/14/20 09:46 MB (Rec: 09/14/20 11:07 MB [id number]) Physical Therapy Assessment Rehab Potential Rehabilitation Potential Fair Evaluation Complexity Number of Personal Factors/Comorbidities 1-2 Number of Body Systems Impaired 3 Clinical Presentation at Evaluation Evolving Impairments Impairments Activity Tolerance,Balance, Edema,Gait,Integument,Pain, Posture,ROM,Sensation,Soft Tissue Mobility,Strength, Vestibular Other Impairments Personal factors: headache, decreased memory, slow speech. Body systems affected include musculoskeletal, neuromuscular, arterial. Her clinical presentation is not yet stable after brain surgery . Other Concerns Fall Risk Yes Goals 5 Skilled Nursing Goal (LTG) Pt will gait train at least 1400 feet in 6 minutes without AD and no LOB by 10/21/2020. LTG Duration 8 weeks 4 Oil And Gas Exploration Technician Goal (LTG) Pt will perform progressive HEP with I including postural, flexibility, balance, LE strengthening, breathing, and VOR exercises to decrease symptoms and improve balance by 10/21/2020. LTG Duration 8 weeks 3 Oil And Gas Exploration Technician Goal (LTG) Pt will present with improved left shoulder flexion, left hip flexion, left knee flexion and left great toe extension to 5/5 to improve balance by . LTG Duration 8 weeks 2 Oil And Gas Exploration Technician Goal (LTG) Pt will report a 70% improvement in dizziness and headache symptoms to allow return to PLOF by 10/21/2020. LTG Duration 8 weeks 1 Skilled Nursing Goal (LTG) Pt will perform WNLs on FGA to decrease fall risk and improve balance by 10/21/2020. LTG Duration 8 weeks Assessment Summary Assessment Pt and mother arrive with Rashaun and PT provides gait training , safety training and pt walks more and does more physical activity with PT than she has in any other PT visit. Will con't to progress this sort of exercises as it is functional and pt desires to manage her dog I and safely in future treatments. Also will con't manual work as needed. Physical Therapy Plan Frequency and Duration Frequency of Treatment 1-2x/wk Duration of Treatment 8 weeks Plan of Care Start Date 09/12/20 Plan of Care End Date 11/14/20 Therapeutic Interventions Therapeutic Interventions Balance Training,Canalithic Repositioning,Coordination Training,Gait Training,Home Exercise Program,Joint Mobilizations,Manual Therapy, Neuromuscular Re-education, Patient/Caregiver Education, Self-Care/Home Management, Sensory Integration,Soft Tissue Mobilization,Taping, Therapeutic Activities, Therapeutic Exercises, Vestibular Rehabilitation Modalities Cold Pack/Ice Massage,Electric Stimulation,Hot Packs, Ultrasound Next Visit Focus/Plan Next Note Type Treatment Note Next Visit Plan Pt did very well with balance and gait training with dog, may con't in future treatments . Ongoing Counterstrain/ suboccipital release as appropriate. Review previous HEP for applicability and consider wall squat for home
--- NOTE | 2020-09-21 13:52 | PT.OTN ---
Current Diagnoses Moyamoya disease (09/21/20) Headache, unspecified (09/21/20) Weakness (09/21/20) Concussion with loss of consciousness of unspecified duration, subsequent encounter (09/21/20) Physical Therapy Treatment Note PT-OP-A Visit Information Start: 08/22/20 07:37 Freq: Status: Active Protocol: Document 09/21/20 12:50 MB (Rec: 09/21/20 13:52 MB [id number]) Out-Patient Physical Therapy Visit Information Visit Information Visit Type Treatment Note Visit Note 24 combined visits PT/OT Visit Start Time 12:50 Visit Stop Time 13:50 Total Visit Minutes 60 Visit Number 11/21 Precautions Precautions BP kept between 110/140/70-90, s/p right craniotomy PT-OP-B Current Condition Start: 08/22/20 07:37 Freq: Status: Active Protocol: Document 08/23/20 12:13 MB (Rec: 08/23/20 13:04 MB [id number]) Current Condition History of Current Condition Onset Date Surgery 07/27/20 Current Complaints Dizziness, light-headedness, ETIENNE and left leg pain and imbalance History of Current Condition 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 Pt had fall and concussion then as passed out. In PMH, pt writes back pain, superficial blood clot right LE, ulcers. Current complaints include: dizziness when active (walking and movements of neck), decreased processing words, headaches managed by medications, trouble opening right side of jaw post-op, neck pain and stiffness. Pt denies falls since surgery. Pt is wearing an ice hat. Pt reports pain right side of head, left jaw and left thigh. ETIENNE pain gets up to 5/10 with medication. Her neck pain is 4 /10. Left leg pain gets up to 7/10. She reports left leg pain as deep and shooting. Pt reports pain with walking on left leg. Pt reports that her left leg feels weak. The Cymbalta helps with nerve pain . Pt reports that her right eye brown does not yet move after surgery and the right side of her head is swollen. Mother states that pt still does not have any appetite. Treatment Goals Patient/Caregiver Goals Decrease pain, increase balance and leg strength. PT-OP-C Subjective Start: 08/22/20 07:37 Freq: Status: Active Protocol: Document 09/21/20 12:50 MB (Rec: 09/21/20 13:52 MB [id number]) OP-PT Subjective Patient Comments Patient Comments Pt contacted TRAILER TECHNICIAN who told her that her right headache ( temporal) and hand band pain is not from surgery and that she should follow-up with headache specialist. She was tired after gait training with her dog but headache pain was not worse. PT states that she finished her Ferocet and the surgeon's office will not prescribe more. Pt reports she is waking up with a headache. PT-OP-D Balance Start: 08/22/20 07:37 Freq: Status: Active Protocol: Document 08/23/20 12:13 MB (Rec: 08/23/20 14:14 MB [id number]) Balance Tests Romberg Romberg LOB to the right and then the left, socks and no shoes PT-OP-G Mobility & Gait Start: 08/22/20 07:37 Freq: Status: Active Protocol: Document 08/23/20 12:13 MB (Rec: 08/23/20 14:14 MB [id number]) OP Gait Assessment Gait Gait Assistance Required: Independent Distance (Feet) 50 Able to Maintain Weight Bearing Status Yes During Gait Assistive Devices Assistive Device None Orthotic/Prosthetic Devices or Brace: No Gait Deviations General Gait Pattern Decreased Stride Length Factors Limiting Gait Function Factors Limiting Gait Function Decreased Strength,Pain,Poor Balance Comments Gait Comments Pt favors the left leg, looks down at the floor, presents with hesitancy with gait PT-OP-H Neuro Start: 08/22/20 07:37 Freq: Status: Active Protocol: Document 08/23/20 12:13 MB (Rec: 08/23/20 14:14 MB [id number]) Sensation Evaluation Comments Summary Comments Pt reports numbness right temporal area and eye brow Coordination Evaluation Upper Extremity Tests Right Finger to Nose Test Normal Performance Pronation/Supination Test Normal Performance Left Finger to Nose Test Normal Performance Pronation/Supination Test Minimal Impairment Comments Coordination Comments Right toe tapping over opposite foot normal x5 reps, rapid and accurate. Slow with left toe tapping over right foot and inaccurate, given for exercise for home: 10 reps every hour when sitting Vital Signs Pulse 1 Pulse at Rest (bpm) 77 Pulse Assessment Method Cuff Blood Pressure Sitting Blood Pressure (90/60-120/80 mmHg) 132/90 H Blood Pressure Source Automatic Cuff,Right Upper Extremity Comments Vital Signs Comments Doctor note for BP written under precautions, pt is in recommended range today PT-OP-K Range of Motion Start: 08/22/20 07:37 Freq: Status: Active Protocol: Document 08/23/20 12:13 MB (Rec: 08/23/20 14:14 MB [id number]) TMJ Range of Motion Comments Comments R eyebrow does not raise, can minimally lower. Pt presents with mild right jaw deviation and minimal dropping of left side of mouth with smile Toe Range of Motion Toes ROM Limitations Comments Decreased active left great toe extension compared to the right PT-OP-M Strength Start: 08/22/20 07:37 Freq: Status: Active Protocol: Document 08/23/20 12:13 MB (Rec: 08/23/20 14:14 MB [id number]) Shoulder Strength Shoulder Manual Muscle Testing Left Flexion 4 Good Abduction (C5) 5 Normal Adduction 5 Normal Right Flexion 4 Good Abduction (C5) 5 Normal Elbow/Forearm Strength Elbow and Forearm Manual Muscle Testing Left Flexion (C6) 4 Good Extension (C7) 5 Normal Right Flexion (C6) 4 Good Extension (C7) 5 Normal Wrist Strength Wrist Manual Muscle Testing Left Flexion (C7) 4 Good Extension (C6) 4 Good Right Flexion (C7) 5 Normal Extension (C6) 5 Normal Hip Strength Hip Manual Muscle Testing Left Flexion (L2) 3+ Fair+ Comments Pt sitting Right Flexion (L2) 4 Good Comments Pt sitting Knee Strength Knee Manual Muscle Testing Left Flexion (S2) 4 Good Extension (L3) 4 Good Comments Pt sitting Right Flexion (S2) 5 Normal Extension (L3) 5 Normal Comments Pt sitting Ankle/Foot Strength Ankle and Foot Manual Muscle Testing Left Dorsiflexion (L4) 5 Normal Right Dorsiflexion (L4) 5 Normal Toe Strength Toe Manual Muscle Testing Great Toe Extension 3+ Fair+ Right Great Toe Extension 4 Good PT-OP-O Vestibular Start: 08/22/20 07:37 Freq: Status: Active Protocol: Document 08/23/20 12:13 MB (Rec: 08/23/20 14:14 MB [id number]) Vestibular Assessment Visual Testing Smooth Pursuits Horizontal Normal Smooth Pursuits Vertical Normal Gaze Evoked Nystagmus With Fixation Negative Convergence Test R impaired Spontaneous Nystagmus Negative Comments Vestibular Comments Left pupil with decreased reactivity to pen light but very minimal PT-OP-Q Treatments Start: 08/22/20 07:37 Freq: Status: Active Protocol: Document 09/21/20 12:50 MB (Rec: 09/21/20 13:52 MB [id number]) Manual Therapy Treatment Other Other Manual Treatments Pt agrees to Counterstrain to assess and treat fascial tension. PT does not treat over the right temporal/ parietal area. Pt presents with tension in the following fascial systems: spinal vein extension, spinal medullary vein, upper cervical perisoteal and ALL and PT treats stacks in those systems . Pt responds well initially after treatment and will con't to monitor. PT-OP-T Assessment and Plan Start: 08/22/20 07:37 Freq: Status: Active Protocol: Document 09/21/20 12:50 MB (Rec: 09/21/20 13:52 MB [id number]) Physical Therapy Assessment Rehab Potential Rehabilitation Potential Fair Evaluation Complexity Number of Personal Factors/Comorbidities 1-2 Number of Body Systems Impaired 3 Clinical Presentation at Evaluation Evolving Impairments Impairments Activity Tolerance,Balance, Edema,Gait,Integument,Pain, Posture,ROM,Sensation,Soft Tissue Mobility,Strength, Vestibular Other Impairments Personal factors: headache, decreased memory, slow speech. Body systems affected include musculoskeletal, neuromuscular, arterial. Her clinical presentation is not yet stable after brain surgery . Other Concerns Fall Risk Yes Goals 5 Mill Oiler Goal (LTG) Pt will gait train at least 1400 feet in 6 minutes without AD and no LOB by 10/21/2020. LTG Duration 8 weeks 4 Mill Oiler Goal (LTG) Pt will perform progressive HEP with I including postural, flexibility, balance, LE strengthening, breathing, and VOR exercises to decrease symptoms and improve balance by 10/21/2020. LTG Duration 8 weeks 3 Intermediate Goal (LTG) Pt will present with improved left shoulder flexion, left hip flexion, left knee flexion and left great toe extension to 5/5 to improve balance by . LTG Duration 8 weeks 2 Intermediate Goal (LTG) Pt will report a 70% improvement in dizziness and headache symptoms to allow return to PLOF by 10/21/2020. LTG Duration 8 weeks 1 Intermediate Goal (LTG) Pt will perform WNLs on FGA to decrease fall risk and improve balance by 10/21/2020. LTG Duration 8 weeks Assessment Summary Assessment Ed pt in benefits of setting alarm to wake up earlier to see if less time sleeping helps headaches and increase fluid intake and electrolytes per surgeon rec. Pt responds well to Counterstrain today and ed pt in how to assess and treat for fascial position of least resistance at home. Con 't balance training and manual work. Physical Therapy Plan Frequency and Duration Frequency of Treatment 1-2x/wk Duration of Treatment 8 weeks Plan of Care Start Date 09/12/20 Plan of Care End Date 11/14/20 Therapeutic Interventions Therapeutic Interventions Balance Training,Canalithic Repositioning,Coordination Training,Gait Training,Home Exercise Program,Joint Mobilizations,Manual Therapy, Neuromuscular Re-education, Patient/Caregiver Education, Self-Care/Home Management, Sensory Integration,Soft Tissue Mobilization,Taping, Therapeutic Activities, Therapeutic Exercises, Vestibular Rehabilitation Modalities Cold Pack/Ice Massage,Electric Stimulation,Hot Packs, Ultrasound Next Visit Focus/Plan Next Note Type Treatment Note Next Visit Plan Ongoing Ongoing balance and gait outside. Counterstrain/ suboccipital release as appropriate. Review previous HEP for applicability and consider wall squat for home
--- NOTE | 2020-10-12 09:49 | PT.OTN ---
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) Headache, unspecified (10/12/20) Weakness (10/12/20) Concussion with loss of consciousness of unspecified duration, subsequent encounter (10/12/20) Physical Therapy Treatment Note PT-OP-A Visit Information Start: 08/22/20 07:37 Freq: Status: Active Protocol: Document 10/12/20 09:01 MB (Rec: 10/12/20 09:39 MB [id number]) Out-Patient Physical Therapy Visit Information Visit Information Visit Type Treatment Note Visit Note 24 combined visits PT/OT Visit Start Time 09:01 Visit Stop Time 09:45 Total Visit Minutes 44 Visit Number 12/22 Precautions Precautions BP kept between 110/140/70-90, s/p right craniotomy PT-OP-B Current Condition Start: 08/22/20 07:37 Freq: Status: Active Protocol: Document 08/23/20 12:13 MB (Rec: 08/23/20 13:04 MB [id number]) Current Condition History of Current Condition Onset Date Surgery 07/27/20 Current Complaints Dizziness, light-headedness, ETIENNE and left leg pain and imbalance History of Current Condition 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 Pt had fall and concussion then as passed out. In PMH, pt writes back pain, superficial blood clot right LE, ulcers. Current complaints include: dizziness when active (walking and movements of neck), decreased processing words, headaches managed by medications, trouble opening right side of jaw post-op, neck pain and stiffness. Pt denies falls since surgery. Pt is wearing an ice hat. Pt reports pain right side of head, left jaw and left thigh. ETIENNE pain gets up to 5/10 with medication. Her neck pain is 4 /10. Left leg pain gets up to 7/10. She reports left leg pain as deep and shooting. Pt reports pain with walking on left leg. Pt reports that her left leg feels weak. The Cymbalta helps with nerve pain . Pt reports that her right eye brown does not yet move after surgery and the right side of her head is swollen. Mother states that pt still does not have any appetite. Treatment Goals Patient/Caregiver Goals Decrease pain, increase balance and leg strength. PT-OP-C Subjective Start: 08/22/20 07:37 Freq: Status: Active Protocol: Document 10/12/20 09:01 MB (Rec: 10/12/20 09:39 MB [id number]) OP-PT Subjective Patient Comments Patient Comments Pt missed PT d/t severe headaches including shooting thunderbolt pain in right eye after stopping medication with caffeine and ibuprofen. The symptoms changed to only happening with change in position down and up. Then, her headaches returned to her headaches and she was less nauseated. Pt is out walking with her dog. She is using wonder walker. She saw the headache specialist and he wants her to increase one of her migraine medications ( Naminda). He also recommended another medication that the insurance is not approving. She saw her neurologist in [place] and she did not say anything. Shun has not made any other recommendations (only to see headache specialist that she did). Pt is occ biking slowly 1/2 mile there and back with her boyfriend and dog jogging beside her. PT-OP-D Balance Start: 08/22/20 07:37 Freq: Status: Active Protocol: Document 08/23/20 12:13 MB (Rec: 08/23/20 14:14 MB [id number]) Balance Tests Romberg Romberg LOB to the right and then the left, socks and no shoes PT-OP-G Mobility & Gait Start: 08/22/20 07:37 Freq: Status: Active Protocol: Document 08/23/20 12:13 MB (Rec: 08/23/20 14:14 MB [id number]) OP Gait Assessment Gait Gait Assistance Required: Independent Distance (Feet) 50 Able to Maintain Weight Bearing Status Yes During Gait Assistive Devices Assistive Device None Orthotic/Prosthetic Devices or Brace: No Gait Deviations General Gait Pattern Decreased Stride Length Factors Limiting Gait Function Factors Limiting Gait Function Decreased Strength,Pain,Poor Balance Comments Gait Comments Pt favors the left leg, looks down at the floor, presents with hesitancy with gait PT-OP-H Neuro Start: 08/22/20 07:37 Freq: Status: Active Protocol: Document 08/23/20 12:13 MB (Rec: 08/23/20 14:14 MB [id number]) Sensation Evaluation Comments Summary Comments Pt reports numbness right temporal area and eye brow Coordination Evaluation Upper Extremity Tests Right Finger to Nose Test Normal Performance Pronation/Supination Test Normal Performance Left Finger to Nose Test Normal Performance Pronation/Supination Test Minimal Impairment Comments Coordination Comments Right toe tapping over opposite foot normal x5 reps, rapid and accurate. Slow with left toe tapping over right foot and inaccurate, given for exercise for home: 10 reps every hour when sitting Vital Signs Pulse 1 Pulse at Rest (bpm) 77 Pulse Assessment Method Cuff Blood Pressure Sitting Blood Pressure (90/60-120/80 mmHg) 132/90 H Blood Pressure Source Automatic Cuff,Right Upper Extremity Comments Vital Signs Comments Doctor note for BP written under precautions, pt is in recommended range today PT-OP-K Range of Motion Start: 08/22/20 07:37 Freq: Status: Active Protocol: Document 08/23/20 12:13 MB (Rec: 08/23/20 14:14 MB [id number]) TMJ Range of Motion Comments Comments R eyebrow does not raise, can minimally lower. Pt presents with mild right jaw deviation and minimal dropping of left side of mouth with smile Toe Range of Motion Toes ROM Limitations Comments Decreased active left great toe extension compared to the right PT-OP-M Strength Start: 08/22/20 07:37 Freq: Status: Active Protocol: Document 08/23/20 12:13 MB (Rec: 08/23/20 14:14 MB [id number]) Shoulder Strength Shoulder Manual Muscle Testing Left Flexion 4 Good Abduction (C5) 5 Normal Adduction 5 Normal Right Flexion 4 Good Abduction (C5) 5 Normal Elbow/Forearm Strength Elbow and Forearm Manual Muscle Testing Left Flexion (C6) 4 Good Extension (C7) 5 Normal Right Flexion (C6) 4 Good Extension (C7) 5 Normal Wrist Strength Wrist Manual Muscle Testing Left Flexion (C7) 4 Good Extension (C6) 4 Good Right Flexion (C7) 5 Normal Extension (C6) 5 Normal Hip Strength Hip Manual Muscle Testing Left Flexion (L2) 3+ Fair+ Comments Pt sitting Right Flexion (L2) 4 Good Comments Pt sitting Knee Strength Knee Manual Muscle Testing Left Flexion (S2) 4 Good Extension (L3) 4 Good Comments Pt sitting Right Flexion (S2) 5 Normal Extension (L3) 5 Normal Comments Pt sitting Ankle/Foot Strength Ankle and Foot Manual Muscle Testing Left Dorsiflexion (L4) 5 Normal Right Dorsiflexion (L4) 5 Normal Toe Strength Toe Manual Muscle Testing Great Toe Extension 3+ Fair+ Right Great Toe Extension 4 Good PT-OP-O Vestibular Start: 08/22/20 07:37 Freq: Status: Active Protocol: Document 08/23/20 12:13 MB (Rec: 08/23/20 14:14 MB [id number]) Vestibular Assessment Visual Testing Smooth Pursuits Horizontal Normal Smooth Pursuits Vertical Normal Gaze Evoked Nystagmus With Fixation Negative Convergence Test R impaired Spontaneous Nystagmus Negative Comments Vestibular Comments Left pupil with decreased reactivity to pen light but very minimal PT-OP-Q Treatments Start: 08/22/20 07:37 Freq: Status: Active Protocol: Document 10/12/20 09:01 MB (Rec: 10/12/20 09:39 MB [id number]) Manual Therapy Treatment Other Other Manual Treatments Pt agrees to Counterstrain to assess and treat fascial tension. PT does not treat over the right parietal/ temporal area. Pt presents with tension in AINTs, spinal medullary veins and standard row veins and spinal vein extension and treated stacks in these systems. Pt responds well immediately after treatment. Suboccipital release. PT-OP-T Assessment and Plan Start: 08/22/20 07:37 Freq: Status: Active Protocol: Document 10/12/20 09:01 MB (Rec: 10/12/20 09:39 MB [id number]) Physical Therapy Assessment Rehab Potential Rehabilitation Potential Fair Evaluation Complexity Number of Personal Factors/Comorbidities 1-2 Number of Body Systems Impaired 3 Clinical Presentation at Evaluation Evolving Impairments Impairments Activity Tolerance,Balance, Edema,Gait,Integument,Pain, Posture,ROM,Sensation,Soft Tissue Mobility,Strength, Vestibular Other Impairments Personal factors: headache, decreased memory, slow speech. Body systems affected include musculoskeletal, neuromuscular, arterial. Her clinical presentation is not yet stable after brain surgery . Other Concerns Fall Risk Yes Goals 5 Halfway Goal (LTG) Pt will gait train at least 1400 feet in 6 minutes without AD and no LOB by 10/21/2020. LTG Duration 8 weeks 4 Automation Control Technician Goal (LTG) Pt will perform progressive HEP with I including postural, flexibility, balance, LE strengthening, breathing, and VOR exercises to decrease symptoms and improve balance by 10/21/2020. LTG Duration 8 weeks 3 Automation Control Technician Goal (LTG) Pt will present with improved left shoulder flexion, left hip flexion, left knee flexion and left great toe extension to 5/5 to improve balance by . LTG Duration 8 weeks 2 Halfway Goal (LTG) Pt will report a 70% improvement in dizziness and headache symptoms to allow return to PLOF by 10/21/2020. LTG Duration 8 weeks 1 Halfway Goal (LTG) Pt will perform WNLs on FGA to decrease fall risk and improve balance by 10/21/2020. LTG Duration 8 weeks Assessment Summary Assessment Counterstrain today and PT con 't to decrease palpation to pt 's right parietal and temporal areas. She does have fascial tightness of the right parietal, temporal and occipital bones. She responds well to Counterstrain intervention today. Con't balance training and manual work. Physical Therapy Plan Frequency and Duration Frequency of Treatment 1-2x/wk Duration of Treatment 8 weeks Plan of Care Start Date 09/12/20 Plan of Care End Date 11/14/20 Therapeutic Interventions Therapeutic Interventions Balance Training,Canalithic Repositioning,Coordination Training,Gait Training,Home Exercise Program,Joint Mobilizations,Manual Therapy, Neuromuscular Re-education, Patient/Caregiver Education, Self-Care/Home Management, Sensory Integration,Soft Tissue Mobilization,Taping, Therapeutic Activities, Therapeutic Exercises, Vestibular Rehabilitation Modalities Cold Pack/Ice Massage,Electric Stimulation,Hot Packs, Ultrasound Next Visit Focus/Plan Next Note Type Treatment Note Next Visit Plan Ongoing Ongoing balance and gait outside. Counterstrain/ suboccipital release as appropriate.
--- NOTE | 2020-10-19 16:03 | PT.OTN ---
Current Diagnoses Moyamoya disease (10/19/20) Headache, unspecified (10/19/20) Weakness (10/19/20) Concussion with loss of consciousness of unspecified duration, subsequent encounter (10/19/20) Physical Therapy Treatment Note PT-OP-A Visit Information Start: 08/22/20 07:37 Freq: Status: Active Protocol: Document 10/19/20 12:17 MB (Rec: 10/19/20 15:50 MB [id number]) Out-Patient Physical Therapy Visit Information Visit Information Visit Type Treatment Note Visit Note 24 combined visits PT/OT Visit Start Time 12:17 Visit Stop Time 13:00 Total Visit Minutes 43 Visit Number 01/21 Precautions Precautions BP kept between 110/140/70-90, s/p right craniotomy PT-OP-B Current Condition Start: 08/22/20 07:37 Freq: Status: Active Protocol: Document 08/23/20 12:13 MB (Rec: 08/23/20 13:04 MB [id number]) Current Condition History of Current Condition Onset Date Surgery 07/27/20 Current Complaints Dizziness, light-headedness, ETIENNE and left leg pain and imbalance History of Current Condition 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 Pt had fall and concussion then as passed out. In PMH, pt writes back pain, superficial blood clot right LE, ulcers. Current complaints include: dizziness when active (walking and movements of neck), decreased processing words, headaches managed by medications, trouble opening right side of jaw post-op, neck pain and stiffness. Pt denies falls since surgery. Pt is wearing an ice hat. Pt reports pain right side of head, left jaw and left thigh. ETIENNE pain gets up to 5/10 with medication. Her neck pain is 4 /10. Left leg pain gets up to 7/10. She reports left leg pain as deep and shooting. Pt reports pain with walking on left leg. Pt reports that her left leg feels weak. The Cymbalta helps with nerve pain . Pt reports that her right eye brown does not yet move after surgery and the right side of her head is swollen. Mother states that pt still does not have any appetite. Treatment Goals Patient/Caregiver Goals Decrease pain, increase balance and leg strength. PT-OP-C Subjective Start: 08/22/20 07:37 Freq: Status: Active Protocol: Document 10/19/20 12:17 MB (Rec: 10/19/20 15:50 MB [id number]) OP-PT Subjective Patient Comments Patient Comments Pt arrives with dog to practice gait and balance outside with him. She is feeling good physically and is having trouble with abstract word-finding. PT-OP-D Balance Start: 08/22/20 07:37 Freq: Status: Active Protocol: Document 08/23/20 12:13 MB (Rec: 08/23/20 14:14 MB [id number]) Balance Tests Romberg Romberg LOB to the right and then the left, socks and no shoes PT-OP-G Mobility & Gait Start: 08/22/20 07:37 Freq: Status: Active Protocol: Document 08/23/20 12:13 MB (Rec: 08/23/20 14:14 MB [id number]) OP Gait Assessment Gait Gait Assistance Required: Independent Distance (Feet) 50 Able to Maintain Weight Bearing Status Yes During Gait Assistive Devices Assistive Device None Orthotic/Prosthetic Devices or Brace: No Gait Deviations General Gait Pattern Decreased Stride Length Factors Limiting Gait Function Factors Limiting Gait Function Decreased Strength,Pain,Poor Balance Comments Gait Comments Pt favors the left leg, looks down at the floor, presents with hesitancy with gait PT-OP-H Neuro Start: 08/22/20 07:37 Freq: Status: Active Protocol: Document 08/23/20 12:13 MB (Rec: 08/23/20 14:14 MB [id number]) Sensation Evaluation Comments Summary Comments Pt reports numbness right temporal area and eye brow Coordination Evaluation Upper Extremity Tests Right Finger to Nose Test Normal Performance Pronation/Supination Test Normal Performance Left Finger to Nose Test Normal Performance Pronation/Supination Test Minimal Impairment Comments Coordination Comments Right toe tapping over opposite foot normal x5 reps, rapid and accurate. Slow with left toe tapping over right foot and inaccurate, given for exercise for home: 10 reps every hour when sitting Vital Signs Pulse 1 Pulse at Rest (bpm) 77 Pulse Assessment Method Cuff Blood Pressure Sitting Blood Pressure (90/60-120/80 mmHg) 132/90 H Blood Pressure Source Automatic Cuff,Right Upper Extremity Comments Vital Signs Comments Doctor note for BP written under precautions, pt is in recommended range today PT-OP-K Range of Motion Start: 08/22/20 07:37 Freq: Status: Active Protocol: Document 08/23/20 12:13 MB (Rec: 08/23/20 14:14 MB [id number]) TMJ Range of Motion Comments Comments R eyebrow does not raise, can minimally lower. Pt presents with mild right jaw deviation and minimal dropping of left side of mouth with smile Toe Range of Motion Toes ROM Limitations Comments Decreased active left great toe extension compared to the right PT-OP-M Strength Start: 08/22/20 07:37 Freq: Status: Active Protocol: Document 08/23/20 12:13 MB (Rec: 08/23/20 14:14 MB [id number]) Shoulder Strength Shoulder Manual Muscle Testing Left Flexion 4 Good Abduction (C5) 5 Normal Adduction 5 Normal Right Flexion 4 Good Abduction (C5) 5 Normal Elbow/Forearm Strength Elbow and Forearm Manual Muscle Testing Left Flexion (C6) 4 Good Extension (C7) 5 Normal Right Flexion (C6) 4 Good Extension (C7) 5 Normal Wrist Strength Wrist Manual Muscle Testing Left Flexion (C7) 4 Good Extension (C6) 4 Good Right Flexion (C7) 5 Normal Extension (C6) 5 Normal Hip Strength Hip Manual Muscle Testing Left Flexion (L2) 3+ Fair+ Comments Pt sitting Right Flexion (L2) 4 Good Comments Pt sitting Knee Strength Knee Manual Muscle Testing Left Flexion (S2) 4 Good Extension (L3) 4 Good Comments Pt sitting Right Flexion (S2) 5 Normal Extension (L3) 5 Normal Comments Pt sitting Ankle/Foot Strength Ankle and Foot Manual Muscle Testing Left Dorsiflexion (L4) 5 Normal Right Dorsiflexion (L4) 5 Normal Toe Strength Toe Manual Muscle Testing Great Toe Extension 3+ Fair+ Right Great Toe Extension 4 Good PT-OP-O Vestibular Start: 08/22/20 07:37 Freq: Status: Active Protocol: Document 08/23/20 12:13 MB (Rec: 08/23/20 14:14 MB [id number]) Vestibular Assessment Visual Testing Smooth Pursuits Horizontal Normal Smooth Pursuits Vertical Normal Gaze Evoked Nystagmus With Fixation Negative Convergence Test R impaired Spontaneous Nystagmus Negative Comments Vestibular Comments Left pupil with decreased reactivity to pen light but very minimal PT-OP-Q Treatments Start: 08/22/20 07:37 Freq: Status: Active Protocol: Document 10/19/20 12:17 MB (Rec: 10/19/20 16:00 MB [id number]) Gait Training Gait Activity Dog training/gait training Description Balance, safety and gait training with pt and her dog, which is pt goal Comments Pt brings Rashaun to PT treatment and she is gait training much better. Pt drives herself to appointment, manages dog, dog leash, correcting him on the leash in both hands and dog walking on the left: pt is able to gait train in the parking lot, on the grass, gravel lot and side walk with superv asst from PT. She is able to squat x2 without reports of headache and she uses very wide VALENTE. She requires sitting rest break on the grass after 10' walking and then is able to return to gait training. Pt reports some light-headedness with getting up from sitting. She does not lose balance with gait, is able to increase gait speed slightly and is not pulled off balance when Rashaun pulls on the leash. PT provides occ cues for stephen speed, scanning for safety and quicker correction on the leash and not allowing Rashaun to pull at all times in order to improve safety with gait Self-Care/Home Management Treatment Education Other Education Short walks with Rashaun and walking safely with quicker gait as possible, PT goals for further balance and gait training with pt alone including 6MWT, FGA and hip and ankle strengthening with bands, con't non-caffeinated fluid and electrolytes as doctor instructed, squatting instructions PT-OP-T Assessment and Plan Start: 08/22/20 07:37 Freq: Status: Active Protocol: Document 10/19/20 12:17 MB (Rec: 10/19/20 15:50 MB [id number]) Physical Therapy Assessment Rehab Potential Rehabilitation Potential Fair Evaluation Complexity Number of Personal Factors/Comorbidities 1-2 Number of Body Systems Impaired 3 Clinical Presentation at Evaluation Evolving Impairments Impairments Activity Tolerance,Balance, Edema,Gait,Integument,Pain, Posture,ROM,Sensation,Soft Tissue Mobility,Strength, Vestibular Other Impairments Personal factors: headache, decreased memory, slow speech. Body systems affected include musculoskeletal, neuromuscular, arterial. Her clinical presentation is not yet stable after brain surgery . Other Concerns Fall Risk Yes Goals 5 Fdc Goal (LTG) Pt will gait train at least 1400 feet in 6 minutes without AD and no LOB by 12/19/2020. 10/19/20: Deferred this test today in favor of gait and balance outside and pt is able to gait with her dog on leash to the left in grass, side walk and parking lot with superv to I today, no LOB, does need rest break after 10' LTG Duration 8 weeks 4 Fdc Goal (LTG) Pt will perform progressive HEP with I including postural, flexibility, balance, LE strengthening, breathing, and VOR exercises to decrease symptoms and improve balance by 12/19/2020. 10/19/20: Pt is performing breathing, racquet ball massage and dog walking at home. LTG Duration 8 weeks 3 Fdc Goal (LTG) Pt will present with improved left shoulder flexion, left hip flexion, left knee flexion and left great toe extension to 5/5 to improve balance by . 10/19/20: Deferred MMT today outside LTG Duration 8 weeks 2 Fdc Goal (LTG) Pt will report a 70% improvement in dizziness and headache symptoms to allow return to PLOF by 12/19/20. 10/19/20: Pt reports that her dizziness is improving but does not rate today LTG Duration 8 weeks 1 Steam Pipe Fitter Goal (LTG) Pt will perform WNLs on FGA to decrease fall risk and improve balance by 12/19/20. 10/19/20: FGA deferred today in order to perform further gait and balance training with dog outside LTG Duration 8 weeks Assessment Summary Assessment Pt is able to manage her dog on leash on her left today without assistance in grass, sidewalk and through parking lot. PT provides superv assist only and this is much improved to previous gait training treatment. She is getting out walking her dog each day for short periods of time. It makes her tired and she has headaches but she states that she feels better. She reports ongoing word- finding/abstract thinking difficulty as well as quick fatigue. She will benefit from ongoing PT to improve balance , gait, strength and quality of life. Barriers include headache, cognitive challenges , fatigue and post-op craniotomy. Physical Therapy Plan Frequency and Duration Frequency of Treatment 1x/Week Duration of Treatment 8 weeks Plan of Care Start Date 10/19/20 Plan of Care End Date 12/19/20 Therapeutic Interventions Therapeutic Interventions Balance Training,Canalithic Repositioning,Coordination Training,Gait Training,Home Exercise Program,Joint Mobilizations,Manual Therapy, Neuromuscular Re-education, Patient/Caregiver Education, Self-Care/Home Management, Sensory Integration,Soft Tissue Mobilization,Taping, Therapeutic Activities, Therapeutic Exercises, Vestibular Rehabilitation Modalities Cold Pack/Ice Massage,Electric Stimulation,Hot Packs, Ultrasound Next Visit Focus/Plan Next Note Type Treatment Note Next Visit Plan FGA, 6MWT, hip and ankle strengthening with theraband/ balance exercises in standing
--- NOTE | 2020-10-19 16:04 | PT.OPPOC ---
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) Headache, unspecified (10/19/20) Weakness (10/19/20) Concussion with loss of consciousness of unspecified duration, subsequent encounter (10/19/20) Visit Care Team Role Provider Type Christen Figueroa PA-C Primary Care Provider Non-Staff Specialty: Family Practice Address: [address], [address], [place], [address] Email: TONE Riley Attending Provider Non-Staff Referring Provider Specialty: Nursing Address: [address] [place] [address] [address], [place], [address] Email: Plan Of Care PT-OP-T Assessment and Plan Start: 08/22/20 07:37 Freq: Status: Active Protocol: Document 10/19/20 12:17 MB (Rec: 10/19/20 15:50 MB [id number]) Physical Therapy Assessment Rehab Potential Rehabilitation Potential Fair Evaluation Complexity Number of Personal Factors/Comorbidities 1-2 Number of Body Systems Impaired 3 Clinical Presentation at Evaluation Evolving Impairments Impairments Activity Tolerance,Balance, Edema,Gait,Integument,Pain, Posture,ROM,Sensation,Soft Tissue Mobility,Strength, Vestibular Other Impairments Personal factors: headache, decreased memory, slow speech. Body systems affected include musculoskeletal, neuromuscular, arterial. Her clinical presentation is not yet stable after brain surgery . Other Concerns Fall Risk Yes Goals 5 Vice President Of Academic Affairs Goal (LTG) Pt will gait train at least 1400 feet in 6 minutes without AD and no LOB by 12/19/2020. 10/19/20: Deferred this test today in favor of gait and balance outside and pt is able to gait with her dog on leash to the left in grass, side walk and parking lot with superv to I today, no LOB, does need rest break after 10' LTG Duration 8 weeks 4 Half-Way Goal (LTG) Pt will perform progressive HEP with I including postural, flexibility, balance, LE strengthening, breathing, and VOR exercises to decrease symptoms and improve balance by 12/19/2020. 10/19/20: Pt is performing breathing, racquet ball massage and dog walking at home. LTG Duration 8 weeks 3 Half-Way Goal (LTG) Pt will present with improved left shoulder flexion, left hip flexion, left knee flexion and left great toe extension to 5/5 to improve balance by . 10/19/20: Deferred MMT today outside LTG Duration 8 weeks 2 Vice President Of [employer] Goal (LTG) Pt will report a 70% improvement in dizziness and headache symptoms to allow return to PLOF by 12/19/20. 10/19/20: Pt reports that her dizziness is improving but does not rate today LTG Duration 8 weeks 1 Half-Way Goal (LTG) Pt will perform WNLs on FGA to decrease fall risk and improve balance by 12/19/20. 10/19/20: FGA deferred today in order to perform further gait and balance training with dog outside LTG Duration 8 weeks Assessment Summary Assessment Pt is able to manage her dog on leash on her left today without assistance in grass, sidewalk and through parking lot. PT provides superv assist only and this is much improved to previous gait training treatment. She is getting out walking her dog each day for short periods of time. It makes her tired and she has headaches but she states that she feels better. She reports ongoing word- finding/abstract thinking difficulty as well as quick fatigue. She will benefit from ongoing PT to improve balance , gait, strength and quality of life. Barriers include headache, cognitive challenges , fatigue and post-op craniotomy. Physical Therapy Plan Frequency and Duration Frequency of Treatment 1x/Week Duration of Treatment 8 weeks Plan of Care Start Date 10/19/20 Plan of Care End Date 12/19/20 Therapeutic Interventions Therapeutic Interventions Balance Training,Canalithic Repositioning,Coordination Training,Gait Training,Home Exercise Program,Joint Mobilizations,Manual Therapy, Neuromuscular Re-education, Patient/Caregiver Education, Self-Care/Home Management, Sensory Integration,Soft Tissue Mobilization,Taping, Therapeutic Activities, Therapeutic Exercises, Vestibular Rehabilitation Modalities Cold Pack/Ice Massage,Electric Stimulation,Hot Packs, Ultrasound Next Visit Focus/Plan Next Note Type Treatment Note Next Visit Plan FGA, 6MWT, hip and ankle strengthening with theraband/ balance exercises in standing Plan of Care Dates Plan of Care Start Date 10/19/20 Plan of Care End Date 12/19/20 Electronically Signed by: Donita Cruz, PT 10/19/20 1604 Please Sign and Return: I have reviewed this Plan of Care and certify that the skilled therapy services above are required to meet the patient?s needs. Physician Signature Date Printed Name and Credentials Clinical Instructor Signature Printed Name and Credentials
--- NOTE | 2020-10-26 15:34 | PT.OTN ---
Current Diagnoses Moyamoya disease (10/26/20) Headache, unspecified (10/26/20) Weakness (10/26/20) Concussion with loss of consciousness of unspecified duration, subsequent encounter (10/26/20) Physical Therapy Treatment Note PT-OP-A Visit Information Start: 08/22/20 07:37 Freq: Status: Active Protocol: Document 10/26/20 12:16 MB (Rec: 10/26/20 13:01 MB [id number]) Out-Patient Physical Therapy Visit Information Visit Information Visit Type Treatment Note Visit Start Time 12:16 Visit Stop Time 12:57 Total Visit Minutes 41 Visit Number 02/21 Precautions Precautions BP kept between 110/140/70-90, s/p right craniotomy PT-OP-B Current Condition Start: 08/22/20 07:37 Freq: Status: Active Protocol: Document 08/23/20 12:13 MB (Rec: 08/23/20 13:04 MB [id number]) Current Condition History of Current Condition Onset Date Surgery 07/27/20 Current Complaints Dizziness, light-headedness, ETIENNE and left leg pain and imbalance History of Current Condition 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 Pt had fall and concussion then as passed out. In PMH, pt writes back pain, superficial blood clot right LE, ulcers. Current complaints include: dizziness when active (walking and movements of neck), decreased processing words, headaches managed by medications, trouble opening right side of jaw post-op, neck pain and stiffness. Pt denies falls since surgery. Pt is wearing an ice hat. Pt reports pain right side of head, left jaw and left thigh. ETIENNE pain gets up to 5/10 with medication. Her neck pain is 4 /10. Left leg pain gets up to 7/10. She reports left leg pain as deep and shooting. Pt reports pain with walking on left leg. Pt reports that her left leg feels weak. The Cymbalta helps with nerve pain . Pt reports that her right eye brown does not yet move after surgery and the right side of her head is swollen. Mother states that pt still does not have any appetite. Treatment Goals Patient/Caregiver Goals Decrease pain, increase balance and leg strength. PT-OP-C Subjective Start: 08/22/20 07:37 Freq: Status: Active Protocol: Document 10/26/20 12:16 MB (Rec: 10/26/20 13:01 MB [id number]) OP-PT Subjective Patient Comments Patient Comments Pt states that she feels well enough to do gait and balance exercises outside. PT-OP-D Balance Start: 08/22/20 07:37 Freq: Status: Active Protocol: Document 08/23/20 12:13 MB (Rec: 08/23/20 14:14 MB [id number]) Balance Tests Romberg Romberg LOB to the right and then the left, socks and no shoes PT-OP-G Mobility & Gait Start: 08/22/20 07:37 Freq: Status: Active Protocol: Document 08/23/20 12:13 MB (Rec: 08/23/20 14:14 MB [id number]) OP Gait Assessment Gait Gait Assistance Required: Independent Distance (Feet) 50 Able to Maintain Weight Bearing Status Yes During Gait Assistive Devices Assistive Device None Orthotic/Prosthetic Devices or Brace: No Gait Deviations General Gait Pattern Decreased Stride Length Factors Limiting Gait Function Factors Limiting Gait Function Decreased Strength,Pain,Poor Balance Comments Gait Comments Pt favors the left leg, looks down at the floor, presents with hesitancy with gait PT-OP-H Neuro Start: 08/22/20 07:37 Freq: Status: Active Protocol: Document 08/23/20 12:13 MB (Rec: 08/23/20 14:14 MB [id number]) Sensation Evaluation Comments Summary Comments Pt reports numbness right temporal area and eye brow Coordination Evaluation Upper Extremity Tests Right Finger to Nose Test Normal Performance Pronation/Supination Test Normal Performance Left Finger to Nose Test Normal Performance Pronation/Supination Test Minimal Impairment Comments Coordination Comments Right toe tapping over opposite foot normal x5 reps, rapid and accurate. Slow with left toe tapping over right foot and inaccurate, given for exercise for home: 10 reps every hour when sitting Vital Signs Pulse 1 Pulse at Rest (bpm) 77 Pulse Assessment Method Cuff Blood Pressure Sitting Blood Pressure (90/60-120/80 mmHg) 132/90 H Blood Pressure Source Automatic Cuff,Right Upper Extremity Comments Vital Signs Comments Doctor note for BP written under precautions, pt is in recommended range today PT-OP-K Range of Motion Start: 08/22/20 07:37 Freq: Status: Active Protocol: Document 08/23/20 12:13 MB (Rec: 08/23/20 14:14 MB [id number]) TMJ Range of Motion Comments Comments R eyebrow does not raise, can minimally lower. Pt presents with mild right jaw deviation and minimal dropping of left side of mouth with smile Toe Range of Motion Toes ROM Limitations Comments Decreased active left great toe extension compared to the right PT-OP-M Strength Start: 08/22/20 07:37 Freq: Status: Active Protocol: Document 08/23/20 12:13 MB (Rec: 08/23/20 14:14 MB [id number]) Shoulder Strength Shoulder Manual Muscle Testing Left Flexion 4 Good Abduction (C5) 5 Normal Adduction 5 Normal Right Flexion 4 Good Abduction (C5) 5 Normal Elbow/Forearm Strength Elbow and Forearm Manual Muscle Testing Left Flexion (C6) 4 Good Extension (C7) 5 Normal Right Flexion (C6) 4 Good Extension (C7) 5 Normal Wrist Strength Wrist Manual Muscle Testing Left Flexion (C7) 4 Good Extension (C6) 4 Good Right Flexion (C7) 5 Normal Extension (C6) 5 Normal Hip Strength Hip Manual Muscle Testing Left Flexion (L2) 3+ Fair+ Comments Pt sitting Right Flexion (L2) 4 Good Comments Pt sitting Knee Strength Knee Manual Muscle Testing Left Flexion (S2) 4 Good Extension (L3) 4 Good Comments Pt sitting Right Flexion (S2) 5 Normal Extension (L3) 5 Normal Comments Pt sitting Ankle/Foot Strength Ankle and Foot Manual Muscle Testing Left Dorsiflexion (L4) 5 Normal Right Dorsiflexion (L4) 5 Normal Toe Strength Toe Manual Muscle Testing Great Toe Extension 3+ Fair+ Right Great Toe Extension 4 Good PT-OP-O Vestibular Start: 08/22/20 07:37 Freq: Status: Active Protocol: Document 08/23/20 12:13 MB (Rec: 08/23/20 14:14 MB [id number]) Vestibular Assessment Visual Testing Smooth Pursuits Horizontal Normal Smooth Pursuits Vertical Normal Gaze Evoked Nystagmus With Fixation Negative Convergence Test R impaired Spontaneous Nystagmus Negative Comments Vestibular Comments Left pupil with decreased reactivity to pen light but very minimal PT-OP-Q Treatments Start: 08/22/20 07:37 Freq: Status: Active Protocol: Document 10/26/20 12:16 MB (Rec: 10/26/20 15:33 MB [id number]) Gait Training Gait Activity Gait outside Comments Steps in gym without rail with superv, walking on sidewalk, over curbs, over grass, through parking lot, cues for keeping up stephen as cognitive tasks performed: pt reports trouble with forming abstract thoughts/words and so asked pt to describe a [employer] movie so that PT could guess the title. The first two times, she says the name of the title in her description. She is able to do better with words and not say the title with future trials. PT also gives clues so that pt can guess the title of the movie. Her stephen does decrease occ with cognitive task. No LOB with gait, only with balance challenge training today Neuro Re-Education Treatment Balance Activities Backwards stepping, side stepping, stepping around parking stops Comments Pt requires close superv to CGA for backwards walking and side stepping and then side stepping with direction change right side stepping to left side stepping and then backwards walking to forward walking with cues for changing direction quickly. Pt has most trouble with stopping gait and tends to have a short truncal ataxia response at the end of turning or transitioning. Cues for softening her knees and abdominal drawing in and she does make improvements. Weaving around long parking space stops requires superv and pt can converse during this. One episode of LOB requiring min A with turning at the end of the weave sequence. Forward, backward and side stepping on side walk , flat grass and grass on incline today PT-OP-T Assessment and Plan Start: 08/22/20 07:37 Freq: Status: Active Protocol: Document 10/26/20 12:16 MB (Rec: 10/26/20 13:01 MB [id number]) Physical Therapy Assessment Rehab Potential Rehabilitation Potential Fair Evaluation Complexity Number of Personal Factors/Comorbidities 1-2 Number of Body Systems Impaired 3 Clinical Presentation at Evaluation Evolving Impairments Impairments Activity Tolerance,Balance, Edema,Gait,Integument,Pain, Posture,ROM,Sensation,Soft Tissue Mobility,Strength, Vestibular Other Impairments Personal factors: headache, decreased memory, slow speech. Body systems affected include musculoskeletal, neuromuscular, arterial. Her clinical presentation is not yet stable after brain surgery . Other Concerns Fall Risk Yes Goals 5 Mcc Goal (LTG) Pt will gait train at least 1400 feet in 6 minutes without AD and no LOB by 12/19/2020. 10/19/20: Deferred this test today in favor of gait and balance outside and pt is able to gait with her dog on leash to the left in grass, side walk and parking lot with superv to I today, no LOB, does need rest break after 10' LTG Duration 8 weeks 4 Mcc Goal (LTG) Pt will perform progressive HEP with I including postural, flexibility, balance, LE strengthening, breathing, and VOR exercises to decrease symptoms and improve balance by 12/19/2020. 10/19/20: Pt is performing breathing, racquet ball massage and dog walking at home. LTG Duration 8 weeks 3 Mcc Goal (LTG) Pt will present with improved left shoulder flexion, left hip flexion, left knee flexion and left great toe extension to 5/5 to improve balance by . 10/19/20: Deferred MMT today outside LTG Duration 8 weeks 2 Mcc Goal (LTG) Pt will report a 70% improvement in dizziness and headache symptoms to allow return to PLOF by 12/19/20. 10/19/20: Pt reports that her dizziness is improving but does not rate today LTG Duration 8 weeks 1 Warehouse Traffic Supervisor Goal (LTG) Pt will perform WNLs on FGA to decrease fall risk and improve balance by 12/19/20. 10/19/20: FGA deferred today in order to perform further gait and balance training with dog outside LTG Duration 8 weeks Assessment Summary Assessment Progressed gait and balance exercises outside today. Made tasks more difficult with backwards walking on unstable surfaces, side stepping and cognitive task (with forward gait). Con't balance and gait training. Pt is progressing well. Physical Therapy Plan Frequency and Duration Frequency of Treatment 1x/Week Duration of Treatment 8 weeks Plan of Care Start Date 10/19/20 Plan of Care End Date 12/19/20 Therapeutic Interventions Therapeutic Interventions Balance Training,Canalithic Repositioning,Coordination Training,Gait Training,Home Exercise Program,Joint Mobilizations,Manual Therapy, Neuromuscular Re-education, Patient/Caregiver Education, Self-Care/Home Management, Sensory Integration,Soft Tissue Mobilization,Taping, Therapeutic Activities, Therapeutic Exercises, Vestibular Rehabilitation Modalities Cold Pack/Ice Massage,Electric Stimulation,Hot Packs, Ultrasound Next Visit Focus/Plan Next Note Type Treatment Note Next Visit Plan Similar: FGA, 6MWT, hip and ankle strengthening with theraband/balance exercises in standing
--- NOTE | 2020-11-02 13:12 | PT.OTN ---
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) Headache, unspecified (11/02/20) Weakness (11/02/20) Concussion with loss of consciousness of unspecified duration, subsequent encounter (11/02/20) Physical Therapy Treatment Note PT-OP-A Visit Information Start: 08/22/20 07:37 Freq: Status: Active Protocol: Document 11/02/20 12:15 MB (Rec: 11/02/20 13:11 MB [id number]) Out-Patient Physical Therapy Visit Information Visit Information Visit Type Treatment Note Visit Start Time 12:15 Visit Stop Time 12:55 Total Visit Minutes 40 Visit Number 03/24 Precautions Precautions BP kept between 110/140/70-90, s/p right craniotomy PT-OP-B Current Condition Start: 08/22/20 07:37 Freq: Status: Active Protocol: Document 08/23/20 12:13 MB (Rec: 08/23/20 13:04 MB [id number]) Current Condition History of Current Condition Onset Date Surgery 07/27/20 Current Complaints Dizziness, light-headedness, ETIENNE and left leg pain and imbalance History of Current Condition 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 Pt had fall and concussion then as passed out. In PMH, pt writes back pain, superficial blood clot right LE, ulcers. Current complaints include: dizziness when active (walking and movements of neck), decreased processing words, headaches managed by medications, trouble opening right side of jaw post-op, neck pain and stiffness. Pt denies falls since surgery. Pt is wearing an ice hat. Pt reports pain right side of head, left jaw and left thigh. ETIENNE pain gets up to 5/10 with medication. Her neck pain is 4 /10. Left leg pain gets up to 7/10. She reports left leg pain as deep and shooting. Pt reports pain with walking on left leg. Pt reports that her left leg feels weak. The Cymbalta helps with nerve pain . Pt reports that her right eye brown does not yet move after surgery and the right side of her head is swollen. Mother states that pt still does not have any appetite. Treatment Goals Patient/Caregiver Goals Decrease pain, increase balance and leg strength. PT-OP-C Subjective Start: 08/22/20 07:37 Freq: Status: Active Protocol: Document 11/02/20 12:15 MB (Rec: 11/02/20 13:11 MB [id number]) OP-PT Subjective Patient Comments Patient Comments Pt states that she had a headache after gait training last treatment date. She upped the Namenda and has not started taking her medication that she is supposed to take at onset of headache. PT-OP-D Balance Start: 08/22/20 07:37 Freq: Status: Active Protocol: Document 08/23/20 12:13 MB (Rec: 08/23/20 14:14 MB [id number]) Balance Tests Romberg Romberg LOB to the right and then the left, socks and no shoes PT-OP-G Mobility & Gait Start: 08/22/20 07:37 Freq: Status: Active Protocol: Document 08/23/20 12:13 MB (Rec: 08/23/20 14:14 MB [id number]) OP Gait Assessment Gait Gait Assistance Required: Independent Distance (Feet) 50 Able to Maintain Weight Bearing Status Yes During Gait Assistive Devices Assistive Device None Orthotic/Prosthetic Devices or Brace: No Gait Deviations General Gait Pattern Decreased Stride Length Factors Limiting Gait Function Factors Limiting Gait Function Decreased Strength,Pain,Poor Balance Comments Gait Comments Pt favors the left leg, looks down at the floor, presents with hesitancy with gait PT-OP-H Neuro Start: 08/22/20 07:37 Freq: Status: Active Protocol: Document 08/23/20 12:13 MB (Rec: 08/23/20 14:14 MB [id number]) Sensation Evaluation Comments Summary Comments Pt reports numbness right temporal area and eye brow Coordination Evaluation Upper Extremity Tests Right Finger to Nose Test Normal Performance Pronation/Supination Test Normal Performance Left Finger to Nose Test Normal Performance Pronation/Supination Test Minimal Impairment Comments Coordination Comments Right toe tapping over opposite foot normal x5 reps, rapid and accurate. Slow with left toe tapping over right foot and inaccurate, given for exercise for home: 10 reps every hour when sitting Vital Signs Pulse 1 Pulse at Rest (bpm) 77 Pulse Assessment Method Cuff Blood Pressure Sitting Blood Pressure (90/60-120/80 mmHg) 132/90 H Blood Pressure Source Automatic Cuff,Right Upper Extremity Comments Vital Signs Comments Doctor note for BP written under precautions, pt is in recommended range today PT-OP-K Range of Motion Start: 08/22/20 07:37 Freq: Status: Active Protocol: Document 08/23/20 12:13 MB (Rec: 08/23/20 14:14 MB [id number]) TMJ Range of Motion Comments Comments R eyebrow does not raise, can minimally lower. Pt presents with mild right jaw deviation and minimal dropping of left side of mouth with smile Toe Range of Motion Toes ROM Limitations Comments Decreased active left great toe extension compared to the right PT-OP-M Strength Start: 08/22/20 07:37 Freq: Status: Active Protocol: Document 08/23/20 12:13 MB (Rec: 08/23/20 14:14 MB [id number]) Shoulder Strength Shoulder Manual Muscle Testing Left Flexion 4 Good Abduction (C5) 5 Normal Adduction 5 Normal Right Flexion 4 Good Abduction (C5) 5 Normal Elbow/Forearm Strength Elbow and Forearm Manual Muscle Testing Left Flexion (C6) 4 Good Extension (C7) 5 Normal Right Flexion (C6) 4 Good Extension (C7) 5 Normal Wrist Strength Wrist Manual Muscle Testing Left Flexion (C7) 4 Good Extension (C6) 4 Good Right Flexion (C7) 5 Normal Extension (C6) 5 Normal Hip Strength Hip Manual Muscle Testing Left Flexion (L2) 3+ Fair+ Comments Pt sitting Right Flexion (L2) 4 Good Comments Pt sitting Knee Strength Knee Manual Muscle Testing Left Flexion (S2) 4 Good Extension (L3) 4 Good Comments Pt sitting Right Flexion (S2) 5 Normal Extension (L3) 5 Normal Comments Pt sitting Ankle/Foot Strength Ankle and Foot Manual Muscle Testing Left Dorsiflexion (L4) 5 Normal Right Dorsiflexion (L4) 5 Normal Toe Strength Toe Manual Muscle Testing Great Toe Extension 3+ Fair+ Right Great Toe Extension 4 Good PT-OP-O Vestibular Start: 08/22/20 07:37 Freq: Status: Active Protocol: Document 08/23/20 12:13 MB (Rec: 08/23/20 14:14 MB [id number]) Vestibular Assessment Visual Testing Smooth Pursuits Horizontal Normal Smooth Pursuits Vertical Normal Gaze Evoked Nystagmus With Fixation Negative Convergence Test R impaired Spontaneous Nystagmus Negative Comments Vestibular Comments Left pupil with decreased reactivity to pen light but very minimal PT-OP-Q Treatments Start: 08/22/20 07:37 Freq: Status: Active Protocol: Document 11/02/20 12:15 MB (Rec: 11/02/20 13:11 MB [id number]) Therapeutic Exercises Sitting Exercises Clam with band Side bilateral Reps/Minutes Level 1 band Comments 10 reps slowly, cues to squeeze glutes first LAQ with AP Side bilateral Reps/Minutes Level 1 band Comments 5 reps slowly, 6 APs Ankle DF and eversion Side bilateral Reps/Minutes Level 1 band Comments 10 reps slowly, cues to keep knees straight Gait Training Gait Activity 1 Description 6MWT Comments Pt gait trains 1561 feet in 6 minutes with good speed and no evidence of imbalance in counter clockwise position today. Will con't timed trials as appropriate to progress safe gait outdoors and with her dog Other gait throughout treatment with same improved gait quality today and some challenges with FGA with gait speed changes Neuro Re-Education Treatment Balance Activities FGA Comments Score 19/30 today, which is improved from pre-op with score 17/30 on 05/31/20. Pt has most trouble with tandem gait and most scores being 3/4 rather than 4/4, reducing score today. PT-OP-T Assessment and Plan Start: 08/22/20 07:37 Freq: Status: Active Protocol: Document 11/02/20 12:15 MB (Rec: 11/02/20 13:11 MB [id number]) Physical Therapy Assessment Rehab Potential Rehabilitation Potential Fair Evaluation Complexity Number of Personal Factors/Comorbidities 1-2 Number of Body Systems Impaired 3 Clinical Presentation at Evaluation Evolving Impairments Impairments Activity Tolerance,Balance, Edema,Gait,Integument,Pain, Posture,ROM,Sensation,Soft Tissue Mobility,Strength, Vestibular Other Impairments Personal factors: headache, decreased memory, slow speech. Body systems affected include musculoskeletal, neuromuscular, arterial. Her clinical presentation is not yet stable after brain surgery . Other Concerns Fall Risk Yes Goals 5 Group Home Goal (LTG) Pt will gait train at least 1400 feet in 6 minutes without AD and no LOB by 12/19/2020. 11/02/20: Goal met: pt gait trains 1561 feet in 6 minutes, clockwise direction today and no evidence of imbalance 10/19/20: Deferred this test today in favor of gait and balance outside and pt is able to gait with her dog on leash to the left in grass, side walk and parking lot with superv to I today, no LOB, does need rest break after 10' LTG Duration Met 4 Housekeeping Room Inspector Goal (LTG) Pt will perform progressive HEP with I including postural, flexibility, balance, LE strengthening, breathing, and VOR exercises to decrease symptoms and improve balance by 12/19/2020. 11/02/20: Progressed today and for 3x/wk: ankle DF and eversion, LAQ and clams with level 1 band. Pt has been performing breathing, racquet ball massage and dog walking at home. LTG Duration 8 weeks 3 Group Home Goal (LTG) Pt will present with improved left shoulder flexion, left hip flexion, left knee flexion and left great toe extension to 5/5 to improve balance by . 10/19/20: Deferred MMT today outside LTG Duration 8 weeks 2 Housekeeping Room Inspector Goal (LTG) Pt will report a 70% improvement in dizziness and headache symptoms to allow return to PLOF by 12/19/20. 10/19/20: Pt reports that her dizziness is improving but does not rate today LTG Duration 8 weeks 1 Group Home Goal (LTG) Pt will perform WNLs on FGA to decrease fall risk and improve balance by 12/19/20. 11/02/20: FGA score is 19/30 today which is improved from test 05/31/20 (pre-op) and was 17/30 LTG Duration 8 weeks Assessment Summary Assessment Progressed LE strengthening with band in sitting today. She meets 6MWT goal and re- tested FGA today. She con't with balance impairments with gait with most trouble with tandem gait and symptoms with gait with eyes closed. Con't strengthening, balance and gait training. Physical Therapy Plan Frequency and Duration Frequency of Treatment 1x/Week Duration of Treatment 8 weeks Plan of Care Start Date 10/19/20 Plan of Care End Date 12/19/20 Therapeutic Interventions Therapeutic Interventions Balance Training,Canalithic Repositioning,Coordination Training,Gait Training,Home Exercise Program,Joint Mobilizations,Manual Therapy, Neuromuscular Re-education, Patient/Caregiver Education, Self-Care/Home Management, Sensory Integration,Soft Tissue Mobilization,Taping, Therapeutic Activities, Therapeutic Exercises, Vestibular Rehabilitation Modalities Cold Pack/Ice Massage,Electric Stimulation,Hot Packs, Ultrasound Next Visit Focus/Plan Next Note Type Treatment Note Next Visit Plan Similar: FGA, 6MWT, hip and balance strengthening in standing
--- NOTE | 2020-11-09 12:57 | PT.OTN ---
Current Diagnoses Moyamoya disease (11/09/20) Headache, unspecified (11/09/20) Weakness (11/09/20) Concussion with loss of consciousness of unspecified duration, subsequent encounter (11/09/20) Physical Therapy Treatment Note PT-OP-A Visit Information Start: 08/22/20 07:37 Freq: Status: Active Protocol: Document 11/09/20 12:15 MB (Rec: 11/09/20 12:53 MB [id number]) Out-Patient Physical Therapy Visit Information Visit Information Visit Type Treatment Note Visit Start Time 12:15 Visit Stop Time 12:55 Total Visit Minutes 40 Visit Number 04/23 Precautions Precautions BP kept between 110-140/70-90, s/p right craniotomy PT-OP-B Current Condition Start: 08/22/20 07:37 Freq: Status: Active Protocol: Document 08/23/20 12:13 MB (Rec: 08/23/20 13:04 MB [id number]) Current Condition History of Current Condition Onset Date Surgery 07/27/20 Current Complaints Dizziness, light-headedness, ETIENNE and left leg pain and imbalance History of Current Condition 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 Pt had fall and concussion then as passed out. In PMH, pt writes back pain, superficial blood clot right LE, ulcers. Current complaints include: dizziness when active (walking and movements of neck), decreased processing words, headaches managed by medications, trouble opening right side of jaw post-op, neck pain and stiffness. Pt denies falls since surgery. Pt is wearing an ice hat. Pt reports pain right side of head, left jaw and left thigh. ETIENNE pain gets up to 5/10 with medication. Her neck pain is 4 /10. Left leg pain gets up to 7/10. She reports left leg pain as deep and shooting. Pt reports pain with walking on left leg. Pt reports that her left leg feels weak. The Cymbalta helps with nerve pain . Pt reports that her right eye brown does not yet move after surgery and the right side of her head is swollen. Mother states that pt still does not have any appetite. Treatment Goals Patient/Caregiver Goals Decrease pain, increase balance and leg strength. PT-OP-C Subjective Start: 08/22/20 07:37 Freq: Status: Active Protocol: Document 11/09/20 12:15 MB (Rec: 11/09/20 12:53 MB [id number]) OP-PT Subjective Patient Comments Patient Comments Pt states that over the last week, she has been napping twice a day for 3 hours each time. She does feel dizzy less . She was able to do laundry for the first time. PT-OP-D Balance Start: 08/22/20 07:37 Freq: Status: Active Protocol: Document 08/23/20 12:13 MB (Rec: 08/23/20 14:14 MB [id number]) Balance Tests Romberg Romberg LOB to the right and then the left, socks and no shoes PT-OP-G Mobility & Gait Start: 08/22/20 07:37 Freq: Status: Active Protocol: Document 08/23/20 12:13 MB (Rec: 08/23/20 14:14 MB [id number]) OP Gait Assessment Gait Gait Assistance Required: Independent Distance (Feet) 50 Able to Maintain Weight Bearing Status Yes During Gait Assistive Devices Assistive Device None Orthotic/Prosthetic Devices or Brace: No Gait Deviations General Gait Pattern Decreased Stride Length Factors Limiting Gait Function Factors Limiting Gait Function Decreased Strength,Pain,Poor Balance Comments Gait Comments Pt favors the left leg, looks down at the floor, presents with hesitancy with gait PT-OP-H Neuro Start: 08/22/20 07:37 Freq: Status: Active Protocol: Document 08/23/20 12:13 MB (Rec: 08/23/20 14:14 MB [id number]) Sensation Evaluation Comments Summary Comments Pt reports numbness right temporal area and eye brow Coordination Evaluation Upper Extremity Tests Right Finger to Nose Test Normal Performance Pronation/Supination Test Normal Performance Left Finger to Nose Test Normal Performance Pronation/Supination Test Minimal Impairment Comments Coordination Comments Right toe tapping over opposite foot normal x5 reps, rapid and accurate. Slow with left toe tapping over right foot and inaccurate, given for exercise for home: 10 reps every hour when sitting Vital Signs Pulse 1 Pulse at Rest (bpm) 77 Pulse Assessment Method Cuff Blood Pressure Sitting Blood Pressure (90/60-120/80 mmHg) 132/90 H Blood Pressure Source Automatic Cuff,Right Upper Extremity Comments Vital Signs Comments Doctor note for BP written under precautions, pt is in recommended range today PT-OP-K Range of Motion Start: 08/22/20 07:37 Freq: Status: Active Protocol: Document 08/23/20 12:13 MB (Rec: 08/23/20 14:14 MB [id number]) TMJ Range of Motion Comments Comments R eyebrow does not raise, can minimally lower. Pt presents with mild right jaw deviation and minimal dropping of left side of mouth with smile Toe Range of Motion Toes ROM Limitations Comments Decreased active left great toe extension compared to the right PT-OP-M Strength Start: 08/22/20 07:37 Freq: Status: Active Protocol: Document 08/23/20 12:13 MB (Rec: 08/23/20 14:14 MB [id number]) Shoulder Strength Shoulder Manual Muscle Testing Left Flexion 4 Good Abduction (C5) 5 Normal Adduction 5 Normal Right Flexion 4 Good Abduction (C5) 5 Normal Elbow/Forearm Strength Elbow and Forearm Manual Muscle Testing Left Flexion (C6) 4 Good Extension (C7) 5 Normal Right Flexion (C6) 4 Good Extension (C7) 5 Normal Wrist Strength Wrist Manual Muscle Testing Left Flexion (C7) 4 Good Extension (C6) 4 Good Right Flexion (C7) 5 Normal Extension (C6) 5 Normal Hip Strength Hip Manual Muscle Testing Left Flexion (L2) 3+ Fair+ Comments Pt sitting Right Flexion (L2) 4 Good Comments Pt sitting Knee Strength Knee Manual Muscle Testing Left Flexion (S2) 4 Good Extension (L3) 4 Good Comments Pt sitting Right Flexion (S2) 5 Normal Extension (L3) 5 Normal Comments Pt sitting Ankle/Foot Strength Ankle and Foot Manual Muscle Testing Left Dorsiflexion (L4) 5 Normal Right Dorsiflexion (L4) 5 Normal Toe Strength Toe Manual Muscle Testing Great Toe Extension 3+ Fair+ Right Great Toe Extension 4 Good PT-OP-O Vestibular Start: 08/22/20 07:37 Freq: Status: Active Protocol: Document 08/23/20 12:13 MB (Rec: 08/23/20 14:14 MB [id number]) Vestibular Assessment Visual Testing Smooth Pursuits Horizontal Normal Smooth Pursuits Vertical Normal Gaze Evoked Nystagmus With Fixation Negative Convergence Test R impaired Spontaneous Nystagmus Negative Comments Vestibular Comments Left pupil with decreased reactivity to pen light but very minimal PT-OP-Q Treatments Start: 08/22/20 07:37 Freq: Status: Active Protocol: Document 11/09/20 12:15 MB (Rec: 11/09/20 12:53 MB [id number]) Manual Therapy Treatment Other Other Manual Treatments Pt agrees to Counterstrain to assess and treat fascial tension. Her scan is altered d /t right craniotomy with her right temporal and parietal areas very tight. PT treats upper cervical lymphatic venous systems and periosteal C1 area to help with fascial tension of these systems contributing to headache and head pain. PT-OP-T Assessment and Plan Start: 08/22/20 07:37 Freq: Status: Active Protocol: Document 11/09/20 12:15 MB (Rec: 11/09/20 12:53 MB [id number]) Physical Therapy Assessment Rehab Potential Rehabilitation Potential Fair Evaluation Complexity Number of Personal Factors/Comorbidities 1-2 Number of Body Systems Impaired 3 Clinical Presentation at Evaluation Evolving Impairments Impairments Activity Tolerance,Balance, Edema,Gait,Integument,Pain, Posture,ROM,Sensation,Soft Tissue Mobility,Strength, Vestibular Other Impairments Personal factors: headache, decreased memory, slow speech. Body systems affected include musculoskeletal, neuromuscular, arterial. Her clinical presentation is not yet stable after brain surgery . Other Concerns Fall Risk Yes Goals 5 Tobacco Stripper Hand Goal (LTG) Pt will gait train at least 1400 feet in 6 minutes without AD and no LOB by 12/19/2020. 11/02/20: Goal met: pt gait trains 1561 feet in 6 minutes, clockwise direction today and no evidence of imbalance 10/19/20: Deferred this test today in favor of gait and balance outside and pt is able to gait with her dog on leash to the left in grass, side walk and parking lot with superv to I today, no LOB, does need rest break after 10' LTG Duration Met 4 Tobacco Stripper Hand Goal (LTG) Pt will perform progressive HEP with I including postural, flexibility, balance, LE strengthening, breathing, and VOR exercises to decrease symptoms and improve balance by 12/19/2020. 11/02/20: Progressed today and for 3x/wk: ankle DF and eversion, LAQ and clams with level 1 band. Pt has been performing breathing, racquet ball massage and dog walking at home. LTG Duration 8 weeks 3 Tobacco Stripper Hand Goal (LTG) Pt will present with improved left shoulder flexion, left hip flexion, left knee flexion and left great toe extension to 11/02 to improve balance by . 10/19/20: Deferred MMT today outside LTG Duration 8 weeks 2 Tobacco Stripper Hand Goal (LTG) Pt will report a 70% improvement in dizziness and headache symptoms to allow return to PLOF by 12/19/20. 10/19/20: Pt reports that her dizziness is improving but does not rate today LTG Duration 8 weeks 1 Snf Goal (LTG) Pt will perform WNLs on FGA to decrease fall risk and improve balance by 12/19/20. 11/02/20: FGA score is 19/30 today which is improved from test 05/31/20 (pre-op) and was 17/30 LTG Duration 8 weeks Assessment Summary Assessment Pt tolerates Counterstrain well today. Her scan is altered by recent right craniotomy. Con't PT for manual therapy and progressive balance, gait and strengthening. Anticipate progress note next treatment date. Physical Therapy Plan Frequency and Duration Frequency of Treatment 1x/Week Duration of Treatment 8 weeks Plan of Care Start Date 10/19/20 Plan of Care End Date 12/19/20 Therapeutic Interventions Therapeutic Interventions Balance Training,Canalithic Repositioning,Coordination Training,Gait Training,Home Exercise Program,Joint Mobilizations,Manual Therapy, Neuromuscular Re-education, Patient/Caregiver Education, Self-Care/Home Management, Sensory Integration,Soft Tissue Mobilization,Taping, Therapeutic Activities, Therapeutic Exercises, Vestibular Rehabilitation Modalities Cold Pack/Ice Massage,Electric Stimulation,Hot Packs, Ultrasound Next Visit Focus/Plan Next Note Type Progress Note
--- NOTE | 2020-11-15 13:55 | PT.OTN ---
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) Headache, unspecified (11/15/20) Weakness (11/15/20) Concussion with loss of consciousness of unspecified duration, subsequent encounter (11/15/20) Physical Therapy Treatment Note PT-OP-A Visit Information Start: 08/22/20 07:37 Freq: Status: Active Protocol: Document 11/15/20 12:15 MB (Rec: 11/15/20 13:01 MB [id number]) Out-Patient Physical Therapy Visit Information Visit Information Visit Type Treatment Note Visit Start Time 12:15 Visit Stop Time 12:55 Total Visit Minutes 40 Visit Number 05/24 Precautions Precautions BP kept between 110-140/70-90, s/p right craniotomy PT-OP-B Current Condition Start: 08/22/20 07:37 Freq: Status: Active Protocol: Document 08/23/20 12:13 MB (Rec: 08/23/20 13:04 MB [id number]) Current Condition History of Current Condition Onset Date Surgery 07/27/20 Current Complaints Dizziness, light-headedness, ETIENNE and left leg pain and imbalance History of Current Condition 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 Pt had fall and concussion then as passed out. In PMH, pt writes back pain, superficial blood clot right LE, ulcers. Current complaints include: dizziness when active (walking and movements of neck), decreased processing words, headaches managed by medications, trouble opening right side of jaw post-op, neck pain and stiffness. Pt denies falls since surgery. Pt is wearing an ice hat. Pt reports pain right side of head, left jaw and left thigh. ETIENNE pain gets up to 5/10 with medication. Her neck pain is 4 /10. Left leg pain gets up to 7/10. She reports left leg pain as deep and shooting. Pt reports pain with walking on left leg. Pt reports that her left leg feels weak. The Cymbalta helps with nerve pain . Pt reports that her right eye brown does not yet move after surgery and the right side of her head is swollen. Mother states that pt still does not have any appetite. Treatment Goals Patient/Caregiver Goals Decrease pain, increase balance and leg strength. PT-OP-C Subjective Start: 08/22/20 07:37 Freq: Status: Active Protocol: Document 11/15/20 12:15 MB (Rec: 11/15/20 13:01 MB [id number]) OP-PT Subjective Patient Comments Patient Comments Pt states that she had a bad migraine yesterday after putting her dog's crate for sale online. She did it on her phone. PT-OP-D Balance Start: 08/22/20 07:37 Freq: Status: Active Protocol: Document 08/23/20 12:13 MB (Rec: 08/23/20 14:14 MB [id number]) Balance Tests Romberg Romberg LOB to the right and then the left, socks and no shoes PT-OP-G Mobility & Gait Start: 08/22/20 07:37 Freq: Status: Active Protocol: Document 08/23/20 12:13 MB (Rec: 08/23/20 14:14 MB [id number]) OP Gait Assessment Gait Gait Assistance Required: Independent Distance (Feet) 50 Able to Maintain Weight Bearing Status Yes During Gait Assistive Devices Assistive Device None Orthotic/Prosthetic Devices or Brace: No Gait Deviations General Gait Pattern Decreased Stride Length Factors Limiting Gait Function Factors Limiting Gait Function Decreased Strength,Pain,Poor Balance Comments Gait Comments Pt favors the left leg, looks down at the floor, presents with hesitancy with gait PT-OP-H Neuro Start: 08/22/20 07:37 Freq: Status: Active Protocol: Document 08/23/20 12:13 MB (Rec: 08/23/20 14:14 MB [id number]) Sensation Evaluation Comments Summary Comments Pt reports numbness right temporal area and eye brow Coordination Evaluation Upper Extremity Tests Right Finger to Nose Test Normal Performance Pronation/Supination Test Normal Performance Left Finger to Nose Test Normal Performance Pronation/Supination Test Minimal Impairment Comments Coordination Comments Right toe tapping over opposite foot normal x5 reps, rapid and accurate. Slow with left toe tapping over right foot and inaccurate, given for exercise for home: 10 reps every hour when sitting Vital Signs Pulse 1 Pulse at Rest (bpm) 77 Pulse Assessment Method Cuff Blood Pressure Sitting Blood Pressure (90/60-120/80 mmHg) 132/90 H Blood Pressure Source Automatic Cuff,Right Upper Extremity Comments Vital Signs Comments Doctor note for BP written under precautions, pt is in recommended range today PT-OP-K Range of Motion Start: 08/22/20 07:37 Freq: Status: Active Protocol: Document 08/23/20 12:13 MB (Rec: 08/23/20 14:14 MB [id number]) TMJ Range of Motion Comments Comments R eyebrow does not raise, can minimally lower. Pt presents with mild right jaw deviation and minimal dropping of left side of mouth with smile Toe Range of Motion Toes ROM Limitations Comments Decreased active left great toe extension compared to the right PT-OP-M Strength Start: 08/22/20 07:37 Freq: Status: Active Protocol: Document 08/23/20 12:13 MB (Rec: 08/23/20 14:14 MB [id number]) Shoulder Strength Shoulder Manual Muscle Testing Left Flexion 4 Good Abduction (C5) 5 Normal Adduction 5 Normal Right Flexion 4 Good Abduction (C5) 5 Normal Elbow/Forearm Strength Elbow and Forearm Manual Muscle Testing Left Flexion (C6) 4 Good Extension (C7) 5 Normal Right Flexion (C6) 4 Good Extension (C7) 5 Normal Wrist Strength Wrist Manual Muscle Testing Left Flexion (C7) 4 Good Extension (C6) 4 Good Right Flexion (C7) 5 Normal Extension (C6) 5 Normal Hip Strength Hip Manual Muscle Testing Left Flexion (L2) 3+ Fair+ Comments Pt sitting Right Flexion (L2) 4 Good Comments Pt sitting Knee Strength Knee Manual Muscle Testing Left Flexion (S2) 4 Good Extension (L3) 4 Good Comments Pt sitting Right Flexion (S2) 5 Normal Extension (L3) 5 Normal Comments Pt sitting Ankle/Foot Strength Ankle and Foot Manual Muscle Testing Left Dorsiflexion (L4) 5 Normal Right Dorsiflexion (L4) 5 Normal Toe Strength Toe Manual Muscle Testing Great Toe Extension 3+ Fair+ Right Great Toe Extension 4 Good PT-OP-O Vestibular Start: 08/22/20 07:37 Freq: Status: Active Protocol: Document 08/23/20 12:13 MB (Rec: 08/23/20 14:14 MB [id number]) Vestibular Assessment Visual Testing Smooth Pursuits Horizontal Normal Smooth Pursuits Vertical Normal Gaze Evoked Nystagmus With Fixation Negative Convergence Test R impaired Spontaneous Nystagmus Negative Comments Vestibular Comments Left pupil with decreased reactivity to pen light but very minimal PT-OP-Q Treatments Start: 08/22/20 07:37 Freq: Status: Active Protocol: Document 11/15/20 12:15 MB (Rec: 11/15/20 13:01 MB [id number]) Therapeutic Exercises Supine Exercises Diaphragm breathing Comments Verbally reviewed today Self-MWM B SCM with trigger point pressure and active rotation Comments Verbally reviewed today Hook lying abdominal drawing in and hip abduction with level 1 band Comments Verbally reviewed today Buteyko breathing blocked nostril Comments Verbally reviewed today Buteyko breathing Comments Verbally reviewed today Sitting Exercises Clam with band Comments Verbally reviewed today LAQ with AP Comments Verbally reviewed today Ankle DF and eversion Comments Verbally reviewed today Alternating winking Comments Pt demonstrates today Toe tapping over opposite foot Comments Pt demonstrates today 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 and 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 with active cervical SB and rotation Comments Verbally reviewed today Gait Training Gait Activity 6MWT Comments Pt gait trains 1526 feet in 6 minutes, walking counter clockwise and with PT SBA, good speed and no LOB today Neuro Re-Education Treatment Balance Activities FGA Comments FGA score is 18/30 and pt has trouble with vertical and horizontal head turns, narrow VALENTE gait, stair gait, walking backwards and walking with eyes closed Self-Care/Home Management Treatment Education Other Education PT ed pt in benefits of doing online work on laptap and not phone, taking breaks and considering blue light glasses PT-OP-T Assessment and Plan Start: 08/22/20 07:37 Freq: Status: Active Protocol: Document 11/15/20 12:15 MB (Rec: 11/15/20 13:01 MB [id number]) Physical Therapy Assessment Rehab Potential Rehabilitation Potential Fair Evaluation Complexity Number of Personal Factors/Comorbidities 1-2 Number of Body Systems Impaired 3 Clinical Presentation at Evaluation Evolving Impairments Impairments Activity Tolerance,Balance, Edema,Gait,Integument,Pain, Posture,ROM,Sensation,Soft Tissue Mobility,Strength, Vestibular Other Impairments Personal factors: headache, decreased memory, slow speech. Body systems affected include musculoskeletal, neuromuscular, arterial. Her clinical presentation is not yet stable after brain surgery . Other Concerns Fall Risk Yes Goals 5 Director Of Pulmonary Unit Goal (LTG) Pt will gait train at least 1600 feet in 6 minutes without AD and no LOB by 01/15/2021. 11/15/20: Pt gait trains 1526 feet in 6 minutes and pt talks throughout the test LTG Duration 8 weeks 4 Director Of Pulmonary Unit Goal (LTG) Pt will perform progressive HEP with I including postural, flexibility, balance, LE strengthening, breathing, and VOR exercises to decrease symptoms and improve balance by 01/15/2021. 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 LTG Duration 8 weeks 3 Longterm Goal (LTG) Pt will present with improved left shoulder flexion, left hip flexion, left knee flexion and left great toe extension to 5/5 to improve balance by . 11/15/20: Left shoulder flexion , hip flexion and knee flexion are not improved. Left toe extension is 5/5 LTG Duration 8 weeks 2 Director Of Pulmonary Unit Goal (LTG) Pt will report a 70% improvement in dizziness and headache symptoms to allow return to PLOF by 01/15/21. 11/15/20: Pt reports a 50% improvement in dizziness since starting PT. LTG Duration 8 weeks 1 Director Of Pulmonary Unit Goal (LTG) Pt will perform WNLs on FGA to decrease fall risk and improve balance by 01/15/21. 11/15/20: FGA score is 18/30 today which is improved from test 05/31/20 (pre-op) and was 17/30 LTG Duration 8 weeks Assessment Summary Assessment Pt presents with right iliac crest higher than the left and right leg functionally longer with gait and will add pelvic realignment exercises in future PT treatments to address this which may improve gait. Pt has progressed towards gait, balance and great toe extension strength goals since starting PT. She con't with LLE weakness. She will benefit from ongoing PT to improve strength, balance, dizziness and headache pain. Physical Therapy Plan Frequency and Duration Frequency of Treatment 1x/Week Duration of Treatment 8 weeks Plan of Care Start Date 11/15/20 Plan of Care End Date 02/13/21 Therapeutic Interventions Therapeutic Interventions Balance Training,Canalithic Repositioning,Coordination Training,Gait Training,Home Exercise Program,Joint Mobilizations,Manual Therapy, Neuromuscular Re-education, Patient/Caregiver Education, Self-Care/Home Management, Sensory Integration,Soft Tissue Mobilization,Taping, Therapeutic Activities, Therapeutic Exercises, Vestibular Rehabilitation Modalities Cold Pack/Ice Massage,Electric Stimulation,Hot Packs, Ultrasound Next Visit Focus/Plan Next Note Type Treatment Note Next Visit Plan Add hip and knee flexion strengthening exercises, squatting exercises with balls and cones as pt is concerned about dizziness bending over, pelvic realignment exercises.
--- NOTE | 2020-11-15 13:55 | PT.OPPOC ---
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) Headache, unspecified (11/15/20) Weakness (11/15/20) Concussion with loss of consciousness of unspecified duration, subsequent encounter (11/15/20) Visit Care Team Role Provider Type Christen Figueroa PA-C Primary Care Provider Non-Staff Specialty: Family Practice Address: [address], [address], [place], [address] Email: TONE Riley Attending Provider Non-Staff Referring Provider Specialty: Nursing Address: [address] [place] [address] [address], [place], [address] Email: Plan Of Care PT-OP-T Assessment and Plan Start: 08/22/20 07:37 Freq: Status: Active Protocol: Document 11/15/20 12:15 MB (Rec: 11/15/20 13:01 MB [id number]) Physical Therapy Assessment Rehab Potential Rehabilitation Potential Fair Evaluation Complexity Number of Personal Factors/Comorbidities 1-2 Number of Body Systems Impaired 3 Clinical Presentation at Evaluation Evolving Impairments Impairments Activity Tolerance,Balance, Edema,Gait,Integument,Pain, Posture,ROM,Sensation,Soft Tissue Mobility,Strength, Vestibular Other Impairments Personal factors: headache, decreased memory, slow speech. Body systems affected include musculoskeletal, neuromuscular, arterial. Her clinical presentation is not yet stable after brain surgery . Other Concerns Fall Risk Yes Goals 5 Jail Goal (LTG) Pt will gait train at least 1600 feet in 6 minutes without AD and no LOB by 01/15/2021. 11/15/20: Pt gait trains 1526 feet in 6 minutes and pt talks throughout the test LTG Duration 8 weeks 4 Pipeline Controller Goal (LTG) Pt will perform progressive HEP with I including postural, flexibility, balance, LE strengthening, breathing, and VOR exercises to decrease symptoms and improve balance by 01/15/2021. 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 LTG Duration 8 weeks 3 Jail Goal (LTG) Pt will present with improved left shoulder flexion, left hip flexion, left knee flexion and left great toe extension to 5/5 to improve balance by . 11/15/20: Left shoulder flexion , hip flexion and knee flexion are not improved. Left toe extension is 5/5 LTG Duration 8 weeks 2 Jail Goal (LTG) Pt will report a 70% improvement in dizziness and headache symptoms to allow return to PLOF by 01/15/21. 11/15/20: Pt reports a 50% improvement in dizziness since starting PT. LTG Duration 8 weeks 1 Jail Goal (LTG) Pt will perform WNLs on FGA to decrease fall risk and improve balance by 01/15/21. 11/15/20: FGA score is 18/30 today which is improved from test 05/31/20 (pre-op) and was 17/30 LTG Duration 8 weeks Assessment Summary Assessment Pt presents with right iliac crest higher than the left and right leg functionally longer with gait and will add pelvic realignment exercises in future PT treatments to address this which may improve gait. Pt has progressed towards gait, balance and great toe extension strength goals since starting PT. She con't with LLE weakness. She will benefit from ongoing PT to improve strength, balance, dizziness and headache pain. Physical Therapy Plan Frequency and Duration Frequency of Treatment 1x/Week Duration of Treatment 8 weeks Plan of Care Start Date 11/15/20 Plan of Care End Date 02/13/21 Therapeutic Interventions Therapeutic Interventions Balance Training,Canalithic Repositioning,Coordination Training,Gait Training,Home Exercise Program,Joint Mobilizations,Manual Therapy, Neuromuscular Re-education, Patient/Caregiver Education, Self-Care/Home Management, Sensory Integration,Soft Tissue Mobilization,Taping, Therapeutic Activities, Therapeutic Exercises, Vestibular Rehabilitation Modalities Cold Pack/Ice Massage,Electric Stimulation,Hot Packs, Ultrasound Next Visit Focus/Plan Next Note Type Treatment Note Next Visit Plan Add hip and knee flexion strengthening exercises, squatting exercises with balls and cones as pt is concerned about dizziness bending over, pelvic realignment exercises. Plan of Care Dates Plan of Care Start Date 11/15/20 Plan of Care End Date 02/13/21 Electronically Signed by: Donita Cruz, PT 11/15/20 [id number] Please Sign and Return: I have reviewed this Plan of Care and certify that the skilled therapy services above are required to meet the patient?s needs. Physician Signature Date Printed Name and Credentials Clinical Instructor Signature Printed Name and Credentials
--- NOTE | 2020-11-23 13:01 | PT.OTN ---
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) Headache, unspecified (11/23/20) Weakness (11/23/20) Concussion with loss of consciousness of unspecified duration, subsequent encounter (11/23/20) Physical Therapy Treatment Note PT-OP-A Visit Information Start: 08/22/20 07:37 Freq: Status: Active Protocol: Document 11/23/20 12:17 MB (Rec: 11/23/20 13:00 MB [id number]) Out-Patient Physical Therapy Visit Information Visit Information Visit Type Treatment Note Visit Start Time 12:17 Visit Stop Time 13:00 Total Visit Minutes 43 Visit Number 06/23 Precautions Precautions BP kept between 110-140/70-90, s/p right craniotomy PT-OP-B Current Condition Start: 08/22/20 07:37 Freq: Status: Active Protocol: Document 08/23/20 12:13 MB (Rec: 08/23/20 13:04 MB [id number]) Current Condition History of Current Condition Onset Date Surgery 07/27/20 Current Complaints Dizziness, light-headedness, ETIENNE and left leg pain and imbalance History of Current Condition 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 Pt had fall and concussion then as passed out. In PMH, pt writes back pain, superficial blood clot right LE, ulcers. Current complaints include: dizziness when active (walking and movements of neck), decreased processing words, headaches managed by medications, trouble opening right side of jaw post-op, neck pain and stiffness. Pt denies falls since surgery. Pt is wearing an ice hat. Pt reports pain right side of head, left jaw and left thigh. ETIENNE pain gets up to 5/10 with medication. Her neck pain is 4 /10. Left leg pain gets up to 7/10. She reports left leg pain as deep and shooting. Pt reports pain with walking on left leg. Pt reports that her left leg feels weak. The Cymbalta helps with nerve pain . Pt reports that her right eye brown does not yet move after surgery and the right side of her head is swollen. Mother states that pt still does not have any appetite. Treatment Goals Patient/Caregiver Goals Decrease pain, increase balance and leg strength. PT-OP-C Subjective Start: 08/22/20 07:37 Freq: Status: Active Protocol: Document 11/23/20 12:17 MB (Rec: 11/23/20 13:00 MB [id number]) OP-PT Subjective Patient Comments Patient Comments Pt states that she is having headaches with tasks when she is concentrating such as playing cards. The headaches are eyeball headaches. She is having more constant headaches when waking up with the headache where her neck attaches to her head. PT-OP-D Balance Start: 08/22/20 07:37 Freq: Status: Active Protocol: Document 08/23/20 12:13 MB (Rec: 08/23/20 14:14 MB [id number]) Balance Tests Romberg Romberg LOB to the right and then the left, socks and no shoes PT-OP-G Mobility & Gait Start: 08/22/20 07:37 Freq: Status: Active Protocol: Document 08/23/20 12:13 MB (Rec: 08/23/20 14:14 MB [id number]) OP Gait Assessment Gait Gait Assistance Required: Independent Distance (Feet) 50 Able to Maintain Weight Bearing Status Yes During Gait Assistive Devices Assistive Device None Orthotic/Prosthetic Devices or Brace: No Gait Deviations General Gait Pattern Decreased Stride Length Factors Limiting Gait Function Factors Limiting Gait Function Decreased Strength,Pain,Poor Balance Comments Gait Comments Pt favors the left leg, looks down at the floor, presents with hesitancy with gait PT-OP-H Neuro Start: 08/22/20 07:37 Freq: Status: Active Protocol: Document 08/23/20 12:13 MB (Rec: 08/23/20 14:14 MB [id number]) Sensation Evaluation Comments Summary Comments Pt reports numbness right temporal area and eye brow Coordination Evaluation Upper Extremity Tests Right Finger to Nose Test Normal Performance Pronation/Supination Test Normal Performance Left Finger to Nose Test Normal Performance Pronation/Supination Test Minimal Impairment Comments Coordination Comments Right toe tapping over opposite foot normal x5 reps, rapid and accurate. Slow with left toe tapping over right foot and inaccurate, given for exercise for home: 10 reps every hour when sitting Vital Signs Pulse 1 Pulse at Rest (bpm) 77 Pulse Assessment Method Cuff Blood Pressure Sitting Blood Pressure (90/60-120/80 mmHg) 132/90 H Blood Pressure Source Automatic Cuff,Right Upper Extremity Comments Vital Signs Comments Doctor note for BP written under precautions, pt is in recommended range today PT-OP-K Range of Motion Start: 08/22/20 07:37 Freq: Status: Active Protocol: Document 08/23/20 12:13 MB (Rec: 08/23/20 14:14 MB [id number]) TMJ Range of Motion Comments Comments R eyebrow does not raise, can minimally lower. Pt presents with mild right jaw deviation and minimal dropping of left side of mouth with smile Toe Range of Motion Toes ROM Limitations Comments Decreased active left great toe extension compared to the right PT-OP-M Strength Start: 08/22/20 07:37 Freq: Status: Active Protocol: Document 08/23/20 12:13 MB (Rec: 08/23/20 14:14 MB [id number]) Shoulder Strength Shoulder Manual Muscle Testing Left Flexion 4 Good Abduction (C5) 5 Normal Adduction 5 Normal Right Flexion 4 Good Abduction (C5) 5 Normal Elbow/Forearm Strength Elbow and Forearm Manual Muscle Testing Left Flexion (C6) 4 Good Extension (C7) 5 Normal Right Flexion (C6) 4 Good Extension (C7) 5 Normal Wrist Strength Wrist Manual Muscle Testing Left Flexion (C7) 4 Good Extension (C6) 4 Good Right Flexion (C7) 5 Normal Extension (C6) 5 Normal Hip Strength Hip Manual Muscle Testing Left Flexion (L2) 3+ Fair+ Comments Pt sitting Right Flexion (L2) 4 Good Comments Pt sitting Knee Strength Knee Manual Muscle Testing Left Flexion (S2) 4 Good Extension (L3) 4 Good Comments Pt sitting Right Flexion (S2) 5 Normal Extension (L3) 5 Normal Comments Pt sitting Ankle/Foot Strength Ankle and Foot Manual Muscle Testing Left Dorsiflexion (L4) 5 Normal Right Dorsiflexion (L4) 5 Normal Toe Strength Toe Manual Muscle Testing Great Toe Extension 3+ Fair+ Right Great Toe Extension 4 Good PT-OP-O Vestibular Start: 08/22/20 07:37 Freq: Status: Active Protocol: Document 08/23/20 12:13 MB (Rec: 08/23/20 14:14 MB [id number]) Vestibular Assessment Visual Testing Smooth Pursuits Horizontal Normal Smooth Pursuits Vertical Normal Gaze Evoked Nystagmus With Fixation Negative Convergence Test R impaired Spontaneous Nystagmus Negative Comments Vestibular Comments Left pupil with decreased reactivity to pen light but very minimal PT-OP-Q Treatments Start: 08/22/20 07:37 Freq: Status: Active Protocol: Document 11/23/20 12:17 MB (Rec: 11/23/20 13:00 MB [id number]) Manual Therapy Treatment Other Other Manual Treatments Suboccipital release, superficial fascial massage of scalp and taught patient how to perform at home with the fatty pads of her fingers and not to touch scar but to work the fascia towards position of ease on right side of scalp, SCM positional release B, B pect positional release PT-OP-T Assessment and Plan Start: 08/22/20 07:37 Freq: Status: Active Protocol: Document 11/23/20 12:17 MB (Rec: 11/23/20 13:00 MB [id number]) Physical Therapy Assessment Rehab Potential Rehabilitation Potential Fair Evaluation Complexity Number of Personal Factors/Comorbidities 1-2 Number of Body Systems Impaired 3 Clinical Presentation at Evaluation Evolving Impairments Impairments Activity Tolerance,Balance, Edema,Gait,Integument,Pain, Posture,ROM,Sensation,Soft Tissue Mobility,Strength, Vestibular Other Impairments Personal factors: headache, decreased memory, slow speech. Body systems affected include musculoskeletal, neuromuscular, arterial. Her clinical presentation is not yet stable after brain surgery . Other Concerns Fall Risk Yes Goals 5 Assisted Goal (LTG) Pt will gait train at least 1600 feet in 6 minutes without AD and no LOB by 01/15/2021. 11/15/20: Pt gait trains 1526 feet in 6 minutes and pt talks throughout the test LTG Duration 8 weeks 4 Assisted Goal (LTG) Pt will perform progressive HEP with I including postural, flexibility, balance, LE strengthening, breathing, and VOR exercises to decrease symptoms and improve balance by 01/15/2021. 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 LTG Duration 8 weeks 3 Mine Equipment Design Engineer Goal (LTG) Pt will present with improved left shoulder flexion, left hip flexion, left knee flexion and left great toe extension to 5/5 to improve balance by . 11/15/20: Left shoulder flexion , hip flexion and knee flexion are not improved. Left toe extension is 5/5 LTG Duration 8 weeks 2 Assisted Goal (LTG) Pt will report a 70% improvement in dizziness and headache symptoms to allow return to PLOF by 01/15/21. 11/15/20: Pt reports a 50% improvement in dizziness since starting PT. LTG Duration 8 weeks 1 Mine Equipment Design Engineer Goal (LTG) Pt will perform WNLs on FGA to decrease fall risk and improve balance by 01/15/21. 11/15/20: FGA score is 18/30 today which is improved from test 05/31/20 (pre-op) and was 17/30 LTG Duration 8 weeks Assessment Summary Assessment Manual work today and her neck and scalp are looser and her headache is better after treatment. B pects tight and improve with manual work. Physical Therapy Plan Frequency and Duration Frequency of Treatment 1x/Week Duration of Treatment 8 weeks Plan of Care Start Date 11/15/20 Plan of Care End Date 02/13/21 Therapeutic Interventions Therapeutic Interventions Balance Training,Canalithic Repositioning,Coordination Training,Gait Training,Home Exercise Program,Joint Mobilizations,Manual Therapy, Neuromuscular Re-education, Patient/Caregiver Education, Self-Care/Home Management, Sensory Integration,Soft Tissue Mobilization,Taping, Therapeutic Activities, Therapeutic Exercises, Vestibular Rehabilitation Modalities Cold Pack/Ice Massage,Electric Stimulation,Hot Packs, Ultrasound Next Visit Focus/Plan Next Note Type Treatment Note Next Visit Plan Pect stretch with open book, Add hip and knee flexion strengthening exercises, squatting exercises with balls and cones as pt is concerned about dizziness bending over, pelvic realignment exercises.
--- NOTE | 2020-11-30 13:03 | PT.OTN ---
Current Diagnoses Moyamoya disease (11/30/20) Headache, unspecified (11/30/20) Weakness (11/30/20) Concussion with loss of consciousness of unspecified duration, subsequent encounter (11/30/20) Physical Therapy Treatment Note PT-OP-A Visit Information Start: 08/22/20 07:37 Freq: Status: Active Protocol: Document 11/30/20 12:17 MB (Rec: 11/30/20 13:00 MB [id number]) Out-Patient Physical Therapy Visit Information Visit Information Visit Type Treatment Note Visit Start Time 12:17 Visit Stop Time 13:00 Total Visit Minutes 43 Visit Number Precautions Precautions BP kept between 110-140/70-90, s/p right craniotomy PT-OP-B Current Condition Start: 08/22/20 07:37 Freq: Status: Active Protocol: Document 08/23/20 12:13 MB (Rec: 08/23/20 13:04 MB [id number]) Current Condition History of Current Condition Onset Date Surgery 07/27/20 Current Complaints Dizziness, light-headedness, ETIENNE and left leg pain and imbalance History of Current Condition 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 Pt had fall and concussion then as passed out. In PMH, pt writes back pain, superficial blood clot right LE, ulcers. Current complaints include: dizziness when active (walking and movements of neck), decreased processing words, headaches managed by medications, trouble opening right side of jaw post-op, neck pain and stiffness. Pt denies falls since surgery. Pt is wearing an ice hat. Pt reports pain right side of head, left jaw and left thigh. ETIENNE pain gets up to 5/10 with medication. Her neck pain is 4 /10. Left leg pain gets up to 7/10. She reports left leg pain as deep and shooting. Pt reports pain with walking on left leg. Pt reports that her left leg feels weak. The Cymbalta helps with nerve pain . Pt reports that her right eye brown does not yet move after surgery and the right side of her head is swollen. Mother states that pt still does not have any appetite. Treatment Goals Patient/Caregiver Goals Decrease pain, increase balance and leg strength. PT-OP-C Subjective Start: 08/22/20 07:37 Freq: Status: Active Protocol: Document 11/30/20 12:17 MB (Rec: 11/30/20 13:00 MB [id number]) OP-PT Subjective Patient Comments Patient Comments Pt states that she is having a thunderbolt headache on the left. She had hoped to go outside for PT but states that she needs manual intervention and PT in agreement. Pt states that she is having incision tingling and bleeding . She might have scratched her incision in her sleep. Pt states that she will let her doctor know. Her follow-up is going to be in March with [facility]. PT-OP-D Balance Start: 08/22/20 07:37 Freq: Status: Active Protocol: Document 08/23/20 12:13 MB (Rec: 08/23/20 14:14 MB [id number]) Balance Tests Romberg Romberg LOB to the right and then the left, socks and no shoes PT-OP-G Mobility & Gait Start: 08/22/20 07:37 Freq: Status: Active Protocol: Document 08/23/20 12:13 MB (Rec: 08/23/20 14:14 MB [id number]) OP Gait Assessment Gait Gait Assistance Required: Independent Distance (Feet) 50 Able to Maintain Weight Bearing Status Yes During Gait Assistive Devices Assistive Device None Orthotic/Prosthetic Devices or Brace: No Gait Deviations General Gait Pattern Decreased Stride Length Factors Limiting Gait Function Factors Limiting Gait Function Decreased Strength,Pain,Poor Balance Comments Gait Comments Pt favors the left leg, looks down at the floor, presents with hesitancy with gait PT-OP-H Neuro Start: 08/22/20 07:37 Freq: Status: Active Protocol: Document 08/23/20 12:13 MB (Rec: 08/23/20 14:14 MB [id number]) Sensation Evaluation Comments Summary Comments Pt reports numbness right temporal area and eye brow Coordination Evaluation Upper Extremity Tests Right Finger to Nose Test Normal Performance Pronation/Supination Test Normal Performance Left Finger to Nose Test Normal Performance Pronation/Supination Test Minimal Impairment Comments Coordination Comments Right toe tapping over opposite foot normal x5 reps, rapid and accurate. Slow with left toe tapping over right foot and inaccurate, given for exercise for home: 10 reps every hour when sitting Vital Signs Pulse 1 Pulse at Rest (bpm) 77 Pulse Assessment Method Cuff Blood Pressure Sitting Blood Pressure (90/60-120/80 mmHg) 132/90 H Blood Pressure Source Automatic Cuff,Right Upper Extremity Comments Vital Signs Comments Doctor note for BP written under precautions, pt is in recommended range today PT-OP-K Range of Motion Start: 08/22/20 07:37 Freq: Status: Active Protocol: Document 08/23/20 12:13 MB (Rec: 08/23/20 14:14 MB [id number]) TMJ Range of Motion Comments Comments R eyebrow does not raise, can minimally lower. Pt presents with mild right jaw deviation and minimal dropping of left side of mouth with smile Toe Range of Motion Toes ROM Limitations Comments Decreased active left great toe extension compared to the right PT-OP-M Strength Start: 08/22/20 07:37 Freq: Status: Active Protocol: Document 08/23/20 12:13 MB (Rec: 08/23/20 14:14 MB [id number]) Shoulder Strength Shoulder Manual Muscle Testing Left Flexion 4 Good Abduction (C5) 5 Normal Adduction 5 Normal Right Flexion 4 Good Abduction (C5) 5 Normal Elbow/Forearm Strength Elbow and Forearm Manual Muscle Testing Left Flexion (C6) 4 Good Extension (C7) 5 Normal Right Flexion (C6) 4 Good Extension (C7) 5 Normal Wrist Strength Wrist Manual Muscle Testing Left Flexion (C7) 4 Good Extension (C6) 4 Good Right Flexion (C7) 5 Normal Extension (C6) 5 Normal Hip Strength Hip Manual Muscle Testing Left Flexion (L2) 3+ Fair+ Comments Pt sitting Right Flexion (L2) 4 Good Comments Pt sitting Knee Strength Knee Manual Muscle Testing Left Flexion (S2) 4 Good Extension (L3) 4 Good Comments Pt sitting Right Flexion (S2) 5 Normal Extension (L3) 5 Normal Comments Pt sitting Ankle/Foot Strength Ankle and Foot Manual Muscle Testing Left Dorsiflexion (L4) 5 Normal Right Dorsiflexion (L4) 5 Normal Toe Strength Toe Manual Muscle Testing Great Toe Extension 3+ Fair+ Right Great Toe Extension 4 Good PT-OP-O Vestibular Start: 08/22/20 07:37 Freq: Status: Active Protocol: Document 08/23/20 12:13 MB (Rec: 08/23/20 14:14 MB [id number]) Vestibular Assessment Visual Testing Smooth Pursuits Horizontal Normal Smooth Pursuits Vertical Normal Gaze Evoked Nystagmus With Fixation Negative Convergence Test R impaired Spontaneous Nystagmus Negative Comments Vestibular Comments Left pupil with decreased reactivity to pen light but very minimal PT-OP-Q Treatments Start: 08/22/20 07:37 Freq: Status: Active Protocol: Document 11/30/20 12:17 MB (Rec: 11/30/20 13:00 MB [id number]) Manual Therapy Treatment Other Other Manual Treatments Suboccipital release, positional release left greater than right temporalis muscles, positional release B SCM, B 1st rib isometric, pect positional release B, pect stretch position at end PT-OP-T Assessment and Plan Start: 08/22/20 07:37 Freq: Status: Active Protocol: Document 11/30/20 12:17 MB (Rec: 11/30/20 13:00 MB [id number]) Physical Therapy Assessment Rehab Potential Rehabilitation Potential Fair Evaluation Complexity Number of Personal Factors/Comorbidities 1-2 Number of Body Systems Impaired 3 Clinical Presentation at Evaluation Evolving Impairments Impairments Activity Tolerance,Balance, Edema,Gait,Integument,Pain, Posture,ROM,Sensation,Soft Tissue Mobility,Strength, Vestibular Other Impairments Personal factors: headache, decreased memory, slow speech. Body systems affected include musculoskeletal, neuromuscular, arterial. Her clinical presentation is not yet stable after brain surgery . Other Concerns Fall Risk Yes Goals 5 Wire Spring Relay Adjuster Goal (LTG) Pt will gait train at least 1600 feet in 6 minutes without AD and no LOB by 01/15/2021. 11/15/20: Pt gait trains 1526 feet in 6 minutes and pt talks throughout the test LTG Duration 8 weeks 4 Group Home Goal (LTG) Pt will perform progressive HEP with I including postural, flexibility, balance, LE strengthening, breathing, and VOR exercises to decrease symptoms and improve balance by 01/15/2021. 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 LTG Duration 8 weeks 3 Wire Spring Relay Adjuster Goal (LTG) Pt will present with improved left shoulder flexion, left hip flexion, left knee flexion and left great toe extension to 5/5 to improve balance by . 11/15/20: Left shoulder flexion , hip flexion and knee flexion are not improved. Left toe extension is 5/5 LTG Duration 8 weeks 2 Wire Spring Relay Adjuster Goal (LTG) Pt will report a 70% improvement in dizziness and headache symptoms to allow return to PLOF by 01/15/21. 11/15/20: Pt reports a 50% improvement in dizziness since starting PT. LTG Duration 8 weeks 1 Wire Spring Relay Adjuster Goal (LTG) Pt will perform WNLs on FGA to decrease fall risk and improve balance by 01/15/21. 11/15/20: FGA score is 18/30 today which is improved from test 05/31/20 (pre-op) and was 17/30 LTG Duration 8 weeks Assessment Summary Assessment Pt with increased tension left and right temporalis, right greater than left pects, she responds well to treatment. Ed to try position upon arriving home, added pect stretch and icing and pt states she will do also. Also ed pt to perform computer tasks on computer only and not on smart phone. Physical Therapy Plan Frequency and Duration Frequency of Treatment 1x/Week Duration of Treatment 8 weeks Plan of Care Start Date 11/15/20 Plan of Care End Date 02/13/21 Therapeutic Interventions Therapeutic Interventions Balance Training,Canalithic Repositioning,Coordination Training,Gait Training,Home Exercise Program,Joint Mobilizations,Manual Therapy, Neuromuscular Re-education, Patient/Caregiver Education, Self-Care/Home Management, Sensory Integration,Soft Tissue Mobilization,Taping, Therapeutic Activities, Therapeutic Exercises, Vestibular Rehabilitation Modalities Cold Pack/Ice Massage,Electric Stimulation,Hot Packs, Ultrasound Next Visit Focus/Plan Next Note Type Treatment Note Next Visit Plan Pect stretch with open book, Add hip and knee flexion strengthening exercises, squatting exercises with balls and cones as pt is concerned about dizziness bending over, pelvic realignment exercises.
--- NOTE | 2020-12-07 13:24 | PT.OTN ---
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) Headache, unspecified (12/07/20) Weakness (12/07/20) Concussion with loss of consciousness of unspecified duration, subsequent encounter (12/07/20) Physical Therapy Treatment Note PT-OP-A Visit Information Start: 08/22/20 07:37 Freq: Status: Active Protocol: Document 12/07/20 12:15 MB (Rec: 12/07/20 13:24 MB [id number]) Out-Patient Physical Therapy Visit Information Visit Information Visit Type Treatment Note Visit Start Time 12:15 Visit Stop Time 13:15 Total Visit Minutes 60 Visit Number Precautions Precautions BP kept between 110-140/70-90, s/p right craniotomy PT-OP-B Current Condition Start: 08/22/20 07:37 Freq: Status: Active Protocol: Document 08/23/20 12:13 MB (Rec: 08/23/20 13:04 MB [id number]) Current Condition History of Current Condition Onset Date Surgery 07/27/20 Current Complaints Dizziness, light-headedness, ETIENNE and left leg pain and imbalance History of Current Condition 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 Pt had fall and concussion then as passed out. In PMH, pt writes back pain, superficial blood clot right LE, ulcers. Current complaints include: dizziness when active (walking and movements of neck), decreased processing words, headaches managed by medications, trouble opening right side of jaw post-op, neck pain and stiffness. Pt denies falls since surgery. Pt is wearing an ice hat. Pt reports pain right side of head, left jaw and left thigh. ETIENNE pain gets up to 5/10 with medication. Her neck pain is 4 /10. Left leg pain gets up to 7/10. She reports left leg pain as deep and shooting. Pt reports pain with walking on left leg. Pt reports that her left leg feels weak. The Cymbalta helps with nerve pain . Pt reports that her right eye brown does not yet move after surgery and the right side of her head is swollen. Mother states that pt still does not have any appetite. Treatment Goals Patient/Caregiver Goals Decrease pain, increase balance and leg strength. PT-OP-C Subjective Start: 08/22/20 07:37 Freq: Status: Active Protocol: Document 12/07/20 12:15 MB (Rec: 12/07/20 13:24 MB [id number]) OP-PT Subjective Patient Comments Patient Comments Pt states that Shun wanted her to have a head CT d/t ETIENNE and neck pain. Her BP has been in the 115-120/60-80. She had the head CT at [facility] 12/05 and nurse sent her an email that the doctor reviewed the results and they were negative. Pt reports that all gentle manual work has been helpful and given that and negative findings, will con't today. Front office is calling to get report for PT. PT-OP-D Balance Start: 08/22/20 07:37 Freq: Status: Active Protocol: Document 08/23/20 12:13 MB (Rec: 08/23/20 14:14 MB [id number]) Balance Tests Romberg Romberg LOB to the right and then the left, socks and no shoes PT-OP-G Mobility & Gait Start: 08/22/20 07:37 Freq: Status: Active Protocol: Document 08/23/20 12:13 MB (Rec: 08/23/20 14:14 MB [id number]) OP Gait Assessment Gait Gait Assistance Required: Independent Distance (Feet) 50 Able to Maintain Weight Bearing Status Yes During Gait Assistive Devices Assistive Device None Orthotic/Prosthetic Devices or Brace: No Gait Deviations General Gait Pattern Decreased Stride Length Factors Limiting Gait Function Factors Limiting Gait Function Decreased Strength,Pain,Poor Balance Comments Gait Comments Pt favors the left leg, looks down at the floor, presents with hesitancy with gait PT-OP-H Neuro Start: 08/22/20 07:37 Freq: Status: Active Protocol: Document 08/23/20 12:13 MB (Rec: 08/23/20 14:14 MB [id number]) Sensation Evaluation Comments Summary Comments Pt reports numbness right temporal area and eye brow Coordination Evaluation Upper Extremity Tests Right Finger to Nose Test Normal Performance Pronation/Supination Test Normal Performance Left Finger to Nose Test Normal Performance Pronation/Supination Test Minimal Impairment Comments Coordination Comments Right toe tapping over opposite foot normal x5 reps, rapid and accurate. Slow with left toe tapping over right foot and inaccurate, given for exercise for home: 10 reps every hour when sitting Vital Signs Pulse 1 Pulse at Rest (bpm) 77 Pulse Assessment Method Cuff Blood Pressure Sitting Blood Pressure (90/60-120/80 mmHg) 132/90 H Blood Pressure Source Automatic Cuff,Right Upper Extremity Comments Vital Signs Comments Doctor note for BP written under precautions, pt is in recommended range today PT-OP-K Range of Motion Start: 08/22/20 07:37 Freq: Status: Active Protocol: Document 08/23/20 12:13 MB (Rec: 08/23/20 14:14 MB [id number]) TMJ Range of Motion Comments Comments R eyebrow does not raise, can minimally lower. Pt presents with mild right jaw deviation and minimal dropping of left side of mouth with smile Toe Range of Motion Toes ROM Limitations Comments Decreased active left great toe extension compared to the right PT-OP-M Strength Start: 08/22/20 07:37 Freq: Status: Active Protocol: Document 08/23/20 12:13 MB (Rec: 08/23/20 14:14 MB [id number]) Shoulder Strength Shoulder Manual Muscle Testing Left Flexion 4 Good Abduction (C5) 5 Normal Adduction 5 Normal Right Flexion 4 Good Abduction (C5) 5 Normal Elbow/Forearm Strength Elbow and Forearm Manual Muscle Testing Left Flexion (C6) 4 Good Extension (C7) 5 Normal Right Flexion (C6) 4 Good Extension (C7) 5 Normal Wrist Strength Wrist Manual Muscle Testing Left Flexion (C7) 4 Good Extension (C6) 4 Good Right Flexion (C7) 5 Normal Extension (C6) 5 Normal Hip Strength Hip Manual Muscle Testing Left Flexion (L2) 3+ Fair+ Comments Pt sitting Right Flexion (L2) 4 Good Comments Pt sitting Knee Strength Knee Manual Muscle Testing Left Flexion (S2) 4 Good Extension (L3) 4 Good Comments Pt sitting Right Flexion (S2) 5 Normal Extension (L3) 5 Normal Comments Pt sitting Ankle/Foot Strength Ankle and Foot Manual Muscle Testing Left Dorsiflexion (L4) 5 Normal Right Dorsiflexion (L4) 5 Normal Toe Strength Toe Manual Muscle Testing Great Toe Extension 3+ Fair+ Right Great Toe Extension 4 Good PT-OP-O Vestibular Start: 08/22/20 07:37 Freq: Status: Active Protocol: Document 08/23/20 12:13 MB (Rec: 08/23/20 14:14 MB [id number]) Vestibular Assessment Visual Testing Smooth Pursuits Horizontal Normal Smooth Pursuits Vertical Normal Gaze Evoked Nystagmus With Fixation Negative Convergence Test R impaired Spontaneous Nystagmus Negative Comments Vestibular Comments Left pupil with decreased reactivity to pen light but very minimal PT-OP-Q Treatments Start: 08/22/20 07:37 Freq: Status: Active Protocol: Document 12/07/20 12:15 MB (Rec: 12/07/20 13:24 MB [id number]) Therapeutic Exercises Supine Exercises Shoulder ER and horizontal abduction with band Side bilateral Resistance Level 1 band Comments Head and neck supported, ER is helpful and horizontal abd is not, so stoppe Diaphragm breathing Comments Performed with Buteyko breathing and tape during treatment Buteyko breathing Comments Nasal breathing throughout manual treatment, taped mouth Sidelying Exercises Open book with pect stretch and rib breathing Side bilateral Comments Rib breathing end range-- elbows bent and taped mout Manual Therapy Treatment Other Other Manual Treatments Pt denies change in strength, sensation, dizziness, change in speech, vision and thinking . Pt agrees to Counterstrain to assess and treat fascial tension and she presents with tension in the following fascial systems (note that scan is limited by right cranial changes and scar): right trigeminal that improves with breathing and resting position. She presents with tension in lymphatic venous systems including spinal medullary PT treats stacks in tight systems. Pt responds well to treatment, paper tape over her mouth during treatment to encourage diaphragmatic and nasal breathing. PT also performs B positional release SCM and suboccipital release Self-Care/Home Management Treatment Education Other Education Shoulder ER with level 1 TB with scapular retraction and head and neck supported. Horizontal abd increases neck tension and so did not give this one. B[place]ko (paper) tape to encourage nasal and diaphragm breathing, ongoing ed about hydration, position of relaxation, self-massage PT-OP-T Assessment and Plan Start: 08/22/20 07:37 Freq: Status: Active Protocol: Document 12/07/20 12:15 MB (Rec: 12/07/20 13:24 MB [id number]) Physical Therapy Assessment Rehab Potential Rehabilitation Potential Fair Evaluation Complexity Number of Personal Factors/Comorbidities 1-2 Number of Body Systems Impaired 3 Clinical Presentation at Evaluation Evolving Impairments Impairments Activity Tolerance,Balance, Edema,Gait,Integument,Pain, Posture,ROM,Sensation,Soft Tissue Mobility,Strength, Vestibular Other Impairments Personal factors: headache, decreased memory, slow speech. Body systems affected include musculoskeletal, neuromuscular, arterial. Her clinical presentation is not yet stable after brain surgery . Other Concerns Fall Risk Yes Goals 5 Penitentiary Goal (LTG) Pt will gait train at least 1600 feet in 6 minutes without AD and no LOB by 01/15/2021. 11/15/20: Pt gait trains 1526 feet in 6 minutes and pt talks throughout the test LTG Duration 8 weeks 4 Firewall Engineer Goal (LTG) Pt will perform progressive HEP with I including postural, flexibility, balance, LE strengthening, breathing, and VOR exercises to decrease symptoms and improve balance by 01/15/2021. 11/15/20: Pt is performing band exercises for legs, racquet ball and back press clipper self- massage, breathing, walking the dog. LTG Duration 8 weeks 3 Penitentiary Goal (LTG) Pt will present with improved left shoulder flexion, left hip flexion, left knee flexion and left great toe extension to 5/5 to improve balance by . 11/15/20: Left shoulder flexion , hip flexion and knee flexion are not improved. Left toe extension is 5/5 LTG Duration 8 weeks 2 Firewall Engineer Goal (LTG) Pt will report a 70% improvement in dizziness and headache symptoms to allow return to PLOF by 01/15/21. 11/15/20: Pt reports a 50% improvement in dizziness since starting PT. LTG Duration 8 weeks 1 Firewall Engineer Goal (LTG) Pt will perform WNLs on FGA to decrease fall risk and improve balance by 01/15/21. 11/15/20: FGA score is 18/30 today which is improved from test 05/31/20 (pre-op) and was 17/30 LTG Duration 8 weeks Assessment Summary Assessment Pt reports ongoing headache in bottom of head and neck. She reports negative findings of head CT per [facility]. Given negative findings and that pt reports relief with PT , gentle treatment today. BP and HR in LUE in supine: 114/ 74, 68. Sitting after treatment: 111/86, 73. Pt does state that she grinds her teeth at night. Posterior headache is gone after treatment today. Physical Therapy Plan Frequency and Duration Frequency of Treatment 1x/Week Duration of Treatment 8 weeks Plan of Care Start Date 11/15/20 Plan of Care End Date 02/13/21 Therapeutic Interventions Therapeutic Interventions Balance Training,Canalithic Repositioning,Coordination Training,Gait Training,Home Exercise Program,Joint Mobilizations,Manual Therapy, Neuromuscular Re-education, Patient/Caregiver Education, Self-Care/Home Management, Sensory Integration,Soft Tissue Mobilization,Taping, Therapeutic Activities, Therapeutic Exercises, Vestibular Rehabilitation Modalities Cold Pack/Ice Massage,Electric Stimulation,Hot Packs, Ultrasound Next Visit Focus/Plan Next Note Type Treatment Note Next Visit Plan Add hip and knee flexion strengthening exercises, squatting exercises with balls and cones as pt is concerned about dizziness bending over, pelvic realignment exercises.
--- NOTE | 2020-12-14 13:09 | PT.OTN ---
Current Diagnoses Moyamoya disease (12/14/20) Headache, unspecified (12/14/20) Weakness (12/14/20) Concussion with loss of consciousness of unspecified duration, subsequent encounter (12/14/20) Physical Therapy Treatment Note PT-OP-A Visit Information Start: 08/22/20 07:37 Freq: Status: Active Protocol: Document 12/14/20 12:16 MB (Rec: 12/14/20 13:09 MB [id number]) Out-Patient Physical Therapy Visit Information Visit Information Visit Type Treatment Note Visit Start Time 12:16 Visit Stop Time 13:00 Total Visit Minutes 44 Visit Number Precautions Precautions BP kept between 110-140/70-90, s/p right craniotomy PT-OP-B Current Condition Start: 08/22/20 07:37 Freq: Status: Active Protocol: Document 08/23/20 12:13 MB (Rec: 08/23/20 13:04 MB [id number]) Current Condition History of Current Condition Onset Date Surgery 07/27/20 Current Complaints Dizziness, light-headedness, ETIENNE and left leg pain and imbalance History of Current Condition 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 Pt had fall and concussion then as passed out. In PMH, pt writes back pain, superficial blood clot right LE, ulcers. Current complaints include: dizziness when active (walking and movements of neck), decreased processing words, headaches managed by medications, trouble opening right side of jaw post-op, neck pain and stiffness. Pt denies falls since surgery. Pt is wearing an ice hat. Pt reports pain right side of head, left jaw and left thigh. ETIENNE pain gets up to 5/10 with medication. Her neck pain is 4 /10. Left leg pain gets up to 7/10. She reports left leg pain as deep and shooting. Pt reports pain with walking on left leg. Pt reports that her left leg feels weak. The Cymbalta helps with nerve pain . Pt reports that her right eye brown does not yet move after surgery and the right side of her head is swollen. Mother states that pt still does not have any appetite. Treatment Goals Patient/Caregiver Goals Decrease pain, increase balance and leg strength. PT-OP-C Subjective Start: 08/22/20 07:37 Freq: Status: Active Protocol: Document 12/14/20 12:16 MB (Rec: 12/14/20 13:09 MB [id number]) OP-PT Subjective Patient Comments Patient Comments Pt reports that her light- headedness and dizziness are worse this week. Her headache was better for an hour after last treatment. She is going to ask neurologist about dropping the Namenda as it is not helpful. PT-OP-D Balance Start: 08/22/20 07:37 Freq: Status: Active Protocol: Document 08/23/20 12:13 MB (Rec: 08/23/20 14:14 MB [id number]) Balance Tests Romberg Romberg LOB to the right and then the left, socks and no shoes PT-OP-G Mobility & Gait Start: 08/22/20 07:37 Freq: Status: Active Protocol: Document 08/23/20 12:13 MB (Rec: 08/23/20 14:14 MB [id number]) OP Gait Assessment Gait Gait Assistance Required: Independent Distance (Feet) 50 Able to Maintain Weight Bearing Status Yes During Gait Assistive Devices Assistive Device None Orthotic/Prosthetic Devices or Brace: No Gait Deviations General Gait Pattern Decreased Stride Length Factors Limiting Gait Function Factors Limiting Gait Function Decreased Strength,Pain,Poor Balance Comments Gait Comments Pt favors the left leg, looks down at the floor, presents with hesitancy with gait PT-OP-H Neuro Start: 08/22/20 07:37 Freq: Status: Active Protocol: Document 08/23/20 12:13 MB (Rec: 08/23/20 14:14 MB [id number]) Sensation Evaluation Comments Summary Comments Pt reports numbness right temporal area and eye brow Coordination Evaluation Upper Extremity Tests Right Finger to Nose Test Normal Performance Pronation/Supination Test Normal Performance Left Finger to Nose Test Normal Performance Pronation/Supination Test Minimal Impairment Comments Coordination Comments Right toe tapping over opposite foot normal x5 reps, rapid and accurate. Slow with left toe tapping over right foot and inaccurate, given for exercise for home: 10 reps every hour when sitting Vital Signs Pulse 1 Pulse at Rest (bpm) 77 Pulse Assessment Method Cuff Blood Pressure Sitting Blood Pressure (90/60-120/80 mmHg) 132/90 H Blood Pressure Source Automatic Cuff,Right Upper Extremity Comments Vital Signs Comments Doctor note for BP written under precautions, pt is in recommended range today PT-OP-K Range of Motion Start: 08/22/20 07:37 Freq: Status: Active Protocol: Document 08/23/20 12:13 MB (Rec: 08/23/20 14:14 MB [id number]) TMJ Range of Motion Comments Comments R eyebrow does not raise, can minimally lower. Pt presents with mild right jaw deviation and minimal dropping of left side of mouth with smile Toe Range of Motion Toes ROM Limitations Comments Decreased active left great toe extension compared to the right PT-OP-M Strength Start: 08/22/20 07:37 Freq: Status: Active Protocol: Document 08/23/20 12:13 MB (Rec: 08/23/20 14:14 MB [id number]) Shoulder Strength Shoulder Manual Muscle Testing Left Flexion 4 Good Abduction (C5) 5 Normal Adduction 5 Normal Right Flexion 4 Good Abduction (C5) 5 Normal Elbow/Forearm Strength Elbow and Forearm Manual Muscle Testing Left Flexion (C6) 4 Good Extension (C7) 5 Normal Right Flexion (C6) 4 Good Extension (C7) 5 Normal Wrist Strength Wrist Manual Muscle Testing Left Flexion (C7) 4 Good Extension (C6) 4 Good Right Flexion (C7) 5 Normal Extension (C6) 5 Normal Hip Strength Hip Manual Muscle Testing Left Flexion (L2) 3+ Fair+ Comments Pt sitting Right Flexion (L2) 4 Good Comments Pt sitting Knee Strength Knee Manual Muscle Testing Left Flexion (S2) 4 Good Extension (L3) 4 Good Comments Pt sitting Right Flexion (S2) 5 Normal Extension (L3) 5 Normal Comments Pt sitting Ankle/Foot Strength Ankle and Foot Manual Muscle Testing Left Dorsiflexion (L4) 5 Normal Right Dorsiflexion (L4) 5 Normal Toe Strength Toe Manual Muscle Testing Great Toe Extension 3+ Fair+ Right Great Toe Extension 4 Good PT-OP-O Vestibular Start: 08/22/20 07:37 Freq: Status: Active Protocol: Document 08/23/20 12:13 MB (Rec: 08/23/20 14:14 MB [id number]) Vestibular Assessment Visual Testing Smooth Pursuits Horizontal Normal Smooth Pursuits Vertical Normal Gaze Evoked Nystagmus With Fixation Negative Convergence Test R impaired Spontaneous Nystagmus Negative Comments Vestibular Comments Left pupil with decreased reactivity to pen light but very minimal PT-OP-Q Treatments Start: 08/22/20 07:37 Freq: Status: Active Protocol: Document 12/14/20 12:16 MB (Rec: 12/14/20 13:09 MB [id number]) Manual Therapy Treatment Other Other Manual Treatments Pt agrees to Counterstrain to assess and treat fascial tension and PT treats stacks in LF and spinal medullary veins. PT performs gentle positional fascial release on cranial superficial fascial and positional release B SCM Self-Care/Home Management Treatment Education Other Education Ed pt to ask doctor about magnesium, gentle cranial fascial release with pushing tissue in direction of ease, proper sleeping position, importance of nasal breathing PT-OP-T Assessment and Plan Start: 08/22/20 07:37 Freq: Status: Active Protocol: Document 12/14/20 12:16 MB (Rec: 12/14/20 13:09 MB [id number]) Physical Therapy Assessment Rehab Potential Rehabilitation Potential Fair Evaluation Complexity Number of Personal Factors/Comorbidities 1-2 Number of Body Systems Impaired 3 Clinical Presentation at Evaluation Evolving Impairments Impairments Activity Tolerance,Balance, Edema,Gait,Integument,Pain, Posture,ROM,Sensation,Soft Tissue Mobility,Strength, Vestibular Other Impairments Personal factors: headache, decreased memory, slow speech. Body systems affected include musculoskeletal, neuromuscular, arterial. Her clinical presentation is not yet stable after brain surgery . Other Concerns Fall Risk Yes Goals 5 Diamond Driller Goal (LTG) Pt will gait train at least 1600 feet in 6 minutes without AD and no LOB by 01/15/2021. 11/15/20: Pt gait trains 1526 feet in 6 minutes and pt talks throughout the test LTG Duration 8 weeks 4 Diamond Driller Goal (LTG) Pt will perform progressive HEP with I including postural, flexibility, balance, LE strengthening, breathing, and VOR exercises to decrease symptoms and improve balance by 01/15/2021. 11/15/20: Pt is performing band exercises for legs, racquet ball and back inpatient services rn self- massage, breathing, walking the dog. LTG Duration 8 weeks 3 Diamond Driller Goal (LTG) Pt will present with improved left shoulder flexion, left hip flexion, left knee flexion and left great toe extension to 5/5 to improve balance by . 11/15/20: Left shoulder flexion , hip flexion and knee flexion are not improved. Left toe extension is 5/5 LTG Duration 8 weeks 2 Nursing Home Goal (LTG) Pt will report a 70% improvement in dizziness and headache symptoms to allow return to PLOF by 01/15/21. 11/15/20: Pt reports a 50% improvement in dizziness since starting PT. LTG Duration 8 weeks 1 Diamond Driller Goal (LTG) Pt will perform WNLs on FGA to decrease fall risk and improve balance by 01/15/21. 11/15/20: FGA score is 18/30 today which is improved from test 05/31/20 (pre-op) and was 17/30 LTG Duration 8 weeks Assessment Summary Assessment Con't only gentle palpation on right side of cranium in order to determine tight fascial systems. Lots of education today and pt to follow-up with her doctor. Con 't per plan below. Physical Therapy Plan Frequency and Duration Frequency of Treatment 1x/Week Duration of Treatment 8 weeks Plan of Care Start Date 11/15/20 Plan of Care End Date 02/13/21 Therapeutic Interventions Therapeutic Interventions Balance Training,Canalithic Repositioning,Coordination Training,Gait Training,Home Exercise Program,Joint Mobilizations,Manual Therapy, Neuromuscular Re-education, Patient/Caregiver Education, Self-Care/Home Management, Sensory Integration,Soft Tissue Mobilization,Taping, Therapeutic Activities, Therapeutic Exercises, Vestibular Rehabilitation Modalities Cold Pack/Ice Massage,Electric Stimulation,Hot Packs, Ultrasound Next Visit Focus/Plan Next Note Type Treatment Note Next Visit Plan Consider paper taping over mouth for treatments and watch symptoms and vitals, consider treating vagus nerve d/t nausea and also sacral tension . Add hip and knee flexion strengthening exercises, squatting exercises with balls and cones as pt is concerned about dizziness bending over, pelvic realignment exercises.
--- NOTE | 2020-12-21 13:14 | PT.OTN ---
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) Headache, unspecified (12/21/20) Weakness (12/21/20) Concussion with loss of consciousness of unspecified duration, subsequent encounter (12/21/20) Physical Therapy Treatment Note PT-OP-A Visit Information Start: 08/22/20 07:37 Freq: Status: Active Protocol: Document 12/21/20 12:15 MB (Rec: 12/21/20 13:11 MB [id number]) Out-Patient Physical Therapy Visit Information Visit Information Visit Type Treatment Note Visit Start Time 12:15 Visit Stop Time 13:15 Total Visit Minutes 60 Visit Number Precautions Precautions BP kept between 110-140/70-90, s/p right craniotomy PT-OP-B Current Condition Start: 08/22/20 07:37 Freq: Status: Active Protocol: Document 08/23/20 12:13 MB (Rec: 08/23/20 13:04 MB [id number]) Current Condition History of Current Condition Onset Date Surgery 07/27/20 Current Complaints Dizziness, light-headedness, ETIENNE and left leg pain and imbalance History of Current Condition 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 Pt had fall and concussion then as passed out. In PMH, pt writes back pain, superficial blood clot right LE, ulcers. Current complaints include: dizziness when active (walking and movements of neck), decreased processing words, headaches managed by medications, trouble opening right side of jaw post-op, neck pain and stiffness. Pt denies falls since surgery. Pt is wearing an ice hat. Pt reports pain right side of head, left jaw and left thigh. ETIENNE pain gets up to 5/10 with medication. Her neck pain is 4 /10. Left leg pain gets up to 7/10. She reports left leg pain as deep and shooting. Pt reports pain with walking on left leg. Pt reports that her left leg feels weak. The Cymbalta helps with nerve pain . Pt reports that her right eye brown does not yet move after surgery and the right side of her head is swollen. Mother states that pt still does not have any appetite. Treatment Goals Patient/Caregiver Goals Decrease pain, increase balance and leg strength. PT-OP-C Subjective Start: 08/22/20 07:37 Freq: Status: Active Protocol: Document 12/21/20 12:15 MB (Rec: 12/21/20 13:11 MB [id number]) OP-PT Subjective Patient Comments Patient Comments Pt reports that her head feels heavy today. She points to her B maxilla. She reports 4/ 10 ETIENNE before treatment. She had a good response to massage therapy and she was able to tolerate prone lying. PT-OP-D Balance Start: 08/22/20 07:37 Freq: Status: Active Protocol: Document 08/23/20 12:13 MB (Rec: 08/23/20 14:14 MB [id number]) Balance Tests Romberg Romberg LOB to the right and then the left, socks and no shoes PT-OP-G Mobility & Gait Start: 08/22/20 07:37 Freq: Status: Active Protocol: Document 08/23/20 12:13 MB (Rec: 08/23/20 14:14 MB [id number]) OP Gait Assessment Gait Gait Assistance Required: Independent Distance (Feet) 50 Able to Maintain Weight Bearing Status Yes During Gait Assistive Devices Assistive Device None Orthotic/Prosthetic Devices or Brace: No Gait Deviations General Gait Pattern Decreased Stride Length Factors Limiting Gait Function Factors Limiting Gait Function Decreased Strength,Pain,Poor Balance Comments Gait Comments Pt favors the left leg, looks down at the floor, presents with hesitancy with gait PT-OP-H Neuro Start: 08/22/20 07:37 Freq: Status: Active Protocol: Document 08/23/20 12:13 MB (Rec: 08/23/20 14:14 MB [id number]) Sensation Evaluation Comments Summary Comments Pt reports numbness right temporal area and eye brow Coordination Evaluation Upper Extremity Tests Right Finger to Nose Test Normal Performance Pronation/Supination Test Normal Performance Left Finger to Nose Test Normal Performance Pronation/Supination Test Minimal Impairment Comments Coordination Comments Right toe tapping over opposite foot normal x5 reps, rapid and accurate. Slow with left toe tapping over right foot and inaccurate, given for exercise for home: 10 reps every hour when sitting Vital Signs Pulse 1 Pulse at Rest (bpm) 77 Pulse Assessment Method Cuff Blood Pressure Sitting Blood Pressure (90/60-120/80 mmHg) 132/90 H Blood Pressure Source Automatic Cuff,Right Upper Extremity Comments Vital Signs Comments Doctor note for BP written under precautions, pt is in recommended range today PT-OP-K Range of Motion Start: 08/22/20 07:37 Freq: Status: Active Protocol: Document 08/23/20 12:13 MB (Rec: 08/23/20 14:14 MB [id number]) TMJ Range of Motion Comments Comments R eyebrow does not raise, can minimally lower. Pt presents with mild right jaw deviation and minimal dropping of left side of mouth with smile Toe Range of Motion Toes ROM Limitations Comments Decreased active left great toe extension compared to the right PT-OP-M Strength Start: 08/22/20 07:37 Freq: Status: Active Protocol: Document 08/23/20 12:13 MB (Rec: 08/23/20 14:14 MB [id number]) Shoulder Strength Shoulder Manual Muscle Testing Left Flexion 4 Good Abduction (C5) 5 Normal Adduction 5 Normal Right Flexion 4 Good Abduction (C5) 5 Normal Elbow/Forearm Strength Elbow and Forearm Manual Muscle Testing Left Flexion (C6) 4 Good Extension (C7) 5 Normal Right Flexion (C6) 4 Good Extension (C7) 5 Normal Wrist Strength Wrist Manual Muscle Testing Left Flexion (C7) 4 Good Extension (C6) 4 Good Right Flexion (C7) 5 Normal Extension (C6) 5 Normal Hip Strength Hip Manual Muscle Testing Left Flexion (L2) 3+ Fair+ Comments Pt sitting Right Flexion (L2) 4 Good Comments Pt sitting Knee Strength Knee Manual Muscle Testing Left Flexion (S2) 4 Good Extension (L3) 4 Good Comments Pt sitting Right Flexion (S2) 5 Normal Extension (L3) 5 Normal Comments Pt sitting Ankle/Foot Strength Ankle and Foot Manual Muscle Testing Left Dorsiflexion (L4) 5 Normal Right Dorsiflexion (L4) 5 Normal Toe Strength Toe Manual Muscle Testing Great Toe Extension 3+ Fair+ Right Great Toe Extension 4 Good PT-OP-O Vestibular Start: 08/22/20 07:37 Freq: Status: Active Protocol: Document 08/23/20 12:13 MB (Rec: 08/23/20 14:14 MB [id number]) Vestibular Assessment Visual Testing Smooth Pursuits Horizontal Normal Smooth Pursuits Vertical Normal Gaze Evoked Nystagmus With Fixation Negative Convergence Test R impaired Spontaneous Nystagmus Negative Comments Vestibular Comments Left pupil with decreased reactivity to pen light but very minimal PT-OP-Q Treatments Start: 08/22/20 07:37 Freq: Status: Active Protocol: Document 12/21/20 12:15 MB (Rec: 12/21/20 13:11 MB [id number]) Therapeutic Exercises Supine Exercises Buteyko breathing Supine Exercise Name Re-ed today, practiced diaphragm and rib excursion with stephen-type breath Comments Nasal breathing throughout Counterstrain Manual Therapy Treatment Other Other Manual Treatments Pt agrees to Counterstrain to assess and treat fascial tension and PT treats stacks in sympathetic system and pt reponds well. Mouth taped during Counterstrain treatment . Pt denies headache after treatment. Worked on nasal breathing with rib excursion with diaphragm breathing and pt responds well. PT-OP-T Assessment and Plan Start: 08/22/20 07:37 Freq: Status: Active Protocol: Document 12/21/20 12:15 MB (Rec: 12/21/20 13:11 MB [id number]) Physical Therapy Assessment Rehab Potential Rehabilitation Potential Fair Evaluation Complexity Number of Personal Factors/Comorbidities 1-2 Number of Body Systems Impaired 3 Clinical Presentation at Evaluation Evolving Impairments Impairments Activity Tolerance,Balance, Edema,Gait,Integument,Pain, Posture,ROM,Sensation,Soft Tissue Mobility,Strength, Vestibular Other Impairments Personal factors: headache, decreased memory, slow speech. Body systems affected include musculoskeletal, neuromuscular, arterial. Her clinical presentation is not yet stable after brain surgery . Other Concerns Fall Risk Yes Goals 5 Funeral Service Apprentice Goal (LTG) Pt will gait train at least 1600 feet in 6 minutes without AD and no LOB by 01/15/2021. 11/15/20: Pt gait trains 1526 feet in 6 minutes and pt talks throughout the test LTG Duration 8 weeks 4 Funeral Service Apprentice Goal (LTG) Pt will perform progressive HEP with I including postural, flexibility, balance, LE strengthening, breathing, and VOR exercises to decrease symptoms and improve balance by 01/15/2021. 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 LTG Duration 8 weeks 3 Skilled Nursing Goal (LTG) Pt will present with improved left shoulder flexion, left hip flexion, left knee flexion and left great toe extension to 5/5 to improve balance by . 11/15/20: Left shoulder flexion , hip flexion and knee flexion are not improved. Left toe extension is 5/5 LTG Duration 8 weeks 2 Funeral Service Apprentice Goal (LTG) Pt will report a 70% improvement in dizziness and headache symptoms to allow return to PLOF by 01/15/21. 11/15/20: Pt reports a 50% improvement in dizziness since starting PT. LTG Duration 8 weeks 1 Funeral Service Apprentice Goal (LTG) Pt will perform WNLs on FGA to decrease fall risk and improve balance by 01/15/21. 11/15/20: FGA score is 18/30 today which is improved from test 05/31/20 (pre-op) and was 17/30 LTG Duration 8 weeks Assessment Summary Assessment Counterstrain today with mouth taped and pt responds well and PT treats sympathetic fascial tension. Also reviewed and progressed Buteyko breathing to stimulate vagus nerve. Pt reports 4/10 ETIENNE before treatment and 0/10 after treatment. Physical Therapy Plan Frequency and Duration Frequency of Treatment 1x/Week Duration of Treatment 8 weeks Plan of Care Start Date 11/15/20 Plan of Care End Date 02/13/21 Therapeutic Interventions Therapeutic Interventions Balance Training,Canalithic Repositioning,Coordination Training,Gait Training,Home Exercise Program,Joint Mobilizations,Manual Therapy, Neuromuscular Re-education, Patient/Caregiver Education, Self-Care/Home Management, Sensory Integration,Soft Tissue Mobilization,Taping, Therapeutic Activities, Therapeutic Exercises, Vestibular Rehabilitation Modalities Cold Pack/Ice Massage,Electric Stimulation,Hot Packs, Ultrasound Next Visit Focus/Plan Next Note Type Treatment Note Next Visit Plan Add hip and knee flexion strengthening exercises, squatting exercises with balls and cones as pt is concerned about dizziness bending over, pelvic realignment exercises.
--- NOTE | 2020-12-28 13:03 | PT.OTN ---
Current Diagnoses Moyamoya disease (12/28/20) Headache, unspecified (12/28/20) Weakness (12/28/20) Concussion with loss of consciousness of unspecified duration, subsequent encounter (12/28/20) Physical Therapy Treatment Note PT-OP-A Visit Information Start: 08/22/20 07:37 Freq: Status: Active Protocol: Document 12/28/20 12:17 MB (Rec: 12/28/20 13:00 MB [id number]) Out-Patient Physical Therapy Visit Information Visit Information Visit Type Treatment Note Visit Start Time 12:17 Visit Stop Time 13:00 Total Visit Minutes 43 Visit Number Precautions Precautions BP kept between 110-140/70-90, s/p right craniotomy PT-OP-B Current Condition Start: 08/22/20 07:37 Freq: Status: Active Protocol: Document 08/23/20 12:13 MB (Rec: 08/23/20 13:04 MB [id number]) Current Condition History of Current Condition Onset Date Surgery 07/27/20 Current Complaints Dizziness, light-headedness, ETIENNE and left leg pain and imbalance History of Current Condition 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 Pt had fall and concussion then as passed out. In PMH, pt writes back pain, superficial blood clot right LE, ulcers. Current complaints include: dizziness when active (walking and movements of neck), decreased processing words, headaches managed by medications, trouble opening right side of jaw post-op, neck pain and stiffness. Pt denies falls since surgery. Pt is wearing an ice hat. Pt reports pain right side of head, left jaw and left thigh. ETIENNE pain gets up to 5/10 with medication. Her neck pain is 4 /10. Left leg pain gets up to 7/10. She reports left leg pain as deep and shooting. Pt reports pain with walking on left leg. Pt reports that her left leg feels weak. The Cymbalta helps with nerve pain . Pt reports that her right eye brown does not yet move after surgery and the right side of her head is swollen. Mother states that pt still does not have any appetite. Treatment Goals Patient/Caregiver Goals Decrease pain, increase balance and leg strength. PT-OP-C Subjective Start: 08/22/20 07:37 Freq: Status: Active Protocol: Document 12/28/20 12:17 MB (Rec: 12/28/20 13:00 MB [id number]) OP-PT Subjective Patient Comments Patient Comments Pt states that she felt a lot better for 1.5 hours after last Counterstrain treatment. She woke up with a good head day today. She follows-up with her ETIENNE doctor tomorrow virtually. She is going to ask to be off the Namenda and if she can start with magnesium citrate. She had an appointment with her PCP last week virtually but there was a technological problem and it was shortened. PT-OP-D Balance Start: 08/22/20 07:37 Freq: Status: Active Protocol: Document 08/23/20 12:13 MB (Rec: 08/23/20 14:14 MB [id number]) Balance Tests Romberg Romberg LOB to the right and then the left, socks and no shoes PT-OP-G Mobility & Gait Start: 08/22/20 07:37 Freq: Status: Active Protocol: Document 08/23/20 12:13 MB (Rec: 08/23/20 14:14 MB [id number]) OP Gait Assessment Gait Gait Assistance Required: Independent Distance (Feet) 50 Able to Maintain Weight Bearing Status Yes During Gait Assistive Devices Assistive Device None Orthotic/Prosthetic Devices or Brace: No Gait Deviations General Gait Pattern Decreased Stride Length Factors Limiting Gait Function Factors Limiting Gait Function Decreased Strength,Pain,Poor Balance Comments Gait Comments Pt favors the left leg, looks down at the floor, presents with hesitancy with gait PT-OP-H Neuro Start: 08/22/20 07:37 Freq: Status: Active Protocol: Document 08/23/20 12:13 MB (Rec: 08/23/20 14:14 MB [id number]) Sensation Evaluation Comments Summary Comments Pt reports numbness right temporal area and eye brow Coordination Evaluation Upper Extremity Tests Right Finger to Nose Test Normal Performance Pronation/Supination Test Normal Performance Left Finger to Nose Test Normal Performance Pronation/Supination Test Minimal Impairment Comments Coordination Comments Right toe tapping over opposite foot normal x5 reps, rapid and accurate. Slow with left toe tapping over right foot and inaccurate, given for exercise for home: 10 reps every hour when sitting Vital Signs Pulse 1 Pulse at Rest (bpm) 77 Pulse Assessment Method Cuff Blood Pressure Sitting Blood Pressure (90/60-120/80 mmHg) 132/90 H Blood Pressure Source Automatic Cuff,Right Upper Extremity Comments Vital Signs Comments Doctor note for BP written under precautions, pt is in recommended range today PT-OP-K Range of Motion Start: 08/22/20 07:37 Freq: Status: Active Protocol: Document 08/23/20 12:13 MB (Rec: 08/23/20 14:14 MB [id number]) TMJ Range of Motion Comments Comments R eyebrow does not raise, can minimally lower. Pt presents with mild right jaw deviation and minimal dropping of left side of mouth with smile Toe Range of Motion Toes ROM Limitations Comments Decreased active left great toe extension compared to the right PT-OP-M Strength Start: 08/22/20 07:37 Freq: Status: Active Protocol: Document 08/23/20 12:13 MB (Rec: 08/23/20 14:14 MB [id number]) Shoulder Strength Shoulder Manual Muscle Testing Left Flexion 4 Good Abduction (C5) 5 Normal Adduction 5 Normal Right Flexion 4 Good Abduction (C5) 5 Normal Elbow/Forearm Strength Elbow and Forearm Manual Muscle Testing Left Flexion (C6) 4 Good Extension (C7) 5 Normal Right Flexion (C6) 4 Good Extension (C7) 5 Normal Wrist Strength Wrist Manual Muscle Testing Left Flexion (C7) 4 Good Extension (C6) 4 Good Right Flexion (C7) 5 Normal Extension (C6) 5 Normal Hip Strength Hip Manual Muscle Testing Left Flexion (L2) 3+ Fair+ Comments Pt sitting Right Flexion (L2) 4 Good Comments Pt sitting Knee Strength Knee Manual Muscle Testing Left Flexion (S2) 4 Good Extension (L3) 4 Good Comments Pt sitting Right Flexion (S2) 5 Normal Extension (L3) 5 Normal Comments Pt sitting Ankle/Foot Strength Ankle and Foot Manual Muscle Testing Left Dorsiflexion (L4) 5 Normal Right Dorsiflexion (L4) 5 Normal Toe Strength Toe Manual Muscle Testing Great Toe Extension 3+ Fair+ Right Great Toe Extension 4 Good PT-OP-O Vestibular Start: 08/22/20 07:37 Freq: Status: Active Protocol: Document 08/23/20 12:13 MB (Rec: 08/23/20 14:14 MB [id number]) Vestibular Assessment Visual Testing Smooth Pursuits Horizontal Normal Smooth Pursuits Vertical Normal Gaze Evoked Nystagmus With Fixation Negative Convergence Test R impaired Spontaneous Nystagmus Negative Comments Vestibular Comments Left pupil with decreased reactivity to pen light but very minimal PT-OP-Q Treatments Start: 08/22/20 07:37 Freq: Status: Active Protocol: Document 12/28/20 12:17 MB (Rec: 12/28/20 13:00 MB [id number]) Therapeutic Exercises Sitting Exercises Knee flexion with band Side bilateral Comments 10 reps, alternating, legs dangling in sitting Hip flexion with band Side bilateral Comments 10 reps alternating, level 1 band around knees Clam with band Side bilateral Comments 10 reps, level 1 band, glute max squeeze first LAQ with AP Side bilateral Comments 5 reps each leg, AP 5 reps, level 1 band Ankle DF and eversion Side bilateral Comments 10 reps B, together Self-Care/Home Management Treatment Education Other Education Discussion about medications, side effects, following up with neurologist and pharmacist about her biggest complaints with medications, medication side-effects and interactions PT-OP-T Assessment and Plan Start: 08/22/20 07:37 Freq: Status: Active Protocol: Document 12/28/20 12:17 MB (Rec: 12/28/20 13:00 MB [id number]) Physical Therapy Assessment Rehab Potential Rehabilitation Potential Fair Evaluation Complexity Number of Personal Factors/Comorbidities 1-2 Number of Body Systems Impaired 3 Clinical Presentation at Evaluation Evolving Impairments Impairments Activity Tolerance,Balance, Edema,Gait,Integument,Pain, Posture,ROM,Sensation,Soft Tissue Mobility,Strength, Vestibular Other Impairments Personal factors: headache, decreased memory, slow speech. Body systems affected include musculoskeletal, neuromuscular, arterial. Her clinical presentation is not yet stable after brain surgery . Other Concerns Fall Risk Yes Goals 5 Concrete Crusher Loader Operator Goal (LTG) Pt will gait train at least 1600 feet in 6 minutes without AD and no LOB by 01/15/2021. 11/15/20: Pt gait trains 1526 feet in 6 minutes and pt talks throughout the test LTG Duration 8 weeks 4 Snf Goal (LTG) Pt will perform progressive HEP with I including postural, flexibility, balance, LE strengthening, breathing, and VOR exercises to decrease symptoms and improve balance by 01/15/2021. 11/15/20: Pt is performing band exercises for legs, racquet ball and back belt picker self- massage, breathing, walking the dog. LTG Duration 8 weeks 3 Snf Goal (LTG) Pt will present with improved left shoulder flexion, left hip flexion, left knee flexion and left great toe extension to 5/5 to improve balance by . 11/15/20: Left shoulder flexion , hip flexion and knee flexion are not improved. Left toe extension is 5/5 LTG Duration 8 weeks 2 Snf Goal (LTG) Pt will report a 70% improvement in dizziness and headache symptoms to allow return to PLOF by 01/15/21. 11/15/20: Pt reports a 50% improvement in dizziness since starting PT. LTG Duration 8 weeks 1 Snf Goal (LTG) Pt will perform WNLs on FGA to decrease fall risk and improve balance by 01/15/21. 11/15/20: FGA score is 18/30 today which is improved from test 05/31/20 (pre-op) and was 17/30 LTG Duration 8 weeks Assessment Summary Assessment Pt states that she does need her mom home by four in the afternoons d/t how she is feeling. She talks with headache doctor tomorrow. She asked her PCP about anxiety medication and PT encourages her to speak with pharmacist and neurologist about it. Progressed leg strengthening today. Will con't progression. Physical Therapy Plan Frequency and Duration Frequency of Treatment 1x/Week Duration of Treatment 8 weeks Plan of Care Start Date 11/15/20 Plan of Care End Date 02/13/21 Therapeutic Interventions Therapeutic Interventions Balance Training,Canalithic Repositioning,Coordination Training,Gait Training,Home Exercise Program,Joint Mobilizations,Manual Therapy, Neuromuscular Re-education, Patient/Caregiver Education, Self-Care/Home Management, Sensory Integration,Soft Tissue Mobilization,Taping, Therapeutic Activities, Therapeutic Exercises, Vestibular Rehabilitation Modalities Cold Pack/Ice Massage,Electric Stimulation,Hot Packs, Ultrasound Next Visit Focus/Plan Next Note Type Treatment Note Next Visit Plan Hip extension and abduction in standing/stepping in the future. Squatting exercises with balls and cones as pt is concerned about dizziness bending over, pelvic realignment exercises.
--- NOTE | 2021-01-11 13:01 | PT.OTN ---
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) Headache, unspecified (01/11/21) Weakness (01/11/21) Concussion with loss of consciousness of unspecified duration, subsequent encounter (01/11/21) Physical Therapy Treatment Note PT-OP-A Visit Information Start: 08/22/20 07:37 Freq: Status: Active Protocol: Document 01/11/21 12:19 MB (Rec: 01/11/21 13:01 MB [id number]) Out-Patient Physical Therapy Visit Information Visit Information Visit Type Treatment Note Visit Start Time 12:19 Visit Stop Time 13:00 Total Visit Minutes 41 Visit Number Precautions Precautions BP kept between 110-140/70-90, s/p right craniotomy PT-OP-B Current Condition Start: 08/22/20 07:37 Freq: Status: Active Protocol: Document 08/23/20 12:13 MB (Rec: 08/23/20 13:04 MB [id number]) Current Condition History of Current Condition Onset Date Surgery 07/27/20 Current Complaints Dizziness, light-headedness, ETIENNE and left leg pain and imbalance History of Current Condition 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 Pt had fall and concussion then as passed out. In PMH, pt writes back pain, superficial blood clot right LE, ulcers. Current complaints include: dizziness when active (walking and movements of neck), decreased processing words, headaches managed by medications, trouble opening right side of jaw post-op, neck pain and stiffness. Pt denies falls since surgery. Pt is wearing an ice hat. Pt reports pain right side of head, left jaw and left thigh. ETIENNE pain gets up to 5/10 with medication. Her neck pain is 4 /10. Left leg pain gets up to 7/10. She reports left leg pain as deep and shooting. Pt reports pain with walking on left leg. Pt reports that her left leg feels weak. The Cymbalta helps with nerve pain . Pt reports that her right eye brown does not yet move after surgery and the right side of her head is swollen. Mother states that pt still does not have any appetite. Treatment Goals Patient/Caregiver Goals Decrease pain, increase balance and leg strength. PT-OP-C Subjective Start: 08/22/20 07:37 Freq: Status: Active Protocol: Document 01/11/21 12:19 MB (Rec: 01/11/21 13:01 MB [id number]) OP-PT Subjective Patient Comments Patient Comments Pt states that she talked to the headache doctor and she was approved for magnesium. She states that the doctor would like for her to take a monthly shot or nasal spray. She is concerned about these. She is wondering about starting Busirone, anxiety medication again. Pt states that she woke up dizzy last week on PT day after sleeping a lot the day before after speech therapy. Speech fatigues her and fatigue in general is bad. She tends to have a sharp temporalis pain and then dizziness. PT-OP-D Balance Start: 08/22/20 07:37 Freq: Status: Active Protocol: Document 08/23/20 12:13 MB (Rec: 08/23/20 14:14 MB [id number]) Balance Tests Romberg Romberg LOB to the right and then the left, socks and no shoes PT-OP-G Mobility & Gait Start: 08/22/20 07:37 Freq: Status: Active Protocol: Document 08/23/20 12:13 MB (Rec: 08/23/20 14:14 MB [id number]) OP Gait Assessment Gait Gait Assistance Required: Independent Distance (Feet) 50 Able to Maintain Weight Bearing Status Yes During Gait Assistive Devices Assistive Device None Orthotic/Prosthetic Devices or Brace: No Gait Deviations General Gait Pattern Decreased Stride Length Factors Limiting Gait Function Factors Limiting Gait Function Decreased Strength,Pain,Poor Balance Comments Gait Comments Pt favors the left leg, looks down at the floor, presents with hesitancy with gait PT-OP-H Neuro Start: 08/22/20 07:37 Freq: Status: Active Protocol: Document 08/23/20 12:13 MB (Rec: 08/23/20 14:14 MB [id number]) Sensation Evaluation Comments Summary Comments Pt reports numbness right temporal area and eye brow Coordination Evaluation Upper Extremity Tests Right Finger to Nose Test Normal Performance Pronation/Supination Test Normal Performance Left Finger to Nose Test Normal Performance Pronation/Supination Test Minimal Impairment Comments Coordination Comments Right toe tapping over opposite foot normal x5 reps, rapid and accurate. Slow with left toe tapping over right foot and inaccurate, given for exercise for home: 10 reps every hour when sitting Vital Signs Pulse 1 Pulse at Rest (bpm) 77 Pulse Assessment Method Cuff Blood Pressure Sitting Blood Pressure (90/60-120/80 mmHg) 132/90 H Blood Pressure Source Automatic Cuff,Right Upper Extremity Comments Vital Signs Comments Doctor note for BP written under precautions, pt is in recommended range today PT-OP-K Range of Motion Start: 08/22/20 07:37 Freq: Status: Active Protocol: Document 08/23/20 12:13 MB (Rec: 08/23/20 14:14 MB [id number]) TMJ Range of Motion Comments Comments R eyebrow does not raise, can minimally lower. Pt presents with mild right jaw deviation and minimal dropping of left side of mouth with smile Toe Range of Motion Toes ROM Limitations Comments Decreased active left great toe extension compared to the right PT-OP-M Strength Start: 08/22/20 07:37 Freq: Status: Active Protocol: Document 08/23/20 12:13 MB (Rec: 08/23/20 14:14 MB [id number]) Shoulder Strength Shoulder Manual Muscle Testing Left Flexion 4 Good Abduction (C5) 5 Normal Adduction 5 Normal Right Flexion 4 Good Abduction (C5) 5 Normal Elbow/Forearm Strength Elbow and Forearm Manual Muscle Testing Left Flexion (C6) 4 Good Extension (C7) 5 Normal Right Flexion (C6) 4 Good Extension (C7) 5 Normal Wrist Strength Wrist Manual Muscle Testing Left Flexion (C7) 4 Good Extension (C6) 4 Good Right Flexion (C7) 5 Normal Extension (C6) 5 Normal Hip Strength Hip Manual Muscle Testing Left Flexion (L2) 3+ Fair+ Comments Pt sitting Right Flexion (L2) 4 Good Comments Pt sitting Knee Strength Knee Manual Muscle Testing Left Flexion (S2) 4 Good Extension (L3) 4 Good Comments Pt sitting Right Flexion (S2) 5 Normal Extension (L3) 5 Normal Comments Pt sitting Ankle/Foot Strength Ankle and Foot Manual Muscle Testing Left Dorsiflexion (L4) 5 Normal Right Dorsiflexion (L4) 5 Normal Toe Strength Toe Manual Muscle Testing Great Toe Extension 3+ Fair+ Right Great Toe Extension 4 Good PT-OP-O Vestibular Start: 08/22/20 07:37 Freq: Status: Active Protocol: Document 08/23/20 12:13 MB (Rec: 08/23/20 14:14 MB [id number]) Vestibular Assessment Visual Testing Smooth Pursuits Horizontal Normal Smooth Pursuits Vertical Normal Gaze Evoked Nystagmus With Fixation Negative Convergence Test R impaired Spontaneous Nystagmus Negative Comments Vestibular Comments Left pupil with decreased reactivity to pen light but very minimal PT-OP-Q Treatments Start: 08/22/20 07:37 Freq: Status: Active Protocol: Document 01/11/21 12:19 MB (Rec: 01/11/21 13:01 MB [id number]) Manual Therapy Treatment Other Other Manual Treatments Pt agrees to Counterstrain to assess and treat fascial tension and PT treats stacks in the following systems: sinuvertebral, falx cerebelli dura, spinal vein extension and pt tolerates well. PT-OP-T Assessment and Plan Start: 08/22/20 07:37 Freq: Status: Active Protocol: Document 01/11/21 12:19 MB (Rec: 01/11/21 13:01 MB [id number]) Physical Therapy Assessment Rehab Potential Rehabilitation Potential Fair Evaluation Complexity Number of Personal Factors/Comorbidities 1-2 Number of Body Systems Impaired 3 Clinical Presentation at Evaluation Evolving Impairments Impairments Activity Tolerance,Balance, Edema,Gait,Integument,Pain, Posture,ROM,Sensation,Soft Tissue Mobility,Strength, Vestibular Other Impairments Personal factors: headache, decreased memory, slow speech. Body systems affected include musculoskeletal, neuromuscular, arterial. Her clinical presentation is not yet stable after brain surgery . Other Concerns Fall Risk Yes Goals 5 Director Erp Goal (LTG) Pt will gait train at least 1600 feet in 6 minutes without AD and no LOB by 01/15/2021. 11/15/20: Pt gait trains 1526 feet in 6 minutes and pt talks throughout the test LTG Duration 8 weeks 4 Director Erp Goal (LTG) Pt will perform progressive HEP with I including postural, flexibility, balance, LE strengthening, breathing, and VOR exercises to decrease symptoms and improve balance by 01/15/2021. 11/15/20: Pt is performing band exercises for legs, racquet ball and back utility person self- massage, breathing, walking the dog. LTG Duration 8 weeks 3 Correction Goal (LTG) Pt will present with improved left shoulder flexion, left hip flexion, left knee flexion and left great toe extension to 5/5 to improve balance by . 11/15/20: Left shoulder flexion , hip flexion and knee flexion are not improved. Left toe extension is 5/5 LTG Duration 8 weeks 2 Correction Goal (LTG) Pt will report a 70% improvement in dizziness and headache symptoms to allow return to PLOF by 01/15/21. 11/15/20: Pt reports a 50% improvement in dizziness since starting PT. LTG Duration 8 weeks 1 Correction Goal (LTG) Pt will perform WNLs on FGA to decrease fall risk and improve balance by 01/15/21. 11/15/20: FGA score is 18/30 today which is improved from test 05/31/20 (pre-op) and was 17/30 LTG Duration 8 weeks Assessment Summary Assessment Pt con't to report concern about multiple medications. The things that have helped her include napping, PT and massage. Counterstrain was helpful today. Con't efforts. Physical Therapy Plan Frequency and Duration Frequency of Treatment 1x/Week Duration of Treatment 8 weeks Plan of Care Start Date 11/15/20 Plan of Care End Date 02/13/21 Therapeutic Interventions Therapeutic Interventions Balance Training,Canalithic Repositioning,Coordination Training,Gait Training,Home Exercise Program,Joint Mobilizations,Manual Therapy, Neuromuscular Re-education, Patient/Caregiver Education, Self-Care/Home Management, Sensory Integration,Soft Tissue Mobilization,Taping, Therapeutic Activities, Therapeutic Exercises, Vestibular Rehabilitation Modalities Cold Pack/Ice Massage,Electric Stimulation,Hot Packs, Ultrasound Next Visit Focus/Plan Next Note Type Treatment Note Next Visit Plan Ongoing Counterstrain as needed. Hip extension and abduction in standing/stepping in the future. Squatting exercises with balls and cones as pt is concerned about dizziness bending over, pelvic realignment exercises.
--- NOTE | 2021-01-18 09:37 | PT-OP ANOTE ---
Same day cancellation. Pt woke up sick.
--- NOTE | 2021-01-25 15:40 | PT.OTN ---
Current Diagnoses Moyamoya disease (01/25/21) Headache, unspecified (01/25/21) Weakness (01/25/21) Concussion with loss of consciousness of unspecified duration, subsequent encounter (01/25/21) Physical Therapy Treatment Note PT-OP-A Visit Information Start: 08/22/20 07:37 Freq: Status: Active Protocol: Document 01/25/21 12:17 MB (Rec: 01/25/21 12:59 MB [id number]) Out-Patient Physical Therapy Visit Information Visit Information Visit Type Treatment Note Visit Start Time 12:17 Visit Stop Time 13:00 Total Visit Minutes 43 Visit Number Precautions Precautions BP kept between 110-140/70-90, s/p right craniotomy PT-OP-B Current Condition Start: 08/22/20 07:37 Freq: Status: Active Protocol: Document 08/23/20 12:13 MB (Rec: 08/23/20 13:04 MB [id number]) Current Condition History of Current Condition Onset Date Surgery 07/27/20 Current Complaints Dizziness, light-headedness, ETIENNE and left leg pain and imbalance History of Current Condition 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 Pt had fall and concussion then as passed out. In PMH, pt writes back pain, superficial blood clot right LE, ulcers. Current complaints include: dizziness when active (walking and movements of neck), decreased processing words, headaches managed by medications, trouble opening right side of jaw post-op, neck pain and stiffness. Pt denies falls since surgery. Pt is wearing an ice hat. Pt reports pain right side of head, left jaw and left thigh. ETIENNE pain gets up to 5/10 with medication. Her neck pain is 4 /10. Left leg pain gets up to 7/10. She reports left leg pain as deep and shooting. Pt reports pain with walking on left leg. Pt reports that her left leg feels weak. The Cymbalta helps with nerve pain . Pt reports that her right eye brown does not yet move after surgery and the right side of her head is swollen. Mother states that pt still does not have any appetite. Treatment Goals Patient/Caregiver Goals Decrease pain, increase balance and leg strength. PT-OP-C Subjective Start: 08/22/20 07:37 Freq: Status: Active Protocol: Document 01/25/21 12:17 MB (Rec: 01/25/21 12:59 MB [id number]) OP-PT Subjective Patient Comments Patient Comments Pt states that she is better from being ill. She is really tired. She is sleeping 8-9 hours a night and taking a 3-4 hour nap. Usually, she feels better after the nap but lately not. Her left leg feels shaky again. It feels weak inside. The follow-up with doctors in [place] are Mar 16-. Pt states that her headaches are a little better. They are 2-3/10. They tend to be better when the fatigue happens and she thinks she is doing less and this improves the headaches. Hydration is going good. PT-OP-D Balance Start: 08/22/20 07:37 Freq: Status: Active Protocol: Document 08/23/20 12:13 MB (Rec: 08/23/20 14:14 MB [id number]) Balance Tests Romberg Romberg LOB to the right and then the left, socks and no shoes PT-OP-G Mobility & Gait Start: 08/22/20 07:37 Freq: Status: Active Protocol: Document 08/23/20 12:13 MB (Rec: 08/23/20 14:14 MB [id number]) OP Gait Assessment Gait Gait Assistance Required: Independent Distance (Feet) 50 Able to Maintain Weight Bearing Status Yes During Gait Assistive Devices Assistive Device None Orthotic/Prosthetic Devices or Brace: No Gait Deviations General Gait Pattern Decreased Stride Length Factors Limiting Gait Function Factors Limiting Gait Function Decreased Strength,Pain,Poor Balance Comments Gait Comments Pt favors the left leg, looks down at the floor, presents with hesitancy with gait PT-OP-H Neuro Start: 08/22/20 07:37 Freq: Status: Active Protocol: Document 08/23/20 12:13 MB (Rec: 08/23/20 14:14 MB [id number]) Sensation Evaluation Comments Summary Comments Pt reports numbness right temporal area and eye brow Coordination Evaluation Upper Extremity Tests Right Finger to Nose Test Normal Performance Pronation/Supination Test Normal Performance Left Finger to Nose Test Normal Performance Pronation/Supination Test Minimal Impairment Comments Coordination Comments Right toe tapping over opposite foot normal x5 reps, rapid and accurate. Slow with left toe tapping over right foot and inaccurate, given for exercise for home: 10 reps every hour when sitting Vital Signs Pulse 1 Pulse at Rest (bpm) 77 Pulse Assessment Method Cuff Blood Pressure Sitting Blood Pressure (90/60-120/80 mmHg) 132/90 H Blood Pressure Source Automatic Cuff,Right Upper Extremity Comments Vital Signs Comments Doctor note for BP written under precautions, pt is in recommended range today PT-OP-K Range of Motion Start: 08/22/20 07:37 Freq: Status: Active Protocol: Document 08/23/20 12:13 MB (Rec: 08/23/20 14:14 MB [id number]) TMJ Range of Motion Comments Comments R eyebrow does not raise, can minimally lower. Pt presents with mild right jaw deviation and minimal dropping of left side of mouth with smile Toe Range of Motion Toes ROM Limitations Comments Decreased active left great toe extension compared to the right PT-OP-M Strength Start: 08/22/20 07:37 Freq: Status: Active Protocol: Document 08/23/20 12:13 MB (Rec: 08/23/20 14:14 MB [id number]) Shoulder Strength Shoulder Manual Muscle Testing Left Flexion 4 Good Abduction (C5) 5 Normal Adduction 5 Normal Right Flexion 4 Good Abduction (C5) 5 Normal Elbow/Forearm Strength Elbow and Forearm Manual Muscle Testing Left Flexion (C6) 4 Good Extension (C7) 5 Normal Right Flexion (C6) 4 Good Extension (C7) 5 Normal Wrist Strength Wrist Manual Muscle Testing Left Flexion (C7) 4 Good Extension (C6) 4 Good Right Flexion (C7) 5 Normal Extension (C6) 5 Normal Hip Strength Hip Manual Muscle Testing Left Flexion (L2) 3+ Fair+ Comments Pt sitting Right Flexion (L2) 4 Good Comments Pt sitting Knee Strength Knee Manual Muscle Testing Left Flexion (S2) 4 Good Extension (L3) 4 Good Comments Pt sitting Right Flexion (S2) 5 Normal Extension (L3) 5 Normal Comments Pt sitting Ankle/Foot Strength Ankle and Foot Manual Muscle Testing Left Dorsiflexion (L4) 5 Normal Right Dorsiflexion (L4) 5 Normal Toe Strength Toe Manual Muscle Testing Great Toe Extension 3+ Fair+ Right Great Toe Extension 4 Good PT-OP-O Vestibular Start: 08/22/20 07:37 Freq: Status: Active Protocol: Document 08/23/20 12:13 MB (Rec: 08/23/20 14:14 MB [id number]) Vestibular Assessment Visual Testing Smooth Pursuits Horizontal Normal Smooth Pursuits Vertical Normal Gaze Evoked Nystagmus With Fixation Negative Convergence Test R impaired Spontaneous Nystagmus Negative Comments Vestibular Comments Left pupil with decreased reactivity to pen light but very minimal PT-OP-Q Treatments Start: 08/22/20 07:37 Freq: Status: Active Protocol: Document 01/25/21 12:17 MB (Rec: 01/25/21 12:59 MB [id number]) Therapeutic Exercises Supine Exercises Pelvic realignment exercises Side bilateral Comments 5 reps, 3 sec hold all exercises Other Exercises Use of back java software Comments Pt performs well today-- levator area B Self-Care/Home Management Treatment Education Other Education Wrote list for pt to think through/take to [facility]: 1-PT would like clearance for gentle palpation of full cranium, 2-Ask for medication review and consider asking questions about magnesium citrate and other supplements for headaches such as creatine that the doctor would have to clear, 3-Ask about symptoms that continue: headaches, dizziness, fatigue and newer complaints of left leg bothering her again, 4-Is there a recommended PT, speech , activity protocol? What about prognosis for going back to school? 5-Are there major red flags to look out for? Ed in benefits of therapy ball chair and pt sits on PT's desk chair during ed, benefits of pelvic realignment exercises, encouragement to email PT whenever she needs it PT-OP-T Assessment and Plan Start: 08/22/20 07:37 Freq: Status: Active Protocol: Document 01/25/21 12:17 MB (Rec: 01/25/21 12:59 MB [id number]) Physical Therapy Assessment Rehab Potential Rehabilitation Potential Fair Evaluation Complexity Number of Personal Factors/Comorbidities 1-2 Number of Body Systems Impaired 3 Clinical Presentation at Evaluation Evolving Impairments Impairments Activity Tolerance,Balance, Edema,Gait,Integument,Pain, Posture,ROM,Sensation,Soft Tissue Mobility,Strength, Vestibular Other Impairments Personal factors: headache, decreased memory, slow speech. Body systems affected include musculoskeletal, neuromuscular, arterial. Her clinical presentation is not yet stable after brain surgery . Other Concerns Fall Risk Yes Goals 5 Head Scorer Goal (LTG) Pt will gait train at least 1600 feet in 6 minutes without AD and no LOB by 06/27/2021. 01/25/21: Deferred today in order to provide ed and handout with questions for [facility] for pt 11/15/20: Pt gait trains 1526 feet in 6 minutes and pt talks throughout the test LTG Duration 20 weeks 4 Halfway Goal (LTG) Pt will perform progressive HEP with I including postural, flexibility, balance, LE strengthening, breathing, and VOR exercises to decrease symptoms and improve balance by 06/27/2021. 01/25/21: Pt is performing band exercises for legs, racquet ball and back java software self- massage, breathing, walking the dog. LTG Duration 20 weeks 3 Head Scorer Goal (LTG) Pt will present with improved left shoulder flexion, left hip flexion, left knee flexion and left great toe extension to / to improve balance by 06/27/21. 01/25/21: Deferred today d/t reports of left leg feeling off 11/15/20: Left shoulder flexion , hip flexion and knee flexion are not improved. Left toe extension is 5/5 LTG Duration 20 weeks 2 Halfway Goal (LTG) Pt will report a 70% improvement in dizziness and headache symptoms to allow return to PLOF by 06/27/21. 01/25/21: Pt reports a 50% improvement in dizziness since starting PT. LTG Duration 20 weeks 1 Head Scorer Goal (LTG) Pt will perform WNLs on FGA to decrease fall risk and improve balance by 06/27/21. 01/25/21: Deferred assessment today in order to provide education to pt 11/15/20: FGA score is 18/30 today which is improved from test 05/31/20 (pre-op) and was 17/30 LTG Duration 20 weeks Assessment Summary Assessment Pt has a newer complaint of left leg bothering her again and PT encourages her to contact nurse at [facility]. Her trip to [place] is in and PT and pt agree to hold PT visits until return in order to maximize PT visits. Provided education to pt today , pelvic realignment exercises and encouragement. Will set plan out 20 weeks and updated goals. PT encourages pt to call or email PT if any concerns between now and next treatment in March. Physical Therapy Plan Frequency and Duration Frequency of Treatment 1x biweekly Sept Duration of Treatment 20 weeks Plan of Care Start Date 01/25/21 Plan of Care End Date 06/27/21 Therapeutic Interventions Therapeutic Interventions Balance Training,Canalithic Repositioning,Coordination Training,Gait Training,Home Exercise Program,Joint Mobilizations,Manual Therapy, Neuromuscular Re-education, Patient/Caregiver Education, Self-Care/Home Management, Sensory Integration,Soft Tissue Mobilization,Taping, Therapeutic Activities, Therapeutic Exercises, Vestibular Rehabilitation Modalities Cold Pack/Ice Massage,Electric Stimulation,Hot Packs, Ultrasound Next Visit Focus/Plan Next Note Type Progress Note Next Visit Plan Ongoing Counterstrain as needed. Hip extension and abduction in standing/stepping in the future. Squatting exercises with balls and cones as pt is concerned about dizziness bending over
--- NOTE | 2021-01-25 15:41 | PT.OPPOC ---
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) Headache, unspecified (01/25/21) Weakness (01/25/21) Concussion with loss of consciousness of unspecified duration, subsequent encounter (01/25/21) Visit Care Team Role Provider Type Christen Figueroa PA-C Primary Care Provider Non-Staff Specialty: Family Practice Address: [address], [address], [place], [address] Email: TONE Riley Attending Provider Non-Staff Referring Provider Specialty: Nursing Address: [address] [place] [address] [address], [place], [address] Email: Plan Of Care PT-OP-T Assessment and Plan Start: 08/22/20 07:37 Freq: Status: Active Protocol: Document 01/25/21 12:17 MB (Rec: 01/25/21 12:59 MB [id number]) Physical Therapy Assessment Rehab Potential Rehabilitation Potential Fair Evaluation Complexity Number of Personal Factors/Comorbidities 1-2 Number of Body Systems Impaired 3 Clinical Presentation at Evaluation Evolving Impairments Impairments Activity Tolerance,Balance, Edema,Gait,Integument,Pain, Posture,ROM,Sensation,Soft Tissue Mobility,Strength, Vestibular Other Impairments Personal factors: headache, decreased memory, slow speech. Body systems affected include musculoskeletal, neuromuscular, arterial. Her clinical presentation is not yet stable after brain surgery . Other Concerns Fall Risk Yes Goals 5 Scrap Crusher Goal (LTG) Pt will gait train at least 1600 feet in 6 minutes without AD and no LOB by 06/27/2021. 01/25/21: Deferred today in order to provide ed and handout with questions for Shun for pt 11/15/20: Pt gait trains 1526 feet in 6 minutes and pt talks throughout the test LTG Duration 20 weeks 4 Scrap Crusher Goal (LTG) Pt will perform progressive HEP with I including postural, flexibility, balance, LE strengthening, breathing, and VOR exercises to decrease symptoms and improve balance by 06/27/2021. 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 LTG Duration 20 weeks 3 Usp Goal (LTG) Pt will present with improved left shoulder flexion, left hip flexion, left knee flexion and left great toe extension to 5/5 to improve balance by 06/27/21. 01/25/21: Deferred today d/t reports of left leg feeling off 11/15/20: Left shoulder flexion , hip flexion and knee flexion are not improved. Left toe extension is 5/5 LTG Duration 20 weeks 2 Usp Goal (LTG) Pt will report a 70% improvement in dizziness and headache symptoms to allow return to PLOF by 06/27/21. 01/25/21: Pt reports a 50% improvement in dizziness since starting PT. LTG Duration 20 weeks 1 Scrap Crusher Goal (LTG) Pt will perform WNLs on FGA to decrease fall risk and improve balance by 06/27/21. 01/25/21: Deferred assessment today in order to provide education to pt 11/15/20: FGA score is 18/30 today which is improved from test 05/31/20 (pre-op) and was 17/30 LTG Duration 20 weeks Assessment Summary Assessment Pt has a newer complaint of left leg bothering her again and PT encourages her to contact nurse at [place]. Her trip to [place] is in and PT and pt agree to hold PT visits until return in order to maximize PT visits. Provided education to pt today , pelvic realignment exercises and encouragement. Will set plan out 20 weeks and updated goals. PT encourages pt to call or email PT if any concerns between now and next treatment in March. Physical Therapy Plan Frequency and Duration Frequency of Treatment 1x biweekly [facility] Duration of Treatment 20 weeks Plan of Care Start Date 01/25/21 Plan of Care End Date 06/27/21 Therapeutic Interventions Therapeutic Interventions Balance Training,Canalithic Repositioning,Coordination Training,Gait Training,Home Exercise Program,Joint Mobilizations,Manual Therapy, Neuromuscular Re-education, Patient/Caregiver Education, Self-Care/Home Management, Sensory Integration,Soft Tissue Mobilization,Taping, Therapeutic Activities, Therapeutic Exercises, Vestibular Rehabilitation Modalities Cold Pack/Ice Massage,Electric Stimulation,Hot Packs, Ultrasound Next Visit Focus/Plan Next Note Type Progress Note Next Visit Plan Ongoing Counterstrain as needed. Hip extension and abduction in standing/stepping in the future. Squatting exercises with balls and cones as pt is concerned about dizziness bending over Plan of Care Dates Plan of Care Start Date 01/25/21 Plan of Care End Date 06/27/21 Electronically Signed by: Donita Cruz, PT 01/25/21 [id number] Please Sign and Return: I have reviewed this Plan of Care and certify that the skilled therapy services above are required to meet the patient?s needs. Physician Signature Date Printed Name and Credentials Clinical Instructor Signature Printed Name and Credentials
--- NOTE | 2021-03-29 13:27 | PT.OTN ---
Current Diagnoses Moyamoya disease (03/29/21) Headache, unspecified (03/29/21) Weakness (03/29/21) Concussion with loss of consciousness of unspecified duration, subsequent encounter (03/29/21) Physical Therapy Treatment Note PT-OP-A Visit Information Start: 08/22/20 07:37 Freq: Status: Active Protocol: Document 03/29/21 12:18 MB (Rec: 03/29/21 13:27 MB [id number]) Out-Patient Physical Therapy Visit Information Visit Information Visit Type Progress Note Visit Start Time 12:18 Visit Stop Time 13:18 Total Visit Minutes 60 Visit Number Precautions Precautions BP kept between 110-140/70-90, s/p right craniotomy, pt states that MoyaMoya surgeon cleared for PT to palpate all of her head PT-OP-B Current Condition Start: 08/22/20 07:37 Freq: Status: Active Protocol: Document 08/23/20 12:13 MB (Rec: 08/23/20 13:04 MB [id number]) Current Condition History of Current Condition Onset Date Surgery 07/27/20 Current Complaints Dizziness, light-headedness, ETIENNE and left leg pain and imbalance History of Current Condition 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 Pt had fall and concussion then as passed out. In PMH, pt writes back pain, superficial blood clot right LE, ulcers. Current complaints include: dizziness when active (walking and movements of neck), decreased processing words, headaches managed by medications, trouble opening right side of jaw post-op, neck pain and stiffness. Pt denies falls since surgery. Pt is wearing an ice hat. Pt reports pain right side of head, left jaw and left thigh. ETIENNE pain gets up to 5/10 with medication. Her neck pain is 4 /10. Left leg pain gets up to 7/10. She reports left leg pain as deep and shooting. Pt reports pain with walking on left leg. Pt reports that her left leg feels weak. The Cymbalta helps with nerve pain . Pt reports that her right eye brown does not yet move after surgery and the right side of her head is swollen. Mother states that pt still does not have any appetite. Treatment Goals Patient/Caregiver Goals Decrease pain, increase balance and leg strength. PT-OP-C Subjective Start: 08/22/20 07:37 Freq: Status: Active Protocol: Document 03/29/21 12:18 MB (Rec: 03/29/21 13:27 MB [id number]) OP-PT Subjective Patient Comments Patient Comments Pt went to [facility] Mar 14- . Overall, it was a good visit . The angiogram went well. The MRI was troublesome d/t severe vertigo d/t possible medication side effects. She also had ear plugs shoved inside her ears for the MRI and she thinks that was a lot of pressure on her ear. She was told that the surgery went well and the blood flow on her right side is slightly delayed from her heart per the angiogram. She was told that headaches and migraines were residual from MoyaMoya but that leg weakness, delayed cognitive processing, extreme fatigue, imbalance and extreme nausea are not. She was told that the headache specialist at [facility] may see her virtually. She will stop Ubervly as she was told that it could increase risk of stroke. She was also told to start a statin. 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 She will ask him about the statin. PT-OP-D Balance Start: 08/22/20 07:37 Freq: Status: Active Protocol: Document 08/23/20 12:13 MB (Rec: 08/23/20 14:14 MB [id number]) Balance Tests Romberg Romberg LOB to the right and then the left, socks and no shoes PT-OP-G Mobility & Gait Start: 08/22/20 07:37 Freq: Status: Active Protocol: Document 08/23/20 12:13 MB (Rec: 08/23/20 14:14 MB [id number]) OP Gait Assessment Gait Gait Assistance Required: Independent Distance (Feet) 50 Able to Maintain Weight Bearing Status Yes During Gait Assistive Devices Assistive Device None Orthotic/Prosthetic Devices or Brace: No Gait Deviations General Gait Pattern Decreased Stride Length Factors Limiting Gait Function Factors Limiting Gait Function Decreased Strength,Pain,Poor Balance Comments Gait Comments Pt favors the left leg, looks down at the floor, presents with hesitancy with gait PT-OP-H Neuro Start: 08/22/20 07:37 Freq: Status: Active Protocol: Document 08/23/20 12:13 MB (Rec: 08/23/20 14:14 MB [id number]) Sensation Evaluation Comments Summary Comments Pt reports numbness right temporal area and eye brow Coordination Evaluation Upper Extremity Tests Right Finger to Nose Test Normal Performance Pronation/Supination Test Normal Performance Left Finger to Nose Test Normal Performance Pronation/Supination Test Minimal Impairment Comments Coordination Comments Right toe tapping over opposite foot normal x5 reps, rapid and accurate. Slow with left toe tapping over right foot and inaccurate, given for exercise for home: 10 reps every hour when sitting Vital Signs Pulse 1 Pulse at Rest (bpm) 77 Pulse Assessment Method Cuff Blood Pressure Sitting Blood Pressure (90/60-120/80 mmHg) 132/90 H Blood Pressure Source Automatic Cuff,Right Upper Extremity Comments Vital Signs Comments Doctor note for BP written under precautions, pt is in recommended range today PT-OP-K Range of Motion Start: 08/22/20 07:37 Freq: Status: Active Protocol: Document 08/23/20 12:13 MB (Rec: 08/23/20 14:14 MB [id number]) TMJ Range of Motion Comments Comments R eyebrow does not raise, can minimally lower. Pt presents with mild right jaw deviation and minimal dropping of left side of mouth with smile Toe Range of Motion Toes ROM Limitations Comments Decreased active left great toe extension compared to the right PT-OP-M Strength Start: 08/22/20 07:37 Freq: Status: Active Protocol: Document 08/23/20 12:13 MB (Rec: 08/23/20 14:14 MB [id number]) Shoulder Strength Shoulder Manual Muscle Testing Left Flexion 4 Good Abduction (C5) 5 Normal Adduction 5 Normal Right Flexion 4 Good Abduction (C5) 5 Normal Elbow/Forearm Strength Elbow and Forearm Manual Muscle Testing Left Flexion (C6) 4 Good Extension (C7) 5 Normal Right Flexion (C6) 4 Good Extension (C7) 5 Normal Wrist Strength Wrist Manual Muscle Testing Left Flexion (C7) 4 Good Extension (C6) 4 Good Right Flexion (C7) 5 Normal Extension (C6) 5 Normal Hip Strength Hip Manual Muscle Testing Left Flexion (L2) 3+ Fair+ Comments Pt sitting Right Flexion (L2) 4 Good Comments Pt sitting Knee Strength Knee Manual Muscle Testing Left Flexion (S2) 4 Good Extension (L3) 4 Good Comments Pt sitting Right Flexion (S2) 5 Normal Extension (L3) 5 Normal Comments Pt sitting Ankle/Foot Strength Ankle and Foot Manual Muscle Testing Left Dorsiflexion (L4) 5 Normal Right Dorsiflexion (L4) 5 Normal Toe Strength Toe Manual Muscle Testing Great Toe Extension 3+ Fair+ Right Great Toe Extension 4 Good PT-OP-O Vestibular Start: 08/22/20 07:37 Freq: Status: Active Protocol: Document 08/23/20 12:13 MB (Rec: 08/23/20 14:14 MB [id number]) Vestibular Assessment Visual Testing Smooth Pursuits Horizontal Normal Smooth Pursuits Vertical Normal Gaze Evoked Nystagmus With Fixation Negative Convergence Test R impaired Spontaneous Nystagmus Negative Comments Vestibular Comments Left pupil with decreased reactivity to pen light but very minimal PT-OP-Q Treatments Start: 08/22/20 07:37 Freq: Status: Active Protocol: Document 03/29/21 12:18 MB (Rec: 03/29/21 13:27 MB [id number]) Therapeutic Exercises Supine Exercises Buteyko breathing Comments Verbally reviewed today Sitting Exercises Knee flexion with band Comments Verbally reviewed today Hip flexion with band Comments Verbally reviewed today Clam with band Comments Verbally reviewed today LAQ with AP Comments Verbally reviewed today Ankle DF and eversion Comments Verbally reviewed today Back signs and displays sales representative upper traps and levator with active cervical SB and rotation Comments Pt performs I, sitting today Other Exercises Use of back signs and displays sales representative Comments Pt performs well today sitting Reviewed HEP Comments Reviewed the exercises she is currently participating in at home Gait Training Gait Activity 6MWT Comments Performed today and distance is slightly longer than when last tested in October. She gait trains 1531 feet in 6 minutes with improved arm swing and no LOB Neuro Re-Education Treatment Balance Activities FGA Comments Performed today and score is slightly less than in October 2020 at 16/30 Added FGA balance tasks for home to perform in hallway with mother nearby and finger on wall: up and down head turns, right and left head turns, normal and slow gait speed with similar big steps, eyes closed and backwards walking. Ed to perform 1 rep of each in a circuit for 5 circuits, 6x/wk Tandem gait is too hard and pt cannot perform safely today PT-OP-T Assessment and Plan Start: 08/22/20 07:37 Freq: Status: Active Protocol: Document 03/29/21 12:18 MB (Rec: 03/29/21 13:27 MB [id number]) Physical Therapy Assessment Rehab Potential Rehabilitation Potential Fair Evaluation Complexity Number of Personal Factors/Comorbidities 1-2 Number of Body Systems Impaired 3 Clinical Presentation at Evaluation Evolving Impairments Impairments Activity Tolerance,Balance, Edema,Gait,Integument,Pain, Posture,ROM,Sensation,Soft Tissue Mobility,Strength, Vestibular Other Impairments Personal factors: headache, decreased memory, slow speech. Body systems affected include musculoskeletal, neuromuscular, arterial. Her clinical presentation is not yet stable after brain surgery . Other Concerns Fall Risk Yes Goals 5 Retirement Goal (LTG) Pt will gait train at least 1600 feet in 6 minutes without AD and no LOB by 06/14/2021. 03/29/21: Pt gait trains 1531 feet in 6 minutes, which is 3 feet further than when last tested in October 2020 LTG Duration 10 weeks 4 Human Resources Representative Goal (LTG) Pt will perform progressive HEP with I including postural, flexibility, balance, LE strengthening, breathing, and VOR exercises to decrease symptoms and improve balance by 06/14/2021. 03/29/21: Pt is performing band exercises for legs, back signs and displays sales representative self-massage, breathing, walking the dog. LTG Duration 10 weeks 3 Retirement Goal (LTG) Pt will present with improved left shoulder flexion, left hip flexion, left knee flexion and left great toe extension to 5/5 to improve balance by 06/14/21. 03/29/21: Left shoulder flexion is 3+/5; left hip flexion 4/5 ; left knee flexion 4/5; left great toe extension 4/5. LTG Duration 10 weeks 2 Retirement Goal (LTG) Pt will report a 70% improvement in dizziness and headache symptoms to allow return to PLOF by 06/14/21. 03/29/21: Pt reports that in the recent weeks, her dizziness has gotten worse. It gets worse when she does not have PT for a long time and when she is playin with her down. Squatting too fast and sudden head movements are provocative. LTG Duration 10 weeks 1 Retirement Goal (LTG) Pt will perform WNLs on FGA to decrease fall risk and improve balance by 06/14/21. 03/29/21: FGA score is 16/30, indicating increased risk for falling and added balance exercise for home today based on FGA activities and findings LTG Duration 10 weeks Assessment Summary Assessment Pt returns to PT after visit to [place]. Her dizziness has been worse lately and her balance testing is 2 points less than when last tested in October. Her 6MWT is slightly faster than October. She has con't to perform some of her HEP exercises but not all of them. Reviewed many today and may need to practice the others in future PT treatments. Added balance exercises for home today. Restart Counterstrain next treatment date. Pt states that doctor cleared PT to palpate her whole cranium. She will benefit from ongoing PT for manual, balance, strengthening and gait interventions. There are 4 visits remaining with insurance this year, so will stagger out appointments. Physical Therapy Plan Frequency and Duration Frequency of Treatment 1x/Week Duration of Treatment 10 weeks Plan of Care Start Date 03/29/21 Plan of Care End Date 06/14/21 Therapeutic Interventions Therapeutic Interventions Balance Training,Canalithic Repositioning,Coordination Training,Gait Training,Home Exercise Program,Joint Mobilizations,Manual Therapy, Neuromuscular Re-education, Patient/Caregiver Education, Self-Care/Home Management, Sensory Integration,Soft Tissue Mobilization,Taping, Therapeutic Activities, Therapeutic Exercises, Vestibular Rehabilitation Modalities Cold Pack/Ice Massage,Electric Stimulation,Hot Packs, Ultrasound Next Visit Focus/Plan Next Note Type Treatment Note Next Visit Plan Ongoing Counterstrain as needed. Hip extension and abduction in standing/stepping in the future. Squatting exercises with balls and cones as pt is concerned about dizziness bending over
--- NOTE | 2021-03-29 13:28 | PT.OPPOC ---
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) Headache, unspecified (03/29/21) Weakness (03/29/21) Concussion with loss of consciousness of unspecified duration, subsequent encounter (03/29/21) Visit Care Team Role Provider Type Christen Figueroa PA-C Primary Care Provider Non-Staff Specialty: Family Practice Address: [address], [address], [place], [address] Email: TONE Riley Attending Provider Non-Staff Referring Provider Specialty: Nursing Address: [address] [place] [address] [address], [place], [address] Email: Plan Of Care PT-OP-T Assessment and Plan Start: 08/22/20 07:37 Freq: Status: Active Protocol: Document 03/29/21 12:18 MB (Rec: 03/29/21 13:27 MB [id number]) Physical Therapy Assessment Rehab Potential Rehabilitation Potential Fair Evaluation Complexity Number of Personal Factors/Comorbidities 1-2 Number of Body Systems Impaired 3 Clinical Presentation at Evaluation Evolving Impairments Impairments Activity Tolerance,Balance, Edema,Gait,Integument,Pain, Posture,ROM,Sensation,Soft Tissue Mobility,Strength, Vestibular Other Impairments Personal factors: headache, decreased memory, slow speech. Body systems affected include musculoskeletal, neuromuscular, arterial. Her clinical presentation is not yet stable after brain surgery . Other Concerns Fall Risk Yes Goals 5 Assisted Goal (LTG) Pt will gait train at least 1600 feet in 6 minutes without AD and no LOB by 06/14/2021. 03/29/21: Pt gait trains 1531 feet in 6 minutes, which is 3 feet further than when last tested in October 2020 LTG Duration 10 weeks 4 Assisted Goal (LTG) Pt will perform progressive HEP with I including postural, flexibility, balance, LE strengthening, breathing, and VOR exercises to decrease symptoms and improve balance by 06/14/2021. 03/29/21: Pt is performing band exercises for legs, back customer services manager self-massage, breathing, walking the dog. LTG Duration 10 weeks 3 Paintings Restorer Goal (LTG) Pt will present with improved left shoulder flexion, left hip flexion, left knee flexion and left great toe extension to 5/5 to improve balance by 06/14/21. 03/29/21: Left shoulder flexion is 3+/5; left hip flexion 4/5 ; left knee flexion 4/5; left great toe extension 4/5. LTG Duration 10 weeks 2 Paintings Restorer Goal (LTG) Pt will report a 70% improvement in dizziness and headache symptoms to allow return to PLOF by 06/14/21. 03/29/21: Pt reports that in the recent weeks, her dizziness has gotten worse. It gets worse when she does not have PT for a long time and when she is playin with her down. Squatting too fast and sudden head movements are provocative. LTG Duration 10 weeks 1 Paintings Restorer Goal (LTG) Pt will perform WNLs on FGA to decrease fall risk and improve balance by 06/14/21. 03/29/21: FGA score is 16/30, indicating increased risk for falling and added balance exercise for home today based on FGA activities and findings LTG Duration 10 weeks Assessment Summary Assessment Pt returns to PT after visit to [place]. Her dizziness has been worse lately and her balance testing is 2 points less than when last tested in October. Her 6MWT is slightly faster than October. She has con't to perform some of her HEP exercises but not all of them. Reviewed many today and may need to practice the others in future PT treatments. Added balance exercises for home today. Restart Counterstrain next treatment date. Pt states that doctor cleared PT to palpate her whole cranium. She will benefit from ongoing PT for manual, balance, strengthening and gait interventions. There are 4 visits remaining with insurance this year, so will stagger out appointments. Physical Therapy Plan Frequency and Duration Frequency of Treatment 1x/Week Duration of Treatment 10 weeks Plan of Care Start Date 03/29/21 Plan of Care End Date 06/14/21 Therapeutic Interventions Therapeutic Interventions Balance Training,Canalithic Repositioning,Coordination Training,Gait Training,Home Exercise Program,Joint Mobilizations,Manual Therapy, Neuromuscular Re-education, Patient/Caregiver Education, Self-Care/Home Management, Sensory Integration,Soft Tissue Mobilization,Taping, Therapeutic Activities, Therapeutic Exercises, Vestibular Rehabilitation Modalities Cold Pack/Ice Massage,Electric Stimulation,Hot Packs, Ultrasound Next Visit Focus/Plan Next Note Type Treatment Note Next Visit Plan Ongoing Counterstrain as needed. Hip extension and abduction in standing/stepping in the future. Squatting exercises with balls and cones as pt is concerned about dizziness bending over Plan of Care Dates Plan of Care Start Date 03/29/21 Plan of Care End Date 06/14/21 Electronically Signed by: Donita Cruz PT 03/29/21 1548 Please Sign and Return: I have reviewed this Plan of Care and certify that the skilled therapy services above are required to meet the patient?s needs. Physician Signature Date Printed Name and Credentials Clinical Instructor Signature Printed Name and Credentials
--- NOTE | 2021-04-26 13:25 | PT.OTN ---
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) Headache, unspecified (04/26/21) Weakness (04/26/21) Concussion with loss of consciousness of unspecified duration, subsequent encounter (04/26/21) Physical Therapy Treatment Note PT-OP-A Visit Information Start: 08/22/20 07:37 Freq: Status: Active Protocol: Document 04/26/21 12:16 MB (Rec: 04/26/21 13:25 MB [id number]) Out-Patient Physical Therapy Visit Information Visit Information Visit Type Treatment Note Visit Start Time 12:16 Visit Stop Time 13:16 Total Visit Minutes 60 Visit Number Precautions Precautions BP kept between 110-140/70-90, s/p right craniotomy, pt states that [facility]oyaMoya surgeon cleared for PT to palpate all of her head PT-OP-B Current Condition Start: 08/22/20 07:37 Freq: Status: Active Protocol: Document 08/23/20 12:13 MB (Rec: 08/23/20 13:04 MB [id number]) Current Condition History of Current Condition Onset Date Surgery 07/27/20 Current Complaints Dizziness, light-headedness, ETIENNE and left leg pain and imbalance History of Current Condition 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 Pt had fall and concussion then as passed out. In PMH, pt writes back pain, superficial blood clot right LE, ulcers. Current complaints include: dizziness when active (walking and movements of neck), decreased processing words, headaches managed by medications, trouble opening right side of jaw post-op, neck pain and stiffness. Pt denies falls since surgery. Pt is wearing an ice hat. Pt reports pain right side of head, left jaw and left thigh. ETIENNE pain gets up to 5/10 with medication. Her neck pain is 4 /10. Left leg pain gets up to 7/10. She reports left leg pain as deep and shooting. Pt reports pain with walking on left leg. Pt reports that her left leg feels weak. The Cymbalta helps with nerve pain . Pt reports that her right eye brown does not yet move after surgery and the right side of her head is swollen. Mother states that pt still does not have any appetite. Treatment Goals Patient/Caregiver Goals Decrease pain, increase balance and leg strength. PT-OP-C Subjective Start: 08/22/20 07:37 Freq: Status: Active Protocol: Document 04/26/21 12:16 MB (Rec: 04/26/21 13:25 MB [id number]) OP-PT Subjective Patient Comments Patient Comments Pt is leaving for a memorial in [place] this weekend. She will be away 9 days. Pt reports concern about increased irritability over the past month. Her periods are irregular and have been so over the same amount of time. PT-OP-D Balance Start: 08/22/20 07:37 Freq: Status: Active Protocol: Document 08/23/20 12:13 MB (Rec: 08/23/20 14:14 MB [id number]) Balance Tests Romberg Romberg LOB to the right and then the left, socks and no shoes PT-OP-G Mobility & Gait Start: 08/22/20 07:37 Freq: Status: Active Protocol: Document 08/23/20 12:13 MB (Rec: 08/23/20 14:14 MB [id number]) OP Gait Assessment Gait Gait Assistance Required: Independent Distance (Feet) 50 Able to Maintain Weight Bearing Status Yes During Gait Assistive Devices Assistive Device None Orthotic/Prosthetic Devices or Brace: No Gait Deviations General Gait Pattern Decreased Stride Length Factors Limiting Gait Function Factors Limiting Gait Function Decreased Strength,Pain,Poor Balance Comments Gait Comments Pt favors the left leg, looks down at the floor, presents with hesitancy with gait PT-OP-H Neuro Start: 08/22/20 07:37 Freq: Status: Active Protocol: Document 08/23/20 12:13 MB (Rec: 08/23/20 14:14 MB [id number]) Sensation Evaluation Comments Summary Comments Pt reports numbness right temporal area and eye brow Coordination Evaluation Upper Extremity Tests Right Finger to Nose Test Normal Performance Pronation/Supination Test Normal Performance Left Finger to Nose Test Normal Performance Pronation/Supination Test Minimal Impairment Comments Coordination Comments Right toe tapping over opposite foot normal x5 reps, rapid and accurate. Slow with left toe tapping over right foot and inaccurate, given for exercise for home: 10 reps every hour when sitting Vital Signs Pulse 1 Pulse at Rest (bpm) 77 Pulse Assessment Method Cuff Blood Pressure Sitting Blood Pressure (90/60-120/80 mmHg) 132/90 H Blood Pressure Source Automatic Cuff,Right Upper Extremity Comments Vital Signs Comments Doctor note for BP written under precautions, pt is in recommended range today PT-OP-K Range of Motion Start: 08/22/20 07:37 Freq: Status: Active Protocol: Document 08/23/20 12:13 MB (Rec: 08/23/20 14:14 MB [id number]) TMJ Range of Motion Comments Comments R eyebrow does not raise, can minimally lower. Pt presents with mild right jaw deviation and minimal dropping of left side of mouth with smile Toe Range of Motion Toes ROM Limitations Comments Decreased active left great toe extension compared to the right PT-OP-M Strength Start: 08/22/20 07:37 Freq: Status: Active Protocol: Document 08/23/20 12:13 MB (Rec: 08/23/20 14:14 MB [id number]) Shoulder Strength Shoulder Manual Muscle Testing Left Flexion 4 Good Abduction (C5) 5 Normal Adduction 5 Normal Right Flexion 4 Good Abduction (C5) 5 Normal Elbow/Forearm Strength Elbow and Forearm Manual Muscle Testing Left Flexion (C6) 4 Good Extension (C7) 5 Normal Right Flexion (C6) 4 Good Extension (C7) 5 Normal Wrist Strength Wrist Manual Muscle Testing Left Flexion (C7) 4 Good Extension (C6) 4 Good Right Flexion (C7) 5 Normal Extension (C6) 5 Normal Hip Strength Hip Manual Muscle Testing Left Flexion (L2) 3+ Fair+ Comments Pt sitting Right Flexion (L2) 4 Good Comments Pt sitting Knee Strength Knee Manual Muscle Testing Left Flexion (S2) 4 Good Extension (L3) 4 Good Comments Pt sitting Right Flexion (S2) 5 Normal Extension (L3) 5 Normal Comments Pt sitting Ankle/Foot Strength Ankle and Foot Manual Muscle Testing Left Dorsiflexion (L4) 5 Normal Right Dorsiflexion (L4) 5 Normal Toe Strength Toe Manual Muscle Testing Great Toe Extension 3+ Fair+ Right Great Toe Extension 4 Good PT-OP-O Vestibular Start: 08/22/20 07:37 Freq: Status: Active Protocol: Document 08/23/20 12:13 MB (Rec: 08/23/20 14:14 MB [id number]) Vestibular Assessment Visual Testing Smooth Pursuits Horizontal Normal Smooth Pursuits Vertical Normal Gaze Evoked Nystagmus With Fixation Negative Convergence Test R impaired Spontaneous Nystagmus Negative Comments Vestibular Comments Left pupil with decreased reactivity to pen light but very minimal PT-OP-Q Treatments Start: 08/22/20 07:37 Freq: Status: Active Protocol: Document 04/26/21 12:16 MB (Rec: 04/26/21 13:25 MB [id number]) Manual Therapy Treatment Other Other Manual Treatments Pt states that surgeon cleared PT to palpate all of head ( right side as well). Pt agrees to Counterstrain to assess and treat fascial tension and pt presents with tension in the following fascial systems: dura, spinal vein medullary, C1 periosteal Self-Care/Home Management Treatment Education Other Education List for [place] given to pt: cold pack/ice hat, electrolyte packets, drink plenty of fluid --8 oz every hour on the plane , compression for legs, eye cover, cervical pillow, sunscreen--try not to get burned that would dehydrate and provoke headaches, sandals , sunglasses hat with big rim, bugspray/off, masks, contact PT as needed over trip Ed pt in benefits of Concussion Fix for education Speak with provider about hormonal/metabolic work-up PT-OP-T Assessment and Plan Start: 08/22/20 07:37 Freq: Status: Active Protocol: Document 04/26/21 12:16 MB (Rec: 04/26/21 13:25 MB [id number]) Physical Therapy Assessment Rehab Potential Rehabilitation Potential Fair Evaluation Complexity Number of Personal Factors/Comorbidities 1-2 Number of Body Systems Impaired 3 Clinical Presentation at Evaluation Evolving Impairments Impairments Activity Tolerance,Balance, Edema,Gait,Integument,Pain, Posture,ROM,Sensation,Soft Tissue Mobility,Strength, Vestibular Other Impairments Personal factors: headache, decreased memory, slow speech. Body systems affected include musculoskeletal, neuromuscular, arterial. Her clinical presentation is not yet stable after brain surgery . Other Concerns Fall Risk Yes Goals 5 Half-Way Goal (LTG) Pt will gait train at least 1600 feet in 6 minutes without AD and no LOB by 06/14/2021. 03/29/21: Pt gait trains 1531 feet in 6 minutes, which is 3 feet further than when last tested in October 2020 LTG Duration 10 weeks 4 Nut Tightener Goal (LTG) Pt will perform progressive HEP with I including postural, flexibility, balance, LE strengthening, breathing, and VOR exercises to decrease symptoms and improve balance by 06/14/2021. 03/29/21: Pt is performing band exercises for legs, back carton liner self-massage, breathing, walking the dog. LTG Duration 10 weeks 3 Nut Tightener Goal (LTG) Pt will present with improved left shoulder flexion, left hip flexion, left knee flexion and left great toe extension to 5/5 to improve balance by 06/14/21. 03/29/21: Left shoulder flexion is 3+/5; left hip flexion 4/5 ; left knee flexion 4/5; left great toe extension 4/5. LTG Duration 10 weeks 2 Nut Tightener Goal (LTG) Pt will report a 70% improvement in dizziness and headache symptoms to allow return to PLOF by 06/14/21. 03/29/21: Pt reports that in the recent weeks, her dizziness has gotten worse. It gets worse when she does not have PT for a long time and when she is playin with her down. Squatting too fast and sudden head movements are provocative. LTG Duration 10 weeks 1 Half-Way Goal (LTG) Pt will perform WNLs on FGA to decrease fall risk and improve balance by 06/14/21. 03/29/21: FGA score is 16/30, indicating increased risk for falling and added balance exercise for home today based on FGA activities and findings LTG Duration 10 weeks Assessment Summary Assessment Pt responds well to Counterstrain this date. Will con't to benefit from Counterstrain and would like to progress LE strengthening and review her HEP in future treatment dates. Physical Therapy Plan Frequency and Duration Frequency of Treatment 1x/Week Duration of Treatment 10 weeks Plan of Care Start Date 03/29/21 Plan of Care End Date 06/14/21 Therapeutic Interventions Therapeutic Interventions Balance Training,Canalithic Repositioning,Coordination Training,Gait Training,Home Exercise Program,Joint Mobilizations,Manual Therapy, Neuromuscular Re-education, Patient/Caregiver Education, Self-Care/Home Management, Sensory Integration,Soft Tissue Mobilization,Taping, Therapeutic Activities, Therapeutic Exercises, Vestibular Rehabilitation Modalities Cold Pack/Ice Massage,Electric Stimulation,Hot Packs, Ultrasound Next Visit Focus/Plan Next Note Type Treatment Note Next Visit Plan Con't Counterstrain as needed. Hip extension and abduction in standing/stepping in the future. Squatting exercises with balls and cones as pt is concerned about dizziness bending over
--- NOTE | 2021-05-10 13:04 | PT.OTN ---
Current Diagnoses Moyamoya disease (05/10/21) Headache, unspecified (05/10/21) Weakness (05/10/21) Concussion with loss of consciousness of unspecified duration, subsequent encounter (05/10/21) Physical Therapy Treatment Note PT-OP-A Visit Information Start: 08/22/20 07:37 Freq: Status: Active Protocol: Document 05/10/21 12:15 MB (Rec: 05/10/21 13:03 MB [id number]) Out-Patient Physical Therapy Visit Information Visit Information Visit Type Treatment Note Visit Start Time 12:15 Visit Stop Time 13:00 Total Visit Minutes 45 Visit Number Precautions Precautions BP kept between 110-140/70-90, s/p right craniotomy, pt states that [facility]oya surgeon cleared for PT to palpate all of her head PT-OP-B Current Condition Start: 08/22/20 07:37 Freq: Status: Active Protocol: Document 08/23/20 12:13 MB (Rec: 08/23/20 13:04 MB [id number]) Current Condition History of Current Condition Onset Date Surgery 07/27/20 Current Complaints Dizziness, light-headedness, ETIENNE and left leg pain and imbalance History of Current Condition 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 Pt had fall and concussion then as passed out. In PMH, pt writes back pain, superficial blood clot right LE, ulcers. Current complaints include: dizziness when active (walking and movements of neck), decreased processing words, headaches managed by medications, trouble opening right side of jaw post-op, neck pain and stiffness. Pt denies falls since surgery. Pt is wearing an ice hat. Pt reports pain right side of head, left jaw and left thigh. ETIENNE pain gets up to 5/10 with medication. Her neck pain is 4 /10. Left leg pain gets up to 7/10. She reports left leg pain as deep and shooting. Pt reports pain with walking on left leg. Pt reports that her left leg feels weak. The Cymbalta helps with nerve pain . Pt reports that her right eye brown does not yet move after surgery and the right side of her head is swollen. Mother states that pt still does not have any appetite. Treatment Goals Patient/Caregiver Goals Decrease pain, increase balance and leg strength. PT-OP-C Subjective Start: 08/22/20 07:37 Freq: Status: Active Protocol: Document 05/10/21 12:15 MB (Rec: 05/10/21 13:03 MB [id number]) OP-PT Subjective Patient Comments Patient Comments Pt returned from [place] and the trip went pretty well. Riding in the airplane jostled her brain some. Riding on the boat for the [employer] was okay but getting off was troublesome and she had vertigo the day after for half a day. She is feeling better. She is just a wee dizzy now. Pt will have a neuropsych eval next week for disability. PT-OP-D Balance Start: 08/22/20 07:37 Freq: Status: Active Protocol: Document 08/23/20 12:13 MB (Rec: 08/23/20 14:14 MB [id number]) Balance Tests Romberg Romberg LOB to the right and then the left, socks and no shoes PT-OP-G Mobility & Gait Start: 08/22/20 07:37 Freq: Status: Active Protocol: Document 08/23/20 12:13 MB (Rec: 08/23/20 14:14 MB [id number]) OP Gait Assessment Gait Gait Assistance Required: Independent Distance (Feet) 50 Able to Maintain Weight Bearing Status Yes During Gait Assistive Devices Assistive Device None Orthotic/Prosthetic Devices or Brace: No Gait Deviations General Gait Pattern Decreased Stride Length Factors Limiting Gait Function Factors Limiting Gait Function Decreased Strength,Pain,Poor Balance Comments Gait Comments Pt favors the left leg, looks down at the floor, presents with hesitancy with gait PT-OP-H Neuro Start: 08/22/20 07:37 Freq: Status: Active Protocol: Document 08/23/20 12:13 MB (Rec: 08/23/20 14:14 MB [id number]) Sensation Evaluation Comments Summary Comments Pt reports numbness right temporal area and eye brow Coordination Evaluation Upper Extremity Tests Right Finger to Nose Test Normal Performance Pronation/Supination Test Normal Performance Left Finger to Nose Test Normal Performance Pronation/Supination Test Minimal Impairment Comments Coordination Comments Right toe tapping over opposite foot normal x5 reps, rapid and accurate. Slow with left toe tapping over right foot and inaccurate, given for exercise for home: 10 reps every hour when sitting Vital Signs Pulse 1 Pulse at Rest (bpm) 77 Pulse Assessment Method Cuff Blood Pressure Sitting Blood Pressure (90/60-120/80 mmHg) 132/90 H Blood Pressure Source Automatic Cuff,Right Upper Extremity Comments Vital Signs Comments Doctor note for BP written under precautions, pt is in recommended range today PT-OP-K Range of Motion Start: 08/22/20 07:37 Freq: Status: Active Protocol: Document 08/23/20 12:13 MB (Rec: 08/23/20 14:14 MB [id number]) TMJ Range of Motion Comments Comments R eyebrow does not raise, can minimally lower. Pt presents with mild right jaw deviation and minimal dropping of left side of mouth with smile Toe Range of Motion Toes ROM Limitations Comments Decreased active left great toe extension compared to the right PT-OP-M Strength Start: 08/22/20 07:37 Freq: Status: Active Protocol: Document 08/23/20 12:13 MB (Rec: 08/23/20 14:14 MB [id number]) Shoulder Strength Shoulder Manual Muscle Testing Left Flexion 4 Good Abduction (C5) 5 Normal Adduction 5 Normal Right Flexion 4 Good Abduction (C5) 5 Normal Elbow/Forearm Strength Elbow and Forearm Manual Muscle Testing Left Flexion (C6) 4 Good Extension (C7) 5 Normal Right Flexion (C6) 4 Good Extension (C7) 5 Normal Wrist Strength Wrist Manual Muscle Testing Left Flexion (C7) 4 Good Extension (C6) 4 Good Right Flexion (C7) 5 Normal Extension (C6) 5 Normal Hip Strength Hip Manual Muscle Testing Left Flexion (L2) 3+ Fair+ Comments Pt sitting Right Flexion (L2) 4 Good Comments Pt sitting Knee Strength Knee Manual Muscle Testing Left Flexion (S2) 4 Good Extension (L3) 4 Good Comments Pt sitting Right Flexion (S2) 5 Normal Extension (L3) 5 Normal Comments Pt sitting Ankle/Foot Strength Ankle and Foot Manual Muscle Testing Left Dorsiflexion (L4) 5 Normal Right Dorsiflexion (L4) 5 Normal Toe Strength Toe Manual Muscle Testing Great Toe Extension 3+ Fair+ Right Great Toe Extension 4 Good PT-OP-O Vestibular Start: 08/22/20 07:37 Freq: Status: Active Protocol: Document 08/23/20 12:13 MB (Rec: 08/23/20 14:14 MB [id number]) Vestibular Assessment Visual Testing Smooth Pursuits Horizontal Normal Smooth Pursuits Vertical Normal Gaze Evoked Nystagmus With Fixation Negative Convergence Test R impaired Spontaneous Nystagmus Negative Comments Vestibular Comments Left pupil with decreased reactivity to pen light but very minimal PT-OP-Q Treatments Start: 08/22/20 07:37 Freq: Status: Active Protocol: Document 05/10/21 12:15 MB (Rec: 05/10/21 13:03 MB [id number]) Therapeutic Exercises Sitting Exercises Knee flexion with band Side bilateral Resistance Level 2 band Comments 10 reps alternating Hip flexion with band Side bilateral Resistance Level 2 band Comments 10 reps alternating Clam with band Side bilateral Resistance Level 2 band Comments Glute squeeze first and then 20 reps LAQ with AP Side bilateral Resistance Level 2 band Comments 5 reps each leg with 5 AP Ankle DF and eversion Side bilateral Resistance Level 2 band Comments 10 reps slowly and cues to keep knees still Alternating winking Comments Pt has improvement with this Toe tapping over opposite foot Comments Both sides 10 reps and slow even on right, dysmetria L Standing Exercises Wall slide with ball between knees Side bilateral Equipment Used Blue ball betwen knees Comments 10 slow reps and cues to keep weight on LLE Neuro Re-Education Treatment Balance Activities FGA exercises Comments Pt occ slides knuckle along wall and she requires close surperv for fast walking, walking with right and left and up and down head movements , backwards walking and walking with eyes closed, several reps all PT-OP-T Assessment and Plan Start: 08/22/20 07:37 Freq: Status: Active Protocol: Document 05/10/21 12:15 MB (Rec: 05/10/21 13:03 [id number]) Physical Therapy Assessment Rehab Potential Rehabilitation Potential Fair Evaluation Complexity Number of Personal Factors/Comorbidities 1-2 Number of Body Systems Impaired 3 Clinical Presentation at Evaluation Evolving Impairments Impairments Activity Tolerance,Balance, Edema,Gait,Integument,Pain, Posture,ROM,Sensation,Soft Tissue Mobility,Strength, Vestibular Other Impairments Personal factors: headache, decreased memory, slow speech. Body systems affected include musculoskeletal, neuromuscular, arterial. Her clinical presentation is not yet stable after brain surgery . Other Concerns Fall Risk Yes Goals 5 Loading Unit Operator Powder Charging Goal (LTG) Pt will gait train at least 1600 feet in 6 minutes without AD and no LOB by 06/14/2021. 03/29/21: Pt gait trains 1531 feet in 6 minutes, which is 3 feet further than when last tested in October 2020 LTG Duration 10 weeks 4 Loading Unit Operator Powder Charging Goal (LTG) Pt will perform progressive HEP with I including postural, flexibility, balance, LE strengthening, breathing, and VOR exercises to decrease symptoms and improve balance by 06/14/2021. 03/29/21: Pt is performing band exercises for legs, back project engineering director self-massage, breathing, walking the dog. LTG Duration 10 weeks 3 Loading Unit Operator Powder Charging Goal (LTG) Pt will present with improved left shoulder flexion, left hip flexion, left knee flexion and left great toe extension to 5/5 to improve balance by 06/14/21. 03/29/21: Left shoulder flexion is 3+/5; left hip flexion 4/5 ; left knee flexion 4/5; left great toe extension 4/5. LTG Duration 10 weeks 2 Long-Term Goal (LTG) Pt will report a 70% improvement in dizziness and headache symptoms to allow return to PLOF by 06/14/21. 03/29/21: Pt reports that in the recent weeks, her dizziness has gotten worse. It gets worse when she does not have PT for a long time and when she is playin with her down. Squatting too fast and sudden head movements are provocative. LTG Duration 10 weeks 1 Long-Term Goal (LTG) Pt will perform WNLs on FGA to decrease fall risk and improve balance by 06/14/21. 03/29/21: FGA score is 16/30, indicating increased risk for falling and added balance exercise for home today based on FGA activities and findings LTG Duration 10 weeks Assessment Summary Assessment Reviewed pt's strengthening exercises and balance activities today and she states she will con't at home. Ed pt in importance of going for walks by herself, too, for cardio and brain health. Physical Therapy Plan Frequency and Duration Frequency of Treatment 1x/Week Duration of Treatment 10 weeks Plan of Care Start Date 03/29/21 Plan of Care End Date 06/14/21 Therapeutic Interventions Therapeutic Interventions Balance Training,Canalithic Repositioning,Coordination Training,Gait Training,Home Exercise Program,Joint Mobilizations,Manual Therapy, Neuromuscular Re-education, Patient/Caregiver Education, Self-Care/Home Management, Sensory Integration,Soft Tissue Mobilization,Taping, Therapeutic Activities, Therapeutic Exercises, Vestibular Rehabilitation Modalities Cold Pack/Ice Massage,Electric Stimulation,Hot Packs, Ultrasound Next Visit Focus/Plan Next Note Type Discharge Summary
--- NOTE | 2021-06-02 09:14 | PT.OTN ---
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) Headache, unspecified (06/02/21) Weakness (06/02/21) Concussion with loss of consciousness of unspecified duration, subsequent encounter (06/02/21) Physical Therapy Treatment Note PT-OP-A Visit Information Start: 08/22/20 07:37 Freq: Status: Active Protocol: Document 06/02/21 08:17 MB (Rec: 06/02/21 09:14 MB [id number]) Out-Patient Physical Therapy Visit Information Visit Information Visit Type Treatment Note Visit Start Time 08:17 Visit Stop Time 09:00 Total Visit Minutes 43 Visit Number Precautions Precautions BP kept between 110-140/70-90, s/p right craniotomy, pt states that MoyaMoya surgeon cleared for PT to palpate all of her head PT-OP-B Current Condition Start: 08/22/20 07:37 Freq: Status: Active Protocol: Document 08/23/20 12:13 MB (Rec: 08/23/20 13:04 MB [id number]) Current Condition History of Current Condition Onset Date Surgery 07/27/20 Current Complaints Dizziness, light-headedness, ETIENNE and left leg pain and imbalance History of Current Condition 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 Pt had fall and concussion then as passed out. In PMH, pt writes back pain, superficial blood clot right LE, ulcers. Current complaints include: dizziness when active (walking and movements of neck), decreased processing words, headaches managed by medications, trouble opening right side of jaw post-op, neck pain and stiffness. Pt denies falls since surgery. Pt is wearing an ice hat. Pt reports pain right side of head, left jaw and left thigh. ETIENNE pain gets up to 5/10 with medication. Her neck pain is 4 /10. Left leg pain gets up to 7/10. She reports left leg pain as deep and shooting. Pt reports pain with walking on left leg. Pt reports that her left leg feels weak. The Cymbalta helps with nerve pain . Pt reports that her right eye brown does not yet move after surgery and the right side of her head is swollen. Mother states that pt still does not have any appetite. Treatment Goals Patient/Caregiver Goals Decrease pain, increase balance and leg strength. PT-OP-C Subjective Start: 08/22/20 07:37 Freq: Status: Active Protocol: Document 06/02/21 08:17 MB (Rec: 06/02/21 09:14 MB [id number]) OP-PT Subjective Patient Comments Patient Comments Pt states that the first part of the neuropsych exam was brutal and had to be stopped. It was one hour of interviewing and then two hours of testing. She asked for a break every 30 minutes. She completed the testing this week and the second part of the testing wasn't as brutal as the first. Everything is going about the same. She went to see Dr. Nam, her neurologist in [place]. She was started on Gabapentin for headaches. She is taking it at night and it is helping her sleep. She is doing 200 mg and will increase to 300 mg. Walking and walking dog is going well. She states that if she does not move her neck, she does better. The dizziness gets worse when she looks down and this is tricky with playing with the dog. Pt took her migraine medicine before the second day of testing and she felt better and then was knocked out after the assessment. PT-OP-D Balance Start: 08/22/20 07:37 Freq: Status: Active Protocol: Document 08/23/20 12:13 MB (Rec: 08/23/20 14:14 MB [id number]) Balance Tests Romberg Romberg LOB to the right and then the left, socks and no shoes PT-OP-G Mobility & Gait Start: 08/22/20 07:37 Freq: Status: Active Protocol: Document 08/23/20 12:13 MB (Rec: 08/23/20 14:14 MB [id number]) OP Gait Assessment Gait Gait Assistance Required: Independent Distance (Feet) 50 Able to Maintain Weight Bearing Status Yes During Gait Assistive Devices Assistive Device None Orthotic/Prosthetic Devices or Brace: No Gait Deviations General Gait Pattern Decreased Stride Length Factors Limiting Gait Function Factors Limiting Gait Function Decreased Strength,Pain,Poor Balance Comments Gait Comments Pt favors the left leg, looks down at the floor, presents with hesitancy with gait PT-OP-H Neuro Start: 08/22/20 07:37 Freq: Status: Active Protocol: Document 08/23/20 12:13 MB (Rec: 08/23/20 14:14 MB [id number]) Sensation Evaluation Comments Summary Comments Pt reports numbness right temporal area and eye brow Coordination Evaluation Upper Extremity Tests Right Finger to Nose Test Normal Performance Pronation/Supination Test Normal Performance Left Finger to Nose Test Normal Performance Pronation/Supination Test Minimal Impairment Comments Coordination Comments Right toe tapping over opposite foot normal x5 reps, rapid and accurate. Slow with left toe tapping over right foot and inaccurate, given for exercise for home: 10 reps every hour when sitting Vital Signs Pulse 1 Pulse at Rest (bpm) 77 Pulse Assessment Method Cuff Blood Pressure Sitting Blood Pressure (90/60-120/80 mmHg) 132/90 H Blood Pressure Source Automatic Cuff,Right Upper Extremity Comments Vital Signs Comments Doctor note for BP written under precautions, pt is in recommended range today PT-OP-K Range of Motion Start: 08/22/20 07:37 Freq: Status: Active Protocol: Document 08/23/20 12:13 MB (Rec: 08/23/20 14:14 MB [id number]) TMJ Range of Motion Comments Comments R eyebrow does not raise, can minimally lower. Pt presents with mild right jaw deviation and minimal dropping of left side of mouth with smile Toe Range of Motion Toes ROM Limitations Comments Decreased active left great toe extension compared to the right PT-OP-M Strength Start: 08/22/20 07:37 Freq: Status: Active Protocol: Document 08/23/20 12:13 MB (Rec: 08/23/20 14:14 MB [id number]) Shoulder Strength Shoulder Manual Muscle Testing Left Flexion 4 Good Abduction (C5) 5 Normal Adduction 5 Normal Right Flexion 4 Good Abduction (C5) 5 Normal Elbow/Forearm Strength Elbow and Forearm Manual Muscle Testing Left Flexion (C6) 4 Good Extension (C7) 5 Normal Right Flexion (C6) 4 Good Extension (C7) 5 Normal Wrist Strength Wrist Manual Muscle Testing Left Flexion (C7) 4 Good Extension (C6) 4 Good Right Flexion (C7) 5 Normal Extension (C6) 5 Normal Hip Strength Hip Manual Muscle Testing Left Flexion (L2) 3+ Fair+ Comments Pt sitting Right Flexion (L2) 4 Good Comments Pt sitting Knee Strength Knee Manual Muscle Testing Left Flexion (S2) 4 Good Extension (L3) 4 Good Comments Pt sitting Right Flexion (S2) 5 Normal Extension (L3) 5 Normal Comments Pt sitting Ankle/Foot Strength Ankle and Foot Manual Muscle Testing Left Dorsiflexion (L4) 5 Normal Right Dorsiflexion (L4) 5 Normal Toe Strength Toe Manual Muscle Testing Great Toe Extension 3+ Fair+ Right Great Toe Extension 4 Good PT-OP-O Vestibular Start: 08/22/20 07:37 Freq: Status: Active Protocol: Document 08/23/20 12:13 MB (Rec: 08/23/20 14:14 MB [id number]) Vestibular Assessment Visual Testing Smooth Pursuits Horizontal Normal Smooth Pursuits Vertical Normal Gaze Evoked Nystagmus With Fixation Negative Convergence Test R impaired Spontaneous Nystagmus Negative Comments Vestibular Comments Left pupil with decreased reactivity to pen light but very minimal PT-OP-Q Treatments Start: 08/22/20 07:37 Freq: Status: Active Protocol: Document 06/02/21 08:17 MB (Rec: 06/02/21 09:14 MB [id number]) Therapeutic Exercises Supine Exercises Pelvic realignment exercises Supine Exercise Name Cues for all exercises today Side bilateral Comments 5 rep, 3 sec hold all exercises Sitting Exercises Toe tapping over opposite foot Comments Several reps each side and to perform for exercise at home Other Exercises Reviewed HEP Comments Verbally reviewed exercises in progress notes today Gait Training Gait Activity [id number] Comments 06/02/21: Pt gait trains 1541 feet in 6 minutes, walking anti-clockwise. Twice, she rubs left hand on corner when turning to the left in the hallway. She has increased arms out and right arm swing and left LE does not move as well motor-viera compared to the right and requires effort to clear foot each time. Pt is wearing short wellingtons and this may cause exaggeration of lifting foot, requiring more effort which shows as such on the left. Gait pattern throughout treatment is similar, slightly unsteady today Neuro Re-Education Treatment Balance Activities FGA exercises Comments Pt occ slides knuckle along wall and she requires close surperv for fast walking, walking with right and left and up and down head movements , backwards walking and walking with eyes closed, several reps all. Did alternate exercises today and she is a little more imbalanced than previously checked. PT-OP-T Assessment and Plan Start: 08/22/20 07:37 Freq: Status: Active Protocol: Document 06/02/21 08:17 MB (Rec: 06/02/21 09:14 MB [id number]) Physical Therapy Assessment Rehab Potential Rehabilitation Potential Fair Evaluation Complexity Number of Personal Factors/Comorbidities 3 or More Number of Body Systems Impaired 4 or More Clinical Presentation at Evaluation Evolving Impairments Impairments Activity Tolerance,Balance, Edema,Gait,Integument,Pain, Posture,ROM,Sensation,Soft Tissue Mobility,Strength, Vestibular Other Impairments Personal factors: headache, decreased memory, slow speech. Body systems affected include musculoskeletal, neuromuscular, arterial, neurological. Other Concerns Fall Risk Yes Goals 5 Bath Mixer Goal (LTG) Pt will gait train at least 1600 feet in 6 minutes without AD and no LOB by 08/03/21. 06/02/21: Pt gait trains 1541 feet in 6 minutes, walking anti-clockwise. Twice, she rubs left hand on corner when turning to the left in the hallway. She has increased arms out and right arm swing and left LE does not move as well motor-viera compared to the right and requires effort to clear foot each time. Pt is wearing short wellingtons and this may cause exaggeration of lifting foot, requiring more effort which shows as such on the left. 03/29/21: Pt gait trains 1531 feet in 6 minutes, which is 3 feet further than when last tested in October 2020 LTG Duration 8 weeks 4 Bath Mixer Goal (LTG) Pt will perform progressive HEP with I including postural, flexibility, balance, LE strengthening, breathing, and VOR exercises to decrease symptoms and improve balance by 08/03/21. 06/02/21: Pt is performing band exercises for legs, back information broker self-massage, breathing, walking the dog. She would like to review pelvic realignment exercises. Pt has balance exercises in the hallway and pt did not progress to VOR exercises. LTG Duration 8 weeks 3 Bath Mixer Goal (LTG) Pt will present with improved left shoulder flexion, left hip flexion, left knee flexion and left great toe extension to 5/5 to improve balance by . 06/02/21: Left shoulder flexion is 4/5; left hip flexion 4/5; left knee flexion 4/5; left great toe extension 5/5. LTG Duration 8 weeks 2 Mcc Goal (LTG) Pt will report a 70% improvement in dizziness and headache symptoms to allow return to PLOF by 08/03/21. 03/29/21: Pt reports that in the recent weeks, her dizziness has gotten worse. It gets worse when she does not have PT for a long time and when she is playin with her down. Squatting too fast and sudden head movements are provocative. LTG Duration 8 weeks 1 Mcc Goal (LTG) Pt will perform WNLs on FGA to decrease fall risk and improve balance by 08/03/21. 06/02/21: Did FGA balance exercises to review for HEP before three week break in therapy for the end of the year, pt to con't at home 03/29/21: FGA score is 16/30, indicating increased risk for falling and added balance exercise for home today based on FGA activities and findings LTG Duration 8 weeks Assessment Summary Assessment Progress note today and not d/ c. Was only going to d/c d/t her visits for the year are up . She will definitely benefit from more PT to improve headache symptoms, dizziness, balance, gait and strength. She con't to progress towards gait, strength and HEP goals. Her balance is still difficult with FGA balance activities today and she will con't at home during the 3 week PT hiatus until the new year. Updated goals. Physical Therapy Plan Frequency and Duration Frequency of Treatment 1-2x/Week Duration of Treatment 8 weeks Plan of Care Start Date 06/02/21 Plan of Care End Date 08/03/21 Therapeutic Interventions Therapeutic Interventions Balance Training,Canalithic Repositioning,Coordination Training,Gait Training,Home Exercise Program,Joint Mobilizations,Manual Therapy, Neuromuscular Re-education, Patient/Caregiver Education, Self-Care/Home Management, Sensory Integration,Soft Tissue Mobilization,Taping, Therapeutic Activities, Therapeutic Exercises, Vestibular Rehabilitation Modalities Cold Pack/Ice Massage,Electric Stimulation,Hot Packs, Ultrasound Next Visit Focus/Plan Next Note Type Progress Note Next Visit Plan Review goals, update if needed , progress exercises, balance and gait, progress to upright bike and assess HR and associated symptoms
--- NOTE | 2021-06-02 09:14 | PT.OPPOC ---
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) Headache, unspecified (06/02/21) Weakness (06/02/21) Concussion with loss of consciousness of unspecified duration, subsequent encounter (06/02/21) Visit Care Team Role Provider Type Christen Figueroa PA-C Primary Care Provider Non-Staff Specialty: Family Practice Address: [address], [address], [place], [address] Email: TONE Riley Attending Provider Non-Staff Referring Provider Specialty: Nursing Address: [address] [place] [address] [address], [place], [address] Email: Plan Of Care PT-OP-T Assessment and Plan Start: 08/22/20 07:37 Freq: Status: Active Protocol: Document 06/02/21 08:17 MB (Rec: 06/02/21 09:14 MB [id number]) Physical Therapy Assessment Rehab Potential Rehabilitation Potential Fair Evaluation Complexity Number of Personal Factors/Comorbidities 3 or More Number of Body Systems Impaired 4 or More Clinical Presentation at Evaluation Evolving Impairments Impairments Activity Tolerance,Balance, Edema,Gait,Integument,Pain, Posture,ROM,Sensation,Soft Tissue Mobility,Strength, Vestibular Other Impairments Personal factors: headache, decreased memory, slow speech. Body systems affected include musculoskeletal, neuromuscular, arterial, neurological. Other Concerns Fall Risk Yes Goals 5 Department Store General Manager Goal (LTG) Pt will gait train at least 1600 feet in 6 minutes without AD and no LOB by 08/03/21. 06/02/21: Pt gait trains 1541 feet in 6 minutes, walking anti-clockwise. Twice, she rubs left hand on corner when turning to the left in the hallway. She has increased arms out and right arm swing and left LE does not move as well motor-viera compared to the right and requires effort to clear foot each time. Pt is wearing short wellingtons and this may cause exaggeration of lifting foot, requiring more effort which shows as such on the left. 03/29/21: Pt gait trains 1531 feet in 6 minutes, which is 3 feet further than when last tested in October 2020 LTG Duration 8 weeks 4 Usp Goal (LTG) Pt will perform progressive HEP with I including postural, flexibility, balance, LE strengthening, breathing, and VOR exercises to decrease symptoms and improve balance by 08/03/21. 06/02/21: Pt is performing band exercises for legs, back airline captain self-massage, breathing, walking the dog. She would like to review pelvic realignment exercises. Pt has balance exercises in the hallway and pt did not progress to VOR exercises. LTG Duration 8 weeks 3 Department Store General Manager Goal (LTG) Pt will present with improved left shoulder flexion, left hip flexion, left knee flexion and left great toe extension to 5/5 to improve balance by . 06/02/21: Left shoulder flexion is 4/5; left hip flexion 4/5; left knee flexion 4/5; left great toe extension 5/5. LTG Duration 8 weeks 2 Department Store General Manager Goal (LTG) Pt will report a 70% improvement in dizziness and headache symptoms to allow return to PLOF by 08/03/21. 03/29/21: Pt reports that in the recent weeks, her dizziness has gotten worse. It gets worse when she does not have PT for a long time and when she is playin with her down. Squatting too fast and sudden head movements are provocative. LTG Duration 8 weeks 1 Usp Goal (LTG) Pt will perform WNLs on FGA to decrease fall risk and improve balance by 08/03/21. 06/02/21: Did FGA balance exercises to review for HEP before three week break in therapy for the end of the year, pt to con't at home 03/29/21: FGA score is 16/30, indicating increased risk for falling and added balance exercise for home today based on FGA activities and findings LTG Duration 8 weeks Assessment Summary Assessment Progress note today and not d/ c. Was only going to d/c d/t her visits for the year are up . She will definitely benefit from more PT to improve headache symptoms, dizziness, balance, gait and strength. She con't to progress towards gait, strength and HEP goals. Her balance is still difficult with FGA balance activities today and she will con't at home during the 3 week PT hiatus until the new year. Updated goals. Physical Therapy Plan Frequency and Duration Frequency of Treatment 1-2x/Week Duration of Treatment 8 weeks Plan of Care Start Date 06/02/21 Plan of Care End Date 08/03/21 Therapeutic Interventions Therapeutic Interventions Balance Training,Canalithic Repositioning,Coordination Training,Gait Training,Home Exercise Program,Joint Mobilizations,Manual Therapy, Neuromuscular Re-education, Patient/Caregiver Education, Self-Care/Home Management, Sensory Integration,Soft Tissue Mobilization,Taping, Therapeutic Activities, Therapeutic Exercises, Vestibular Rehabilitation Modalities Cold Pack/Ice Massage,Electric Stimulation,Hot Packs, Ultrasound Next Visit Focus/Plan Next Note Type Progress Note Next Visit Plan Review goals, update if needed , progress exercises, balance and gait, progress to upright bike and assess HR and associated symptoms Plan of Care Dates Plan of Care Start Date 06/02/21 Plan of Care End Date 08/03/21 Electronically Signed by: Donita Cruz, PT 06/02/21 0914 Please Sign and Return: I have reviewed this Plan of Care and certify that the skilled therapy services above are required to meet the patient?s needs. Physician Signature Date Printed Name and Credentials Clinical Instructor Signature Printed Name and Credentials
--- NOTE | 2021-07-03 14:02 | PT.OTN ---
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) Headache, unspecified (07/03/21) Weakness (07/03/21) Concussion with loss of consciousness of unspecified duration, subsequent encounter (07/03/21) Physical Therapy Treatment Note PT-OP-A Visit Information Start: 08/22/20 07:37 Freq: Status: Active Protocol: Document 07/03/21 13:03 MB (Rec: 07/03/21 14:02 MB [id number]) Out-Patient Physical Therapy Visit Information Visit Information Visit Type Progress Note Visit Start Time 13:03 Visit Stop Time 14:03 Total Visit Minutes 60 Visit Number 07/24 Precautions Precautions BP kept between 110-140/70-90, s/p right craniotomy, pt states that MoyaMoya surgeon cleared for PT to palpate all of her head PT-OP-B Current Condition Start: 08/22/20 07:37 Freq: Status: Active Protocol: Document 08/23/20 12:13 MB (Rec: 08/23/20 13:04 MB [id number]) Current Condition History of Current Condition Onset Date Surgery 07/27/20 Current Complaints Dizziness, light-headedness, ETIENNE and left leg pain and imbalance History of Current Condition 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 Pt had fall and concussion then as passed out. In PMH, pt writes back pain, superficial blood clot right LE, ulcers. Current complaints include: dizziness when active (walking and movements of neck), decreased processing words, headaches managed by medications, trouble opening right side of jaw post-op, neck pain and stiffness. Pt denies falls since surgery. Pt is wearing an ice hat. Pt reports pain right side of head, left jaw and left thigh. ETIENNE pain gets up to 5/10 with medication. Her neck pain is 4 /10. Left leg pain gets up to 7/10. She reports left leg pain as deep and shooting. Pt reports pain with walking on left leg. Pt reports that her left leg feels weak. The Cymbalta helps with nerve pain . Pt reports that her right eye brown does not yet move after surgery and the right side of her head is swollen. Mother states that pt still does not have any appetite. Treatment Goals Patient/Caregiver Goals Decrease pain, increase balance and leg strength. PT-OP-C Subjective Start: 08/22/20 07:37 Freq: Status: Active Protocol: Document 07/03/21 13:03 MB (Rec: 07/03/21 14:02 MB [id number]) OP-PT Subjective Patient Comments Patient Comments This past week as really hard. The fatigue and headaches were bad. She was unsure if the snow storm and temp affected them. Walking in the snow was hard. It wiped her out. PT-OP-D Balance Start: 08/22/20 07:37 Freq: Status: Active Protocol: Document 08/23/20 12:13 MB (Rec: 08/23/20 14:14 MB [id number]) Balance Tests Romberg Romberg LOB to the right and then the left, socks and no shoes PT-OP-G Mobility & Gait Start: 08/22/20 07:37 Freq: Status: Active Protocol: Document 08/23/20 12:13 MB (Rec: 08/23/20 14:14 MB [id number]) OP Gait Assessment Gait Gait Assistance Required: Independent Distance (Feet) 50 Able to Maintain Weight Bearing Status Yes During Gait Assistive Devices Assistive Device None Orthotic/Prosthetic Devices or Brace: No Gait Deviations General Gait Pattern Decreased Stride Length Factors Limiting Gait Function Factors Limiting Gait Function Decreased Strength,Pain,Poor Balance Comments Gait Comments Pt favors the left leg, looks down at the floor, presents with hesitancy with gait PT-OP-H Neuro Start: 08/22/20 07:37 Freq: Status: Active Protocol: Document 08/23/20 12:13 MB (Rec: 08/23/20 14:14 MB [id number]) Sensation Evaluation Comments Summary Comments Pt reports numbness right temporal area and eye brow Coordination Evaluation Upper Extremity Tests Right Finger to Nose Test Normal Performance Pronation/Supination Test Normal Performance Left Finger to Nose Test Normal Performance Pronation/Supination Test Minimal Impairment Comments Coordination Comments Right toe tapping over opposite foot normal x5 reps, rapid and accurate. Slow with left toe tapping over right foot and inaccurate, given for exercise for home: 10 reps every hour when sitting Vital Signs Pulse 1 Pulse at Rest (bpm) 77 Pulse Assessment Method Cuff Blood Pressure Sitting Blood Pressure (90/60-120/80 mmHg) 132/90 H Blood Pressure Source Automatic Cuff,Right Upper Extremity Comments Vital Signs Comments Doctor note for BP written under precautions, pt is in recommended range today PT-OP-K Range of Motion Start: 08/22/20 07:37 Freq: Status: Active Protocol: Document 08/23/20 12:13 MB (Rec: 08/23/20 14:14 MB [id number]) TMJ Range of Motion Comments Comments R eyebrow does not raise, can minimally lower. Pt presents with mild right jaw deviation and minimal dropping of left side of mouth with smile Toe Range of Motion Toes ROM Limitations Comments Decreased active left great toe extension compared to the right PT-OP-M Strength Start: 08/22/20 07:37 Freq: Status: Active Protocol: Document 08/23/20 12:13 MB (Rec: 08/23/20 14:14 MB [id number]) Shoulder Strength Shoulder Manual Muscle Testing Left Flexion 4 Good Abduction (C5) 5 Normal Adduction 5 Normal Right Flexion 4 Good Abduction (C5) 5 Normal Elbow/Forearm Strength Elbow and Forearm Manual Muscle Testing Left Flexion (C6) 4 Good Extension (C7) 5 Normal Right Flexion (C6) 4 Good Extension (C7) 5 Normal Wrist Strength Wrist Manual Muscle Testing Left Flexion (C7) 4 Good Extension (C6) 4 Good Right Flexion (C7) 5 Normal Extension (C6) 5 Normal Hip Strength Hip Manual Muscle Testing Left Flexion (L2) 3+ Fair+ Comments Pt sitting Right Flexion (L2) 4 Good Comments Pt sitting Knee Strength Knee Manual Muscle Testing Left Flexion (S2) 4 Good Extension (L3) 4 Good Comments Pt sitting Right Flexion (S2) 5 Normal Extension (L3) 5 Normal Comments Pt sitting Ankle/Foot Strength Ankle and Foot Manual Muscle Testing Left Dorsiflexion (L4) 5 Normal Right Dorsiflexion (L4) 5 Normal Toe Strength Toe Manual Muscle Testing Great Toe Extension 3+ Fair+ Right Great Toe Extension 4 Good PT-OP-O Vestibular Start: 08/22/20 07:37 Freq: Status: Active Protocol: Document 08/23/20 12:13 MB (Rec: 08/23/20 14:14 MB [id number]) Vestibular Assessment Visual Testing Smooth Pursuits Horizontal Normal Smooth Pursuits Vertical Normal Gaze Evoked Nystagmus With Fixation Negative Convergence Test R impaired Spontaneous Nystagmus Negative Comments Vestibular Comments Left pupil with decreased reactivity to pen light but very minimal PT-OP-Q Treatments Start: 08/22/20 07:37 Freq: Status: Active Protocol: Document 07/03/21 13:03 MB (Rec: 07/03/21 14:02 MB [id number]) Therapeutic Exercises Supine Exercises Pelvic realignment exercises Supine Exercise Name Cues for all exercises today Side bilateral Comments 5 rep, 3 sec hold all exercises Sidelying Exercises Open book with pect stretch and rib breathing Side bilateral Comments Pt has not been peforming at home Sitting Exercises Knee flexion with band Side bilateral Resistance Level 2 band Comments 10 reps alternating Hip flexion with band Side bilateral Resistance Level 2 band Comments 10 reps alternating Clam with band Side bilateral Resistance Level 2 band Comments Glute squeeze first and then 20 reps LAQ with AP Side bilateral Resistance Level 2 band Comments 5 reps each leg with 5 AP Ankle DF and eversion Side bilateral Resistance Level 2 band Comments 10 reps slowly and cues to keep knees still Alternating winking Comments Mild improvement with this Toe tapping over opposite foot Resistance Level 2 band around thighs today Comments Several reps each side and to perform for exercise at home Gait Training Gait Activity [id number] Comments 07/03/21: Pt gait trains 1654 feet in 6 minutes with occ left index finger dragging along wall to assist with balance with anti-clockwise gait. Neuro Re-Education Treatment Balance Activities FGA Comments 07/03/21: FGA score is slightly improved with score 18/30 and pt reporting gait with head turns up and down and walking with eyes closed being the most symptomatic. Tandem gait is still not very possible. Turning at the end of the hallway required her to reach out to catch her balance. PT-OP-T Assessment and Plan Start: 08/22/20 07:37 Freq: Status: Active Protocol: Document 07/03/21 13:03 MB (Rec: 07/03/21 14:02 [id number]) Physical Therapy Assessment Rehab Potential Rehabilitation Potential Fair Evaluation Complexity Number of Personal Factors/Comorbidities 3 or More Number of Body Systems Impaired 4 or More Clinical Presentation at Evaluation Evolving Impairments Impairments Activity Tolerance,Balance, Edema,Gait,Integument,Pain, Posture,ROM,Sensation,Soft Tissue Mobility,Strength, Vestibular Other Impairments Personal factors: headache, decreased memory, slow speech. Body systems affected include musculoskeletal, neuromuscular, arterial, neurological. Other Concerns Fall Risk Yes Goals 5 Snf Goal (LTG) Pt will gait train at least 1650 feet in 6 minutes without AD and no LOB or dragging finger on the wall for steadying assist by 08/31/21. 07/03/21: Pt gait trains 1654 feet in 6 minutes with occ left index finger dragging along wall to assist with balance with anti-clockwise gait. 06/02/21: Pt gait trains 1541 feet in 6 minutes, walking anti-clockwise. Twice, she rubs left hand on corner when turning to the left in the hallway. She has increased arms out and right arm swing and left LE does not move as well motor-viera compared to the right and requires effort to clear foot each time. Pt is wearing short wellingtons and this may cause exaggeration of lifting foot, requiring more effort which shows as such on the left. 03/29/21: Pt gait trains 1531 feet in 6 minutes, which is 3 feet further than when last tested in October 2020 LTG Duration 8 weeks 4 Snf Goal (LTG) Pt will perform progressive HEP with I including postural, flexibility, balance, LE strengthening, breathing, and VOR exercises to decrease symptoms and improve balance by 08/31/21. 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 She is doing exercises 1-2x/wk. LTG Duration 8 weeks 3 Snf Goal (LTG) Pt will present with improved left shoulder flexion, left hip flexion, left knee flexion and left great toe extension to 5/5 to improve balance by . 07/03/21: Left shoulder flexion is 5/5, left hip flexion 4+/5, knee flexion 5/5, great toe extension 5/5. 06/02/21: Left shoulder flexion is 4/5; left hip flexion 4/5; left knee flexion 4/5; left great toe extension 5/5. LTG Duration 8 weeks 2 Retail Department Manager Goal (LTG) Pt will report a 70% improvement in dizziness and headache symptoms to allow return to PLOF by 08/31/21. 07/03/21: Pt reports flare-up of symptoms since the snow. 03/29/21: Pt reports that in the recent weeks, her dizziness has gotten worse. It gets worse when she does not have PT for a long time and when she is playin with her down. Squatting too fast and sudden head movements are provocative. LTG Duration 8 weeks 1 Retail Department Manager Goal (LTG) Pt will perform WNLs on FGA to decrease fall risk and improve balance by 08/31/21. 07/03/21: FGA score is slightly improved with score 18/30 and pt reporting gait with head turns up and down and walking with eyes closed being the most symptomatic. Tandem gait is still not very possible. Turning at the end of the hallway required her to reach out to catch her balance. LTG Duration 8 weeks Assessment Summary Assessment Pt con't to demonstrate small progress towards all goals including gait, balance and HEP. Her strength is better. Her headache and dizziness symptoms were not improved this week. She will con't to benefit from PT to improve balance, gait, strength and symptoms. Medical comorbidities of Jarrett Jarrett, brain surgery and concussion are challenging for progression. Physical Therapy Plan Frequency and Duration Frequency of Treatment 1-2x/Week Duration of Treatment 8 weeks Plan of Care Start Date 07/03/21 Plan of Care End Date 08/31/21 Therapeutic Interventions Therapeutic Interventions Balance Training,Canalithic Repositioning,Coordination Training,Gait Training,Home Exercise Program,Joint Mobilizations,Manual Therapy, Neuromuscular Re-education, Patient/Caregiver Education, Self-Care/Home Management, Sensory Integration,Soft Tissue Mobilization,Taping, Therapeutic Activities, Therapeutic Exercises, Vestibular Rehabilitation Modalities Cold Pack/Ice Massage,Electric Stimulation,Hot Packs, Ultrasound Next Visit Focus/Plan Next Note Type Treatment Note Next Visit Plan HRV and symptoms on bike test
--- NOTE | 2021-07-03 14:02 | PT.OPPOC ---
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) Headache, unspecified (07/03/21) Weakness (07/03/21) Concussion with loss of consciousness of unspecified duration, subsequent encounter (07/03/21) Visit Care Team Role Provider Type Christen Figueroa PA-C Primary Care Provider Non-Staff Specialty: Family Practice Address: [address], [address], [place], [address] Email: TONE Riley Attending Provider Non-Staff Referring Provider Specialty: Nursing Address: [address] [place] [address] [address], [place], [address] Email: Plan Of Care PT-OP-T Assessment and Plan Start: 08/22/20 07:37 Freq: Status: Active Protocol: Document 07/03/21 13:03 MB (Rec: 07/03/21 14:02 MB [id number]) Physical Therapy Assessment Rehab Potential Rehabilitation Potential Fair Evaluation Complexity Number of Personal Factors/Comorbidities 3 or More Number of Body Systems Impaired 4 or More Clinical Presentation at Evaluation Evolving Impairments Impairments Activity Tolerance,Balance, Edema,Gait,Integument,Pain, Posture,ROM,Sensation,Soft Tissue Mobility,Strength, Vestibular Other Impairments Personal factors: headache, decreased memory, slow speech. Body systems affected include musculoskeletal, neuromuscular, arterial, neurological. Other Concerns Fall Risk Yes Goals 5 Fdc Goal (LTG) Pt will gait train at least 1650 feet in 6 minutes without AD and no LOB or dragging finger on the wall for steadying assist by 08/31/21. 07/03/21: Pt gait trains 1654 feet in 6 minutes with occ left index finger dragging along wall to assist with balance with anti-clockwise gait. 06/02/21: Pt gait trains 1541 feet in 6 minutes, walking anti-clockwise. Twice, she rubs left hand on corner when turning to the left in the hallway. She has increased arms out and right arm swing and left LE does not move as well motor-viera compared to the right and requires effort to clear foot each time. Pt is wearing short wellingtons and this may cause exaggeration of lifting foot, requiring more effort which shows as such on the left. 03/29/21: Pt gait trains 1531 feet in 6 minutes, which is 3 feet further than when last tested in October 2020 LTG Duration 8 weeks 4 Statistical Technician Goal (LTG) Pt will perform progressive HEP with I including postural, flexibility, balance, LE strengthening, breathing, and VOR exercises to decrease symptoms and improve balance by 08/31/21. 07/03/21: Pt is performing band exercises for legs, back machining engineer self-massage, breathing, walking the dog, pelvic realignment exercises and balance exercises in the hallway. She is doing exercises 1-2x/wk. LTG Duration 8 weeks 3 Statistical Technician Goal (LTG) Pt will present with improved left shoulder flexion, left hip flexion, left knee flexion and left great toe extension to 5/5 to improve balance by . 07/03/21: Left shoulder flexion is 5/5, left hip flexion 4+/5, knee flexion 5/5, great toe extension 5/5. 06/02/21: Left shoulder flexion is 4/5; left hip flexion 4/5; left knee flexion 4/5; left great toe extension 5/5. LTG Duration 8 weeks 2 Fdc Goal (LTG) Pt will report a 70% improvement in dizziness and headache symptoms to allow return to PLOF by 08/31/21. 07/03/21: Pt reports flare-up of symptoms since the snow. 03/29/21: Pt reports that in the recent weeks, her dizziness has gotten worse. It gets worse when she does not have PT for a long time and when she is playin with her down. Squatting too fast and sudden head movements are provocative. LTG Duration 8 weeks 1 Fdc Goal (LTG) Pt will perform WNLs on FGA to decrease fall risk and improve balance by 08/31/21. 07/03/21: FGA score is slightly improved with score 18/30 and pt reporting gait with head turns up and down and walking with eyes closed being the most symptomatic. Tandem gait is still not very possible. Turning at the end of the hallway required her to reach out to catch her balance. LTG Duration 8 weeks Assessment Summary Assessment Pt con't to demonstrate small progress towards all goals including gait, balance and HEP. Her strength is better. Her headache and dizziness symptoms were not improved this week. She will con't to benefit from PT to improve balance, gait, strength and symptoms. Medical comorbidities of Jarrett Jarrett, brain surgery and concussion are challenging for progression. Physical Therapy Plan Frequency and Duration Frequency of Treatment 1-2x/Week Duration of Treatment 8 weeks Plan of Care Start Date 07/03/21 Plan of Care End Date 08/31/21 Therapeutic Interventions Therapeutic Interventions Balance Training,Canalithic Repositioning,Coordination Training,Gait Training,Home Exercise Program,Joint Mobilizations,Manual Therapy, Neuromuscular Re-education, Patient/Caregiver Education, Self-Care/Home Management, Sensory Integration,Soft Tissue Mobilization,Taping, Therapeutic Activities, Therapeutic Exercises, Vestibular Rehabilitation Modalities Cold Pack/Ice Massage,Electric Stimulation,Hot Packs, Ultrasound Next Visit Focus/Plan Next Note Type Treatment Note Next Visit Plan HRV and symptoms on bike test Plan of Care Dates Plan of Care Start Date 07/03/21 Plan of Care End Date 08/31/21 Electronically Signed by: Donita Cruz, PT 07/03/21 [id number] Please Sign and Return: I have reviewed this Plan of Care and certify that the skilled therapy services above are required to meet the patient?s needs. Physician Signature Date Printed Name and Credentials Clinical Instructor Signature Printed Name and Credentials
--- NOTE | 2021-07-12 15:12 | PT.OTN ---
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) Headache, unspecified (07/12/21) Weakness (07/12/21) Concussion with loss of consciousness of unspecified duration, subsequent encounter (07/12/21) Physical Therapy Treatment Note PT-OP-A Visit Information Start: 08/22/20 07:37 Freq: Status: Active Protocol: Document 07/12/21 12:15 MB (Rec: 07/12/21 13:02 MB [id number]) Out-Patient Physical Therapy Visit Information Visit Information Visit Type Treatment Note Visit Start Time 12:15 Visit Stop Time 13:00 Total Visit Minutes 45 Visit Number 08/24 Precautions Precautions BP kept between 110-140/70-90, s/p right craniotomy, pt states that [facility] surgeon cleared for PT to palpate all of her head PT-OP-B Current Condition Start: 08/22/20 07:37 Freq: Status: Active Protocol: Document 08/23/20 12:13 MB (Rec: 08/23/20 13:04 MB [id number]) Current Condition History of Current Condition Onset Date Surgery 07/27/20 Current Complaints Dizziness, light-headedness, ETIENNE and left leg pain and imbalance History of Current Condition 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 Pt had fall and concussion then as passed out. In PMH, pt writes back pain, superficial blood clot right LE, ulcers. Current complaints include: dizziness when active (walking and movements of neck), decreased processing words, headaches managed by medications, trouble opening right side of jaw post-op, neck pain and stiffness. Pt denies falls since surgery. Pt is wearing an ice hat. Pt reports pain right side of head, left jaw and left thigh. ETIENNE pain gets up to 5/10 with medication. Her neck pain is 4 /10. Left leg pain gets up to 7/10. She reports left leg pain as deep and shooting. Pt reports pain with walking on left leg. Pt reports that her left leg feels weak. The Cymbalta helps with nerve pain . Pt reports that her right eye brown does not yet move after surgery and the right side of her head is swollen. Mother states that pt still does not have any appetite. Treatment Goals Patient/Caregiver Goals Decrease pain, increase balance and leg strength. PT-OP-C Subjective Start: 08/22/20 07:37 Freq: Status: Active Protocol: Document 07/12/21 12:15 MB (Rec: 07/12/21 13:02 MB [id number]) OP-PT Subjective Patient Comments Patient Comments Pt is feeling well today and would like to do a modified HR test to find target exercise HR. PT-OP-D Balance Start: 08/22/20 07:37 Freq: Status: Active Protocol: Document 08/23/20 12:13 MB (Rec: 08/23/20 14:14 MB [id number]) Balance Tests Romberg Romberg LOB to the right and then the left, socks and no shoes PT-OP-G Mobility & Gait Start: 08/22/20 07:37 Freq: Status: Active Protocol: Document 08/23/20 12:13 MB (Rec: 08/23/20 14:14 MB [id number]) OP Gait Assessment Gait Gait Assistance Required: Independent Distance (Feet) 50 Able to Maintain Weight Bearing Status Yes During Gait Assistive Devices Assistive Device None Orthotic/Prosthetic Devices or Brace: No Gait Deviations General Gait Pattern Decreased Stride Length Factors Limiting Gait Function Factors Limiting Gait Function Decreased Strength,Pain,Poor Balance Comments Gait Comments Pt favors the left leg, looks down at the floor, presents with hesitancy with gait PT-OP-H Neuro Start: 08/22/20 07:37 Freq: Status: Active Protocol: Document 08/23/20 12:13 MB (Rec: 08/23/20 14:14 MB [id number]) Sensation Evaluation Comments Summary Comments Pt reports numbness right temporal area and eye brow Coordination Evaluation Upper Extremity Tests Right Finger to Nose Test Normal Performance Pronation/Supination Test Normal Performance Left Finger to Nose Test Normal Performance Pronation/Supination Test Minimal Impairment Comments Coordination Comments Right toe tapping over opposite foot normal x5 reps, rapid and accurate. Slow with left toe tapping over right foot and inaccurate, given for exercise for home: 10 reps every hour when sitting Vital Signs Pulse 1 Pulse at Rest (bpm) 77 Pulse Assessment Method Cuff Blood Pressure Sitting Blood Pressure (90/60-120/80 mmHg) 132/90 H Blood Pressure Source Automatic Cuff,Right Upper Extremity Comments Vital Signs Comments Doctor note for BP written under precautions, pt is in recommended range today PT-OP-K Range of Motion Start: 08/22/20 07:37 Freq: Status: Active Protocol: Document 08/23/20 12:13 MB (Rec: 08/23/20 14:14 MB [id number]) TMJ Range of Motion Comments Comments R eyebrow does not raise, can minimally lower. Pt presents with mild right jaw deviation and minimal dropping of left side of mouth with smile Toe Range of Motion Toes ROM Limitations Comments Decreased active left great toe extension compared to the right PT-OP-M Strength Start: 08/22/20 07:37 Freq: Status: Active Protocol: Document 08/23/20 12:13 MB (Rec: 08/23/20 14:14 MB [id number]) Shoulder Strength Shoulder Manual Muscle Testing Left Flexion 4 Good Abduction (C5) 5 Normal Adduction 5 Normal Right Flexion 4 Good Abduction (C5) 5 Normal Elbow/Forearm Strength Elbow and Forearm Manual Muscle Testing Left Flexion (C6) 4 Good Extension (C7) 5 Normal Right Flexion (C6) 4 Good Extension (C7) 5 Normal Wrist Strength Wrist Manual Muscle Testing Left Flexion (C7) 4 Good Extension (C6) 4 Good Right Flexion (C7) 5 Normal Extension (C6) 5 Normal Hip Strength Hip Manual Muscle Testing Left Flexion (L2) 3+ Fair+ Comments Pt sitting Right Flexion (L2) 4 Good Comments Pt sitting Knee Strength Knee Manual Muscle Testing Left Flexion (S2) 4 Good Extension (L3) 4 Good Comments Pt sitting Right Flexion (S2) 5 Normal Extension (L3) 5 Normal Comments Pt sitting Ankle/Foot Strength Ankle and Foot Manual Muscle Testing Left Dorsiflexion (L4) 5 Normal Right Dorsiflexion (L4) 5 Normal Toe Strength Toe Manual Muscle Testing Great Toe Extension 3+ Fair+ Right Great Toe Extension 4 Good PT-OP-O Vestibular Start: 08/22/20 07:37 Freq: Status: Active Protocol: Document 08/23/20 12:13 MB (Rec: 08/23/20 14:14 MB [id number]) Vestibular Assessment Visual Testing Smooth Pursuits Horizontal Normal Smooth Pursuits Vertical Normal Gaze Evoked Nystagmus With Fixation Negative Convergence Test R impaired Spontaneous Nystagmus Negative Comments Vestibular Comments Left pupil with decreased reactivity to pen light but very minimal PT-OP-Q Treatments Start: 08/22/20 07:37 Freq: Status: Active Protocol: Document 07/12/21 12:15 MB (Rec: 07/12/21 13:02 MB [id number]) Cardio Equipment Recumbent Bicycle Duration (Minutes) 25 Other See findings below Gait Training Gait Activity Gait in clinic Comments Gait for 13 minutes around clinic with cervical ice over shoulders to watch her ETIENNE symptoms after biking with HR reduction and possible venous dilation. Her headache did increase a little after HR comes down after exercise. Superv to I with gait in anti- clockwise direction around the gym PT-OP-T Assessment and Plan Start: 08/22/20 07:37 Freq: Status: Active Protocol: Document 07/12/21 12:15 MB (Rec: 07/12/21 13:02 MB [id number]) Physical Therapy Assessment Rehab Potential Rehabilitation Potential Fair Evaluation Complexity Number of Personal Factors/Comorbidities 3 or More Number of Body Systems Impaired 4 or More Clinical Presentation at Evaluation Evolving Impairments Impairments Activity Tolerance,Balance, Edema,Gait,Integument,Pain, Posture,ROM,Sensation,Soft Tissue Mobility,Strength, Vestibular Other Impairments Personal factors: headache, decreased memory, slow speech. Body systems affected include musculoskeletal, neuromuscular, arterial, neurological. Other Concerns Fall Risk Yes Goals 5 Senior Care Goal (LTG) Pt will gait train at least 1650 feet in 6 minutes without AD and no LOB or dragging finger on the wall for steadying assist by 08/31/21. 07/03/21: Pt gait trains 1654 feet in 6 minutes with occ left index finger dragging along wall to assist with balance with anti-clockwise gait. 06/02/21: Pt gait trains 1541 feet in 6 minutes, walking anti-clockwise. Twice, she rubs left hand on corner when turning to the left in the hallway. She has increased arms out and right arm swing and left LE does not move as well motor-viera compared to the right and requires effort to clear foot each time. Pt is wearing short wellingtons and this may cause exaggeration of lifting foot, requiring more effort which shows as such on the left. 03/29/21: Pt gait trains 1531 feet in 6 minutes, which is 3 feet further than when last tested in October 2020 LTG Duration 8 weeks 4 Student Specialist Goal (LTG) Pt will perform progressive HEP with I including postural, flexibility, balance, LE strengthening, breathing, and VOR exercises to decrease symptoms and improve balance by 08/31/21. 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 She is doing exercises 1-2x/wk. LTG Duration 8 weeks 3 Senior Care Goal (LTG) Pt will present with improved left shoulder flexion, left hip flexion, left knee flexion and left great toe extension to 5/5 to improve balance by . 07/03/21: Left shoulder flexion is 5/5, left hip flexion 4+/5, knee flexion 5/5, great toe extension 5/5. 06/02/21: Left shoulder flexion is 4/5; left hip flexion 4/5; left knee flexion 4/5; left great toe extension 5/5. LTG Duration 8 weeks 2 Senior Care Goal (LTG) Pt will report a 70% improvement in dizziness and headache symptoms to allow return to PLOF by 08/31/21. 07/03/21: Pt reports flare-up of symptoms since the snow. 03/29/21: Pt reports that in the recent weeks, her dizziness has gotten worse. It gets worse when she does not have PT for a long time and when she is playin with her down. Squatting too fast and sudden head movements are provocative. LTG Duration 8 weeks 1 Student Specialist Goal (LTG) Pt will perform WNLs on FGA to decrease fall risk and improve balance by 08/31/21. 07/03/21: FGA score is slightly improved with score 18/30 and pt reporting gait with head turns up and down and walking with eyes closed being the most symptomatic. Tandem gait is still not very possible. Turning at the end of the hallway required her to reach out to catch her balance. LTG Duration 8 weeks Assessment Summary Assessment Recumbent bike tody to determine concussion symptoms with increasing HR and to determine an optimal target HR . Pt has starting symptoms of foggy 5, nausea 2, ETIENNE 2, and dizzy 2. They increase to max foggy 5, nausea 4, ETIENNE 2 and dizzy 2. Test was stopped at resistance 20 and 16' of exercise with HR max 166 BPM and leveling at 163 BPM and stopping d/t left leg burning/ fatigue. Since her PCS symptoms did not raise to 3, pt can train at this HR-- Perceived Exertion 18. Did ask pt to note ETIENNE symptoms with vasodilation as HR decreased. HR dropped to 119 BPM after several more minutes of cool down. ETIENNE a little worse with cool down. BP in right UE after exercise: 130/89, 92 after about 25 minutes of biking. Walking with ice around neck after drinking water and cool down. Physical Therapy Plan Frequency and Duration Frequency of Treatment 1-2x/Week Duration of Treatment 8 weeks Plan of Care Start Date 07/03/21 Plan of Care End Date 08/31/21 Therapeutic Interventions Therapeutic Interventions Balance Training,Canalithic Repositioning,Coordination Training,Gait Training,Home Exercise Program,Joint Mobilizations,Manual Therapy, Neuromuscular Re-education, Patient/Caregiver Education, Self-Care/Home Management, Sensory Integration,Soft Tissue Mobilization,Taping, Therapeutic Activities, Therapeutic Exercises, Vestibular Rehabilitation Modalities Cold Pack/Ice Massage,Electric Stimulation,Hot Packs, Ultrasound Next Visit Focus/Plan Next Note Type Treatment Note
--- NOTE | 2021-07-19 13:05 | PT.OTN ---
Current Diagnoses Moyamoya disease (07/19/21) Headache, unspecified (07/19/21) Weakness (07/19/21) Concussion with loss of consciousness of unspecified duration, subsequent encounter (07/19/21) Physical Therapy Treatment Note PT-OP-A Visit Information Start: 08/22/20 07:37 Freq: Status: Active Protocol: Document 07/19/21 12:17 MB (Rec: 07/19/21 13:05 MB [id number]) Out-Patient Physical Therapy Visit Information Visit Information Visit Type Treatment Note Visit Start Time 12:17 Visit Stop Time 13:00 Total Visit Minutes 43 Visit Number 09/21 Precautions Precautions BP kept between 110-140/70-90, s/p right craniotomy, pt states that [facility] surgeon cleared for PT to palpate all of her head PT-OP-B Current Condition Start: 08/22/20 07:37 Freq: Status: Active Protocol: Document 08/23/20 12:13 MB (Rec: 08/23/20 13:04 MB [id number]) Current Condition History of Current Condition Onset Date Surgery 07/27/20 Current Complaints Dizziness, light-headedness, ETIENNE and left leg pain and imbalance History of Current Condition 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 Pt had fall and concussion then as passed out. In PMH, pt writes back pain, superficial blood clot right LE, ulcers. Current complaints include: dizziness when active (walking and movements of neck), decreased processing words, headaches managed by medications, trouble opening right side of jaw post-op, neck pain and stiffness. Pt denies falls since surgery. Pt is wearing an ice hat. Pt reports pain right side of head, left jaw and left thigh. ETIENNE pain gets up to 5/10 with medication. Her neck pain is 4 /10. Left leg pain gets up to 7/10. She reports left leg pain as deep and shooting. Pt reports pain with walking on left leg. Pt reports that her left leg feels weak. The Cymbalta helps with nerve pain . Pt reports that her right eye brown does not yet move after surgery and the right side of her head is swollen. Mother states that pt still does not have any appetite. Treatment Goals Patient/Caregiver Goals Decrease pain, increase balance and leg strength. PT-OP-C Subjective Start: 08/22/20 07:37 Freq: Status: Active Protocol: Document 07/19/21 12:17 MB (Rec: 07/19/21 13:05 MB [id number]) OP-PT Subjective Patient Comments Patient Comments Pt recovered well after napping after modified [place] Treadmill Test on the bike. Her left leg was toast. PT-OP-D Balance Start: 08/22/20 07:37 Freq: Status: Active Protocol: Document 08/23/20 12:13 MB (Rec: 08/23/20 14:14 MB [id number]) Balance Tests Romberg Romberg LOB to the right and then the left, socks and no shoes PT-OP-G Mobility & Gait Start: 08/22/20 07:37 Freq: Status: Active Protocol: Document 08/23/20 12:13 MB (Rec: 08/23/20 14:14 MB [id number]) OP Gait Assessment Gait Gait Assistance Required: Independent Distance (Feet) 50 Able to Maintain Weight Bearing Status Yes During Gait Assistive Devices Assistive Device None Orthotic/Prosthetic Devices or Brace: No Gait Deviations General Gait Pattern Decreased Stride Length Factors Limiting Gait Function Factors Limiting Gait Function Decreased Strength,Pain,Poor Balance Comments Gait Comments Pt favors the left leg, looks down at the floor, presents with hesitancy with gait PT-OP-H Neuro Start: 08/22/20 07:37 Freq: Status: Active Protocol: Document 08/23/20 12:13 MB (Rec: 08/23/20 14:14 MB [id number]) Sensation Evaluation Comments Summary Comments Pt reports numbness right temporal area and eye brow Coordination Evaluation Upper Extremity Tests Right Finger to Nose Test Normal Performance Pronation/Supination Test Normal Performance Left Finger to Nose Test Normal Performance Pronation/Supination Test Minimal Impairment Comments Coordination Comments Right toe tapping over opposite foot normal x5 reps, rapid and accurate. Slow with left toe tapping over right foot and inaccurate, given for exercise for home: 10 reps every hour when sitting Vital Signs Pulse 1 Pulse at Rest (bpm) 77 Pulse Assessment Method Cuff Blood Pressure Sitting Blood Pressure (90/60-120/80 mmHg) 132/90 H Blood Pressure Source Automatic Cuff,Right Upper Extremity Comments Vital Signs Comments Doctor note for BP written under precautions, pt is in recommended range today PT-OP-K Range of Motion Start: 08/22/20 07:37 Freq: Status: Active Protocol: Document 08/23/20 12:13 MB (Rec: 08/23/20 14:14 MB [id number]) TMJ Range of Motion Comments Comments R eyebrow does not raise, can minimally lower. Pt presents with mild right jaw deviation and minimal dropping of left side of mouth with smile Toe Range of Motion Toes ROM Limitations Comments Decreased active left great toe extension compared to the right PT-OP-M Strength Start: 08/22/20 07:37 Freq: Status: Active Protocol: Document 08/23/20 12:13 MB (Rec: 08/23/20 14:14 MB [id number]) Shoulder Strength Shoulder Manual Muscle Testing Left Flexion 4 Good Abduction (C5) 5 Normal Adduction 5 Normal Right Flexion 4 Good Abduction (C5) 5 Normal Elbow/Forearm Strength Elbow and Forearm Manual Muscle Testing Left Flexion (C6) 4 Good Extension (C7) 5 Normal Right Flexion (C6) 4 Good Extension (C7) 5 Normal Wrist Strength Wrist Manual Muscle Testing Left Flexion (C7) 4 Good Extension (C6) 4 Good Right Flexion (C7) 5 Normal Extension (C6) 5 Normal Hip Strength Hip Manual Muscle Testing Left Flexion (L2) 3+ Fair+ Comments Pt sitting Right Flexion (L2) 4 Good Comments Pt sitting Knee Strength Knee Manual Muscle Testing Left Flexion (S2) 4 Good Extension (L3) 4 Good Comments Pt sitting Right Flexion (S2) 5 Normal Extension (L3) 5 Normal Comments Pt sitting Ankle/Foot Strength Ankle and Foot Manual Muscle Testing Left Dorsiflexion (L4) 5 Normal Right Dorsiflexion (L4) 5 Normal Toe Strength Toe Manual Muscle Testing Great Toe Extension 3+ Fair+ Right Great Toe Extension 4 Good PT-OP-O Vestibular Start: 08/22/20 07:37 Freq: Status: Active Protocol: Document 08/23/20 12:13 MB (Rec: 08/23/20 14:14 MB [id number]) Vestibular Assessment Visual Testing Smooth Pursuits Horizontal Normal Smooth Pursuits Vertical Normal Gaze Evoked Nystagmus With Fixation Negative Convergence Test R impaired Spontaneous Nystagmus Negative Comments Vestibular Comments Left pupil with decreased reactivity to pen light but very minimal PT-OP-Q Treatments Start: 08/22/20 07:37 Freq: Status: Active Protocol: Document 07/19/21 12:17 MB (Rec: 07/19/21 13:05 MB [id number]) Manual Therapy Treatment Other Other Manual Treatments Pt agrees to Counterstrain to assess and treat fascial tension and she presents with tension in the following fascial systems: spinal vein extension, cartilage. PT treats stacks in these systems PT-OP-T Assessment and Plan Start: 08/22/20 07:37 Freq: Status: Active Protocol: Document 07/19/21 12:17 MB (Rec: 07/19/21 13:05 MB [id number]) Physical Therapy Assessment Rehab Potential Rehabilitation Potential Fair Evaluation Complexity Number of Personal Factors/Comorbidities 3 or More Number of Body Systems Impaired 4 or More Clinical Presentation at Evaluation Evolving Impairments Impairments Activity Tolerance,Balance, Edema,Gait,Integument,Pain, Posture,ROM,Sensation,Soft Tissue Mobility,Strength, Vestibular Other Impairments Personal factors: headache, decreased memory, slow speech. Body systems affected include musculoskeletal, neuromuscular, arterial, neurological. Other Concerns Fall Risk Yes Goals 5 Implementation Advisor Goal (LTG) Pt will gait train at least 1650 feet in 6 minutes without AD and no LOB or dragging finger on the wall for steadying assist by 08/31/21. 07/03/21: Pt gait trains 1654 feet in 6 minutes with occ left index finger dragging along wall to assist with balance with anti-clockwise gait. 06/02/21: Pt gait trains 1541 feet in 6 minutes, walking anti-clockwise. Twice, she rubs left hand on corner when turning to the left in the hallway. She has increased arms out and right arm swing and left LE does not move as well motor-viera compared to the right and requires effort to clear foot each time. Pt is wearing short wellingtons and this may cause exaggeration of lifting foot, requiring more effort which shows as such on the left. 03/29/21: Pt gait trains 1531 feet in 6 minutes, which is 3 feet further than when last tested in October 2020 LTG Duration 8 weeks 4 Implementation Advisor Goal (LTG) Pt will perform progressive HEP with I including postural, flexibility, balance, LE strengthening, breathing, and VOR exercises to decrease symptoms and improve balance by 08/31/21. 07/03/21: Pt is performing band exercises for legs, back dynamicist self-massage, breathing, walking the dog, pelvic realignment exercises and balance exercises in the hallway. She is doing exercises 1-2x/wk. LTG Duration 8 weeks 3 Implementation Advisor Goal (LTG) Pt will present with improved left shoulder flexion, left hip flexion, left knee flexion and left great toe extension to 5/5 to improve balance by . 07/03/21: Left shoulder flexion is 5/5, left hip flexion 4+/5, knee flexion 5/5, great toe extension 5/5. 06/02/21: Left shoulder flexion is 4/5; left hip flexion 4/5; left knee flexion 4/5; left great toe extension 5/5. LTG Duration 8 weeks 2 Mcc Goal (LTG) Pt will report a 70% improvement in dizziness and headache symptoms to allow return to PLOF by 08/31/21. 07/03/21: Pt reports flare-up of symptoms since the snow. 03/29/21: Pt reports that in the recent weeks, her dizziness has gotten worse. It gets worse when she does not have PT for a long time and when she is playin with her down. Squatting too fast and sudden head movements are provocative. LTG Duration 8 weeks 1 Implementation Advisor Goal (LTG) Pt will perform WNLs on FGA to decrease fall risk and improve balance by 08/31/21. 07/03/21: FGA score is slightly improved with score 18/30 and pt reporting gait with head turns up and down and walking with eyes closed being the most symptomatic. Tandem gait is still not very possible. Turning at the end of the hallway required her to reach out to catch her balance. LTG Duration 8 weeks Assessment Summary Assessment Counterstrain and grade I-II mobs cervical spine today. Pt feels better after treatment. Con't per plan Physical Therapy Plan Frequency and Duration Frequency of Treatment 1-2x/Week Duration of Treatment 8 weeks Plan of Care Start Date 07/03/21 Plan of Care End Date 08/31/21 Therapeutic Interventions Therapeutic Interventions Balance Training,Canalithic Repositioning,Coordination Training,Gait Training,Home Exercise Program,Joint Mobilizations,Manual Therapy, Neuromuscular Re-education, Patient/Caregiver Education, Self-Care/Home Management, Sensory Integration,Soft Tissue Mobilization,Taping, Therapeutic Activities, Therapeutic Exercises, Vestibular Rehabilitation Modalities Cold Pack/Ice Massage,Electric Stimulation,Hot Packs, Ultrasound Next Visit Focus/Plan Next Note Type Treatment Note Next Visit Plan Progress balance and gait, ongoing manual work
--- NOTE | 2021-07-26 12:58 | PT.OTN ---
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) Headache, unspecified (07/26/21) Weakness (07/26/21) Concussion with loss of consciousness of unspecified duration, subsequent encounter (07/26/21) Physical Therapy Treatment Note PT-OP-A Visit Information Start: 08/22/20 07:37 Freq: Status: Active Protocol: Document 07/26/21 12:15 MB (Rec: 07/26/21 12:57 MB [id number]) Out-Patient Physical Therapy Visit Information Visit Information Visit Type Treatment Note Visit Start Time 12:15 Visit Stop Time 12:57 Total Visit Minutes 42 Visit Number 10/22 Precautions Precautions BP kept between 110-140/70-90, s/p right craniotomy, pt states that MoyaMoya surgeon cleared for PT to palpate all of her head PT-OP-B Current Condition Start: 08/22/20 07:37 Freq: Status: Active Protocol: Document 08/23/20 12:13 MB (Rec: 08/23/20 13:04 MB [id number]) Current Condition History of Current Condition Onset Date Surgery 07/27/20 Current Complaints Dizziness, light-headedness, ETIENNE and left leg pain and imbalance History of Current Condition 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 Pt had fall and concussion then as passed out. In PMH, pt writes back pain, superficial blood clot right LE, ulcers. Current complaints include: dizziness when active (walking and movements of neck), decreased processing words, headaches managed by medications, trouble opening right side of jaw post-op, neck pain and stiffness. Pt denies falls since surgery. Pt is wearing an ice hat. Pt reports pain right side of head, left jaw and left thigh. ETIENNE pain gets up to 5/10 with medication. Her neck pain is 4 /10. Left leg pain gets up to 7/10. She reports left leg pain as deep and shooting. Pt reports pain with walking on left leg. Pt reports that her left leg feels weak. The Cymbalta helps with nerve pain . Pt reports that her right eye brown does not yet move after surgery and the right side of her head is swollen. Mother states that pt still does not have any appetite. Treatment Goals Patient/Caregiver Goals Decrease pain, increase balance and leg strength. PT-OP-C Subjective Start: 08/22/20 07:37 Freq: Status: Active Protocol: Document 07/26/21 12:15 MB (Rec: 07/26/21 12:57 MB [id number]) OP-PT Subjective Patient Comments Patient Comments Pt states that she has had a rough week. Her fatigue and headaches have been bad. She has been dog sitting for a week an a half and she is sitting for another two weeks. The first week, she couldn't sleep well. Being on other pets' routines has been harder . PT-OP-D Balance Start: 08/22/20 07:37 Freq: Status: Active Protocol: Document 08/23/20 12:13 MB (Rec: 08/23/20 14:14 MB [id number]) Balance Tests Romberg Romberg LOB to the right and then the left, socks and no shoes PT-OP-G Mobility & Gait Start: 08/22/20 07:37 Freq: Status: Active Protocol: Document 08/23/20 12:13 MB (Rec: 08/23/20 14:14 MB [id number]) OP Gait Assessment Gait Gait Assistance Required: Independent Distance (Feet) 50 Able to Maintain Weight Bearing Status Yes During Gait Assistive Devices Assistive Device None Orthotic/Prosthetic Devices or Brace: No Gait Deviations General Gait Pattern Decreased Stride Length Factors Limiting Gait Function Factors Limiting Gait Function Decreased Strength,Pain,Poor Balance Comments Gait Comments Pt favors the left leg, looks down at the floor, presents with hesitancy with gait PT-OP-H Neuro Start: 08/22/20 07:37 Freq: Status: Active Protocol: Document 08/23/20 12:13 MB (Rec: 08/23/20 14:14 MB [id number]) Sensation Evaluation Comments Summary Comments Pt reports numbness right temporal area and eye brow Coordination Evaluation Upper Extremity Tests Right Finger to Nose Test Normal Performance Pronation/Supination Test Normal Performance Left Finger to Nose Test Normal Performance Pronation/Supination Test Minimal Impairment Comments Coordination Comments Right toe tapping over opposite foot normal x5 reps, rapid and accurate. Slow with left toe tapping over right foot and inaccurate, given for exercise for home: 10 reps every hour when sitting Vital Signs Pulse 1 Pulse at Rest (bpm) 77 Pulse Assessment Method Cuff Blood Pressure Sitting Blood Pressure (90/60-120/80 mmHg) 132/90 H Blood Pressure Source Automatic Cuff,Right Upper Extremity Comments Vital Signs Comments Doctor note for BP written under precautions, pt is in recommended range today PT-OP-K Range of Motion Start: 08/22/20 07:37 Freq: Status: Active Protocol: Document 08/23/20 12:13 MB (Rec: 08/23/20 14:14 MB [id number]) TMJ Range of Motion Comments Comments R eyebrow does not raise, can minimally lower. Pt presents with mild right jaw deviation and minimal dropping of left side of mouth with smile Toe Range of Motion Toes ROM Limitations Comments Decreased active left great toe extension compared to the right PT-OP-M Strength Start: 08/22/20 07:37 Freq: Status: Active Protocol: Document 08/23/20 12:13 MB (Rec: 08/23/20 14:14 MB [id number]) Shoulder Strength Shoulder Manual Muscle Testing Left Flexion 4 Good Abduction (C5) 5 Normal Adduction 5 Normal Right Flexion 4 Good Abduction (C5) 5 Normal Elbow/Forearm Strength Elbow and Forearm Manual Muscle Testing Left Flexion (C6) 4 Good Extension (C7) 5 Normal Right Flexion (C6) 4 Good Extension (C7) 5 Normal Wrist Strength Wrist Manual Muscle Testing Left Flexion (C7) 4 Good Extension (C6) 4 Good Right Flexion (C7) 5 Normal Extension (C6) 5 Normal Hip Strength Hip Manual Muscle Testing Left Flexion (L2) 3+ Fair+ Comments Pt sitting Right Flexion (L2) 4 Good Comments Pt sitting Knee Strength Knee Manual Muscle Testing Left Flexion (S2) 4 Good Extension (L3) 4 Good Comments Pt sitting Right Flexion (S2) 5 Normal Extension (L3) 5 Normal Comments Pt sitting Ankle/Foot Strength Ankle and Foot Manual Muscle Testing Left Dorsiflexion (L4) 5 Normal Right Dorsiflexion (L4) 5 Normal Toe Strength Toe Manual Muscle Testing Great Toe Extension 3+ Fair+ Right Great Toe Extension 4 Good PT-OP-O Vestibular Start: 08/22/20 07:37 Freq: Status: Active Protocol: Document 08/23/20 12:13 MB (Rec: 08/23/20 14:14 MB [id number]) Vestibular Assessment Visual Testing Smooth Pursuits Horizontal Normal Smooth Pursuits Vertical Normal Gaze Evoked Nystagmus With Fixation Negative Convergence Test R impaired Spontaneous Nystagmus Negative Comments Vestibular Comments Left pupil with decreased reactivity to pen light but very minimal PT-OP-Q Treatments Start: 08/22/20 07:37 Freq: Status: Active Protocol: Document 07/26/21 12:15 MB (Rec: 07/26/21 12:57 MB [id number]) Manual Therapy Treatment Other Other Manual Treatments Pt agrees to Counterstrain to assess and treat fascial tension and she presents with tension in the following fascial systems: dura, sinuvertebrals, periosteal, cranial and sacral parasympathetics. PT treats stacks in these systems and her fascial mobility improves. Positional release upper cervical spine, gentle STM B SCM with left side more tight, gentle grade I-II PA cervical mobs PT-OP-T Assessment and Plan Start: 08/22/20 07:37 Freq: Status: Active Protocol: Document 07/26/21 12:15 MB (Rec: 07/26/21 12:57 MB [id number]) Physical Therapy Assessment Rehab Potential Rehabilitation Potential Fair Evaluation Complexity Number of Personal Factors/Comorbidities 3 or More Number of Body Systems Impaired 4 or More Clinical Presentation at Evaluation Evolving Impairments Impairments Activity Tolerance,Balance, Edema,Gait,Integument,Pain, Posture,ROM,Sensation,Soft Tissue Mobility,Strength, Vestibular Other Impairments Personal factors: headache, decreased memory, slow speech. Body systems affected include musculoskeletal, neuromuscular, arterial, neurological. Other Concerns Fall Risk Yes Goals 5 Mental Health Nurse Goal (LTG) Pt will gait train at least 1650 feet in 6 minutes without AD and no LOB or dragging finger on the wall for steadying assist by 08/31/21. 07/03/21: Pt gait trains 1654 feet in 6 minutes with occ left index finger dragging along wall to assist with balance with anti-clockwise gait. 06/02/21: Pt gait trains 1541 feet in 6 minutes, walking anti-clockwise. Twice, she rubs left hand on corner when turning to the left in the hallway. She has increased arms out and right arm swing and left LE does not move as well motor-viera compared to the right and requires effort to clear foot each time. Pt is wearing short wellingtons and this may cause exaggeration of lifting foot, requiring more effort which shows as such on the left. 03/29/21: Pt gait trains 1531 feet in 6 minutes, which is 3 feet further than when last tested in October 2020 LTG Duration 8 weeks 4 Mental Health Nurse Goal (LTG) Pt will perform progressive HEP with I including postural, flexibility, balance, LE strengthening, breathing, and VOR exercises to decrease symptoms and improve balance by 08/31/21. 07/03/21: Pt is performing band exercises for legs, back director translation self-massage, breathing, walking the dog, pelvic realignment exercises and balance exercises in the hallway. She is doing exercises 1-2x/wk. LTG Duration 8 weeks 3 Retirement Goal (LTG) Pt will present with improved left shoulder flexion, left hip flexion, left knee flexion and left great toe extension to 5/5 to improve balance by . 07/03/21: Left shoulder flexion is 5/5, left hip flexion 4+/5, knee flexion 5/5, great toe extension 5/5. 06/02/21: Left shoulder flexion is 4/5; left hip flexion 4/5; left knee flexion 4/5; left great toe extension 5/5. LTG Duration 8 weeks 2 Mental Health Nurse Goal (LTG) Pt will report a 70% improvement in dizziness and headache symptoms to allow return to PLOF by 08/31/21. 07/03/21: Pt reports flare-up of symptoms since the snow. 03/29/21: Pt reports that in the recent weeks, her dizziness has gotten worse. It gets worse when she does not have PT for a long time and when she is playin with her down. Squatting too fast and sudden head movements are provocative. LTG Duration 8 weeks 1 Retirement Goal (LTG) Pt will perform WNLs on FGA to decrease fall risk and improve balance by 08/31/21. 07/03/21: FGA score is slightly improved with score 18/30 and pt reporting gait with head turns up and down and walking with eyes closed being the most symptomatic. Tandem gait is still not very possible. Turning at the end of the hallway required her to reach out to catch her balance. LTG Duration 8 weeks Assessment Summary Assessment Counterstrain a final time today and pt's cranial and cervical fascial scans and cervical mobility is much better after treatment. Con't per plan below. Physical Therapy Plan Frequency and Duration Frequency of Treatment 1-2x/Week Duration of Treatment 8 weeks Plan of Care Start Date 07/03/21 Plan of Care End Date 08/31/21 Therapeutic Interventions Therapeutic Interventions Balance Training,Canalithic Repositioning,Coordination Training,Gait Training,Home Exercise Program,Joint Mobilizations,Manual Therapy, Neuromuscular Re-education, Patient/Caregiver Education, Self-Care/Home Management, Sensory Integration,Soft Tissue Mobilization,Taping, Therapeutic Activities, Therapeutic Exercises, Vestibular Rehabilitation Modalities Cold Pack/Ice Massage,Electric Stimulation,Hot Packs, Ultrasound Next Visit Focus/Plan Next Note Type Treatment Note Next Visit Plan Progress balance and gait, review HEP, ongoing manual work
--- NOTE | 2021-08-17 15:01 | PT.OTN ---
Current Diagnoses Moyamoya disease (08/17/21) Headache, unspecified (08/17/21) Weakness (08/17/21) Concussion with loss of consciousness of unspecified duration, subsequent encounter (08/17/21) Physical Therapy Treatment Note PT-OP-A Visit Information Start: 08/22/20 07:37 Freq: Status: Active Protocol: Document 08/17/21 14:55 [facility] (Rec: 08/17/21 15:01 [facility] [id number]) Out-Patient Physical Therapy Visit Information Visit Information Visit Type Treatment Note Visit Start Time 13:00 Visit Stop Time 13:42 Total Visit Minutes 42 Visit Number 11/21 Number of REGIONAL DIRECTOR OF FINANCE Visits 0 PT-OP-B Current Condition Start: 08/22/20 07:37 Freq: Status: Active Protocol: Document 08/23/20 12:13 MB (Rec: 08/23/20 13:04 MB [id number]) Current Condition History of Current Condition Onset Date Surgery 07/27/20 Current Complaints Dizziness, light-headedness, ETIENNE and left leg pain and imbalance History of Current Condition 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 Pt had fall and concussion then as passed out. In PMH, pt writes back pain, superficial blood clot right LE, ulcers. Current complaints include: dizziness when active (walking and movements of neck), decreased processing words, headaches managed by medications, trouble opening right side of jaw post-op, neck pain and stiffness. Pt denies falls since surgery. Pt is wearing an ice hat. Pt reports pain right side of head, left jaw and left thigh. ETIENNE pain gets up to 5/10 with medication. Her neck pain is 4 /10. Left leg pain gets up to 7/10. She reports left leg pain as deep and shooting. Pt reports pain with walking on left leg. Pt reports that her left leg feels weak. The Cymbalta helps with nerve pain . Pt reports that her right eye brown does not yet move after surgery and the right side of her head is swollen. Mother states that pt still does not have any appetite. Treatment Goals Patient/Caregiver Goals Decrease pain, increase balance and leg strength. PT-OP-C Subjective Start: 08/22/20 07:37 Freq: Status: Active Protocol: Document 08/17/21 14:55 [facility] (Rec: 08/17/21 15:01 [facility] [id number]) OP-PT Subjective Patient Comments Patient Comments Pt reports head feels heavy PT-OP-D Balance Start: 08/22/20 07:37 Freq: Status: Active Protocol: Document 08/23/20 12:13 MB (Rec: 08/23/20 14:14 MB [id number]) Balance Tests Romberg Romberg LOB to the right and then the left, socks and no shoes PT-OP-G Mobility & Gait Start: 08/22/20 07:37 Freq: Status: Active Protocol: Document 08/23/20 12:13 MB (Rec: 08/23/20 14:14 MB [id number]) OP Gait Assessment Gait Gait Assistance Required: Independent Distance (Feet) 50 Able to Maintain Weight Bearing Status Yes During Gait Assistive Devices Assistive Device None Orthotic/Prosthetic Devices or Brace: No Gait Deviations General Gait Pattern Decreased Stride Length Factors Limiting Gait Function Factors Limiting Gait Function Decreased Strength,Pain,Poor Balance Comments Gait Comments Pt favors the left leg, looks down at the floor, presents with hesitancy with gait PT-OP-H Neuro Start: 08/22/20 07:37 Freq: Status: Active Protocol: Document 08/23/20 12:13 MB (Rec: 08/23/20 14:14 MB [id number]) Sensation Evaluation Comments Summary Comments Pt reports numbness right temporal area and eye brow Coordination Evaluation Upper Extremity Tests Right Finger to Nose Test Normal Performance Pronation/Supination Test Normal Performance Left Finger to Nose Test Normal Performance Pronation/Supination Test Minimal Impairment Comments Coordination Comments Right toe tapping over opposite foot normal x5 reps, rapid and accurate. Slow with left toe tapping over right foot and inaccurate, given for exercise for home: 10 reps every hour when sitting Vital Signs Pulse 1 Pulse at Rest (bpm) 77 Pulse Assessment Method Cuff Blood Pressure Sitting Blood Pressure (90/60-120/80 mmHg) 132/90 H Blood Pressure Source Automatic Cuff,Right Upper Extremity Comments Vital Signs Comments Doctor note for BP written under precautions, pt is in recommended range today PT-OP-K Range of Motion Start: 08/22/20 07:37 Freq: Status: Active Protocol: Document 08/23/20 12:13 MB (Rec: 08/23/20 14:14 MB [id number]) TMJ Range of Motion Comments Comments R eyebrow does not raise, can minimally lower. Pt presents with mild right jaw deviation and minimal dropping of left side of mouth with smile Toe Range of Motion Toes ROM Limitations Comments Decreased active left great toe extension compared to the right PT-OP-M Strength Start: 08/22/20 07:37 Freq: Status: Active Protocol: Document 08/23/20 12:13 MB (Rec: 08/23/20 14:14 MB [id number]) Shoulder Strength Shoulder Manual Muscle Testing Left Flexion 4 Good Abduction (C5) 5 Normal Adduction 5 Normal Right Flexion 4 Good Abduction (C5) 5 Normal Elbow/Forearm Strength Elbow and Forearm Manual Muscle Testing Left Flexion (C6) 4 Good Extension (C7) 5 Normal Right Flexion (C6) 4 Good Extension (C7) 5 Normal Wrist Strength Wrist Manual Muscle Testing Left Flexion (C7) 4 Good Extension (C6) 4 Good Right Flexion (C7) 5 Normal Extension (C6) 5 Normal Hip Strength Hip Manual Muscle Testing Left Flexion (L2) 3+ Fair+ Comments Pt sitting Right Flexion (L2) 4 Good Comments Pt sitting Knee Strength Knee Manual Muscle Testing Left Flexion (S2) 4 Good Extension (L3) 4 Good Comments Pt sitting Right Flexion (S2) 5 Normal Extension (L3) 5 Normal Comments Pt sitting Ankle/Foot Strength Ankle and Foot Manual Muscle Testing Left Dorsiflexion (L4) 5 Normal Right Dorsiflexion (L4) 5 Normal Toe Strength Toe Manual Muscle Testing Great Toe Extension 3+ Fair+ Right Great Toe Extension 4 Good PT-OP-O Vestibular Start: 08/22/20 07:37 Freq: Status: Active Protocol: Document 08/23/20 12:13 MB (Rec: 08/23/20 14:14 [id number]) Vestibular Assessment Visual Testing Smooth Pursuits Horizontal Normal Smooth Pursuits Vertical Normal Gaze Evoked Nystagmus With Fixation Negative Convergence Test R impaired Spontaneous Nystagmus Negative Comments Vestibular Comments Left pupil with decreased reactivity to pen light but very minimal PT-OP-Q Treatments Start: 08/22/20 07:37 Freq: Status: Active Protocol: Document 08/17/21 14:55 [facility] (Rec: 08/17/21 15:01 [facility] [id number]) Manual Therapy Treatment Soft Tissue Mobilization cervical Body Location R>L SCM, scalenes, UT, SO Mobilization Type Rolling,Strumming,Sustained Pressure Intensity/Depth Moderate Body Position Hooklying cranial fascia Body Location R>L Mobilization Type Myofascial Release Intensity/Depth Superficial Body Position Hooklying Neuro Re-Education Treatment Balance Activities SLS Comments 1. SLS on firm ground B trials 2. SL taps to 8 in box fwd & side x10 ea B foam Surface blue foam Comments 1. staggered stance balance B trials 2. NBOS trials Self-Care/Home Management Treatment Education Other Education self hair pulland ear pull for cranial fasica release PT-OP-T Assessment and Plan Start: 08/22/20 07:37 Freq: Status: Active Protocol: Document 08/17/21 14:55 [facility] (Rec: 08/17/21 15:01 [facility] [id number]) Physical Therapy Assessment Goals 5 Staff Appraiser Goal (LTG) Pt will gait train at least 1650 feet in 6 minutes without AD and no LOB or dragging finger on the wall for steadying assist by 08/31/21. 07/03/21: Pt gait trains 1654 feet in 6 minutes with occ left index finger dragging along wall to assist with balance with anti-clockwise gait. 06/02/21: Pt gait trains 1541 feet in 6 minutes, walking anti-clockwise. Twice, she rubs left hand on corner when turning to the left in the hallway. She has increased arms out and right arm swing and left LE does not move as well motor-viera compared to the right and requires effort to clear foot each time. Pt is wearing short wellingtons and this may cause exaggeration of lifting foot, requiring more effort which shows as such on the left. 03/29/21: Pt gait trains 1531 feet in 6 minutes, which is 3 feet further than when last tested in October 2020 LTG Duration 8 weeks 4 Staff Appraiser Goal (LTG) Pt will perform progressive HEP with I including postural, flexibility, balance, LE strengthening, breathing, and VOR exercises to decrease symptoms and improve balance by 08/31/21. 07/03/21: Pt is performing band exercises for legs, back ophthalmic assistant self-massage, breathing, walking the dog, pelvic realignment exercises and balance exercises in the hallway. She is doing exercises 1-2x/wk. LTG Duration 8 weeks 3 Staff Appraiser Goal (LTG) Pt will present with improved left shoulder flexion, left hip flexion, left knee flexion and left great toe extension to 5/5 to improve balance by . 07/03/21: Left shoulder flexion is 5/5, left hip flexion 4+/5, knee flexion 5/5, great toe extension 5/5. 06/02/21: Left shoulder flexion is 4/5; left hip flexion 4/5; left knee flexion 4/5; left great toe extension 5/5. LTG Duration 8 weeks 2 Half-Way Goal (LTG) Pt will report a 70% improvement in dizziness and headache symptoms to allow return to PLOF by 08/31/21. 07/03/21: Pt reports flare-up of symptoms since the snow. 03/29/21: Pt reports that in the recent weeks, her dizziness has gotten worse. It gets worse when she does not have PT for a long time and when she is playin with her down. Squatting too fast and sudden head movements are provocative. LTG Duration 8 weeks 1 Staff Appraiser Goal (LTG) Pt will perform WNLs on FGA to decrease fall risk and improve balance by 08/31/21. 07/03/21: FGA score is slightly improved with score 18/30 and pt reporting gait with head turns up and down and walking with eyes closed being the most symptomatic. Tandem gait is still not very possible. Turning at the end of the hallway required her to reach out to catch her balance. LTG Duration 8 weeks Assessment Summary Assessment Pt reports relief in head and neck w/manual treatment. She had good core activiation w/ balance activities but would completely tip over at ankles. She had dec overall stability and once she started to lose her balance would just fall to the side and require either PT assist, grab for rail or steppage to catch balance. Physical Therapy Plan Frequency and Duration Frequency of Treatment 1-2x/Week Duration of Treatment 8 weeks Plan of Care Start Date 07/03/21 Plan of Care End Date 08/31/21 Next Visit Focus/Plan Next Note Type Treatment Note Next Visit Plan PNf LLE, balance work, assess HEP and adjust as needed
--- NOTE | 2021-08-30 18:29 | PT.OTN ---
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 Pt had fall and concussion then as passed out. In PMH, pt writes back pain, superficial blood clot right LE, ulcers. Current complaints include: dizziness when active (walking and movements of neck), decreased processing words, headaches managed by medications, trouble opening right side of jaw post-op, neck pain and stiffness. Pt denies falls since surgery. Pt is wearing an ice hat. Pt reports pain right side of head, left jaw and left thigh. ETIENNE pain gets up to 5/10 with medication. Her neck pain is 4 /10. Left leg pain gets up to 7/10. She reports left leg pain as deep and shooting. Pt reports pain with walking on left leg. Pt reports that her left leg feels weak. The Cymbalta helps with nerve pain . Pt reports that her right eye brown does not yet move after surgery and the right side of her head is swollen. Mother states that pt still does not have any appetite. Treatment Goals Patient/Caregiver Goals Decrease pain, increase balance and leg strength. PT-OP-C Subjective Start: 08/22/20 07:37 Freq: Status: Active Protocol: Document 08/30/21 14:38 [facility] (Rec: 08/30/21 18:29 [facility] [id number]) OP-PT Subjective Patient Comments Patient Comments Pt reports she slept after last session but she felt better from the session for the rest of the day which is not normal for her. PT-OP-D Balance Start: 08/22/20 07:37 Freq: Status: Active Protocol: Document 08/23/20 12:13 MB (Rec: 08/23/20 14:14 MB [id number]) Balance Tests Romberg Romberg LOB to the right and then the left, socks and no shoes PT-OP-E Functional Tests Start: 08/30/21 14:38 Freq: Status: Active Protocol: Document 08/30/21 14:38 [facility] (Rec: 08/30/21 18:29 [facility] [id number]) Functional Tests 6 Minute Walk Test Distance 1431ft Device Used none Functional Gait Assessment Score 17 PT-OP-G Mobility & Gait Start: 08/22/20 07:37 Freq: Status: Active Protocol: Document 08/23/20 12:13 MB (Rec: 08/23/20 14:14 MB [id number]) OP Gait Assessment Gait Gait Assistance Required: Independent Distance (Feet) 50 Able to Maintain Weight Bearing Status Yes During Gait Assistive Devices Assistive Device None Orthotic/Prosthetic Devices or Brace: No Gait Deviations General Gait Pattern Decreased Stride Length Factors Limiting Gait Function Factors Limiting Gait Function Decreased Strength,Pain,Poor Balance Comments Gait Comments Pt favors the left leg, looks down at the floor, presents with hesitancy with gait PT-OP-H Neuro Start: 08/22/20 07:37 Freq: Status: Active Protocol: Document 08/23/20 12:13 MB (Rec: 08/23/20 14:14 MB [id number]) Sensation Evaluation Comments Summary Comments Pt reports numbness right temporal area and eye brow Coordination Evaluation Upper Extremity Tests Right Finger to Nose Test Normal Performance Pronation/Supination Test Normal Performance Left Finger to Nose Test Normal Performance Pronation/Supination Test Minimal Impairment Comments Coordination Comments Right toe tapping over opposite foot normal x5 reps, rapid and accurate. Slow with left toe tapping over right foot and inaccurate, given for exercise for home: 10 reps every hour when sitting Vital Signs Pulse 1 Pulse at Rest (bpm) 77 Pulse Assessment Method Cuff Blood Pressure Sitting Blood Pressure (90/60-120/80 mmHg) 132/90 H Blood Pressure Source Automatic Cuff,Right Upper Extremity Comments Vital Signs Comments Doctor note for BP written under precautions, pt is in recommended range today PT-OP-K Range of Motion Start: 08/22/20 07:37 Freq: Status: Active Protocol: Document 08/23/20 12:13 MB (Rec: 08/23/20 14:14 MB [id number]) TMJ Range of Motion Comments Comments R eyebrow does not raise, can minimally lower. Pt presents with mild right jaw deviation and minimal dropping of left side of mouth with smile Toe Range of Motion Toes ROM Limitations Comments Decreased active left great toe extension compared to the right PT-OP-M Strength Start: 08/22/20 07:37 Freq: Status: Active Protocol: Document 08/30/21 14:38 [facility] (Rec: 08/30/21 18:29 [facility] [id number]) Hip Strength Hip Manual Muscle Testing Left Flexion (L2) 3+ Fair+ Extension (S1) 3 Fair Abduction 3 Fair External Rotation 3+ Fair+ Internal Rotation 3+ Fair+ Right Flexion (L2) 4+ Good+ Extension (S1) 3+ Fair+ Abduction 3+ Fair+ External Rotation 4- Good- Internal Rotation 4- Good- Ankle/Foot Strength Ankle and Foot Manual Muscle Testing Left Dorsiflexion (L4) 4+ Good+ Plantarflexion (S1) 5 Normal Comments PF tested seated Right Dorsiflexion (L4) 5 Normal Plantarflexion (S1) 5 Normal Toe Strength Toe Manual Muscle Testing Great Toe Extension 3+ Fair+ Comments L Right Great Toe Extension 5 Normal PT-OP-O Vestibular Start: 08/22/20 07:37 Freq: Status: Active Protocol: Document 08/23/20 12:13 MB (Rec: 08/23/20 14:14 MB [id number]) Vestibular Assessment Visual Testing Smooth Pursuits Horizontal Normal Smooth Pursuits Vertical Normal Gaze Evoked Nystagmus With Fixation Negative Convergence Test R impaired Spontaneous Nystagmus Negative Comments Vestibular Comments Left pupil with decreased reactivity to pen light but very minimal PT-OP-Q Treatments Start: 08/22/20 07:37 Freq: Status: Active Protocol: Document 08/30/21 14:38 [facility] (Rec: 08/30/21 18:29 [facility] [id number]) Therapeutic Exercises Sidelying Exercises hip abd Side bilateral Reps/Minutes 10 Other Exercises 6 min walk Other Exercise Name 1431ft Manual Therapy Treatment Soft Tissue Mobilization cranial fascia Body Location R>L Mobilization Type Myofascial Release Intensity/Depth Superficial Body Position Hooklying Comments into R forehead Neuro Re-Education Treatment Balance Activities FGA exercises Details FGA PT-OP-T Assessment and Plan Start: 08/22/20 07:37 Freq: Status: Active Protocol: Document 08/30/21 14:38 [facility] (Rec: 08/30/21 18:29 [facility] [id number]) Physical Therapy Assessment Goals 5 Skilled Nursing Goal (LTG) Pt will gait train at least 1650 feet in 6 minutes without AD and no LOB or dragging finger on the wall for steadying assist by 08/31/21. 07/03/21: Pt gait trains 1654 feet in 6 minutes with occ left index finger dragging along wall to assist with balance with anti-clockwise gait. 06/02/21: Pt gait trains 1541 feet in 6 minutes, walking anti-clockwise. Twice, she rubs left hand on corner when turning to the left in the hallway. She has increased arms out and right arm swing and left LE does not move as well motor-viera compared to the right and requires effort to clear foot each time. Pt is wearing short wellingtons and this may cause exaggeration of lifting foot, requiring more effort which shows as such on the left. 03/29/21: Pt gait trains 1531 feet in 6 minutes, which is 3 feet further than when last tested in October 202008/30-1430ft LTG Duration 11/30/21 4 Skilled Nursing Goal (LTG) Pt will perform progressive HEP with I including postural, flexibility, balance, LE strengthening, breathing, and VOR exercises to decrease symptoms and improve balance by 08/31/21. 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 She is doing exercises 1-2x/wk. 3-pt walking and doing exercises at home plan to update and progress program LTG Duration 8 weeks 3 Skilled Nursing Goal (LTG) Pt will present with improved left shoulder flexion, left hip flexion, left knee flexion and left great toe extension to 5/5 to improve balance by . 07/03/21: Left shoulder flexion is 5/5, left hip flexion 4+/5, knee flexion 5/5, great toe extension 5/5. 06/02/21: Left shoulder flexion is 4/5; left hip flexion 4/5; left knee flexion 4/5; left great toe extension 5/5. 08/30-still very limited LTG Duration 8 weeks 2 Resident Care Aide Goal (LTG) Pt will report a 70% improvement in dizziness and headache symptoms to allow return to PLOF by 08/31/21. 07/03/21: Pt reports flare-up of symptoms since the snow. 03/29/21: Pt reports that in the recent weeks, her dizziness has gotten worse. It gets worse when she does not have PT for a long time and when she is playin with her down. Squatting too fast and sudden head movements are provocative. 08/30-pt reports no big change but does feel better fro the rest of the day after last session LTG Duration 8 weeks 1 Skilled Nursing Goal (LTG) Pt will perform WNLs on FGA to decrease fall risk and improve balance by 08/31/21. 07/03/21: FGA score is slightly improved with score 18/30 and pt reporting gait with head turns up and down and walking with eyes closed being the most symptomatic. Tandem gait is still not very possible. Turning at the end of the hallway required her to reach out to catch her balance. 08/30- LTG Duration 11/30/21 Assessment Summary Assessment Pt has had very few visits since last POC, so she has not made a lot of progress. She needs a progressed HEP at this time to focus on posture, core and hip stability in order to improve her ability to do her typical active activties w/her dog w/less pain. She would benefit from cont PT to work on this. Physical Therapy Plan Frequency and Duration Frequency of Treatment 1x/Week Duration of Treatment 3 months Plan of Care Start Date 08/30/21 Plan of Care End Date 11/30/21 Therapeutic Interventions Therapeutic Interventions Balance Training,Canalithic Repositioning,Coordination Training,Gait Training,Home Exercise Program,Joint Mobilizations,Manual Therapy, Neuromuscular Re-education, Patient/Caregiver Education, Self-Care/Home Management, Sensory Integration,Soft Tissue Mobilization,Taping, Therapeutic Activities, Therapeutic Exercises, Vestibular Rehabilitation Modalities Cold Pack/Ice Massage,Electric Stimulation,Hot Packs, Ultrasound Next Visit Focus/Plan Next Note Type Treatment Note Next Visit Plan PNf LLE, balance work, make new HEP
--- NOTE | 2021-08-30 18:30 | PT.OPPOC ---
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) Headache, unspecified (08/30/21) Weakness (08/30/21) Concussion with loss of consciousness of unspecified duration, subsequent encounter (08/30/21) Visit Care Team Role Provider Type Christen Figueroa PA-C Primary Care Provider Non-Staff Specialty: Family Practice Address: [address], [address], [place], [address] Email: TONE Riley Attending Provider Non-Staff Referring Provider Specialty: Nursing Address: [address] [place] [address] [address], [place], [address] Email: Plan Of Care PT-OP-T Assessment and Plan Start: 08/22/20 07:37 Freq: Status: Active Protocol: Document 08/30/21 14:38 [facility] (Rec: 08/30/21 18:29 [facility] [id number]) Physical Therapy Assessment Goals 5 Jail Goal (LTG) Pt will gait train at least 1650 feet in 6 minutes without AD and no LOB or dragging finger on the wall for steadying assist by 08/31/21. 07/03/21: Pt gait trains 1654 feet in 6 minutes with occ left index finger dragging along wall to assist with balance with anti-clockwise gait. 06/02/21: Pt gait trains 1541 feet in 6 minutes, walking anti-clockwise. Twice, she rubs left hand on corner when turning to the left in the hallway. She has increased arms out and right arm swing and left LE does not move as well motor-viera compared to the right and requires effort to clear foot each time. Pt is wearing short wellingtons and this may cause exaggeration of lifting foot, requiring more effort which shows as such on the left. 03/29/21: Pt gait trains 1531 feet in 6 minutes, which is 3 feet further than when last tested in October 202008/30-143ft LTG Duration 11/30/21 4 Jail Goal (LTG) Pt will perform progressive HEP with I including postural, flexibility, balance, LE strengthening, breathing, and VOR exercises to decrease symptoms and improve balance by 08/31/21. 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 She is doing exercises 1-2x/wk. 2-pt walking and doing exercises at home plan to update and progress program LTG Duration 8 weeks 3 Jail Goal (LTG) Pt will present with improved left shoulder flexion, left hip flexion, left knee flexion and left great toe extension to 5/5 to improve balance by . 07/03/21: Left shoulder flexion is 5/5, left hip flexion 4+/5, knee flexion 5/5, great toe extension 5/5. 06/02/21: Left shoulder flexion is 4/5; left hip flexion 4/5; left knee flexion 4/5; left great toe extension 5/5. 08/30-still very limited LTG Duration 8 weeks 2 Jail Goal (LTG) Pt will report a 70% improvement in dizziness and headache symptoms to allow return to PLOF by 08/31/21. 07/03/21: Pt reports flare-up of symptoms since the snow. 03/29/21: Pt reports that in the recent weeks, her dizziness has gotten worse. It gets worse when she does not have PT for a long time and when she is playin with her down. Squatting too fast and sudden head movements are provocative. 08/30-pt reports no big change but does feel better fro the rest of the day after last session LTG Duration 8 weeks 1 Teaching Manager Goal (LTG) Pt will perform WNLs on FGA to decrease fall risk and improve balance by 08/31/21. 07/03/21: FGA score is slightly improved with score 18/30 and pt reporting gait with head turns up and down and walking with eyes closed being the most symptomatic. Tandem gait is still not very possible. Turning at the end of the hallway required her to reach out to catch her balance. 08/30- LTG Duration 11/30/21 Assessment Summary Assessment Pt has had very few visits since last POC, so she has not made a lot of progress. She needs a progressed HEP at this time to focus on posture, core and hip stability in order to improve her ability to do her typical active activties w/her dog w/less pain. She would benefit from cont PT to work on this. Physical Therapy Plan Frequency and Duration Frequency of Treatment 1x/Week Duration of Treatment 3 months Plan of Care Start Date 08/30/21 Plan of Care End Date 11/30/21 Therapeutic Interventions Therapeutic Interventions Balance Training,Canalithic Repositioning,Coordination Training,Gait Training,Home Exercise Program,Joint Mobilizations,Manual Therapy, Neuromuscular Re-education, Patient/Caregiver Education, Self-Care/Home Management, Sensory Integration,Soft Tissue Mobilization,Taping, Therapeutic Activities, Therapeutic Exercises, Vestibular Rehabilitation Modalities Cold Pack/Ice Massage,Electric Stimulation,Hot Packs, Ultrasound Next Visit Focus/Plan Next Note Type Treatment Note Next Visit Plan PNf LLE, balance work, make new HEP Plan of Care Dates Plan of Care Start Date 08/30/21 Plan of Care End Date 11/30/21 Electronically Signed by: Tanya Dhaliwal, PT 08/30/21 1071 Please Sign and Return: I have reviewed this Plan of Care and certify that the skilled therapy services above are required to meet the patient?s needs. Physician Signature Date Printed Name and Credentials Clinical Instructor Signature Printed Name and Credentials
--- NOTE | 2021-09-12 11:41 | PT.OTN ---
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) Headache, unspecified (09/12/21) Weakness (09/12/21) Concussion with loss of consciousness of unspecified duration, subsequent encounter (09/12/21) Physical Therapy Treatment Note PT-OP-A Visit Information Start: 08/22/20 07:37 Freq: Status: Active Protocol: Document 09/12/21 08:18 [facility] (Rec: 09/12/21 11:40 [facility] [id number]) Out-Patient Physical Therapy Visit Information Visit Information Visit Type Treatment Note Visit Start Time 08:19 Visit Stop Time 09:00 Total Visit Minutes 41 Visit Number 01/21 Number of PILOT INSTRUCTOR Visits 0 PT-OP-B Current Condition Start: 08/22/20 07:37 Freq: Status: Active Protocol: Document 08/23/20 12:13 MB (Rec: 08/23/20 13:04 MB [id number]) Current Condition History of Current Condition Onset Date Surgery 07/27/20 Current Complaints Dizziness, light-headedness, ETIENNE and left leg pain and imbalance History of Current Condition 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 Pt had fall and concussion then as passed out. In PMH, pt writes back pain, superficial blood clot right LE, ulcers. Current complaints include: dizziness when active (walking and movements of neck), decreased processing words, headaches managed by medications, trouble opening right side of jaw post-op, neck pain and stiffness. Pt denies falls since surgery. Pt is wearing an ice hat. Pt reports pain right side of head, left jaw and left thigh. ETIENNE pain gets up to 5/10 with medication. Her neck pain is 4 /10. Left leg pain gets up to 7/10. She reports left leg pain as deep and shooting. Pt reports pain with walking on left leg. Pt reports that her left leg feels weak. The Cymbalta helps with nerve pain . Pt reports that her right eye brown does not yet move after surgery and the right side of her head is swollen. Mother states that pt still does not have any appetite. Treatment Goals Patient/Caregiver Goals Decrease pain, increase balance and leg strength. PT-OP-C Subjective Start: 08/22/20 07:37 Freq: Status: Active Protocol: Document 09/12/21 08:18 [facility] (Rec: 09/12/21 11:40 [facility] [id number]) OP-PT Subjective Patient Comments Patient Comments Pt reports she does have underlying LBP also. Does feel uncoordinated PT-OP-D Balance Start: 08/22/20 07:37 Freq: Status: Active Protocol: Document 08/23/20 12:13 MB (Rec: 08/23/20 14:14 MB [id number]) Balance Tests Romberg Romberg LOB to the right and then the left, socks and no shoes PT-OP-E Functional Tests Start: 08/30/21 14:38 Freq: Status: Active Protocol: Document 08/30/21 14:38 [facility] (Rec: 08/30/21 18:29 [facility] [id number]) Functional Tests 6 Minute Walk Test Distance 1431ft Device Used none Functional Gait Assessment Score 17 PT-OP-G Mobility & Gait Start: 08/22/20 07:37 Freq: Status: Active Protocol: Document 08/23/20 12:13 MB (Rec: 08/23/20 14:14 MB [id number]) OP Gait Assessment Gait Gait Assistance Required: Independent Distance (Feet) 50 Able to Maintain Weight Bearing Status Yes During Gait Assistive Devices Assistive Device None Orthotic/Prosthetic Devices or Brace: No Gait Deviations General Gait Pattern Decreased Stride Length Factors Limiting Gait Function Factors Limiting Gait Function Decreased Strength,Pain,Poor Balance Comments Gait Comments Pt favors the left leg, looks down at the floor, presents with hesitancy with gait PT-OP-H Neuro Start: 08/22/20 07:37 Freq: Status: Active Protocol: Document 08/23/20 12:13 MB (Rec: 08/23/20 14:14 MB [id number]) Sensation Evaluation Comments Summary Comments Pt reports numbness right temporal area and eye brow Coordination Evaluation Upper Extremity Tests Right Finger to Nose Test Normal Performance Pronation/Supination Test Normal Performance Left Finger to Nose Test Normal Performance Pronation/Supination Test Minimal Impairment Comments Coordination Comments Right toe tapping over opposite foot normal x5 reps, rapid and accurate. Slow with left toe tapping over right foot and inaccurate, given for exercise for home: 10 reps every hour when sitting Vital Signs Pulse 1 Pulse at Rest (bpm) 77 Pulse Assessment Method Cuff Blood Pressure Sitting Blood Pressure (90/60-120/80 mmHg) 132/90 H Blood Pressure Source Automatic Cuff,Right Upper Extremity Comments Vital Signs Comments Doctor note for BP written under precautions, pt is in recommended range today PT-OP-K Range of Motion Start: 08/22/20 07:37 Freq: Status: Active Protocol: Document 08/23/20 12:13 MB (Rec: 08/23/20 14:14 MB [id number]) TMJ Range of Motion Comments Comments R eyebrow does not raise, can minimally lower. Pt presents with mild right jaw deviation and minimal dropping of left side of mouth with smile Toe Range of Motion Toes ROM Limitations Comments Decreased active left great toe extension compared to the right PT-OP-M Strength Start: 08/22/20 07:37 Freq: Status: Active Protocol: Document 08/30/21 14:38 [facility] (Rec: 08/30/21 18:29 [facility] [id number]) Hip Strength Hip Manual Muscle Testing Left Flexion (L2) 3+ Fair+ Extension (S1) 3 Fair Abduction 3 Fair External Rotation 3+ Fair+ Internal Rotation 3+ Fair+ Right Flexion (L2) 4+ Good+ Extension (S1) 3+ Fair+ Abduction 3+ Fair+ External Rotation 4- Good- Internal Rotation 4- Good- Ankle/Foot Strength Ankle and Foot Manual Muscle Testing Left Dorsiflexion (L4) 4+ Good+ Plantarflexion (S1) 5 Normal Comments PF tested seated Right Dorsiflexion (L4) 5 Normal Plantarflexion (S1) 5 Normal Toe Strength Toe Manual Muscle Testing Great Toe Extension 3+ Fair+ Comments L Right Great Toe Extension 5 Normal PT-OP-O Vestibular Start: 08/22/20 07:37 Freq: Status: Active Protocol: Document 08/23/20 12:13 MB (Rec: 08/23/20 14:14 MB [id number]) Vestibular Assessment Visual Testing Smooth Pursuits Horizontal Normal Smooth Pursuits Vertical Normal Gaze Evoked Nystagmus With Fixation Negative Convergence Test R impaired Spontaneous Nystagmus Negative Comments Vestibular Comments Left pupil with decreased reactivity to pen light but very minimal PT-OP-Q Treatments Start: 08/22/20 07:37 Freq: Status: Active Protocol: Document 09/12/21 08:18 [facility] (Rec: 09/12/21 11:40 [facility] [id number]) Gym Equipment Shuttle Balance BLUE CLIPS Comments fwd:WBOS & NBOS-PT pert w/WBOS Therapeutic Exercises Supine Exercises bridge Side bilateral Reps/Minutes 5sec x10 Sitting Exercises chin tuck Reps/Minutes 8 Standing Exercises march Standing Exercise Name alt Side bilateral Equipment Used 1 finger on rail Reps/Minutes 15 sit to stand Standing Exercise Name no hands w/controll Side bilateral Reps/Minutes 8 Other Exercises quadruped Other Exercise Name 1. alt UE flex 2. alt hip ext Side bilateral Reps/Minutes 10 ea Manual Therapy Treatment Soft Tissue Mobilization QL Body Location L Mobilization Type Rolling,Strumming Intensity/Depth Moderate Body Position Sidelying Comments w/PNF cervical Body Location SOR, UT, paraspinals Mobilization Type Rolling,Strumming,Sustained Pressure Intensity/Depth Moderate Body Position Hooklying Comments w/LTR Neuro Re-Education Treatment Balance Activities staggered stance Comments B trials Other Activities PNF Details L post depression pelvis Comments 1. rhythmic initiation 2. sustained holds progressed to w/LE pattern 3. COI of pelvis PT-OP-T Assessment and Plan Start: 08/22/20 07:37 Freq: Status: Active Protocol: Document 09/12/21 08:18 [facility] (Rec: 09/12/21 11:40 [facility] [id number]) Physical Therapy Assessment Goals 5 Imager Goal (LTG) Pt will gait train at least 1650 feet in 6 minutes without AD and no LOB or dragging finger on the wall for steadying assist by 08/31/21. 07/03/21: Pt gait trains 1654 feet in 6 minutes with occ left index finger dragging along wall to assist with balance with anti-clockwise gait. 06/02/21: Pt gait trains 1541 feet in 6 minutes, walking anti-clockwise. Twice, she rubs left hand on corner when turning to the left in the hallway. She has increased arms out and right arm swing and left LE does not move as well motor-viera compared to the right and requires effort to clear foot each time. Pt is wearing short wellingtons and this may cause exaggeration of lifting foot, requiring more effort which shows as such on the left. 03/29/21: Pt gait trains 1531 feet in 6 minutes, which is 3 feet further than when last tested in October 202008/30-1430ft LTG Duration 11/30/21 4 Fdc Goal (LTG) Pt will perform progressive HEP with I including postural, flexibility, balance, LE strengthening, breathing, and VOR exercises to decrease symptoms and improve balance by 08/31/21. 07/03/21: Pt is performing band exercises for legs, back pull socket assembler self-massage, breathing, walking the dog, pelvic realignment exercises and balance exercises in the hallway. She is doing exercises 1-2x/wk. 2-pt walking and doing exercises at home plan to update and progress program LTG Duration 8 weeks 3 Imager Goal (LTG) Pt will present with improved left shoulder flexion, left hip flexion, left knee flexion and left great toe extension to 5/5 to improve balance by . 07/03/21: Left shoulder flexion is 5/5, left hip flexion 4+/5, knee flexion 5/5, great toe extension 5/5. 06/02/21: Left shoulder flexion is 4/5; left hip flexion 4/5; left knee flexion 4/5; left great toe extension 5/5. 08/30-still very limited LTG Duration 8 weeks 2 Fdc Goal (LTG) Pt will report a 70% improvement in dizziness and headache symptoms to allow return to PLOF by 08/31/21. 07/03/21: Pt reports flare-up of symptoms since the snow. 03/29/21: Pt reports that in the recent weeks, her dizziness has gotten worse. It gets worse when she does not have PT for a long time and when she is playin with her down. Squatting too fast and sudden head movements are provocative. 08/30-pt reports no big change but does feel better fro the rest of the day after last session LTG Duration 8 weeks 1 Fdc Goal (LTG) Pt will perform WNLs on FGA to decrease fall risk and improve balance by 08/31/21. 07/03/21: FGA score is slightly improved with score 18/30 and pt reporting gait with head turns up and down and walking with eyes closed being the most symptomatic. Tandem gait is still not very possible. Turning at the end of the hallway required her to reach out to catch her balance. 08/30- LTG Duration 11/30/21 Assessment Summary Assessment Pt did well with HEP exercises w/cueing for safety at home and for core engagement. Pt encouraged to cont to work on her posture. She has fwd head which likely inc neck and head pain.S he did well with PNF today but it was a signfiicant challenge. She reprots improved neck pain after session. Physical Therapy Plan Frequency and Duration Frequency of Treatment 1x/Week Duration of Treatment 3 months Plan of Care Start Date 08/30/21 Plan of Care End Date 11/30/21 Next Visit Focus/Plan Next Note Type Treatment Note Next Visit Plan review HEP, PNF LLE further and progress into mass flex patterns, manual to dec pain
--- NOTE | 2021-09-27 18:32 | PT.OTN ---
Current Diagnoses Moyamoya disease (09/27/21) Headache, unspecified (09/27/21) Weakness (09/27/21) Concussion with loss of consciousness of unspecified duration, subsequent encounter (09/27/21) Physical Therapy Treatment Note PT-OP-A Visit Information Start: 08/22/20 07:37 Freq: Status: Active Protocol: Document 09/27/21 14:35 [facility] (Rec: 09/27/21 18:32 [facility] [id number]) Out-Patient Physical Therapy Visit Information Visit Information Visit Type Treatment Note Visit Start Time 14:35 Visit Stop Time 15:15 Total Visit Minutes 40 Visit Number 02/21 Number of PREPARED FOODS SERVICE TEAM MEMBER Visits 0 PT-OP-B Current Condition Start: 08/22/20 07:37 Freq: Status: Active Protocol: Document 08/23/20 12:13 MB (Rec: 08/23/20 13:04 MB [id number]) Current Condition History of Current Condition Onset Date Surgery 07/27/20 Current Complaints Dizziness, light-headedness, ETIENNE and left leg pain and imbalance History of Current Condition 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 Pt had fall and concussion then as passed out. In PMH, pt writes back pain, superficial blood clot right LE, ulcers. Current complaints include: dizziness when active (walking and movements of neck), decreased processing words, headaches managed by medications, trouble opening right side of jaw post-op, neck pain and stiffness. Pt denies falls since surgery. Pt is wearing an ice hat. Pt reports pain right side of head, left jaw and left thigh. ETIENNE pain gets up to 5/10 with medication. Her neck pain is 4 /10. Left leg pain gets up to 7/10. She reports left leg pain as deep and shooting. Pt reports pain with walking on left leg. Pt reports that her left leg feels weak. The Cymbalta helps with nerve pain . Pt reports that her right eye brown does not yet move after surgery and the right side of her head is swollen. Mother states that pt still does not have any appetite. Treatment Goals Patient/Caregiver Goals Decrease pain, increase balance and leg strength. PT-OP-C Subjective Start: 08/22/20 07:37 Freq: Status: Active Protocol: Document 09/27/21 14:35 [facility] (Rec: 09/27/21 18:32 [facility] [id number]) OP-PT Subjective Patient Comments Patient Comments Pt reports head has felt heavy PT-OP-D Balance Start: 08/22/20 07:37 Freq: Status: Active Protocol: Document 08/23/20 12:13 MB (Rec: 08/23/20 14:14 MB [id number]) Balance Tests Romberg Romberg LOB to the right and then the left, socks and no shoes PT-OP-E Functional Tests Start: 08/30/21 14:38 Freq: Status: Active Protocol: Document 08/30/21 14:38 [facility] (Rec: 08/30/21 18:29 [facility] [id number]) Functional Tests 6 Minute Walk Test Distance 1431ft Device Used none Functional Gait Assessment Score 17 PT-OP-G Mobility & Gait Start: 08/22/20 07:37 Freq: Status: Active Protocol: Document 08/23/20 12:13 MB (Rec: 08/23/20 14:14 MB [id number]) OP Gait Assessment Gait Gait Assistance Required: Independent Distance (Feet) 50 Able to Maintain Weight Bearing Status Yes During Gait Assistive Devices Assistive Device None Orthotic/Prosthetic Devices or Brace: No Gait Deviations General Gait Pattern Decreased Stride Length Factors Limiting Gait Function Factors Limiting Gait Function Decreased Strength,Pain,Poor Balance Comments Gait Comments Pt favors the left leg, looks down at the floor, presents with hesitancy with gait PT-OP-H Neuro Start: 08/22/20 07:37 Freq: Status: Active Protocol: Document 08/23/20 12:13 MB (Rec: 08/23/20 14:14 MB [id number]) Sensation Evaluation Comments Summary Comments Pt reports numbness right temporal area and eye brow Coordination Evaluation Upper Extremity Tests Right Finger to Nose Test Normal Performance Pronation/Supination Test Normal Performance Left Finger to Nose Test Normal Performance Pronation/Supination Test Minimal Impairment Comments Coordination Comments Right toe tapping over opposite foot normal x5 reps, rapid and accurate. Slow with left toe tapping over right foot and inaccurate, given for exercise for home: 10 reps every hour when sitting Vital Signs Pulse 1 Pulse at Rest (bpm) 77 Pulse Assessment Method Cuff Blood Pressure Sitting Blood Pressure (90/60-120/80 mmHg) 132/90 H Blood Pressure Source Automatic Cuff,Right Upper Extremity Comments Vital Signs Comments Doctor note for BP written under precautions, pt is in recommended range today PT-OP-K Range of Motion Start: 08/22/20 07:37 Freq: Status: Active Protocol: Document 08/23/20 12:13 MB (Rec: 08/23/20 14:14 MB [id number]) TMJ Range of Motion Comments Comments R eyebrow does not raise, can minimally lower. Pt presents with mild right jaw deviation and minimal dropping of left side of mouth with smile Toe Range of Motion Toes ROM Limitations Comments Decreased active left great toe extension compared to the right PT-OP-M Strength Start: 08/22/20 07:37 Freq: Status: Active Protocol: Document 08/30/21 14:38 [facility] (Rec: 08/30/21 18:29 [facility] [id number]) Hip Strength Hip Manual Muscle Testing Left Flexion (L2) 3+ Fair+ Extension (S1) 3 Fair Abduction 3 Fair External Rotation 3+ Fair+ Internal Rotation 3+ Fair+ Right Flexion (L2) 4+ Good+ Extension (S1) 3+ Fair+ Abduction 3+ Fair+ External Rotation 4- Good- Internal Rotation 4- Good- Ankle/Foot Strength Ankle and Foot Manual Muscle Testing Left Dorsiflexion (L4) 4+ Good+ Plantarflexion (S1) 5 Normal Comments PF tested seated Right Dorsiflexion (L4) 5 Normal Plantarflexion (S1) 5 Normal Toe Strength Toe Manual Muscle Testing Great Toe Extension 3+ Fair+ Comments L Right Great Toe Extension 5 Normal PT-OP-O Vestibular Start: 08/22/20 07:37 Freq: Status: Active Protocol: Document 08/23/20 12:13 MB (Rec: 08/23/20 14:14 MB [id number]) Vestibular Assessment Visual Testing Smooth Pursuits Horizontal Normal Smooth Pursuits Vertical Normal Gaze Evoked Nystagmus With Fixation Negative Convergence Test R impaired Spontaneous Nystagmus Negative Comments Vestibular Comments Left pupil with decreased reactivity to pen light but very minimal PT-OP-Q Treatments Start: 08/22/20 07:37 Freq: Status: Active Protocol: Document 09/27/21 14:35 [facility] (Rec: 09/27/21 18:32 [facility] [id number]) Gym Equipment Therapeutic Ball seated Ball Size/Color green Body Position seated Comments 1. marches w/core and posture cues x20 B 2. kicks w/tracie nd posture cues x20 B 3. sit backs w/PT holding legs and cues for chin tuck and neutral spine x10 Manual Therapy Treatment Soft Tissue Mobilization cervical Body Location SOR, UT, paraspinals, scalenes Mobilization Type Rolling,Strumming,Sustained Pressure Intensity/Depth Moderate Body Position Hooklying Comments wchin tuck Joint Mobilizations cranial Joint mastoid Direction AP R Grade II cervical Comments 1. C1 &2 grade 1 AP 2.C4 Grade 2 AP R Neuro Re-Education Treatment Balance Activities bosu Comments 1. step ups fwd x10 B 2. lat step up and to side 3. standing balance x2 min hurdles Comments fwd over 6 x6 staggered stance Comments B tandem stance FGA exercises Details stop/go command Reps/Duration 50ft Other Activities PNF Comments ant elevation L pelvis w/ sustained hold w/flex add, ER< DF pattern progressed to COI of LE pattern w/ant elevation sustained PT-OP-T Assessment and Plan Start: 08/22/20 07:37 Freq: Status: Active Protocol: Document 09/27/21 14:35 [facility] (Rec: 09/27/21 18:32 [facility] [id number]) Physical Therapy Assessment Goals 5 Nursing Home Goal (LTG) Pt will gait train at least 1650 feet in 6 minutes without AD and no LOB or dragging finger on the wall for steadying assist by 08/31/21. 07/03/21: Pt gait trains 1654 feet in 6 minutes with occ left index finger dragging along wall to assist with balance with anti-clockwise gait. 06/02/21: Pt gait trains 1541 feet in 6 minutes, walking anti-clockwise. Twice, she rubs left hand on corner when turning to the left in the hallway. She has increased arms out and right arm swing and left LE does not move as well motor-viera compared to the right and requires effort to clear foot each time. Pt is wearing short wellingtons and this may cause exaggeration of lifting foot, requiring more effort which shows as such on the left. 03/29/21: Pt gait trains 1531 feet in 6 minutes, which is 3 feet further than when last tested in October 202008/30-143 LTG Duration 11/30/21 4 Nursing Home Goal (LTG) Pt will perform progressive HEP with I including postural, flexibility, balance, LE strengthening, breathing, and VOR exercises to decrease symptoms and improve balance by 08/31/21. 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 She is doing exercises 1-2x/wk. 2-pt walking and doing exercises at home plan to update and progress program LTG Duration 8 weeks 3 Lens Mounter Goal (LTG) Pt will present with improved left shoulder flexion, left hip flexion, left knee flexion and left great toe extension to 5/5 to improve balance by . 07/03/21: Left shoulder flexion is 5/5, left hip flexion 4+/5, knee flexion 5/5, great toe extension 5/5. 06/02/21: Left shoulder flexion is 4/5; left hip flexion 4/5; left knee flexion 4/5; left great toe extension 5/5. 08/30-still very limited LTG Duration 8 weeks 2 Nursing Home Goal (LTG) Pt will report a 70% improvement in dizziness and headache symptoms to allow return to PLOF by 08/31/21. 07/03/21: Pt reports flare-up of symptoms since the snow. 03/29/21: Pt reports that in the recent weeks, her dizziness has gotten worse. It gets worse when she does not have PT for a long time and when she is playin with her down. Squatting too fast and sudden head movements are provocative. 08/30-pt reports no big change but does feel better fro the rest of the day after last session LTG Duration 8 weeks 1 Nursing Home Goal (LTG) Pt will perform WNLs on FGA to decrease fall risk and improve balance by 08/31/21. 07/03/21: FGA score is slightly improved with score 18/30 and pt reporting gait with head turns up and down and walking with eyes closed being the most symptomatic. Tandem gait is still not very possible. Turning at the end of the hallway required her to reach out to catch her balance. 08/30- LTG Duration 11/30/21 Assessment Summary Assessment Pt reports signficiant relief w/feeling of head heaviness after PT. She did well with dynamic balance challlenges but really struggles w/balance when in static positions. Physical Therapy Plan Frequency and Duration Frequency of Treatment 1x/Week Duration of Treatment 3 months Plan of Care Start Date 08/30/21 Plan of Care End Date 11/30/21 Next Visit Focus/Plan Next Note Type Treatment Note Next Visit Plan PNF further and cont to work balance
--- NOTE | 2021-10-30 13:51 | PT.OTN ---
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) Headache, unspecified (10/30/21) Weakness (10/30/21) Concussion with loss of consciousness of unspecified duration, subsequent encounter (10/30/21) Physical Therapy Treatment Note PT-OP-A Visit Information Start: 08/22/20 07:37 Freq: Status: Active Protocol: Document 10/30/21 13:01 [facility] (Rec: 10/30/21 13:51 [facility] [id number]) Out-Patient Physical Therapy Visit Information Visit Information Visit Type Treatment Note Visit Start Time 13:01 Visit Stop Time 13:42 Total Visit Minutes 41 Visit Number 03/24 Number of PRESS MAINTAINER Visits 0 PT-OP-B Current Condition Start: 08/22/20 07:37 Freq: Status: Active Protocol: Document 08/23/20 12:13 MB (Rec: 08/23/20 13:04 MB [id number]) Current Condition History of Current Condition Onset Date Surgery 07/27/20 Current Complaints Dizziness, light-headedness, ETIENNE and left leg pain and imbalance History of Current Condition 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 Pt had fall and concussion then as passed out. In PMH, pt writes back pain, superficial blood clot right LE, ulcers. Current complaints include: dizziness when active (walking and movements of neck), decreased processing words, headaches managed by medications, trouble opening right side of jaw post-op, neck pain and stiffness. Pt denies falls since surgery. Pt is wearing an ice hat. Pt reports pain right side of head, left jaw and left thigh. ETIENNE pain gets up to 5/10 with medication. Her neck pain is 4 /10. Left leg pain gets up to 7/10. She reports left leg pain as deep and shooting. Pt reports pain with walking on left leg. Pt reports that her left leg feels weak. The Cymbalta helps with nerve pain . Pt reports that her right eye brown does not yet move after surgery and the right side of her head is swollen. Mother states that pt still does not have any appetite. Treatment Goals Patient/Caregiver Goals Decrease pain, increase balance and leg strength. PT-OP-C Subjective Start: 08/22/20 07:37 Freq: Status: Active Protocol: Document 10/30/21 13:01 [facility] (Rec: 10/30/21 13:51 [facility] [id number]) OP-PT Subjective Patient Comments Patient Comments Pt reports head feels heavy but she has less ETIENNE. She started a new diet prescribed by ND she saw in [place] While visiting [place] BP was low. She is unsure why. Notes she has some testing to be done at but is awaiting call back PT-OP-D Balance Start: 08/22/20 07:37 Freq: Status: Active Protocol: Document 08/23/20 12:13 MB (Rec: 08/23/20 14:14 MB [id number]) Balance Tests Romberg Romberg LOB to the right and then the left, socks and no shoes PT-OP-E Functional Tests Start: 08/30/21 14:38 Freq: Status: Active Protocol: Document 08/30/21 14:38 [facility] (Rec: 08/30/21 18:29 [facility] [id number]) Functional Tests 6 Minute Walk Test Distance 1431ft Device Used none Functional Gait Assessment Score 17 PT-OP-G Mobility & Gait Start: 08/22/20 07:37 Freq: Status: Active Protocol: Document 08/23/20 12:13 MB (Rec: 08/23/20 14:14 MB [id number]) OP Gait Assessment Gait Gait Assistance Required: Independent Distance (Feet) 50 Able to Maintain Weight Bearing Status Yes During Gait Assistive Devices Assistive Device None Orthotic/Prosthetic Devices or Brace: No Gait Deviations General Gait Pattern Decreased Stride Length Factors Limiting Gait Function Factors Limiting Gait Function Decreased Strength,Pain,Poor Balance Comments Gait Comments Pt favors the left leg, looks down at the floor, presents with hesitancy with gait PT-OP-H Neuro Start: 08/22/20 07:37 Freq: Status: Active Protocol: Document 08/23/20 12:13 MB (Rec: 08/23/20 14:14 MB [id number]) Sensation Evaluation Comments Summary Comments Pt reports numbness right temporal area and eye brow Coordination Evaluation Upper Extremity Tests Right Finger to Nose Test Normal Performance Pronation/Supination Test Normal Performance Left Finger to Nose Test Normal Performance Pronation/Supination Test Minimal Impairment Comments Coordination Comments Right toe tapping over opposite foot normal x5 reps, rapid and accurate. Slow with left toe tapping over right foot and inaccurate, given for exercise for home: 10 reps every hour when sitting Vital Signs Pulse 1 Pulse at Rest (bpm) 77 Pulse Assessment Method Cuff Blood Pressure Sitting Blood Pressure (90/60-120/80 mmHg) 132/90 H Blood Pressure Source Automatic Cuff,Right Upper Extremity Comments Vital Signs Comments Doctor note for BP written under precautions, pt is in recommended range today PT-OP-K Range of Motion Start: 08/22/20 07:37 Freq: Status: Active Protocol: Document 08/23/20 12:13 MB (Rec: 08/23/20 14:14 MB [id number]) TMJ Range of Motion Comments Comments R eyebrow does not raise, can minimally lower. Pt presents with mild right jaw deviation and minimal dropping of left side of mouth with smile Toe Range of Motion Toes ROM Limitations Comments Decreased active left great toe extension compared to the right PT-OP-M Strength Start: 08/22/20 07:37 Freq: Status: Active Protocol: Document 08/30/21 14:38 [facility] (Rec: 08/30/21 18:29 [facility] [id number]) Hip Strength Hip Manual Muscle Testing Left Flexion (L2) 3+ Fair+ Extension (S1) 3 Fair Abduction 3 Fair External Rotation 3+ Fair+ Internal Rotation 3+ Fair+ Right Flexion (L2) 4+ Good+ Extension (S1) 3+ Fair+ Abduction 3+ Fair+ External Rotation 4- Good- Internal Rotation 4- Good- Ankle/Foot Strength Ankle and Foot Manual Muscle Testing Left Dorsiflexion (L4) 4+ Good+ Plantarflexion (S1) 5 Normal Comments PF tested seated Right Dorsiflexion (L4) 5 Normal Plantarflexion (S1) 5 Normal Toe Strength Toe Manual Muscle Testing Great Toe Extension 3+ Fair+ Comments L Right Great Toe Extension 5 Normal PT-OP-O Vestibular Start: 08/22/20 07:37 Freq: Status: Active Protocol: Document 08/23/20 12:13 MB (Rec: 08/23/20 14:14 MB [id number]) Vestibular Assessment Visual Testing Smooth Pursuits Horizontal Normal Smooth Pursuits Vertical Normal Gaze Evoked Nystagmus With Fixation Negative Convergence Test R impaired Spontaneous Nystagmus Negative Comments Vestibular Comments Left pupil with decreased reactivity to pen light but very minimal PT-OP-Q Treatments Start: 08/22/20 07:37 Freq: Status: Active Protocol: Document 10/30/21 13:01 [facility] (Rec: 10/30/21 13:51 [facility] [id number]) Therapeutic Exercises Sitting Exercises chin tuck Reps/Minutes 8 Manual Therapy Treatment Soft Tissue Mobilization cervical Body Location SOR, UT, paraspinals, scalenes Mobilization Type Rolling,Strumming,Sustained Pressure Intensity/Depth Moderate Body Position Hooklying Comments wchin tuck Joint Mobilizations cervical Comments 1. C6&7 PA R FM 2.C4 Grade 2 AP R Neuro Re-Education Treatment Balance Activities bosu Comments 1. step ups fwd x10 B 2. lat step up and to side 3. standing balance x2 min SLS Comments 1. toe taps to 8 in step x10 foam Details EC & head turns Surface blue foam Comments 1. staggered stance balance B trials 2. NBOS trials 3.WBOS PT-OP-T Assessment and Plan Start: 08/22/20 07:37 Freq: Status: Active Protocol: Document 10/30/21 13:01 [facility] (Rec: 10/30/21 13:51 [facility] [id number]) Physical Therapy Assessment Goals 5 Retirement Goal (LTG) Pt will gait train at least 1650 feet in 6 minutes without AD and no LOB or dragging finger on the wall for steadying assist by 08/31/21. 07/03/21: Pt gait trains 1654 feet in 6 minutes with occ left index finger dragging along wall to assist with balance with anti-clockwise gait. 06/02/21: Pt gait trains 1541 feet in 6 minutes, walking anti-clockwise. Twice, she rubs left hand on corner when turning to the left in the hallway. She has increased arms out and right arm swing and left LE does not move as well motor-viera compared to the right and requires effort to clear foot each time. Pt is wearing short wellingtons and this may cause exaggeration of lifting foot, requiring more effort which shows as such on the left. 03/29/21: Pt gait trains 1531 feet in 6 minutes, which is 3 feet further than when last tested in October 202008/30-1430ft LTG Duration 11/30/21 4 Pipe Line Repairer Goal (LTG) Pt will perform progressive HEP with I including postural, flexibility, balance, LE strengthening, breathing, and VOR exercises to decrease symptoms and improve balance by 08/31/21. 07/03/21: Pt is performing band exercises for legs, back cad technician self-massage, breathing, walking the dog, pelvic realignment exercises and balance exercises in the hallway. She is doing exercises 1-2x/wk. 2-pt walking and doing exercises at home plan to update and progress program LTG Duration 8 weeks 3 Retirement Goal (LTG) Pt will present with improved left shoulder flexion, left hip flexion, left knee flexion and left great toe extension to 5/5 to improve balance by . 07/03/21: Left shoulder flexion is 5/5, left hip flexion 4+/5, knee flexion 5/5, great toe extension 5/5. 06/02/21: Left shoulder flexion is 4/5; left hip flexion 4/5; left knee flexion 4/5; left great toe extension 5/5. 08/30-still very limited LTG Duration 8 weeks 2 Pipe Line Repairer Goal (LTG) Pt will report a 70% improvement in dizziness and headache symptoms to allow return to PLOF by 08/31/21. 07/03/21: Pt reports flare-up of symptoms since the snow. 03/29/21: Pt reports that in the recent weeks, her dizziness has gotten worse. It gets worse when she does not have PT for a long time and when she is playin with her down. Squatting too fast and sudden head movements are provocative. 08/30-pt reports no big change but does feel better fro the rest of the day after last session LTG Duration 8 weeks 1 Retirement Goal (LTG) Pt will perform WNLs on FGA to decrease fall risk and improve balance by 08/31/21. 07/03/21: FGA score is slightly improved with score 18/30 and pt reporting gait with head turns up and down and walking with eyes closed being the most symptomatic. Tandem gait is still not very possible. Turning at the end of the hallway required her to reach out to catch her balance. 08/30- LTG Duration 11/30/21 Assessment Summary Assessment Pt had better responses with balance today and had better trunk control. She required less assist to keep balance. Improved ability to get neck into neutral position after manual and relief noted. Physical Therapy Plan Frequency and Duration Frequency of Treatment 1x/Week Duration of Treatment 3 months Plan of Care Start Date 08/30/21 Plan of Care End Date 11/30/21 Next Visit Focus/Plan Next Note Type Treatment Note Next Visit Plan PNF further and cont to work balance
--- NOTE | 2021-11-07 14:36 | PT.OTN ---
Current Diagnoses Moyamoya disease (11/07/21) Headache, unspecified (11/07/21) Weakness (11/07/21) Concussion with loss of consciousness of unspecified duration, subsequent encounter (11/07/21) Physical Therapy Treatment Note PT-OP-A Visit Information Start: 08/22/20 07:37 Freq: Status: Active Protocol: Document 11/07/21 13:01 [facility] (Rec: 11/07/21 14:36 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 Pt had fall and concussion then as passed out. In PMH, pt writes back pain, superficial blood clot right LE, ulcers. Current complaints include: dizziness when active (walking and movements of neck), decreased processing words, headaches managed by medications, trouble opening right side of jaw post-op, neck pain and stiffness. Pt denies falls since surgery. Pt is wearing an ice hat. Pt reports pain right side of head, left jaw and left thigh. ETIENNE pain gets up to 5/10 with medication. Her neck pain is 4 /10. Left leg pain gets up to 7/10. She reports left leg pain as deep and shooting. Pt reports pain with walking on left leg. Pt reports that her left leg feels weak. The Cymbalta helps with nerve pain . Pt reports that her right eye brown does not yet move after surgery and the right side of her head is swollen. Mother states that pt still does not have any appetite. Treatment Goals Patient/Caregiver Goals Decrease pain, increase balance and leg strength. PT-OP-C Subjective Start: 08/22/20 07:37 Freq: Status: Active Protocol: Document 11/07/21 13:01 [facility] (Rec: 11/07/21 14:36 [facility] [id number]) OP-PT Subjective Patient Comments Patient Comments Pt reprots her neck has been better sine last visit. Notes she is tired today d/t dog waking her up d/t GI issues a lot last night PT-OP-D Balance Start: 08/22/20 07:37 Freq: Status: Active Protocol: Document 08/23/20 12:13 MB (Rec: 08/23/20 14:14 MB [id number]) Balance Tests Romberg Romberg LOB to the right and then the left, socks and no shoes PT-OP-E Functional Tests Start: 08/30/21 14:38 Freq: Status: Active Protocol: Document 08/30/21 14:38 [facility] (Rec: 08/30/21 18:29 [facility] [id number]) Functional Tests 6 Minute Walk Test Distance 1431ft Device Used none Functional Gait Assessment Score 17 PT-OP-G Mobility & Gait Start: 08/22/20 07:37 Freq: Status: Active Protocol: Document 08/23/20 12:13 MB (Rec: 08/23/20 14:14 MB [id number]) OP Gait Assessment Gait Gait Assistance Required: Independent Distance (Feet) 50 Able to Maintain Weight Bearing Status Yes During Gait Assistive Devices Assistive Device None Orthotic/Prosthetic Devices or Brace: No Gait Deviations General Gait Pattern Decreased Stride Length Factors Limiting Gait Function Factors Limiting Gait Function Decreased Strength,Pain,Poor Balance Comments Gait Comments Pt favors the left leg, looks down at the floor, presents with hesitancy with gait PT-OP-H Neuro Start: 08/22/20 07:37 Freq: Status: Active Protocol: Document 08/23/20 12:13 MB (Rec: 08/23/20 14:14 MB [id number]) Sensation Evaluation Comments Summary Comments Pt reports numbness right temporal area and eye brow Coordination Evaluation Upper Extremity Tests Right Finger to Nose Test Normal Performance Pronation/Supination Test Normal Performance Left Finger to Nose Test Normal Performance Pronation/Supination Test Minimal Impairment Comments Coordination Comments Right toe tapping over opposite foot normal x5 reps, rapid and accurate. Slow with left toe tapping over right foot and inaccurate, given for exercise for home: 10 reps every hour when sitting Vital Signs Pulse 1 Pulse at Rest (bpm) 77 Pulse Assessment Method Cuff Blood Pressure Sitting Blood Pressure (90/60-120/80 mmHg) 132/90 H Blood Pressure Source Automatic Cuff,Right Upper Extremity Comments Vital Signs Comments Doctor note for BP written under precautions, pt is in recommended range today PT-OP-K Range of Motion Start: 08/22/20 07:37 Freq: Status: Active Protocol: Document 08/23/20 12:13 MB (Rec: 08/23/20 14:14 MB [id number]) TMJ Range of Motion Comments Comments R eyebrow does not raise, can minimally lower. Pt presents with mild right jaw deviation and minimal dropping of left side of mouth with smile Toe Range of Motion Toes ROM Limitations Comments Decreased active left great toe extension compared to the right PT-OP-M Strength Start: 08/22/20 07:37 Freq: Status: Active Protocol: Document 08/30/21 14:38 [facility] (Rec: 08/30/21 18:29 [facility] [id number]) Hip Strength Hip Manual Muscle Testing Left Flexion (L2) 3+ Fair+ Extension (S1) 3 Fair Abduction 3 Fair External Rotation 3+ Fair+ Internal Rotation 3+ Fair+ Right Flexion (L2) 4+ Good+ Extension (S1) 3+ Fair+ Abduction 3+ Fair+ External Rotation 4- Good- Internal Rotation 4- Good- Ankle/Foot Strength Ankle and Foot Manual Muscle Testing Left Dorsiflexion (L4) 4+ Good+ Plantarflexion (S1) 5 Normal Comments PF tested seated Right Dorsiflexion (L4) 5 Normal Plantarflexion (S1) 5 Normal Toe Strength Toe Manual Muscle Testing Great Toe Extension 3+ Fair+ Comments L Right Great Toe Extension 5 Normal PT-OP-O Vestibular Start: 08/22/20 07:37 Freq: Status: Active Protocol: Document 08/23/20 12:13 MB (Rec: 08/23/20 14:14 MB [id number]) Vestibular Assessment Visual Testing Smooth Pursuits Horizontal Normal Smooth Pursuits Vertical Normal Gaze Evoked Nystagmus With Fixation Negative Convergence Test R impaired Spontaneous Nystagmus Negative Comments Vestibular Comments Left pupil with decreased reactivity to pen light but very minimal PT-OP-Q Treatments Start: 08/22/20 07:37 Freq: Status: Active Protocol: Document 11/07/21 13:01 [facility] (Rec: 11/07/21 14:36 [facility] [id number]) Gym Equipment Therapeutic Ball seated Ball Size/Color green Comments 1. marches w/core and posture cues x20 B 2. kicks w/tracie nd posture cues x15 B Manual Therapy Treatment Soft Tissue Mobilization cervical Body Location SOR, UT, paraspinals, scalenes Mobilization Type Rolling,Strumming,Sustained Pressure Intensity/Depth Moderate Body Position Hooklying Comments wchin tuck cranial fascia Body Location R>L Mobilization Type Myofascial Release Intensity/Depth Superficial Body Position Hooklying Comments into R forehead Joint Mobilizations cranial Joint mastoid Direction AP R Grade II Neuro Re-Education Treatment Balance Activities bosu Comments 1. step ups fwd x10 B 2. lat step up and to side 3. standing balance x2 min 4. squats (mini) blue side x10 SLS Comments 1. toe taps to 8 in step x10 2. march w/EC x10 B foam Details EC & head turns Surface blue foam Comments 1. staggered stance balance B trials 2. NBOS trials 3.WBOS PT-OP-T Assessment and Plan Start: 08/22/20 07:37 Freq: Status: Active Protocol: Document 11/07/21 13:01 [facility] (Rec: 11/07/21 14:36 [facility] [id number]) Physical Therapy Assessment Goals 5 Claim Inspector Goal (LTG) Pt will gait train at least 1650 feet in 6 minutes without AD and no LOB or dragging finger on the wall for steadying assist by 08/31/21. 07/03/21: Pt gait trains 1654 feet in 6 minutes with occ left index finger dragging along wall to assist with balance with anti-clockwise gait. 06/02/21: Pt gait trains 1541 feet in 6 minutes, walking anti-clockwise. Twice, she rubs left hand on corner when turning to the left in the hallway. She has increased arms out and right arm swing and left LE does not move as well motor-viera compared to the right and requires effort to clear foot each time. Pt is wearing short wellingtons and this may cause exaggeration of lifting foot, requiring more effort which shows as such on the left. 03/29/21: Pt gait trains 1531 feet in 6 minutes, which is 3 feet further than when last tested in October 202008/30-1430ft LTG Duration 11/30/21 4 Claim Inspector Goal (LTG) Pt will perform progressive HEP with I including postural, flexibility, balance, LE strengthening, breathing, and VOR exercises to decrease symptoms and improve balance by 08/31/21. 07/03/21: Pt is performing band exercises for legs, back shirt sorter self-massage, breathing, walking the dog, pelvic realignment exercises and balance exercises in the hallway. She is doing exercises 1-2x/wk. 2-pt walking and doing exercises at home plan to update and progress program LTG Duration 8 weeks 3 Shelter Goal (LTG) Pt will present with improved left shoulder flexion, left hip flexion, left knee flexion and left great toe extension to 5/5 to improve balance by . 07/03/21: Left shoulder flexion is 5/5, left hip flexion 4+/5, knee flexion 5/5, great toe extension 5/5. 06/02/21: Left shoulder flexion is 4/5; left hip flexion 4/5; left knee flexion 4/5; left great toe extension 5/5. 08/30-still very limited LTG Duration 8 weeks 2 Shelter Goal (LTG) Pt will report a 70% improvement in dizziness and headache symptoms to allow return to PLOF by 08/31/21. 07/03/21: Pt reports flare-up of symptoms since the snow. 03/29/21: Pt reports that in the recent weeks, her dizziness has gotten worse. It gets worse when she does not have PT for a long time and when she is playin with her down. Squatting too fast and sudden head movements are provocative. 08/30-pt reports no big change but does feel better fro the rest of the day after last session LTG Duration 8 weeks 1 Claim Inspector Goal (LTG) Pt will perform WNLs on FGA to decrease fall risk and improve balance by 08/31/21. 07/03/21: FGA score is slightly improved with score 18/30 and pt reporting gait with head turns up and down and walking with eyes closed being the most symptomatic. Tandem gait is still not very possible. Turning at the end of the hallway required her to reach out to catch her balance. 08/30- LTG Duration 11/30/21 Assessment Summary Assessment Improved ability for pt to get into good cervical posture after manual. Pt did well with balance but is most challenged by EC position Physical Therapy Plan Frequency and Duration Frequency of Treatment 1x/Week Duration of Treatment 3 months Plan of Care Start Date 08/30/21 Plan of Care End Date 11/30/21 Next Visit Focus/Plan Next Note Type Treatment Note Next Visit Plan PNF further and cont to work balance
--- NOTE | 2021-11-14 18:43 | PT.OTN ---
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) Headache, unspecified (11/14/21) Weakness (11/14/21) Concussion with loss of consciousness of unspecified duration, subsequent encounter (11/14/21) Physical Therapy Treatment Note PT-OP-A Visit Information Start: 08/22/20 07:37 Freq: Status: Active Protocol: Document 11/14/21 13:01 [facility] (Rec: 11/14/21 18:41 [facility] [id number]) Out-Patient Physical Therapy Visit Information Visit Information Visit Type Treatment Note Visit Start Time 13:04 Visit Stop Time 13:45 Total Visit Minutes 41 Visit Number 05/24 Number of BOOSTER PUMP OPERATOR Visits 0 PT-OP-B Current Condition Start: 08/22/20 07:37 Freq: Status: Active Protocol: Document 08/23/20 12:13 MB (Rec: 08/23/20 13:04 MB [id number]) Current Condition History of Current Condition Onset Date Surgery 07/27/20 Current Complaints Dizziness, light-headedness, ETIENNE and left leg pain and imbalance History of Current Condition 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 Pt had fall and concussion then as passed out. In PMH, pt writes back pain, superficial blood clot right LE, ulcers. Current complaints include: dizziness when active (walking and movements of neck), decreased processing words, headaches managed by medications, trouble opening right side of jaw post-op, neck pain and stiffness. Pt denies falls since surgery. Pt is wearing an ice hat. Pt reports pain right side of head, left jaw and left thigh. ETIENNE pain gets up to 5/10 with medication. Her neck pain is 4 /10. Left leg pain gets up to 7/10. She reports left leg pain as deep and shooting. Pt reports pain with walking on left leg. Pt reports that her left leg feels weak. The Cymbalta helps with nerve pain . Pt reports that her right eye brown does not yet move after surgery and the right side of her head is swollen. Mother states that pt still does not have any appetite. Treatment Goals Patient/Caregiver Goals Decrease pain, increase balance and leg strength. PT-OP-C Subjective Start: 08/22/20 07:37 Freq: Status: Active Protocol: Document 11/14/21 13:01 [facility] (Rec: 11/14/21 18:41 [facility] [id number]) OP-PT Subjective Patient Comments Patient Comments pt reports having to fill out a lot of forms prior to treatment. notes her head is pounding from that and she is very fatigued PT-OP-D Balance Start: 08/22/20 07:37 Freq: Status: Active Protocol: Document 08/23/20 12:13 MB (Rec: 08/23/20 14:14 MB [id number]) Balance Tests Romberg Romberg LOB to the right and then the left, socks and no shoes PT-OP-E Functional Tests Start: 08/30/21 14:38 Freq: Status: Active Protocol: Document 08/30/21 14:38 [facility] (Rec: 08/30/21 18:29 [facility] [id number]) Functional Tests 6 Minute Walk Test Distance 1431ft Device Used none Functional Gait Assessment Score 17 PT-OP-G Mobility & Gait Start: 08/22/20 07:37 Freq: Status: Active Protocol: Document 08/23/20 12:13 MB (Rec: 08/23/20 14:14 MB [id number]) OP Gait Assessment Gait Gait Assistance Required: Independent Distance (Feet) 50 Able to Maintain Weight Bearing Status Yes During Gait Assistive Devices Assistive Device None Orthotic/Prosthetic Devices or Brace: No Gait Deviations General Gait Pattern Decreased Stride Length Factors Limiting Gait Function Factors Limiting Gait Function Decreased Strength,Pain,Poor Balance Comments Gait Comments Pt favors the left leg, looks down at the floor, presents with hesitancy with gait PT-OP-H Neuro Start: 08/22/20 07:37 Freq: Status: Active Protocol: Document 08/23/20 12:13 MB (Rec: 08/23/20 14:14 MB [id number]) Sensation Evaluation Comments Summary Comments Pt reports numbness right temporal area and eye brow Coordination Evaluation Upper Extremity Tests Right Finger to Nose Test Normal Performance Pronation/Supination Test Normal Performance Left Finger to Nose Test Normal Performance Pronation/Supination Test Minimal Impairment Comments Coordination Comments Right toe tapping over opposite foot normal x5 reps, rapid and accurate. Slow with left toe tapping over right foot and inaccurate, given for exercise for home: 10 reps every hour when sitting Vital Signs Pulse 1 Pulse at Rest (bpm) 77 Pulse Assessment Method Cuff Blood Pressure Sitting Blood Pressure (90/60-120/80 mmHg) 132/90 H Blood Pressure Source Automatic Cuff,Right Upper Extremity Comments Vital Signs Comments Doctor note for BP written under precautions, pt is in recommended range today PT-OP-K Range of Motion Start: 08/22/20 07:37 Freq: Status: Active Protocol: Document 08/23/20 12:13 MB (Rec: 08/23/20 14:14 MB [id number]) TMJ Range of Motion Comments Comments R eyebrow does not raise, can minimally lower. Pt presents with mild right jaw deviation and minimal dropping of left side of mouth with smile Toe Range of Motion Toes ROM Limitations Comments Decreased active left great toe extension compared to the right PT-OP-M Strength Start: 08/22/20 07:37 Freq: Status: Active Protocol: Document 08/30/21 14:38 [facility] (Rec: 08/30/21 18:29 [facility] [id number]) Hip Strength Hip Manual Muscle Testing Left Flexion (L2) 3+ Fair+ Extension (S1) 3 Fair Abduction 3 Fair External Rotation 3+ Fair+ Internal Rotation 3+ Fair+ Right Flexion (L2) 4+ Good+ Extension (S1) 3+ Fair+ Abduction 3+ Fair+ External Rotation 4- Good- Internal Rotation 4- Good- Ankle/Foot Strength Ankle and Foot Manual Muscle Testing Left Dorsiflexion (L4) 4+ Good+ Plantarflexion (S1) 5 Normal Comments PF tested seated Right Dorsiflexion (L4) 5 Normal Plantarflexion (S1) 5 Normal Toe Strength Toe Manual Muscle Testing Great Toe Extension 3+ Fair+ Comments L Right Great Toe Extension 5 Normal PT-OP-O Vestibular Start: 08/22/20 07:37 Freq: Status: Active Protocol: Document 08/23/20 12:13 MB (Rec: 08/23/20 14:14 MB [id number]) Vestibular Assessment Visual Testing Smooth Pursuits Horizontal Normal Smooth Pursuits Vertical Normal Gaze Evoked Nystagmus With Fixation Negative Convergence Test R impaired Spontaneous Nystagmus Negative Comments Vestibular Comments Left pupil with decreased reactivity to pen light but very minimal PT-OP-Q Treatments Start: 08/22/20 07:37 Freq: Status: Active Protocol: Document 11/14/21 13:01 [facility] (Rec: 11/14/21 18:41 [facility] [id number]) Therapeutic Exercises Sidelying Exercises Open book with pect stretch and rib breathing Sidelying Exercise Name open book Side bilateral Reps/Minutes 10 ea Standing Exercises stretch Standing Exercise Name pec 90/90 corner stretch Side bilateral Reps/Minutes 1 min Manual Therapy Treatment Soft Tissue Mobilization QL Body Location R & B colon Mobilization Type Rolling,Strumming Intensity/Depth Moderate Body Position Sidelying Comments w/open book cervical Body Location SOR, UT, paraspinals, scalenes Mobilization Type Rolling,Strumming,Sustained Pressure Intensity/Depth Moderate Body Position Hooklying Comments wchin tuck cranial fascia Body Location R>L Mobilization Type Myofascial Release Intensity/Depth Superficial Body Position Hooklying Comments into R forehead Joint Mobilizations sternum Joint DANIELITO FM w/cervical flex prom ribs Comments 1. rib depression throughout R FM w/breathing 2. AP rib 2 3. caudal ribs 4 FM cranial Joint mastoid Direction AP R Grade II PT-OP-T Assessment and Plan Start: 08/22/20 07:37 Freq: Status: Active Protocol: Document 11/14/21 13:01 [facility] (Rec: 11/14/21 18:42 [facility] [id number]) Physical Therapy Assessment Goals 5 Detention Goal (LTG) Pt will gait train at least 1650 feet in 6 minutes without AD and no LOB or dragging finger on the wall for steadying assist by 08/31/21. 07/03/21: Pt gait trains 1654 feet in 6 minutes with occ left index finger dragging along wall to assist with balance with anti-clockwise gait. 06/02/21: Pt gait trains 1541 feet in 6 minutes, walking anti-clockwise. Twice, she rubs left hand on corner when turning to the left in the hallway. She has increased arms out and right arm swing and left LE does not move as well motor-viera compared to the right and requires effort to clear foot each time. Pt is wearing short wellingtons and this may cause exaggeration of lifting foot, requiring more effort which shows as such on the left. 03/29/21: Pt gait trains 1531 feet in 6 minutes, which is 3 feet further than when last tested in October 202008/30-143ft LTG Duration 11/30/21 4 Detention Goal (LTG) Pt will perform progressive HEP with I including postural, flexibility, balance, LE strengthening, breathing, and VOR exercises to decrease symptoms and improve balance by 08/31/21. 07/03/21: Pt is performing band exercises for legs, back news content specialist self-massage, breathing, walking the dog, pelvic realignment exercises and balance exercises in the hallway. She is doing exercises 1-2x/wk. 08/30-pt walking and doing exercises at home plan to update and progress program LTG Duration 8 weeks 3 Detention Goal (LTG) Pt will present with improved left shoulder flexion, left hip flexion, left knee flexion and left great toe extension to 5/5 to improve balance by . 07/03/21: Left shoulder flexion is 5/5, left hip flexion 4+/5, knee flexion 5/5, great toe extension 5/5. 06/02/21: Left shoulder flexion is 4/5; left hip flexion 4/5; left knee flexion 4/5; left great toe extension 5/5. 08/30-still very limited LTG Duration 8 weeks 2 Detention Goal (LTG) Pt will report a 70% improvement in dizziness and headache symptoms to allow return to PLOF by 08/31/21. 07/03/21: Pt reports flare-up of symptoms since the snow. 03/29/21: Pt reports that in the recent weeks, her dizziness has gotten worse. It gets worse when she does not have PT for a long time and when she is playin with her down. Squatting too fast and sudden head movements are provocative. 08/30-pt reports no big change but does feel better fro the rest of the day after last session LTG Duration 8 weeks 1 Flame Cutting Machine Operator Helper Goal (LTG) Pt will perform WNLs on FGA to decrease fall risk and improve balance by 08/31/21. 07/03/21: FGA score is slightly improved with score 18/30 and pt reporting gait with head turns up and down and walking with eyes closed being the most symptomatic. Tandem gait is still not very possible. Turning at the end of the hallway required her to reach out to catch her balance. 08/30- LTG Duration 11/30/21 Assessment Summary Assessment Pt had improved ability for scap depression w/manual treatment and imrpoved rotation in open book postion. Pt given exercises to maintain this to help w/neck posiiton for home. Physical Therapy Plan Frequency and Duration Frequency of Treatment 1x/Week Duration of Treatment 3 months Plan of Care Start Date 08/30/21 Plan of Care End Date 11/30/21 Next Visit Focus/Plan Next Note Type Treatment Note Next Visit Plan PNF further and cont to work balance
--- NOTE | 2021-11-21 13:50 | PT.OTN ---
Current Diagnoses Moyamoya disease (11/21/21) Headache, unspecified (11/21/21) Weakness (11/21/21) Concussion with loss of consciousness of unspecified duration, subsequent encounter (11/21/21) Physical Therapy Treatment Note PT-OP-A Visit Information Start: 08/22/20 07:37 Freq: Status: Active Protocol: Document 11/21/21 12:59 [facility] (Rec: 11/21/21 13:50 [facility] [id number]) Out-Patient Physical Therapy Visit Information Visit Information Visit Type Treatment Note Visit Start Time 13:01 Visit Stop Time 13:45 Total Visit Minutes 44 Visit Number 06/23 Number of PIPE STEM ALIGNER Visits 0 PT-OP-B Current Condition Start: 08/22/20 07:37 Freq: Status: Active Protocol: Document 08/23/20 12:13 MB (Rec: 08/23/20 13:04 MB [id number]) Current Condition History of Current Condition Onset Date Surgery 07/27/20 Current Complaints Dizziness, light-headedness, ETIENNE and left leg pain and imbalance History of Current Condition 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 Pt had fall and concussion then as passed out. In PMH, pt writes back pain, superficial blood clot right LE, ulcers. Current complaints include: dizziness when active (walking and movements of neck), decreased processing words, headaches managed by medications, trouble opening right side of jaw post-op, neck pain and stiffness. Pt denies falls since surgery. Pt is wearing an ice hat. Pt reports pain right side of head, left jaw and left thigh. ETIENNE pain gets up to 5/10 with medication. Her neck pain is 4 /10. Left leg pain gets up to 7/10. She reports left leg pain as deep and shooting. Pt reports pain with walking on left leg. Pt reports that her left leg feels weak. The Cymbalta helps with nerve pain . Pt reports that her right eye brown does not yet move after surgery and the right side of her head is swollen. Mother states that pt still does not have any appetite. Treatment Goals Patient/Caregiver Goals Decrease pain, increase balance and leg strength. PT-OP-C Subjective Start: 08/22/20 07:37 Freq: Status: Active Protocol: Document 11/21/21 12:59 [facility] (Rec: 11/21/21 13:50 [facility] [id number]) OP-PT Subjective Patient Comments Patient Comments Pt reports took dog for a long walk d/t waking up feeling good this AM. Notes she is wiped out from that. PT-OP-D Balance Start: 08/22/20 07:37 Freq: Status: Active Protocol: Document 08/23/20 12:13 MB (Rec: 08/23/20 14:14 MB [id number]) Balance Tests Romberg Romberg LOB to the right and then the left, socks and no shoes PT-OP-E Functional Tests Start: 08/30/21 14:38 Freq: Status: Active Protocol: Document 08/30/21 14:38 [facility] (Rec: 08/30/21 18:29 [facility] [id number]) Functional Tests 6 Minute Walk Test Distance 1431ft Device Used none Functional Gait Assessment Score 17 PT-OP-G Mobility & Gait Start: 08/22/20 07:37 Freq: Status: Active Protocol: Document 08/23/20 12:13 MB (Rec: 08/23/20 14:14 MB [id number]) OP Gait Assessment Gait Gait Assistance Required: Independent Distance (Feet) 50 Able to Maintain Weight Bearing Status Yes During Gait Assistive Devices Assistive Device None Orthotic/Prosthetic Devices or Brace: No Gait Deviations General Gait Pattern Decreased Stride Length Factors Limiting Gait Function Factors Limiting Gait Function Decreased Strength,Pain,Poor Balance Comments Gait Comments Pt favors the left leg, looks down at the floor, presents with hesitancy with gait PT-OP-H Neuro Start: 08/22/20 07:37 Freq: Status: Active Protocol: Document 08/23/20 12:13 MB (Rec: 08/23/20 14:14 MB [id number]) Sensation Evaluation Comments Summary Comments Pt reports numbness right temporal area and eye brow Coordination Evaluation Upper Extremity Tests Right Finger to Nose Test Normal Performance Pronation/Supination Test Normal Performance Left Finger to Nose Test Normal Performance Pronation/Supination Test Minimal Impairment Comments Coordination Comments Right toe tapping over opposite foot normal x5 reps, rapid and accurate. Slow with left toe tapping over right foot and inaccurate, given for exercise for home: 10 reps every hour when sitting Vital Signs Pulse 1 Pulse at Rest (bpm) 77 Pulse Assessment Method Cuff Blood Pressure Sitting Blood Pressure (90/60-120/80 mmHg) 132/90 H Blood Pressure Source Automatic Cuff,Right Upper Extremity Comments Vital Signs Comments Doctor note for BP written under precautions, pt is in recommended range today PT-OP-K Range of Motion Start: 08/22/20 07:37 Freq: Status: Active Protocol: Document 08/23/20 12:13 MB (Rec: 08/23/20 14:14 MB [id number]) TMJ Range of Motion Comments Comments R eyebrow does not raise, can minimally lower. Pt presents with mild right jaw deviation and minimal dropping of left side of mouth with smile Toe Range of Motion Toes ROM Limitations Comments Decreased active left great toe extension compared to the right PT-OP-M Strength Start: 08/22/20 07:37 Freq: Status: Active Protocol: Document 08/30/21 14:38 [facility] (Rec: 08/30/21 18:29 [facility] [id number]) Hip Strength Hip Manual Muscle Testing Left Flexion (L2) 3+ Fair+ Extension (S1) 3 Fair Abduction 3 Fair External Rotation 3+ Fair+ Internal Rotation 3+ Fair+ Right Flexion (L2) 4+ Good+ Extension (S1) 3+ Fair+ Abduction 3+ Fair+ External Rotation 4- Good- Internal Rotation 4- Good- Ankle/Foot Strength Ankle and Foot Manual Muscle Testing Left Dorsiflexion (L4) 4+ Good+ Plantarflexion (S1) 5 Normal Comments PF tested seated Right Dorsiflexion (L4) 5 Normal Plantarflexion (S1) 5 Normal Toe Strength Toe Manual Muscle Testing Great Toe Extension 3+ Fair+ Comments L Right Great Toe Extension 5 Normal PT-OP-O Vestibular Start: 08/22/20 07:37 Freq: Status: Active Protocol: Document 08/23/20 12:13 MB (Rec: 08/23/20 14:14 MB [id number]) Vestibular Assessment Visual Testing Smooth Pursuits Horizontal Normal Smooth Pursuits Vertical Normal Gaze Evoked Nystagmus With Fixation Negative Convergence Test R impaired Spontaneous Nystagmus Negative Comments Vestibular Comments Left pupil with decreased reactivity to pen light but very minimal PT-OP-Q Treatments Start: 08/22/20 07:37 Freq: Status: Active Protocol: Document 11/21/21 12:59 [facility] (Rec: 11/21/21 13:50 [facility] [id number]) Therapeutic Exercises Supine Exercises axial elongation Supine Exercise Name w/facet ant pull Side bilateral Reps/Minutes 10 sec x10 Comments done throughout cervical spine Sidelying Exercises 1st rib Sidelying Exercise Name self mob w/rolling Side right Reps/Minutes 15 Manual Therapy Treatment Soft Tissue Mobilization cervical Body Location SOR, UT, paraspinals, scalenes Mobilization Type Rolling,Strumming,Sustained Pressure Intensity/Depth Moderate Body Position Hooklying Comments wchin tuck & flex Joint Mobilizations thoracic Comments T1-6 R transverse FM sternum Joint DANIELITO FM w/cervical flex prom ribs Comments 1. caudal rib 2 & 3 2. ap r RIB 1-2 3. caudal rib 1 FM 4.distraction R rib 1-3 PT-OP-T Assessment and Plan Start: 08/22/20 07:37 Freq: Status: Active Protocol: Document 11/21/21 12:59 [facility] (Rec: 11/21/21 13:50 [facility] [id number]) Physical Therapy Assessment Goals 5 Meat Slicer Goal (LTG) Pt will gait train at least 1650 feet in 6 minutes without AD and no LOB or dragging finger on the wall for steadying assist by 08/31/21. 07/03/21: Pt gait trains 1654 feet in 6 minutes with occ left index finger dragging along wall to assist with balance with anti-clockwise gait. 06/02/21: Pt gait trains 1541 feet in 6 minutes, walking anti-clockwise. Twice, she rubs left hand on corner when turning to the left in the hallway. She has increased arms out and right arm swing and left LE does not move as well motor-viera compared to the right and requires effort to clear foot each time. Pt is wearing short wellingtons and this may cause exaggeration of lifting foot, requiring more effort which shows as such on the left. 03/29/21: Pt gait trains 1531 feet in 6 minutes, which is 3 feet further than when last tested in October 202008/30-1430ft LTG Duration 11/30/21 4 Prison Goal (LTG) Pt will perform progressive HEP with I including postural, flexibility, balance, LE strengthening, breathing, and VOR exercises to decrease symptoms and improve balance by 08/31/21. 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 She is doing exercises 1-2x/wk. 3/2-pt walking and doing exercises at home plan to update and progress program LTG Duration 8 weeks 3 Meat Slicer Goal (LTG) Pt will present with improved left shoulder flexion, left hip flexion, left knee flexion and left great toe extension to 5/5 to improve balance by . 07/03/21: Left shoulder flexion is 5/5, left hip flexion 4+/5, knee flexion 5/5, great toe extension 5/5. 06/02/21: Left shoulder flexion is 4/5; left hip flexion 4/5; left knee flexion 4/5; left great toe extension 5/5. 32-still very limited LTG Duration 8 weeks 2 Prison Goal (LTG) Pt will report a 70% improvement in dizziness and headache symptoms to allow return to PLOF by 08/31/21. 07/03/21: Pt reports flare-up of symptoms since the snow. 03/29/21: Pt reports that in the recent weeks, her dizziness has gotten worse. It gets worse when she does not have PT for a long time and when she is playin with her down. Squatting too fast and sudden head movements are provocative. 3/2-pt reports no big change but does feel better fro the rest of the day after last session LTG Duration 8 weeks 1 Meat Slicer Goal (LTG) Pt will perform WNLs on FGA to decrease fall risk and improve balance by 08/31/21. 07/03/21: FGA score is slightly improved with score 18/30 and pt reporting gait with head turns up and down and walking with eyes closed being the most symptomatic. Tandem gait is still not very possible. Turning at the end of the hallway required her to reach out to catch her balance. 08/30- LTG Duration 11/30/21 Assessment Summary Assessment Exercises videoed fro pt to help w/remembering for home. Pt is weak w/axial elongation and encouraged to wrok on stability at each level. Physical Therapy Plan Frequency and Duration Frequency of Treatment 1x/Week Duration of Treatment 3 months Plan of Care Start Date 08/30/21 Plan of Care End Date 11/30/21 Next Visit Focus/Plan Next Note Type Treatment Note Next Visit Plan PNF further and cont to work balance
--- NOTE | 2021-11-28 13:51 | PT.OTN ---
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) Headache, unspecified (11/28/21) Weakness (11/28/21) Concussion with loss of consciousness of unspecified duration, subsequent encounter (11/28/21) Physical Therapy Treatment Note PT-OP-A Visit Information Start: 08/22/20 07:37 Freq: Status: Active Protocol: Document 11/28/21 13:00 [facility] (Rec: 11/28/21 13:51 [facility] [id number]) Out-Patient Physical Therapy Visit Information Visit Information Visit Type Progress Note Visit Start Time 13:00 Visit Stop Time 13:43 Total Visit Minutes 43 Visit Number Number of FLATWORK SUPERVISOR Visits 0 PT-OP-B Current Condition Start: 08/22/20 07:37 Freq: Status: Active Protocol: Document 08/23/20 12:13 MB (Rec: 08/23/20 13:04 MB [id number]) Current Condition History of Current Condition Onset Date Surgery 07/27/20 Current Complaints Dizziness, light-headedness, ETIENNE and left leg pain and imbalance History of Current Condition 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 Pt had fall and concussion then as passed out. In PMH, pt writes back pain, superficial blood clot right LE, ulcers. Current complaints include: dizziness when active (walking and movements of neck), decreased processing words, headaches managed by medications, trouble opening right side of jaw post-op, neck pain and stiffness. Pt denies falls since surgery. Pt is wearing an ice hat. Pt reports pain right side of head, left jaw and left thigh. ETIENNE pain gets up to 5/10 with medication. Her neck pain is 4 /10. Left leg pain gets up to 7/10. She reports left leg pain as deep and shooting. Pt reports pain with walking on left leg. Pt reports that her left leg feels weak. The Cymbalta helps with nerve pain . Pt reports that her right eye brown does not yet move after surgery and the right side of her head is swollen. Mother states that pt still does not have any appetite. Treatment Goals Patient/Caregiver Goals Decrease pain, increase balance and leg strength. PT-OP-C Subjective Start: 08/22/20 07:37 Freq: Status: Active Protocol: Document 11/28/21 13:00 [facility] (Rec: 11/28/21 13:50 [facility] [id number]) OP-PT Subjective Patient Comments Patient Comments Pt reports she did something to neck and shouler (L). It started 2 days after last session. She felt good after last session for entire next day. PT-OP-D Balance Start: 08/22/20 07:37 Freq: Status: Active Protocol: Document 08/23/20 12:13 MB (Rec: 08/23/20 14:14 MB [id number]) Balance Tests Romberg Romberg LOB to the right and then the left, socks and no shoes PT-OP-E Functional Tests Start: 08/30/21 14:38 Freq: Status: Active Protocol: Document 11/28/21 13:00 [facility] (Rec: 11/28/21 13:50 [facility] [id number]) Functional Tests 6 Minute Walk Test Distance 1481ft Device Used none Functional Gait Assessment Score 19 PT-OP-G Mobility & Gait Start: 08/22/20 07:37 Freq: Status: Active Protocol: Document 08/23/20 12:13 MB (Rec: 08/23/20 14:14 MB [id number]) OP Gait Assessment Gait Gait Assistance Required: Independent Distance (Feet) 50 Able to Maintain Weight Bearing Status Yes During Gait Assistive Devices Assistive Device None Orthotic/Prosthetic Devices or Brace: No Gait Deviations General Gait Pattern Decreased Stride Length Factors Limiting Gait Function Factors Limiting Gait Function Decreased Strength,Pain,Poor Balance Comments Gait Comments Pt favors the left leg, looks down at the floor, presents with hesitancy with gait PT-OP-H Neuro Start: 08/22/20 07:37 Freq: Status: Active Protocol: Document 08/23/20 12:13 MB (Rec: 08/23/20 14:14 MB [id number]) Sensation Evaluation Comments Summary Comments Pt reports numbness right temporal area and eye brow Coordination Evaluation Upper Extremity Tests Right Finger to Nose Test Normal Performance Pronation/Supination Test Normal Performance Left Finger to Nose Test Normal Performance Pronation/Supination Test Minimal Impairment Comments Coordination Comments Right toe tapping over opposite foot normal x5 reps, rapid and accurate. Slow with left toe tapping over right foot and inaccurate, given for exercise for home: 10 reps every hour when sitting Vital Signs Pulse 1 Pulse at Rest (bpm) 77 Pulse Assessment Method Cuff Blood Pressure Sitting Blood Pressure (90/60-120/80 mmHg) 132/90 H Blood Pressure Source Automatic Cuff,Right Upper Extremity Comments Vital Signs Comments Doctor note for BP written under precautions, pt is in recommended range today PT-OP-K Range of Motion Start: 08/22/20 07:37 Freq: Status: Active Protocol: Document 08/23/20 12:13 MB (Rec: 08/23/20 14:14 MB [id number]) TMJ Range of Motion Comments Comments R eyebrow does not raise, can minimally lower. Pt presents with mild right jaw deviation and minimal dropping of left side of mouth with smile Toe Range of Motion Toes ROM Limitations Comments Decreased active left great toe extension compared to the right PT-OP-M Strength Start: 08/22/20 07:37 Freq: Status: Active Protocol: Document 11/28/21 13:00 [facility] (Rec: 11/28/21 13:50 [facility] [id number]) Shoulder Strength Shoulder Manual Muscle Testing Left Flexion 5 Normal Abduction (C5) 5 Normal Adduction 5 Normal Right Flexion 5 Normal Abduction (C5) 5 Normal Hip Strength Hip Manual Muscle Testing Left Flexion (L2) 4- Good- Extension (S1) 4 Good Abduction 3 Fair Adduction 3+ Fair+ External Rotation 4- Good- Internal Rotation 4- Good- Right Flexion (L2) 4+ Good+ Extension (S1) 4+ Good+ Abduction 4- Good- Adduction 5 Normal External Rotation 4+ Good+ Internal Rotation 4+ Good+ Knee Strength Knee Manual Muscle Testing Left Flexion (S2) 4+ Good+ Extension (L3) 5 Normal Comments Pt sitting Right Flexion (S2) 5 Normal Extension (L3) 5 Normal Comments Pt sitting Ankle/Foot Strength Ankle and Foot Manual Muscle Testing Left Dorsiflexion (L4) 5 Normal Plantarflexion (S1) 5 Normal Comments 20 heel raises Right Dorsiflexion (L4) 5 Normal Plantarflexion (S1) 5 Normal Comments 20 heel raises Toe Strength Toe Manual Muscle Testing Great Toe Extension 5 Normal Comments L Right Great Toe Extension 4+ Good+ PT-OP-O Vestibular Start: 08/22/20 07:37 Freq: Status: Active Protocol: Document 08/23/20 12:13 MB (Rec: 08/23/20 14:14 MB [id number]) Vestibular Assessment Visual Testing Smooth Pursuits Horizontal Normal Smooth Pursuits Vertical Normal Gaze Evoked Nystagmus With Fixation Negative Convergence Test R impaired Spontaneous Nystagmus Negative Comments Vestibular Comments Left pupil with decreased reactivity to pen light but very minimal PT-OP-Q Treatments Start: 08/22/20 07:37 Freq: Status: Active Protocol: Document 11/28/21 13:00 [facility] (Rec: 11/28/21 13:50 [facility] [id number]) Therapeutic Exercises Sidelying Exercises hip abd Side bilateral Reps/Minutes 15 ea Manual Therapy Treatment Joint Mobilizations ribs Comments 1. caudal rib L 2 & 3 2. ap L RIB 1-2 3. caudal rib 1 FM L 4.distraction Lrib 1-3 Neuro Re-Education Treatment Balance Activities staggered stance Comments NBOS & staggered stance w/head turns PT-OP-T Assessment and Plan Start: 08/22/20 07:37 Freq: Status: Active Protocol: Document 11/28/21 13:00 [facility] (Rec: 11/28/21 13:50 [facility] [id number]) Physical Therapy Assessment Goals 5 Floral Clerk Goal (LTG) Pt will gait train at least 1650 feet in 6 minutes without AD and no LOB or dragging finger on the wall for steadying assist by 08/31/21. 07/03/21: Pt gait trains 1654 feet in 6 minutes with occ left index finger dragging along wall to assist with balance with anti-clockwise gait. 06/02/21: Pt gait trains 1541 feet in 6 minutes, walking anti-clockwise. Twice, she rubs left hand on corner when turning to the left in the hallway. She has increased arms out and right arm swing and left LE does not move as well motor-viera compared to the right and requires effort to clear foot each time. Pt is wearing short wellingtons and this may cause exaggeration of lifting foot, requiring more effort which shows as such on the left. 03/29/21: Pt gait trains 1531 feet in 6 minutes, which is 3 feet further than when last tested in October 202008/30-14311/28- LTG Duration 02/27 4 Residential Goal (LTG) Pt will perform progressive HEP with I including postural, flexibility, balance, LE strengthening, breathing, and VOR exercises to decrease symptoms and improve balance by 08/31/21. 07/03/21: Pt is performing band exercises for legs, back distance learning technician self-massage, breathing, walking the dog, pelvic realignment exercises and balance exercises in the hallway. She is doing exercises 1-2x/wk. 08/30-pt walking and doing exercises at home plan to update and progress program 11/28-advancing based on cont deficits LTG Duration 01/28/22 3 Floral Clerk Goal (LTG) Pt will present with improved left shoulder flexion, left hip flexion, left knee flexion and left great toe extension to 5/5 to improve balance by . 07/03/21: Left shoulder flexion is 5/5, left hip flexion 4+/5, knee flexion 5/5, great toe extension 5/5. 06/02/21: Left shoulder flexion is 4/5; left hip flexion 4/5; left knee flexion 4/5; left great toe extension 5/5. 08/30-still very limited 11/28-change goal to at least 4 +/5 all LE MMT as UE MMT is WNL LTG Duration 02/27 2 Floral Clerk Goal (LTG) Pt will report a 70% improvement in dizziness and headache symptoms to allow return to PLOF by 08/31/21. 07/03/21: Pt reports flare-up of symptoms since the snow. 03/29/21: Pt reports that in the recent weeks, her dizziness has gotten worse. It gets worse when she does not have PT for a long time and when she is playin with her down. Squatting too fast and sudden head movements are provocative. 08/30-pt reports no big change but does feel better fro the rest of the day after last session 11/28-dizziness has improved about 50%; ETIENNE about 75% improvement since start of PT LTG Duration 02/27 1 Floral Clerk Goal (LTG) Pt will perform WNLs on FGA to decrease fall risk and improve balance by 08/31/21. 07/03/21: FGA score is slightly improved with score 18/30 and pt reporting gait with head turns up and down and walking with eyes closed being the most symptomatic. Tandem gait is still not very possible. Turning at the end of the hallway required her to reach out to catch her balance. 08/30- 11/28- improved LTG Duration 02/27 Assessment Summary Assessment Pt is progressing w/exercises and balance work along w/dec symptoms overall of dizziness and ETIENNE. She does still report symptoms and show dec balance but she does not fall over as much when challeged w/static balance and has more appropriate balance responses. She would benefit from cont PT to cont address these dficits. Physical Therapy Plan Frequency and Duration Frequency of Treatment 1x/Week Duration of Treatment 3 months Plan of Care Start Date 11/28/21 Plan of Care End Date 02/27/22 Therapeutic Interventions Therapeutic Interventions Balance Training,Canalithic Repositioning,Coordination Training,Gait Training,Home Exercise Program,Joint Mobilizations,Manual Therapy, Neuromuscular Re-education, Patient/Caregiver Education, Self-Care/Home Management, Sensory Integration,Soft Tissue Mobilization,Taping, Therapeutic Activities, Therapeutic Exercises, Vestibular Rehabilitation Modalities Cold Pack/Ice Massage,Electric Stimulation,Hot Packs, Ultrasound Next Visit Focus/Plan Next Note Type Treatment Note Next Visit Plan walk w/pt with her dog w/ obstacles outside and assess her throw w/dog
--- NOTE | 2021-11-28 13:51 | PT.OPPOC ---
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) Headache, unspecified (11/28/21) Weakness (11/28/21) Concussion with loss of consciousness of unspecified duration, subsequent encounter (11/28/21) Visit Care Team Role Provider Type Christen Figueroa PA-C Primary Care Provider Non-Staff Specialty: Family Practice Address: [address], [address], [place], [address] Email: TONE Riley Attending Provider Non-Staff Referring Provider Specialty: Nursing Address: [address] [place] [address] [address], [place], [address] Email: Plan Of Care PT-OP-T Assessment and Plan Start: 08/22/20 07:37 Freq: Status: Active Protocol: Document 11/28/21 13:00 [facility] (Rec: 11/28/21 13:50 [facility] [id number]) Physical Therapy Assessment Goals 5 Security Guards Dispatcher Goal (LTG) Pt will gait train at least 1650 feet in 6 minutes without AD and no LOB or dragging finger on the wall for steadying assist by 08/31/21. 07/03/21: Pt gait trains 1654 feet in 6 minutes with occ left index finger dragging along wall to assist with balance with anti-clockwise gait. 06/02/21: Pt gait trains 1541 feet in 6 minutes, walking anti-clockwise. Twice, she rubs left hand on corner when turning to the left in the hallway. She has increased arms out and right arm swing and left LE does not move as well motor-viera compared to the right and requires effort to clear foot each time. Pt is wearing short wellingtons and this may cause exaggeration of lifting foot, requiring more effort which shows as such on the left. 03/29/21: Pt gait trains 1531 feet in 6 minutes, which is 3 feet further than when last tested in October 202008/30-14311/28-148 LTG Duration 02/27 4 Security Guards Dispatcher Goal (LTG) Pt will perform progressive HEP with I including postural, flexibility, balance, LE strengthening, breathing, and VOR exercises to decrease symptoms and improve balance by 08/31/21. 07/03/21: Pt is performing band exercises for legs, back cash applications clerk self-massage, breathing, walking the dog, pelvic realignment exercises and balance exercises in the hallway. She is doing exercises 1-2x/wk. 08/30-pt walking and doing exercises at home plan to update and progress program 11/28-advancing based on cont deficits LTG Duration 01/28/22 3 Security Guards Dispatcher Goal (LTG) Pt will present with improved left shoulder flexion, left hip flexion, left knee flexion and left great toe extension to 5/5 to improve balance by . 07/03/21: Left shoulder flexion is 5/5, left hip flexion 4+/5, knee flexion 5/5, great toe extension 5/5. 06/02/21: Left shoulder flexion is 4/5; left hip flexion 4/5; left knee flexion 4/5; left great toe extension 5/5. 08/30-still very limited 11/28-change goal to at least 4 +/5 all LE MMT as UE MMT is WNL LTG Duration 02/27 2 Long-Term Goal (LTG) Pt will report a 70% improvement in dizziness and headache symptoms to allow return to PLOF by 08/31/21. 07/03/21: Pt reports flare-up of symptoms since the snow. 03/29/21: Pt reports that in the recent weeks, her dizziness has gotten worse. It gets worse when she does not have PT for a long time and when she is playin with her down. Squatting too fast and sudden head movements are provocative. 08/30-pt reports no big change but does feel better fro the rest of the day after last session 11/28-dizziness has improved about 50%; ETIENNE about 75% improvement since start of PT LTG Duration 02/27 1 Security Guards Dispatcher Goal (LTG) Pt will perform WNLs on FGA to decrease fall risk and improve balance by 08/31/21. 07/03/21: FGA score is slightly improved with score 18/30 and pt reporting gait with head turns up and down and walking with eyes closed being the most symptomatic. Tandem gait is still not very possible. Turning at the end of the hallway required her to reach out to catch her balance. 08/30- 11/28- improved LTG Duration 02/27 Assessment Summary Assessment Pt is progressing w/exercises and balance work along w/dec symptoms overall of dizziness and ETIENNE. She does still report symptoms and show dec balance but she does not fall over as much when challeged w/static balance and has more appropriate balance responses. She would benefit from cont PT to cont address these dficits. Physical Therapy Plan Frequency and Duration Frequency of Treatment 1x/Week Duration of Treatment 3 months Plan of Care Start Date 11/28/21 Plan of Care End Date 02/27/22 Therapeutic Interventions Therapeutic Interventions Balance Training,Canalithic Repositioning,Coordination Training,Gait Training,Home Exercise Program,Joint Mobilizations,Manual Therapy, Neuromuscular Re-education, Patient/Caregiver Education, Self-Care/Home Management, Sensory Integration,Soft Tissue Mobilization,Taping, Therapeutic Activities, Therapeutic Exercises, Vestibular Rehabilitation Modalities Cold Pack/Ice Massage,Electric Stimulation,Hot Packs, Ultrasound Next Visit Focus/Plan Next Note Type Treatment Note Next Visit Plan walk w/pt with her dog w/ obstacles outside and assess her throw w/dog Plan of Care Dates Plan of Care Start Date 11/28/21 Plan of Care End Date 02/27/22 Electronically Signed by: Tanya Dhaliwal, PT 11/28/21 0816 If you are in agreement with this Plan of Care, please return a signed and dated copy. I have reviewed this Plan of Care and certify that the skilled therapy services above are required to meet the patient?s needs. Physician Signature Date Printed Name and Credentials Clinical Instructor Signature Printed Name and Credentials
--- NOTE | 2021-12-05 18:16 | PT.OTN ---
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) Headache, unspecified (12/05/21) Weakness (12/05/21) Physical Therapy Treatment Note PT-OP-A Visit Information Start: 08/22/20 07:37 Freq: Status: Active Protocol: Document 12/05/21 13:45 [facility] (Rec: 12/05/21 13:50 [facility] [id number]) Out-Patient Physical Therapy Visit Information Visit Information Visit Type Treatment Note Visit Start Time 13:00 Visit Stop Time 13:40 Total Visit Minutes 40 Visit Number Number of JAMB CUTTER Visits 0 PT-OP-B Current Condition Start: 08/22/20 07:37 Freq: Status: Active Protocol: Document 08/23/20 12:13 MB (Rec: 08/23/20 13:04 MB [id number]) Current Condition History of Current Condition Onset Date Surgery 07/27/20 Current Complaints Dizziness, light-headedness, ETIENNE and left leg pain and imbalance History of Current Condition 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 Pt had fall and concussion then as passed out. In PMH, pt writes back pain, superficial blood clot right LE, ulcers. Current complaints include: dizziness when active (walking and movements of neck), decreased processing words, headaches managed by medications, trouble opening right side of jaw post-op, neck pain and stiffness. Pt denies falls since surgery. Pt is wearing an ice hat. Pt reports pain right side of head, left jaw and left thigh. ETIENNE pain gets up to 5/10 with medication. Her neck pain is 4 /10. Left leg pain gets up to 7/10. She reports left leg pain as deep and shooting. Pt reports pain with walking on left leg. Pt reports that her left leg feels weak. The Cymbalta helps with nerve pain . Pt reports that her right eye brown does not yet move after surgery and the right side of her head is swollen. Mother states that pt still does not have any appetite. Treatment Goals Patient/Caregiver Goals Decrease pain, increase balance and leg strength. PT-OP-C Subjective Start: 08/22/20 07:37 Freq: Status: Active Protocol: Document 12/05/21 13:45 [facility] (Rec: 12/05/21 13:50 [facility] [id number]) OP-PT Subjective Patient Comments Patient Comments pt brings dog hoping to work on navigation w/o pain w/dog PT-OP-D Balance Start: 08/22/20 07:37 Freq: Status: Active Protocol: Document 08/23/20 12:13 MB (Rec: 08/23/20 14:14 MB [id number]) Balance Tests Romberg Romberg LOB to the right and then the left, socks and no shoes PT-OP-E Functional Tests Start: 08/30/21 14:38 Freq: Status: Active Protocol: Document 11/28/21 13:00 [facility] (Rec: 11/28/21 13:50 [facility] [id number]) Functional Tests 6 Minute Walk Test Distance 1481ft Device Used none Functional Gait Assessment Score 19 PT-OP-G Mobility & Gait Start: 08/22/20 07:37 Freq: Status: Active Protocol: Document 08/23/20 12:13 MB (Rec: 08/23/20 14:14 MB [id number]) OP Gait Assessment Gait Gait Assistance Required: Independent Distance (Feet) 50 Able to Maintain Weight Bearing Status Yes During Gait Assistive Devices Assistive Device None Orthotic/Prosthetic Devices or Brace: No Gait Deviations General Gait Pattern Decreased Stride Length Factors Limiting Gait Function Factors Limiting Gait Function Decreased Strength,Pain,Poor Balance Comments Gait Comments Pt favors the left leg, looks down at the floor, presents with hesitancy with gait PT-OP-H Neuro Start: 08/22/20 07:37 Freq: Status: Active Protocol: Document 08/23/20 12:13 MB (Rec: 08/23/20 14:14 MB [id number]) Sensation Evaluation Comments Summary Comments Pt reports numbness right temporal area and eye brow Coordination Evaluation Upper Extremity Tests Right Finger to Nose Test Normal Performance Pronation/Supination Test Normal Performance Left Finger to Nose Test Normal Performance Pronation/Supination Test Minimal Impairment Comments Coordination Comments Right toe tapping over opposite foot normal x5 reps, rapid and accurate. Slow with left toe tapping over right foot and inaccurate, given for exercise for home: 10 reps every hour when sitting Vital Signs Pulse 1 Pulse at Rest (bpm) 77 Pulse Assessment Method Cuff Blood Pressure Sitting Blood Pressure (90/60-120/80 mmHg) 132/90 H Blood Pressure Source Automatic Cuff,Right Upper Extremity Comments Vital Signs Comments Doctor note for BP written under precautions, pt is in recommended range today PT-OP-K Range of Motion Start: 08/22/20 07:37 Freq: Status: Active Protocol: Document 08/23/20 12:13 MB (Rec: 08/23/20 14:14 MB [id number]) TMJ Range of Motion Comments Comments R eyebrow does not raise, can minimally lower. Pt presents with mild right jaw deviation and minimal dropping of left side of mouth with smile Toe Range of Motion Toes ROM Limitations Comments Decreased active left great toe extension compared to the right PT-OP-M Strength Start: 08/22/20 07:37 Freq: Status: Active Protocol: Document 11/28/21 13:00 [facility] (Rec: 11/28/21 13:50 [facility] [id number]) Shoulder Strength Shoulder Manual Muscle Testing Left Flexion 5 Normal Abduction (C5) 5 Normal Adduction 5 Normal Right Flexion 5 Normal Abduction (C5) 5 Normal Hip Strength Hip Manual Muscle Testing Left Flexion (L2) 4- Good- Extension (S1) 4 Good Abduction 3 Fair Adduction 3+ Fair+ External Rotation 4- Good- Internal Rotation 4- Good- Right Flexion (L2) 4+ Good+ Extension (S1) 4+ Good+ Abduction 4- Good- Adduction 5 Normal External Rotation 4+ Good+ Internal Rotation 4+ Good+ Knee Strength Knee Manual Muscle Testing Left Flexion (S2) 4+ Good+ Extension (L3) 5 Normal Comments Pt sitting Right Flexion (S2) 5 Normal Extension (L3) 5 Normal Comments Pt sitting Ankle/Foot Strength Ankle and Foot Manual Muscle Testing Left Dorsiflexion (L4) 5 Normal Plantarflexion (S1) 5 Normal Comments 20 heel raises Right Dorsiflexion (L4) 5 Normal Plantarflexion (S1) 5 Normal Comments 20 heel raises Toe Strength Toe Manual Muscle Testing Great Toe Extension 5 Normal Comments L Right Great Toe Extension 4+ Good+ PT-OP-O Vestibular Start: 08/22/20 07:37 Freq: Status: Active Protocol: Document 08/23/20 12:13 MB (Rec: 08/23/20 14:14 MB [id number]) Vestibular Assessment Visual Testing Smooth Pursuits Horizontal Normal Smooth Pursuits Vertical Normal Gaze Evoked Nystagmus With Fixation Negative Convergence Test R impaired Spontaneous Nystagmus Negative Comments Vestibular Comments Left pupil with decreased reactivity to pen light but very minimal PT-OP-Q Treatments Start: 08/22/20 07:37 Freq: Status: Active Protocol: Document 12/05/21 13:45 [facility] (Rec: 12/05/21 13:50 [facility] [id number]) Therapeutic Exercises Other Exercises tracking Other Exercise Name up/down w/eyes on finger comfortable range Reps/Minutes 5 Therapeutic Activity Therapeutic Activity squat Reps/Minutes 12 Comments w/focus on neutral spine & no neck flex and/or ext posture Comments 1. post tilt and dep of ribcage w/cervical retract set up mult times 2. rhythmic initiation to LUE push/pulls in all planes at 90 deg. & to trunk in all planes 3. posture set w/fwd lean into walk Gait Training Gait Activity Dog training/gait training Comments 1. working on push off w/gait w/maintaining neutral w/& w/o dog 2. head turns w/dog walking - loss of balance w/vertical head turns today PT-OP-T Assessment and Plan Start: 08/22/20 07:37 Freq: Status: Active Protocol: Document 12/05/21 13:45 [facility] (Rec: 12/05/21 13:50 [facility] [id number]) Physical Therapy Assessment Goals 5 [employer]mostatic Controls Supervisor Goal (LTG) Pt will gait train at least 1650 feet in 6 minutes without AD and no LOB or dragging finger on the wall for steadying assist by 08/31/21. 07/03/21: Pt gait trains 1654 feet in 6 minutes with occ left index finger dragging along wall to assist with balance with anti-clockwise gait. 06/02/21: Pt gait trains 1541 feet in 6 minutes, walking anti-clockwise. Twice, she rubs left hand on corner when turning to the left in the hallway. She has increased arms out and right arm swing and left LE does not move as well motor-viera compared to the right and requires effort to clear foot each time. Pt is wearing short wellingtons and this may cause exaggeration of lifting foot, requiring more effort which shows as such on the left. 03/29/21: Pt gait trains 1531 feet in 6 minutes, which is 3 feet further than when last tested in October 202008/30-14311/28-148 LTG Duration 02/27 4 Thermostatic Controls Supervisor Goal (LTG) Pt will perform progressive HEP with I including postural, flexibility, balance, LE strengthening, breathing, and VOR exercises to decrease symptoms and improve balance by 08/31/21. 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 She is doing exercises 1-2x/wk. 08/30-pt walking and doing exercises at home plan to update and progress program 11/28-advancing based on cont deficits LTG Duration 01/28/22 3 Thermostatic Controls Supervisor Goal (LTG) Pt will present with improved left shoulder flexion, left hip flexion, left knee flexion and left great toe extension to 5/5 to improve balance by . 07/03/21: Left shoulder flexion is 5/5, left hip flexion 4+/5, knee flexion 5/5, great toe extension 5/5. 06/02/21: Left shoulder flexion is 4/5; left hip flexion 4/5; left knee flexion 4/5; left great toe extension 5/5. 08/30-still very limited 11/28-change goal to at least 4 +/5 all LE MMT as UE MMT is WNL LTG Duration 02/27 2 [facility] Goal (LTG) Pt will report a 70% improvement in dizziness and headache symptoms to allow return to PLOF by 08/31/21. 07/03/21: Pt reports flare-up of symptoms since the snow. 03/29/21: Pt reports that in the recent weeks, her dizziness has gotten worse. It gets worse when she does not have PT for a long time and when she is playin with her down. Squatting too fast and sudden head movements are provocative. 08/30-pt reports no big change but does feel better fro the rest of the day after last session 11/28-dizziness has improved about 50%; ETIENNE about 75% improvement since start of PT LTG Duration 02/27 1 [facility] Goal (LTG) Pt will perform WNLs on FGA to decrease fall risk and improve balance by 08/31/21. 07/03/21: FGA score is slightly improved with score 18/30 and pt reporting gait with head turns up and down and walking with eyes closed being the most symptomatic. Tandem gait is still not very possible. Turning at the end of the hallway required her to reach out to catch her balance. 08/30- 11/28- improved LTG Duration 02/27 Assessment Summary Assessment Pt did well with postural corrections but required mult reps to get set up into those positions. She did well with squat w/good posture after a lot of cueing for neutral back and neck was performed. Pt was able to walk well w/dog but does show tendency to elevate scap in response and does not get good connection w /UE/LEs w/pulling Physical Therapy Plan Frequency and Duration Frequency of Treatment 1x/Week Duration of Treatment 3 months Plan of Care Start Date 11/28/21 Plan of Care End Date 02/27/22 Next Visit Focus/Plan Next Note Type Treatment Note Next Visit Plan ribcage dep for scap dep R, IR mob R, mob for cervical ext, mass flex, resisted crawl
--- NOTE | 2021-12-11 13:50 | PT.OTN ---
Current Diagnoses Moyamoya disease (12/11/21) Headache, unspecified (12/11/21) Weakness (12/11/21) Physical Therapy Treatment Note PT-OP-A Visit Information Start: 08/22/20 07:37 Freq: Status: Active Protocol: Document 12/11/21 13:00 [facility] (Rec: 12/11/21 13:50 [facility] [id number]) Out-Patient Physical Therapy Visit Information Visit Information Visit Type Treatment Note Visit Start Time 13:00 Visit Stop Time 13:43 Total Visit Minutes 43 Visit Number Number of OCEAN [employer]ARD Visits 0 PT-OP-B Current Condition Start: 08/22/20 07:37 Freq: Status: Active Protocol: Document 08/23/20 12:13 MB (Rec: 08/23/20 13:04 MB [id number]) Current Condition History of Current Condition Onset Date Surgery 07/27/20 Current Complaints Dizziness, light-headedness, ETIENNE and left leg pain and imbalance History of Current Condition 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 Pt had fall and concussion then as passed out. In PMH, pt writes back pain, superficial blood clot right LE, ulcers. Current complaints include: dizziness when active (walking and movements of neck), decreased processing words, headaches managed by medications, trouble opening right side of jaw post-op, neck pain and stiffness. Pt denies falls since surgery. Pt is wearing an ice hat. Pt reports pain right side of head, left jaw and left thigh. ETIENNE pain gets up to 5/10 with medication. Her neck pain is 4 /10. Left leg pain gets up to 7/10. She reports left leg pain as deep and shooting. Pt reports pain with walking on left leg. Pt reports that her left leg feels weak. The Cymbalta helps with nerve pain . Pt reports that her right eye brown does not yet move after surgery and the right side of her head is swollen. Mother states that pt still does not have any appetite. Treatment Goals Patient/Caregiver Goals Decrease pain, increase balance and leg strength. PT-OP-C Subjective Start: 08/22/20 07:37 Freq: Status: Active Protocol: Document 12/11/21 13:00 [facility] (Rec: 12/11/21 13:50 [facility] [id number]) OP-PT Subjective Patient Comments Patient Comments Pt notes the squat technique helped PT-OP-D Balance Start: 08/22/20 07:37 Freq: Status: Active Protocol: Document 08/23/20 12:13 MB (Rec: 08/23/20 14:14 MB [id number]) Balance Tests Romberg Romberg LOB to the right and then the left, socks and no shoes PT-OP-E Functional Tests Start: 08/30/21 14:38 Freq: Status: Active Protocol: Document 11/28/21 13:00 [facility] (Rec: 11/28/21 13:50 [facility] [id number]) Functional Tests 6 Minute Walk Test Distance 1481ft Device Used none Functional Gait Assessment Score 19 PT-OP-G Mobility & Gait Start: 08/22/20 07:37 Freq: Status: Active Protocol: Document 08/23/20 12:13 MB (Rec: 08/23/20 14:14 MB [id number]) OP Gait Assessment Gait Gait Assistance Required: Independent Distance (Feet) 50 Able to Maintain Weight Bearing Status Yes During Gait Assistive Devices Assistive Device None Orthotic/Prosthetic Devices or Brace: No Gait Deviations General Gait Pattern Decreased Stride Length Factors Limiting Gait Function Factors Limiting Gait Function Decreased Strength,Pain,Poor Balance Comments Gait Comments Pt favors the left leg, looks down at the floor, presents with hesitancy with gait PT-OP-H Neuro Start: 08/22/20 07:37 Freq: Status: Active Protocol: Document 08/23/20 12:13 MB (Rec: 08/23/20 14:14 MB [id number]) Sensation Evaluation Comments Summary Comments Pt reports numbness right temporal area and eye brow Coordination Evaluation Upper Extremity Tests Right Finger to Nose Test Normal Performance Pronation/Supination Test Normal Performance Left Finger to Nose Test Normal Performance Pronation/Supination Test Minimal Impairment Comments Coordination Comments Right toe tapping over opposite foot normal x5 reps, rapid and accurate. Slow with left toe tapping over right foot and inaccurate, given for exercise for home: 10 reps every hour when sitting Vital Signs Pulse 1 Pulse at Rest (bpm) 77 Pulse Assessment Method Cuff Blood Pressure Sitting Blood Pressure (90/60-120/80 mmHg) 132/90 H Blood Pressure Source Automatic Cuff,Right Upper Extremity Comments Vital Signs Comments Doctor note for BP written under precautions, pt is in recommended range today PT-OP-K Range of Motion Start: 08/22/20 07:37 Freq: Status: Active Protocol: Document 08/23/20 12:13 MB (Rec: 08/23/20 14:14 MB [id number]) TMJ Range of Motion Comments Comments R eyebrow does not raise, can minimally lower. Pt presents with mild right jaw deviation and minimal dropping of left side of mouth with smile Toe Range of Motion Toes ROM Limitations Comments Decreased active left great toe extension compared to the right PT-OP-M Strength Start: 08/22/20 07:37 Freq: Status: Active Protocol: Document 11/28/21 13:00 [facility] (Rec: 11/28/21 13:50 [facility] [id number]) Shoulder Strength Shoulder Manual Muscle Testing Left Flexion 5 Normal Abduction (C5) 5 Normal Adduction 5 Normal Right Flexion 5 Normal Abduction (C5) 5 Normal Hip Strength Hip Manual Muscle Testing Left Flexion (L2) 4- Good- Extension (S1) 4 Good Abduction 3 Fair Adduction 3+ Fair+ External Rotation 4- Good- Internal Rotation 4- Good- Right Flexion (L2) 4+ Good+ Extension (S1) 4+ Good+ Abduction 4- Good- Adduction 5 Normal External Rotation 4+ Good+ Internal Rotation 4+ Good+ Knee Strength Knee Manual Muscle Testing Left Flexion (S2) 4+ Good+ Extension (L3) 5 Normal Comments Pt sitting Right Flexion (S2) 5 Normal Extension (L3) 5 Normal Comments Pt sitting Ankle/Foot Strength Ankle and Foot Manual Muscle Testing Left Dorsiflexion (L4) 5 Normal Plantarflexion (S1) 5 Normal Comments 20 heel raises Right Dorsiflexion (L4) 5 Normal Plantarflexion (S1) 5 Normal Comments 20 heel raises Toe Strength Toe Manual Muscle Testing Great Toe Extension 5 Normal Comments L Right Great Toe Extension 4+ Good+ PT-OP-O Vestibular Start: 08/22/20 07:37 Freq: Status: Active Protocol: Document 08/23/20 12:13 MB (Rec: 08/23/20 14:14 MB [id number]) Vestibular Assessment Visual Testing Smooth Pursuits Horizontal Normal Smooth Pursuits Vertical Normal Gaze Evoked Nystagmus With Fixation Negative Convergence Test R impaired Spontaneous Nystagmus Negative Comments Vestibular Comments Left pupil with decreased reactivity to pen light but very minimal PT-OP-Q Treatments Start: 08/22/20 07:37 Freq: Status: Active Protocol: Document 12/11/21 13:00 [facility] (Rec: 12/11/21 13:50 [facility] [id number]) Manual Therapy Treatment Soft Tissue Mobilization cervical Body Location R UT, LS Mobilization Type Rolling,Strumming,Sustained Pressure Intensity/Depth Moderate Body Position Sidelying Joint Mobilizations ribs Comments 1.Rib R 5-7 med FM & UAP FM R 2. R 1st caudal FM Neuro Re-Education Treatment Other Activities crawl Comments LE resisted crawl x3 min PNF Comments 1. ant dep sustained hold scaps B & COI 2. ant elevation pelvis rhythimic initiation & sustained holds B 3. mass flex B w/sustained holds & COI PT-OP-T Assessment and Plan Start: 08/22/20 07:37 Freq: Status: Active Protocol: Document 12/11/21 13:00 [facility] (Rec: 12/11/21 13:50 [facility] [id number]) Physical Therapy Assessment Goals 5 Supervisor White [employer] Goal (LTG) Pt will gait train at least 1650 feet in 6 minutes without AD and no LOB or dragging finger on the wall for steadying assist by 08/31/21. 07/03/21: Pt gait trains 1654 feet in 6 minutes with occ left index finger dragging along wall to assist with balance with anti-clockwise gait. 06/02/21: Pt gait trains 1541 feet in 6 minutes, walking anti-clockwise. Twice, she rubs left hand on corner when turning to the left in the hallway. She has increased arms out and right arm swing and left LE does not move as well motor-viera compared to the right and requires effort to clear foot each time. Pt is wearing short wellingtons and this may cause exaggeration of lifting foot, requiring more effort which shows as such on the left. 03/29/21: Pt gait trains 1531 feet in 6 minutes, which is 3 feet further than when last tested in October 202008/30-14311/28- LTG Duration 02/27 4 Supervisor White [employer] Goal (LTG) Pt will perform progressive HEP with I including postural, flexibility, balance, LE strengthening, breathing, and VOR exercises to decrease symptoms and improve balance by 08/31/21. 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 She is doing exercises 1-2x/wk. 08/30-pt walking and doing exercises at home plan to update and progress program 11/28-advancing based on cont deficits LTG Duration 01/28/22 3 Skilled Nursing Goal (LTG) Pt will present with improved left shoulder flexion, left hip flexion, left knee flexion and left great toe extension to 5/5 to improve balance by . 07/03/21: Left shoulder flexion is 5/5, left hip flexion 4+/5, knee flexion 5/5, great toe extension 5/5. 06/02/21: Left shoulder flexion is 4/5; left hip flexion 4/5; left knee flexion 4/5; left great toe extension 5/5. 08/30-still very limited 11/28-change goal to at least 4 +/5 all LE MMT as UE MMT is WNL LTG Duration 02/27 2 Skilled Nursing Goal (LTG) Pt will report a 70% improvement in dizziness and headache symptoms to allow return to PLOF by 08/31/21. 07/03/21: Pt reports flare-up of symptoms since the snow. 03/29/21: Pt reports that in the recent weeks, her dizziness has gotten worse. It gets worse when she does not have PT for a long time and when she is playin with her down. Squatting too fast and sudden head movements are provocative. 08/30-pt reports no big change but does feel better fro the rest of the day after last session 11/28-dizziness has improved about 50%; ETIENNE about 75% improvement since start of PT LTG Duration 02/27 1 Supervisor White [employer] Goal (LTG) Pt will perform WNLs on FGA to decrease fall risk and improve balance by 08/31/21. 07/03/21: FGA score is slightly improved with score and pt reporting gait with head turns up and down and walking with eyes closed being the most symptomatic. Tandem gait is still not very possible. Turning at the end of the hallway required her to reach out to catch her balance. 08/30- 11/28- improved LTG Duration 02/27 Assessment Summary Assessment Pt had improved SB, and improved scap motion into depression now. She did improve w/throw to be able to have less scap elevation. Much difficulty w/resisted PNF Physical Therapy Plan Frequency and Duration Frequency of Treatment 1x/Week Duration of Treatment 3 months Plan of Care Start Date 11/28/21 Plan of Care End Date 02/27/22 Next Visit Focus/Plan Next Note Type Treatment Note Next Visit Plan PNF L scap region further, mob for cervical ext, cont to work resisted crawl & roll
--- NOTE | 2021-12-19 18:16 | PT.OTN ---
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 (Rec: 12/19/21 18:16 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 Pt had fall and concussion then as passed out. In PMH, pt writes back pain, superficial blood clot right LE, ulcers. Current complaints include: dizziness when active (walking and movements of neck), decreased processing words, headaches managed by medications, trouble opening right side of jaw post-op, neck pain and stiffness. Pt denies falls since surgery. Pt is wearing an ice hat. Pt reports pain right side of head, left jaw and left thigh. ETIENNE pain gets up to 5/10 with medication. Her neck pain is 4 /10. Left leg pain gets up to 7/10. She reports left leg pain as deep and shooting. Pt reports pain with walking on left leg. Pt reports that her left leg feels weak. The Cymbalta helps with nerve pain . Pt reports that her right eye brown does not yet move after surgery and the right side of her head is swollen. Mother states that pt still does not have any appetite. Treatment Goals Patient/Caregiver Goals Decrease pain, increase balance and leg strength. PT-OP-C Subjective Start: 08/22/20 07:37 Freq: Status: Active Protocol: Document 12/19/21 13:01 [facility] (Rec: 12/19/21 18:16 [facility] [id number]) OP-PT Subjective Patient Comments Patient Comments Pt reports neck ext still painful and makes her dizzy PT-OP-D Balance Start: 08/22/20 07:37 Freq: Status: Active Protocol: Document 08/23/20 12:13 MB (Rec: 08/23/20 14:14 MB [id number]) Balance Tests Romberg Romberg LOB to the right and then the left, socks and no shoes PT-OP-E Functional Tests Start: 08/30/21 14:38 Freq: Status: Active Protocol: Document 11/28/21 13:00 [facility] (Rec: 11/28/21 13:50 [facility] [id number]) Functional Tests 6 Minute Walk Test Distance 1481ft Device Used none Functional Gait Assessment Score 19 PT-OP-G Mobility & Gait Start: 08/22/20 07:37 Freq: Status: Active Protocol: Document 08/23/20 12:13 MB (Rec: 08/23/20 14:14 MB [id number]) OP Gait Assessment Gait Gait Assistance Required: Independent Distance (Feet) 50 Able to Maintain Weight Bearing Status Yes During Gait Assistive Devices Assistive Device None Orthotic/Prosthetic Devices or Brace: No Gait Deviations General Gait Pattern Decreased Stride Length Factors Limiting Gait Function Factors Limiting Gait Function Decreased Strength,Pain,Poor Balance Comments Gait Comments Pt favors the left leg, looks down at the floor, presents with hesitancy with gait PT-OP-H Neuro Start: 08/22/20 07:37 Freq: Status: Active Protocol: Document 08/23/20 12:13 MB (Rec: 08/23/20 14:14 MB [id number]) Sensation Evaluation Comments Summary Comments Pt reports numbness right temporal area and eye brow Coordination Evaluation Upper Extremity Tests Right Finger to Nose Test Normal Performance Pronation/Supination Test Normal Performance Left Finger to Nose Test Normal Performance Pronation/Supination Test Minimal Impairment Comments Coordination Comments Right toe tapping over opposite foot normal x5 reps, rapid and accurate. Slow with left toe tapping over right foot and inaccurate, given for exercise for home: 10 reps every hour when sitting Vital Signs Pulse 1 Pulse at Rest (bpm) 77 Pulse Assessment Method Cuff Blood Pressure Sitting Blood Pressure (90/60-120/80 mmHg) 132/90 H Blood Pressure Source Automatic Cuff,Right Upper Extremity Comments Vital Signs Comments Doctor note for BP written under precautions, pt is in recommended range today PT-OP-K Range of Motion Start: 08/22/20 07:37 Freq: Status: Active Protocol: Document 08/23/20 12:13 MB (Rec: 08/23/20 14:14 MB [id number]) TMJ Range of Motion Comments Comments R eyebrow does not raise, can minimally lower. Pt presents with mild right jaw deviation and minimal dropping of left side of mouth with smile Toe Range of Motion Toes ROM Limitations Comments Decreased active left great toe extension compared to the right PT-OP-M Strength Start: 08/22/20 07:37 Freq: Status: Active Protocol: Document 11/28/21 13:00 [facility] (Rec: 11/28/21 13:50 [facility] [id number]) Shoulder Strength Shoulder Manual Muscle Testing Left Flexion 5 Normal Abduction (C5) 5 Normal Adduction 5 Normal Right Flexion 5 Normal Abduction (C5) 5 Normal Hip Strength Hip Manual Muscle Testing Left Flexion (L2) 4- Good- Extension (S1) 4 Good Abduction 3 Fair Adduction 3+ Fair+ External Rotation 4- Good- Internal Rotation 4- Good- Right Flexion (L2) 4+ Good+ Extension (S1) 4+ Good+ Abduction 4- Good- Adduction 5 Normal External Rotation 4+ Good+ Internal Rotation 4+ Good+ Knee Strength Knee Manual Muscle Testing Left Flexion (S2) 4+ Good+ Extension (L3) 5 Normal Comments Pt sitting Right Flexion (S2) 5 Normal Extension (L3) 5 Normal Comments Pt sitting Ankle/Foot Strength Ankle and Foot Manual Muscle Testing Left Dorsiflexion (L4) 5 Normal Plantarflexion (S1) 5 Normal Comments 20 heel raises Right Dorsiflexion (L4) 5 Normal Plantarflexion (S1) 5 Normal Comments 20 heel raises Toe Strength Toe Manual Muscle Testing Great Toe Extension 5 Normal Comments L Right Great Toe Extension 4+ Good+ PT-OP-O Vestibular Start: 08/22/20 07:37 Freq: Status: Active Protocol: Document 08/23/20 12:13 MB (Rec: 08/23/20 14:14 MB [id number]) Vestibular Assessment Visual Testing Smooth Pursuits Horizontal Normal Smooth Pursuits Vertical Normal Gaze Evoked Nystagmus With Fixation Negative Convergence Test R impaired Spontaneous Nystagmus Negative Comments Vestibular Comments Left pupil with decreased reactivity to pen light but very minimal PT-OP-Q Treatments Start: 08/22/20 07:37 Freq: Status: Active Protocol: Document 12/19/21 13:01 [facility] (Rec: 12/19/21 18:16 [facility] [id number]) Manual Therapy Treatment Soft Tissue Mobilization cervical Body Location along vagus nerve ( individually) B Mobilization Type Sustained Pressure Comments w/passive neck ext Joint Mobilizations thoracic Comments 1. T1-3 UPA FM seated 2. T1-3 transverse L FM 3. T7-9 PA FM in cat/camel ribs Comments 1.L general caudal FM w/ passive neck ext 2. L rib 4 &8 med FM 3. R rib 6& 11 med FM Neuro Re-Education Treatment Other Activities PNF Comments 1. ant dep sustained hold scaps L & COI 2. ant elevation pelvis rhythimic initiation & sustained holds L 3. mass flex L w/sustained holds & COI PT-OP-T Assessment and Plan Start: 08/22/20 07:37 Freq: Status: Active Protocol: Document 12/19/21 13:01 [facility] (Rec: 12/19/21 18:16 [facility] [id number]) Physical Therapy Assessment Goals 5 Furnishings Conservator Goal (LTG) Pt will gait train at least 1650 feet in 6 minutes without AD and no LOB or dragging finger on the wall for steadying assist by 08/31/21. 07/03/21: Pt gait trains 1654 feet in 6 minutes with occ left index finger dragging along wall to assist with balance with anti-clockwise gait. 06/02/21: Pt gait trains 1541 feet in 6 minutes, walking anti-clockwise. Twice, she rubs left hand on corner when turning to the left in the hallway. She has increased arms out and right arm swing and left LE does not move as well motor-viera compared to the right and requires effort to clear foot each time. Pt is wearing short wellingtons and this may cause exaggeration of lifting foot, requiring more effort which shows as such on the left. 03/29/21: Pt gait trains 1531 feet in 6 minutes, which is 3 feet further than when last tested in October 202008/30-143ft 11/28-148 LTG Duration 02/27 4 Jail Goal (LTG) Pt will perform progressive HEP with I including postural, flexibility, balance, LE strengthening, breathing, and VOR exercises to decrease symptoms and improve balance by 08/31/21. 07/03/21: Pt is performing band exercises for legs, back financial services agent self-massage, breathing, walking the dog, pelvic realignment exercises and balance exercises in the hallway. She is doing exercises 1-2x/wk. 08/30-pt walking and doing exercises at home plan to update and progress program 11/28-advancing based on cont deficits LTG Duration 01/28/22 3 Furnishings Conservator Goal (LTG) Pt will present with improved left shoulder flexion, left hip flexion, left knee flexion and left great toe extension to 5/5 to improve balance by . 07/03/21: Left shoulder flexion is 5/5, left hip flexion 4+/5, knee flexion 5/5, great toe extension 5/5. 06/02/21: Left shoulder flexion is 4/5; left hip flexion 4/5; left knee flexion 4/5; left great toe extension 5/5. 08/30-still very limited 11/28-change goal to at least 4 +/5 all LE MMT as UE MMT is WNL LTG Duration 02/27 2 Furnishings Conservator Goal (LTG) Pt will report a 70% improvement in dizziness and headache symptoms to allow return to PLOF by 08/31/21. 07/03/21: Pt reports flare-up of symptoms since the snow. 03/29/21: Pt reports that in the recent weeks, her dizziness has gotten worse. It gets worse when she does not have PT for a long time and when she is playin with her down. Squatting too fast and sudden head movements are provocative. 08/30-pt reports no big change but does feel better fro the rest of the day after last session 11/28-dizziness has improved about 50%; ETIENNE about 75% improvement since start of PT LTG Duration 02/27 1 Furnishings Conservator Goal (LTG) Pt will perform WNLs on FGA to decrease fall risk and improve balance by 08/31/21. 07/03/21: FGA score is slightly improved with score and pt reporting gait with head turns up and down and walking with eyes closed being the most symptomatic. Tandem gait is still not very possible. Turning at the end of the hallway required her to reach out to catch her balance. 08/30- 11/28- improved LTG Duration 02/27 Assessment Summary Assessment Pt had improved SB B with manual treatment and inc ext w /less dizziness and dec pinching. She improved w/L sided engagement w/PNF. Physical Therapy Plan Frequency and Duration Frequency of Treatment 1x/Week Duration of Treatment 3 months Plan of Care Start Date 11/28/21 Plan of Care End Date 02/27/22 Next Visit Focus/Plan Next Note Type Treatment Note Next Visit Plan cont to work PNF
--- NOTE | 2022-01-25 18:05 | PT.OTN ---
Current Diagnoses Moyamoya disease (01/25/22) Headache, unspecified (01/25/22) Weakness (01/25/22) Physical Therapy Treatment Note PT-OP-A Visit Information Start: 08/22/20 07:37 Freq: Status: Active Protocol: Document 01/25/22 15:22 [facility] (Rec: 01/25/22 18:05 [facility] [id number]) Out-Patient Physical Therapy Visit Information Visit Information Visit Type Treatment Note Visit Start Time 15:21 Visit Stop Time 16:00 Total Visit Minutes 39 Visit Number Number of FRUIT OR NUT FARMER Visits 0 PT-OP-B Current Condition Start: 08/22/20 07:37 Freq: Status: Active Protocol: Document 08/23/20 12:13 MB (Rec: 08/23/20 13:04 MB [id number]) Current Condition History of Current Condition Onset Date Surgery 07/27/20 Current Complaints Dizziness, light-headedness, ETIENNE and left leg pain and imbalance History of Current Condition 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 Pt had fall and concussion then as passed out. In PMH, pt writes back pain, superficial blood clot right LE, ulcers. Current complaints include: dizziness when active (walking and movements of neck), decreased processing words, headaches managed by medications, trouble opening right side of jaw post-op, neck pain and stiffness. Pt denies falls since surgery. Pt is wearing an ice hat. Pt reports pain right side of head, left jaw and left thigh. ETIENNE pain gets up to 5/10 with medication. Her neck pain is 4 /10. Left leg pain gets up to 7/10. She reports left leg pain as deep and shooting. Pt reports pain with walking on left leg. Pt reports that her left leg feels weak. The Cymbalta helps with nerve pain . Pt reports that her right eye brown does not yet move after surgery and the right side of her head is swollen. Mother states that pt still does not have any appetite. Treatment Goals Patient/Caregiver Goals Decrease pain, increase balance and leg strength. PT-OP-C Subjective Start: 08/22/20 07:37 Freq: Status: Active Protocol: Document 01/25/22 15:22 [facility] (Rec: 01/25/22 18:05 [facility] [id number]) OP-PT Subjective Patient Comments Patient Comments Pt reports Drs think she has POTs and is going to be tested Feb 14. She is working w/ cardio and getting another halter monitor for 1-2 weeks but awaiting insurance approval. Pt is noting feeling worse lately w/more lightheadness and dizziness and head tightness. She has been challenging her balance more. PT-OP-D Balance Start: 08/22/20 07:37 Freq: Status: Active Protocol: Document 08/23/20 12:13 MB (Rec: 08/23/20 14:14 MB [id number]) Balance Tests Romberg Romberg LOB to the right and then the left, socks and no shoes PT-OP-E Functional Tests Start: 08/30/21 14:38 Freq: Status: Active Protocol: Document 11/28/21 13:00 [facility] (Rec: 11/28/21 13:50 [facility] [id number]) Functional Tests 6 Minute Walk Test Distance 1481ft Device Used none Functional Gait Assessment Score 19 PT-OP-G Mobility & Gait Start: 08/22/20 07:37 Freq: Status: Active Protocol: Document 08/23/20 12:13 MB (Rec: 08/23/20 14:14 MB [id number]) OP Gait Assessment Gait Gait Assistance Required: Independent Distance (Feet) 50 Able to Maintain Weight Bearing Status Yes During Gait Assistive Devices Assistive Device None Orthotic/Prosthetic Devices or Brace: No Gait Deviations General Gait Pattern Decreased Stride Length Factors Limiting Gait Function Factors Limiting Gait Function Decreased Strength,Pain,Poor Balance Comments Gait Comments Pt favors the left leg, looks down at the floor, presents with hesitancy with gait PT-OP-H Neuro Start: 08/22/20 07:37 Freq: Status: Active Protocol: Document 08/23/20 12:13 MB (Rec: 08/23/20 14:14 MB [id number]) Sensation Evaluation Comments Summary Comments Pt reports numbness right temporal area and eye brow Coordination Evaluation Upper Extremity Tests Right Finger to Nose Test Normal Performance Pronation/Supination Test Normal Performance Left Finger to Nose Test Normal Performance Pronation/Supination Test Minimal Impairment Comments Coordination Comments Right toe tapping over opposite foot normal x5 reps, rapid and accurate. Slow with left toe tapping over right foot and inaccurate, given for exercise for home: 10 reps every hour when sitting Vital Signs Pulse 1 Pulse at Rest (bpm) 77 Pulse Assessment Method Cuff Blood Pressure Sitting Blood Pressure (90/60-120/80 mmHg) 132/90 H Blood Pressure Source Automatic Cuff,Right Upper Extremity Comments Vital Signs Comments Doctor note for BP written under precautions, pt is in recommended range today PT-OP-K Range of Motion Start: 08/22/20 07:37 Freq: Status: Active Protocol: Document 08/23/20 12:13 MB (Rec: 08/23/20 14:14 MB [id number]) TMJ Range of Motion Comments Comments R eyebrow does not raise, can minimally lower. Pt presents with mild right jaw deviation and minimal dropping of left side of mouth with smile Toe Range of Motion Toes ROM Limitations Comments Decreased active left great toe extension compared to the right PT-OP-M Strength Start: 08/22/20 07:37 Freq: Status: Active Protocol: Document 11/28/21 13:00 [facility] (Rec: 11/28/21 13:50 [facility] [id number]) Shoulder Strength Shoulder Manual Muscle Testing Left Flexion 5 Normal Abduction (C5) 5 Normal Adduction 5 Normal Right Flexion 5 Normal Abduction (C5) 5 Normal Hip Strength Hip Manual Muscle Testing Left Flexion (L2) 4- Good- Extension (S1) 4 Good Abduction 3 Fair Adduction 3+ Fair+ External Rotation 4- Good- Internal Rotation 4- Good- Right Flexion (L2) 4+ Good+ Extension (S1) 4+ Good+ Abduction 4- Good- Adduction 5 Normal External Rotation 4+ Good+ Internal Rotation 4+ Good+ Knee Strength Knee Manual Muscle Testing Left Flexion (S2) 4+ Good+ Extension (L3) 5 Normal Comments Pt sitting Right Flexion (S2) 5 Normal Extension (L3) 5 Normal Comments Pt sitting Ankle/Foot Strength Ankle and Foot Manual Muscle Testing Left Dorsiflexion (L4) 5 Normal Plantarflexion (S1) 5 Normal Comments 20 heel raises Right Dorsiflexion (L4) 5 Normal Plantarflexion (S1) 5 Normal Comments 20 heel raises Toe Strength Toe Manual Muscle Testing Great Toe Extension 5 Normal Comments L Right Great Toe Extension 4+ Good+ PT-OP-O Vestibular Start: 08/22/20 07:37 Freq: Status: Active Protocol: Document 08/23/20 12:13 MB (Rec: 08/23/20 14:14 MB [id number]) Vestibular Assessment Visual Testing Smooth Pursuits Horizontal Normal Smooth Pursuits Vertical Normal Gaze Evoked Nystagmus With Fixation Negative Convergence Test R impaired Spontaneous Nystagmus Negative Comments Vestibular Comments Left pupil with decreased reactivity to pen light but very minimal PT-OP-Q Treatments Start: 08/22/20 07:37 Freq: Status: Active Protocol: Document 01/25/22 15:22 [facility] (Rec: 01/25/22 18:05 [facility] [id number]) Manual Therapy Treatment Soft Tissue Mobilization cervical Body Location B UT, LS, scalenes, SO, cervical paraspinals Mobilization Type Rolling,Strumming,Sustained Pressure Intensity/Depth Moderate Body Position Sidelying Joint Mobilizations sternum Comments DANIELITO sternum & manubiumFM w/ breathing & UE motions ribs Comments ribs 1-3 distraction &AP & caudal FM PT-OP-T Assessment and Plan Start: 08/22/20 07:37 Freq: Status: Active Protocol: Document 01/25/22 15:22 [facility] (Rec: 01/25/22 18:05 [facility] [id number]) Physical Therapy Assessment Goals 5 Internet Marketer Goal (LTG) Pt will gait train at least 1650 feet in 6 minutes without AD and no LOB or dragging finger on the wall for steadying assist by 08/31/21. 07/03/21: Pt gait trains 1654 feet in 6 minutes with occ left index finger dragging along wall to assist with balance with anti-clockwise gait. 06/02/21: Pt gait trains 1541 feet in 6 minutes, walking anti-clockwise. Twice, she rubs left hand on corner when turning to the left in the hallway. She has increased arms out and right arm swing and left LE does not move as well motor-viera compared to the right and requires effort to clear foot each time. Pt is wearing short wellingtons and this may cause exaggeration of lifting foot, requiring more effort which shows as such on the left. 03/29/21: Pt gait trains 1531 feet in 6 minutes, which is 3 feet further than when last tested in October 202008/30-143ft 11/28-148 LTG Duration 02/27 4 [facility] Goal (LTG) Pt will perform progressive HEP with I including postural, flexibility, balance, LE strengthening, breathing, and VOR exercises to decrease symptoms and improve balance by 08/31/21. 07/03/21: Pt is performing band exercises for legs, back package wrapper self-massage, breathing, walking the dog, pelvic realignment exercises and balance exercises in the hallway. She is doing exercises 1-2x/wk. 2-pt walking and doing exercises at home plan to update and progress program 11/28-advancing based on cont deficits LTG Duration 01/28/22 3 [facility] Goal (LTG) Pt will present with improved left shoulder flexion, left hip flexion, left knee flexion and left great toe extension to 5/5 to improve balance by . 07/03/21: Left shoulder flexion is 5/5, left hip flexion 4+/5, knee flexion 5/5, great toe extension 5/5. 06/02/21: Left shoulder flexion is 4/5; left hip flexion 4/5; left knee flexion 4/5; left great toe extension 5/5. 08/30-still very limited 11/28-change goal to at least 4 +/5 all LE MMT as UE MMT is WNL LTG Duration 02/27 2 [facility] Goal (LTG) Pt will report a 70% improvement in dizziness and headache symptoms to allow return to PLOF by 08/31/21. 07/03/21: Pt reports flare-up of symptoms since the snow. 03/29/21: Pt reports that in the recent weeks, her dizziness has gotten worse. It gets worse when she does not have PT for a long time and when she is playin with her down. Squatting too fast and sudden head movements are provocative. 08/30-pt reports no big change but does feel better fro the rest of the day after last session 11/28-dizziness has improved about 50%; ETIENNE about 75% improvement since start of PT LTG Duration 02/27 1 [facility] Goal (LTG) Pt will perform WNLs on FGA to decrease fall risk and improve balance by 08/31/21. 07/03/21: FGA score is slightly improved with score and pt reporting gait with head turns up and down and walking with eyes closed being the most symptomatic. Tandem gait is still not very possible. Turning at the end of the hallway required her to reach out to catch her balance. 08/30- 11/28- improved LTG Duration 02/27 Assessment Summary Assessment pt reports significant relief with session and overall feeling better w/improved ROM into rotations B. She did have dizziness w/ext and nausea w/ flex after treatment and PT was mindful to avoid any manual work that did exasterbate those symptoms. Physical Therapy Plan Frequency and Duration Frequency of Treatment 1x/Week Duration of Treatment 3 months Plan of Care Start Date 11/28/21 Plan of Care End Date 02/27/22 Next Visit Focus/Plan Next Note Type Treatment Note Next Visit Plan cont to work PNF & to dec pain
--- NOTE | 2022-02-06 18:51 | PT.OTN ---
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) Headache, unspecified (02/06/22) Weakness (02/06/22) Physical Therapy Treatment Note PT-OP-A Visit Information Start: 08/22/20 07:37 Freq: Status: Active Protocol: Document 02/06/22 18:46 [facility] (Rec: 02/06/22 18:51 [facility] [id number]) Out-Patient Physical Therapy Visit Information Visit Information Visit Type Treatment Note Visit Start Time 10:37 Visit Stop Time 11:15 Total Visit Minutes 38 Visit Number Number of TEXTILE COATING MACHINE OPERATOR Visits 0 PT-OP-B Current Condition Start: 08/22/20 07:37 Freq: Status: Active Protocol: Document 08/23/20 12:13 MB (Rec: 08/23/20 13:04 MB [id number]) Current Condition History of Current Condition Onset Date Surgery 07/27/20 Current Complaints Dizziness, light-headedness, ETIENNE and left leg pain and imbalance History of Current Condition 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 Pt had fall and concussion then as passed out. In PMH, pt writes back pain, superficial blood clot right LE, ulcers. Current complaints include: dizziness when active (walking and movements of neck), decreased processing words, headaches managed by medications, trouble opening right side of jaw post-op, neck pain and stiffness. Pt denies falls since surgery. Pt is wearing an ice hat. Pt reports pain right side of head, left jaw and left thigh. ETIENNE pain gets up to 5/10 with medication. Her neck pain is 4 /10. Left leg pain gets up to 7/10. She reports left leg pain as deep and shooting. Pt reports pain with walking on left leg. Pt reports that her left leg feels weak. The Cymbalta helps with nerve pain . Pt reports that her right eye brown does not yet move after surgery and the right side of her head is swollen. Mother states that pt still does not have any appetite. Treatment Goals Patient/Caregiver Goals Decrease pain, increase balance and leg strength. PT-OP-C Subjective Start: 08/22/20 07:37 Freq: Status: Active Protocol: Document 02/06/22 18:46 [facility] (Rec: 02/06/22 18:51 [facility] [id number]) OP-PT Subjective Patient Comments Patient Comments Pt reports she start some of her testing next week for POTS . Pt reports fatigue this week which makes her balance worse . PT-OP-D Balance Start: 08/22/20 07:37 Freq: Status: Active Protocol: Document 08/23/20 12:13 MB (Rec: 08/23/20 14:14 MB [id number]) Balance Tests Romberg Romberg LOB to the right and then the left, socks and no shoes PT-OP-E Functional Tests Start: 08/30/21 14:38 Freq: Status: Active Protocol: Document 11/28/21 13:00 [facility] (Rec: 11/28/21 13:50 [facility] [id number]) Functional Tests 6 Minute Walk Test Distance 1481ft Device Used none Functional Gait Assessment Score 19 PT-OP-G Mobility & Gait Start: 08/22/20 07:37 Freq: Status: Active Protocol: Document 08/23/20 12:13 MB (Rec: 08/23/20 14:14 MB [id number]) OP Gait Assessment Gait Gait Assistance Required: Independent Distance (Feet) 50 Able to Maintain Weight Bearing Status Yes During Gait Assistive Devices Assistive Device None Orthotic/Prosthetic Devices or Brace: No Gait Deviations General Gait Pattern Decreased Stride Length Factors Limiting Gait Function Factors Limiting Gait Function Decreased Strength,Pain,Poor Balance Comments Gait Comments Pt favors the left leg, looks down at the floor, presents with hesitancy with gait PT-OP-H Neuro Start: 08/22/20 07:37 Freq: Status: Active Protocol: Document 08/23/20 12:13 MB (Rec: 08/23/20 14:14 MB [id number]) Sensation Evaluation Comments Summary Comments Pt reports numbness right temporal area and eye brow Coordination Evaluation Upper Extremity Tests Right Finger to Nose Test Normal Performance Pronation/Supination Test Normal Performance Left Finger to Nose Test Normal Performance Pronation/Supination Test Minimal Impairment Comments Coordination Comments Right toe tapping over opposite foot normal x5 reps, rapid and accurate. Slow with left toe tapping over right foot and inaccurate, given for exercise for home: 10 reps every hour when sitting Vital Signs Pulse 1 Pulse at Rest (bpm) 77 Pulse Assessment Method Cuff Blood Pressure Sitting Blood Pressure (90/60-120/80 mmHg) 132/90 H Blood Pressure Source Automatic Cuff,Right Upper Extremity Comments Vital Signs Comments Doctor note for BP written under precautions, pt is in recommended range today PT-OP-K Range of Motion Start: 08/22/20 07:37 Freq: Status: Active Protocol: Document 08/23/20 12:13 MB (Rec: 08/23/20 14:14 MB [id number]) TMJ Range of Motion Comments Comments R eyebrow does not raise, can minimally lower. Pt presents with mild right jaw deviation and minimal dropping of left side of mouth with smile Toe Range of Motion Toes ROM Limitations Comments Decreased active left great toe extension compared to the right PT-OP-M Strength Start: 08/22/20 07:37 Freq: Status: Active Protocol: Document 11/28/21 13:00 [facility] (Rec: 11/28/21 13:50 [facility] [id number]) Shoulder Strength Shoulder Manual Muscle Testing Left Flexion 5 Normal Abduction (C5) 5 Normal Adduction 5 Normal Right Flexion 5 Normal Abduction (C5) 5 Normal Hip Strength Hip Manual Muscle Testing Left Flexion (L2) 4- Good- Extension (S1) 4 Good Abduction 3 Fair Adduction 3+ Fair+ External Rotation 4- Good- Internal Rotation 4- Good- Right Flexion (L2) 4+ Good+ Extension (S1) 4+ Good+ Abduction 4- Good- Adduction 5 Normal External Rotation 4+ Good+ Internal Rotation 4+ Good+ Knee Strength Knee Manual Muscle Testing Left Flexion (S2) 4+ Good+ Extension (L3) 5 Normal Comments Pt sitting Right Flexion (S2) 5 Normal Extension (L3) 5 Normal Comments Pt sitting Ankle/Foot Strength Ankle and Foot Manual Muscle Testing Left Dorsiflexion (L4) 5 Normal Plantarflexion (S1) 5 Normal Comments 20 heel raises Right Dorsiflexion (L4) 5 Normal Plantarflexion (S1) 5 Normal Comments 20 heel raises Toe Strength Toe Manual Muscle Testing Great Toe Extension 5 Normal Comments L Right Great Toe Extension 4+ Good+ PT-OP-O Vestibular Start: 08/22/20 07:37 Freq: Status: Active Protocol: Document 08/23/20 12:13 MB (Rec: 08/23/20 14:14 MB [id number]) Vestibular Assessment Visual Testing Smooth Pursuits Horizontal Normal Smooth Pursuits Vertical Normal Gaze Evoked Nystagmus With Fixation Negative Convergence Test R impaired Spontaneous Nystagmus Negative Comments Vestibular Comments Left pupil with decreased reactivity to pen light but very minimal PT-OP-Q Treatments Start: 08/22/20 07:37 Freq: Status: Active Protocol: Document 02/06/22 18:46 [facility] (Rec: 02/06/22 18:51 [facility] [id number]) Therapeutic Exercises Supine Exercises axial elongation Supine Exercise Name w/facet ant pull Side bilateral Reps/Minutes 10 sec x10 Comments done throughout cervical spine ; inc time for set up Standing Exercises wall posture Standing Exercise Name wall roll up w/modified pivot prone & B shoulder ext Side bilateral Reps/Minutes 1 min holds x2 Comments required inc time each time to get into set up Manual Therapy Treatment Soft Tissue Mobilization cervical Body Location B UT, LS, scalenes, SO, cervical paraspinals Mobilization Type Rolling,Strumming,Sustained Pressure Intensity/Depth Moderate Comments supine & seated Joint Mobilizations thoracic Comments 1. T1-3 UPA RFM supine 2. T1-3 transverse L FM sternum Comments DANIELITO sternum & manubiumFM ribs Comments R 1-2 AP & caudal FM PT-OP-T Assessment and Plan Start: 08/22/20 07:37 Freq: Status: Active Protocol: Document 02/06/22 18:46 [facility] (Rec: 02/06/22 18:51 [facility] [id number]) Physical Therapy Assessment Goals 5 Guide Setter Goal (LTG) Pt will gait train at least 1650 feet in 6 minutes without AD and no LOB or dragging finger on the wall for steadying assist by 08/31/21. 07/03/21: Pt gait trains 1654 feet in 6 minutes with occ left index finger dragging along wall to assist with balance with anti-clockwise gait. 06/02/21: Pt gait trains 1541 feet in 6 minutes, walking anti-clockwise. Twice, she rubs left hand on corner when turning to the left in the hallway. She has increased arms out and right arm swing and left LE does not move as well motor-viera compared to the right and requires effort to clear foot each time. Pt is wearing short wellingtons and this may cause exaggeration of lifting foot, requiring more effort which shows as such on the left. 03/29/21: Pt gait trains 1531 feet in 6 minutes, which is 3 feet further than when last tested in October 202008/30-1431ft 5/31-1481ft LTG Duration 02/27 4 Guide Setter Goal (LTG) Pt will perform progressive HEP with I including postural, flexibility, balance, LE strengthening, breathing, and VOR exercises to decrease symptoms and improve balance by 08/31/21. 07/03/21: Pt is performing band exercises for legs, back chief gauger self-massage, breathing, walking the dog, pelvic realignment exercises and balance exercises in the hallway. She is doing exercises 1-2x/wk. 08/30-pt walking and doing exercises at home plan to update and progress program 11/28-advancing based on cont deficits LTG Duration 01/28/22 3 Guide Setter Goal (LTG) Pt will present with improved left shoulder flexion, left hip flexion, left knee flexion and left great toe extension to 5/5 to improve balance by . 07/03/21: Left shoulder flexion is 5/5, left hip flexion 4+/5, knee flexion 5/5, great toe extension 5/5. 06/02/21: Left shoulder flexion is 4/5; left hip flexion 4/5; left knee flexion 4/5; left great toe extension 5/5. 08/30-still very limited 11/28-change goal to at least 4 +/5 all LE MMT as UE MMT is WNL LTG Duration 02/27 2 Guide Setter Goal (LTG) Pt will report a 70% improvement in dizziness and headache symptoms to allow return to PLOF by 08/31/21. 07/03/21: Pt reports flare-up of symptoms since the snow. 03/29/21: Pt reports that in the recent weeks, her dizziness has gotten worse. It gets worse when she does not have PT for a long time and when she is playin with her down. Squatting too fast and sudden head movements are provocative. 08/30-pt reports no big change but does feel better fro the rest of the day after last session 11/28-dizziness has improved about 50%; ETIENNE about 75% improvement since start of PT LTG Duration 02/27 1 Guide Setter Goal (LTG) Pt will perform WNLs on FGA to decrease fall risk and improve balance by 08/31/21. 07/03/21: FGA score is slightly improved with score and pt reporting gait with head turns up and down and walking with eyes closed being the most symptomatic. Tandem gait is still not very possible. Turning at the end of the hallway required her to reach out to catch her balance. 08/30- 11/28- improved LTG Duration 02/27 Assessment Summary Assessment Prior to manual, pt was unable to standing in good posture w /o LOB when corrected, but was able to stand w/good posture after treatment w/o LOB. She had nausea w/flex in sit prior to manual but only had LOB in standing when tested after manual. Physical Therapy Plan Frequency and Duration Frequency of Treatment 1x/Week Duration of Treatment 3 months Plan of Care Start Date 11/28/21 Plan of Care End Date 02/27/22 Next Visit Focus/Plan Next Note Type Treatment Note Next Visit Plan cont to work on ability to flex and ext neck w/o symptoms
--- NOTE | 2022-02-20 18:14 | PT.OTN ---
Current Diagnoses Moyamoya disease (02/20/22) Headache, unspecified (02/20/22) Weakness (02/20/22) Physical Therapy Treatment Note PT-OP-A Visit Information Start: 08/22/20 07:37 Freq: Status: Active Protocol: Document 02/20/22 14:42 [facility] (Rec: 02/20/22 18:14 [facility] [id number]) Out-Patient Physical Therapy Visit Information Visit Information Visit Type Treatment Note Visit Start Time 14:38 Visit Stop Time 15:18 Total Visit Minutes 40 Visit Number Number of BRAKE REPAIRER Visits 0 PT-OP-B Current Condition Start: 08/22/20 07:37 Freq: Status: Active Protocol: Document 08/23/20 12:13 MB (Rec: 08/23/20 13:04 MB [id number]) Current Condition History of Current Condition Onset Date Surgery 07/27/20 Current Complaints Dizziness, light-headedness, ETIENNE and left leg pain and imbalance History of Current Condition 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 Pt had fall and concussion then as passed out. In PMH, pt writes back pain, superficial blood clot right LE, ulcers. Current complaints include: dizziness when active (walking and movements of neck), decreased processing words, headaches managed by medications, trouble opening right side of jaw post-op, neck pain and stiffness. Pt denies falls since surgery. Pt is wearing an ice hat. Pt reports pain right side of head, left jaw and left thigh. ETIENNE pain gets up to 5/10 with medication. Her neck pain is 4 /10. Left leg pain gets up to 7/10. She reports left leg pain as deep and shooting. Pt reports pain with walking on left leg. Pt reports that her left leg feels weak. The Cymbalta helps with nerve pain . Pt reports that her right eye brown does not yet move after surgery and the right side of her head is swollen. Mother states that pt still does not have any appetite. Treatment Goals Patient/Caregiver Goals Decrease pain, increase balance and leg strength. PT-OP-C Subjective Start: 08/22/20 07:37 Freq: Status: Active Protocol: Document 02/20/22 14:42 [facility] (Rec: 02/20/22 18:14 [facility] [id number]) OP-PT Subjective Patient Comments Patient Comments Pt reports being more dizzy since tilt test last week. She sees neurologist on PT-OP-D Balance Start: 08/22/20 07:37 Freq: Status: Active Protocol: Document 08/23/20 12:13 MB (Rec: 08/23/20 14:14 MB [id number]) Balance Tests Romberg Romberg LOB to the right and then the left, socks and no shoes PT-OP-E Functional Tests Start: 08/30/21 14:38 Freq: Status: Active Protocol: Document 02/20/22 14:42 [facility] (Rec: 02/20/22 18:14 [facility] [id number]) Functional Tests 6 Minute Walk Test Distance 1523ft Device Used none Functional Gait Assessment Score 19 PT-OP-G Mobility & Gait Start: 08/22/20 07:37 Freq: Status: Active Protocol: Document 08/23/20 12:13 MB (Rec: 08/23/20 14:14 [id number]) OP Gait Assessment Gait Gait Assistance Required: Independent Distance (Feet) 50 Able to Maintain Weight Bearing Status Yes During Gait Assistive Devices Assistive Device None Orthotic/Prosthetic Devices or Brace: No Gait Deviations General Gait Pattern Decreased Stride Length Factors Limiting Gait Function Factors Limiting Gait Function Decreased Strength,Pain,Poor Balance Comments Gait Comments Pt favors the left leg, looks down at the floor, presents with hesitancy with gait PT-OP-H Neuro Start: 08/22/20 07:37 Freq: Status: Active Protocol: Document 08/23/20 12:13 MB (Rec: 08/23/20 14:14 MB [id number]) Sensation Evaluation Comments Summary Comments Pt reports numbness right temporal area and eye brow Coordination Evaluation Upper Extremity Tests Right Finger to Nose Test Normal Performance Pronation/Supination Test Normal Performance Left Finger to Nose Test Normal Performance Pronation/Supination Test Minimal Impairment Comments Coordination Comments Right toe tapping over opposite foot normal x5 reps, rapid and accurate. Slow with left toe tapping over right foot and inaccurate, given for exercise for home: 10 reps every hour when sitting Vital Signs Pulse 1 Pulse at Rest (bpm) 77 Pulse Assessment Method Cuff Blood Pressure Sitting Blood Pressure (90/60-120/80 mmHg) 132/90 H Blood Pressure Source Automatic Cuff,Right Upper Extremity Comments Vital Signs Comments Doctor note for BP written under precautions, pt is in recommended range today PT-OP-K Range of Motion Start: 08/22/20 07:37 Freq: Status: Active Protocol: Document 08/23/20 12:13 MB (Rec: 08/23/20 14:14 MB [id number]) TMJ Range of Motion Comments Comments R eyebrow does not raise, can minimally lower. Pt presents with mild right jaw deviation and minimal dropping of left side of mouth with smile Toe Range of Motion Toes ROM Limitations Comments Decreased active left great toe extension compared to the right PT-OP-M Strength Start: 08/22/20 07:37 Freq: Status: Active Protocol: Document 02/20/22 14:42 [facility] (Rec: 02/20/22 18:14 [facility] [id number]) Hip Strength Hip Manual Muscle Testing Left Flexion (L2) 4+ Good+ Extension (S1) 4+ Good+ Abduction 3+ Fair+ Adduction 4 Good External Rotation 5 Normal Internal Rotation 4 Good Right Flexion (L2) 5 Normal Extension (S1) 5 Normal Abduction 4+ Good+ Adduction 5 Normal External Rotation 5 Normal Internal Rotation 4+ Good+ Knee Strength Knee Manual Muscle Testing Left Flexion (S2) 5 Normal Extension (L3) 5 Normal Comments Pt sitting Right Flexion (S2) 5 Normal Extension (L3) 5 Normal Comments Pt sitting Ankle/Foot Strength Ankle and Foot Manual Muscle Testing Left Dorsiflexion (L4) 5 Normal Plantarflexion (S1) 5 Normal Comments 20 heel raises Right Dorsiflexion (L4) 5 Normal Plantarflexion (S1) 5 Normal Comments 20 heel raises PT-OP-O Vestibular Start: 08/22/20 07:37 Freq: Status: Active Protocol: Document 08/23/20 12:13 MB (Rec: 08/23/20 14:14 MB [id number]) Vestibular Assessment Visual Testing Smooth Pursuits Horizontal Normal Smooth Pursuits Vertical Normal Gaze Evoked Nystagmus With Fixation Negative Convergence Test R impaired Spontaneous Nystagmus Negative Comments Vestibular Comments Left pupil with decreased reactivity to pen light but very minimal PT-OP-Q Treatments Start: 08/22/20 07:37 Freq: Status: Active Protocol: Document 02/20/22 14:42 [facility] (Rec: 02/20/22 18:14 [facility] [id number]) Manual Therapy Treatment Soft Tissue Mobilization cervical Body Location B UT, LS, scalenes, SO, cervical paraspinals Mobilization Type Rolling,Strumming,Sustained Pressure Intensity/Depth Moderate Comments supine & seated PT-OP-T Assessment and Plan Start: 08/22/20 07:37 Freq: Status: Active Protocol: Document 02/20/22 14:42 [facility] (Rec: 02/20/22 18:14 [facility] [id number]) Physical Therapy Assessment Goals 5 Prison Goal (LTG) Pt will gait train at least 1650 feet in 6 minutes without AD and no LOB or dragging finger on the wall for steadying assist by 08/31/21. 07/03/21: Pt gait trains 1654 feet in 6 minutes with occ left index finger dragging along wall to assist with balance with anti-clockwise gait. 06/02/21: Pt gait trains 1541 feet in 6 minutes, walking anti-clockwise. Twice, she rubs left hand on corner when turning to the left in the hallway. She has increased arms out and right arm swing and left LE does not move as well motor-viera compared to the right and requires effort to clear foot each time. Pt is wearing short wellingtons and this may cause exaggeration of lifting foot, requiring more effort which shows as such on the left. 03/29/21: Pt gait trains 1531 feet in 6 minutes, which is 3 feet further than when last tested in October 202008/30-1431ft 11/28-1481ft 02/20/22-1523ft touched wall 1x & mild instability throughout LTG Duration 05/23 4 Prison Goal (LTG) Pt will perform progressive HEP with I including postural, flexibility, balance, LE strengthening, breathing, and VOR exercises to decrease symptoms and improve balance by 08/31/21. 07/03/21: Pt is performing band exercises for legs, back therapy director self-massage, breathing, walking the dog, pelvic realignment exercises and balance exercises in the hallway. She is doing exercises 1-2x/wk. 08/30-pt walking and doing exercises at home plan to update and progress program 11/28-advancing based on cont deficits LTG Duration achieved and progressing as able 3 Prison Goal (LTG) 11/28-change goal to at least 4 +/5 all LE MMT as UE MMT is WNL 02/20-abd, IR still limited but overall much improved LTG Duration 05/23 2 Prison Goal (LTG) Pt will report a 70% improvement in dizziness and headache symptoms to allow return to PLOF by 08/31/21. 07/03/21: Pt reports flare-up of symptoms since the snow. 03/29/21: Pt reports that in the recent weeks, her dizziness has gotten worse. It gets worse when she does not have PT for a long time and when she is playin with her down. Squatting too fast and sudden head movements are provocative. 08/30-pt reports no big change but does feel better fro the rest of the day after last session 11/28-dizziness has improved about 50%; ETIENNE about 75% improvement since start of PT 02/20-a lot of inc dizziness since tilt test LTG Duration 05/23/22 1 Prison Goal (LTG) Pt will perform WNLs on FGA to decrease fall risk and improve balance by 08/31/21. 07/03/21: FGA score is slightly improved with score 18/30 and pt reporting gait with head turns up and down and walking with eyes closed being the most symptomatic. Tandem gait is still not very possible. Turning at the end of the hallway required her to reach out to catch her balance. 08/30- 11/28- improved 02/20--today was a bad day and pt scored same, but typically would do better on mult of the task. LTG Duration 05/23 Assessment Summary Assessment Pt is progressing w/strength and progressed w/6 min walk distance. Today, pt did not perform as well on balance test as she could have in past weeks recently as she has been dizzy more since tilt test last week, making head turns and body turns more difficult on her balance. She is making slow progress and would benefit from cont PT to work on her balance, neck posture, LE strength and overall neck mobility and dec symptoms. Physical Therapy Plan Frequency and Duration Frequency of Treatment 1x/Week Duration of Treatment 3 months Plan of Care Start Date 02/20/22 Plan of Care End Date 05/23/22 Therapeutic Interventions Therapeutic Interventions Balance Training,Canalithic Repositioning,Coordination Training,Gait Training,Home Exercise Program,Joint Mobilizations,Manual Therapy, Neuromuscular Re-education, Patient/Caregiver Education, Self-Care/Home Management, Sensory Integration,Soft Tissue Mobilization,Taping, Therapeutic Activities, Therapeutic Exercises, Vestibular Rehabilitation Modalities Cold Pack/Ice Massage,Electric Stimulation,Hot Packs, Ultrasound Next Visit Focus/Plan Next Note Type Treatment Note Next Visit Plan cont to work on ability to flex and ext neck w/o symptoms
--- NOTE | 2022-02-20 18:15 | PT.OPPOC ---
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) Headache, unspecified (02/20/22) Weakness (02/20/22) Visit Care Team Role Provider Type Christen Figueroa PA-C Primary Care Provider Non-Staff Specialty: Family Practice Address: [address], [address], [place], [address] Email: TONE Riley Attending Provider Non-Staff Referring Provider Specialty: Nursing Address: [address], [place], [address] Email: Plan Of Care PT-OP-T Assessment and Plan Start: 08/22/20 07:37 Freq: Status: Active Protocol: Document 02/20/22 14:42 [facility] (Rec: 02/20/22 18:14 [facility] [id number]) Physical Therapy Assessment Goals 5 Training Designer Goal (LTG) Pt will gait train at least 1650 feet in 6 minutes without AD and no LOB or dragging finger on the wall for steadying assist by 08/31/21. 07/03/21: Pt gait trains 1654 feet in 6 minutes with occ left index finger dragging along wall to assist with balance with anti-clockwise gait. 06/02/21: Pt gait trains 1541 feet in 6 minutes, walking anti-clockwise. Twice, she rubs left hand on corner when turning to the left in the hallway. She has increased arms out and right arm swing and left LE does not move as well motor-viera compared to the right and requires effort to clear foot each time. Pt is wearing short wellingtons and this may cause exaggeration of lifting foot, requiring more effort which shows as such on the left. 03/29/21: Pt gait trains 1531 feet in 6 minutes, which is 3 feet further than when last tested in October 2020/-1431ft 11/28-1481ft 02/20/22-1523ft touched wall 1x & mild instability throughout LTG Duration 05/23 4 Training Designer Goal (LTG) Pt will perform progressive HEP with I including postural, flexibility, balance, LE strengthening, breathing, and VOR exercises to decrease symptoms and improve balance by 08/31/21. 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 She is doing exercises 1-2x/wk. 08/30-pt walking and doing exercises at home plan to update and progress program 11/28-advancing based on cont deficits LTG Duration achieved and progressing as able 3 Training Designer Goal (LTG) 11/28-change goal to at least 4 +/5 all LE MMT as UE MMT is WNL 02/20-abd, IR still limited but overall much improved LTG Duration 05/23 2 Training Designer Goal (LTG) Pt will report a 70% improvement in dizziness and headache symptoms to allow return to PLOF by 08/31/21. 07/03/21: Pt reports flare-up of symptoms since the snow. 03/29/21: Pt reports that in the recent weeks, her dizziness has gotten worse. It gets worse when she does not have PT for a long time and when she is playin with her down. Squatting too fast and sudden head movements are provocative. 08/30-pt reports no big change but does feel better fro the rest of the day after last session 11/28-dizziness has improved about 50%; ETIENNE about 75% improvement since start of PT 02/20-a lot of inc dizziness since tilt test LTG Duration 05/23/22 1 Usp Goal (LTG) Pt will perform WNLs on FGA to decrease fall risk and improve balance by 08/31/21. 07/03/21: FGA score is slightly improved with score 18/30 and pt reporting gait with head turns up and down and walking with eyes closed being the most symptomatic. Tandem gait is still not very possible. Turning at the end of the hallway required her to reach out to catch her balance. 08/30- 11/28- improved 02/20--today was a bad day and pt scored same, but typically would do better on mult of the task. LTG Duration 05/23 Assessment Summary Assessment Pt is progressing w/strength and progressed w/6 min walk distance. Today, pt did not perform as well on balance test as she could have in past weeks recently as she has been dizzy more since tilt test last week, making head turns and body turns more difficult on her balance. She is making slow progress and would benefit from cont PT to work on her balance, neck posture, LE strength and overall neck mobility and dec symptoms. Physical Therapy Plan Frequency and Duration Frequency of Treatment 1x/Week Duration of Treatment 3 months Plan of Care Start Date 02/20/22 Plan of Care End Date 05/23/22 Therapeutic Interventions Therapeutic Interventions Balance Training,Canalithic Repositioning,Coordination Training,Gait Training,Home Exercise Program,Joint Mobilizations,Manual Therapy, Neuromuscular Re-education, Patient/Caregiver Education, Self-Care/Home Management, Sensory Integration,Soft Tissue Mobilization,Taping, Therapeutic Activities, Therapeutic Exercises, Vestibular Rehabilitation Modalities Cold Pack/Ice Massage,Electric Stimulation,Hot Packs, Ultrasound Next Visit Focus/Plan Next Note Type Treatment Note Next Visit Plan cont to work on ability to flex and ext neck w/o symptoms Plan of Care Dates Plan of Care Start Date 02/20/22 Plan of Care End Date 05/23/22 Electronically Signed by: Tanya Dhaliwal, PT 02/20/22 0014 If you are in agreement with this Plan of Care, please return a signed and dated copy. I have reviewed this Plan of Care and certify that the skilled therapy services above are required to meet the patient?s needs. Physician Signature Date Printed Name and Credentials Clinical Instructor Signature Printed Name and Credentials
--- NOTE | 2022-03-20 15:19 | PT.OTN ---
Current Diagnoses Moyamoya disease (03/20/22) Headache, unspecified (03/20/22) Weakness (03/20/22) Physical Therapy Treatment Note PT-OP-A Visit Information Start: 08/22/20 07:37 Freq: Status: Active Protocol: Document 03/20/22 14:33 [facility] (Rec: 03/20/22 15:19 [facility] [id number]) Out-Patient Physical Therapy Visit Information Visit Information Visit Type Treatment Note Visit Start Time 14:33 Visit Stop Time 15:14 Total Visit Minutes 41 Visit Number Number of SYSTEMS CHECKOUT MECHANIC Visits 0 PT-OP-B Current Condition Start: 08/22/20 07:37 Freq: Status: Active Protocol: Document 08/23/20 12:13 [facility] (Rec: 08/23/20 13:04 [facility] [id number]) Current Condition History of Current Condition Onset Date Surgery 07/27/20 Current Complaints Dizziness, light-headedness, ETIENNE and left leg pain and imbalance History of Current Condition 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 Pt had fall and concussion then as passed out. In PMH, pt writes back pain, superficial blood clot right LE, ulcers. Current complaints include: dizziness when active (walking and movements of neck), decreased processing words, headaches managed by medications, trouble opening right side of jaw post-op, neck pain and stiffness. Pt denies falls since surgery. Pt is wearing an ice hat. Pt reports pain right side of head, left jaw and left thigh. ETIENNE pain gets up to 5/10 with medication. Her neck pain is 4 /10. Left leg pain gets up to 7/10. She reports left leg pain as deep and shooting. Pt reports pain with walking on left leg. Pt reports that her left leg feels weak. The Cymbalta helps with nerve pain . Pt reports that her right eye brown does not yet move after surgery and the right side of her head is swollen. Mother states that pt still does not have any appetite. Treatment Goals Patient/Caregiver Goals Decrease pain, increase balance and leg strength. PT-OP-C Subjective Start: 08/22/20 07:37 Freq: Status: Active Protocol: Document 03/20/22 14:33 [facility] (Rec: 03/20/22 15:19 [facility] [id number]) OP-PT Subjective Patient Comments Patient Comments wall exercise has been helpful . Notes she feels like her neck hurts less when squats w/ hip hinge PT-OP-D Balance Start: 08/22/20 07:37 Freq: Status: Active Protocol: Document 08/23/20 12:13 [facility] (Rec: 08/23/20 14:14 [facility] [id number]) Balance Tests Romberg Romberg LOB to the right and then the left, socks and no shoes PT-OP-E Functional Tests Start: 08/30/21 14:38 Freq: Status: Active Protocol: Document 02/20/22 14:42 [facility] (Rec: 02/20/22 18:14 [facility] [id number]) Functional Tests 6 Minute Walk Test Distance 1523ft Device Used none Functional Gait Assessment Score 19 PT-OP-G Mobility & Gait Start: 08/22/20 07:37 Freq: Status: Active Protocol: Document 08/23/20 12:13 [facility] (Rec: 08/23/20 14:14 [facility] [id number]) OP Gait Assessment Gait Gait Assistance Required: Independent Distance (Feet) 50 Able to Maintain Weight Bearing Status Yes During Gait Assistive Devices Assistive Device None Orthotic/Prosthetic Devices or Brace: No Gait Deviations General Gait Pattern Decreased Stride Length Factors Limiting Gait Function Factors Limiting Gait Function Decreased Strength,Pain,Poor Balance Comments Gait Comments Pt favors the left leg, looks down at the floor, presents with hesitancy with gait PT-OP-H Neuro Start: 08/22/20 07:37 Freq: Status: Active Protocol: Document 08/23/20 12:13 [facility] (Rec: 08/23/20 14:14 [facility] [id number]) Sensation Evaluation Comments Summary Comments Pt reports numbness right temporal area and eye brow Coordination Evaluation Upper Extremity Tests Right Finger to Nose Test Normal Performance Pronation/Supination Test Normal Performance Left Finger to Nose Test Normal Performance Pronation/Supination Test Minimal Impairment Comments Coordination Comments Right toe tapping over opposite foot normal x5 reps, rapid and accurate. Slow with left toe tapping over right foot and inaccurate, given for exercise for home: 10 reps every hour when sitting Vital Signs Pulse 1 Pulse at Rest (bpm) 77 Pulse Assessment Method Cuff Blood Pressure Sitting Blood Pressure (90/60-120/80 mmHg) 132/90 H Blood Pressure Source Automatic Cuff,Right Upper Extremity Comments Vital Signs Comments Doctor note for BP written under precautions, pt is in recommended range today PT-OP-K Range of Motion Start: 08/22/20 07:37 Freq: Status: Active Protocol: Document 08/23/20 12:13 [facility] (Rec: 08/23/20 14:14 [facility] [id number]) TMJ Range of Motion Comments Comments R eyebrow does not raise, can minimally lower. Pt presents with mild right jaw deviation and minimal dropping of left side of mouth with smile Toe Range of Motion Toes ROM Limitations Comments Decreased active left great toe extension compared to the right PT-OP-M Strength Start: 08/22/20 07:37 Freq: Status: Active Protocol: Document 02/20/22 14:42 [facility] (Rec: 02/20/22 18:14 [facility] [id number]) Hip Strength Hip Manual Muscle Testing Left Flexion (L2) 4+ Good+ Extension (S1) 4+ Good+ Abduction 3+ Fair+ Adduction 4 Good External Rotation 5 Normal Internal Rotation 4 Good Right Flexion (L2) 5 Normal Extension (S1) 5 Normal Abduction 4+ Good+ Adduction 5 Normal External Rotation 5 Normal Internal Rotation 4+ Good+ Knee Strength Knee Manual Muscle Testing Left Flexion (S2) 5 Normal Extension (L3) 5 Normal Comments Pt sitting Right Flexion (S2) 5 Normal Extension (L3) 5 Normal Comments Pt sitting Ankle/Foot Strength Ankle and Foot Manual Muscle Testing Left Dorsiflexion (L4) 5 Normal Plantarflexion (S1) 5 Normal Comments 20 heel raises Right Dorsiflexion (L4) 5 Normal Plantarflexion (S1) 5 Normal Comments 20 heel raises PT-OP-O Vestibular Start: 08/22/20 07:37 Freq: Status: Active Protocol: Document 08/23/20 12:13 [facility] (Rec: 08/23/20 14:14 [facility] [id number]) Vestibular Assessment Visual Testing Smooth Pursuits Horizontal Normal Smooth Pursuits Vertical Normal Gaze Evoked Nystagmus With Fixation Negative Convergence Test R impaired Spontaneous Nystagmus Negative Comments Vestibular Comments Left pupil with decreased reactivity to pen light but very minimal PT-OP-Q Treatments Start: 08/22/20 07:37 Freq: Status: Active Protocol: Document 03/20/22 14:33 [facility] (Rec: 03/20/22 15:19 [facility] [id number]) Therapeutic Exercises Sitting Exercises chin tuck Sitting Exercise Name axial elongation Reps/Minutes 10 Standing Exercises Scapular retraction with back against wall Standing Exercise Name rows w/o retraction Side bilateral Equipment Used L2 Reps/Minutes 15 Manual Therapy Treatment Soft Tissue Mobilization cervical Body Location B UT, LS, scalenes, SO, cervical paraspinals Mobilization Type Rolling,Strumming,Sustained Pressure Intensity/Depth Moderate Comments supine & seated cranial fascia Body Location R>L Mobilization Type Myofascial Release Intensity/Depth Superficial Body Position Hooklying Comments into R forehead Joint Mobilizations thoracic Comments 1. T1-3 PA & UPA R 2. T5, T7-10 UPA R & PA FM PT-OP-T Assessment and Plan Start: 08/22/20 07:37 Freq: Status: Active Protocol: Document 03/20/22 14:33 [facility] (Rec: 03/20/22 15:19 [facility] [id number]) Physical Therapy Assessment Goals 5 Half-Way Goal (LTG) Pt will gait train at least 1650 feet in 6 minutes without AD and no LOB or dragging finger on the wall for steadying assist by 08/31/21. 07/03/21: Pt gait trains 1654 feet in 6 minutes with occ left index finger dragging along wall to assist with balance with anti-clockwise gait. 06/02/21: Pt gait trains 1541 feet in 6 minutes, walking anti-clockwise. Twice, she rubs left hand on corner when turning to the left in the hallway. She has increased arms out and right arm swing and left LE does not move as well motor-viera compared to the right and requires effort to clear foot each time. Pt is wearing short wellingtons and this may cause exaggeration of lifting foot, requiring more effort which shows as such on the left. 03/29/21: Pt gait trains 1531 feet in 6 minutes, which is 3 feet further than when last tested in October 202008/30-143ft 11/28-148ft 02/20/22-1523ft touched wall 1x & mild instability throughout LTG Duration 05/23 4 Senior Contract Specialist Goal (LTG) Pt will perform progressive HEP with I including postural, flexibility, balance, LE strengthening, breathing, and VOR exercises to decrease symptoms and improve balance by 08/31/21. 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 She is doing exercises 1-2x/wk. 3-pt walking and doing exercises at home plan to update and progress program 11/28-advancing based on cont deficits LTG Duration achieved and progressing as able 3 Half-Way Goal (LTG) 11/28-change goal to at least 4 +/5 all LE MMT as UE MMT is WNL 02/20-abd, IR still limited but overall much improved LTG Duration 05/23 2 Senior Contract Specialist Goal (LTG) Pt will report a 70% improvement in dizziness and headache symptoms to allow return to PLOF by 08/31/21. 07/03/21: Pt reports flare-up of symptoms since the snow. 03/29/21: Pt reports that in the recent weeks, her dizziness has gotten worse. It gets worse when she does not have PT for a long time and when she is playin with her down. Squatting too fast and sudden head movements are provocative. 08/30-pt reports no big change but does feel better fro the rest of the day after last session 11/28-dizziness has improved about 50%; ETIENNE about 75% improvement since start of PT 02/20-a lot of inc dizziness since tilt test LTG Duration 05/23/22 1 Senior Contract Specialist Goal (LTG) Pt will perform WNLs on FGA to decrease fall risk and improve balance by 08/31/21. 07/03/21: FGA score is slightly improved with score 18/30 and pt reporting gait with head turns up and down and walking with eyes closed being the most symptomatic. Tandem gait is still not very possible. Turning at the end of the hallway required her to reach out to catch her balance. 08/30- 11/28- improved 02/20--today was a bad day and pt scored same, but typically would do better on mult of the task. LTG Duration 05/23 Assessment Summary Assessment Pt had greater ease w/less tension in scap region after manual when trying to get into good neck/head position.S he still requires a lot of cueing for this activity. Physical Therapy Plan Frequency and Duration Frequency of Treatment 1x/Week Duration of Treatment 3 months Plan of Care Start Date 02/20/22 Plan of Care End Date 05/23/22 Next Visit Focus/Plan Next Note Type Treatment Note Next Visit Plan cont to work on ability to flex and ext neck w/o symptoms
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
--- NOTE | 2022-04-26 10:56 | PT.OTN ---
Current Diagnoses Moyamoya disease (04/26/22) Headache, unspecified (04/26/22) Weakness (04/26/22) Physical Therapy Treatment Note PT-OP-A Visit Information Start: 08/22/20 07:37 Freq: Status: Active Protocol: Document 04/26/22 10:34 [facility] (Rec: 04/26/22 10:56 [facility] [id number]) Out-Patient Physical Therapy Visit Information Visit Information Visit Type Treatment Note Visit Start Time 09:51 Visit Stop Time 10:30 Total Visit Minutes 39 Visit Number Number of POPULATION GENETICIST Visits 0 PT-OP-B Current Condition Start: 08/22/20 07:37 Freq: Status: Active Protocol: Document 08/23/20 12:13 MB (Rec: 08/23/20 13:04 MB [id number]) Current Condition History of Current Condition Onset Date Surgery 07/27/20 Current Complaints Dizziness, light-headedness, ETIENNE and left leg pain and imbalance History of Current Condition 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 Pt had fall and concussion then as passed out. In PMH, pt writes back pain, superficial blood clot right LE, ulcers. Current complaints include: dizziness when active (walking and movements of neck), decreased processing words, headaches managed by medications, trouble opening right side of jaw post-op, neck pain and stiffness. Pt denies falls since surgery. Pt is wearing an ice hat. Pt reports pain right side of head, left jaw and left thigh. ETIENNE pain gets up to 5/10 with medication. Her neck pain is 4 /10. Left leg pain gets up to 7/10. She reports left leg pain as deep and shooting. Pt reports pain with walking on left leg. Pt reports that her left leg feels weak. The Cymbalta helps with nerve pain . Pt reports that her right eye brown does not yet move after surgery and the right side of her head is swollen. Mother states that pt still does not have any appetite. Treatment Goals Patient/Caregiver Goals Decrease pain, increase balance and leg strength. PT-OP-C Subjective Start: 08/22/20 07:37 Freq: Status: Active Protocol: Document 04/26/22 10:34 [facility] (Rec: 04/26/22 10:56 [facility] [id number]) OP-PT Subjective Patient Comments Patient Comments Pt reports doing worse w/ weather change PT-OP-D Balance Start: 08/22/20 07:37 Freq: Status: Active Protocol: Document 08/23/20 12:13 MB (Rec: 08/23/20 14:14 MB [id number]) Balance Tests Romberg Romberg LOB to the right and then the left, socks and no shoes PT-OP-E Functional Tests Start: 08/30/21 14:38 Freq: Status: Active Protocol: Document 02/20/22 14:42 [facility] (Rec: 02/20/22 18:14 [facility] [id number]) Functional Tests 6 Minute Walk Test Distance 1523ft Device Used none Functional Gait Assessment Score 19 PT-OP-G Mobility & Gait Start: 08/22/20 07:37 Freq: Status: Active Protocol: Document 08/23/20 12:13 MB (Rec: 08/23/20 14:14 MB [id number]) OP Gait Assessment Gait Gait Assistance Required: Independent Distance (Feet) 50 Able to Maintain Weight Bearing Status Yes During Gait Assistive Devices Assistive Device None Orthotic/Prosthetic Devices or Brace: No Gait Deviations General Gait Pattern Decreased Stride Length Factors Limiting Gait Function Factors Limiting Gait Function Decreased Strength,Pain,Poor Balance Comments Gait Comments Pt favors the left leg, looks down at the floor, presents with hesitancy with gait PT-OP-H Neuro Start: 08/22/20 07:37 Freq: Status: Active Protocol: Document 08/23/20 12:13 MB (Rec: 08/23/20 14:14 MB [id number]) Sensation Evaluation Comments Summary Comments Pt reports numbness right temporal area and eye brow Coordination Evaluation Upper Extremity Tests Right Finger to Nose Test Normal Performance Pronation/Supination Test Normal Performance Left Finger to Nose Test Normal Performance Pronation/Supination Test Minimal Impairment Comments Coordination Comments Right toe tapping over opposite foot normal x5 reps, rapid and accurate. Slow with left toe tapping over right foot and inaccurate, given for exercise for home: 10 reps every hour when sitting Vital Signs Pulse 1 Pulse at Rest (bpm) 77 Pulse Assessment Method Cuff Blood Pressure Sitting Blood Pressure (90/60-120/80 mmHg) 132/90 H Blood Pressure Source Automatic Cuff,Right Upper Extremity Comments Vital Signs Comments Doctor note for BP written under precautions, pt is in recommended range today PT-OP-K Range of Motion Start: 08/22/20 07:37 Freq: Status: Active Protocol: Document 08/23/20 12:13 MB (Rec: 08/23/20 14:14 MB [id number]) TMJ Range of Motion Comments Comments R eyebrow does not raise, can minimally lower. Pt presents with mild right jaw deviation and minimal dropping of left side of mouth with smile Toe Range of Motion Toes ROM Limitations Comments Decreased active left great toe extension compared to the right PT-OP-M Strength Start: 08/22/20 07:37 Freq: Status: Active Protocol: Document 02/20/22 14:42 [facility] (Rec: 02/20/22 18:14 [facility] [id number]) Hip Strength Hip Manual Muscle Testing Left Flexion (L2) 4+ Good+ Extension (S1) 4+ Good+ Abduction 3+ Fair+ Adduction 4 Good External Rotation 5 Normal Internal Rotation 4 Good Right Flexion (L2) 5 Normal Extension (S1) 5 Normal Abduction 4+ Good+ Adduction 5 Normal External Rotation 5 Normal Internal Rotation 4+ Good+ Knee Strength Knee Manual Muscle Testing Left Flexion (S2) 5 Normal Extension (L3) 5 Normal Comments Pt sitting Right Flexion (S2) 5 Normal Extension (L3) 5 Normal Comments Pt sitting Ankle/Foot Strength Ankle and Foot Manual Muscle Testing Left Dorsiflexion (L4) 5 Normal Plantarflexion (S1) 5 Normal Comments 20 heel raises Right Dorsiflexion (L4) 5 Normal Plantarflexion (S1) 5 Normal Comments 20 heel raises PT-OP-O Vestibular Start: 08/22/20 07:37 Freq: Status: Active Protocol: Document 08/23/20 12:13 MB (Rec: 08/23/20 14:14 MB [id number]) Vestibular Assessment Visual Testing Smooth Pursuits Horizontal Normal Smooth Pursuits Vertical Normal Gaze Evoked Nystagmus With Fixation Negative Convergence Test R impaired Spontaneous Nystagmus Negative Comments Vestibular Comments Left pupil with decreased reactivity to pen light but very minimal PT-OP-Q Treatments Start: 08/22/20 07:37 Freq: Status: Active Protocol: Document 04/26/22 10:34 [facility] (Rec: 04/26/22 10:56 [facility] [id number]) Manual Therapy Treatment Soft Tissue Mobilization cervical Body Location B SO, cervical paraspinals Mobilization Type Rolling,Strumming,Sustained Pressure Intensity/Depth Moderate Comments supine Joint Mobilizations thoracic Comments 1. T1-3 UPA R, L UPA T2, Transverse R T1-3 FM 2. Up glideT6, down glide T2-4 R, down glide T5 L FM cervical Comments distraction at C6-7 and C2-3 PT-OP-T Assessment and Plan Start: 08/22/20 07:37 Freq: Status: Active Protocol: Document 04/26/22 10:34 [facility] (Rec: 04/26/22 10:56 [facility] [id number]) Physical Therapy Assessment Goals 5 Risk Management Professional Goal (LTG) Pt will gait train at least 1650 feet in 6 minutes without AD and no LOB or dragging finger on the wall for steadying assist by 08/31/21. 07/03/21: Pt gait trains 1654 feet in 6 minutes with occ left index finger dragging along wall to assist with balance with anti-clockwise gait. 06/02/21: Pt gait trains 1541 feet in 6 minutes, walking anti-clockwise. Twice, she rubs left hand on corner when turning to the left in the hallway. She has increased arms out and right arm swing and left LE does not move as well motor-viera compared to the right and requires effort to clear foot each time. Pt is wearing short wellingtons and this may cause exaggeration of lifting foot, requiring more effort which shows as such on the left. 03/29/21: Pt gait trains 1531 feet in 6 minutes, which is 3 feet further than when last tested in October 202008/30-1431ft 11/28-1481ft 02/20/22-1523ft touched wall 1x & mild instability throughout LTG Duration 05/23 4 Risk Management Professional Goal (LTG) Pt will perform progressive HEP with I including postural, flexibility, balance, LE strengthening, breathing, and VOR exercises to decrease symptoms and improve balance by 08/31/21. 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 She is doing exercises 1-2x/wk. 08/30-pt walking and doing exercises at home plan to update and progress program 11/28-advancing based on cont deficits LTG Duration achieved and progressing as able 3 Intermediate Goal (LTG) 11/28-change goal to at least 4 +/5 all LE MMT as UE MMT is WNL 02/20-abd, IR still limited but overall much improved LTG Duration 05/23 2 Intermediate Goal (LTG) Pt will report a 70% improvement in dizziness and headache symptoms to allow return to PLOF by 08/31/21. 07/03/21: Pt reports flare-up of symptoms since the snow. 03/29/21: Pt reports that in the recent weeks, her dizziness has gotten worse. It gets worse when she does not have PT for a long time and when she is playin with her down. Squatting too fast and sudden head movements are provocative. 08/30-pt reports no big change but does feel better fro the rest of the day after last session 11/28-dizziness has improved about 50%; ETIENNE about 75% improvement since start of PT 02/20-a lot of inc dizziness since tilt test LTG Duration 05/23/22 1 Intermediate Goal (LTG) Pt will perform WNLs on FGA to decrease fall risk and improve balance by 08/31/21. 07/03/21: FGA score is slightly improved with score 18/30 and pt reporting gait with head turns up and down and walking with eyes closed being the most symptomatic. Tandem gait is still not very possible. Turning at the end of the hallway required her to reach out to catch her balance. 08/30- 11/28- improved 02/20--today was a bad day and pt scored same, but typically would do better on mult of the task. LTG Duration 05/23 Assessment Summary Assessment Pt did show improve rotation B from 60% B to 90% R and 80% L after manual. She cont to have tightness post in her neck Physical Therapy Plan Frequency and Duration Frequency of Treatment 1x/Week Plan of Care Start Date 02/20/22 Plan of Care End Date 05/23/22 Next Visit Focus/Plan Next Note Type Treatment Note Next Visit Plan cont to work on ability to flex and ext neck w/o symptoms & improve postural stability
--- NOTE | 2022-05-07 12:19 | PT.OTN ---
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) Headache, unspecified (05/07/22) Weakness (05/07/22) Physical Therapy Treatment Note PT-OP-A Visit Information Start: 08/22/20 07:37 Freq: Status: Active Protocol: Document 05/07/22 09:46 [facility] (Rec: 05/07/22 12:19 [facility] [id number]) Out-Patient Physical Therapy Visit Information Visit Information Visit Type Progress Note Visit Start Time 09:47 Visit Stop Time 10:29 Total Visit Minutes 42 Visit Number Number of COMPUTED TOMOGRAPHY SCANNER OPERATOR Visits 0 PT-OP-B Current Condition Start: 08/22/20 07:37 Freq: Status: Active Protocol: Document 08/23/20 12:13 MB (Rec: 08/23/20 13:04 MB [id number]) Current Condition History of Current Condition Onset Date Surgery 07/27/20 Current Complaints Dizziness, light-headedness, ETIENNE and left leg pain and imbalance History of Current Condition 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 Pt had fall and concussion then as passed out. In PMH, pt writes back pain, superficial blood clot right LE, ulcers. Current complaints include: dizziness when active (walking and movements of neck), decreased processing words, headaches managed by medications, trouble opening right side of jaw post-op, neck pain and stiffness. Pt denies falls since surgery. Pt is wearing an ice hat. Pt reports pain right side of head, left jaw and left thigh. ETIENNE pain gets up to 5/10 with medication. Her neck pain is 4 /10. Left leg pain gets up to 7/10. She reports left leg pain as deep and shooting. Pt reports pain with walking on left leg. Pt reports that her left leg feels weak. The Cymbalta helps with nerve pain . Pt reports that her right eye brown does not yet move after surgery and the right side of her head is swollen. Mother states that pt still does not have any appetite. Treatment Goals Patient/Caregiver Goals Decrease pain, increase balance and leg strength. PT-OP-C Subjective Start: 08/22/20 07:37 Freq: Status: Active Protocol: Document 05/07/22 09:46 [facility] (Rec: 05/07/22 12:19 [facility] [id number]) OP-PT Subjective Patient Comments Patient Comments Pt reprots L shoulder, elbow, wrist, hip and knee are bothering her. It has been for about 1.5 weeks since the weather. She is waking up with body aches and it just gets worse in the evening. It feels like bones hurt. This is new this winter. No other new symptoms but HAs have been worse. She didn't realize how much better her body felt in the warmer weather until this major change. PT-OP-D Balance Start: 08/22/20 07:37 Freq: Status: Active Protocol: Document 08/23/20 12:13 MB (Rec: 08/23/20 14:14 MB [id number]) Balance Tests Romberg Romberg LOB to the right and then the left, socks and no shoes PT-OP-E Functional Tests Start: 08/30/21 14:38 Freq: Status: Active Protocol: Document 05/07/22 09:46 [facility] (Rec: 05/07/22 12:19 [facility] [id number]) Functional Tests 6 Minute Walk Test Distance 1530ft Device Used none Functional Gait Assessment Score 22 PT-OP-G Mobility & Gait Start: 08/22/20 07:37 Freq: Status: Active Protocol: Document 08/23/20 12:13 MB (Rec: 08/23/20 14:14 MB [id number]) OP Gait Assessment Gait Gait Assistance Required: Independent Distance (Feet) 50 Able to Maintain Weight Bearing Status Yes During Gait Assistive Devices Assistive Device None Orthotic/Prosthetic Devices or Brace: No Gait Deviations General Gait Pattern Decreased Stride Length Factors Limiting Gait Function Factors Limiting Gait Function Decreased Strength,Pain,Poor Balance Comments Gait Comments Pt favors the left leg, looks down at the floor, presents with hesitancy with gait PT-OP-H Neuro Start: 08/22/20 07:37 Freq: Status: Active Protocol: Document 08/23/20 12:13 MB (Rec: 08/23/20 14:14 MB [id number]) Sensation Evaluation Comments Summary Comments Pt reports numbness right temporal area and eye brow Coordination Evaluation Upper Extremity Tests Right Finger to Nose Test Normal Performance Pronation/Supination Test Normal Performance Left Finger to Nose Test Normal Performance Pronation/Supination Test Minimal Impairment Comments Coordination Comments Right toe tapping over opposite foot normal x5 reps, rapid and accurate. Slow with left toe tapping over right foot and inaccurate, given for exercise for home: 10 reps every hour when sitting Vital Signs Pulse 1 Pulse at Rest (bpm) 77 Pulse Assessment Method Cuff Blood Pressure Sitting Blood Pressure (90/60-120/80 mmHg) 132/90 H Blood Pressure Source Automatic Cuff,Right Upper Extremity Comments Vital Signs Comments Doctor note for BP written under precautions, pt is in recommended range today PT-OP-J Posture/Palpation/Skin Start: 08/22/20 07:37 Freq: Status: Active Protocol: Document 05/07/22 09:46 [facility] (Rec: 05/07/22 12:19 [facility] [id number]) Posture Evaluation Mihir Postural Classification System Vertebral Compression Test 2 Lumbar Protective Mechanism Left AP 0 Lumbar Protective Mechanism Right AP 0 Lumbar Protective Mechanism Left PA 0 Lumbar Protective Mechanism Right PA 0 PT-OP-K Range of Motion Start: 08/22/20 07:37 Freq: Status: Active Protocol: Document 08/23/20 12:13 MB (Rec: 08/23/20 14:14 MB [id number]) TMJ Range of Motion Comments Comments R eyebrow does not raise, can minimally lower. Pt presents with mild right jaw deviation and minimal dropping of left side of mouth with smile Toe Range of Motion Toes ROM Limitations Comments Decreased active left great toe extension compared to the right PT-OP-M Strength Start: 08/22/20 07:37 Freq: Status: Active Protocol: Document 05/07/22 09:46 [facility] (Rec: 05/07/22 12:19 [facility] [id number]) Shoulder Strength Shoulder Manual Muscle Testing Left Flexion 5 Normal Abduction (C5) 5 Normal Adduction 5 Normal Right Flexion 5 Normal Abduction (C5) 5 Normal Hip Strength Hip Manual Muscle Testing Left Flexion (L2) 4+ Good+ Extension (S1) 4+ Good+ Abduction 4- Good- Adduction 5 Normal External Rotation 5 Normal Internal Rotation 4 Good Right Flexion (L2) 5 Normal Extension (S1) 5 Normal Abduction 4+ Good+ Adduction 5 Normal External Rotation 5 Normal Internal Rotation 4+ Good+ Knee Strength Knee Manual Muscle Testing Left Flexion (S2) 5 Normal Extension (L3) 4 Good Comments Pt sitting Right Flexion (S2) 5 Normal Extension (L3) 5 Normal Comments Pt sitting Ankle/Foot Strength Ankle and Foot Manual Muscle Testing Left Dorsiflexion (L4) 5 Normal Plantarflexion (S1) 5 Normal Comments 20 heel raises Right Dorsiflexion (L4) 5 Normal Plantarflexion (S1) 5 Normal Comments 20 heel raises PT-OP-O Vestibular Start: 08/22/20 07:37 Freq: Status: Active Protocol: Document 08/23/20 12:13 MB (Rec: 08/23/20 14:14 MB [id number]) Vestibular Assessment Visual Testing Smooth Pursuits Horizontal Normal Smooth Pursuits Vertical Normal Gaze Evoked Nystagmus With Fixation Negative Convergence Test R impaired Spontaneous Nystagmus Negative Comments Vestibular Comments Left pupil with decreased reactivity to pen light but very minimal PT-OP-Q Treatments Start: 08/22/20 07:37 Freq: Status: Active Protocol: Document 05/07/22 09:46 [facility] (Rec: 05/07/22 12:19 [facility] [id number]) Manual Therapy Treatment Soft Tissue Mobilization hip Body Location L glutes border & HS, iliacus Mobilization Type Sustained Pressure Intensity/Depth Moderate Comments w/c/r Joint Mobilizations hip Joint L Direction inf FM & IR FM Body Position Supine PT-OP-T Assessment and Plan Start: 08/22/20 07:37 Freq: Status: Active Protocol: Document 05/07/22 09:46 [facility] (Rec: 05/07/22 12:19 [facility] [id number]) Physical Therapy Assessment Goals 5 Family Medicine Physician Goal (LTG) Pt will gait train at least 1650 feet in 6 minutes without AD and no LOB or dragging finger on the wall for steadying assist by 08/31/21. 07/03/21: Pt gait trains 1654 feet in 6 minutes with occ left index finger dragging along wall to assist with balance with anti-clockwise gait. 06/02/21: Pt gait trains 1541 feet in 6 minutes, walking anti-clockwise. Twice, she rubs left hand on corner when turning to the left in the hallway. She has increased arms out and right arm swing and left LE does not move as well motor-viera compared to the right and requires effort to clear foot each time. Pt is wearing short wellingtons and this may cause exaggeration of lifting foot, requiring more effort which shows as such on the left. 03/29/21: Pt gait trains 1531 feet in 6 minutes, which is 3 feet further than when last tested in October 202008/30-1431ft 11/28-1481ft 02/20/22-1523ft touched wall 1x & mild instability throughout 05/07-1530ft w/less notable instability- only 2x slight uneven movement of trunk LTG Duration 07/10/22 4 Family Medicine Physician Goal (LTG) Pt will perform progressive HEP with I including postural, flexibility, balance, LE strengthening, breathing, and VOR exercises to decrease symptoms and improve balance by 08/31/21. 07/03/21: Pt is performing band exercises for legs, back records assistant self-massage, breathing, walking the dog, pelvic realignment exercises and balance exercises in the hallway. She is doing exercises 1-2x/wk. 08/30-pt walking and doing exercises at home plan to update and progress program 11/28-advancing based on cont deficits LTG Duration achieved and progressing as able 3 Family Medicine Physician Goal (LTG) 11/28-change goal to at least 4 +/5 all LE MMT as UE MMT is WNL 02/20-abd, IR still limited but overall much improved 05/17-slowly improved LTG Duration 07/10/22 2 Family Medicine Physician Goal (LTG) Pt will report a 70% improvement in dizziness and headache symptoms to allow return to PLOF by 08/31/21. 07/03/21: Pt reports flare-up of symptoms since the snow. 03/29/21: Pt reports that in the recent weeks, her dizziness has gotten worse. It gets worse when she does not have PT for a long time and when she is playin with her down. Squatting too fast and sudden head movements are provocative. 08/30-pt reports no big change but does feel better fro the rest of the day after last session 11/28-dizziness has improved about 50%; ETIENNE about 75% improvement since start of PT 02/20-a lot of inc dizziness since tilt test 05/07-back to how it was prior to tilt test. ETIENNE worse in cold LTG Duration 07/12/22 1 Family Medicine Physician Goal (LTG) Pt will perform WNLs on FGA to decrease fall risk and improve balance by 08/31/21. 07/03/21: FGA score is slightly improved with score 18/30 and pt reporting gait with head turns up and down and walking with eyes closed being the most symptomatic. Tandem gait is still not very possible. Turning at the end of the hallway required her to reach out to catch her balance. 08/30- 11/28- improved 02/20--today was a bad day and pt scored same, but typically would do better on mult of the task. 05/07- LTG Duration 07/10/22 Assessment Summary Assessment Improved hip ROM w/manual. Pt is showing good progress with blaance and gait mechanics and overall strength but is still showing dec core stability and has had inc painr ecently which she was instructed to inform her MD of. She would benefit from cont PT to dec pain, improve postural stabiltiy and improved balance and strength. Physical Therapy Plan Frequency and Duration Frequency of Treatment 1/2x/wk Duration of treatment (weeks) 10 Plan of Care Start Date 05/07/22 Plan of Care End Date 07/16/22 Therapeutic Interventions Therapeutic Interventions Balance Training,Canalithic Repositioning,Coordination Training,Gait Training,Home Exercise Program,Joint Mobilizations,Manual Therapy, Neuromuscular Re-education, Patient/Caregiver Education, Self-Care/Home Management, Sensory Integration,Soft Tissue Mobilization,Taping, Therapeutic Activities, Therapeutic Exercises, Vestibular Rehabilitation Modalities Cold Pack/Ice Massage,Electric Stimulation,Hot Packs, Ultrasound Next Visit Focus/Plan Next Note Type Treatment Note Next Visit Plan cont to work on ability to flex and ext neck w/o symptoms & improve postural stability & core stability
--- NOTE | 2022-05-07 12:20 | PT.OPPOC ---
Physical, Occupational & Speech Therapy At 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) Headache, unspecified (05/07/22) Weakness (05/07/22) Visit Care Team Role Provider Type Christen Figueroa PA-C Primary Care Provider Non-Staff Specialty: Family Practice Address: [address], [address], [place], [address] Email: TONE Riley Attending Provider Non-Staff Referring Provider Specialty: Nursing Address: [address], [place], [address] Email: Plan Of Care PT-OP-T Assessment and Plan Start: 08/22/20 07:37 Freq: Status: Active Protocol: Document 05/07/22 09:46 [facility] (Rec: 05/07/22 12:19 [facility] [id number]) Physical Therapy Assessment Goals 5 Signal And Communications Maintainer Goal (LTG) Pt will gait train at least 1650 feet in 6 minutes without AD and no LOB or dragging finger on the wall for steadying assist by 08/31/21. 07/03/21: Pt gait trains 1654 feet in 6 minutes with occ left index finger dragging along wall to assist with balance with anti-clockwise gait. 06/02/21: Pt gait trains 1541 feet in 6 minutes, walking anti-clockwise. Twice, she rubs left hand on corner when turning to the left in the hallway. She has increased arms out and right arm swing and left LE does not move as well motor-viera compared to the right and requires effort to clear foot each time. Pt is wearing short wellingtons and this may cause exaggeration of lifting foot, requiring more effort which shows as such on the left. 03/29/21: Pt gait trains 1531 feet in 6 minutes, which is 3 feet further than when last tested in October 202008/30-143ft 11/28-148ft 02/20/22-1523ft touched wall 1x & mild instability throughout 05/07-153ft w/less notable instability- only 2x slight uneven movement of trunk LTG Duration 1/10/23 4 Signal And Communications Maintainer Goal (LTG) Pt will perform progressive HEP with I including postural, flexibility, balance, LE strengthening, breathing, and VOR exercises to decrease symptoms and improve balance by 08/31/21. 07/03/21: Pt is performing band exercises for legs, back driller hand self-massage, breathing, walking the dog, pelvic realignment exercises and balance exercises in the hallway. She is doing exercises 1-2x/wk. 3-pt walking and doing exercises at home plan to update and progress program 11/28-advancing based on cont deficits LTG Duration achieved and progressing as able 3 Signal And Communications Maintainer Goal (LTG) 11/28-change goal to at least 4 +/5 all LE MMT as UE MMT is WNL 02/20-abd, IR still limited but overall much improved 05/17-slowly improved LTG Duration 07/10/22 2 Care Home Goal (LTG) Pt will report a 70% improvement in dizziness and headache symptoms to allow return to PLOF by 08/31/21. 07/03/21: Pt reports flare-up of symptoms since the snow. 03/29/21: Pt reports that in the recent weeks, her dizziness has gotten worse. It gets worse when she does not have PT for a long time and when she is playin with her down. Squatting too fast and sudden head movements are provocative. 3-pt reports no big change but does feel better fro the rest of the day after last session 11/28-dizziness has improved about 50%; ETIENNE about 75% improvement since start of PT 02/20-a lot of inc dizziness since tilt test 05/07-back to how it was prior to tilt test. ETIENNE worse in cold LTG Duration 07/12/22 1 Signal And Communications Maintainer Goal (LTG) Pt will perform WNLs on FGA to decrease fall risk and improve balance by 08/31/21. 07/03/21: FGA score is slightly improved with score 18/30 and pt reporting gait with head turns up and down and walking with eyes closed being the most symptomatic. Tandem gait is still not very possible. Turning at the end of the hallway required her to reach out to catch her balance. 08/30- 11/28- improved 02/20--today was a bad day and pt scored same, but typically would do better on mult of the task. 05/07- LTG Duration 07/10/22 Assessment Summary Assessment Improved hip ROM w/manual. Pt is showing good progress with blaance and gait mechanics and overall strength but is still showing dec core stability and has had inc painr ecently which she was instructed to inform her MD of. She would benefit from cont PT to dec pain, improve postural stabiltiy and improved balance and strength. Physical Therapy Plan Frequency and Duration Frequency of Treatment 1/2x/wk Duration of treatment (weeks) 10 Plan of Care Start Date 05/07/22 Plan of Care End Date 07/16/22 Therapeutic Interventions Therapeutic Interventions Balance Training,Canalithic Repositioning,Coordination Training,Gait Training,Home Exercise Program,Joint Mobilizations,Manual Therapy, Neuromuscular Re-education, Patient/Caregiver Education, Self-Care/Home Management, Sensory Integration,Soft Tissue Mobilization,Taping, Therapeutic Activities, Therapeutic Exercises, Vestibular Rehabilitation Modalities Cold Pack/Ice Massage,Electric Stimulation,Hot Packs, Ultrasound Next Visit Focus/Plan Next Note Type Treatment Note Next Visit Plan cont to work on ability to flex and ext neck w/o symptoms & improve postural stability & core stability Plan of Care Dates Plan of Care Start Date 05/07/22 Plan of Care End Date 07/16/22 Electronically Signed by: Tanya Dhaliwal, PT 05/07/22 2048 If you are in agreement with this Plan of Care, please return a signed and dated copy. I have reviewed this Plan of Care and certify that the skilled therapy services above are required to meet the patient?s needs. Physician Signature Date Printed Name and Credentials Clinical Instructor Signature Printed Name and Credentials
--- NOTE | 2022-05-10 15:25 | PT.OTN ---
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 (Rec: 05/10/22 15:25 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 Pt had fall and concussion then as passed out. In PMH, pt writes back pain, superficial blood clot right LE, ulcers. Current complaints include: dizziness when active (walking and movements of neck), decreased processing words, headaches managed by medications, trouble opening right side of jaw post-op, neck pain and stiffness. Pt denies falls since surgery. Pt is wearing an ice hat. Pt reports pain right side of head, left jaw and left thigh. ETIENNE pain gets up to 5/10 with medication. Her neck pain is 4 /10. Left leg pain gets up to 7/10. She reports left leg pain as deep and shooting. Pt reports pain with walking on left leg. Pt reports that her left leg feels weak. The Cymbalta helps with nerve pain . Pt reports that her right eye brown does not yet move after surgery and the right side of her head is swollen. Mother states that pt still does not have any appetite. Treatment Goals Patient/Caregiver Goals Decrease pain, increase balance and leg strength. PT-OP-C Subjective Start: 08/22/20 07:37 Freq: Status: Active Protocol: Document 05/10/22 14:45 [facility] (Rec: 05/10/22 15:25 [facility] [id number]) OP-PT Subjective Patient Comments Patient Comments Pt reports she just woke from a nap so feels pretty good. PT-OP-D Balance Start: 08/22/20 07:37 Freq: Status: Active Protocol: Document 08/23/20 12:13 MB (Rec: 08/23/20 14:14 MB [id number]) Balance Tests Romberg Romberg LOB to the right and then the left, socks and no shoes PT-OP-E Functional Tests Start: 08/30/21 14:38 Freq: Status: Active Protocol: Document 05/07/22 09:46 [facility] (Rec: 05/07/22 12:19 [facility] [id number]) Functional Tests 6 Minute Walk Test Distance 1530ft Device Used none Functional Gait Assessment Score 22 PT-OP-G Mobility & Gait Start: 08/22/20 07:37 Freq: Status: Active Protocol: Document 08/23/20 12:13 MB (Rec: 08/23/20 14:14 MB [id number]) OP Gait Assessment Gait Gait Assistance Required: Independent Distance (Feet) 50 Able to Maintain Weight Bearing Status Yes During Gait Assistive Devices Assistive Device None Orthotic/Prosthetic Devices or Brace: No Gait Deviations General Gait Pattern Decreased Stride Length Factors Limiting Gait Function Factors Limiting Gait Function Decreased Strength,Pain,Poor Balance Comments Gait Comments Pt favors the left leg, looks down at the floor, presents with hesitancy with gait PT-OP-H Neuro Start: 08/22/20 07:37 Freq: Status: Active Protocol: Document 08/23/20 12:13 MB (Rec: 08/23/20 14:14 MB [id number]) Sensation Evaluation Comments Summary Comments Pt reports numbness right temporal area and eye brow Coordination Evaluation Upper Extremity Tests Right Finger to Nose Test Normal Performance Pronation/Supination Test Normal Performance Left Finger to Nose Test Normal Performance Pronation/Supination Test Minimal Impairment Comments Coordination Comments Right toe tapping over opposite foot normal x5 reps, rapid and accurate. Slow with left toe tapping over right foot and inaccurate, given for exercise for home: 10 reps every hour when sitting Vital Signs Pulse 1 Pulse at Rest (bpm) 77 Pulse Assessment Method Cuff Blood Pressure Sitting Blood Pressure (90/60-120/80 mmHg) 132/90 H Blood Pressure Source Automatic Cuff,Right Upper Extremity Comments Vital Signs Comments Doctor note for BP written under precautions, pt is in recommended range today PT-OP-J Posture/Palpation/Skin Start: 08/22/20 07:37 Freq: Status: Active Protocol: Document 05/07/22 09:46 [facility] (Rec: 05/07/22 12:19 [facility] [id number]) Posture Evaluation [facility] Postural Classification System Vertebral Compression Test 2 Lumbar Protective Mechanism Left AP 0 Lumbar Protective Mechanism Right AP 0 Lumbar Protective Mechanism Left PA 0 Lumbar Protective Mechanism Right PA 0 PT-OP-K Range of Motion Start: 08/22/20 07:37 Freq: Status: Active Protocol: Document 08/23/20 12:13 MB (Rec: 08/23/20 14:14 MB [id number]) TMJ Range of Motion Comments Comments R eyebrow does not raise, can minimally lower. Pt presents with mild right jaw deviation and minimal dropping of left side of mouth with smile Toe Range of Motion Toes ROM Limitations Comments Decreased active left great toe extension compared to the right PT-OP-M Strength Start: 08/22/20 07:37 Freq: Status: Active Protocol: Document 05/07/22 09:46 [facility] (Rec: 05/07/22 12:19 [facility] [id number]) Shoulder Strength Shoulder Manual Muscle Testing Left Flexion 5 Normal Abduction (C5) 5 Normal Adduction 5 Normal Right Flexion 5 Normal Abduction (C5) 5 Normal Hip Strength Hip Manual Muscle Testing Left Flexion (L2) 4+ Good+ Extension (S1) 4+ Good+ Abduction 4- Good- Adduction 5 Normal External Rotation 5 Normal Internal Rotation 4 Good Right Flexion (L2) 5 Normal Extension (S1) 5 Normal Abduction 4+ Good+ Adduction 5 Normal External Rotation 5 Normal Internal Rotation 4+ Good+ Knee Strength Knee Manual Muscle Testing Left Flexion (S2) 5 Normal Extension (L3) 4 Good Comments Pt sitting Right Flexion (S2) 5 Normal Extension (L3) 5 Normal Comments Pt sitting Ankle/Foot Strength Ankle and Foot Manual Muscle Testing Left Dorsiflexion (L4) 5 Normal Plantarflexion (S1) 5 Normal Comments 20 heel raises Right Dorsiflexion (L4) 5 Normal Plantarflexion (S1) 5 Normal Comments 20 heel raises PT-OP-O Vestibular Start: 08/22/20 07:37 Freq: Status: Active Protocol: Document 08/23/20 12:13 MB (Rec: 08/23/20 14:14 MB [id number]) Vestibular Assessment Visual Testing Smooth Pursuits Horizontal Normal Smooth Pursuits Vertical Normal Gaze Evoked Nystagmus With Fixation Negative Convergence Test R impaired Spontaneous Nystagmus Negative Comments Vestibular Comments Left pupil with decreased reactivity to pen light but very minimal PT-OP-Q Treatments Start: 08/22/20 07:37 Freq: Status: Active Protocol: Document 05/10/22 14:45 [facility] (Rec: 05/10/22 15:25 [facility] [id number]) Therapeutic Exercises Prone Exercises plank Side bilateral Reps/Minutes 20 sec x2 Standing Exercises sidestep Side bilateral Equipment Used l1 Reps/Minutes 10ft Comments stopped d/t L knee pain lunges Side bilateral Equipment Used rail Reps/Minutes 10 ea Comments mini comfortable range squat Side bilateral Reps/Minutes 12 Comments over cahir Other Exercises quadruped Other Exercise Name alt hip ext Side bilateral Reps/Minutes 10 Manual Therapy Treatment Soft Tissue Mobilization hip Body Location L glutes border & HS, iliacus & quad Mobilization Type Sustained Pressure Intensity/Depth Moderate Comments w/c/r-supine & prone Joint Mobilizations innominate Joint L Direction flex FM hip Joint L Direction inf, ER FM PT-OP-T Assessment and Plan Start: 08/22/20 07:37 Freq: Status: Active Protocol: Document 05/10/22 14:45 [facility] (Rec: 05/10/22 15:25 [facility] [id number]) Physical Therapy Assessment Goals 5 Thread Singer Goal (LTG) Pt will gait train at least 1650 feet in 6 minutes without AD and no LOB or dragging finger on the wall for steadying assist by 08/31/21. 07/03/21: Pt gait trains 1654 feet in 6 minutes with occ left index finger dragging along wall to assist with balance with anti-clockwise gait. 06/02/21: Pt gait trains 1541 feet in 6 minutes, walking anti-clockwise. Twice, she rubs left hand on corner when turning to the left in the hallway. She has increased arms out and right arm swing and left LE does not move as well motor-viera compared to the right and requires effort to clear foot each time. Pt is wearing short wellingtons and this may cause exaggeration of lifting foot, requiring more effort which shows as such on the left. 03/29/21: Pt gait trains 1531 feet in 6 minutes, which is 3 feet further than when last tested in October 202008/30-1431ft 11/28-1481ft 02/20/22-1523ft touched wall 1x & mild instability throughout 05/07-1530ft w/less notable instability- only 2x slight uneven movement of trunk LTG Duration 07/10/22 4 [facility] Goal (LTG) Pt will perform progressive HEP with I including postural, flexibility, balance, LE strengthening, breathing, and VOR exercises to decrease symptoms and improve balance by 08/31/21. 07/03/21: Pt is performing band exercises for legs, back pit boss self-massage, breathing, walking the dog, pelvic realignment exercises and balance exercises in the hallway. She is doing exercises 1-2x/wk. 08/30-pt walking and doing exercises at home plan to update and progress program 11/28-advancing based on cont deficits LTG Duration achieved and progressing as able 3 Thread Singer Goal (LTG) 11/28-change goal to at least 4 +/5 all LE MMT as UE MMT is WNL 02/20-abd, IR still limited but overall much improved 05/17-slowly improved LTG Duration 07/10/22 2 [employer] Goal (LTG) Pt will report a 70% improvement in dizziness and headache symptoms to allow return to PLOF by 08/31/21. 07/03/21: Pt reports flare-up of symptoms since the snow. 03/29/21: Pt reports that in the recent weeks, her dizziness has gotten worse. It gets worse when she does not have PT for a long time and when she is playin with her down. Squatting too fast and sudden head movements are provocative. 08/30-pt reports no big change but does feel better fro the rest of the day after last session 11/28-dizziness has improved about 50%; ETIENNE about 75% improvement since start of PT 02/20-a lot of inc dizziness since tilt test 05/07-back to how it was prior to tilt test. ETIENNE worse in cold LTG Duration 07/12/22 1 [facility] Goal (LTG) Pt will perform WNLs on FGA to decrease fall risk and improve balance by 08/31/21. 07/03/21: FGA score is slightly improved with score 18/30 and pt reporting gait with head turns up and down and walking with eyes closed being the most symptomatic. Tandem gait is still not very possible. Turning at the end of the hallway required her to reach out to catch her balance. 08/30- 11/28- improved 02/20--today was a bad day and pt scored same, but typically would do better on mult of the task. 05/07- LTG Duration 07/10/22 Assessment Summary Assessment Pt reports relief in LLE with manual and she had improved abd, ER and flex ROM w/less pain. Some discomfort w/full lunge so did only partial. Physical Therapy Plan Frequency and Duration Frequency of Treatment 1/2x/wk Duration of treatment (weeks) 10 Plan of Care Start Date 05/07/22 Plan of Care End Date 07/16/22 Next Visit Focus/Plan Next Note Type Treatment Note Next Visit Plan cont to work on ability to flex and ext neck w/o symptoms & improve postural stability & core stability
--- NOTE | 2022-05-30 09:42 | PT-OP ANOTE ---
All patient appts cancelled through May 2022 due to insurance authorization issues. Next following appt Jul 16 scheduled with primary PT.
--- NOTE | 2022-07-16 17:53 | PT.OTN ---
Current Diagnoses Moyamoya disease (07/16/22) Headache, unspecified (07/16/22) Weakness (07/16/22) Physical Therapy Treatment Note PT-OP-A Visit Information Start: 08/22/20 07:37 Freq: Status: Active Protocol: Document 07/16/22 17:17 [facility] (Rec: 07/16/22 17:17 [facility] [id number]) Out-Patient Physical Therapy Visit Information Visit Information Visit Type Progress Note Visit Note 25 visits total at this time Visit Start Time 16:48 Visit Stop Time 17:33 Total Visit Minutes 45 Visit Number 07/24 2022 Number of DAMASCENER Visits 0 PT-OP-B Current Condition Start: 08/22/20 07:37 Freq: Status: Active Protocol: Document 08/23/20 12:13 MB (Rec: 08/23/20 13:04 MB [id number]) Current Condition History of Current Condition Onset Date Surgery 07/27/20 Current Complaints Dizziness, light-headedness, ETIENNE and left leg pain and imbalance History of Current Condition 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 Pt had fall and concussion then as passed out. In PMH, pt writes back pain, superficial blood clot right LE, ulcers. Current complaints include: dizziness when active (walking and movements of neck), decreased processing words, headaches managed by medications, trouble opening right side of jaw post-op, neck pain and stiffness. Pt denies falls since surgery. Pt is wearing an ice hat. Pt reports pain right side of head, left jaw and left thigh. ETIENNE pain gets up to 5/10 with medication. Her neck pain is 4 /10. Left leg pain gets up to 7/10. She reports left leg pain as deep and shooting. Pt reports pain with walking on left leg. Pt reports that her left leg feels weak. The Cymbalta helps with nerve pain . Pt reports that her right eye brown does not yet move after surgery and the right side of her head is swollen. Mother states that pt still does not have any appetite. Treatment Goals Patient/Caregiver Goals Decrease pain, increase balance and leg strength. PT-OP-C Subjective Start: 08/22/20 07:37 Freq: Status: Active Protocol: Document 07/16/22 17:17 [facility] (Rec: 07/16/22 17:17 [facility] [id number]) OP-PT Subjective Patient Comments Patient Comments pt reports her ETIENNE have been worse recently at a 7-8/10 daily instead of before at 5-6 /10. She got COVID around xmas time and since then ETIENNE have been worse and fatigue has been worse. She is noticing difficulty with turning corners and often has to grab the wall to stabilize herself. PT-OP-D Balance Start: 08/22/20 07:37 Freq: Status: Active Protocol: Document 07/16/22 17:17 [facility] (Rec: 07/16/22 17:17 [facility] [id number]) Balance Tests Single Limb Standing Single Limb- Right 2 sec Single Limb- Left 2 sec PT-OP-E Functional Tests Start: 08/30/21 14:38 Freq: Status: Active Protocol: Document 07/16/22 17:17 [facility] (Rec: 07/16/22 17:17 [facility] [id number]) Functional Tests 6 Minute Walk Test Distance 1522ft Device Used none 30 Second Sit to Stand Test Score 10 Dynamic Gait Index (DGI) Score 17 Five Times Sit to Stand Test Score 15 sec Functional Gait Assessment Score 17 PT-OP-G Mobility & Gait Start: 08/22/20 07:37 Freq: Status: Active Protocol: Document 08/23/20 12:13 MB (Rec: 08/23/20 14:14 MB [id number]) OP Gait Assessment Gait Gait Assistance Required: Independent Distance (Feet) 50 Able to Maintain Weight Bearing Status Yes During Gait Assistive Devices Assistive Device None Orthotic/Prosthetic Devices or Brace: No Gait Deviations General Gait Pattern Decreased Stride Length Factors Limiting Gait Function Factors Limiting Gait Function Decreased Strength,Pain,Poor Balance Comments Gait Comments Pt favors the left leg, looks down at the floor, presents with hesitancy with gait PT-OP-H Neuro Start: 08/22/20 07:37 Freq: Status: Active Protocol: Document 08/23/20 12:13 MB (Rec: 08/23/20 14:14 MB [id number]) Sensation Evaluation Comments Summary Comments Pt reports numbness right temporal area and eye brow Coordination Evaluation Upper Extremity Tests Right Finger to Nose Test Normal Performance Pronation/Supination Test Normal Performance Left Finger to Nose Test Normal Performance Pronation/Supination Test Minimal Impairment Comments Coordination Comments Right toe tapping over opposite foot normal x5 reps, rapid and accurate. Slow with left toe tapping over right foot and inaccurate, given for exercise for home: 10 reps every hour when sitting Vital Signs Pulse 1 Pulse at Rest (bpm) 77 Pulse Assessment Method Cuff Blood Pressure Sitting Blood Pressure (90/60-120/80 mmHg) 132/90 H Blood Pressure Source Automatic Cuff,Right Upper Extremity Comments Vital Signs Comments Doctor note for BP written under precautions, pt is in recommended range today PT-OP-J Posture/Palpation/Skin Start: 08/22/20 07:37 Freq: Status: Active Protocol: Document 07/16/22 17:17 [facility] (Rec: 07/16/22 17:17 [facility] [id number]) Posture Evaluation Mihir Postural Classification System Vertebral Compression Test 3 Lumbar Protective Mechanism Left AP 1 Lumbar Protective Mechanism Right AP 2 Lumbar Protective Mechanism Left PA 2 Lumbar Protective Mechanism Right PA 1 PT-OP-K Range of Motion Start: 08/22/20 07:37 Freq: Status: Active Protocol: Document 07/16/22 17:17 [facility] (Rec: 07/16/22 17:20 [facility] [id number]) Cervical Spine Range of Motion Cervical Spine Active Degrees Flexion 56 Extension 48 Rotation Left 62 Rotation Right 71 Lateral Flexion Left 45 Lateral Flexion Right 50 Comments mild nausea w/flex, nausea & pain in neck (pinch), pinching R w/R SB; dizzy w/L rot PT-OP-M Strength Start: 08/22/20 07:37 Freq: Status: Active Protocol: Document 07/16/22 17:17 [facility] (Rec: 07/16/22 17:17 [facility] [id number]) Cervical Spine Strength Cervical Spine Manual Muscle Testing Flexion (C1-2) 3+ Fair+ Extension 3+ Fair+ Rotation Left 4 Good Rotation Right 4 Good Lateral Flexion Left (C3) 4 Good Lateral Flexion Right (C3) 4 Good Hip Strength Hip Manual Muscle Testing Left Flexion (L2) 4 Good Extension (S1) 4 Good Abduction 4- Good- Adduction 5 Normal External Rotation 5 Normal Internal Rotation 4 Good Right Flexion (L2) 4 Good Extension (S1) 4 Good Abduction 4+ Good+ Adduction 5 Normal External Rotation 5 Normal Internal Rotation 4+ Good+ Knee Strength Knee Manual Muscle Testing Left Flexion (S2) 5 Normal Extension (L3) 5 Normal Comments Pt sitting Right Flexion (S2) 5 Normal Extension (L3) 5 Normal Comments Pt sitting Ankle/Foot Strength Ankle and Foot Manual Muscle Testing Left Dorsiflexion (L4) 5 Normal Plantarflexion (S1) 5 Normal Comments 20 heel raises Right Dorsiflexion (L4) 5 Normal Plantarflexion (S1) 5 Normal Comments 20 heel raises PT-OP-O Vestibular Start: 08/22/20 07:37 Freq: Status: Active Protocol: Document 08/23/20 12:13 MB (Rec: 08/23/20 14:14 MB [id number]) Vestibular Assessment Visual Testing Smooth Pursuits Horizontal Normal Smooth Pursuits Vertical Normal Gaze Evoked Nystagmus With Fixation Negative Convergence Test R impaired Spontaneous Nystagmus Negative Comments Vestibular Comments Left pupil with decreased reactivity to pen light but very minimal PT-OP-Q Treatments Start: 08/22/20 07:37 Freq: Status: Active Protocol: Document 07/16/22 17:17 [facility] (Rec: 07/16/22 17:52 [facility] [id number]) Manual Therapy Treatment Soft Tissue Mobilization cervical Body Location B SO, cervical paraspinals, UT, LS Mobilization Type Rolling,Strumming,Sustained Pressure Intensity/Depth Moderate Comments supine cranial fascia Body Location R>L Mobilization Type Myofascial Release Intensity/Depth Superficial Body Position Hooklying Comments and into R forehead PT-OP-T Assessment and Plan Start: 08/22/20 07:37 Freq: Status: Active Protocol: Document 07/16/22 17:17 [facility] (Rec: 07/16/22 17:17 [facility] [id number]) Physical Therapy Assessment Goals 5 [facility] Goal (LTG) Pt will gait train at least 1650 feet in 6 minutes without AD and no LOB or dragging finger on the wall for steadying assist by 08/31/21. 07/03/21: Pt gait trains 1654 feet in 6 minutes with occ left index finger dragging along wall to assist with balance with anti-clockwise gait. 06/02/21: Pt gait trains 1541 feet in 6 minutes, walking anti-clockwise. Twice, she rubs left hand on corner when turning to the left in the hallway. She has increased arms out and right arm swing and left LE does not move as well motor-viera compared to the right and requires effort to clear foot each time. Pt is wearing short wellingtons and this may cause exaggeration of lifting foot, requiring more effort which shows as such on the left. 03/29/21: Pt gait trains 1531 feet in 6 minutes, which is 3 feet further than when last tested in October 202008/30-1431ft 11/28-1481ft 02/20/22-1523ft touched wall 1x & mild instability throughout 05/07-1530ft w/less notable instability- only 2x slight uneven movement of trunk 07/16-occ touching of wall 1522ft LTG Duration 10/08/22 4 [facility] Goal (LTG) Pt will be able to do all ROM of neck WNL w/o inc pain or feeling of nausea or dizziness LTG Duration 10/08/22 3 Short Term Goal (STG) Pt will perform progressive HEP with I including postural, flexibility, balance, LE strengthening, breathing, and VOR exercises to decrease symptoms and improve balance by 08/31/21. 07/03/21: Pt is performing band exercises for legs, back forms analysis manager self-massage, breathing, walking the dog, pelvic realignment exercises and balance exercises in the hallway. She is doing exercises 1-2x/wk. 08/30-pt walking and doing exercises at home plan to update and progress program 11/28-advancing based on cont deficits STG Duration achieved and progressing as able Band Sawing Machine Operator Goal (LTG) Pt will have at least 4+/5 all LE MMT 02/20-abd, IR still limited but overall much improved 05/17-slowly improved 07/16-no major change LTG Duration 10/08/22 2 Band Sawing Machine Operator Goal (LTG) Pt will report a 70% improvement in dizziness and headache symptoms to allow return to PLOF by 08/31/21. 07/03/21: Pt reports flare-up of symptoms since the snow. 03/29/21: Pt reports that in the recent weeks, her dizziness has gotten worse. It gets worse when she does not have PT for a long time and when she is playin with her down. Squatting too fast and sudden head movements are provocative. 3/-pt reports no big change but does feel better fro the rest of the day after last session 11/28-dizziness has improved about 50%; ETIENNE about 75% improvement since start of PT 02/20-a lot of inc dizziness since tilt test 05/07-back to how it was prior to tilt test. ETIENNE worse in cold 07/16-adjust goal to Pt will report ETIENNE no greater than 10 LTG Duration 10/08/22 1 Impairment balance Short Term Goal (STG) Pt will be able to do SLS B 5 sec STG Duration 08/29/22 [facility] Goal (LTG) Pt will perform WNLs on FGA to decrease fall risk and improve balance by 08/31/21. 07/03/21: FGA score is slightly improved with score 18/30 and pt reporting gait with head turns up and down and walking with eyes closed being the most symptomatic. Tandem gait is still not very possible. Turning at the end of the hallway required her to reach out to catch her balance. 08/30- 11/28- improved 02/20--today was a bad day and pt scored same, but typically would do better on mult of the task. 05/07- 07/16- LTG Duration 10/08/22 Assessment Summary Assessment Pt has not been seen in over 2 months d/t insurance issues then once they were resolved, bad weather and then pt got COVID. She is resuming PT at this time w/worse balance and ETIENNE since getting COVID and dec activity tolerance and more fatigue. She would benefit from skilled PT to address her balance, neck/ETIENNE pain, core stability, and LE strength. Physical Therapy Plan Frequency and Duration Frequency of Treatment 1-2x/wk Duration of treatment (weeks) 12 Plan of Care Start Date 07/16/22 Plan of Care End Date 10/08/22 Therapeutic Interventions Therapeutic Interventions Balance Training,Canalithic Repositioning,Coordination Training,Gait Training,Home Exercise Program,Joint Mobilizations,Manual Therapy, Neuromuscular Re-education, Patient/Caregiver Education, Self-Care/Home Management, Sensory Integration,Soft Tissue Mobilization,Taping, Therapeutic Activities, Therapeutic Exercises, Vestibular Rehabilitation Modalities Cold Pack/Ice Massage,Electric Stimulation,Hot Packs, Ultrasound Next Visit Focus/Plan Next Note Type Treatment Note Next Visit Plan cont to work on ability to flex and ext neck w/o symptoms & improve postural stability & core stability;L hip abd strength, work on balance for turning head and body w/o LOB
--- NOTE | 2022-07-16 17:53 | PT.OPPOC ---
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) Headache, unspecified (07/16/22) Weakness (07/16/22) Visit Care Team Role Provider Type Christen Figueroa PA-C Attending Provider Non-Staff Primary Care Provider Referring Provider Specialty: Family Practice Address: [address] [place] [address], [address], [place], [address] Email: Plan Of Care PT-OP-T Assessment and Plan Start: 08/22/20 07:37 Freq: Status: Active Protocol: Document 07/16/22 17:17 [facility] (Rec: 07/16/22 17:17 [facility] [id number]) Physical Therapy Assessment Goals 5 Machine Rough Rounder Goal (LTG) Pt will gait train at least 1650 feet in 6 minutes without AD and no LOB or dragging finger on the wall for steadying assist by 08/31/21. 07/03/21: Pt gait trains 1654 feet in 6 minutes with occ left index finger dragging along wall to assist with balance with anti-clockwise gait. 06/02/21: Pt gait trains 1541 feet in 6 minutes, walking anti-clockwise. Twice, she rubs left hand on corner when turning to the left in the hallway. She has increased arms out and right arm swing and left LE does not move as well motor-viera compared to the right and requires effort to clear foot each time. Pt is wearing short wellingtons and this may cause exaggeration of lifting foot, requiring more effort which shows as such on the left. 03/29/21: Pt gait trains 1531 feet in 6 minutes, which is 3 feet further than when last tested in October 202008/30-1431ft 11/28-1481ft 02/20/22-1523ft touched wall 1x & mild instability throughout 05/07-1530ft w/less notable instability- only 2x slight uneven movement of trunk 07/16-occ touching of wall 1522ft LTG Duration 10/08/22 4 Long-Term Goal (LTG) Pt will be able to do all ROM of neck WNL w/o inc pain or feeling of nausea or dizziness LTG Duration 10/08/22 3 Short Term Goal (STG) Pt will perform progressive HEP with I including postural, flexibility, balance, LE strengthening, breathing, and VOR exercises to decrease symptoms and improve balance by 08/31/21. 07/03/21: Pt is performing band exercises for legs, back relay man self-massage, breathing, walking the dog, pelvic realignment exercises and balance exercises in the hallway. She is doing exercises 1-2x/wk. 32-pt walking and doing exercises at home plan to update and progress program 11/28-advancing based on cont deficits STG Duration achieved and progressing as able Machine Rough Rounder Goal (LTG) Pt will have at least 4+/5 all LE MMT 02/20-abd, IR still limited but overall much improved 05/17-slowly improved 07/16-no major change LTG Duration 10/08/22 2 Long-Term Goal (LTG) Pt will report a 70% improvement in dizziness and headache symptoms to allow return to PLOF by 08/31/21. 07/03/21: Pt reports flare-up of symptoms since the snow. 03/29/21: Pt reports that in the recent weeks, her dizziness has gotten worse. It gets worse when she does not have PT for a long time and when she is playin with her down. Squatting too fast and sudden head movements are provocative. 3-pt reports no big change but does feel better fro the rest of the day after last session 11/28-dizziness has improved about 50%; ETIENNE about 75% improvement since start of PT 02/20-a lot of inc dizziness since tilt test 05/07-back to how it was prior to tilt test. ETIENNE worse in cold 07/16-adjust goal to Pt will report ETIENNE no greater than 4/10 LTG Duration 10/08/22 1 Impairment balance Short Term Goal (STG) Pt will be able to do SLS B 5 sec STG Duration 08/29/22 Long-Term Goal (LTG) Pt will perform WNLs on FGA to decrease fall risk and improve balance by 08/31/21. 07/03/21: FGA score is slightly improved with score 18/30 and pt reporting gait with head turns up and down and walking with eyes closed being the most symptomatic. Tandem gait is still not very possible. Turning at the end of the hallway required her to reach out to catch her balance. 08/30- 11/28- improved 02/20--today was a bad day and pt scored same, but typically would do better on mult of the task. 05/07- 07/16- LTG Duration 10/08/22 Assessment Summary Assessment Pt has not been seen in over 2 months d/t insurance issues then once they were resolved, bad weather and then pt got COVID. She is resuming PT at this time w/worse balance and ETIENNE since getting COVID and dec activity tolerance and more fatigue. She would benefit from skilled PT to address her balance, neck/ETIENNE pain, core stability, and LE strength. Physical Therapy Plan Frequency and Duration Frequency of Treatment 1-2x/wk Duration of treatment (weeks) 12 Plan of Care Start Date 07/16/22 Plan of Care End Date 10/08/22 Therapeutic Interventions Therapeutic Interventions Balance Training,Canalithic Repositioning,Coordination Training,Gait Training,Home Exercise Program,Joint Mobilizations,Manual Therapy, Neuromuscular Re-education, Patient/Caregiver Education, Self-Care/Home Management, Sensory Integration,Soft Tissue Mobilization,Taping, Therapeutic Activities, Therapeutic Exercises, Vestibular Rehabilitation Modalities Cold Pack/Ice Massage,Electric Stimulation,Hot Packs, Ultrasound Next Visit Focus/Plan Next Note Type Treatment Note Next Visit Plan cont to work on ability to flex and ext neck w/o symptoms & improve postural stability & core stability;L hip abd strength, work on balance for turning head and body w/o LOB Plan of Care Dates Plan of Care Start Date 07/16/22 Plan of Care End Date 10/08/22 Electronically Signed by: Tanya Dhaliwal, PT 07/16/22 1857 If you are in agreement with this Plan of Care, please return a signed and dated copy. I have reviewed this Plan of Care and certify that the skilled therapy services above are required to meet the patient?s needs. Physician Signature Date Printed Name and Credentials Clinical Instructor Signature Printed Name and Credentials
--- NOTE | 2022-07-18 13:18 | PT.OTN ---
Current Diagnoses Moyamoya disease (07/18/22) Headache, unspecified (07/18/22) Weakness (07/18/22) Physical Therapy Treatment Note PT-OP-A Visit Information Start: 08/22/20 07:37 Freq: Status: Active Protocol: Document 07/18/22 13:13 [facility] (Rec: 07/18/22 13:18 [facility] [id number]) Out-Patient Physical Therapy Visit Information Visit Information Visit Type Treatment Note Visit Start Time 11:20 Visit Stop Time 12:01 Total Visit Minutes 41 Visit Number 08/24 2022 Number of ROLLER LEVELER OPERATOR Visits 0 PT-OP-B Current Condition Start: 08/22/20 07:37 Freq: Status: Active Protocol: Document 08/23/20 12:13 [facility] (Rec: 08/23/20 13:04 MB [id number]) Current Condition History of Current Condition Onset Date Surgery 07/27/20 Current Complaints Dizziness, light-headedness, ETIENNE and left leg pain and imbalance History of Current Condition 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 Pt had fall and concussion then as passed out. In PMH, pt writes back pain, superficial blood clot right LE, ulcers. Current complaints include: dizziness when active (walking and movements of neck), decreased processing words, headaches managed by medications, trouble opening right side of jaw post-op, neck pain and stiffness. Pt denies falls since surgery. Pt is wearing an ice hat. Pt reports pain right side of head, left jaw and left thigh. ETIENNE pain gets up to 5/10 with medication. Her neck pain is 4 /10. Left leg pain gets up to 7/10. She reports left leg pain as deep and shooting. Pt reports pain with walking on left leg. Pt reports that her left leg feels weak. The Cymbalta helps with nerve pain . Pt reports that her right eye brown does not yet move after surgery and the right side of her head is swollen. Mother states that pt still does not have any appetite. Treatment Goals Patient/Caregiver Goals Decrease pain, increase balance and leg strength. PT-OP-C Subjective Start: 08/22/20 07:37 Freq: Status: Active Protocol: Document 07/18/22 13:13 [facility] (Rec: 07/18/22 13:18 [facility] [id number]) OP-PT Subjective Patient Comments Patient Comments Pt reports she feels like she looses her blaance more when dog steps in front of her. PT-OP-D Balance Start: 08/22/20 07:37 Freq: Status: Active Protocol: Document 07/16/22 17:17 [facility] (Rec: 07/16/22 17:17 [facility] [id number]) Balance Tests Single Limb Standing Single Limb- Right 2 sec Single Limb- Left 2 sec PT-OP-E Functional Tests Start: 08/30/21 14:38 Freq: Status: Active Protocol: Document 07/16/22 17:17 [facility] (Rec: 07/16/22 17:17 [facility] [id number]) Functional Tests 6 Minute Walk Test Distance 1522ft Device Used none 30 Second Sit to Stand Test Score 10 Dynamic Gait Index (DGI) Score 17 Five Times Sit to Stand Test Score 15 sec Functional Gait Assessment Score 17 PT-OP-G Mobility & Gait Start: 08/22/20 07:37 Freq: Status: Active Protocol: Document 08/23/20 12:13 [facility] (Rec: 08/23/20 14:14 [facility] [id number]) OP Gait Assessment Gait Gait Assistance Required: Independent Distance (Feet) 50 Able to Maintain Weight Bearing Status Yes During Gait Assistive Devices Assistive Device None Orthotic/Prosthetic Devices or Brace: No Gait Deviations General Gait Pattern Decreased Stride Length Factors Limiting Gait Function Factors Limiting Gait Function Decreased Strength,Pain,Poor Balance Comments Gait Comments Pt favors the left leg, looks down at the floor, presents with hesitancy with gait PT-OP-H Neuro Start: 08/22/20 07:37 Freq: Status: Active Protocol: Document 08/23/20 12:13 [facility] (Rec: 08/23/20 14:14 [facility] [id number]) Sensation Evaluation Comments Summary Comments Pt reports numbness right temporal area and eye brow Coordination Evaluation Upper Extremity Tests Right Finger to Nose Test Normal Performance Pronation/Supination Test Normal Performance Left Finger to Nose Test Normal Performance Pronation/Supination Test Minimal Impairment Comments Coordination Comments Right toe tapping over opposite foot normal x5 reps, rapid and accurate. Slow with left toe tapping over right foot and inaccurate, given for exercise for home: 10 reps every hour when sitting Vital Signs Pulse 1 Pulse at Rest (bpm) 77 Pulse Assessment Method Cuff Blood Pressure Sitting Blood Pressure (90/60-120/80 mmHg) 132/90 H Blood Pressure Source Automatic Cuff,Right Upper Extremity Comments Vital Signs Comments Doctor note for BP written under precautions, pt is in recommended range today PT-OP-J Posture/Palpation/Skin Start: 08/22/20 07:37 Freq: Status: Active Protocol: Document 07/16/22 17:17 [facility] (Rec: 07/16/22 17:17 [facility] [id number]) Posture Evaluation [facility] Postural Classification System Vertebral Compression Test 3 Lumbar Protective Mechanism Left AP 1 Lumbar Protective Mechanism Right AP 2 Lumbar Protective Mechanism Left PA 2 Lumbar Protective Mechanism Right PA 1 PT-OP-K Range of Motion Start: 08/22/20 07:37 Freq: Status: Active Protocol: Document 07/16/22 17:17 [facility] (Rec: 07/16/22 17:20 [facility] [id number]) Cervical Spine Range of Motion Cervical Spine Active Degrees Flexion 56 Extension 48 Rotation Left 62 Rotation Right 71 Lateral Flexion Left 45 Lateral Flexion Right 50 Comments mild nausea w/flex, nausea & pain in neck (pinch), pinching R w/R SB; dizzy w/L rot PT-OP-M Strength Start: 08/22/20 07:37 Freq: Status: Active Protocol: Document 07/16/22 17:17 [facility] (Rec: 07/16/22 17:17 [facility] [id number]) Cervical Spine Strength Cervical Spine Manual Muscle Testing Flexion (C1-2) 3+ Fair+ Extension 3+ Fair+ Rotation Left 4 Good Rotation Right 4 Good Lateral Flexion Left (C3) 4 Good Lateral Flexion Right (C3) 4 Good Hip Strength Hip Manual Muscle Testing Left Flexion (L2) 4 Good Extension (S1) 4 Good Abduction 4- Good- Adduction 5 Normal External Rotation 5 Normal Internal Rotation 4 Good Right Flexion (L2) 4 Good Extension (S1) 4 Good Abduction 4+ Good+ Adduction 5 Normal External Rotation 5 Normal Internal Rotation 4+ Good+ Knee Strength Knee Manual Muscle Testing Left Flexion (S2) 5 Normal Extension (L3) 5 Normal Comments Pt sitting Right Flexion (S2) 5 Normal Extension (L3) 5 Normal Comments Pt sitting Ankle/Foot Strength Ankle and Foot Manual Muscle Testing Left Dorsiflexion (L4) 5 Normal Plantarflexion (S1) 5 Normal Comments 20 heel raises Right Dorsiflexion (L4) 5 Normal Plantarflexion (S1) 5 Normal Comments 20 heel raises PT-OP-O Vestibular Start: 08/22/20 07:37 Freq: Status: Active Protocol: Document 08/23/20 12:13 [facility] (Rec: 08/23/20 14:14 [facility] [id number]) Vestibular Assessment Visual Testing Smooth Pursuits Horizontal Normal Smooth Pursuits Vertical Normal Gaze Evoked Nystagmus With Fixation Negative Convergence Test R impaired Spontaneous Nystagmus Negative Comments Vestibular Comments Left pupil with decreased reactivity to pen light but very minimal PT-OP-Q Treatments Start: 08/22/20 07:37 Freq: Status: Active Protocol: Document 07/18/22 13:13 [facility] (Rec: 07/18/22 13:18 [facility] [id number]) Manual Therapy Treatment Soft Tissue Mobilization cervical Body Location B SO, cervical paraspinals, UT, LS Mobilization Type Rolling,Strumming,Sustained Pressure Intensity/Depth Moderate Comments w/LTR cranial fascia Body Location R>L Mobilization Type Myofascial Release Intensity/Depth Superficial Body Position Hooklying Comments and into R forehead w/LTR Joint Mobilizations cervical Comments C1 transverse L FM Neuro Re-Education Treatment Balance Activities firm ground Equipment rail PRN Comments WBOS w/head turns & EC trials NBOS SLS Comments alt august w/cues for posutre and occ finger on rail x20 B PT-OP-T Assessment and Plan Start: 08/22/20 07:37 Freq: Status: Active Protocol: Document 07/18/22 13:13 [facility] (Rec: 07/18/22 13:18 [facility] [id number]) Physical Therapy Assessment Goals 5 Mcc Goal (LTG) Pt will gait train at least 1650 feet in 6 minutes without AD and no LOB or dragging finger on the wall for steadying assist by 08/31/21. 07/03/21: Pt gait trains 1654 feet in 6 minutes with occ left index finger dragging along wall to assist with balance with anti-clockwise gait. 06/02/21: Pt gait trains 1541 feet in 6 minutes, walking anti-clockwise. Twice, she rubs left hand on corner when turning to the left in the hallway. She has increased arms out and right arm swing and left LE does not move as well motor-viera compared to the right and requires effort to clear foot each time. Pt is wearing short wellingtons and this may cause exaggeration of lifting foot, requiring more effort which shows as such on the left. 03/29/21: Pt gait trains 1531 feet in 6 minutes, which is 3 feet further than when last tested in October 202008/30-1431ft 11/28-1481ft 02/20/22-1523ft touched wall 1x & mild instability throughout 05/07-1530ft w/less notable instability- only 2x slight uneven movement of trunk 07/16-occ touching of wall 1522ft LTG Duration 10/08/22 4 Mcc Goal (LTG) Pt will be able to do all ROM of neck WNL w/o inc pain or feeling of nausea or dizziness LTG Duration 10/08/22 3 Short Term Goal (STG) Pt will perform progressive HEP with I including postural, flexibility, balance, LE strengthening, breathing, and VOR exercises to decrease symptoms and improve balance by 08/31/21. 07/03/21: Pt is performing band exercises for legs, back bi consultant self-massage, breathing, walking the dog, pelvic realignment exercises and balance exercises in the hallway. She is doing exercises 1-2x/wk. 08/30-pt walking and doing exercises at home plan to update and progress program 11/28-advancing based on cont deficits STG Duration achieved and progressing as able Mcc Goal (LTG) Pt will have at least 4+/5 all LE MMT 02/20-abd, IR still limited but overall much improved 05/17-slowly improved 07/16-no major change LTG Duration 10/08/22 2 Mcc Goal (LTG) Pt will report a 70% improvement in dizziness and headache symptoms to allow return to PLOF by 08/31/21. 07/03/21: Pt reports flare-up of symptoms since the . 03/29/21: Pt reports that in the recent weeks, her dizziness has gotten worse. It gets worse when she does not have PT for a long time and when she is playin with her down. Squatting too fast and sudden head movements are provocative. 3-pt reports no big change but does feel better fro the rest of the day after last session 11/28-dizziness has improved about 50%; ETIENNE about 75% improvement since start of PT 02/20-a lot of inc dizziness since tilt test 05/07-back to how it was prior to tilt test. ETIENNE worse in cold 07/16-adjust goal to Pt will report ETIENNE no greater than 10/08 LTG Duration 10/08/22 1 Impairment balance Short Term Goal (STG) Pt will be able to do SLS B 5 sec STG Duration 08/29/22 Computer Security Manager Goal (LTG) Pt will perform WNLs on FGA to decrease fall risk and improve balance by 08/31/21. 07/03/21: FGA score is slightly improved with score /30 and pt reporting gait with head turns up and down and walking with eyes closed being the most symptomatic. Tandem gait is still not very possible. Turning at the end of the hallway required her to reach out to catch her balance. 08/30- 11/28- improved 02/20--today was a bad day and pt scored same, but typically would do better on mult of the task. 05/07- 07/16- LTG Duration 10/08/22 Assessment Summary Assessment Pt had dec turtle neck test after manual treatment and improved neck ROM. Has mild lightheadedness when sat up but resolved w/waiting to stand and water drinking Physical Therapy Plan Frequency and Duration Frequency of Treatment 1-2x/wk Duration of treatment (weeks) 12 Plan of Care Start Date 07/16/22 Plan of Care End Date 10/08/22 Next Visit Focus/Plan Next Note Type Treatment Note Next Visit Plan cont to work on ability to flex and ext neck w/o symptoms & improve postural stability & core stability;L hip abd strength, work on balance for turning head and body w/o LOB
--- NOTE | 2022-07-23 12:10 | PT.OTN ---
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) Headache, unspecified (07/23/22) Weakness (07/23/22) Physical Therapy Treatment Note PT-OP-A Visit Information Start: 08/22/20 07:37 Freq: Status: Active Protocol: Document 07/23/22 11:19 [facility] (Rec: 07/23/22 12:10 [facility] [id number]) Out-Patient Physical Therapy Visit Information Visit Information Visit Type Treatment Note Visit Start Time 11:20 Visit Stop Time 12:01 Total Visit Minutes 41 Visit Number 09/21 2022 Number of DOOR TO DOOR SALESPERSON Visits 0 PT-OP-B Current Condition Start: 08/22/20 07:37 Freq: Status: Active Protocol: Document 08/23/20 12:13 [facility] (Rec: 08/23/20 13:04 [facility] [id number]) Current Condition History of Current Condition Onset Date Surgery 07/27/20 Current Complaints Dizziness, light-headedness, ETIENNE and left leg pain and imbalance History of Current Condition 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 Pt had fall and concussion then as passed out. In PMH, pt writes back pain, superficial blood clot right LE, ulcers. Current complaints include: dizziness when active (walking and movements of neck), decreased processing words, headaches managed by medications, trouble opening right side of jaw post-op, neck pain and stiffness. Pt denies falls since surgery. Pt is wearing an ice hat. Pt reports pain right side of head, left jaw and left thigh. ETIENNE pain gets up to 5/10 with medication. Her neck pain is 4 /10. Left leg pain gets up to 7/10. She reports left leg pain as deep and shooting. Pt reports pain with walking on left leg. Pt reports that her left leg feels weak. The Cymbalta helps with nerve pain . Pt reports that her right eye brown does not yet move after surgery and the right side of her head is swollen. Mother states that pt still does not have any appetite. Treatment Goals Patient/Caregiver Goals Decrease pain, increase balance and leg strength. PT-OP-C Subjective Start: 08/22/20 07:37 Freq: Status: Active Protocol: Document 07/23/22 11:19 [facility] (Rec: 07/23/22 12:10 [facility] [id number]) OP-PT Subjective Patient Comments Patient Comments Pt reports she had to try to catch a dog in her yard the other day. PT-OP-D Balance Start: 08/22/20 07:37 Freq: Status: Active Protocol: Document 07/16/22 17:17 [facility] (Rec: 07/16/22 17:17 [facility] [id number]) Balance Tests Single Limb Standing Single Limb- Right 2 sec Single Limb- Left 2 sec PT-OP-E Functional Tests Start: 08/30/21 14:38 Freq: Status: Active Protocol: Document 07/16/22 17:17 [facility] (Rec: 07/16/22 17:17 [facility] [id number]) Functional Tests 6 Minute Walk Test Distance 1522ft Device Used none 30 Second Sit to Stand Test Score 10 Dynamic Gait Index (DGI) Score 17 Five Times Sit to Stand Test Score 15 sec Functional Gait Assessment Score 17 PT-OP-G Mobility & Gait Start: 08/22/20 07:37 Freq: Status: Active Protocol: Document 08/23/20 12:13 [facility] (Rec: 08/23/20 14:14 MB [id number]) OP Gait Assessment Gait Gait Assistance Required: Independent Distance (Feet) 50 Able to Maintain Weight Bearing Status Yes During Gait Assistive Devices Assistive Device None Orthotic/Prosthetic Devices or Brace: No Gait Deviations General Gait Pattern Decreased Stride Length Factors Limiting Gait Function Factors Limiting Gait Function Decreased Strength,Pain,Poor Balance Comments Gait Comments Pt favors the left leg, looks down at the floor, presents with hesitancy with gait PT-OP-H Neuro Start: 08/22/20 07:37 Freq: Status: Active Protocol: Document 08/23/20 12:13 [facility] (Rec: 08/23/20 14:14 [facility] [id number]) Sensation Evaluation Comments Summary Comments Pt reports numbness right temporal area and eye brow Coordination Evaluation Upper Extremity Tests Right Finger to Nose Test Normal Performance Pronation/Supination Test Normal Performance Left Finger to Nose Test Normal Performance Pronation/Supination Test Minimal Impairment Comments Coordination Comments Right toe tapping over opposite foot normal x5 reps, rapid and accurate. Slow with left toe tapping over right foot and inaccurate, given for exercise for home: 10 reps every hour when sitting Vital Signs Pulse 1 Pulse at Rest (bpm) 77 Pulse Assessment Method Cuff Blood Pressure Sitting Blood Pressure (90/60-120/80 mmHg) 132/90 H Blood Pressure Source Automatic Cuff,Right Upper Extremity Comments Vital Signs Comments Doctor note for BP written under precautions, pt is in recommended range today PT-OP-J Posture/Palpation/Skin Start: 08/22/20 07:37 Freq: Status: Active Protocol: Document 07/16/22 17:17 [facility] (Rec: 07/16/22 17:17 [facility] [id number]) Posture Evaluation [facility] Postural Classification System Vertebral Compression Test 3 Lumbar Protective Mechanism Left AP 1 Lumbar Protective Mechanism Right AP 2 Lumbar Protective Mechanism Left PA 2 Lumbar Protective Mechanism Right PA 1 PT-OP-K Range of Motion Start: 08/22/20 07:37 Freq: Status: Active Protocol: Document 07/16/22 17:17 [facility] (Rec: 07/16/22 17:20 [facility] [id number]) Cervical Spine Range of Motion Cervical Spine Active Degrees Flexion 56 Extension 48 Rotation Left 62 Rotation Right 71 Lateral Flexion Left 45 Lateral Flexion Right 50 Comments mild nausea w/flex, nausea & pain in neck (pinch), pinching R w/R SB; dizzy w/L rot PT-OP-M Strength Start: 08/22/20 07:37 Freq: Status: Active Protocol: Document 07/16/22 17:17 [facility] (Rec: 07/16/22 17:17 [facility] [id number]) Cervical Spine Strength Cervical Spine Manual Muscle Testing Flexion (C1-2) 3+ Fair+ Extension 3+ Fair+ Rotation Left 4 Good Rotation Right 4 Good Lateral Flexion Left (C3) 4 Good Lateral Flexion Right (C3) 4 Good Hip Strength Hip Manual Muscle Testing Left Flexion (L2) 4 Good Extension (S1) 4 Good Abduction 4- Good- Adduction 5 Normal External Rotation 5 Normal Internal Rotation 4 Good Right Flexion (L2) 4 Good Extension (S1) 4 Good Abduction 4+ Good+ Adduction 5 Normal External Rotation 5 Normal Internal Rotation 4+ Good+ Knee Strength Knee Manual Muscle Testing Left Flexion (S2) 5 Normal Extension (L3) 5 Normal Comments Pt sitting Right Flexion (S2) 5 Normal Extension (L3) 5 Normal Comments Pt sitting Ankle/Foot Strength Ankle and Foot Manual Muscle Testing Left Dorsiflexion (L4) 5 Normal Plantarflexion (S1) 5 Normal Comments 20 heel raises Right Dorsiflexion (L4) 5 Normal Plantarflexion (S1) 5 Normal Comments 20 heel raises PT-OP-O Vestibular Start: 08/22/20 07:37 Freq: Status: Active Protocol: Document 08/23/20 12:13 [facility] (Rec: 08/23/20 14:14 [facility] [id number]) Vestibular Assessment Visual Testing Smooth Pursuits Horizontal Normal Smooth Pursuits Vertical Normal Gaze Evoked Nystagmus With Fixation Negative Convergence Test R impaired Spontaneous Nystagmus Negative Comments Vestibular Comments Left pupil with decreased reactivity to pen light but very minimal PT-OP-Q Treatments Start: 08/22/20 07:37 Freq: Status: Active Protocol: Document 07/23/22 11:19 [facility] (Rec: 07/23/22 12:10 [facility] [id number]) Gym Equipment Therapeutic Ball seated Ball Size/Color 65cm Comments 1. marches x15 B 2. seated paloff press x12 B 3. seated rotation x12 B Manual Therapy Treatment Soft Tissue Mobilization cervical Body Location B SO, cervical paraspinals, scalnes, SCM Mobilization Type Rolling,Strumming,Sustained Pressure Intensity/Depth Moderate Comments w/LTR cranial fascia Body Location R>L Mobilization Type Myofascial Release Intensity/Depth Superficial Body Position Hooklying Comments and into R forehead w/LTR Joint Mobilizations cervical Comments C3 and 4 transverse L FM Neuro Re-Education Treatment Balance Activities balance board Details fwd & side Comments balancing & wt shifts firm ground Equipment rail PRN Comments WBOS w/head turns & EC trials NBOS & staggered stance w/head turns PT-OP-T Assessment and Plan Start: 08/22/20 07:37 Freq: Status: Active Protocol: Document 07/23/22 11:19 [facility] (Rec: 07/23/22 12:10 [facility] [id number]) Physical Therapy Assessment Goals 5 General Utility Machine Operator Goal (LTG) Pt will gait train at least 1650 feet in 6 minutes without AD and no LOB or dragging finger on the wall for steadying assist by 08/31/21. 07/03/21: Pt gait trains 1654 feet in 6 minutes with occ left index finger dragging along wall to assist with balance with anti-clockwise gait. 06/02/21: Pt gait trains 1541 feet in 6 minutes, walking anti-clockwise. Twice, she rubs left hand on corner when turning to the left in the hallway. She has increased arms out and right arm swing and left LE does not move as well motor-viera compared to the right and requires effort to clear foot each time. Pt is wearing short wellingtons and this may cause exaggeration of lifting foot, requiring more effort which shows as such on the left. 03/29/21: Pt gait trains 1531 feet in 6 minutes, which is 3 feet further than when last tested in October 202008/30-1431ft 11/28-1481ft 02/20/22-1523ft touched wall 1x & mild instability throughout 05/07-1530ft w/less notable instability- only 2x slight uneven movement of trunk 07/16-occ touching of wall 1522ft LTG Duration 10/08/22 4 General Utility Machine Operator Goal (LTG) Pt will be able to do all ROM of neck WNL w/o inc pain or feeling of nausea or dizziness LTG Duration 10/08/22 3 Short Term Goal (STG) Pt will perform progressive HEP with I including postural, flexibility, balance, LE strengthening, breathing, and VOR exercises to decrease symptoms and improve balance by 08/31/21. 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 She is doing exercises 1-2x/wk. 08/30-pt walking and doing exercises at home plan to update and progress program 11/28-advancing based on cont deficits STG Duration achieved and progressing as able Fdc Goal (LTG) Pt will have at least 4+/5 all LE MMT 02/20-abd, IR still limited but overall much improved 05/17-slowly improved 07/16-no major change LTG Duration 10/08/22 2 General Utility Machine Operator Goal (LTG) Pt will report a 70% improvement in dizziness and headache symptoms to allow return to PLOF by 08/31/21. 07/03/21: Pt reports flare-up of symptoms since the snow. 03/29/21: Pt reports that in the recent weeks, her dizziness has gotten worse. It gets worse when she does not have PT for a long time and when she is playin with her down. Squatting too fast and sudden head movements are provocative. 3/2-pt reports no big change but does feel better fro the rest of the day after last session 11/28-dizziness has improved about 50%; ETIENNE about 75% improvement since start of PT 02/20-a lot of inc dizziness since tilt test 05/07-back to how it was prior to tilt test. ETIENNE worse in cold 07/16-adjust goal to Pt will report ETIENNE no greater than 4/10 LTG Duration 10/08/22 1 Impairment balance Short Term Goal (STG) Pt will be able to do SLS B 5 sec STG Duration 08/29/22 Fdc Goal (LTG) Pt will perform WNLs on FGA to decrease fall risk and improve balance by 08/31/21. 07/03/21: FGA score is slightly improved with score /30 and pt reporting gait with head turns up and down and walking with eyes closed being the most symptomatic. Tandem gait is still not very possible. Turning at the end of the hallway required her to reach out to catch her balance. 08/30- 11/28- improved 02/20--today was a bad day and pt scored same, but typically would do better on mult of the task. 05/07- 07/16- LTG Duration 10/08/22 Assessment Summary Assessment pt cont to have turtle neck test positive but at later LTR . Pt did well balance today but still requires cueing for wt acceptance into LE to help. Physical Therapy Plan Frequency and Duration Frequency of Treatment 1-2x/wk Duration of treatment (weeks) 12 Plan of Care Start Date 07/16/22 Plan of Care End Date 10/08/22 Next Visit Focus/Plan Next Note Type Treatment Note Next Visit Plan cont to work on ability to flex and ext neck w/o symptoms & improve postural stability & core stability;L hip abd strength, work on balance for turning head and body w/o LOB
--- NOTE | 2022-08-06 18:30 | PT.OTN ---
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) Headache, unspecified (08/06/22) Weakness (08/06/22) Physical Therapy Treatment Note PT-OP-A Visit Information Start: 08/22/20 07:37 Freq: Status: Active Protocol: Document 08/06/22 18:21 [facility] (Rec: 08/07/22 18:30 [facility] [id number]) Out-Patient Physical Therapy Visit Information Visit Information Visit Type Treatment Note Visit Start Time 11:25 Visit Stop Time 12:05 Total Visit Minutes 40 Visit Number 10/22 2022 Number of WATER POLLUTION SPECIALIST Visits 0 PT-OP-B Current Condition Start: 08/22/20 07:37 Freq: Status: Active Protocol: Document 08/23/20 12:13 [facility] (Rec: 08/23/20 13:04 MB [id number]) Current Condition History of Current Condition Onset Date Surgery 07/27/20 Current Complaints Dizziness, light-headedness, ETIENNE and left leg pain and imbalance History of Current Condition 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 Pt had fall and concussion then as passed out. In PMH, pt writes back pain, superficial blood clot right LE, ulcers. Current complaints include: dizziness when active (walking and movements of neck), decreased processing words, headaches managed by medications, trouble opening right side of jaw post-op, neck pain and stiffness. Pt denies falls since surgery. Pt is wearing an ice hat. Pt reports pain right side of head, left jaw and left thigh. ETIENNE pain gets up to 5/10 with medication. Her neck pain is 4 /10. Left leg pain gets up to 7/10. She reports left leg pain as deep and shooting. Pt reports pain with walking on left leg. Pt reports that her left leg feels weak. The Cymbalta helps with nerve pain . Pt reports that her right eye brown does not yet move after surgery and the right side of her head is swollen. Mother states that pt still does not have any appetite. Treatment Goals Patient/Caregiver Goals Decrease pain, increase balance and leg strength. PT-OP-C Subjective Start: 08/22/20 07:37 Freq: Status: Active Protocol: Document 08/06/22 18:21 [facility] (Rec: 08/07/22 18:30 [facility] [id number]) OP-PT Subjective Patient Comments Patient Comments Pt reports ETIENNE have been bad recently.S he naps heavily after PT but is overall doing okay after PT-OP-D Balance Start: 08/22/20 07:37 Freq: Status: Active Protocol: Document 07/16/22 17:17 [facility] (Rec: 07/16/22 17:17 [facility] [id number]) Balance Tests Single Limb Standing Single Limb- Right 2 sec Single Limb- Left 2 sec PT-OP-E Functional Tests Start: 08/30/21 14:38 Freq: Status: Active Protocol: Document 07/16/22 17:17 [facility] (Rec: 07/16/22 17:17 [facility] [id number]) Functional Tests 6 Minute Walk Test Distance 1522ft Device Used none 30 Second Sit to Stand Test Score 10 Dynamic Gait Index (DGI) Score 17 Five Times Sit to Stand Test Score 15 sec Functional Gait Assessment Score 17 PT-OP-G Mobility & Gait Start: 08/22/20 07:37 Freq: Status: Active Protocol: Document 08/23/20 12:13 [facility] (Rec: 08/23/20 14:14 MB [id number]) OP Gait Assessment Gait Gait Assistance Required: Independent Distance (Feet) 50 Able to Maintain Weight Bearing Status Yes During Gait Assistive Devices Assistive Device None Orthotic/Prosthetic Devices or Brace: No Gait Deviations General Gait Pattern Decreased Stride Length Factors Limiting Gait Function Factors Limiting Gait Function Decreased Strength,Pain,Poor Balance Comments Gait Comments Pt favors the left leg, looks down at the floor, presents with hesitancy with gait PT-OP-H Neuro Start: 08/22/20 07:37 Freq: Status: Active Protocol: Document 08/23/20 12:13 [facility] (Rec: 08/23/20 14:14 MB [id number]) Sensation Evaluation Comments Summary Comments Pt reports numbness right temporal area and eye brow Coordination Evaluation Upper Extremity Tests Right Finger to Nose Test Normal Performance Pronation/Supination Test Normal Performance Left Finger to Nose Test Normal Performance Pronation/Supination Test Minimal Impairment Comments Coordination Comments Right toe tapping over opposite foot normal x5 reps, rapid and accurate. Slow with left toe tapping over right foot and inaccurate, given for exercise for home: 10 reps every hour when sitting Vital Signs Pulse 1 Pulse at Rest (bpm) 77 Pulse Assessment Method Cuff Blood Pressure Sitting Blood Pressure (90/60-120/80 mmHg) 132/90 H Blood Pressure Source Automatic Cuff,Right Upper Extremity Comments Vital Signs Comments Doctor note for BP written under precautions, pt is in recommended range today PT-OP-J Posture/Palpation/Skin Start: 08/22/20 07:37 Freq: Status: Active Protocol: Document 07/16/22 17:17 [facility] (Rec: 07/16/22 17:17 [facility] [id number]) Posture Evaluation [facility] Postural Classification System Vertebral Compression Test 3 Lumbar Protective Mechanism Left AP 1 Lumbar Protective Mechanism Right AP 2 Lumbar Protective Mechanism Left PA 2 Lumbar Protective Mechanism Right PA 1 PT-OP-K Range of Motion Start: 08/22/20 07:37 Freq: Status: Active Protocol: Document 07/16/22 17:17 [facility] (Rec: 07/16/22 17:20 [facility] [id number]) Cervical Spine Range of Motion Cervical Spine Active Degrees Flexion 56 Extension 48 Rotation Left 62 Rotation Right 71 Lateral Flexion Left 45 Lateral Flexion Right 50 Comments mild nausea w/flex, nausea & pain in neck (pinch), pinching R w/R SB; dizzy w/L rot PT-OP-M Strength Start: 08/22/20 07:37 Freq: Status: Active Protocol: Document 07/16/22 17:17 [facility] (Rec: 07/16/22 17:17 [facility] [id number]) Cervical Spine Strength Cervical Spine Manual Muscle Testing Flexion (C1-2) 3+ Fair+ Extension 3+ Fair+ Rotation Left 4 Good Rotation Right 4 Good Lateral Flexion Left (C3) 4 Good Lateral Flexion Right (C3) 4 Good Hip Strength Hip Manual Muscle Testing Left Flexion (L2) 4 Good Extension (S1) 4 Good Abduction 4- Good- Adduction 5 Normal External Rotation 5 Normal Internal Rotation 4 Good Right Flexion (L2) 4 Good Extension (S1) 4 Good Abduction 4+ Good+ Adduction 5 Normal External Rotation 5 Normal Internal Rotation 4+ Good+ Knee Strength Knee Manual Muscle Testing Left Flexion (S2) 5 Normal Extension (L3) 5 Normal Comments Pt sitting Right Flexion (S2) 5 Normal Extension (L3) 5 Normal Comments Pt sitting Ankle/Foot Strength Ankle and Foot Manual Muscle Testing Left Dorsiflexion (L4) 5 Normal Plantarflexion (S1) 5 Normal Comments 20 heel raises Right Dorsiflexion (L4) 5 Normal Plantarflexion (S1) 5 Normal Comments 20 heel raises PT-OP-O Vestibular Start: 08/22/20 07:37 Freq: Status: Active Protocol: Document 08/23/20 12:13 [facility] (Rec: 08/23/20 14:14 [facility] [id number]) Vestibular Assessment Visual Testing Smooth Pursuits Horizontal Normal Smooth Pursuits Vertical Normal Gaze Evoked Nystagmus With Fixation Negative Convergence Test R impaired Spontaneous Nystagmus Negative Comments Vestibular Comments Left pupil with decreased reactivity to pen light but very minimal PT-OP-Q Treatments Start: 08/22/20 07:37 Freq: Status: Active Protocol: Document 08/06/22 18:21 [facility] (Rec: 08/07/22 18:30 [facility] [id number]) Gym Equipment Therapeutic Ball seated Ball Size/Color 65cm Comments 1. marches x15 B 2. kicks x15 B 3. pelvic circles x12 B Manual Therapy Treatment Soft Tissue Mobilization cervical Body Location B SO, cervical paraspinals, scalnes, SCM Mobilization Type Rolling,Strumming,Sustained Pressure Intensity/Depth Moderate Comments w/LTR Joint Mobilizations sternum Direction AP FM cervical Comments L down glide C3 & 4, transverse R FM C4 &5 FM Neuro Re-Education Treatment Balance Activities balance board Details fwd & side Comments balancing & wt shifts firm ground Comments NBOS & staggered stance w/head turns B foam Surface blue foam Comments 1. staggered stance balance B trials 2. NBOS trials 3.WBOS w/head turns PT-OP-T Assessment and Plan Start: 08/22/20 07:37 Freq: Status: Active Protocol: Document 08/06/22 18:21 [facility] (Rec: 08/07/22 18:30 [facility] [id number]) Physical Therapy Assessment Goals 5 Snf Goal (LTG) Pt will gait train at least 1650 feet in 6 minutes without AD and no LOB or dragging finger on the wall for steadying assist by 08/31/21. 07/03/21: Pt gait trains 1654 feet in 6 minutes with occ left index finger dragging along wall to assist with balance with anti-clockwise gait. 06/02/21: Pt gait trains 1541 feet in 6 minutes, walking anti-clockwise. Twice, she rubs left hand on corner when turning to the left in the hallway. She has increased arms out and right arm swing and left LE does not move as well motor-viera compared to the right and requires effort to clear foot each time. Pt is wearing short wellingtons and this may cause exaggeration of lifting foot, requiring more effort which shows as such on the left. 03/29/21: Pt gait trains 1531 feet in 6 minutes, which is 3 feet further than when last tested in October 202008/30-1431ft 11/28-1481ft 02/20/22-1523ft touched wall 1x & mild instability throughout 05/07-1530ft w/less notable instability- only 2x slight uneven movement of trunk 07/16-occ touching of wall 1522ft LTG Duration 10/08/22 4 Snf Goal (LTG) Pt will be able to do all ROM of neck WNL w/o inc pain or feeling of nausea or dizziness LTG Duration 10/08/22 3 Short Term Goal (STG) Pt will perform progressive HEP with I including postural, flexibility, balance, LE strengthening, breathing, and VOR exercises to decrease symptoms and improve balance by 08/31/21. 07/03/21: Pt is performing band exercises for legs, back incident response analyst self-massage, breathing, walking the dog, pelvic realignment exercises and balance exercises in the hallway. She is doing exercises 1-2x/wk. 08/30-pt walking and doing exercises at home plan to update and progress program 11/28-advancing based on cont deficits STG Duration achieved and progressing as able Snf Goal (LTG) Pt will have at least 4+/5 all LE MMT 02/20-abd, IR still limited but overall much improved 05/17-slowly improved 07/16-no major change LTG Duration 10/08/22 2 Snf Goal (LTG) Pt will report a 70% improvement in dizziness and headache symptoms to allow return to PLOF by 08/31/21. 07/03/21: Pt reports flare-up of symptoms since the snow. 03/29/21: Pt reports that in the recent weeks, her dizziness has gotten worse. It gets worse when she does not have PT for a long time and when she is playin with her down. Squatting too fast and sudden head movements are provocative. 3/2-pt reports no big change but does feel better fro the rest of the day after last session 11/28-dizziness has improved about 50%; ETIENNE about 75% improvement since start of PT 02/20-a lot of inc dizziness since tilt test 05/07-back to how it was prior to tilt test. ETIENNE worse in cold 07/16-adjust goal to Pt will report ETIENNE no greater than 4/10 LTG Duration 10/08/22 1 Impairment balance Short Term Goal (STG) Pt will be able to do SLS B 5 sec STG Duration 08/29/22 Auto Garage Mechanic Goal (LTG) Pt will perform WNLs on FGA to decrease fall risk and improve balance by 08/31/21. 07/03/21: FGA score is slightly improved with score /30 and pt reporting gait with head turns up and down and walking with eyes closed being the most symptomatic. Tandem gait is still not very possible. Turning at the end of the hallway required her to reach out to catch her balance. 08/30- 11/28- improved 02/20--today was a bad day and pt scored same, but typically would do better on mult of the task. 05/07- 07/16- LTG Duration 10/08/22 Assessment Summary Assessment Pt had symptoms with flex, L SB & L rotation and ext prior to manual w/PROM which improved to no symptoms with any w/PROm except ext. She is improving w/balance. Physical Therapy Plan Frequency and Duration Frequency of Treatment 1-2x/wk Duration of treatment (weeks) 12 Plan of Care Start Date 07/16/22 Plan of Care End Date 10/08/22 Next Visit Focus/Plan Next Note Type Treatment Note Next Visit Plan cont to work on ability to flex and ext neck w/o symptoms & improve postural stability & core stability;L hip abd strength, work on balance for turning head and body w/o LOB
--- NOTE | 2022-08-22 12:17 | PT.OTN ---
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) Headache, unspecified (08/22/22) Weakness (08/22/22) Physical Therapy Treatment Note PT-OP-A Visit Information Start: 08/22/20 07:37 Freq: Status: Active Protocol: Document 08/22/22 11:21 [facility] (Rec: 08/22/22 12:15 [facility] [id number]) Out-Patient Physical Therapy Visit Information Visit Information Visit Type Treatment Note Visit Start Time 11:21 Visit Stop Time 12:01 Total Visit Minutes 40 Visit Number 11/21 2022 Number of ABSORBER OPERATOR Visits 0 PT-OP-B Current Condition Start: 08/22/20 07:37 Freq: Status: Active Protocol: Document 08/23/20 12:13 MB (Rec: 08/23/20 13:04 MB [id number]) Current Condition History of Current Condition Onset Date Surgery 07/27/20 Current Complaints Dizziness, light-headedness, ETIENNE and left leg pain and imbalance History of Current Condition 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 Pt had fall and concussion then as passed out. In PMH, pt writes back pain, superficial blood clot right LE, ulcers. Current complaints include: dizziness when active (walking and movements of neck), decreased processing words, headaches managed by medications, trouble opening right side of jaw post-op, neck pain and stiffness. Pt denies falls since surgery. Pt is wearing an ice hat. Pt reports pain right side of head, left jaw and left thigh. ETIENNE pain gets up to 5/10 with medication. Her neck pain is 4 /10. Left leg pain gets up to 7/10. She reports left leg pain as deep and shooting. Pt reports pain with walking on left leg. Pt reports that her left leg feels weak. The Cymbalta helps with nerve pain . Pt reports that her right eye brown does not yet move after surgery and the right side of her head is swollen. Mother states that pt still does not have any appetite. Treatment Goals Patient/Caregiver Goals Decrease pain, increase balance and leg strength. PT-OP-C Subjective Start: 08/22/20 07:37 Freq: Status: Active Protocol: Document 08/22/22 11:21 [facility] (Rec: 08/22/22 12:15 [facility] [id number]) OP-PT Subjective Patient Comments Patient Comments Pt reports she is frustrated that standing time fatigues her almost as much as a walk still. Still noting dizziness PT-OP-D Balance Start: 08/22/20 07:37 Freq: Status: Active Protocol: Document 07/16/22 17:17 [facility] (Rec: 07/16/22 17:17 [facility] [id number]) Balance Tests Single Limb Standing Single Limb- Right 2 sec Single Limb- Left 2 sec PT-OP-E Functional Tests Start: 08/30/21 14:38 Freq: Status: Active Protocol: Document 07/16/22 17:17 [facility] (Rec: 07/16/22 17:17 [facility] [id number]) Functional Tests 6 Minute Walk Test Distance 1522ft Device Used none 30 Second Sit to Stand Test Score 10 Dynamic Gait Index (DGI) Score 17 Five Times Sit to Stand Test Score 15 sec Functional Gait Assessment Score 17 PT-OP-G Mobility & Gait Start: 08/22/20 07:37 Freq: Status: Active Protocol: Document 08/23/20 12:13 MB (Rec: 08/23/20 14:14 MB [id number]) OP Gait Assessment Gait Gait Assistance Required: Independent Distance (Feet) 50 Able to Maintain Weight Bearing Status Yes During Gait Assistive Devices Assistive Device None Orthotic/Prosthetic Devices or Brace: No Gait Deviations General Gait Pattern Decreased Stride Length Factors Limiting Gait Function Factors Limiting Gait Function Decreased Strength,Pain,Poor Balance Comments Gait Comments Pt favors the left leg, looks down at the floor, presents with hesitancy with gait PT-OP-H Neuro Start: 08/22/20 07:37 Freq: Status: Active Protocol: Document 08/23/20 12:13 MB (Rec: 08/23/20 14:14 MB [id number]) Sensation Evaluation Comments Summary Comments Pt reports numbness right temporal area and eye brow Coordination Evaluation Upper Extremity Tests Right Finger to Nose Test Normal Performance Pronation/Supination Test Normal Performance Left Finger to Nose Test Normal Performance Pronation/Supination Test Minimal Impairment Comments Coordination Comments Right toe tapping over opposite foot normal x5 reps, rapid and accurate. Slow with left toe tapping over right foot and inaccurate, given for exercise for home: 10 reps every hour when sitting Vital Signs Pulse 1 Pulse at Rest (bpm) 77 Pulse Assessment Method Cuff Blood Pressure Sitting Blood Pressure (90/60-120/80 mmHg) 132/90 H Blood Pressure Source Automatic Cuff,Right Upper Extremity Comments Vital Signs Comments Doctor note for BP written under precautions, pt is in recommended range today PT-OP-J Posture/Palpation/Skin Start: 08/22/20 07:37 Freq: Status: Active Protocol: Document 07/16/22 17:17 [facility] (Rec: 07/16/22 17:17 [facility] [id number]) Posture Evaluation [facility] Postural Classification System Vertebral Compression Test 3 Lumbar Protective Mechanism Left AP 1 Lumbar Protective Mechanism Right AP 2 Lumbar Protective Mechanism Left PA 2 Lumbar Protective Mechanism Right PA 1 PT-OP-K Range of Motion Start: 08/22/20 07:37 Freq: Status: Active Protocol: Document 07/16/22 17:17 [facility] (Rec: 07/16/22 17:20 [facility] [id number]) Cervical Spine Range of Motion Cervical Spine Active Degrees Flexion 56 Extension 48 Rotation Left 62 Rotation Right 71 Lateral Flexion Left 45 Lateral Flexion Right 50 Comments mild nausea w/flex, nausea & pain in neck (pinch), pinching R w/R SB; dizzy w/L rot PT-OP-M Strength Start: 08/22/20 07:37 Freq: Status: Active Protocol: Document 07/16/22 17:17 [facility] (Rec: 07/16/22 17:17 [facility] [id number]) Cervical Spine Strength Cervical Spine Manual Muscle Testing Flexion (C1-2) 3+ Fair+ Extension 3+ Fair+ Rotation Left 4 Good Rotation Right 4 Good Lateral Flexion Left (C3) 4 Good Lateral Flexion Right (C3) 4 Good Hip Strength Hip Manual Muscle Testing Left Flexion (L2) 4 Good Extension (S1) 4 Good Abduction 4- Good- Adduction 5 Normal External Rotation 5 Normal Internal Rotation 4 Good Right Flexion (L2) 4 Good Extension (S1) 4 Good Abduction 4+ Good+ Adduction 5 Normal External Rotation 5 Normal Internal Rotation 4+ Good+ Knee Strength Knee Manual Muscle Testing Left Flexion (S2) 5 Normal Extension (L3) 5 Normal Comments Pt sitting Right Flexion (S2) 5 Normal Extension (L3) 5 Normal Comments Pt sitting Ankle/Foot Strength Ankle and Foot Manual Muscle Testing Left Dorsiflexion (L4) 5 Normal Plantarflexion (S1) 5 Normal Comments 20 heel raises Right Dorsiflexion (L4) 5 Normal Plantarflexion (S1) 5 Normal Comments 20 heel raises PT-OP-O Vestibular Start: 08/22/20 07:37 Freq: Status: Active Protocol: Document 08/23/20 12:13 [facility] (Rec: 08/23/20 14:14 MB [id number]) Vestibular Assessment Visual Testing Smooth Pursuits Horizontal Normal Smooth Pursuits Vertical Normal Gaze Evoked Nystagmus With Fixation Negative Convergence Test R impaired Spontaneous Nystagmus Negative Comments Vestibular Comments Left pupil with decreased reactivity to pen light but very minimal PT-OP-Q Treatments Start: 08/22/20 07:37 Freq: Status: Active Protocol: Document 08/22/22 11:21 [facility] (Rec: 08/22/22 12:15 [facility] [id number]) Gym Equipment Shuttle Balance BLUE CLIPS Comments fwd: WBOS, NBOS, staggered stance B Manual Therapy Treatment Soft Tissue Mobilization cervical Body Location L>R SO, cervical paraspinals, scalnes, SCM Mobilization Type Rolling,Strumming,Sustained Pressure Intensity/Depth Moderate Comments w/LTR Joint Mobilizations lumbar Comments gapping L4-5; L5-S1 transverse L 1 &2 L FM cervical Comments transverse R C3-5 FM Neuro Re-Education Treatment Balance Activities firm ground Comments NBOS & staggered stance w/head turns B Other Activities PNF Reps/Duration 15 min Comments 1. rhythmic initiation for post dep & ant eelvation of pelvis B 2. sustained holds for post dep & ant eelvation of pelvis B 3. irradiation from ant elevation of pelvis to ant dep of scap B progressed to sustained holds to COI B 4. irradiation from post dep of pelvis to post elevation of scap B progressed to sustained holds to COI B PT-OP-T Assessment and Plan Start: 08/22/20 07:37 Freq: Status: Active Protocol: Document 08/22/22 11:21 [facility] (Rec: 08/22/22 12:15 [facility] [id number]) Physical Therapy Assessment Goals 5 Mcfp Goal (LTG) Pt will gait train at least 1650 feet in 6 minutes without AD and no LOB or dragging finger on the wall for steadying assist by 08/31/21. 07/03/21: Pt gait trains 1654 feet in 6 minutes with occ left index finger dragging along wall to assist with balance with anti-clockwise gait. 06/02/21: Pt gait trains 1541 feet in 6 minutes, walking anti-clockwise. Twice, she rubs left hand on corner when turning to the left in the hallway. She has increased arms out and right arm swing and left LE does not move as well motor-viera compared to the right and requires effort to clear foot each time. Pt is wearing short wellingtons and this may cause exaggeration of lifting foot, requiring more effort which shows as such on the left. 03/29/21: Pt gait trains 1531 feet in 6 minutes, which is 3 feet further than when last tested in October 202008/30-1431ft 11/28-1481ft 02/20/22-1523ft touched wall 1x & mild instability throughout 05/07-1530ft w/less notable instability- only 2x slight uneven movement of trunk 07/16-occ touching of wall 1522ft LTG Duration 10/08/22 4 Mcfp Goal (LTG) Pt will be able to do all ROM of neck WNL w/o inc pain or feeling of nausea or dizziness LTG Duration 10/08/22 3 Short Term Goal (STG) Pt will perform progressive HEP with I including postural, flexibility, balance, LE strengthening, breathing, and VOR exercises to decrease symptoms and improve balance by 08/31/21. 07/03/21: Pt is performing band exercises for legs, back earring maker self-massage, breathing, walking the dog, pelvic realignment exercises and balance exercises in the hallway. She is doing exercises 1-2x/wk. 08/30-pt walking and doing exercises at home plan to update and progress program 11/28-advancing based on cont deficits STG Duration achieved and progressing as able Microarray Specialist Goal (LTG) Pt will have at least 4+/5 all LE MMT 02/20-abd, IR still limited but overall much improved 05/17-slowly improved 07/16-no major change LTG Duration 10/08/22 2 Mcfp Goal (LTG) Pt will report a 70% improvement in dizziness and headache symptoms to allow return to PLOF by 08/31/21. 07/03/21: Pt reports flare-up of symptoms since the snow. 03/29/21: Pt reports that in the recent weeks, her dizziness has gotten worse. It gets worse when she does not have PT for a long time and when she is playin with her down. Squatting too fast and sudden head movements are provocative. 08/30-pt reports no big change but does feel better fro the rest of the day after last session 11/28-dizziness has improved about 50%; ETIENNE about 75% improvement since start of PT 02/20-a lot of inc dizziness since tilt test 05/07-back to how it was prior to tilt test. ETIENNE worse in cold 07/16-adjust goal to Pt will report ETIENNE no greater than /10 LTG Duration 10/08/22 1 Impairment balance Short Term Goal (STG) Pt will be able to do SLS B 5 sec STG Duration 08/29/22 Microarray Specialist Goal (LTG) Pt will perform WNLs on FGA to decrease fall risk and improve balance by 08/31/21. 07/03/21: FGA score is slightly improved with score 18/30 and pt reporting gait with head turns up and down and walking with eyes closed being the most symptomatic. Tandem gait is still not very possible. Turning at the end of the hallway required her to reach out to catch her balance. 08/30- 11/28- improved 02/20--today was a bad day and pt scored same, but typically would do better on mult of the task. 05/07- 07/16- LTG Duration 10/08/22 Assessment Summary Assessment Pt and improved L SB w/manual treatment today. W/PNF pt had difficulty w/connection of scap to pelvis initially but improved w/irradiation. Physical Therapy Plan Frequency and Duration Frequency of Treatment 1-2x/wk Duration of treatment (weeks) 12 Plan of Care Start Date 07/16/22 Plan of Care End Date 10/08/22 Next Visit Focus/Plan Next Note Type Treatment Note Next Visit Plan cont to work on ability to flex and ext neck w/o symptoms & improve postural stability & core stability;L hip abd strength, work on balance for turning head and body w/o LOB
--- NOTE | 2022-08-28 16:25 | PT.OTN ---
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 Pt had fall and concussion then as passed out. In PMH, pt writes back pain, superficial blood clot right LE, ulcers. Current complaints include: dizziness when active (walking and movements of neck), decreased processing words, headaches managed by medications, trouble opening right side of jaw post-op, neck pain and stiffness. Pt denies falls since surgery. Pt is wearing an ice hat. Pt reports pain right side of head, left jaw and left thigh. ETIENNE pain gets up to 5/10 with medication. Her neck pain is 4 /10. Left leg pain gets up to 7/10. She reports left leg pain as deep and shooting. Pt reports pain with walking on left leg. Pt reports that her left leg feels weak. The Cymbalta helps with nerve pain . Pt reports that her right eye brown does not yet move after surgery and the right side of her head is swollen. Mother states that pt still does not have any appetite. Treatment Goals Patient/Caregiver Goals Decrease pain, increase balance and leg strength. PT-OP-C Subjective Start: 08/22/20 07:37 Freq: Status: Active Protocol: Document 08/28/22 16:20 [facility] (Rec: 08/28/22 16:25 [facility] [id number]) OP-PT Subjective Patient Comments Patient Comments Pt reports ETIENNE/dizzienss is the same PT-OP-D Balance Start: 08/22/20 07:37 Freq: Status: Active Protocol: Document 07/16/22 17:17 [facility] (Rec: 07/16/22 17:17 [facility] [id number]) Balance Tests Single Limb Standing Single Limb- Right 2 sec Single Limb- Left 2 sec PT-OP-E Functional Tests Start: 08/30/21 14:38 Freq: Status: Active Protocol: Document 07/16/22 17:17 [facility] (Rec: 07/16/22 17:17 [facility] [id number]) Functional Tests 6 Minute Walk Test Distance 1522ft Device Used none 30 Second Sit to Stand Test Score 10 Dynamic Gait Index (DGI) Score 17 Five Times Sit to Stand Test Score 15 sec Functional Gait Assessment Score 17 PT-OP-G Mobility & Gait Start: 08/22/20 07:37 Freq: Status: Active Protocol: Document 08/23/20 12:13 MB (Rec: 08/23/20 14:14 MB [id number]) OP Gait Assessment Gait Gait Assistance Required: Independent Distance (Feet) 50 Able to Maintain Weight Bearing Status Yes During Gait Assistive Devices Assistive Device None Orthotic/Prosthetic Devices or Brace: No Gait Deviations General Gait Pattern Decreased Stride Length Factors Limiting Gait Function Factors Limiting Gait Function Decreased Strength,Pain,Poor Balance Comments Gait Comments Pt favors the left leg, looks down at the floor, presents with hesitancy with gait PT-OP-H Neuro Start: 08/22/20 07:37 Freq: Status: Active Protocol: Document 08/23/20 12:13 MB (Rec: 08/23/20 14:14 MB [id number]) Sensation Evaluation Comments Summary Comments Pt reports numbness right temporal area and eye brow Coordination Evaluation Upper Extremity Tests Right Finger to Nose Test Normal Performance Pronation/Supination Test Normal Performance Left Finger to Nose Test Normal Performance Pronation/Supination Test Minimal Impairment Comments Coordination Comments Right toe tapping over opposite foot normal x5 reps, rapid and accurate. Slow with left toe tapping over right foot and inaccurate, given for exercise for home: 10 reps every hour when sitting Vital Signs Pulse 1 Pulse at Rest (bpm) 77 Pulse Assessment Method Cuff Blood Pressure Sitting Blood Pressure (90/60-120/80 mmHg) 132/90 H Blood Pressure Source Automatic Cuff,Right Upper Extremity Comments Vital Signs Comments Doctor note for BP written under precautions, pt is in recommended range today PT-OP-J Posture/Palpation/Skin Start: 08/22/20 07:37 Freq: Status: Active Protocol: Document 07/16/22 17:17 [facility] (Rec: 07/16/22 17:17 [facility] [id number]) Posture Evaluation Mihir Postural Classification System Vertebral Compression Test 3 Lumbar Protective Mechanism Left AP 1 Lumbar Protective Mechanism Right AP 2 Lumbar Protective Mechanism Left PA 2 Lumbar Protective Mechanism Right PA 1 PT-OP-K Range of Motion Start: 08/22/20 07:37 Freq: Status: Active Protocol: Document 07/16/22 17:17 [facility] (Rec: 07/16/22 17:20 [facility] [id number]) Cervical Spine Range of Motion Cervical Spine Active Degrees Flexion 56 Extension 48 Rotation Left 62 Rotation Right 71 Lateral Flexion Left 45 Lateral Flexion Right 50 Comments mild nausea w/flex, nausea & pain in neck (pinch), pinching R w/R SB; dizzy w/L rot PT-OP-M Strength Start: 08/22/20 07:37 Freq: Status: Active Protocol: Document 07/16/22 17:17 [facility] (Rec: 07/16/22 17:17 [facility] [id number]) Cervical Spine Strength Cervical Spine Manual Muscle Testing Flexion (C1-2) 3+ Fair+ Extension 3+ Fair+ Rotation Left 4 Good Rotation Right 4 Good Lateral Flexion Left (C3) 4 Good Lateral Flexion Right (C3) 4 Good Hip Strength Hip Manual Muscle Testing Left Flexion (L2) 4 Good Extension (S1) 4 Good Abduction 4- Good- Adduction 5 Normal External Rotation 5 Normal Internal Rotation 4 Good Right Flexion (L2) 4 Good Extension (S1) 4 Good Abduction 4+ Good+ Adduction 5 Normal External Rotation 5 Normal Internal Rotation 4+ Good+ Knee Strength Knee Manual Muscle Testing Left Flexion (S2) 5 Normal Extension (L3) 5 Normal Comments Pt sitting Right Flexion (S2) 5 Normal Extension (L3) 5 Normal Comments Pt sitting Ankle/Foot Strength Ankle and Foot Manual Muscle Testing Left Dorsiflexion (L4) 5 Normal Plantarflexion (S1) 5 Normal Comments 20 heel raises Right Dorsiflexion (L4) 5 Normal Plantarflexion (S1) 5 Normal Comments 20 heel raises PT-OP-O Vestibular Start: 08/22/20 07:37 Freq: Status: Active Protocol: Document 08/23/20 12:13 MB (Rec: 08/23/20 14:14 MB [id number]) Vestibular Assessment Visual Testing Smooth Pursuits Horizontal Normal Smooth Pursuits Vertical Normal Gaze Evoked Nystagmus With Fixation Negative Convergence Test R impaired Spontaneous Nystagmus Negative Comments Vestibular Comments Left pupil with decreased reactivity to pen light but very minimal PT-OP-Q Treatments Start: 08/22/20 07:37 Freq: Status: Active Protocol: Document 08/28/22 16:20 [facility] (Rec: 08/28/22 16:25 [facility] [id number]) Therapeutic Exercises Sitting Exercises chin tuck Sitting Exercise Name axial elongation Reps/Minutes 5 Standing Exercises paloff press Side bilateral Equipment Used L1 band 2 strands Reps/Minutes 12 ea wall posture Standing Exercise Name wall roll up w/modified pivot prone & B shoulder ext Side bilateral Reps/Minutes 1 min holds x2 Comments required inc time each time to get into set up Other Exercises Kneeling Other Exercise Name on blue foam w/tband over head w/pertubations Side bilateral Equipment Used L3 Reps/Minutes 1 min ea quadruped Other Exercise Name alt hip ext Side bilateral Reps/Minutes 10 Comments cues for head and back position Manual Therapy Treatment Soft Tissue Mobilization cervical Body Location B cervical paraspinals, scalnes, SCM Mobilization Type Rolling,Strumming,Sustained Pressure Intensity/Depth Moderate Comments w/LTR Joint Mobilizations thoracic Comments PA & UPA R T2-4 FM sternum Direction AP FM Neuro Re-Education Treatment Balance Activities bosu Details fwd & lat step ups Surface bosu blue Reps/Duration 10 ea PT-OP-T Assessment and Plan Start: 08/22/20 07:37 Freq: Status: Active Protocol: Document 08/28/22 16:20 [facility] (Rec: 08/28/22 16:25 [facility] [id number]) Physical Therapy Assessment Goals 5 Rubber Goods Repairer Goal (LTG) Pt will gait train at least 1650 feet in 6 minutes without AD and no LOB or dragging finger on the wall for steadying assist by 08/31/21. 07/03/21: Pt gait trains 1654 feet in 6 minutes with occ left index finger dragging along wall to assist with balance with anti-clockwise gait. 06/02/21: Pt gait trains 1541 feet in 6 minutes, walking anti-clockwise. Twice, she rubs left hand on corner when turning to the left in the hallway. She has increased arms out and right arm swing and left LE does not move as well motor-viera compared to the right and requires effort to clear foot each time. Pt is wearing short wellingtons and this may cause exaggeration of lifting foot, requiring more effort which shows as such on the left. 03/29/21: Pt gait trains 1531 feet in 6 minutes, which is 3 feet further than when last tested in October 202008/30-1431ft 11/28-1481ft 02/20/22-1523ft touched wall 1x & mild instability throughout 05/07-1530ft w/less notable instability- only 2x slight uneven movement of trunk 07/16-occ touching of wall 1522ft LTG Duration 10/08/22 4 Rubber Goods Repairer Goal (LTG) Pt will be able to do all ROM of neck WNL w/o inc pain or feeling of nausea or dizziness LTG Duration 10/08/22 3 Short Term Goal (STG) Pt will perform progressive HEP with I including postural, flexibility, balance, LE strengthening, breathing, and VOR exercises to decrease symptoms and improve balance by 08/31/21. 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 She is doing exercises 1-2x/wk. 08/30-pt walking and doing exercises at home plan to update and progress program 11/28-advancing based on cont deficits STG Duration achieved and progressing as able Rubber Goods Repairer Goal (LTG) Pt will have at least 4+/5 all LE MMT 02/20-abd, IR still limited but overall much improved 05/17-slowly improved 07/16-no major change LTG Duration 10/08/22 2 Fpc Goal (LTG) Pt will report a 70% improvement in dizziness and headache symptoms to allow return to PLOF by 08/31/21. 07/03/21: Pt reports flare-up of symptoms since the snow. 03/29/21: Pt reports that in the recent weeks, her dizziness has gotten worse. It gets worse when she does not have PT for a long time and when she is playin with her down. Squatting too fast and sudden head movements are provocative. 08/30-pt reports no big change but does feel better fro the rest of the day after last session 11/28-dizziness has improved about 50%; ETIENNE about 75% improvement since start of PT 02/20-a lot of inc dizziness since tilt test 05/07-back to how it was prior to tilt test. ETIENNE worse in cold 07/16-adjust goal to Pt will report ETIENNE no greater than 10 LTG Duration 10/08/22 1 Impairment balance Short Term Goal (STG) Pt will be able to do SLS B 5 sec STG Duration 08/29/22 Rubber Goods Repairer Goal (LTG) Pt will perform WNLs on FGA to decrease fall risk and improve balance by 08/31/21. 07/03/21: FGA score is slightly improved with score 18/30 and pt reporting gait with head turns up and down and walking with eyes closed being the most symptomatic. Tandem gait is still not very possible. Turning at the end of the hallway required her to reach out to catch her balance. 08/30- 11/28- improved 02/20--today was a bad day and pt scored same, but typically would do better on mult of the task. 05/07- 07/16- LTG Duration 10/08/22 Assessment Summary Assessment Pt had good ROM today in SB and rotation B passively but did note some nausea w/ rotations & flex. She did well with core and balance activities but had more difficultly w/pertubations to L. Physical Therapy Plan Frequency and Duration Frequency of Treatment 1-2x/wk Duration of treatment (weeks) 12 Plan of Care Start Date 07/16/22 Plan of Care End Date 10/08/22 Next Visit Focus/Plan Next Note Type Treatment Note Next Visit Plan cont to work on ability to flex and ext neck w/o symptoms & improve postural stability & core stability;L hip abd strength, work on balance for turning head and body w/o LOB
--- NOTE | 2022-09-10 14:23 | PT.OTN ---
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 (Rec: 09/10/22 14:22 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 Pt had fall and concussion then as passed out. In PMH, pt writes back pain, superficial blood clot right LE, ulcers. Current complaints include: dizziness when active (walking and movements of neck), decreased processing words, headaches managed by medications, trouble opening right side of jaw post-op, neck pain and stiffness. Pt denies falls since surgery. Pt is wearing an ice hat. Pt reports pain right side of head, left jaw and left thigh. ETIENNE pain gets up to 5/10 with medication. Her neck pain is 4 /10. Left leg pain gets up to 7/10. She reports left leg pain as deep and shooting. Pt reports pain with walking on left leg. Pt reports that her left leg feels weak. The Cymbalta helps with nerve pain . Pt reports that her right eye brown does not yet move after surgery and the right side of her head is swollen. Mother states that pt still does not have any appetite. Treatment Goals Patient/Caregiver Goals Decrease pain, increase balance and leg strength. PT-OP-C Subjective Start: 08/22/20 07:37 Freq: Status: Active Protocol: Document 09/10/22 13:00 [facility] (Rec: 09/10/22 14:22 [facility] [id number]) OP-PT Subjective Patient Comments Patient Comments Pt reports woke up this AM with severe back pain and has been in bed all day. Happened also last saturday with no known cause but seh was fine the next day after resting and heating all day PT-OP-D Balance Start: 08/22/20 07:37 Freq: Status: Active Protocol: Document 07/16/22 17:17 [facility] (Rec: 07/16/22 17:17 [facility] [id number]) Balance Tests Single Limb Standing Single Limb- Right 2 sec Single Limb- Left 2 sec PT-OP-E Functional Tests Start: 08/30/21 14:38 Freq: Status: Active Protocol: Document 07/16/22 17:17 [facility] (Rec: 07/16/22 17:17 [facility] [id number]) Functional Tests 6 Minute Walk Test Distance 1522ft Device Used none 30 Second Sit to Stand Test Score 10 Dynamic Gait Index (DGI) Score 17 Five Times Sit to Stand Test Score 15 sec Functional Gait Assessment Score 17 PT-OP-G Mobility & Gait Start: 08/22/20 07:37 Freq: Status: Active Protocol: Document 08/23/20 12:13 MB (Rec: 08/23/20 14:14 MB [id number]) OP Gait Assessment Gait Gait Assistance Required: Independent Distance (Feet) 50 Able to Maintain Weight Bearing Status Yes During Gait Assistive Devices Assistive Device None Orthotic/Prosthetic Devices or Brace: No Gait Deviations General Gait Pattern Decreased Stride Length Factors Limiting Gait Function Factors Limiting Gait Function Decreased Strength,Pain,Poor Balance Comments Gait Comments Pt favors the left leg, looks down at the floor, presents with hesitancy with gait PT-OP-H Neuro Start: 08/22/20 07:37 Freq: Status: Active Protocol: Document 08/23/20 12:13 MB (Rec: 08/23/20 14:14 MB [id number]) Sensation Evaluation Comments Summary Comments Pt reports numbness right temporal area and eye brow Coordination Evaluation Upper Extremity Tests Right Finger to Nose Test Normal Performance Pronation/Supination Test Normal Performance Left Finger to Nose Test Normal Performance Pronation/Supination Test Minimal Impairment Comments Coordination Comments Right toe tapping over opposite foot normal x5 reps, rapid and accurate. Slow with left toe tapping over right foot and inaccurate, given for exercise for home: 10 reps every hour when sitting Vital Signs Pulse 1 Pulse at Rest (bpm) 77 Pulse Assessment Method Cuff Blood Pressure Sitting Blood Pressure (90/60-120/80 mmHg) 132/90 H Blood Pressure Source Automatic Cuff,Right Upper Extremity Comments Vital Signs Comments Doctor note for BP written under precautions, pt is in recommended range today PT-OP-J Posture/Palpation/Skin Start: 08/22/20 07:37 Freq: Status: Active Protocol: Document 07/16/22 17:17 [facility] (Rec: 07/16/22 17:17 [facility] [id number]) Posture Evaluation [facility] Postural Classification System Vertebral Compression Test 3 Lumbar Protective Mechanism Left AP 1 Lumbar Protective Mechanism Right AP 2 Lumbar Protective Mechanism Left PA 2 Lumbar Protective Mechanism Right PA 1 PT-OP-K Range of Motion Start: 08/22/20 07:37 Freq: Status: Active Protocol: Document 07/16/22 17:17 [facility] (Rec: 07/16/22 17:20 [facility] [id number]) Cervical Spine Range of Motion Cervical Spine Active Degrees Flexion 56 Extension 48 Rotation Left 62 Rotation Right 71 Lateral Flexion Left 45 Lateral Flexion Right 50 Comments mild nausea w/flex, nausea & pain in neck (pinch), pinching R w/R SB; dizzy w/L rot PT-OP-M Strength Start: 08/22/20 07:37 Freq: Status: Active Protocol: Document 07/16/22 17:17 [facility] (Rec: 07/16/22 17:17 [facility] [id number]) Cervical Spine Strength Cervical Spine Manual Muscle Testing Flexion (C1-2) 3+ Fair+ Extension 3+ Fair+ Rotation Left 4 Good Rotation Right 4 Good Lateral Flexion Left (C3) 4 Good Lateral Flexion Right (C3) 4 Good Hip Strength Hip Manual Muscle Testing Left Flexion (L2) 4 Good Extension (S1) 4 Good Abduction 4- Good- Adduction 5 Normal External Rotation 5 Normal Internal Rotation 4 Good Right Flexion (L2) 4 Good Extension (S1) 4 Good Abduction 4+ Good+ Adduction 5 Normal External Rotation 5 Normal Internal Rotation 4+ Good+ Knee Strength Knee Manual Muscle Testing Left Flexion (S2) 5 Normal Extension (L3) 5 Normal Comments Pt sitting Right Flexion (S2) 5 Normal Extension (L3) 5 Normal Comments Pt sitting Ankle/Foot Strength Ankle and Foot Manual Muscle Testing Left Dorsiflexion (L4) 5 Normal Plantarflexion (S1) 5 Normal Comments 20 heel raises Right Dorsiflexion (L4) 5 Normal Plantarflexion (S1) 5 Normal Comments 20 heel raises PT-OP-O Vestibular Start: 08/22/20 07:37 Freq: Status: Active Protocol: Document 08/23/20 12:13 MB (Rec: 08/23/20 14:14 MB [id number]) Vestibular Assessment Visual Testing Smooth Pursuits Horizontal Normal Smooth Pursuits Vertical Normal Gaze Evoked Nystagmus With Fixation Negative Convergence Test R impaired Spontaneous Nystagmus Negative Comments Vestibular Comments Left pupil with decreased reactivity to pen light but very minimal PT-OP-Q Treatments Start: 08/22/20 07:37 Freq: Status: Active Protocol: Document 09/10/22 13:00 [facility] (Rec: 09/10/22 14:22 [facility] [id number]) Manual Therapy Treatment Soft Tissue Mobilization LE Body Location HS & calf Mobilization Type Rolling Intensity/Depth Moderate Comments w/passive ext hip Body Location L psoas proximally and distally & pirifromis Mobilization Type Sustained Pressure QL Body Location L QL &ES & colon Mobilization Type Rolling,Strumming Intensity/Depth Moderate Body Position Sidelying & suipine Joint Mobilizations lumbar Comments gapping L 5-S1 FM innominate Comments L caudal FM & flex FM hip Joint L inf FM PT-OP-R Modalities Start: 08/22/20 07:37 Freq: Status: Active Protocol: Document 09/10/22 13:00 [facility] (Rec: 09/10/22 14:23 [facility] [id number]) Hot Pack/Cold Pack Treatment Cold Pack Location LS Patient Position Hooklying Treatment Duration (minutes) 10 PT-OP-T Assessment and Plan Start: 08/22/20 07:37 Freq: Status: Active Protocol: Document 09/10/22 13:00 [facility] (Rec: 09/10/22 14:22 [facility] [id number]) Physical Therapy Assessment Goals 5 Chief Wharfinger Goal (LTG) Pt will gait train at least 1650 feet in 6 minutes without AD and no LOB or dragging finger on the wall for steadying assist by 08/31/21. 07/03/21: Pt gait trains 1654 feet in 6 minutes with occ left index finger dragging along wall to assist with balance with anti-clockwise gait. 06/02/21: Pt gait trains 1541 feet in 6 minutes, walking anti-clockwise. Twice, she rubs left hand on corner when turning to the left in the hallway. She has increased arms out and right arm swing and left LE does not move as well motor-viera compared to the right and requires effort to clear foot each time. Pt is wearing short wellingtons and this may cause exaggeration of lifting foot, requiring more effort which shows as such on the left. 03/29/21: Pt gait trains 1531 feet in 6 minutes, which is 3 feet further than when last tested in October 202008/30-1431ft 11/28-1481ft 02/20/22-1523ft touched wall 1x & mild instability throughout 05/07-1530ft w/less notable instability- only 2x slight uneven movement of trunk 07/16-occ touching of wall 1522ft LTG Duration 10/08/22 4 Chief Wharfinger Goal (LTG) Pt will be able to do all ROM of neck WNL w/o inc pain or feeling of nausea or dizziness LTG Duration 10/08/22 3 Short Term Goal (STG) Pt will perform progressive HEP with I including postural, flexibility, balance, LE strengthening, breathing, and VOR exercises to decrease symptoms and improve balance by 08/31/21. 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 She is doing exercises 1-2x/wk. 08/30-pt walking and doing exercises at home plan to update and progress program 11/28-advancing based on cont deficits STG Duration achieved and progressing as able Chief Wharfinger Goal (LTG) Pt will have at least 4+/5 all LE MMT 02/20-abd, IR still limited but overall much improved 05/17-slowly improved 07/16-no major change LTG Duration 10/08/22 2 Assisted Goal (LTG) Pt will report a 70% improvement in dizziness and headache symptoms to allow return to PLOF by 08/31/21. 07/03/21: Pt reports flare-up of symptoms since the snow. 03/29/21: Pt reports that in the recent weeks, her dizziness has gotten worse. It gets worse when she does not have PT for a long time and when she is playin with her down. Squatting too fast and sudden head movements are provocative. 08/30-pt reports no big change but does feel better fro the rest of the day after last session 11/28-dizziness has improved about 50%; ETIENNE about 75% improvement since start of PT 02/20-a lot of inc dizziness since tilt test 05/07-back to how it was prior to tilt test. ETIENNE worse in cold 07/16-adjust goal to Pt will report ETIENNE no greater than /10 LTG Duration 10/08/22 1 Impairment balance Short Term Goal (STG) Pt will be able to do SLS B 5 sec STG Duration 08/29/22 Assisted Goal (LTG) Pt will perform WNLs on FGA to decrease fall risk and improve balance by 08/31/21. 07/03/21: FGA score is slightly improved with score 18/30 and pt reporting gait with head turns up and down and walking with eyes closed being the most symptomatic. Tandem gait is still not very possible. Turning at the end of the hallway required her to reach out to catch her balance. 08/30- 11/28- improved 02/20--today was a bad day and pt scored same, but typically would do better on mult of the task. 05/07- 07/16- LTG Duration 10/08/22 Assessment Summary Assessment Pt encouraged to let MD know about how bad her back pain has gotten recently as she has had 2 severe episodes in the past week with resolution last time w/in a day. She had improved gait pattern w/manual treatment and improved LLE SLR after. She still had dec stance time on LLE as she amb out though. Encouraged to ice. Physical Therapy Plan Frequency and Duration Frequency of Treatment 1-2x/wk Duration of treatment (weeks) 12 Plan of Care Start Date 07/16/22 Plan of Care End Date 10/08/22 Next Visit Focus/Plan Next Note Type Treatment Note Next Visit Plan assess pt reponse to last rx & how back is doing
--- NOTE | 2022-09-20 09:27 | PT.OTN ---
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) Headache, unspecified (09/20/22) Weakness (09/20/22) Physical Therapy Treatment Note PT-OP-A Visit Information Start: 08/22/20 07:37 Freq: Status: Active Protocol: Document 09/20/22 07:31 [facility] (Rec: 09/20/22 09:26 [facility] [id number]) Out-Patient Physical Therapy Visit Information Visit Information Visit Type Treatment Note Visit Start Time 07:32 Visit Stop Time 08:13 Total Visit Minutes 41 Visit Number 02/21 2023 Number of RV DETAILER Visits 0 PT-OP-B Current Condition Start: 08/22/20 07:37 Freq: Status: Active Protocol: Document 08/23/20 12:13 [facility] (Rec: 08/23/20 13:04 MB [id number]) Current Condition History of Current Condition Onset Date Surgery 07/27/20 Current Complaints Dizziness, light-headedness, ETIENNE and left leg pain and imbalance History of Current Condition 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 Pt had fall and concussion then as passed out. In PMH, pt writes back pain, superficial blood clot right LE, ulcers. Current complaints include: dizziness when active (walking and movements of neck), decreased processing words, headaches managed by medications, trouble opening right side of jaw post-op, neck pain and stiffness. Pt denies falls since surgery. Pt is wearing an ice hat. Pt reports pain right side of head, left jaw and left thigh. ETIENNE pain gets up to 5/10 with medication. Her neck pain is 4 /10. Left leg pain gets up to 7/10. She reports left leg pain as deep and shooting. Pt reports pain with walking on left leg. Pt reports that her left leg feels weak. The Cymbalta helps with nerve pain . Pt reports that her right eye brown does not yet move after surgery and the right side of her head is swollen. Mother states that pt still does not have any appetite. Treatment Goals Patient/Caregiver Goals Decrease pain, increase balance and leg strength. PT-OP-C Subjective Start: 08/22/20 07:37 Freq: Status: Active Protocol: Document 09/20/22 07:31 [facility] (Rec: 09/20/22 09:26 [facility] [id number]) OP-PT Subjective Patient Comments Patient Comments Pt reports her reg L leg pain is back sine her flare up. LAst PT session helped. She connacted Primary MD who told her to only go see someone only if leg goes numb. pain is constant when its on. PT-OP-D Balance Start: 08/22/20 07:37 Freq: Status: Active Protocol: Document 07/16/22 17:17 [facility] (Rec: 07/16/22 17:17 [facility] [id number]) Balance Tests Single Limb Standing Single Limb- Right 2 sec Single Limb- Left 2 sec PT-OP-E Functional Tests Start: 08/30/21 14:38 Freq: Status: Active Protocol: Document 07/16/22 17:17 [facility] (Rec: 07/16/22 17:17 [facility] [id number]) Functional Tests 6 Minute Walk Test Distance 1522ft Device Used none 30 Second Sit to Stand Test Score 10 Dynamic Gait Index (DGI) Score 17 Five Times Sit to Stand Test Score 15 sec Functional Gait Assessment Score 17 PT-OP-G Mobility & Gait Start: 08/22/20 07:37 Freq: Status: Active Protocol: Document 08/23/20 12:13 MB (Rec: 08/23/20 14:14 MB [id number]) OP Gait Assessment Gait Gait Assistance Required: Independent Distance (Feet) 50 Able to Maintain Weight Bearing Status Yes During Gait Assistive Devices Assistive Device None Orthotic/Prosthetic Devices or Brace: No Gait Deviations General Gait Pattern Decreased Stride Length Factors Limiting Gait Function Factors Limiting Gait Function Decreased Strength,Pain,Poor Balance Comments Gait Comments Pt favors the left leg, looks down at the floor, presents with hesitancy with gait PT-OP-H Neuro Start: 08/22/20 07:37 Freq: Status: Active Protocol: Document 08/23/20 12:13 [facility] (Rec: 08/23/20 14:14 MB [id number]) Sensation Evaluation Comments Summary Comments Pt reports numbness right temporal area and eye brow Coordination Evaluation Upper Extremity Tests Right Finger to Nose Test Normal Performance Pronation/Supination Test Normal Performance Left Finger to Nose Test Normal Performance Pronation/Supination Test Minimal Impairment Comments Coordination Comments Right toe tapping over opposite foot normal x5 reps, rapid and accurate. Slow with left toe tapping over right foot and inaccurate, given for exercise for home: 10 reps every hour when sitting Vital Signs Pulse 1 Pulse at Rest (bpm) 77 Pulse Assessment Method Cuff Blood Pressure Sitting Blood Pressure (90/60-120/80 mmHg) 132/90 H Blood Pressure Source Automatic Cuff,Right Upper Extremity Comments Vital Signs Comments Doctor note for BP written under precautions, pt is in recommended range today PT-OP-J Posture/Palpation/Skin Start: 08/22/20 07:37 Freq: Status: Active Protocol: Document 07/16/22 17:17 [facility] (Rec: 07/16/22 17:17 [facility] [id number]) Posture Evaluation [facility] Postural Classification System Vertebral Compression Test 3 Lumbar Protective Mechanism Left AP 1 Lumbar Protective Mechanism Right AP 2 Lumbar Protective Mechanism Left PA 2 Lumbar Protective Mechanism Right PA 1 PT-OP-K Range of Motion Start: 08/22/20 07:37 Freq: Status: Active Protocol: Document 07/16/22 17:17 [facility] (Rec: 07/16/22 17:20 [facility] [id number]) Cervical Spine Range of Motion Cervical Spine Active Degrees Flexion 56 Extension 48 Rotation Left 62 Rotation Right 71 Lateral Flexion Left 45 Lateral Flexion Right 50 Comments mild nausea w/flex, nausea & pain in neck (pinch), pinching R w/R SB; dizzy w/L rot PT-OP-M Strength Start: 08/22/20 07:37 Freq: Status: Active Protocol: Document 07/16/22 17:17 [facility] (Rec: 07/16/22 17:17 [facility] [id number]) Cervical Spine Strength Cervical Spine Manual Muscle Testing Flexion (C1-2) 3+ Fair+ Extension 3+ Fair+ Rotation Left 4 Good Rotation Right 4 Good Lateral Flexion Left (C3) 4 Good Lateral Flexion Right (C3) 4 Good Hip Strength Hip Manual Muscle Testing Left Flexion (L2) 4 Good Extension (S1) 4 Good Abduction 4- Good- Adduction 5 Normal External Rotation 5 Normal Internal Rotation 4 Good Right Flexion (L2) 4 Good Extension (S1) 4 Good Abduction 4+ Good+ Adduction 5 Normal External Rotation 5 Normal Internal Rotation 4+ Good+ Knee Strength Knee Manual Muscle Testing Left Flexion (S2) 5 Normal Extension (L3) 5 Normal Comments Pt sitting Right Flexion (S2) 5 Normal Extension (L3) 5 Normal Comments Pt sitting Ankle/Foot Strength Ankle and Foot Manual Muscle Testing Left Dorsiflexion (L4) 5 Normal Plantarflexion (S1) 5 Normal Comments 20 heel raises Right Dorsiflexion (L4) 5 Normal Plantarflexion (S1) 5 Normal Comments 20 heel raises PT-OP-O Vestibular Start: 08/22/20 07:37 Freq: Status: Active Protocol: Document 08/23/20 12:13 [facility] (Rec: 08/23/20 14:14 MB [id number]) Vestibular Assessment Visual Testing Smooth Pursuits Horizontal Normal Smooth Pursuits Vertical Normal Gaze Evoked Nystagmus With Fixation Negative Convergence Test R impaired Spontaneous Nystagmus Negative Comments Vestibular Comments Left pupil with decreased reactivity to pen light but very minimal PT-OP-Q Treatments Start: 08/22/20 07:37 Freq: Status: Active Protocol: Document 09/20/22 07:31 [facility] (Rec: 09/20/22 09:26 [facility] [id number]) Therapeutic Exercises Supine Exercises Tabd Supine Exercise Name w/march Side bilateral Equipment Used cues TA and opp leg press Reps/Minutes 10 core Supine Exercise Name DL press Side bilateral Reps/Minutes 30 sec Standing Exercises paloff press Side bilateral Equipment Used L1 band 2 strands Reps/Minutes 15 ea sidestep Standing Exercise Name in hands focus on core Side bilateral Equipment Used l1 2 bands Reps/Minutes 10 ea stretch Standing Exercise Name hip flexor stretch Side left Reps/Minutes 30 sec Manual Therapy Treatment Soft Tissue Mobilization LE Body Location add L Mobilization Type Rolling Intensity/Depth Moderate Comments w/rot hip Body Location L psoas proximally and distally & pirifromis Mobilization Type Sustained Pressure cervical Body Location B cervical paraspinals, scalnes, SCM Mobilization Type Rolling,Strumming,Sustained Pressure Intensity/Depth Moderate Comments w/LTR cranial fascia Body Location R>L Mobilization Type Myofascial Release Intensity/Depth Superficial Body Position Hooklying Comments and into R forehead w/LTR Joint Mobilizations innominate Comments L pubic bone inf FM hip Joint L inf & IR FM Body Position Hooklying PT-OP-R Modalities Start: 08/22/20 07:37 Freq: Status: Active Protocol: Document 09/10/22 13:00 [facility] (Rec: 09/10/22 14:23 [facility] [id number]) Hot Pack/Cold Pack Treatment Cold Pack Location LS Patient Position Hooklying Treatment Duration (minutes) 10 PT-OP-T Assessment and Plan Start: 08/22/20 07:37 Freq: Status: Active Protocol: Document 09/20/22 07:31 [facility] (Rec: 09/20/22 09:26 [facility] [id number]) Physical Therapy Assessment Goals 5 C D Area Supervisor Goal (LTG) Pt will gait train at least 1650 feet in 6 minutes without AD and no LOB or dragging finger on the wall for steadying assist by 08/31/21. 07/03/21: Pt gait trains 1654 feet in 6 minutes with occ left index finger dragging along wall to assist with balance with anti-clockwise gait. 06/02/21: Pt gait trains 1541 feet in 6 minutes, walking anti-clockwise. Twice, she rubs left hand on corner when turning to the left in the hallway. She has increased arms out and right arm swing and left LE does not move as well motor-viera compared to the right and requires effort to clear foot each time. Pt is wearing short wellingtons and this may cause exaggeration of lifting foot, requiring more effort which shows as such on the left. 03/29/21: Pt gait trains 1531 feet in 6 minutes, which is 3 feet further than when last tested in October 202008/30-1431ft 11/28-1481ft 02/20/22-1523ft touched wall 1x & mild instability throughout 05/07-1530ft w/less notable instability- only 2x slight uneven movement of trunk 07/16-occ touching of wall 1522ft LTG Duration 10/08/22 4 C D Area Supervisor Goal (LTG) Pt will be able to do all ROM of neck WNL w/o inc pain or feeling of nausea or dizziness LTG Duration 10/08/22 3 Short Term Goal (STG) Pt will perform progressive HEP with I including postural, flexibility, balance, LE strengthening, breathing, and VOR exercises to decrease symptoms and improve balance by 08/31/21. 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 She is doing exercises 1-2x/wk. 08/30-pt walking and doing exercises at home plan to update and progress program 11/28-advancing based on cont deficits STG Duration achieved and progressing as able Residential Goal (LTG) Pt will have at least 4+/5 all LE MMT 02/20-abd, IR still limited but overall much improved 05/17-slowly improved 07/16-no major change LTG Duration 10/08/22 2 C D Area Supervisor Goal (LTG) Pt will report a 70% improvement in dizziness and headache symptoms to allow return to PLOF by 08/31/21. 07/03/21: Pt reports flare-up of symptoms since the snow. 03/29/21: Pt reports that in the recent weeks, her dizziness has gotten worse. It gets worse when she does not have PT for a long time and when she is playin with her down. Squatting too fast and sudden head movements are provocative. 08/30-pt reports no big change but does feel better fro the rest of the day after last session 11/28-dizziness has improved about 50%; ETIENNE about 75% improvement since start of PT 02/20-a lot of inc dizziness since tilt test 05/07-back to how it was prior to tilt test. ETIENNE worse in cold 07/16-adjust goal to Pt will report ETIENNE no greater than 10/08 LTG Duration 10/08/22 1 Impairment balance Short Term Goal (STG) Pt will be able to do SLS B 5 sec STG Duration 08/29/22 C D Area Supervisor Goal (LTG) Pt will perform WNLs on FGA to decrease fall risk and improve balance by 08/31/21. 07/03/21: FGA score is slightly improved with score 18/30 and pt reporting gait with head turns up and down and walking with eyes closed being the most symptomatic. Tandem gait is still not very possible. Turning at the end of the hallway required her to reach out to catch her balance. 08/30- 11/28- improved 02/20--today was a bad day and pt scored same, but typically would do better on mult of the task. 05/07- 07/16- LTG Duration 10/08/22 Assessment Summary Assessment Pt did well exercises w/cues but does show dec core stabiltiy overall. Pt given written HEP today. She had improved L hip flex w.manual Physical Therapy Plan Frequency and Duration Frequency of Treatment 1-2x/wk Duration of treatment (weeks) 12 Plan of Care Start Date 07/16/22 Plan of Care End Date 10/08/22 Next Visit Focus/Plan Next Note Type Treatment Note Next Visit Plan cont tow ork on leg and neck mobility & core stabiltiy
--- NOTE | 2022-10-02 18:57 | PT.OTN ---
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 Pt had fall and concussion then as passed out. In PMH, pt writes back pain, superficial blood clot right LE, ulcers. Current complaints include: dizziness when active (walking and movements of neck), decreased processing words, headaches managed by medications, trouble opening right side of jaw post-op, neck pain and stiffness. Pt denies falls since surgery. Pt is wearing an ice hat. Pt reports pain right side of head, left jaw and left thigh. ETIENNE pain gets up to 5/10 with medication. Her neck pain is 4 /10. Left leg pain gets up to 7/10. She reports left leg pain as deep and shooting. Pt reports pain with walking on left leg. Pt reports that her left leg feels weak. The Cymbalta helps with nerve pain . Pt reports that her right eye brown does not yet move after surgery and the right side of her head is swollen. Mother states that pt still does not have any appetite. Treatment Goals Patient/Caregiver Goals Decrease pain, increase balance and leg strength. PT-OP-C Subjective Start: 08/22/20 07:37 Freq: Status: Active Protocol: Document 10/02/22 14:39 [facility] (Rec: 10/02/22 16:41 [facility] [id number]) OP-PT Subjective Patient Comments Patient Comments Pt reports LLE pain still present more. PT-OP-D Balance Start: 08/22/20 07:37 Freq: Status: Active Protocol: Document 10/02/22 14:39 [facility] (Rec: 10/02/22 16:41 [facility] [id number]) Balance Tests Single Limb Standing Single Limb- Right 3 sec Single Limb- Left 6 sec PT-OP-E Functional Tests Start: 08/30/21 14:38 Freq: Status: Active Protocol: Document 10/02/22 14:39 [facility] (Rec: 10/02/22 16:41 [facility] [id number]) Functional Tests 6 Minute Walk Test Distance 1500ft Device Used none Comments no LOB Functional Gait Assessment Score 23 PT-OP-G Mobility & Gait Start: 08/22/20 07:37 Freq: Status: Active Protocol: Document 08/23/20 12:13 MB (Rec: 08/23/20 14:14 MB [id number]) OP Gait Assessment Gait Gait Assistance Required: Independent Distance (Feet) 50 Able to Maintain Weight Bearing Status Yes During Gait Assistive Devices Assistive Device None Orthotic/Prosthetic Devices or Brace: No Gait Deviations General Gait Pattern Decreased Stride Length Factors Limiting Gait Function Factors Limiting Gait Function Decreased Strength,Pain,Poor Balance Comments Gait Comments Pt favors the left leg, looks down at the floor, presents with hesitancy with gait PT-OP-H Neuro Start: 08/22/20 07:37 Freq: Status: Active Protocol: Document 08/23/20 12:13 MB (Rec: 08/23/20 14:14 MB [id number]) Sensation Evaluation Comments Summary Comments Pt reports numbness right temporal area and eye brow Coordination Evaluation Upper Extremity Tests Right Finger to Nose Test Normal Performance Pronation/Supination Test Normal Performance Left Finger to Nose Test Normal Performance Pronation/Supination Test Minimal Impairment Comments Coordination Comments Right toe tapping over opposite foot normal x5 reps, rapid and accurate. Slow with left toe tapping over right foot and inaccurate, given for exercise for home: 10 reps every hour when sitting Vital Signs Pulse 1 Pulse at Rest (bpm) 77 Pulse Assessment Method Cuff Blood Pressure Sitting Blood Pressure (90/60-120/80 mmHg) 132/90 H Blood Pressure Source Automatic Cuff,Right Upper Extremity Comments Vital Signs Comments Doctor note for BP written under precautions, pt is in recommended range today PT-OP-J Posture/Palpation/Skin Start: 08/22/20 07:37 Freq: Status: Active Protocol: Document 07/16/22 17:17 [facility] (Rec: 07/16/22 17:17 [facility] [id number]) Posture Evaluation [facility] Postural Classification System Vertebral Compression Test 3 Lumbar Protective Mechanism Left AP 1 Lumbar Protective Mechanism Right AP 2 Lumbar Protective Mechanism Left PA 2 Lumbar Protective Mechanism Right PA 1 PT-OP-K Range of Motion Start: 08/22/20 07:37 Freq: Status: Active Protocol: Document 07/16/22 17:17 [facility] (Rec: 07/16/22 17:20 [facility] [id number]) Cervical Spine Range of Motion Cervical Spine Active Degrees Flexion 56 Extension 48 Rotation Left 62 Rotation Right 71 Lateral Flexion Left 45 Lateral Flexion Right 50 Comments mild nausea w/flex, nausea & pain in neck (pinch), pinching R w/R SB; dizzy w/L rot PT-OP-M Strength Start: 08/22/20 07:37 Freq: Status: Active Protocol: Document 10/02/22 14:39 [facility] (Rec: 10/02/22 16:41 [facility] [id number]) Hip Strength Hip Manual Muscle Testing Left Flexion (L2) 4+ Good+ Extension (S1) 4+ Good+ Abduction 4 Good Adduction 5 Normal External Rotation 5 Normal Internal Rotation 4+ Good+ Right Flexion (L2) 5 Normal Extension (S1) 5 Normal Abduction 5 Normal Adduction 5 Normal External Rotation 5 Normal Internal Rotation 5 Normal Knee Strength Knee Manual Muscle Testing Left Flexion (S2) 5 Normal Extension (L3) 5 Normal Comments Pt sitting Right Flexion (S2) 5 Normal Extension (L3) 5 Normal Comments Pt sitting Ankle/Foot Strength Ankle and Foot Manual Muscle Testing Left Dorsiflexion (L4) 5 Normal Plantarflexion (S1) 5 Normal Comments 20 heel raises Right Dorsiflexion (L4) 5 Normal Plantarflexion (S1) 5 Normal Comments 20 heel raises PT-OP-O Vestibular Start: 08/22/20 07:37 Freq: Status: Active Protocol: Document 08/23/20 12:13 MB (Rec: 08/23/20 14:14 MB [id number]) Vestibular Assessment Visual Testing Smooth Pursuits Horizontal Normal Smooth Pursuits Vertical Normal Gaze Evoked Nystagmus With Fixation Negative Convergence Test R impaired Spontaneous Nystagmus Negative Comments Vestibular Comments Left pupil with decreased reactivity to pen light but very minimal PT-OP-Q Treatments Start: 08/22/20 07:37 Freq: Status: Active Protocol: Document 10/02/22 14:39 [facility] (Rec: 10/02/22 16:41 [facility] [id number]) Manual Therapy Treatment Soft Tissue Mobilization cranial fascia Body Location R>L Mobilization Type Myofascial Release Intensity/Depth Superficial Body Position Hooklying Comments and into R forehead w/LTR Self-Care/Home Management Treatment Education Other Education 124/86; HR 65 PT-OP-R Modalities Start: 08/22/20 07:37 Freq: Status: Active Protocol: Document 09/10/22 13:00 [facility] (Rec: 09/10/22 14:23 [facility] [id number]) Hot Pack/Cold Pack Treatment Cold Pack Location LS Patient Position Hooklying Treatment Duration (minutes) 10 PT-OP-T Assessment and Plan Start: 08/22/20 07:37 Freq: Status: Active Protocol: Document 10/02/22 14:39 [facility] (Rec: 10/02/22 16:41 [facility] [id number]) Physical Therapy Assessment Goals 5 Senior Care Goal (LTG) Pt will gait train at least 1650 feet in 6 minutes without AD and no LOB or dragging finger on the wall for steadying assist by 08/31/21. 07/03/21: Pt gait trains 1654 feet in 6 minutes with occ left index finger dragging along wall to assist with balance with anti-clockwise gait. 06/02/21: Pt gait trains 1541 feet in 6 minutes, walking anti-clockwise. Twice, she rubs left hand on corner when turning to the left in the hallway. She has increased arms out and right arm swing and left LE does not move as well motor-viera compared to the right and requires effort to clear foot each time. Pt is wearing short wellingtons and this may cause exaggeration of lifting foot, requiring more effort which shows as such on the left. 03/29/21: Pt gait trains 1531 feet in 6 minutes, which is 3 feet further than when last tested in October 202008/30-143ft 11/28-14802/20/22-152 touched wall 1x & mild instability throughout 05/07-153 w/less notable instability- only 2x slight uneven movement of trunk 07/16-occ touching of wall 1522ft 10/02-1500ft (likely dec some d/ t change in set up so required pt to turn around more often) ; no touching wall LTG Duration 12/22 4 Explosive Operator Supervisor Goal (LTG) Pt will be able to do all ROM of neck WNL w/o inc pain or feeling of nausea or dizziness 10/02-still limited LTG Duration 12/24 3 Short Term Goal (STG) Pt will perform progressive HEP with I including postural, flexibility, balance, LE strengthening, breathing, and VOR exercises to decrease symptoms and improve balance by 08/31/21. 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 She is doing exercises 1-2x/wk. 08/30-pt walking and doing exercises at home plan to update and progress program 11/28-advancing based on cont deficits STG Duration achieved and progressing as able Explosive Operator Supervisor Goal (LTG) Pt will have at least 4+/5 all LE MMT 02/20-abd, IR still limited but overall much improved 05/17-slowly improved 07/16-no major change 10/02-abd only one not met LTG Duration 12/24 2 Senior Care Goal (LTG) adjusted goal: to Pt will report ETIENNE no greater than 4/10 10/02-pt reports no recent change w/ETIENNE LTG Duration 12/21 1 Impairment balance Short Term Goal (STG) Pt will be able to do SLS B 5 sec 10/02-achieved L but limited R still STG Duration 11/12/22 Senior Care Goal (LTG) Pt will perform WNLs on FGA to decrease fall risk and improve balance by 08/31/21. 07/03/21: FGA score is slightly improved with score 18/30 and pt reporting gait with head turns up and down and walking with eyes closed being the most symptomatic. Tandem gait is still not very possible. Turning at the end of the hallway required her to reach out to catch her balance. 08/30- 11/28- improved 02/20--today was a bad day and pt scored same, but typically would do better on mult of the task. 05/07- 07/16- LTG Duration achieved to Assessment Summary Assessment Pt did have instances of dizziness after completing balance testing and required small rest standign or sitting after doing some activities taht requried her to turn around or look up/down or close eyes. She did well on performance of test though and is showing improved balance. If pt does not turn around slowly, she does lose her balance and require grabbing outside source. Physical Therapy Plan Frequency and Duration Frequency of Treatment 1x/wk Duration of treatment (weeks) 12 Plan of Care Start Date 10/02/22 Plan of Care End Date 12/25/22 Therapeutic Interventions Therapeutic Interventions Balance Training,Canalithic Repositioning,Coordination Training,Gait Training,Home Exercise Program,Joint Mobilizations,Manual Therapy, Neuromuscular Re-education, Patient/Caregiver Education, Self-Care/Home Management, Sensory Integration,Soft Tissue Mobilization,Taping, Therapeutic Activities, Therapeutic Exercises, Vestibular Rehabilitation Modalities Cold Pack/Ice Massage,Electric Stimulation,Hot Packs, Ultrasound Next Visit Focus/Plan Next Note Type Treatment Note Next Visit Plan cont tow ork on leg and neck mobility & core stabiltiy; progress towards indep HEP
--- NOTE | 2022-10-02 18:57 | PT.OPPOC ---
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) Headache, unspecified (10/02/22) Weakness (10/02/22) Visit Care Team Role Provider Type Christen Figuerao PA-C Attending Provider Non-Staff Primary Care Provider Referring Provider Specialty: Family Practice Address: [address] [place] [address], [address], [place], [address] Email: Plan Of Care PT-OP-T Assessment and Plan Start: 08/22/20 07:37 Freq: Status: Active Protocol: Document 10/02/22 14:39 [facility] (Rec: 10/02/22 16:41 [facility] [id number]) Physical Therapy Assessment Goals 5 Wire Annealer Goal (LTG) Pt will gait train at least 1650 feet in 6 minutes without AD and no LOB or dragging finger on the wall for steadying assist by 08/31/21. 07/03/21: Pt gait trains 1654 feet in 6 minutes with occ left index finger dragging along wall to assist with balance with anti-clockwise gait. 06/02/21: Pt gait trains 1541 feet in 6 minutes, walking anti-clockwise. Twice, she rubs left hand on corner when turning to the left in the hallway. She has increased arms out and right arm swing and left LE does not move as well motor-viera compared to the right and requires effort to clear foot each time. Pt is wearing short wellingtons and this may cause exaggeration of lifting foot, requiring more effort which shows as such on the left. 03/29/21: Pt gait trains 1531 feet in 6 minutes, which is 3 feet further than when last tested in October 202008/30-1431ft 11/28-1481ft 02/20/22-1523ft touched wall 1x & mild instability throughout 05/07-1530ft w/less notable instability- only 2x slight uneven movement of trunk 07/16-occ touching of wall 1522ft 10/02-1500ft (likely dec some d/ t change in set up so required pt to turn around more often) ; no touching wall LTG Duration 12/22 4 Snf Goal (LTG) Pt will be able to do all ROM of neck WNL w/o inc pain or feeling of nausea or dizziness 10/02-still limited LTG Duration 12/24 3 Short Term Goal (STG) Pt will perform progressive HEP with I including postural, flexibility, balance, LE strengthening, breathing, and VOR exercises to decrease symptoms and improve balance by 08/31/21. 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 She is doing exercises 1-2x/wk. 08/30-pt walking and doing exercises at home plan to update and progress program 11/28-advancing based on cont deficits STG Duration achieved and progressing as able Wire Annealer Goal (LTG) Pt will have at least 4+/5 all LE MMT 02/20-abd, IR still limited but overall much improved 05/17-slowly improved 07/16-no major change 10/02-abd only one not met LTG Duration 12/24 2 Snf Goal (LTG) adjusted goal: to Pt will report ETIENNE no greater than 10/08 10/02-pt reports no recent change w/ETIENNE LTG Duration 12/21 1 Impairment balance Short Term Goal (STG) Pt will be able to do SLS B 5 sec 10/02-achieved L but limited R still STG Duration 11/12/22 Wire Annealer Goal (LTG) Pt will perform WNLs on FGA to decrease fall risk and improve balance by 08/31/21. 07/03/21: FGA score is slightly improved with score 18/30 and pt reporting gait with head turns up and down and walking with eyes closed being the most symptomatic. Tandem gait is still not very possible. Turning at the end of the hallway required her to reach out to catch her balance. 08/30- 11/28- improved 02/20--today was a bad day and pt scored same, but typically would do better on mult of the task. 05/07- 07/16- LTG Duration achieved to Assessment Summary Assessment Pt did have instances of dizziness after completing balance testing and required small rest standign or sitting after doing some activities taht requried her to turn around or look up/down or close eyes. She did well on performance of test though and is showing improved balance. If pt does not turn around slowly, she does lose her balance and require grabbing outside source. Physical Therapy Plan Frequency and Duration Frequency of Treatment 1x/wk Duration of treatment (weeks) 12 Plan of Care Start Date 10/02/22 Plan of Care End Date 12/25/22 Therapeutic Interventions Therapeutic Interventions Balance Training,Canalithic Repositioning,Coordination Training,Gait Training,Home Exercise Program,Joint Mobilizations,Manual Therapy, Neuromuscular Re-education, Patient/Caregiver Education, Self-Care/Home Management, Sensory Integration,Soft Tissue Mobilization,Taping, Therapeutic Activities, Therapeutic Exercises, Vestibular Rehabilitation Modalities Cold Pack/Ice Massage,Electric Stimulation,Hot Packs, Ultrasound Next Visit Focus/Plan Next Note Type Treatment Note Next Visit Plan cont tow ork on leg and neck mobility & core stabiltiy; progress towards indep HEP Plan of Care Dates Plan of Care Start Date 10/02/22 Plan of Care End Date 12/25/22 Electronically Signed by: Tanya Dhaliwal, PT 10/02/22 1571 If you are in agreement with this Plan of Care, please return a signed and dated copy. I have reviewed this Plan of Care and certify that the skilled therapy services above are required to meet the patient?s needs. Physician Signature Date Printed Name and Credentials Clinical Instructor Signature Printed Name and Credentials
--- NOTE | 2022-10-09 18:23 | PT.OTN ---
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 (Rec: 10/09/22 18:23 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 Pt had fall and concussion then as passed out. In PMH, pt writes back pain, superficial blood clot right LE, ulcers. Current complaints include: dizziness when active (walking and movements of neck), decreased processing words, headaches managed by medications, trouble opening right side of jaw post-op, neck pain and stiffness. Pt denies falls since surgery. Pt is wearing an ice hat. Pt reports pain right side of head, left jaw and left thigh. ETIENNE pain gets up to 5/10 with medication. Her neck pain is 4 /10. Left leg pain gets up to 7/10. She reports left leg pain as deep and shooting. Pt reports pain with walking on left leg. Pt reports that her left leg feels weak. The Cymbalta helps with nerve pain . Pt reports that her right eye brown does not yet move after surgery and the right side of her head is swollen. Mother states that pt still does not have any appetite. Treatment Goals Patient/Caregiver Goals Decrease pain, increase balance and leg strength. PT-OP-C Subjective Start: 08/22/20 07:37 Freq: Status: Active Protocol: Document 10/09/22 14:37 [facility] (Rec: 10/09/22 18:23 [facility] [id number]) OP-PT Subjective Patient Comments Patient Comments Pt reports wind made ETIENNE worse. Notes she has been having a lot of back and L leg pain PT-OP-D Balance Start: 08/22/20 07:37 Freq: Status: Active Protocol: Document 10/02/22 14:39 [facility] (Rec: 10/02/22 16:41 [facility] [id number]) Balance Tests Single Limb Standing Single Limb- Right 3 sec Single Limb- Left 6 sec PT-OP-E Functional Tests Start: 08/30/21 14:38 Freq: Status: Active Protocol: Document 10/02/22 14:39 [facility] (Rec: 10/02/22 16:41 [facility] [id number]) Functional Tests 6 Minute Walk Test Distance 1500ft Device Used none Comments no LOB Functional Gait Assessment Score 23 PT-OP-G Mobility & Gait Start: 08/22/20 07:37 Freq: Status: Active Protocol: Document 08/23/20 12:13 MB (Rec: 08/23/20 14:14 MB [id number]) OP Gait Assessment Gait Gait Assistance Required: Independent Distance (Feet) 50 Able to Maintain Weight Bearing Status Yes During Gait Assistive Devices Assistive Device None Orthotic/Prosthetic Devices or Brace: No Gait Deviations General Gait Pattern Decreased Stride Length Factors Limiting Gait Function Factors Limiting Gait Function Decreased Strength,Pain,Poor Balance Comments Gait Comments Pt favors the left leg, looks down at the floor, presents with hesitancy with gait PT-OP-H Neuro Start: 08/22/20 07:37 Freq: Status: Active Protocol: Document 08/23/20 12:13 MB (Rec: 08/23/20 14:14 MB [id number]) Sensation Evaluation Comments Summary Comments Pt reports numbness right temporal area and eye brow Coordination Evaluation Upper Extremity Tests Right Finger to Nose Test Normal Performance Pronation/Supination Test Normal Performance Left Finger to Nose Test Normal Performance Pronation/Supination Test Minimal Impairment Comments Coordination Comments Right toe tapping over opposite foot normal x5 reps, rapid and accurate. Slow with left toe tapping over right foot and inaccurate, given for exercise for home: 10 reps every hour when sitting Vital Signs Pulse 1 Pulse at Rest (bpm) 77 Pulse Assessment Method Cuff Blood Pressure Sitting Blood Pressure (90/60-120/80 mmHg) 132/90 H Blood Pressure Source Automatic Cuff,Right Upper Extremity Comments Vital Signs Comments Doctor note for BP written under precautions, pt is in recommended range today PT-OP-J Posture/Palpation/Skin Start: 08/22/20 07:37 Freq: Status: Active Protocol: Document 07/16/22 17:17 [facility] (Rec: 07/16/22 17:17 [facility] [id number]) Posture Evaluation [facility] Postural Classification System Vertebral Compression Test 3 Lumbar Protective Mechanism Left AP 1 Lumbar Protective Mechanism Right AP 2 Lumbar Protective Mechanism Left PA 2 Lumbar Protective Mechanism Right PA 1 PT-OP-K Range of Motion Start: 08/22/20 07:37 Freq: Status: Active Protocol: Document 07/16/22 17:17 [facility] (Rec: 07/16/22 17:20 [facility] [id number]) Cervical Spine Range of Motion Cervical Spine Active Degrees Flexion 56 Extension 48 Rotation Left 62 Rotation Right 71 Lateral Flexion Left 45 Lateral Flexion Right 50 Comments mild nausea w/flex, nausea & pain in neck (pinch), pinching R w/R SB; dizzy w/L rot PT-OP-M Strength Start: 08/22/20 07:37 Freq: Status: Active Protocol: Document 10/02/22 14:39 [facility] (Rec: 10/02/22 16:41 [facility] [id number]) Hip Strength Hip Manual Muscle Testing Left Flexion (L2) 4+ Good+ Extension (S1) 4+ Good+ Abduction 4 Good Adduction 5 Normal External Rotation 5 Normal Internal Rotation 4+ Good+ Right Flexion (L2) 5 Normal Extension (S1) 5 Normal Abduction 5 Normal Adduction 5 Normal External Rotation 5 Normal Internal Rotation 5 Normal Knee Strength Knee Manual Muscle Testing Left Flexion (S2) 5 Normal Extension (L3) 5 Normal Comments Pt sitting Right Flexion (S2) 5 Normal Extension (L3) 5 Normal Comments Pt sitting Ankle/Foot Strength Ankle and Foot Manual Muscle Testing Left Dorsiflexion (L4) 5 Normal Plantarflexion (S1) 5 Normal Comments 20 heel raises Right Dorsiflexion (L4) 5 Normal Plantarflexion (S1) 5 Normal Comments 20 heel raises PT-OP-O Vestibular Start: 08/22/20 07:37 Freq: Status: Active Protocol: Document 08/23/20 12:13 MB (Rec: 08/23/20 14:14 MB [id number]) Vestibular Assessment Visual Testing Smooth Pursuits Horizontal Normal Smooth Pursuits Vertical Normal Gaze Evoked Nystagmus With Fixation Negative Convergence Test R impaired Spontaneous Nystagmus Negative Comments Vestibular Comments Left pupil with decreased reactivity to pen light but very minimal PT-OP-Q Treatments Start: 08/22/20 07:37 Freq: Status: Active Protocol: Document 10/09/22 14:37 [facility] (Rec: 10/09/22 18:23 [facility] [id number]) Therapeutic Exercises Supine Exercises bridge Supine Exercise Name 1. w/traction to LEs to faciliate 2. progrssed to march Side bilateral Reps/Minutes 10 min Comments 3. w/PT pertubations side to side Other Exercises Kneeling Other Exercise Name 1/2 kneel: 1. chop up 2. chop down Side bilateral Equipment Used orange band Reps/Minutes 10 ea Comments max cues for posture Therapeutic Activity Therapeutic Activity posture Comments 1. standing posture working on alignemnt of trunk & scap 2. seated posture w/alignment and trunk and scap 3. added PT rhythmic stabilization in mult directions w/1 &2 and in kneeling Manual Therapy Treatment Soft Tissue Mobilization hip Body Location L psoas proximally and distally & pirifromis & adductor Mobilization Type Rolling,Sustained Pressure Joint Mobilizations hip Joint L abd FM PT-OP-R Modalities Start: 08/22/20 07:37 Freq: Status: Active Protocol: Document 09/10/22 13:00 [facility] (Rec: 09/10/22 14:23 [facility] [id number]) Hot Pack/Cold Pack Treatment Cold Pack Location LS Patient Position Hooklying Treatment Duration (minutes) 10 PT-OP-T Assessment and Plan Start: 08/22/20 07:37 Freq: Status: Active Protocol: Document 10/09/22 14:37 [facility] (Rec: 10/09/22 18:23 [facility] [id number]) Physical Therapy Assessment Goals 5 Disaster Recovery Manager Goal (LTG) Pt will gait train at least 1650 feet in 6 minutes without AD and no LOB or dragging finger on the wall for steadying assist by 08/31/21. 07/03/21: Pt gait trains 1654 feet in 6 minutes with occ left index finger dragging along wall to assist with balance with anti-clockwise gait. 06/02/21: Pt gait trains 1541 feet in 6 minutes, walking anti-clockwise. Twice, she rubs left hand on corner when turning to the left in the hallway. She has increased arms out and right arm swing and left LE does not move as well motor-viera compared to the right and requires effort to clear foot each time. Pt is wearing short wellingtons and this may cause exaggeration of lifting foot, requiring more effort which shows as such on the left. 03/29/21: Pt gait trains 1531 feet in 6 minutes, which is 3 feet further than when last tested in October 202008/30-1431ft 11/28-1481ft 02/20/22-1523ft touched wall 1x & mild instability throughout 05/07-1530ft w/less notable instability- only 2x slight uneven movement of trunk 07/16-occ touching of wall 1522ft 10/02-1500ft (likely dec some d/ t change in set up so required pt to turn around more often) ; no touching wall LTG Duration 12/22 4 Disaster Recovery Manager Goal (LTG) Pt will be able to do all ROM of neck WNL w/o inc pain or feeling of nausea or dizziness 10/02-still limited LTG Duration 12/24 3 Short Term Goal (STG) Pt will perform progressive HEP with I including postural, flexibility, balance, LE strengthening, breathing, and VOR exercises to decrease symptoms and improve balance by 08/31/21. 07/03/21: Pt is performing band exercises for legs, back hemmer lockstitch self-massage, breathing, walking the dog, pelvic realignment exercises and balance exercises in the hallway. She is doing exercises 1-2x/wk. 08/30-pt walking and doing exercises at home plan to update and progress program 11/28-advancing based on cont deficits STG Duration achieved and progressing as able Intermediate Goal (LTG) Pt will have at least 4+/5 all LE MMT 02/20-abd, IR still limited but overall much improved 05/17-slowly improved 07/16-no major change 10/02-abd only one not met LTG Duration 12/24 2 Disaster Recovery Manager Goal (LTG) adjusted goal: to Pt will report ETIENNE no greater than 10/08 10/02-pt reports no recent change w/ETIENNE LTG Duration 12/21 1 Impairment balance Short Term Goal (STG) Pt will be able to do SLS B 5 sec 10/02-achieved L but limited R still STG Duration 11/12/22 Disaster Recovery Manager Goal (LTG) Pt will perform WNLs on FGA to decrease fall risk and improve balance by 08/31/21. 07/03/21: FGA score is slightly improved with score and pt reporting gait with head turns up and down and walking with eyes closed being the most symptomatic. Tandem gait is still not very possible. Turning at the end of the hallway required her to reach out to catch her balance. 08/30- 11/28- improved 02/20--today was a bad day and pt scored same, but typically would do better on mult of the task. 05/07- 07/16- LTG Duration achieved to Assessment Summary Assessment Pt was challenged by kneeling and standing maintaining posture w/core exercises. Improved w/session & working on rhythmic initiation. Physical Therapy Plan Frequency and Duration Frequency of Treatment 1x/wk Duration of treatment (weeks) 12 Plan of Care Start Date 10/02/22 Plan of Care End Date 12/25/22 Next Visit Focus/Plan Next Note Type Treatment Note Next Visit Plan cont tow ork on leg and neck mobility & core stabiltiy; progress towards indep HEP
--- NOTE | 2022-10-23 18:24 | PT.OTN ---
Current Diagnoses Moyamoya disease (10/23/22) Headache, unspecified (10/23/22) Weakness (10/23/22) Physical Therapy Treatment Note PT-OP-A Visit Information Start: 08/22/20 07:37 Freq: Status: Active Protocol: Document 10/23/22 13:47 [facility] (Rec: 10/23/22 18:23 [facility] [id number]) Out-Patient Physical Therapy Visit Information Visit Information Visit Type Treatment Note Visit Start Time 13:47 Visit Stop Time 14:30 Total Visit Minutes 43 Visit Number 05/24 2023 Number of SHOEMAKING FINISHER Visits 0 PT-OP-B Current Condition Start: 08/22/20 07:37 Freq: Status: Active Protocol: Document 08/23/20 12:13 MB (Rec: 08/23/20 13:04 MB [id number]) Current Condition History of Current Condition Onset Date Surgery 07/27/20 Current Complaints Dizziness, light-headedness, ETIENNE and left leg pain and imbalance History of Current Condition 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 Pt had fall and concussion then as passed out. In PMH, pt writes back pain, superficial blood clot right LE, ulcers. Current complaints include: dizziness when active (walking and movements of neck), decreased processing words, headaches managed by medications, trouble opening right side of jaw post-op, neck pain and stiffness. Pt denies falls since surgery. Pt is wearing an ice hat. Pt reports pain right side of head, left jaw and left thigh. ETIENNE pain gets up to 5/10 with medication. Her neck pain is 4 /10. Left leg pain gets up to 7/10. She reports left leg pain as deep and shooting. Pt reports pain with walking on left leg. Pt reports that her left leg feels weak. The Cymbalta helps with nerve pain . Pt reports that her right eye brown does not yet move after surgery and the right side of her head is swollen. Mother states that pt still does not have any appetite. Treatment Goals Patient/Caregiver Goals Decrease pain, increase balance and leg strength. PT-OP-C Subjective Start: 08/22/20 07:37 Freq: Status: Active Protocol: Document 10/23/22 13:47 [facility] (Rec: 10/23/22 18:23 [facility] [id number]) OP-PT Subjective Patient Comments Patient Comments Pt reports she feel slike she is the same Patient Reported Progress Same PT-OP-D Balance Start: 08/22/20 07:37 Freq: Status: Active Protocol: Document 10/02/22 14:39 [facility] (Rec: 10/02/22 16:41 [facility] [id number]) Balance Tests Single Limb Standing Single Limb- Right 3 sec Single Limb- Left 6 sec PT-OP-E Functional Tests Start: 08/30/21 14:38 Freq: Status: Active Protocol: Document 10/02/22 14:39 [facility] (Rec: 10/02/22 16:41 [facility] [id number]) Functional Tests 6 Minute Walk Test Distance 1500ft Device Used none Comments no LOB Functional Gait Assessment Score 23 PT-OP-G Mobility & Gait Start: 08/22/20 07:37 Freq: Status: Active Protocol: Document 08/23/20 12:13 MB (Rec: 08/23/20 14:14 MB [id number]) OP Gait Assessment Gait Gait Assistance Required: Independent Distance (Feet) 50 Able to Maintain Weight Bearing Status Yes During Gait Assistive Devices Assistive Device None Orthotic/Prosthetic Devices or Brace: No Gait Deviations General Gait Pattern Decreased Stride Length Factors Limiting Gait Function Factors Limiting Gait Function Decreased Strength,Pain,Poor Balance Comments Gait Comments Pt favors the left leg, looks down at the floor, presents with hesitancy with gait PT-OP-H Neuro Start: 08/22/20 07:37 Freq: Status: Active Protocol: Document 08/23/20 12:13 MB (Rec: 08/23/20 14:14 MB [id number]) Sensation Evaluation Comments Summary Comments Pt reports numbness right temporal area and eye brow Coordination Evaluation Upper Extremity Tests Right Finger to Nose Test Normal Performance Pronation/Supination Test Normal Performance Left Finger to Nose Test Normal Performance Pronation/Supination Test Minimal Impairment Comments Coordination Comments Right toe tapping over opposite foot normal x5 reps, rapid and accurate. Slow with left toe tapping over right foot and inaccurate, given for exercise for home: 10 reps every hour when sitting Vital Signs Pulse 1 Pulse at Rest (bpm) 77 Pulse Assessment Method Cuff Blood Pressure Sitting Blood Pressure (90/60-120/80 mmHg) 132/90 H Blood Pressure Source Automatic Cuff,Right Upper Extremity Comments Vital Signs Comments Doctor note for BP written under precautions, pt is in recommended range today PT-OP-J Posture/Palpation/Skin Start: 08/22/20 07:37 Freq: Status: Active Protocol: Document 07/16/22 17:17 [facility] (Rec: 07/16/22 17:17 [facility] [id number]) Posture Evaluation [facility] Postural Classification System Vertebral Compression Test 3 Lumbar Protective Mechanism Left AP 1 Lumbar Protective Mechanism Right AP 2 Lumbar Protective Mechanism Left PA 2 Lumbar Protective Mechanism Right PA 1 PT-OP-K Range of Motion Start: 08/22/20 07:37 Freq: Status: Active Protocol: Document 07/16/22 17:17 [facility] (Rec: 07/16/22 17:20 [facility] [id number]) Cervical Spine Range of Motion Cervical Spine Active Degrees Flexion 56 Extension 48 Rotation Left 62 Rotation Right 71 Lateral Flexion Left 45 Lateral Flexion Right 50 Comments mild nausea w/flex, nausea & pain in neck (pinch), pinching R w/R SB; dizzy w/L rot PT-OP-M Strength Start: 08/22/20 07:37 Freq: Status: Active Protocol: Document 10/02/22 14:39 [facility] (Rec: 10/02/22 16:41 [facility] [id number]) Hip Strength Hip Manual Muscle Testing Left Flexion (L2) 4+ Good+ Extension (S1) 4+ Good+ Abduction 4 Good Adduction 5 Normal External Rotation 5 Normal Internal Rotation 4+ Good+ Right Flexion (L2) 5 Normal Extension (S1) 5 Normal Abduction 5 Normal Adduction 5 Normal External Rotation 5 Normal Internal Rotation 5 Normal Knee Strength Knee Manual Muscle Testing Left Flexion (S2) 5 Normal Extension (L3) 5 Normal Comments Pt sitting Right Flexion (S2) 5 Normal Extension (L3) 5 Normal Comments Pt sitting Ankle/Foot Strength Ankle and Foot Manual Muscle Testing Left Dorsiflexion (L4) 5 Normal Plantarflexion (S1) 5 Normal Comments 20 heel raises Right Dorsiflexion (L4) 5 Normal Plantarflexion (S1) 5 Normal Comments 20 heel raises PT-OP-O Vestibular Start: 08/22/20 07:37 Freq: Status: Active Protocol: Document 08/23/20 12:13 MB (Rec: 08/23/20 14:14 MB [id number]) Vestibular Assessment Visual Testing Smooth Pursuits Horizontal Normal Smooth Pursuits Vertical Normal Gaze Evoked Nystagmus With Fixation Negative Convergence Test R impaired Spontaneous Nystagmus Negative Comments Vestibular Comments Left pupil with decreased reactivity to pen light but very minimal PT-OP-Q Treatments Start: 08/22/20 07:37 Freq: Status: Active Protocol: Document 10/23/22 13:47 [facility] (Rec: 10/23/22 18:23 [facility] [id number]) Manual Therapy Treatment Soft Tissue Mobilization cervical Body Location R UT & LS & ligamentum nuchae w/chin tuck Joint Mobilizations thoracic Comments T1-3 PA FM and transverse R FM ribs Comments R 1-3 caudal FM general caudal rib mobs w/post elevation FM B w/neuro re edu via manual facilitaiton after . PT-OP-R Modalities Start: 08/22/20 07:37 Freq: Status: Active Protocol: Document 09/10/22 13:00 [facility] (Rec: 09/10/22 14:23 [facility] [id number]) Hot Pack/Cold Pack Treatment Cold Pack Location LS Patient Position Hooklying Treatment Duration (minutes) 10 PT-OP-T Assessment and Plan Start: 08/22/20 07:37 Freq: Status: Active Protocol: Document 10/23/22 13:47 [facility] (Rec: 10/23/22 18:23 [facility] [id number]) Physical Therapy Assessment Goals 5 Supervisor Loading Goal (LTG) Pt will gait train at least 1650 feet in 6 minutes without AD and no LOB or dragging finger on the wall for steadying assist by 08/31/21. 07/03/21: Pt gait trains 1654 feet in 6 minutes with occ left index finger dragging along wall to assist with balance with anti-clockwise gait. 06/02/21: Pt gait trains 1541 feet in 6 minutes, walking anti-clockwise. Twice, she rubs left hand on corner when turning to the left in the hallway. She has increased arms out and right arm swing and left LE does not move as well motor-viera compared to the right and requires effort to clear foot each time. Pt is wearing short wellingtons and this may cause exaggeration of lifting foot, requiring more effort which shows as such on the left. 03/29/21: Pt gait trains 1531 feet in 6 minutes, which is 3 feet further than when last tested in October 202008/30-143ft 11/28-1481ft 02/20/22-1523ft touched wall 1x & mild instability throughout 05/07-1530ft w/less notable instability- only 2x slight uneven movement of trunk 07/16-occ touching of wall 1522ft 10/02-1500ft (likely dec some d/ t change in set up so required pt to turn around more often) ; no touching wall LTG Duration 12/22 4 Supervisor Loading Goal (LTG) Pt will be able to do all ROM of neck WNL w/o inc pain or feeling of nausea or dizziness 10/02-still limited LTG Duration 12/24 3 Short Term Goal (STG) Pt will perform progressive HEP with I including postural, flexibility, balance, LE strengthening, breathing, and VOR exercises to decrease symptoms and improve balance by 08/31/21. 07/03/21: Pt is performing band exercises for legs, back coil winder self-massage, breathing, walking the dog, pelvic realignment exercises and balance exercises in the hallway. She is doing exercises 1-2x/wk. 08/30-pt walking and doing exercises at home plan to update and progress program 11/28-advancing based on cont deficits STG Duration achieved and progressing as able Supervisor Loading Goal (LTG) Pt will have at least 4+/5 all LE MMT 02/20-abd, IR still limited but overall much improved 05/17-slowly improved 07/16-no major change 10/02-abd only one not met LTG Duration 12/24 2 Supervisor Loading Goal (LTG) adjusted goal: to Pt will report ETIENNE no greater than 4/10 10/02-pt reports no recent change w/ETIENNE LTG Duration 12/21 1 Impairment balance Short Term Goal (STG) Pt will be able to do SLS B 5 sec 10/02-achieved L but limited R still STG Duration 11/12/22 Supervisor Loading Goal (LTG) Pt will perform WNLs on FGA to decrease fall risk and improve balance by 08/31/21. 07/03/21: FGA score is slightly improved with score 18/30 and pt reporting gait with head turns up and down and walking with eyes closed being the most symptomatic. Tandem gait is still not very possible. Turning at the end of the hallway required her to reach out to catch her balance. 08/30- 11/28- improved 02/20--today was a bad day and pt scored same, but typically would do better on mult of the task. 05/07- 07/16- LTG Duration achieved to Assessment Summary Assessment pt had improved B thoracic rotation and cervical rotation w/less pain after manual treatment today. She was very limtied w/thoracic rotation at start of session. Physical Therapy Plan Frequency and Duration Frequency of Treatment 1x/wk Duration of treatment (weeks) 12 Plan of Care Start Date 10/02/22 Plan of Care End Date 12/25/22 Next Visit Focus/Plan Next Note Type Treatment Note Next Visit Plan cont tow ork on leg and neck mobility & core stabiltiy; progress towards indep HEP
--- NOTE | 2022-10-30 17:39 | PT.OTN ---
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) Headache, unspecified (10/30/22) Weakness (10/30/22) Physical Therapy Treatment Note PT-OP-A Visit Information Start: 08/22/20 07:37 Freq: Status: Active Protocol: Document 10/30/22 14:15 [facility] (Rec: 10/30/22 17:39 [facility] [id number]) Out-Patient Physical Therapy Visit Information Visit Information Visit Type Treatment Note Visit Start Time 14:16 Visit Stop Time 15:00 Total Visit Minutes 44 Visit Number 06/23 2023 Number of FASHION DIRECTOR Visits 0 PT-OP-B Current Condition Start: 08/22/20 07:37 Freq: Status: Active Protocol: Document 08/23/20 12:13 MB (Rec: 08/23/20 13:04 MB [id number]) Current Condition History of Current Condition Onset Date Surgery 07/27/20 Current Complaints Dizziness, light-headedness, ETIENNE and left leg pain and imbalance History of Current Condition 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 Pt had fall and concussion then as passed out. In PMH, pt writes back pain, superficial blood clot right LE, ulcers. Current complaints include: dizziness when active (walking and movements of neck), decreased processing words, headaches managed by medications, trouble opening right side of jaw post-op, neck pain and stiffness. Pt denies falls since surgery. Pt is wearing an ice hat. Pt reports pain right side of head, left jaw and left thigh. ETIENNE pain gets up to 5/10 with medication. Her neck pain is 4 /10. Left leg pain gets up to 7/10. She reports left leg pain as deep and shooting. Pt reports pain with walking on left leg. Pt reports that her left leg feels weak. The Cymbalta helps with nerve pain . Pt reports that her right eye brown does not yet move after surgery and the right side of her head is swollen. Mother states that pt still does not have any appetite. Treatment Goals Patient/Caregiver Goals Decrease pain, increase balance and leg strength. PT-OP-C Subjective Start: 08/22/20 07:37 Freq: Status: Active Protocol: Document 10/30/22 14:15 [facility] (Rec: 10/30/22 17:39 [facility] [id number]) OP-PT Subjective Patient Comments Patient Comments Pt reports she still is noting dec balance at times. PT-OP-D Balance Start: 08/22/20 07:37 Freq: Status: Active Protocol: Document 10/02/22 14:39 [facility] (Rec: 10/02/22 16:41 [facility] [id number]) Balance Tests Single Limb Standing Single Limb- Right 3 sec Single Limb- Left 6 sec PT-OP-E Functional Tests Start: 08/30/21 14:38 Freq: Status: Active Protocol: Document 10/02/22 14:39 [facility] (Rec: 10/02/22 16:41 [facility] [id number]) Functional Tests 6 Minute Walk Test Distance 1500ft Device Used none Comments no LOB Functional Gait Assessment Score 23 PT-OP-G Mobility & Gait Start: 08/22/20 07:37 Freq: Status: Active Protocol: Document 08/23/20 12:13 MB (Rec: 08/23/20 14:14 MB [id number]) OP Gait Assessment Gait Gait Assistance Required: Independent Distance (Feet) 50 Able to Maintain Weight Bearing Status Yes During Gait Assistive Devices Assistive Device None Orthotic/Prosthetic Devices or Brace: No Gait Deviations General Gait Pattern Decreased Stride Length Factors Limiting Gait Function Factors Limiting Gait Function Decreased Strength,Pain,Poor Balance Comments Gait Comments Pt favors the left leg, looks down at the floor, presents with hesitancy with gait PT-OP-H Neuro Start: 08/22/20 07:37 Freq: Status: Active Protocol: Document 08/23/20 12:13 MB (Rec: 08/23/20 14:14 MB [id number]) Sensation Evaluation Comments Summary Comments Pt reports numbness right temporal area and eye brow Coordination Evaluation Upper Extremity Tests Right Finger to Nose Test Normal Performance Pronation/Supination Test Normal Performance Left Finger to Nose Test Normal Performance Pronation/Supination Test Minimal Impairment Comments Coordination Comments Right toe tapping over opposite foot normal x5 reps, rapid and accurate. Slow with left toe tapping over right foot and inaccurate, given for exercise for home: 10 reps every hour when sitting Vital Signs Pulse 1 Pulse at Rest (bpm) 77 Pulse Assessment Method Cuff Blood Pressure Sitting Blood Pressure (90/60-120/80 mmHg) 132/90 H Blood Pressure Source Automatic Cuff,Right Upper Extremity Comments Vital Signs Comments Doctor note for BP written under precautions, pt is in recommended range today PT-OP-J Posture/Palpation/Skin Start: 08/22/20 07:37 Freq: Status: Active Protocol: Document 07/16/22 17:17 [facility] (Rec: 07/16/22 17:17 [facility] [id number]) Posture Evaluation [facility] Postural Classification System Vertebral Compression Test 3 Lumbar Protective Mechanism Left AP 1 Lumbar Protective Mechanism Right AP 2 Lumbar Protective Mechanism Left PA 2 Lumbar Protective Mechanism Right PA 1 PT-OP-K Range of Motion Start: 08/22/20 07:37 Freq: Status: Active Protocol: Document 07/16/22 17:17 [facility] (Rec: 07/16/22 17:20 [facility] [id number]) Cervical Spine Range of Motion Cervical Spine Active Degrees Flexion 56 Extension 48 Rotation Left 62 Rotation Right 71 Lateral Flexion Left 45 Lateral Flexion Right 50 Comments mild nausea w/flex, nausea & pain in neck (pinch), pinching R w/R SB; dizzy w/L rot PT-OP-M Strength Start: 08/22/20 07:37 Freq: Status: Active Protocol: Document 10/02/22 14:39 [facility] (Rec: 10/02/22 16:41 [facility] [id number]) Hip Strength Hip Manual Muscle Testing Left Flexion (L2) 4+ Good+ Extension (S1) 4+ Good+ Abduction 4 Good Adduction 5 Normal External Rotation 5 Normal Internal Rotation 4+ Good+ Right Flexion (L2) 5 Normal Extension (S1) 5 Normal Abduction 5 Normal Adduction 5 Normal External Rotation 5 Normal Internal Rotation 5 Normal Knee Strength Knee Manual Muscle Testing Left Flexion (S2) 5 Normal Extension (L3) 5 Normal Comments Pt sitting Right Flexion (S2) 5 Normal Extension (L3) 5 Normal Comments Pt sitting Ankle/Foot Strength Ankle and Foot Manual Muscle Testing Left Dorsiflexion (L4) 5 Normal Plantarflexion (S1) 5 Normal Comments 20 heel raises Right Dorsiflexion (L4) 5 Normal Plantarflexion (S1) 5 Normal Comments 20 heel raises PT-OP-O Vestibular Start: 08/22/20 07:37 Freq: Status: Active Protocol: Document 08/23/20 12:13 MB (Rec: 08/23/20 14:14 MB [id number]) Vestibular Assessment Visual Testing Smooth Pursuits Horizontal Normal Smooth Pursuits Vertical Normal Gaze Evoked Nystagmus With Fixation Negative Convergence Test R impaired Spontaneous Nystagmus Negative Comments Vestibular Comments Left pupil with decreased reactivity to pen light but very minimal PT-OP-Q Treatments Start: 08/22/20 07:37 Freq: Status: Active Protocol: Document 10/30/22 14:15 [facility] (Rec: 10/30/22 17:39 [facility] [id number]) Manual Therapy Treatment Soft Tissue Mobilization cervical Body Location R SCM & SCalenes cranial fascia Body Location R>L Mobilization Type Myofascial Release Intensity/Depth Superficial Body Position Hooklying Manual Techniques tapping Comments tapping technique for glabellar reflex x5 min Self-Care/Home Management Treatment Education Other Education working on chin tuck first w/ cervical flex-no nausea w/this -able to do repeated 2. discussed finding out if insurance covers DO and acupuncture care w/local providers to help w/pain, ETIENNE etc. 3. discussed posture and helped pt find neutral alignment in sitting 4. review of cervical axial elongation w/slef resistance at C2 supine 13 min PT-OP-R Modalities Start: 08/22/20 07:37 Freq: Status: Active Protocol: Document 09/10/22 13:00 [facility] (Rec: 09/10/22 14:23 [facility] [id number]) Hot Pack/Cold Pack Treatment Cold Pack Location LS Patient Position Hooklying Treatment Duration (minutes) 10 PT-OP-T Assessment and Plan Start: 08/22/20 07:37 Freq: Status: Active Protocol: Document 10/30/22 14:15 [facility] (Rec: 10/30/22 17:39 [facility] [id number]) Physical Therapy Assessment Goals 5 Longterm Goal (LTG) Pt will gait train at least 1650 feet in 6 minutes without AD and no LOB or dragging finger on the wall for steadying assist by 08/31/21. 07/03/21: Pt gait trains 1654 feet in 6 minutes with occ left index finger dragging along wall to assist with balance with anti-clockwise gait. 06/02/21: Pt gait trains 1541 feet in 6 minutes, walking anti-clockwise. Twice, she rubs left hand on corner when turning to the left in the hallway. She has increased arms out and right arm swing and left LE does not move as well motor-viera compared to the right and requires effort to clear foot each time. Pt is wearing short wellingtons and this may cause exaggeration of lifting foot, requiring more effort which shows as such on the left. 03/29/21: Pt gait trains 1531 feet in 6 minutes, which is 3 feet further than when last tested in October 202008/30-1431ft 11/28-1481ft 02/20/22-1523ft touched wall 1x & mild instability throughout 05/07-1530ft w/less notable instability- only 2x slight uneven movement of trunk 07/16-occ touching of wall 1522ft 10/02-1500ft (likely dec some d/ t change in set up so required pt to turn around more often) ; no touching wall LTG Duration 12/22 Longterm Goal (LTG) Pt will be able to do all ROM of neck WNL w/o inc pain or feeling of nausea or dizziness 10/02-still limited LTG Duration 12/24 3 Short Term Goal (STG) Pt will perform progressive HEP with I including postural, flexibility, balance, LE strengthening, breathing, and VOR exercises to decrease symptoms and improve balance by 08/31/21. 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 She is doing exercises 1-2x/wk. 08/30-pt walking and doing exercises at home plan to update and progress program 11/28-advancing based on cont deficits STG Duration achieved and progressing as able Longterm Goal (LTG) Pt will have at least 4+/5 all LE MMT 02/20-abd, IR still limited but overall much improved 05/17-slowly improved 07/16-no major change 10/02-abd only one not met LTG Duration 12/24 2 Self Propelled Mining Machine Operator Goal (LTG) adjusted goal: to Pt will report ETIENNE no greater than 10/08 10/02-pt reports no recent change w/ETIENNE LTG Duration 12/21 1 Impairment balance Short Term Goal (STG) Pt will be able to do SLS B 5 sec 10/02-achieved L but limited R still STG Duration 11/12/22 Longterm Goal (LTG) Pt will perform WNLs on FGA to decrease fall risk and improve balance by 08/31/21. 07/03/21: FGA score is slightly improved with score 18/30 and pt reporting gait with head turns up and down and walking with eyes closed being the most symptomatic. Tandem gait is still not very possible. Turning at the end of the hallway required her to reach out to catch her balance. 08/30- 11/28- improved 02/20--today was a bad day and pt scored same, but typically would do better on mult of the task. 05/07- 07/16- LTG Duration achieved to Assessment Summary Assessment Pt was able to flex mult times today w/o nausea or dizziness if did chin tuck first. She does still show dec upper cervical stabiltiy and was encouraged to work on this at home. Improved pain after manul. Improved NBOS balance from 10 sec to 21 sec w/ ability to assume w/o outside support after glabellar reflex work Physical Therapy Plan Frequency and Duration Frequency of Treatment 1x/wk Duration of treatment (weeks) 12 Plan of Care Start Date 10/02/22 Plan of Care End Date 12/25/22 Therapeutic Interventions Therapeutic Interventions Balance Training,Canalithic Repositioning,Coordination Training,Gait Training,Home Exercise Program,Joint Mobilizations,Manual Therapy, Neuromuscular Re-education, Patient/Caregiver Education, Self-Care/Home Management, Sensory Integration,Soft Tissue Mobilization,Taping, Therapeutic Activities, Therapeutic Exercises, Vestibular Rehabilitation Modalities Cold Pack/Ice Massage,Electric Stimulation,Hot Packs, Ultrasound Next Visit Focus/Plan Next Note Type Treatment Note Next Visit Plan cont tow ork on leg and neck mobility & core stabiltiy; progress towards indep HEP
--- NOTE | 2022-11-06 18:03 | PT.OTN ---
Current Diagnoses Moyamoya disease (11/06/22) Headache, unspecified (11/06/22) Weakness (11/06/22) Physical Therapy Treatment Note PT-OP-A Visit Information Start: 08/22/20 07:37 Freq: Status: Active Protocol: Document 11/06/22 14:05 [facility] (Rec: 11/06/22 18:03 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 Pt had fall and concussion then as passed out. In PMH, pt writes back pain, superficial blood clot right LE, ulcers. Current complaints include: dizziness when active (walking and movements of neck), decreased processing words, headaches managed by medications, trouble opening right side of jaw post-op, neck pain and stiffness. Pt denies falls since surgery. Pt is wearing an ice hat. Pt reports pain right side of head, left jaw and left thigh. ETIENNE pain gets up to 5/10 with medication. Her neck pain is 4 /10. Left leg pain gets up to 7/10. She reports left leg pain as deep and shooting. Pt reports pain with walking on left leg. Pt reports that her left leg feels weak. The Cymbalta helps with nerve pain . Pt reports that her right eye brown does not yet move after surgery and the right side of her head is swollen. Mother states that pt still does not have any appetite. Treatment Goals Patient/Caregiver Goals Decrease pain, increase balance and leg strength. PT-OP-C Subjective Start: 08/22/20 07:37 Freq: Status: Active Protocol: Document 11/06/22 14:05 [facility] (Rec: 11/06/22 18:03 [facility] [id number]) OP-PT Subjective Patient Comments Patient Comments Pt reports she has been doing some of her stretching exercises PT-OP-D Balance Start: 08/22/20 07:37 Freq: Status: Active Protocol: Document 10/02/22 14:39 [facility] (Rec: 10/02/22 16:41 [facility] [id number]) Balance Tests Single Limb Standing Single Limb- Right 3 sec Single Limb- Left 6 sec PT-OP-E Functional Tests Start: 08/30/21 14:38 Freq: Status: Active Protocol: Document 10/02/22 14:39 [facility] (Rec: 10/02/22 16:41 [facility] [id number]) Functional Tests 6 Minute Walk Test Distance 1500ft Device Used none Comments no LOB Functional Gait Assessment Score 23 PT-OP-G Mobility & Gait Start: 08/22/20 07:37 Freq: Status: Active Protocol: Document 08/23/20 12:13 MB (Rec: 08/23/20 14:14 MB [id number]) OP Gait Assessment Gait Gait Assistance Required: Independent Distance (Feet) 50 Able to Maintain Weight Bearing Status Yes During Gait Assistive Devices Assistive Device None Orthotic/Prosthetic Devices or Brace: No Gait Deviations General Gait Pattern Decreased Stride Length Factors Limiting Gait Function Factors Limiting Gait Function Decreased Strength,Pain,Poor Balance Comments Gait Comments Pt favors the left leg, looks down at the floor, presents with hesitancy with gait PT-OP-H Neuro Start: 08/22/20 07:37 Freq: Status: Active Protocol: Document 08/23/20 12:13 MB (Rec: 08/23/20 14:14 MB [id number]) Sensation Evaluation Comments Summary Comments Pt reports numbness right temporal area and eye brow Coordination Evaluation Upper Extremity Tests Right Finger to Nose Test Normal Performance Pronation/Supination Test Normal Performance Left Finger to Nose Test Normal Performance Pronation/Supination Test Minimal Impairment Comments Coordination Comments Right toe tapping over opposite foot normal x5 reps, rapid and accurate. Slow with left toe tapping over right foot and inaccurate, given for exercise for home: 10 reps every hour when sitting Vital Signs Pulse 1 Pulse at Rest (bpm) 77 Pulse Assessment Method Cuff Blood Pressure Sitting Blood Pressure (90/60-120/80 mmHg) 132/90 H Blood Pressure Source Automatic Cuff,Right Upper Extremity Comments Vital Signs Comments Doctor note for BP written under precautions, pt is in recommended range today PT-OP-J Posture/Palpation/Skin Start: 08/22/20 07:37 Freq: Status: Active Protocol: Document 07/16/22 17:17 [facility] (Rec: 07/16/22 17:17 [facility] [id number]) Posture Evaluation [facility] Postural Classification System Vertebral Compression Test 3 Lumbar Protective Mechanism Left AP 1 Lumbar Protective Mechanism Right AP 2 Lumbar Protective Mechanism Left PA 2 Lumbar Protective Mechanism Right PA 1 PT-OP-K Range of Motion Start: 08/22/20 07:37 Freq: Status: Active Protocol: Document 07/16/22 17:17 [facility] (Rec: 07/16/22 17:20 [facility] [id number]) Cervical Spine Range of Motion Cervical Spine Active Degrees Flexion 56 Extension 48 Rotation Left 62 Rotation Right 71 Lateral Flexion Left 45 Lateral Flexion Right 50 Comments mild nausea w/flex, nausea & pain in neck (pinch), pinching R w/R SB; dizzy w/L rot PT-OP-M Strength Start: 08/22/20 07:37 Freq: Status: Active Protocol: Document 10/02/22 14:39 [facility] (Rec: 10/02/22 16:41 [facility] [id number]) Hip Strength Hip Manual Muscle Testing Left Flexion (L2) 4+ Good+ Extension (S1) 4+ Good+ Abduction 4 Good Adduction 5 Normal External Rotation 5 Normal Internal Rotation 4+ Good+ Right Flexion (L2) 5 Normal Extension (S1) 5 Normal Abduction 5 Normal Adduction 5 Normal External Rotation 5 Normal Internal Rotation 5 Normal Knee Strength Knee Manual Muscle Testing Left Flexion (S2) 5 Normal Extension (L3) 5 Normal Comments Pt sitting Right Flexion (S2) 5 Normal Extension (L3) 5 Normal Comments Pt sitting Ankle/Foot Strength Ankle and Foot Manual Muscle Testing Left Dorsiflexion (L4) 5 Normal Plantarflexion (S1) 5 Normal Comments 20 heel raises Right Dorsiflexion (L4) 5 Normal Plantarflexion (S1) 5 Normal Comments 20 heel raises PT-OP-O Vestibular Start: 08/22/20 07:37 Freq: Status: Active Protocol: Document 08/23/20 12:13 MB (Rec: 08/23/20 14:14 MB [id number]) Vestibular Assessment Visual Testing Smooth Pursuits Horizontal Normal Smooth Pursuits Vertical Normal Gaze Evoked Nystagmus With Fixation Negative Convergence Test R impaired Spontaneous Nystagmus Negative Comments Vestibular Comments Left pupil with decreased reactivity to pen light but very minimal PT-OP-Q Treatments Start: 08/22/20 07:37 Freq: Status: Active Protocol: Document 11/06/22 14:05 [facility] (Rec: 11/06/22 18:03 [facility] [id number]) Therapeutic Exercises Supine Exercises core Supine Exercise Name DL press Side bilateral Reps/Minutes 30 sec bridge Supine Exercise Name w/alt march Side bilateral Reps/Minutes 5 Sidelying Exercises Open book with pect stretch and rib breathing Sidelying Exercise Name open book Side bilateral Reps/Minutes 9 Sitting Exercises chin tuck Sitting Exercise Name axial elongation Equipment Used peach band Reps/Minutes 5 sec x6 Comments cues for form Standing Exercises ER Standing Exercise Name ER w/pronation Side bilateral Equipment Used orange band Reps/Minutes 10 Manual Therapy Treatment Soft Tissue Mobilization cranial fascia Body Location R>L Mobilization Type Myofascial Release Intensity/Depth Superficial Body Position Hooklying Comments w/LTR, L sciatic n glide, B UE abd Joint Mobilizations cranial Comments R coronal PA & saggital R suture w/LTR & L sciatic n glide Self-Care/Home Management Treatment Education Other Education discussion re: meeting w/ vestibular therapist and that it may inc symptoms at first but could improve dizziness; review o fpostural improtance and why chin tuck important x8 min PT-OP-R Modalities Start: 08/22/20 07:37 Freq: Status: Active Protocol: Document 09/10/22 13:00 [facility] (Rec: 09/10/22 14:23 [facility] [id number]) Hot Pack/Cold Pack Treatment Cold Pack Location LS Patient Position Hooklying Treatment Duration (minutes) 10 PT-OP-T Assessment and Plan Start: 08/22/20 07:37 Freq: Status: Active Protocol: Document 11/06/22 14:05 [facility] (Rec: 11/06/22 18:03 [facility] [id number]) Physical Therapy Assessment Goals 5 Liquor Tester Goal (LTG) Pt will gait train at least 1650 feet in 6 minutes without AD and no LOB or dragging finger on the wall for steadying assist by 08/31/21. 07/03/21: Pt gait trains 1654 feet in 6 minutes with occ left index finger dragging along wall to assist with balance with anti-clockwise gait. 06/02/21: Pt gait trains 1541 feet in 6 minutes, walking anti-clockwise. Twice, she rubs left hand on corner when turning to the left in the hallway. She has increased arms out and right arm swing and left LE does not move as well motor-viera compared to the right and requires effort to clear foot each time. Pt is wearing short wellingtons and this may cause exaggeration of lifting foot, requiring more effort which shows as such on the left. 03/29/21: Pt gait trains 1531 feet in 6 minutes, which is 3 feet further than when last tested in October 202008/30-1431ft 11/28-1481ft 02/20/22-1523ft touched wall 1x & mild instability throughout 05/07-1530ft w/less notable instability- only 2x slight uneven movement of trunk 07/16-occ touching of wall 1522ft 10/02-1500ft (likely dec some d/ t change in set up so required pt to turn around more often) ; no touching wall LTG Duration 12/22 4 Liquor Tester Goal (LTG) Pt will be able to do all ROM of neck WNL w/o inc pain or feeling of nausea or dizziness 10/02-still limited LTG Duration 12/24 3 Short Term Goal (STG) Pt will perform progressive HEP with I including postural, flexibility, balance, LE strengthening, breathing, and VOR exercises to decrease symptoms and improve balance by 08/31/21. 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 She is doing exercises 1-2x/wk. 08/30-pt walking and doing exercises at home plan to update and progress program 11/28-advancing based on cont deficits STG Duration achieved and progressing as able Intermediate Goal (LTG) Pt will have at least 4+/5 all LE MMT 02/20-abd, IR still limited but overall much improved 05/17-slowly improved 07/16-no major change 10/02-abd only one not met LTG Duration 12/24 2 Intermediate Goal (LTG) adjusted goal: to Pt will report ETIENNE no greater than 10/08 10/02-pt reports no recent change w/ETIENNE LTG Duration 12/21 1 Impairment balance Short Term Goal (STG) Pt will be able to do SLS B 5 sec 10/02-achieved L but limited R still STG Duration 11/12/22 Intermediate Goal (LTG) Pt will perform WNLs on FGA to decrease fall risk and improve balance by 08/31/21. 07/03/21: FGA score is slightly improved with score 18/30 and pt reporting gait with head turns up and down and walking with eyes closed being the most symptomatic. Tandem gait is still not very possible. Turning at the end of the hallway required her to reach out to catch her balance. 08/30- 11/28- improved 02/20--today was a bad day and pt scored same, but typically would do better on mult of the task. 05/07- 07/16- LTG Duration achieved to Assessment Summary Assessment Pt did well with exercises today and was able to follow exercises w/o c/o inc pain and was given handout to help her cont at home. Pt reports release feeling w/manual. Physical Therapy Plan Frequency and Duration Frequency of Treatment 1x/wk Duration of treatment (weeks) 12 Plan of Care Start Date 10/02/22 Plan of Care End Date 12/25/22 Next Visit Focus/Plan Next Note Type Treatment Note Next Visit Plan cont to work on leg and neck mobility & core stabiltiy; progress towards indep HEP
--- NOTE | 2022-11-20 14:46 | PT.OTN ---
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) Headache, unspecified (11/20/22) Weakness (11/20/22) Physical Therapy Treatment Note PT-OP-A Visit Information Start: 08/22/20 07:37 Freq: Status: Active Protocol: Document 11/20/22 14:00 DCW (Rec: 11/20/22 14:45 DCW [id number]) Out-Patient Physical Therapy Visit Information Visit Information Visit Type Treatment Note Visit Start Time 14:00 Visit Stop Time 14:35 Total Visit Minutes 35 Visit Number [id number] Number of [employer] Visits 0 PT-OP-B Current Condition Start: 08/22/20 07:37 Freq: Status: Active Protocol: Document 08/23/20 12:13 MB (Rec: 08/23/20 13:04 MB [id number]) Current Condition History of Current Condition Onset Date Surgery 07/27/20 Current Complaints Dizziness, light-headedness, ETIENNE and left leg pain and imbalance History of Current Condition 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 Pt had fall and concussion then as passed out. In PMH, pt writes back pain, superficial blood clot right LE, ulcers. Current complaints include: dizziness when active (walking and movements of neck), decreased processing words, headaches managed by medications, trouble opening right side of jaw post-op, neck pain and stiffness. Pt denies falls since surgery. Pt is wearing an ice hat. Pt reports pain right side of head, left jaw and left thigh. ETIENNE pain gets up to 5/10 with medication. Her neck pain is 4 /10. Left leg pain gets up to 7/10. She reports left leg pain as deep and shooting. Pt reports pain with walking on left leg. Pt reports that her left leg feels weak. The Cymbalta helps with nerve pain . Pt reports that her right eye brown does not yet move after surgery and the right side of her head is swollen. Mother states that pt still does not have any appetite. Treatment Goals Patient/Caregiver Goals Decrease pain, increase balance and leg strength. PT-OP-C Subjective Start: 08/22/20 07:37 Freq: Status: Active Protocol: Document 11/20/22 14:00 DCW (Rec: 11/20/22 14:45 DCW [id number]) OP-PT Subjective Patient Comments Patient Comments Pt's subjective symptoms are described more like the world tipping than actual spinning, notes it occurs with neck movements or fast head movement/position changes. Has been present since her CVA, but waxes and wanes, sometimes it's better, sometimes it's really bad. PT-OP-D Balance Start: 08/22/20 07:37 Freq: Status: Active Protocol: Document 10/02/22 14:39 [facility] (Rec: 10/02/22 16:41 [facility] [id number]) Balance Tests Single Limb Standing Single Limb- Right 3 sec Single Limb- Left 6 sec PT-OP-E Functional Tests Start: 08/30/21 14:38 Freq: Status: Active Protocol: Document 10/02/22 14:39 [facility] (Rec: 10/02/22 16:41 [facility] [id number]) Functional Tests 6 Minute Walk Test Distance 1500ft Device Used none Comments no LOB Functional Gait Assessment Score 23 PT-OP-G Mobility & Gait Start: 08/22/20 07:37 Freq: Status: Active Protocol: Document 08/23/20 12:13 MB (Rec: 08/23/20 14:14 MB [id number]) OP Gait Assessment Gait Gait Assistance Required: Independent Distance (Feet) 50 Able to Maintain Weight Bearing Status Yes During Gait Assistive Devices Assistive Device None Orthotic/Prosthetic Devices or Brace: No Gait Deviations General Gait Pattern Decreased Stride Length Factors Limiting Gait Function Factors Limiting Gait Function Decreased Strength,Pain,Poor Balance Comments Gait Comments Pt favors the left leg, looks down at the floor, presents with hesitancy with gait PT-OP-H Neuro Start: 08/22/20 07:37 Freq: Status: Active Protocol: Document 08/23/20 12:13 MB (Rec: 08/23/20 14:14 MB [id number]) Sensation Evaluation Comments Summary Comments Pt reports numbness right temporal area and eye brow Coordination Evaluation Upper Extremity Tests Right Finger to Nose Test Normal Performance Pronation/Supination Test Normal Performance Left Finger to Nose Test Normal Performance Pronation/Supination Test Minimal Impairment Comments Coordination Comments Right toe tapping over opposite foot normal x5 reps, rapid and accurate. Slow with left toe tapping over right foot and inaccurate, given for exercise for home: 10 reps every hour when sitting Vital Signs Pulse 1 Pulse at Rest (bpm) 77 Pulse Assessment Method Cuff Blood Pressure Sitting Blood Pressure (90/60-120/80 mmHg) 132/90 H Blood Pressure Source Automatic Cuff,Right Upper Extremity Comments Vital Signs Comments Doctor note for BP written under precautions, pt is in recommended range today PT-OP-J Posture/Palpation/Skin Start: 08/22/20 07:37 Freq: Status: Active Protocol: Document 07/16/22 17:17 [facility] (Rec: 07/16/22 17:17 [facility] [id number]) Posture Evaluation [facility] Postural Classification System Vertebral Compression Test 3 Lumbar Protective Mechanism Left AP 1 Lumbar Protective Mechanism Right AP 2 Lumbar Protective Mechanism Left PA 2 Lumbar Protective Mechanism Right PA 1 PT-OP-K Range of Motion Start: 08/22/20 07:37 Freq: Status: Active Protocol: Document 07/16/22 17:17 [facility] (Rec: 07/16/22 17:20 [facility] [id number]) Cervical Spine Range of Motion Cervical Spine Active Degrees Flexion 56 Extension 48 Rotation Left 62 Rotation Right 71 Lateral Flexion Left 45 Lateral Flexion Right 50 Comments mild nausea w/flex, nausea & pain in neck (pinch), pinching R w/R SB; dizzy w/L rot PT-OP-M Strength Start: 08/22/20 07:37 Freq: Status: Active Protocol: Document 10/02/22 14:39 [facility] (Rec: 10/02/22 16:41 [facility] [id number]) Hip Strength Hip Manual Muscle Testing Left Flexion (L2) 4+ Good+ Extension (S1) 4+ Good+ Abduction 4 Good Adduction 5 Normal External Rotation 5 Normal Internal Rotation 4+ Good+ Right Flexion (L2) 5 Normal Extension (S1) 5 Normal Abduction 5 Normal Adduction 5 Normal External Rotation 5 Normal Internal Rotation 5 Normal Knee Strength Knee Manual Muscle Testing Left Flexion (S2) 5 Normal Extension (L3) 5 Normal Comments Pt sitting Right Flexion (S2) 5 Normal Extension (L3) 5 Normal Comments Pt sitting Ankle/Foot Strength Ankle and Foot Manual Muscle Testing Left Dorsiflexion (L4) 5 Normal Plantarflexion (S1) 5 Normal Comments 20 heel raises Right Dorsiflexion (L4) 5 Normal Plantarflexion (S1) 5 Normal Comments 20 heel raises PT-OP-O Vestibular Start: 08/22/20 07:37 Freq: Status: Active Protocol: Document 11/20/22 14:00 DCW (Rec: 11/20/22 14:45 DCW [id number]) Vestibular Assessment Visual Testing Smooth Pursuits Horizontal WNL Smooth Pursuits Vertical WNL Saccades Horizontal WNL Heave Test Negative Thrust Head Negative Convergence Test 10 cm DVA (Line Degradation) 3 Vestibulo-Ocular Reflex (VOR1) Nausea PT-OP-Q Treatments Start: 08/22/20 07:37 Freq: Status: Active Protocol: Document 11/20/22 14:00 DCW (Rec: 11/20/22 14:45 DCW [id number]) Neuro Re-Education Treatment Vestibular Rehabilitation Corrective Saccades Details Eyes, then head to target Distance From Target Arm's length Speed as tolerated Position seated X2 Viewing Details Head and target move in opposite directions Distance From Target Arm's length Speed as tolerated Position seated X1 Viewing Details Head turns with static target Distance From Target Arm's length Speed as tolerated Position seated VOR Retraining Details Head and target move in same direction Distance From Target Arm's length Speed as tolerated Position seated PT-OP-R Modalities Start: 08/22/20 07:37 Freq: Status: Active Protocol: Document 09/10/22 13:00 [facility] (Rec: 09/10/22 14:23 [facility] [id number]) Hot Pack/Cold Pack Treatment Cold Pack Location LS Patient Position Hooklying Treatment Duration (minutes) 10 PT-OP-T Assessment and Plan Start: 08/22/20 07:37 Freq: Status: Active Protocol: Document 11/20/22 14:00 DCW (Rec: 11/20/22 14:45 DCW [id number]) Physical Therapy Assessment Goals 5 Longterm Goal (LTG) Pt will gait train at least 1650 feet in 6 minutes without AD and no LOB or dragging finger on the wall for steadying assist by 08/31/21. 07/03/21: Pt gait trains 1654 feet in 6 minutes with occ left index finger dragging along wall to assist with balance with anti-clockwise gait. 06/02/21: Pt gait trains 1541 feet in 6 minutes, walking anti-clockwise. Twice, she rubs left hand on corner when turning to the left in the hallway. She has increased arms out and right arm swing and left LE does not move as well motor-viera compared to the right and requires effort to clear foot each time. Pt is wearing short wellingtons and this may cause exaggeration of lifting foot, requiring more effort which shows as such on the left. 03/29/21: Pt gait trains 1531 feet in 6 minutes, which is 3 feet further than when last tested in October 202008/30-1431ft 11/28-1481ft 02/20/22-1523ft touched wall 1x & mild instability throughout 05/07-1530ft w/less notable instability- only 2x slight uneven movement of trunk 07/16-occ touching of wall 1522ft 10/02-1500ft (likely dec some d/ t change in set up so required pt to turn around more often) ; no touching wall LTG Duration 12/22 4 [employer] Goal (LTG) Pt will be able to do all ROM of neck WNL w/o inc pain or feeling of nausea or dizziness 10/02-still limited LTG Duration 12/24 3 Short Term Goal (STG) Pt will perform progressive HEP with I including postural, flexibility, balance, LE strengthening, breathing, and VOR exercises to decrease symptoms and improve balance by 08/31/21. 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 She is doing exercises 1-2x/wk. 08/30-pt walking and doing exercises at home plan to update and progress program 11/28-advancing based on cont deficits STG Duration achieved and progressing as able Longterm Goal (LTG) Pt will have at least 4+/5 all LE MMT 02/20-abd, IR still limited but overall much improved 05/17-slowly improved 07/16-no major change 10/02-abd only one not met LTG Duration 12/24 2 Longterm Goal (LTG) adjusted goal: to Pt will report ETIENNE no greater than 10/08 10/02-pt reports no recent change w/ETIENNE LTG Duration 12/21 1 Impairment balance Short Term Goal (STG) Pt will be able to do SLS B 5 sec 10/02-achieved L but limited R still STG Duration 11/12/22 [employer] Goal (LTG) Pt will perform WNLs on FGA to decrease fall risk and improve balance by 08/31/21. 07/03/21: FGA score is slightly improved with score 18/30 and pt reporting gait with head turns up and down and walking with eyes closed being the most symptomatic. Tandem gait is still not very possible. Turning at the end of the hallway required her to reach out to catch her balance. 08/30- 11/28- improved 02/20--today was a bad day and pt scored same, but typically would do better on mult of the task. 05/07- 07/16- LTG Duration achieved to Assessment Summary Assessment DVA testing shows three line degradation, convergence testing doubles at 10 cm, both of which are slightly worse than average for pt's age range. Thrust and heave testing negative. Symptoms largely explainable by prior CVA, which can sometimes be improved with vestibular rehabilitation exercises, and other times is largely unresponsive. Pt had very strong, very immediate negative reaction with wooziness and nausea with VOR , struggled even more with X1 and X2 viewing. Recommended to continue to perform as HEP as tolerated, keeping nausea/ dizziness at a 1 or 2 on a 5 point scale. Physical Therapy Plan Frequency and Duration Frequency of Treatment 1x/wk Duration of treatment (weeks) 12 Plan of Care Start Date 10/02/22 Plan of Care End Date 12/25/22 Therapeutic Interventions Therapeutic Interventions Balance Training,Canalithic Repositioning,Coordination Training,Gait Training,Home Exercise Program,Joint Mobilizations,Manual Therapy, Neuromuscular Re-education, Patient/Caregiver Education, Self-Care/Home Management, Sensory Integration,Soft Tissue Mobilization,Taping, Therapeutic Activities, Therapeutic Exercises, Vestibular Rehabilitation Modalities Cold Pack/Ice Massage,Electric Stimulation,Hot Packs, Ultrasound Next Visit Focus/Plan Next Note Type Treatment Note Next Visit Plan cont tow ork on leg and neck mobility & core stabiltiy; progress towards indep HEP
--- NOTE | 2022-11-27 15:20 | PT.OTN ---
Current Diagnoses Moyamoya disease (11/27/22) Headache, unspecified (11/27/22) Weakness (11/27/22) Physical Therapy Treatment Note PT-OP-A Visit Information Start: 08/22/20 07:37 Freq: Status: Active Protocol: Document 11/27/22 14:24 [facility] (Rec: 11/27/22 15:20 [facility] [id number]) Out-Patient Physical Therapy Visit Information Visit Information Visit Type Treatment Note Visit Start Time 14:22 Visit Stop Time 15:04 Total Visit Minutes 43 Visit Number 2022 Number of CONSULTING DATABASE ADMINISTRATOR Visits 0 PT-OP-B Current Condition Start: 08/22/20 07:37 Freq: Status: Active Protocol: Document 08/23/20 12:13 MB (Rec: 08/23/20 13:04 MB [id number]) Current Condition History of Current Condition Onset Date Surgery 07/27/20 Current Complaints Dizziness, light-headedness, ETIENNE and left leg pain and imbalance History of Current Condition 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 Pt had fall and concussion then as passed out. In PMH, pt writes back pain, superficial blood clot right LE, ulcers. Current complaints include: dizziness when active (walking and movements of neck), decreased processing words, headaches managed by medications, trouble opening right side of jaw post-op, neck pain and stiffness. Pt denies falls since surgery. Pt is wearing an ice hat. Pt reports pain right side of head, left jaw and left thigh. ETIENNE pain gets up to 5/10 with medication. Her neck pain is 4 /10. Left leg pain gets up to 7/10. She reports left leg pain as deep and shooting. Pt reports pain with walking on left leg. Pt reports that her left leg feels weak. The Cymbalta helps with nerve pain . Pt reports that her right eye brown does not yet move after surgery and the right side of her head is swollen. Mother states that pt still does not have any appetite. Treatment Goals Patient/Caregiver Goals Decrease pain, increase balance and leg strength. PT-OP-C Subjective Start: 08/22/20 07:37 Freq: Status: Active Protocol: Document 11/27/22 14:24 [facility] (Rec: 11/27/22 15:20 [facility] [id number]) OP-PT Subjective Patient Comments Patient Comments Pt reports the entire week she feel really nauseaus. She felt like her head and eyes weren't working together and had impaired depth perception. mom told her she looked like she was walking on a boat. Feels like abdelrahman had recovered about 2 days ago. This past week neck was hurting more than usual. Pt reports BP was lower than usual and in the range that nikhil her more lightheaded (systolic 115 and belwo for her) PT-OP-D Balance Start: 08/22/20 07:37 Freq: Status: Active Protocol: Document 10/02/22 14:39 [facility] (Rec: 10/02/22 16:41 [facility] [id number]) Balance Tests Single Limb Standing Single Limb- Right 3 sec Single Limb- Left 6 sec PT-OP-E Functional Tests Start: 08/30/21 14:38 Freq: Status: Active Protocol: Document 10/02/22 14:39 [facility] (Rec: 10/02/22 16:41 [facility] [id number]) Functional Tests 6 Minute Walk Test Distance 1500ft Device Used none Comments no LOB Functional Gait Assessment Score 23 PT-OP-G Mobility & Gait Start: 08/22/20 07:37 Freq: Status: Active Protocol: Document 08/23/20 12:13 MB (Rec: 08/23/20 14:14 MB [id number]) OP Gait Assessment Gait Gait Assistance Required: Independent Distance (Feet) 50 Able to Maintain Weight Bearing Status Yes During Gait Assistive Devices Assistive Device None Orthotic/Prosthetic Devices or Brace: No Gait Deviations General Gait Pattern Decreased Stride Length Factors Limiting Gait Function Factors Limiting Gait Function Decreased Strength,Pain,Poor Balance Comments Gait Comments Pt favors the left leg, looks down at the floor, presents with hesitancy with gait PT-OP-H Neuro Start: 08/22/20 07:37 Freq: Status: Active Protocol: Document 08/23/20 12:13 MB (Rec: 08/23/20 14:14 MB [id number]) Sensation Evaluation Comments Summary Comments Pt reports numbness right temporal area and eye brow Coordination Evaluation Upper Extremity Tests Right Finger to Nose Test Normal Performance Pronation/Supination Test Normal Performance Left Finger to Nose Test Normal Performance Pronation/Supination Test Minimal Impairment Comments Coordination Comments Right toe tapping over opposite foot normal x5 reps, rapid and accurate. Slow with left toe tapping over right foot and inaccurate, given for exercise for home: 10 reps every hour when sitting Vital Signs Pulse 1 Pulse at Rest (bpm) 77 Pulse Assessment Method Cuff Blood Pressure Sitting Blood Pressure (90/60-120/80 mmHg) 132/90 H Blood Pressure Source Automatic Cuff,Right Upper Extremity Comments Vital Signs Comments Doctor note for BP written under precautions, pt is in recommended range today PT-OP-J Posture/Palpation/Skin Start: 08/22/20 07:37 Freq: Status: Active Protocol: Document 07/16/22 17:17 [facility] (Rec: 07/16/22 17:17 [facility] [id number]) Posture Evaluation Mihir Postural Classification System Vertebral Compression Test 3 Lumbar Protective Mechanism Left AP 1 Lumbar Protective Mechanism Right AP 2 Lumbar Protective Mechanism Left PA 2 Lumbar Protective Mechanism Right PA 1 PT-OP-K Range of Motion Start: 08/22/20 07:37 Freq: Status: Active Protocol: Document 07/16/22 17:17 [facility] (Rec: 07/16/22 17:20 [facility] [id number]) Cervical Spine Range of Motion Cervical Spine Active Degrees Flexion 56 Extension 48 Rotation Left 62 Rotation Right 71 Lateral Flexion Left 45 Lateral Flexion Right 50 Comments mild nausea w/flex, nausea & pain in neck (pinch), pinching R w/R SB; dizzy w/L rot PT-OP-M Strength Start: 08/22/20 07:37 Freq: Status: Active Protocol: Document 10/02/22 14:39 [facility] (Rec: 10/02/22 16:41 [facility] [id number]) Hip Strength Hip Manual Muscle Testing Left Flexion (L2) 4+ Good+ Extension (S1) 4+ Good+ Abduction 4 Good Adduction 5 Normal External Rotation 5 Normal Internal Rotation 4+ Good+ Right Flexion (L2) 5 Normal Extension (S1) 5 Normal Abduction 5 Normal Adduction 5 Normal External Rotation 5 Normal Internal Rotation 5 Normal Knee Strength Knee Manual Muscle Testing Left Flexion (S2) 5 Normal Extension (L3) 5 Normal Comments Pt sitting Right Flexion (S2) 5 Normal Extension (L3) 5 Normal Comments Pt sitting Ankle/Foot Strength Ankle and Foot Manual Muscle Testing Left Dorsiflexion (L4) 5 Normal Plantarflexion (S1) 5 Normal Comments 20 heel raises Right Dorsiflexion (L4) 5 Normal Plantarflexion (S1) 5 Normal Comments 20 heel raises PT-OP-O Vestibular Start: 08/22/20 07:37 Freq: Status: Active Protocol: Document 11/20/22 14:00 [facility] (Rec: 11/20/22 14:45 [facility] [id number]) Vestibular Assessment Visual Testing Smooth Pursuits Horizontal WNL Smooth Pursuits Vertical WNL Saccades Horizontal WNL Heave Test Negative Thrust Head Negative Convergence Test 10 cm DVA (Line Degradation) 3 Vestibulo-Ocular Reflex (VOR1) Nausea PT-OP-Q Treatments Start: 08/22/20 07:37 Freq: Status: Active Protocol: Document 11/27/22 14:24 [facility] (Rec: 11/27/22 15:20 [facility] [id number]) Therapeutic Exercises Sitting Exercises chin tuck Sitting Exercise Name axial elongation Reps/Minutes 5 sec x6 Comments cues for form Manual Therapy Treatment Soft Tissue Mobilization cervical Body Location R SCM & SCalenes and paraspinals & ligamentum nuchae Comments w/chin tuck cranial fascia Body Location R>L Mobilization Type Myofascial Release Intensity/Depth Superficial Body Position Hooklying Comments w/chin tucks Joint Mobilizations sternum Comments manubrium AP FM ribs Comments AP 1st and 2nd L FM cervical Comments AP R C5 and 7 FM Self-Care/Home Management Treatment Education Other Education 2min:review that it may take time tfor vestib rehab to help and the plan to work w/vestib therapist to find a reasonable rehb plan PT-OP-R Modalities Start: 08/22/20 07:37 Freq: Status: Active Protocol: Document 09/10/22 13:00 [facility] (Rec: 09/10/22 14:23 [facility] [id number]) Hot Pack/Cold Pack Treatment Cold Pack Location LS Patient Position Hooklying Treatment Duration (minutes) 10 PT-OP-T Assessment and Plan Start: 08/22/20 07:37 Freq: Status: Active Protocol: Document 11/27/22 14:24 [facility] (Rec: 11/27/22 15:20 [facility] [id number]) Physical Therapy Assessment Goals 5 Longterm Goal (LTG) Pt will gait train at least 1650 feet in 6 minutes without AD and no LOB or dragging finger on the wall for steadying assist by 08/31/21. 07/03/21: Pt gait trains 1654 feet in 6 minutes with occ left index finger dragging along wall to assist with balance with anti-clockwise gait. 06/02/21: Pt gait trains 1541 feet in 6 minutes, walking anti-clockwise. Twice, she rubs left hand on corner when turning to the left in the hallway. She has increased arms out and right arm swing and left LE does not move as well motor-viera compared to the right and requires effort to clear foot each time. Pt is wearing short wellingtons and this may cause exaggeration of lifting foot, requiring more effort which shows as such on the left. 03/29/21: Pt gait trains 1531 feet in 6 minutes, which is 3 feet further than when last tested in October 202008/30-1431ft 11/28-1481ft 02/20/22-1523ft touched wall 1x & mild instability throughout 05/07-1530ft w/less notable instability- only 2x slight uneven movement of trunk 07/16-occ touching of wall 1522ft 10/02-1500ft (likely dec some d/ t change in set up so required pt to turn around more often) ; no touching wall LTG Duration 12/22 4 Honing Machine Set Up Operator Goal (LTG) Pt will be able to do all ROM of neck WNL w/o inc pain or feeling of nausea or dizziness 10/02-still limited LTG Duration 12/24 3 Short Term Goal (STG) Pt will perform progressive HEP with I including postural, flexibility, balance, LE strengthening, breathing, and VOR exercises to decrease symptoms and improve balance by 08/31/21. 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 She is doing exercises 1-2x/wk. 08/30-pt walking and doing exercises at home plan to update and progress program 11/28-advancing based on cont deficits STG Duration achieved and progressing as able Longterm Goal (LTG) Pt will have at least 4+/5 all LE MMT 02/20-abd, IR still limited but overall much improved 05/17-slowly improved 07/16-no major change 10/02-abd only one not met LTG Duration 12/24 2 Longterm Goal (LTG) adjusted goal: to Pt will report ETIENNE no greater than 10/08 10/02-pt reports no recent change w/ETIENNE LTG Duration 12/21 1 Impairment balance Short Term Goal (STG) Pt will be able to do SLS B 5 sec 10/02-achieved L but limited R still STG Duration 11/12/22 Longterm Goal (LTG) Pt will perform WNLs on FGA to decrease fall risk and improve balance by 08/31/21. 07/03/21: FGA score is slightly improved with score and pt reporting gait with head turns up and down and walking with eyes closed being the most symptomatic. Tandem gait is still not very possible. Turning at the end of the hallway required her to reach out to catch her balance. 08/30- 11/28- improved 02/20--today was a bad day and pt scored same, but typically would do better on mult of the task. 05/07- 07/16- LTG Duration achieved to Assessment Summary Assessment Pt didn't have as much nausea w/head movemetns today as usual or dizzienss and was able to after manual flex neck w/o dizziness or nausea where as has nausea prior. Physical Therapy Plan Frequency and Duration Frequency of Treatment 1x/wk Duration of treatment (weeks) 12 Plan of Care Start Date 10/02/22 Plan of Care End Date 12/25/22 Next Visit Focus/Plan Next Note Type Treatment Note Next Visit Plan cont to work on leg and neck mobility & core stabiltiy; progress towards indep HEP
--- NOTE | 2022-12-11 15:25 | PT.OTN ---
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) Headache, unspecified (12/11/22) Weakness (12/11/22) Physical Therapy Treatment Note PT-OP-A Visit Information Start: 08/22/20 07:37 Freq: Status: Active Protocol: Document 12/11/22 14:45 [facility] (Rec: 12/11/22 15:25 [facility] [id number]) Out-Patient Physical Therapy Visit Information Visit Information Visit Type Treatment Note Visit Start Time 14:45 Visit Stop Time 15:20 Total Visit Minutes 35 Visit Number 2022 Number of EXERCISE EQUIPMENT SPECIALIST Visits 0 PT-OP-B Current Condition Start: 08/22/20 07:37 Freq: Status: Active Protocol: Document 08/23/20 12:13 MB (Rec: 08/23/20 13:04 MB [id number]) Current Condition History of Current Condition Onset Date Surgery 07/27/20 Current Complaints Dizziness, light-headedness, ETIENNE and left leg pain and imbalance History of Current Condition 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 Pt had fall and concussion then as passed out. In PMH, pt writes back pain, superficial blood clot right LE, ulcers. Current complaints include: dizziness when active (walking and movements of neck), decreased processing words, headaches managed by medications, trouble opening right side of jaw post-op, neck pain and stiffness. Pt denies falls since surgery. Pt is wearing an ice hat. Pt reports pain right side of head, left jaw and left thigh. ETIENNE pain gets up to 5/10 with medication. Her neck pain is 4 /10. Left leg pain gets up to 7/10. She reports left leg pain as deep and shooting. Pt reports pain with walking on left leg. Pt reports that her left leg feels weak. The Cymbalta helps with nerve pain . Pt reports that her right eye brown does not yet move after surgery and the right side of her head is swollen. Mother states that pt still does not have any appetite. Treatment Goals Patient/Caregiver Goals Decrease pain, increase balance and leg strength. PT-OP-C Subjective Start: 08/22/20 07:37 Freq: Status: Active Protocol: Document 12/11/22 14:45 [facility] (Rec: 12/11/22 15:25 [facility] [id number]) OP-PT Subjective Patient Comments Patient Comments Pt reports she has tried to do some of her vestibular exercises for a shorter amount of time, admits that some of them seem to bother her neck more. PT-OP-D Balance Start: 08/22/20 07:37 Freq: Status: Active Protocol: Document 10/02/22 14:39 [facility] (Rec: 10/02/22 16:41 [facility] [id number]) Balance Tests Single Limb Standing Single Limb- Right 3 sec Single Limb- Left 6 sec PT-OP-E Functional Tests Start: 08/30/21 14:38 Freq: Status: Active Protocol: Document 10/02/22 14:39 [facility] (Rec: 10/02/22 16:41 [facility] [id number]) Functional Tests 6 Minute Walk Test Distance 1500ft Device Used none Comments no LOB Functional Gait Assessment Score 23 PT-OP-G Mobility & Gait Start: 08/22/20 07:37 Freq: Status: Active Protocol: Document 08/23/20 12:13 MB (Rec: 08/23/20 14:14 MB [id number]) OP Gait Assessment Gait Gait Assistance Required: Independent Distance (Feet) 50 Able to Maintain Weight Bearing Status Yes During Gait Assistive Devices Assistive Device None Orthotic/Prosthetic Devices or Brace: No Gait Deviations General Gait Pattern Decreased Stride Length Factors Limiting Gait Function Factors Limiting Gait Function Decreased Strength,Pain,Poor Balance Comments Gait Comments Pt favors the left leg, looks down at the floor, presents with hesitancy with gait PT-OP-H Neuro Start: 08/22/20 07:37 Freq: Status: Active Protocol: Document 08/23/20 12:13 MB (Rec: 08/23/20 14:14 MB [id number]) Sensation Evaluation Comments Summary Comments Pt reports numbness right temporal area and eye brow Coordination Evaluation Upper Extremity Tests Right Finger to Nose Test Normal Performance Pronation/Supination Test Normal Performance Left Finger to Nose Test Normal Performance Pronation/Supination Test Minimal Impairment Comments Coordination Comments Right toe tapping over opposite foot normal x5 reps, rapid and accurate. Slow with left toe tapping over right foot and inaccurate, given for exercise for home: 10 reps every hour when sitting Vital Signs Pulse 1 Pulse at Rest (bpm) 77 Pulse Assessment Method Cuff Blood Pressure Sitting Blood Pressure (90/60-120/80 mmHg) 132/90 H Blood Pressure Source Automatic Cuff,Right Upper Extremity Comments Vital Signs Comments Doctor note for BP written under precautions, pt is in recommended range today PT-OP-J Posture/Palpation/Skin Start: 08/22/20 07:37 Freq: Status: Active Protocol: Document 07/16/22 17:17 [facility] (Rec: 07/16/22 17:17 [facility] [id number]) Posture Evaluation Mihir Postural Classification System Vertebral Compression Test 3 Lumbar Protective Mechanism Left AP 1 Lumbar Protective Mechanism Right AP 2 Lumbar Protective Mechanism Left PA 2 Lumbar Protective Mechanism Right PA 1 PT-OP-K Range of Motion Start: 08/22/20 07:37 Freq: Status: Active Protocol: Document 07/16/22 17:17 [facility] (Rec: 07/16/22 17:20 [facility] [id number]) Cervical Spine Range of Motion Cervical Spine Active Degrees Flexion 56 Extension 48 Rotation Left 62 Rotation Right 71 Lateral Flexion Left 45 Lateral Flexion Right 50 Comments mild nausea w/flex, nausea & pain in neck (pinch), pinching R w/R SB; dizzy w/L rot PT-OP-M Strength Start: 08/22/20 07:37 Freq: Status: Active Protocol: Document 10/02/22 14:39 [facility] (Rec: 10/02/22 16:41 [facility] [id number]) Hip Strength Hip Manual Muscle Testing Left Flexion (L2) 4+ Good+ Extension (S1) 4+ Good+ Abduction 4 Good Adduction 5 Normal External Rotation 5 Normal Internal Rotation 4+ Good+ Right Flexion (L2) 5 Normal Extension (S1) 5 Normal Abduction 5 Normal Adduction 5 Normal External Rotation 5 Normal Internal Rotation 5 Normal Knee Strength Knee Manual Muscle Testing Left Flexion (S2) 5 Normal Extension (L3) 5 Normal Comments Pt sitting Right Flexion (S2) 5 Normal Extension (L3) 5 Normal Comments Pt sitting Ankle/Foot Strength Ankle and Foot Manual Muscle Testing Left Dorsiflexion (L4) 5 Normal Plantarflexion (S1) 5 Normal Comments 20 heel raises Right Dorsiflexion (L4) 5 Normal Plantarflexion (S1) 5 Normal Comments 20 heel raises PT-OP-O Vestibular Start: 08/22/20 07:37 Freq: Status: Active Protocol: Document 11/20/22 14:00 [facility] (Rec: 11/20/22 14:45 [facility] [id number]) Vestibular Assessment Visual Testing Smooth Pursuits Horizontal WNL Smooth Pursuits Vertical WNL Saccades Horizontal WNL Heave Test Negative Thrust Head Negative Convergence Test 10 cm DVA (Line Degradation) 3 Vestibulo-Ocular Reflex (VOR1) Nausea PT-OP-Q Treatments Start: 08/22/20 07:37 Freq: Status: Active Protocol: Document 12/11/22 14:45 [facility] (Rec: 12/11/22 15:25 [facility] [id number]) Neuro Re-Education Treatment Vestibular Rehabilitation Laser Details VOR training Comments Cursive name writing with laser over floral board, head turns to metronome (horiz 50bpm, vert 50->70 bpm), maze [place] Board Details [place] Board Position Normal Stance Disco ball Details Disco ball Position seated Comments Pt only able to tolerate ~10 seconds before reporting dizziness and eye pain PT-OP-R Modalities Start: 08/22/20 07:37 Freq: Status: Active Protocol: Document 09/10/22 13:00 [facility] (Rec: 09/10/22 14:23 [facility] [id number]) Hot Pack/Cold Pack Treatment Cold Pack Location LS Patient Position Hooklying Treatment Duration (minutes) 10 PT-OP-T Assessment and Plan Start: 08/22/20 07:37 Freq: Status: Active Protocol: Document 12/11/22 14:45 [facility] (Rec: 12/11/22 15:25 [facility] [id number]) Physical Therapy Assessment Goals 5 Cone Runner Goal (LTG) Pt will gait train at least 1650 feet in 6 minutes without AD and no LOB or dragging finger on the wall for steadying assist by 08/31/21. 07/03/21: Pt gait trains 1654 feet in 6 minutes with occ left index finger dragging along wall to assist with balance with anti-clockwise gait. 06/02/21: Pt gait trains 1541 feet in 6 minutes, walking anti-clockwise. Twice, she rubs left hand on corner when turning to the left in the hallway. She has increased arms out and right arm swing and left LE does not move as well motor-viera compared to the right and requires effort to clear foot each time. Pt is wearing short wellingtons and this may cause exaggeration of lifting foot, requiring more effort which shows as such on the left. 03/29/21: Pt gait trains 1531 feet in 6 minutes, which is 3 feet further than when last tested in October 202008/30-1431ft 11/28-1481ft 02/20/22-1523ft touched wall 1x & mild instability throughout 05/07-1530ft w/less notable instability- only 2x slight uneven movement of trunk 07/16-occ touching of wall 1522ft 10/02-1500ft (likely dec some d/ t change in set up so required pt to turn around more often) ; no touching wall LTG Duration 12/22 4 Alf Goal (LTG) Pt will be able to do all ROM of neck WNL w/o inc pain or feeling of nausea or dizziness 10/02-still limited LTG Duration 12/24 3 Short Term Goal (STG) Pt will perform progressive HEP with I including postural, flexibility, balance, LE strengthening, breathing, and VOR exercises to decrease symptoms and improve balance by 08/31/21. 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 She is doing exercises 1-2x/wk. 08/30-pt walking and doing exercises at home plan to update and progress program 11/28-advancing based on cont deficits STG Duration achieved and progressing as able Cone Runner Goal (LTG) Pt will have at least 4+/5 all LE MMT 02/20-abd, IR still limited but overall much improved 05/17-slowly improved 07/16-no major change 10/02-abd only one not met LTG Duration 12/24 2 Alf Goal (LTG) adjusted goal: to Pt will report ETIENNE no greater than /10 10/02-pt reports no recent change w/ETIENNE LTG Duration 12/21 1 Impairment balance Short Term Goal (STG) Pt will be able to do SLS B 5 sec 10/02-achieved L but limited R still STG Duration 11/12/22 Cone Runner Goal (LTG) Pt will perform WNLs on FGA to decrease fall risk and improve balance by 08/31/21. 07/03/21: FGA score is slightly improved with score 18/30 and pt reporting gait with head turns up and down and walking with eyes closed being the most symptomatic. Tandem gait is still not very possible. Turning at the end of the hallway required her to reach out to catch her balance. 08/30- 11/28- improved 02/20--today was a bad day and pt scored same, but typically would do better on mult of the task. 05/07- 07/16- LTG Duration achieved to Assessment Summary Assessment Pt still unable to tolerate most vestibular challenges any longer than 15-30 seconds, quickly became dizzy, nauseated, or had complaints of eye pain. Recommended pt to continue vestibular HEP as tolerated, and touch base with vestibular PT ~1x/month to index editor changes to tolerance and adjust HEP recommendations accordingly. Due to increased symptoms secondary to increased vestibular load, pt may benefit from continued manual therapy, stretching, and strengthening exercises for stabilization. Physical Therapy Plan Frequency and Duration Frequency of Treatment 1x/wk Duration of treatment (weeks) 12 Plan of Care Start Date 12/11/22 Plan of Care End Date 03/04/23 Therapeutic Interventions Therapeutic Interventions Balance Training,Canalithic Repositioning,Coordination Training,Gait Training,Home Exercise Program,Joint Mobilizations,Manual Therapy, Neuromuscular Re-education, Patient/Caregiver Education, Self-Care/Home Management, Sensory Integration,Soft Tissue Mobilization,Taping, Therapeutic Activities, Therapeutic Exercises, Vestibular Rehabilitation Modalities Cold Pack/Ice Massage,Electric Stimulation,Hot Packs, Ultrasound Next Visit Focus/Plan Next Note Type Treatment Note Next Visit Plan cont to work on leg and neck mobility & core stabiltiy; progress towards indep HEP
--- NOTE | 2022-12-11 15:25 | PT.OPPOC ---
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) Headache, unspecified (12/11/22) Weakness (12/11/22) Visit Care Team Role Provider Type Christen Figueroa PA-C Attending Provider Non-Staff Primary Care Provider Referring Provider Specialty: Family Practice Address: [address] [place] [address], [address], [place], [address] Email: Plan Of Care PT-OP-T Assessment and Plan Start: 08/22/20 07:37 Freq: Status: Active Protocol: Document 12/11/22 14:45 DCW (Rec: 12/11/22 15:25 DCW [id number]) Physical Therapy Assessment Goals 5 Premium Representative Goal (LTG) Pt will gait train at least 1650 feet in 6 minutes without AD and no LOB or dragging finger on the wall for steadying assist by 08/31/21. 07/03/21: Pt gait trains 1654 feet in 6 minutes with occ left index finger dragging along wall to assist with balance with anti-clockwise gait. 06/02/21: Pt gait trains 1541 feet in 6 minutes, walking anti-clockwise. Twice, she rubs left hand on corner when turning to the left in the hallway. She has increased arms out and right arm swing and left LE does not move as well motor-viera compared to the right and requires effort to clear foot each time. Pt is wearing short wellingtons and this may cause exaggeration of lifting foot, requiring more effort which shows as such on the left. 03/29/21: Pt gait trains 1531 feet in 6 minutes, which is 3 feet further than when last tested in October 202008/30-1431ft 11/28-1481ft 02/20/22-1523ft touched wall 1x & mild instability throughout 05/07-1530ft w/less notable instability- only 2x slight uneven movement of trunk 07/16-occ touching of wall 1522ft 10/02-1500ft (likely dec some d/ t change in set up so required pt to turn around more often) ; no touching wall LTG Duration 12/22 4 Premium Representative Goal (LTG) Pt will be able to do all ROM of neck WNL w/o inc pain or feeling of nausea or dizziness 10/02-still limited LTG Duration 12/24 3 Short Term Goal (STG) Pt will perform progressive HEP with I including postural, flexibility, balance, LE strengthening, breathing, and VOR exercises to decrease symptoms and improve balance by 08/31/21. 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 She is doing exercises 1-2x/wk. 08/30-pt walking and doing exercises at home plan to update and progress program 11/28-advancing based on cont deficits STG Duration achieved and progressing as able Prison Goal (LTG) Pt will have at least 4+/5 all LE MMT 02/20-abd, IR still limited but overall much improved 05/17-slowly improved 07/16-no major change 10/02-abd only one not met LTG Duration 12/24 2 Premium Representative Goal (LTG) adjusted goal: to Pt will report ETIENNE no greater than 10 10/02-pt reports no recent change w/ETIENNE LTG Duration 12/21 1 Impairment balance Short Term Goal (STG) Pt will be able to do SLS B 5 sec 10/02-achieved L but limited R still STG Duration 11/12/22 Premium Representative Goal (LTG) Pt will perform WNLs on FGA to decrease fall risk and improve balance by 08/31/21. 07/03/21: FGA score is slightly improved with score 18/30 and pt reporting gait with head turns up and down and walking with eyes closed being the most symptomatic. Tandem gait is still not very possible. Turning at the end of the hallway required her to reach out to catch her balance. 08/30- 11/28- improved 02/20--today was a bad day and pt scored same, but typically would do better on mult of the task. 05/07- 07/16- LTG Duration achieved to Assessment Summary Assessment Pt still unable to tolerate most vestibular challenges any longer than 15-30 seconds, quickly became dizzy, nauseated, or had complaints of eye pain. Recommended pt to continue vestibular HEP as tolerated, and touch base with vestibular PT ~1x/month to mash preparatory operator changes to tolerance and adjust HEP recommendations accordingly. Due to increased symptoms secondary to increased vestibular load, pt may benefit from continued manual therapy, stretching, and strengthening exercises for stabilization. Physical Therapy Plan Frequency and Duration Frequency of Treatment 1x/wk Duration of treatment (weeks) 12 Plan of Care Start Date 12/11/22 Plan of Care End Date 03/04/23 Therapeutic Interventions Therapeutic Interventions Balance Training,Canalithic Repositioning,Coordination Training,Gait Training,Home Exercise Program,Joint Mobilizations,Manual Therapy, Neuromuscular Re-education, Patient/Caregiver Education, Self-Care/Home Management, Sensory Integration,Soft Tissue Mobilization,Taping, Therapeutic Activities, Therapeutic Exercises, Vestibular Rehabilitation Modalities Cold Pack/Ice Massage,Electric Stimulation,Hot Packs, Ultrasound Next Visit Focus/Plan Next Note Type Treatment Note Next Visit Plan cont to work on leg and neck mobility & core stabiltiy; progress towards indep HEP Plan of Care Dates Plan of Care Start Date 12/11/22 Plan of Care End Date 03/04/23 Electronically Signed by: Sheldon Mayorga, PT 01/04/23 0855 If you are in agreement with this Plan of Care, please return a signed and dated copy. I have reviewed this Plan of Care and certify that the skilled therapy services above are required to meet the patient?s needs. Physician Signature Date Printed Name and Credentials Clinical Instructor Signature Printed Name and Credentials
--- NOTE | 2022-12-11 15:25 | PT.OTN ---
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) Headache, unspecified (12/11/22) Weakness (12/11/22) Physical Therapy Treatment Note PT-OP-A Visit Information Start: 08/22/20 07:37 Freq: Status: Active Protocol: Document 12/11/22 14:45 DCW (Rec: 12/11/22 15:25 DCW [id number]) Out-Patient Physical Therapy Visit Information Visit Information Visit Type Treatment Note Visit Start Time 14:45 Visit Stop Time 15:20 Total Visit Minutes 35 Visit Number 2022 Number of CRATE OPENER Visits 0 PT-OP-B Current Condition Start: 08/22/20 07:37 Freq: Status: Active Protocol: Document 08/23/20 12:13 MB (Rec: 08/23/20 13:04 MB [id number]) Current Condition History of Current Condition Onset Date Surgery 07/27/20 Current Complaints Dizziness, light-headedness, ETIENNE and left leg pain and imbalance History of Current Condition 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 Pt had fall and concussion then as passed out. In PMH, pt writes back pain, superficial blood clot right LE, ulcers. Current complaints include: dizziness when active (walking and movements of neck), decreased processing words, headaches managed by medications, trouble opening right side of jaw post-op, neck pain and stiffness. Pt denies falls since surgery. Pt is wearing an ice hat. Pt reports pain right side of head, left jaw and left thigh. ETIENNE pain gets up to 5/10 with medication. Her neck pain is 4 /10. Left leg pain gets up to 7/10. She reports left leg pain as deep and shooting. Pt reports pain with walking on left leg. Pt reports that her left leg feels weak. The Cymbalta helps with nerve pain . Pt reports that her right eye brown does not yet move after surgery and the right side of her head is swollen. Mother states that pt still does not have any appetite. Treatment Goals Patient/Caregiver Goals Decrease pain, increase balance and leg strength. PT-OP-C Subjective Start: 08/22/20 07:37 Freq: Status: Active Protocol: Document 12/11/22 14:45 DCW (Rec: 12/11/22 15:25 DCW [id number]) OP-PT Subjective Patient Comments Patient Comments Pt reports she has tried to do some of her vestibular exercises for a shorter amount of time, admits that some of them seem to bother her neck more. PT-OP-D Balance Start: 08/22/20 07:37 Freq: Status: Active Protocol: Document 10/02/22 14:39 LR (Rec: 10/02/22 16:41 [facility] [id number]) Balance Tests Single Limb Standing Single Limb- Right 3 sec Single Limb- Left 6 sec PT-OP-E Functional Tests Start: 08/30/21 14:38 Freq: Status: Active Protocol: Document 10/02/22 14:39 LR (Rec: 10/02/22 16:41 [facility] [id number]) Functional Tests 6 Minute Walk Test Distance 1500ft Device Used none Comments no LOB Functional Gait Assessment Score 23 PT-OP-G Mobility & Gait Start: 08/22/20 07:37 Freq: Status: Active Protocol: Document 08/23/20 12:13 MB (Rec: 08/23/20 14:14 MB [id number]) OP Gait Assessment Gait Gait Assistance Required: Independent Distance (Feet) 50 Able to Maintain Weight Bearing Status Yes During Gait Assistive Devices Assistive Device None Orthotic/Prosthetic Devices or Brace: No Gait Deviations General Gait Pattern Decreased Stride Length Factors Limiting Gait Function Factors Limiting Gait Function Decreased Strength,Pain,Poor Balance Comments Gait Comments Pt favors the left leg, looks down at the floor, presents with hesitancy with gait PT-OP-H Neuro Start: 08/22/20 07:37 Freq: Status: Active Protocol: Document 08/23/20 12:13 MB (Rec: 08/23/20 14:14 MB [id number]) Sensation Evaluation Comments Summary Comments Pt reports numbness right temporal area and eye brow Coordination Evaluation Upper Extremity Tests Right Finger to Nose Test Normal Performance Pronation/Supination Test Normal Performance Left Finger to Nose Test Normal Performance Pronation/Supination Test Minimal Impairment Comments Coordination Comments Right toe tapping over opposite foot normal x5 reps, rapid and accurate. Slow with left toe tapping over right foot and inaccurate, given for exercise for home: 10 reps every hour when sitting Vital Signs Pulse 1 Pulse at Rest (bpm) 77 Pulse Assessment Method Cuff Blood Pressure Sitting Blood Pressure (90/60-120/80 mmHg) 132/90 H Blood Pressure Source Automatic Cuff,Right Upper Extremity Comments Vital Signs Comments Doctor note for BP written under precautions, pt is in recommended range today PT-OP-J Posture/Palpation/Skin Start: 08/22/20 07:37 Freq: Status: Active Protocol: Document 07/16/22 17:17 [facility] (Rec: 07/16/22 17:17 [facility] [id number]) Posture Evaluation Mihir Postural Classification System Vertebral Compression Test 3 Lumbar Protective Mechanism Left AP 1 Lumbar Protective Mechanism Right AP 2 Lumbar Protective Mechanism Left PA 2 Lumbar Protective Mechanism Right PA 1 PT-OP-K Range of Motion Start: 08/22/20 07:37 Freq: Status: Active Protocol: Document 07/16/22 17:17 [facility] (Rec: 07/16/22 17:20 [facility] [id number]) Cervical Spine Range of Motion Cervical Spine Active Degrees Flexion 56 Extension 48 Rotation Left 62 Rotation Right 71 Lateral Flexion Left 45 Lateral Flexion Right 50 Comments mild nausea w/flex, nausea & pain in neck (pinch), pinching R w/R SB; dizzy w/L rot PT-OP-M Strength Start: 08/22/20 07:37 Freq: Status: Active Protocol: Document 10/02/22 14:39 [facility] (Rec: 10/02/22 16:41 [facility] [id number]) Hip Strength Hip Manual Muscle Testing Left Flexion (L2) 4+ Good+ Extension (S1) 4+ Good+ Abduction 4 Good Adduction 5 Normal External Rotation 5 Normal Internal Rotation 4+ Good+ Right Flexion (L2) 5 Normal Extension (S1) 5 Normal Abduction 5 Normal Adduction 5 Normal External Rotation 5 Normal Internal Rotation 5 Normal Knee Strength Knee Manual Muscle Testing Left Flexion (S2) 5 Normal Extension (L3) 5 Normal Comments Pt sitting Right Flexion (S2) 5 Normal Extension (L3) 5 Normal Comments Pt sitting Ankle/Foot Strength Ankle and Foot Manual Muscle Testing Left Dorsiflexion (L4) 5 Normal Plantarflexion (S1) 5 Normal Comments 20 heel raises Right Dorsiflexion (L4) 5 Normal Plantarflexion (S1) 5 Normal Comments 20 heel raises PT-OP-O Vestibular Start: 08/22/20 07:37 Freq: Status: Active Protocol: Document 11/20/22 14:00 DCW (Rec: 11/20/22 14:45 DCW [id number]) Vestibular Assessment Visual Testing Smooth Pursuits Horizontal WNL Smooth Pursuits Vertical WNL Saccades Horizontal WNL Heave Test Negative Thrust Head Negative Convergence Test 10 cm DVA (Line Degradation) 3 Vestibulo-Ocular Reflex (VOR1) Nausea PT-OP-Q Treatments Start: 08/22/20 07:37 Freq: Status: Active Protocol: Document 12/11/22 14:45 DCW (Rec: 12/11/22 15:25 DCW [id number]) Neuro Re-Education Treatment Vestibular Rehabilitation Laser Details VOR training Comments Cursive name writing with laser over floral board, head turns to metronome (horiz 50bpm, vert 50->70 bpm), maze Alma Board Details Alma Board Position Normal Stance Disco ball Details Disco ball Position seated Comments Pt only able to tolerate ~10 seconds before reporting dizziness and eye pain PT-OP-R Modalities Start: 08/22/20 07:37 Freq: Status: Active Protocol: Document 09/10/22 13:00 [facility] (Rec: 09/10/22 14:23 [facility] [id number]) Hot Pack/Cold Pack Treatment Cold Pack Location LS Patient Position Hooklying Treatment Duration (minutes) 10 PT-OP-T Assessment and Plan Start: 08/22/20 07:37 Freq: Status: Active Protocol: Document 12/11/22 14:45 DCW (Rec: 12/11/22 15:25 FLW [id number]) Physical Therapy Assessment Goals 5 Manual Training Teacher Goal (LTG) Pt will gait train at least 1650 feet in 6 minutes without AD and no LOB or dragging finger on the wall for steadying assist by 08/31/21. 07/03/21: Pt gait trains 1654 feet in 6 minutes with occ left index finger dragging along wall to assist with balance with anti-clockwise gait. 06/02/21: Pt gait trains 1541 feet in 6 minutes, walking anti-clockwise. Twice, she rubs left hand on corner when turning to the left in the hallway. She has increased arms out and right arm swing and left LE does not move as well motor-viera compared to the right and requires effort to clear foot each time. Pt is wearing short wellingtons and this may cause exaggeration of lifting foot, requiring more effort which shows as such on the left. 03/29/21: Pt gait trains 1531 feet in 6 minutes, which is 3 feet further than when last tested in October 202008/30-1431ft 11/28-1481ft 02/20/22-1523ft touched wall 1x & mild instability throughout 05/07-1530ft w/less notable instability- only 2x slight uneven movement of trunk 07/16-occ touching of wall 1522ft 10/02-1500ft (likely dec some d/ t change in set up so required pt to turn around more often) ; no touching wall LTG Duration 12/22 4 Detention Goal (LTG) Pt will be able to do all ROM of neck WNL w/o inc pain or feeling of nausea or dizziness 10/02-still limited LTG Duration 12/24 3 Short Term Goal (STG) Pt will perform progressive HEP with I including postural, flexibility, balance, LE strengthening, breathing, and VOR exercises to decrease symptoms and improve balance by 08/31/21. 07/03/21: Pt is performing band exercises for legs, back manager orange self-massage, breathing, walking the dog, pelvic realignment exercises and balance exercises in the hallway. She is doing exercises 1-2x/wk. 08/30-pt walking and doing exercises at home plan to update and progress program 11/28-advancing based on cont deficits STG Duration achieved and progressing as able Manual Training Teacher Goal (LTG) Pt will have at least 4+/5 all LE MMT 02/20-abd, IR still limited but overall much improved 05/17-slowly improved 07/16-no major change 10/02-abd only one not met LTG Duration 12/24 2 Detention Goal (LTG) adjusted goal: to Pt will report ETIENNE no greater than /10 10/02-pt reports no recent change w/ETIENNE LTG Duration 12/21 1 Impairment balance Short Term Goal (STG) Pt will be able to do SLS B 5 sec 10/02-achieved L but limited R still STG Duration 11/12/22 Manual Training Teacher Goal (LTG) Pt will perform WNLs on FGA to decrease fall risk and improve balance by 08/31/21. 07/03/21: FGA score is slightly improved with score 18/30 and pt reporting gait with head turns up and down and walking with eyes closed being the most symptomatic. Tandem gait is still not very possible. Turning at the end of the hallway required her to reach out to catch her balance. 08/30- 11/28- improved 02/20--today was a bad day and pt scored same, but typically would do better on mult of the task. 05/07- 07/16- LTG Duration achieved to Assessment Summary Assessment Pt still unable to tolerate most vestibular challenges any longer than 15-30 seconds, quickly became dizzy, nauseated, or had complaints of eye pain. Recommended pt to continue vestibular HEP as tolerated, and touch base with vestibular PT ~1x/month to pc installation engineer changes to tolerance and adjust HEP recommendations accordingly. Physical Therapy Plan Frequency and Duration Frequency of Treatment 1x/wk Duration of treatment (weeks) 12 Plan of Care Start Date 10/02/22 Plan of Care End Date 12/25/22 Therapeutic Interventions Therapeutic Interventions Balance Training,Canalithic Repositioning,Coordination Training,Gait Training,Home Exercise Program,Joint Mobilizations,Manual Therapy, Neuromuscular Re-education, Patient/Caregiver Education, Self-Care/Home Management, Sensory Integration,Soft Tissue Mobilization,Taping, Therapeutic Activities, Therapeutic Exercises, Vestibular Rehabilitation Modalities Cold Pack/Ice Massage,Electric Stimulation,Hot Packs, Ultrasound Next Visit Focus/Plan Next Note Type Treatment Note Next Visit Plan cont to work on leg and neck mobility & core stabiltiy; progress towards indep HEP
--- NOTE | 2023-02-20 18:24 | PT.OPPOC ---
Physical, Occupational & Speech Therapy At [facility] Current Diagnoses Moyamoya disease (02/20/23) Headache, unspecified (02/20/23) Weakness (02/20/23) Visit Care Team Role Provider Type Christen Figueroa PA-C Attending Provider Non-Staff Primary Care Provider Referring Provider Specialty: Family Practice Address: [address] [place] [address], [address], [place], [address] Email: Plan Of Care PT-OP-T Assessment and Plan Start: 08/22/20 07:37 Freq: Status: Active Protocol: Document 02/20/23 16:56 [facility] (Rec: 02/20/23 18:27 [facility] [id number]) Physical Therapy Assessment Goals 5 Impairment activity tolerance Impairment can only walk 1 block to about 3/4mile a day w/1 seated break (depends on day); or do 2 miles w/throttle use on bike beofre exhausted Short Term Goal (STG) Pt will gait train at least 1650 feet in 6 minutes without AD and no LOB or dragging finger on the wall for steadying assist by 08/31/21. 07/03/21: Pt gait trains 1654 feet in 6 minutes with occ left index finger dragging along wall to assist with balance with anti-clockwise gait. 06/02/21: Pt gait trains 1541 feet in 6 minutes, walking anti-clockwise. Twice, she rubs left hand on corner when turning to the left in the hallway. She has increased arms out and right arm swing and left LE does not move as well motor-viera compared to the right and requires effort to clear foot each time. Pt is wearing short wellingtons and this may cause exaggeration of lifting foot, requiring more effort which shows as such on the left. 03/29/21: Pt gait trains 1531 feet in 6 minutes, which is 3 feet further than when last tested in October 202008/30-1431ft 11/28-1481ft 02/20/22-1523ft touched wall 1x & mild instability throughout 05/07-1530ft w/less notable instability- only 2x slight uneven movement of trunk 07/16-occ touching of wall 1522ft 10/02-1500ft (likely dec some d/ t change in set up so required pt to turn around more often) ; no touching wall 02/20-1493ft with 1 touch to wall. LOB after 4 min STG Duration 04/14 Machine Puller Over Goal (LTG) Pt will report inc tolerance w /activity in order to increase her ability to walk w/max walk being at least 1 mile w/ no more than 1 seated rest break LTG Duration 05/15 4 Short Term Goal (STG) Pt will be able to throw the ball for her dog for 10-15 min w/o inc neck pain ggreater than 08/10 STG Duration 04/14 Snf Goal (LTG) Pt will be able to do all ROM of neck WNL w/o inc pain or feeling of nausea or dizziness 10/02-still limited 02/21-cont limitation w/pt noting nausea w/ext & L rot LTG Duration 12/24 3 Short Term Goal (STG) Pt will perform progressive HEP with I including postural, flexibility, balance, LE strengthening, breathing, and VOR exercises to decrease symptoms and improve balance by 08/31/21. 07/03/21: Pt is performing band exercises for legs, back marine animal trainer self-massage, breathing, walking the dog, pelvic realignment exercises and balance exercises in the hallway. She is doing exercises 1-2x/wk. 08/30-pt walking and doing exercises at home plan to update and progress program 11/28-advancing based on cont deficits STG Duration achieved and progressing as able Snf Goal (LTG) Pt will have at least 4+/5 all LE MMT 02/20-abd, IR still limited but overall much improved 05/17-slowly improved 07/16-no major change 10/02-abd only one not met 02/21-n/t LTG Duration 05/10 2 Snf Goal (LTG) adjusted goal: to Pt will report ETIENNE no greater than 10/08 10/02-pt reports no recent change w/ETIENNE 02/20-ETIENNE 02/07 recently LTG Duration 05/15 1 Impairment balance Snf Goal (LTG) Pt will be able to do SLS B 5 sec 10/02-achieved L but limited R still 02/20-6 sec R, 2 sec L LTG Duration 05/15/23 Assessment Summary Assessment Pt has noted dec dizziness since starting vestibular care despite the significant inc that was noted initially after session. Pt is to cont PT care for dec pain and working on balance along w/1x month working w/vestibular therapist to focus on improving dizziness symptoms to improve quality of life. Pt is still limited w/her mobility and this was notable during 6 min walk testing as pt started to have dec foot clearance after about 4 min of test and had minor LOB w/a few requiring her to touch the wall. This puts patient at risk for falls in the community. Pt to cont PT to dec dizziness, HAs, and pain while working to inc cervical and lumbar ROM and imprvoing gait and balance. Pt has not been seen for 2 months d/t difficulty w/ scheduling whci explains why pt has limite dprogress. Physical Therapy Plan Frequency and Duration Frequency of Treatment 1x/wk Duration of treatment (weeks) 12 Plan of Care Start Date 02/20/23 Plan of Care End Date 05/15/23 Therapeutic Interventions Therapeutic Interventions Balance Training,Canalithic Repositioning,Coordination Training,Gait Training,Home Exercise Program,Joint Mobilizations,Manual Therapy, Neuromuscular Re-education, Patient/Caregiver Education, Self-Care/Home Management, Sensory Integration,Soft Tissue Mobilization,Taping, Therapeutic Activities, Therapeutic Exercises, Vestibular Rehabilitation Modalities Cold Pack/Ice Massage,Electric Stimulation,Hot Packs, Ultrasound Next Visit Focus/Plan Next Note Type Treatment Note Next Visit Plan work on neck and cranial mobility to dec symptoms, cont vestibular care to dec dizziness symptoms Plan of Care Dates Plan of Care Start Date 02/20/23 Plan of Care End Date 05/15/23 Electronically Signed by: Tanya Dhaliwal, PT 02/21/23 6702 If you are in agreement with this Plan of Care, please return a signed and dated copy. I have reviewed this Plan of Care and certify that the skilled therapy services above are required to meet the patient?s needs. Physician Signature Date Printed Name and Credentials Clinical Instructor Signature Printed Name and Credentials
--- NOTE | 2023-02-20 18:24 | PT.OTN ---
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 (Rec: 02/20/23 18:27 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 Pt had fall and concussion then as passed out. In PMH, pt writes back pain, superficial blood clot right LE, ulcers. Current complaints include: dizziness when active (walking and movements of neck), decreased processing words, headaches managed by medications, trouble opening right side of jaw post-op, neck pain and stiffness. Pt denies falls since surgery. Pt is wearing an ice hat. Pt reports pain right side of head, left jaw and left thigh. ETIENNE pain gets up to 5/10 with medication. Her neck pain is 4 /10. Left leg pain gets up to 7/10. She reports left leg pain as deep and shooting. Pt reports pain with walking on left leg. Pt reports that her left leg feels weak. The Cymbalta helps with nerve pain . Pt reports that her right eye brown does not yet move after surgery and the right side of her head is swollen. Mother states that pt still does not have any appetite. Treatment Goals Patient/Caregiver Goals Decrease pain, increase balance and leg strength. PT-OP-C Subjective Start: 08/22/20 07:37 Freq: Status: Active Protocol: Document 02/20/23 16:56 [facility] (Rec: 02/20/23 18:27 [facility] [id number]) OP-PT Subjective Patient Comments Patient Comments pt reports ETIENNE have been worse with the heat. She got dizzy 2 hours after getting there. Pt reports she got an ebike and feels good with going straight but turning is still tricky and hsas to put her foot down often. She is sitting lower to be able to put her foot down fully. Pt reports she had biked and was a few blocks away and got way too tired and she didn't know where she was . She felt like she was looking behind herself. she was fine the next day. This was last week. Balance felt okay. PT-OP-D Balance Start: 08/22/20 07:37 Freq: Status: Active Protocol: Document 02/20/23 16:56 [facility] (Rec: 02/20/23 18:27 [facility] [id number]) Balance Tests Single Limb Standing Single Limb- Right 6 Single Limb- Left 2 PT-OP-E Functional Tests Start: 08/30/21 14:38 Freq: Status: Active Protocol: Document 02/20/23 16:56 [facility] (Rec: 02/20/23 18:27 [facility] [id number]) Functional Tests 6 Minute Walk Test Distance 1493ft Device Used none Comments after 4 min inc LOB PT-OP-G Mobility & Gait Start: 08/22/20 07:37 Freq: Status: Active Protocol: Document 08/23/20 12:13 MB (Rec: 08/23/20 14:14 MB [id number]) OP Gait Assessment Gait Gait Assistance Required: Independent Distance (Feet) 50 Able to Maintain Weight Bearing Status Yes During Gait Assistive Devices Assistive Device None Orthotic/Prosthetic Devices or Brace: No Gait Deviations General Gait Pattern Decreased Stride Length Factors Limiting Gait Function Factors Limiting Gait Function Decreased Strength,Pain,Poor Balance Comments Gait Comments Pt favors the left leg, looks down at the floor, presents with hesitancy with gait PT-OP-H Neuro Start: 08/22/20 07:37 Freq: Status: Active Protocol: Document 08/23/20 12:13 MB (Rec: 08/23/20 14:14 MB [id number]) Sensation Evaluation Comments Summary Comments Pt reports numbness right temporal area and eye brow Coordination Evaluation Upper Extremity Tests Right Finger to Nose Test Normal Performance Pronation/Supination Test Normal Performance Left Finger to Nose Test Normal Performance Pronation/Supination Test Minimal Impairment Comments Coordination Comments Right toe tapping over opposite foot normal x5 reps, rapid and accurate. Slow with left toe tapping over right foot and inaccurate, given for exercise for home: 10 reps every hour when sitting Vital Signs Pulse 1 Pulse at Rest (bpm) 77 Pulse Assessment Method Cuff Blood Pressure Sitting Blood Pressure (90/60-120/80 mmHg) 132/90 H Blood Pressure Source Automatic Cuff,Right Upper Extremity Comments Vital Signs Comments Doctor note for BP written under precautions, pt is in recommended range today PT-OP-J Posture/Palpation/Skin Start: 08/22/20 07:37 Freq: Status: Active Protocol: Document 07/16/22 17:17 [facility] (Rec: 07/16/22 17:17 [facility] [id number]) Posture Evaluation [facility] Postural Classification System Vertebral Compression Test 3 Lumbar Protective Mechanism Left AP 1 Lumbar Protective Mechanism Right AP 2 Lumbar Protective Mechanism Left PA 2 Lumbar Protective Mechanism Right PA 1 PT-OP-K Range of Motion Start: 08/22/20 07:37 Freq: Status: Active Protocol: Document 02/20/23 16:56 [facility] (Rec: 02/21/23 18:15 [facility] [id number]) Cervical Spine Range of Motion Cervical Spine Active Degrees Flexion 49 Extension 35 Rotation Left 52 Rotation Right 68 Lateral Flexion Left 40 Lateral Flexion Right 45 Comments mild nausea w/ext & L rot; pain w/L rot & SB &ext PT-OP-M Strength Start: 08/22/20 07:37 Freq: Status: Active Protocol: Document 10/02/22 14:39 [facility] (Rec: 10/02/22 16:41 [facility] [id number]) Hip Strength Hip Manual Muscle Testing Left Flexion (L2) 4+ Good+ Extension (S1) 4+ Good+ Abduction 4 Good Adduction 5 Normal External Rotation 5 Normal Internal Rotation 4+ Good+ Right Flexion (L2) 5 Normal Extension (S1) 5 Normal Abduction 5 Normal Adduction 5 Normal External Rotation 5 Normal Internal Rotation 5 Normal Knee Strength Knee Manual Muscle Testing Left Flexion (S2) 5 Normal Extension (L3) 5 Normal Comments Pt sitting Right Flexion (S2) 5 Normal Extension (L3) 5 Normal Comments Pt sitting Ankle/Foot Strength Ankle and Foot Manual Muscle Testing Left Dorsiflexion (L4) 5 Normal Plantarflexion (S1) 5 Normal Comments 20 heel raises Right Dorsiflexion (L4) 5 Normal Plantarflexion (S1) 5 Normal Comments 20 heel raises PT-OP-O Vestibular Start: 08/22/20 07:37 Freq: Status: Active Protocol: Document 11/20/22 14:00 [facility] (Rec: 11/20/22 14:45 [facility] [id number]) Vestibular Assessment Visual Testing Smooth Pursuits Horizontal WNL Smooth Pursuits Vertical WNL Saccades Horizontal WNL Heave Test Negative Thrust Head Negative Convergence Test 10 cm DVA (Line Degradation) 3 Vestibulo-Ocular Reflex (VOR1) Nausea PT-OP-Q Treatments Start: 08/22/20 07:37 Freq: Status: Active Protocol: Document 02/20/23 16:56 [facility] (Rec: 02/20/23 18:27 [facility] [id number]) Manual Therapy Treatment Soft Tissue Mobilization cervical Body Location R UT and LS and paraspinals & ligamentum nuchae Comments w/cervical rot Self-Care/Home Management Treatment Education Other Education 10min: discussion w/pt that vestibular rehab will take time and that her current report of dec dizziness may be related to starting this rehab strategy. Discussed w/pt progress and current limitations w/pt biggest concern of activity limitation . Pt educated to discuss w/ neurologist the bout of getting so tired she was unable to get herself home w/o her boyfriend;'s help. pt educated to call the MD re: this and see what their recommendationsa re. PT-OP-R Modalities Start: 08/22/20 07:37 Freq: Status: Active Protocol: Document 09/10/22 13:00 [facility] (Rec: 09/10/22 14:23 [facility] [id number]) Hot Pack/Cold Pack Treatment Cold Pack Location LS Patient Position Hooklying Treatment Duration (minutes) 10 PT-OP-T Assessment and Plan Start: 08/22/20 07:37 Freq: Status: Active Protocol: Document 02/20/23 16:56 [facility] (Rec: 02/20/23 18:27 [facility] [id number]) Physical Therapy Assessment Goals 5 Impairment activity tolerance Impairment can only walk 1 block to about 3/4mile a day w/1 seated break (depends on day); or do 2 miles w/throttle use on bike beofre exhausted Short Term Goal (STG) Pt will gait train at least 1650 feet in 6 minutes without AD and no LOB or dragging finger on the wall for steadying assist by 08/31/21. 07/03/21: Pt gait trains 1654 feet in 6 minutes with occ left index finger dragging along wall to assist with balance with anti-clockwise gait. 06/02/21: Pt gait trains 1541 feet in 6 minutes, walking anti-clockwise. Twice, she rubs left hand on corner when turning to the left in the hallway. She has increased arms out and right arm swing and left LE does not move as well motor-viera compared to the right and requires effort to clear foot each time. Pt is wearing short wellingtons and this may cause exaggeration of lifting foot, requiring more effort which shows as such on the left. 03/29/21: Pt gait trains 1531 feet in 6 minutes, which is 3 feet further than when last tested in October 2020/-1431ft 11/28-1481ft 02/20/22-1523ft touched wall 1x & mild instability throughout 05/07-1530ft w/less notable instability- only 2x slight uneven movement of trunk 07/16-occ touching of wall 1522ft 10/02-1500ft (likely dec some d/ t change in set up so required pt to turn around more often) ; no touching wall 02/20-1493ft with 1 touch to wall. LOB after 4 min STG Duration 04/14 Half-Way Goal (LTG) Pt will report inc tolerance w /activity in order to increase her ability to walk w/max walk being at least 1 mile w/ no more than 1 seated rest break LTG Duration 05/15 4 Short Term Goal (STG) Pt will be able to throw the ball for her dog for 10-15 min w/o inc neck pain ggreater than 08/10 STG Duration 04/14 Half-Way Goal (LTG) Pt will be able to do all ROM of neck WNL w/o inc pain or feeling of nausea or dizziness 10/02-still limited 02/21-cont limitation w/pt noting nausea w/ext & L rot LTG Duration 12/24 3 Short Term Goal (STG) Pt will perform progressive HEP with I including postural, flexibility, balance, LE strengthening, breathing, and VOR exercises to decrease symptoms and improve balance by 08/31/21. 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 She is doing exercises 1-2x/wk. 08/30-pt walking and doing exercises at home plan to update and progress program 11/28-advancing based on cont deficits STG Duration achieved and progressing as able Half-Way Goal (LTG) Pt will have at least 4+/5 all LE MMT 02/20-abd, IR still limited but overall much improved 05/17-slowly improved 07/16-no major change 10/02-abd only one not met 02/21-n/t LTG Duration 05/10 2 Plant Attendant Or Assistant Operator Goal (LTG) adjusted goal: to Pt will report ETIENNE no greater than 10/08 10/02-pt reports no recent change w/ETIENNE 02/20-ETIENNE 02/07 recently LTG Duration 05/15 1 Impairment balance Half-Way Goal (LTG) Pt will be able to do SLS B 5 sec 10/02-achieved L but limited R still 02/20-6 sec R, 2 sec L LTG Duration 05/15/23 Assessment Summary Assessment Pt has noted dec dizziness since starting vestibular care despite the significant inc that was noted initially after session. Pt is to cont PT care for dec pain and working on balance along w/1x month working w/vestibular therapist to focus on improving dizziness symptoms to improve quality of life. Pt is still limited w/her mobility and this was notable during 6 min walk testing as pt started to have dec foot clearance after about 4 min of test and had minor LOB w/a few requiring her to touch the wall. This puts patient at risk for falls in the community. Pt to cont PT to dec dizziness, HAs, and pain while working to inc cervical and lumbar ROM and imprvoing gait and balance. Pt has not been seen for 2 months d/t difficulty w/ scheduling [facility] explains why pt has limite dprogress. Physical Therapy Plan Frequency and Duration Frequency of Treatment 1x/wk Duration of treatment (weeks) 12 Plan of Care Start Date 02/20/23 Plan of Care End Date 05/15/23 Therapeutic Interventions Therapeutic Interventions Balance Training,Canalithic Repositioning,Coordination Training,Gait Training,Home Exercise Program,Joint Mobilizations,Manual Therapy, Neuromuscular Re-education, Patient/Caregiver Education, Self-Care/Home Management, Sensory Integration,Soft Tissue Mobilization,Taping, Therapeutic Activities, Therapeutic Exercises, Vestibular Rehabilitation Modalities Cold Pack/Ice Massage,Electric Stimulation,Hot Packs, Ultrasound Next Visit Focus/Plan Next Note Type Treatment Note Next Visit Plan work on neck and cranial mobility to dec symptoms, cont vestibular care to dec dizziness symptoms
--- NOTE | 2023-02-27 13:47 | PT.OTN ---
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) Headache, unspecified (02/27/23) Weakness (02/27/23) Physical Therapy Treatment Note PT-OP-A Visit Information Start: 08/22/20 07:37 Freq: Status: Active Protocol: Document 02/27/23 12:49 [facility] (Rec: 02/27/23 13:47 [facility] [id number]) Out-Patient Physical Therapy Visit Information Visit Information Visit Type Treatment Note Visit Start Time 12:49 Visit Stop Time 13:30 Total Visit Minutes 41 Visit Number [id number] Number of LOGISTIC MANAGER Visits 0 PT-OP-B Current Condition Start: 08/22/20 07:37 Freq: Status: Active Protocol: Document 08/23/20 12:13 [facility] (Rec: 08/23/20 13:04 [facility] [id number]) Current Condition History of Current Condition Onset Date Surgery 07/27/20 Current Complaints Dizziness, light-headedness, ETIENNE and left leg pain and imbalance History of Current Condition 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 Pt had fall and concussion then as passed out. In PMH, pt writes back pain, superficial blood clot right LE, ulcers. Current complaints include: dizziness when active (walking and movements of neck), decreased processing words, headaches managed by medications, trouble opening right side of jaw post-op, neck pain and stiffness. Pt denies falls since surgery. Pt is wearing an ice hat. Pt reports pain right side of head, left jaw and left thigh. ETIENNE pain gets up to 5/10 with medication. Her neck pain is 4 /10. Left leg pain gets up to 7/10. She reports left leg pain as deep and shooting. Pt reports pain with walking on left leg. Pt reports that her left leg feels weak. The Cymbalta helps with nerve pain . Pt reports that her right eye brown does not yet move after surgery and the right side of her head is swollen. Mother states that pt still does not have any appetite. Treatment Goals Patient/Caregiver Goals Decrease pain, increase balance and leg strength. PT-OP-C Subjective Start: 08/22/20 07:37 Freq: Status: Active Protocol: Document 02/27/23 12:49 [facility] (Rec: 02/27/23 13:47 [facility] [id number]) OP-PT Subjective Patient Comments Patient Comments Pt repots she was tired and had to nap after last session. Hasn't contacted her neurologist yet. PT-OP-D Balance Start: 08/22/20 07:37 Freq: Status: Active Protocol: Document 02/20/23 16:56 [facility] (Rec: 02/20/23 18:27 [facility] [id number]) Balance Tests Single Limb Standing Single Limb- Right 6 Single Limb- Left 2 PT-OP-E Functional Tests Start: 08/30/21 14:38 Freq: Status: Active Protocol: Document 02/20/23 16:56 [facility] (Rec: 02/20/23 18:27 [facility] [id number]) Functional Tests 6 Minute Walk Test Distance 1493ft Device Used none Comments after 4 min inc LOB PT-OP-G Mobility & Gait Start: 08/22/20 07:37 Freq: Status: Active Protocol: Document 08/23/20 12:13 MB (Rec: 08/23/20 14:14 MB [id number]) OP Gait Assessment Gait Gait Assistance Required: Independent Distance (Feet) 50 Able to Maintain Weight Bearing Status Yes During Gait Assistive Devices Assistive Device None Orthotic/Prosthetic Devices or Brace: No Gait Deviations General Gait Pattern Decreased Stride Length Factors Limiting Gait Function Factors Limiting Gait Function Decreased Strength,Pain,Poor Balance Comments Gait Comments Pt favors the left leg, looks down at the floor, presents with hesitancy with gait PT-OP-H Neuro Start: 08/22/20 07:37 Freq: Status: Active Protocol: Document 08/23/20 12:13 [facility] (Rec: 08/23/20 14:14 [facility] [id number]) Sensation Evaluation Comments Summary Comments Pt reports numbness right temporal area and eye brow Coordination Evaluation Upper Extremity Tests Right Finger to Nose Test Normal Performance Pronation/Supination Test Normal Performance Left Finger to Nose Test Normal Performance Pronation/Supination Test Minimal Impairment Comments Coordination Comments Right toe tapping over opposite foot normal x5 reps, rapid and accurate. Slow with left toe tapping over right foot and inaccurate, given for exercise for home: 10 reps every hour when sitting Vital Signs Pulse 1 Pulse at Rest (bpm) 77 Pulse Assessment Method Cuff Blood Pressure Sitting Blood Pressure (90/60-120/80 mmHg) 132/90 H Blood Pressure Source Automatic Cuff,Right Upper Extremity Comments Vital Signs Comments Doctor note for BP written under precautions, pt is in recommended range today PT-OP-J Posture/Palpation/Skin Start: 08/22/20 07:37 Freq: Status: Active Protocol: Document 07/16/22 17:17 [facility] (Rec: 07/16/22 17:17 [facility] [id number]) Posture Evaluation [facility] Postural Classification System Vertebral Compression Test 3 Lumbar Protective Mechanism Left AP 1 Lumbar Protective Mechanism Right AP 2 Lumbar Protective Mechanism Left PA 2 Lumbar Protective Mechanism Right PA 1 PT-OP-K Range of Motion Start: 08/22/20 07:37 Freq: Status: Active Protocol: Document 02/20/23 16:56 [facility] (Rec: 02/21/23 18:15 [facility] [id number]) Cervical Spine Range of Motion Cervical Spine Active Degrees Flexion 49 Extension 35 Rotation Left 52 Rotation Right 68 Lateral Flexion Left 40 Lateral Flexion Right 45 Comments mild nausea w/ext & L rot; pain w/L rot & SB &ext PT-OP-M Strength Start: 08/22/20 07:37 Freq: Status: Active Protocol: Document 10/02/22 14:39 [facility] (Rec: 10/02/22 16:41 [facility] [id number]) Hip Strength Hip Manual Muscle Testing Left Flexion (L2) 4+ Good+ Extension (S1) 4+ Good+ Abduction 4 Good Adduction 5 Normal External Rotation 5 Normal Internal Rotation 4+ Good+ Right Flexion (L2) 5 Normal Extension (S1) 5 Normal Abduction 5 Normal Adduction 5 Normal External Rotation 5 Normal Internal Rotation 5 Normal Knee Strength Knee Manual Muscle Testing Left Flexion (S2) 5 Normal Extension (L3) 5 Normal Comments Pt sitting Right Flexion (S2) 5 Normal Extension (L3) 5 Normal Comments Pt sitting Ankle/Foot Strength Ankle and Foot Manual Muscle Testing Left Dorsiflexion (L4) 5 Normal Plantarflexion (S1) 5 Normal Comments 20 heel raises Right Dorsiflexion (L4) 5 Normal Plantarflexion (S1) 5 Normal Comments 20 heel raises PT-OP-O Vestibular Start: 08/22/20 07:37 Freq: Status: Active Protocol: Document 11/20/22 14:00 [facility] (Rec: 11/20/22 14:45 [facility] [id number]) Vestibular Assessment Visual Testing Smooth Pursuits Horizontal WNL Smooth Pursuits Vertical WNL Saccades Horizontal WNL Heave Test Negative Thrust Head Negative Convergence Test 10 cm DVA (Line Degradation) 3 Vestibulo-Ocular Reflex (VOR1) Nausea PT-OP-Q Treatments Start: 08/22/20 07:37 Freq: Status: Active Protocol: Document 02/27/23 12:49 [facility] (Rec: 02/27/23 13:47 [facility] [id number]) Therapeutic Exercises Sitting Exercises chin tuck Sitting Exercise Name axial elongation Reps/Minutes 5 sec x8 Comments cues for form-tried w/band Standing Exercises SL Standing Exercise Name SLS trials Side bilateral Reps/Minutes 3x ea wall posture Standing Exercise Name wall roll up w/modified pivot prone & B shoulder ext Side bilateral Reps/Minutes 8 Comments required inc time each time to get into set up Instrascapular strengthening Standing Exercise Name B shoulder ext Side bilateral Equipment Used orange band Reps/Minutes 15 Comments cues for posture Manual Therapy Treatment Soft Tissue Mobilization cervical Body Location R UT and LS and paraspinals & ligamentum nuchae Comments w/cervical rot cranial fascia Body Location R>L Mobilization Type Myofascial Release Intensity/Depth Superficial Body Position Hooklying Comments w/chin tucks Joint Mobilizations thoracic Comments PA T1-3 Supine FM Self-Care/Home Management Treatment Education Other Education 99% O2, 67 HR, BP 136/94 PT-OP-R Modalities Start: 08/22/20 07:37 Freq: Status: Active Protocol: Document 09/10/22 13:00 [facility] (Rec: 09/10/22 14:23 [facility] [id number]) Hot Pack/Cold Pack Treatment Cold Pack Location LS Patient Position Hooklying Treatment Duration (minutes) 10 PT-OP-T Assessment and Plan Start: 08/22/20 07:37 Freq: Status: Active Protocol: Document 02/27/23 12:49 [facility] (Rec: 02/27/23 13:47 [facility] [id number]) Physical Therapy Assessment Goals 5 Impairment activity tolerance Impairment can only walk 1 block to about 3/4mile a day w/1 seated break (depends on day); or do 2 miles w/throttle use on bike beofre exhausted Short Term Goal (STG) Pt will gait train at least 1650 feet in 6 minutes without AD and no LOB or dragging finger on the wall for steadying assist by 08/31/21. 07/03/21: Pt gait trains 1654 feet in 6 minutes with occ left index finger dragging along wall to assist with balance with anti-clockwise gait. 06/02/21: Pt gait trains 1541 feet in 6 minutes, walking anti-clockwise. Twice, she rubs left hand on corner when turning to the left in the hallway. She has increased arms out and right arm swing and left LE does not move as well motor-viera compared to the right and requires effort to clear foot each time. Pt is wearing short wellingtons and this may cause exaggeration of lifting foot, requiring more effort which shows as such on the left. 03/29/21: Pt gait trains 1531 feet in 6 minutes, which is 3 feet further than when last tested in October 202008/30-1431ft 11/28-1481ft 02/20/22-1523ft touched wall 1x & mild instability throughout 05/07-1530ft w/less notable instability- only 2x slight uneven movement of trunk 07/16-occ touching of wall 1522ft 10/02-1500ft (likely dec some d/ t change in set up so required pt to turn around more often) ; no touching wall 02/20-1493ft with 1 touch to wall. LOB after 4 min STG Duration 04/14 Prison Goal (LTG) Pt will report inc tolerance w /activity in order to increase her ability to walk w/max walk being at least 1 mile w/ no more than 1 seated rest break LTG Duration 05/15 4 Short Term Goal (STG) Pt will be able to throw the ball for her dog for 10-15 min w/o inc neck pain ggreater than 08/10 STG Duration 04/14 Time Study Statistician Goal (LTG) Pt will be able to do all ROM of neck WNL w/o inc pain or feeling of nausea or dizziness 10/02-still limited 02/21-cont limitation w/pt noting nausea w/ext & L rot LTG Duration 12/24 3 Short Term Goal (STG) Pt will perform progressive HEP with I including postural, flexibility, balance, LE strengthening, breathing, and VOR exercises to decrease symptoms and improve balance by 08/31/21. 07/03/21: Pt is performing band exercises for legs, back microbial specialist self-massage, breathing, walking the dog, pelvic realignment exercises and balance exercises in the hallway. She is doing exercises 1-2x/wk. 3/-pt walking and doing exercises at home plan to update and progress program 11/28-advancing based on cont deficits STG Duration achieved and progressing as able Time Study Statistician Goal (LTG) Pt will have at least 4+/5 all LE MMT 02/20-abd, IR still limited but overall much improved 05/17-slowly improved 07/16-no major change 10/02-abd only one not met 02/21-n/t LTG Duration 05/10 2 Prison Goal (LTG) adjusted goal: to Pt will report ETIENNE no greater than 10/08 10/02-pt reports no recent change w/ETIENNE 02/20-ETIENNE 02/07 recently LTG Duration 05/15 1 Impairment balance Time Study Statistician Goal (LTG) Pt will be able to do SLS B 5 sec 10/02-achieved L but limited R still 02/20-6 sec R, 2 sec L LTG Duration 05/15/23 Assessment Summary Assessment Pt requires a lot of cues for posture w/exercises but is able to adjust w/cueing. pt did well w/manual w/improved cervical rotation. Physical Therapy Plan Frequency and Duration Frequency of Treatment 1x/wk Duration of treatment (weeks) 12 Plan of Care Start Date 02/20/23 Plan of Care End Date 05/15/23 Next Visit Focus/Plan Next Note Type Treatment Note Next Visit Plan work on neck and cranial mobility to dec symptoms, cont vestibular care to dec dizziness symptoms
--- NOTE | 2023-03-14 18:16 | PT.OTN ---
Current Diagnoses Moyamoya disease (03/14/23) Headache, unspecified (03/14/23) Weakness (03/14/23) Physical Therapy Treatment Note PT-OP-A Visit Information Start: 08/22/20 07:37 Freq: Status: Active Protocol: Document 03/14/23 18:11 [facility] (Rec: 03/14/23 18:15 [facility] [id number]) Out-Patient Physical Therapy Visit Information Visit Information Visit Type Treatment Note Visit Start Time 13:39 Visit Stop Time 14:17 Total Visit Minutes 38 Visit Number [id number] Number of AVICULTURIST Visits 0 PT-OP-B Current Condition Start: 08/22/20 07:37 Freq: Status: Active Protocol: Document 08/23/20 12:13 [facility] (Rec: 08/23/20 13:04 [facility] [id number]) Current Condition History of Current Condition Onset Date Surgery 07/27/20 Current Complaints Dizziness, light-headedness, ETIENNE and left leg pain and imbalance History of Current Condition 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 Pt had fall and concussion then as passed out. In PMH, pt writes back pain, superficial blood clot right LE, ulcers. Current complaints include: dizziness when active (walking and movements of neck), decreased processing words, headaches managed by medications, trouble opening right side of jaw post-op, neck pain and stiffness. Pt denies falls since surgery. Pt is wearing an ice hat. Pt reports pain right side of head, left jaw and left thigh. ETIENNE pain gets up to 5/10 with medication. Her neck pain is 4 /10. Left leg pain gets up to 7/10. She reports left leg pain as deep and shooting. Pt reports pain with walking on left leg. Pt reports that her left leg feels weak. The Cymbalta helps with nerve pain . Pt reports that her right eye brown does not yet move after surgery and the right side of her head is swollen. Mother states that pt still does not have any appetite. Treatment Goals Patient/Caregiver Goals Decrease pain, increase balance and leg strength. PT-OP-C Subjective Start: 08/22/20 07:37 Freq: Status: Active Protocol: Document 03/14/23 18:11 [facility] (Rec: 03/14/23 18:15 [facility] [id number]) OP-PT Subjective Patient Comments Patient Comments Pt reports she has been compliant w/HEP. She is going to get 2 different types of sleep studies. She contacted her neurolgist and has not heard back. She also told the sleep medicine neurologistw ho told her to refer to her primary neuro. PT-OP-D Balance Start: 08/22/20 07:37 Freq: Status: Active Protocol: Document 02/20/23 16:56 [facility] (Rec: 02/20/23 18:27 [facility] [id number]) Balance Tests Single Limb Standing Single Limb- Right 6 Single Limb- Left 2 PT-OP-E Functional Tests Start: 08/30/21 14:38 Freq: Status: Active Protocol: Document 02/20/23 16:56 [facility] (Rec: 02/20/23 18:27 [facility] [id number]) Functional Tests 6 Minute Walk Test Distance 1493ft Device Used none Comments after 4 min inc LOB PT-OP-G Mobility & Gait Start: 08/22/20 07:37 Freq: Status: Active Protocol: Document 08/23/20 12:13 [facility] (Rec: 08/23/20 14:14 MB [id number]) OP Gait Assessment Gait Gait Assistance Required: Independent Distance (Feet) 50 Able to Maintain Weight Bearing Status Yes During Gait Assistive Devices Assistive Device None Orthotic/Prosthetic Devices or Brace: No Gait Deviations General Gait Pattern Decreased Stride Length Factors Limiting Gait Function Factors Limiting Gait Function Decreased Strength,Pain,Poor Balance Comments Gait Comments Pt favors the left leg, looks down at the floor, presents with hesitancy with gait PT-OP-H Neuro Start: 08/22/20 07:37 Freq: Status: Active Protocol: Document 08/23/20 12:13 [facility] (Rec: 08/23/20 14:14 [facility] [id number]) Sensation Evaluation Comments Summary Comments Pt reports numbness right temporal area and eye brow Coordination Evaluation Upper Extremity Tests Right Finger to Nose Test Normal Performance Pronation/Supination Test Normal Performance Left Finger to Nose Test Normal Performance Pronation/Supination Test Minimal Impairment Comments Coordination Comments Right toe tapping over opposite foot normal x5 reps, rapid and accurate. Slow with left toe tapping over right foot and inaccurate, given for exercise for home: 10 reps every hour when sitting Vital Signs Pulse 1 Pulse at Rest (bpm) 77 Pulse Assessment Method Cuff Blood Pressure Sitting Blood Pressure (90/60-120/80 mmHg) 132/90 H Blood Pressure Source Automatic Cuff,Right Upper Extremity Comments Vital Signs Comments Doctor note for BP written under precautions, pt is in recommended range today PT-OP-J Posture/Palpation/Skin Start: 08/22/20 07:37 Freq: Status: Active Protocol: Document 07/16/22 17:17 [facility] (Rec: 07/16/22 17:17 [facility] [id number]) Posture Evaluation [facility] Postural Classification System Vertebral Compression Test 3 Lumbar Protective Mechanism Left AP 1 Lumbar Protective Mechanism Right AP 2 Lumbar Protective Mechanism Left PA 2 Lumbar Protective Mechanism Right PA 1 PT-OP-K Range of Motion Start: 08/22/20 07:37 Freq: Status: Active Protocol: Document 02/20/23 16:56 [facility] (Rec: 02/21/23 18:15 [facility] [id number]) Cervical Spine Range of Motion Cervical Spine Active Degrees Flexion 49 Extension 35 Rotation Left 52 Rotation Right 68 Lateral Flexion Left 40 Lateral Flexion Right 45 Comments mild nausea w/ext & L rot; pain w/L rot & SB &ext PT-OP-M Strength Start: 08/22/20 07:37 Freq: Status: Active Protocol: Document 10/02/22 14:39 [facility] (Rec: 10/02/22 16:41 [facility] [id number]) Hip Strength Hip Manual Muscle Testing Left Flexion (L2) 4+ Good+ Extension (S1) 4+ Good+ Abduction 4 Good Adduction 5 Normal External Rotation 5 Normal Internal Rotation 4+ Good+ Right Flexion (L2) 5 Normal Extension (S1) 5 Normal Abduction 5 Normal Adduction 5 Normal External Rotation 5 Normal Internal Rotation 5 Normal Knee Strength Knee Manual Muscle Testing Left Flexion (S2) 5 Normal Extension (L3) 5 Normal Comments Pt sitting Right Flexion (S2) 5 Normal Extension (L3) 5 Normal Comments Pt sitting Ankle/Foot Strength Ankle and Foot Manual Muscle Testing Left Dorsiflexion (L4) 5 Normal Plantarflexion (S1) 5 Normal Comments 20 heel raises Right Dorsiflexion (L4) 5 Normal Plantarflexion (S1) 5 Normal Comments 20 heel raises PT-OP-O Vestibular Start: 08/22/20 07:37 Freq: Status: Active Protocol: Document 11/20/22 14:00 [facility] (Rec: 11/20/22 14:45 [facility] [id number]) Vestibular Assessment Visual Testing Smooth Pursuits Horizontal WNL Smooth Pursuits Vertical WNL Saccades Horizontal WNL Heave Test Negative Thrust Head Negative Convergence Test 10 cm DVA (Line Degradation) 3 Vestibulo-Ocular Reflex (VOR1) Nausea PT-OP-Q Treatments Start: 08/22/20 07:37 Freq: Status: Active Protocol: Document 03/14/23 18:11 [facility] (Rec: 03/14/23 18:15 [facility] [id number]) Therapeutic Exercises Sitting Exercises chin tuck Sitting Exercise Name axial elongation Reps/Minutes 5 sec x15 Comments cues for form Standing Exercises wall posture Standing Exercise Name wall roll up w/modified pivot prone & B shoulder ext Side bilateral Reps/Minutes 8 Comments min cues for neck and back position Instrascapular strengthening Standing Exercise Name B shoulder ext Side bilateral Equipment Used orange band Reps/Minutes 15 Comments cues for posture Manual Therapy Treatment Soft Tissue Mobilization cervical Body Location B UT and LS and paraspinals & ligamentum nuchae Comments w/cervical rot Joint Mobilizations thoracic Comments PA T1-3 & transverse R FM seated w/cover position PA and UPA T5-7 FM ribs Comments upglide w/ant rot rib 5 FM cervical Grade II Comments C1 transverse R and UPA L FM C2 transverse R FM C5 transverse R Fm PT-OP-R Modalities Start: 08/22/20 07:37 Freq: Status: Active Protocol: Document 09/10/22 13:00 [facility] (Rec: 09/10/22 14:23 [facility] [id number]) Hot Pack/Cold Pack Treatment Cold Pack Location LS Patient Position Hooklying Treatment Duration (minutes) 10 PT-OP-T Assessment and Plan Start: 08/22/20 07:37 Freq: Status: Active Protocol: Document 03/14/23 18:11 [facility] (Rec: 03/14/23 18:15 [facility] [id number]) Physical Therapy Assessment Goals 5 Impairment activity tolerance Impairment can only walk 1 block to about 3/4mile a day w/1 seated break (depends on day); or do 2 miles w/throttle use on bike beofre exhausted Short Term Goal (STG) Pt will gait train at least 1650 feet in 6 minutes without AD and no LOB or dragging finger on the wall for steadying assist by 08/31/21. 07/03/21: Pt gait trains 1654 feet in 6 minutes with occ left index finger dragging along wall to assist with balance with anti-clockwise gait. 06/02/21: Pt gait trains 1541 feet in 6 minutes, walking anti-clockwise. Twice, she rubs left hand on corner when turning to the left in the hallway. She has increased arms out and right arm swing and left LE does not move as well motor-viera compared to the right and requires effort to clear foot each time. Pt is wearing short wellingtons and this may cause exaggeration of lifting foot, requiring more effort which shows as such on the left. 03/29/21: Pt gait trains 1531 feet in 6 minutes, which is 3 feet further than when last tested in October 202008/30-1431ft 11/28-1481ft 02/20/22-1523ft touched wall 1x & mild instability throughout 05/07-1530ft w/less notable instability- only 2x slight uneven movement of trunk 07/16-occ touching of wall 1522ft 10/02-1500ft (likely dec some d/ t change in set up so required pt to turn around more often) ; no touching wall 02/20-1493ft with 1 touch to wall. LOB after 4 min STG Duration 04/14 [facility] Goal (LTG) Pt will report inc tolerance w /activity in order to increase her ability to walk w/max walk being at least 1 mile w/ no more than 1 seated rest break LTG Duration 05/15 4 Short Term Goal (STG) Pt will be able to throw the ball for her dog for 10-15 min w/o inc neck pain ggreater than 08/10 STG Duration 04/14 [facility] Goal (LTG) Pt will be able to do all ROM of neck WNL w/o inc pain or feeling of nausea or dizziness 10/02-still limited 02/21-cont limitation w/pt noting nausea w/ext & L rot LTG Duration 12/24 3 Short Term Goal (STG) Pt will perform progressive HEP with I including postural, flexibility, balance, LE strengthening, breathing, and VOR exercises to decrease symptoms and improve balance by 08/31/21. 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 She is doing exercises 1-2x/wk. 3-pt walking and doing exercises at home plan to update and progress program 11/28-advancing based on cont deficits STG Duration achieved and progressing as able [facility] Goal (LTG) Pt will have at least 4+/5 all LE MMT 02/20-abd, IR still limited but overall much improved 05/17-slowly improved 07/16-no major change 10/02-abd only one not met 02/21-n/t LTG Duration 05/10 2 [employer] Goal (LTG) adjusted goal: to Pt will report ETIENNE no greater than 10/08 10/02-pt reports no recent change w/ETIENNE 02/20-ETIENNE 02/07 recently LTG Duration 05/15 1 Impairment balance [employer] Goal (LTG) Pt will be able to do SLS B 5 sec 10/02-achieved L but limited R still 02/20-6 sec R, 2 sec L LTG Duration 05/15/23 Assessment Summary Assessment Pt started w/about 50% L rotation and SB and pain w/ these motions which improved after to no pain and full SB L and 90% L rot. Pt did well with exercises. did need some cues w/axial elongation Physical Therapy Plan Frequency and Duration Frequency of Treatment 1x/wk Duration of treatment (weeks) 12 Plan of Care Start Date 02/20/23 Plan of Care End Date 05/15/23 Next Visit Focus/Plan Next Note Type Treatment Note Next Visit Plan work on neck and cranial mobility to dec symptoms, cont vestibular care to dec dizziness symptoms
--- NOTE | 2023-03-18 14:42 | PT.OTN ---
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) Headache, unspecified (03/18/23) Weakness (03/18/23) Physical Therapy Treatment Note PT-OP-A Visit Information Start: 08/22/20 07:37 Freq: Status: Active Protocol: Document 03/18/23 13:43 [facility] (Rec: 03/18/23 14:42 [facility] [id number]) Out-Patient Physical Therapy Visit Information Visit Information Visit Type Treatment Note Visit Start Time 13:34 Visit Stop Time 13:14 Total Visit Minutes 40 Visit Number Number of CONSTRUCTION DRIVER Visits 0 PT-OP-B Current Condition Start: 08/22/20 07:37 Freq: Status: Active Protocol: Document 08/23/20 12:13 [facility] (Rec: 08/23/20 13:04 [facility] [id number]) Current Condition History of Current Condition Onset Date Surgery 07/27/20 Current Complaints Dizziness, light-headedness, ETIENNE and left leg pain and imbalance History of Current Condition 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 Pt had fall and concussion then as passed out. In PMH, pt writes back pain, superficial blood clot right LE, ulcers. Current complaints include: dizziness when active (walking and movements of neck), decreased processing words, headaches managed by medications, trouble opening right side of jaw post-op, neck pain and stiffness. Pt denies falls since surgery. Pt is wearing an ice hat. Pt reports pain right side of head, left jaw and left thigh. ETIENNE pain gets up to 5/10 with medication. Her neck pain is 4 /10. Left leg pain gets up to 7/10. She reports left leg pain as deep and shooting. Pt reports pain with walking on left leg. Pt reports that her left leg feels weak. The Cymbalta helps with nerve pain . Pt reports that her right eye brown does not yet move after surgery and the right side of her head is swollen. Mother states that pt still does not have any appetite. Treatment Goals Patient/Caregiver Goals Decrease pain, increase balance and leg strength. PT-OP-C Subjective Start: 08/22/20 07:37 Freq: Status: Active Protocol: Document 03/18/23 13:43 [facility] (Rec: 03/18/23 14:42 [facility] [id number]) OP-PT Subjective Patient Comments Patient Comments Pt reports doing okay after last session. PT-OP-D Balance Start: 08/22/20 07:37 Freq: Status: Active Protocol: Document 02/20/23 16:56 [facility] (Rec: 02/20/23 18:27 [facility] [id number]) Balance Tests Single Limb Standing Single Limb- Right 6 Single Limb- Left 2 PT-OP-E Functional Tests Start: 08/30/21 14:38 Freq: Status: Active Protocol: Document 02/20/23 16:56 [facility] (Rec: 02/20/23 18:27 [facility] [id number]) Functional Tests 6 Minute Walk Test Distance 1493ft Device Used none Comments after 4 min inc LOB PT-OP-G Mobility & Gait Start: 08/22/20 07:37 Freq: Status: Active Protocol: Document 08/23/20 12:13 [facility] (Rec: 08/23/20 14:14 [facility] [id number]) OP Gait Assessment Gait Gait Assistance Required: Independent Distance (Feet) 50 Able to Maintain Weight Bearing Status Yes During Gait Assistive Devices Assistive Device None Orthotic/Prosthetic Devices or Brace: No Gait Deviations General Gait Pattern Decreased Stride Length Factors Limiting Gait Function Factors Limiting Gait Function Decreased Strength,Pain,Poor Balance Comments Gait Comments Pt favors the left leg, looks down at the floor, presents with hesitancy with gait PT-OP-H Neuro Start: 08/22/20 07:37 Freq: Status: Active Protocol: Document 08/23/20 12:13 [facility] (Rec: 08/23/20 14:14 [facility] [id number]) Sensation Evaluation Comments Summary Comments Pt reports numbness right temporal area and eye brow Coordination Evaluation Upper Extremity Tests Right Finger to Nose Test Normal Performance Pronation/Supination Test Normal Performance Left Finger to Nose Test Normal Performance Pronation/Supination Test Minimal Impairment Comments Coordination Comments Right toe tapping over opposite foot normal x5 reps, rapid and accurate. Slow with left toe tapping over right foot and inaccurate, given for exercise for home: 10 reps every hour when sitting Vital Signs Pulse 1 Pulse at Rest (bpm) 77 Pulse Assessment Method Cuff Blood Pressure Sitting Blood Pressure (90/60-120/80 mmHg) 132/90 H Blood Pressure Source Automatic Cuff,Right Upper Extremity Comments Vital Signs Comments Doctor note for BP written under precautions, pt is in recommended range today PT-OP-J Posture/Palpation/Skin Start: 08/22/20 07:37 Freq: Status: Active Protocol: Document 07/16/22 17:17 [facility] (Rec: 07/16/22 17:17 [facility] [id number]) Posture Evaluation [facility] Postural Classification System Vertebral Compression Test 3 Lumbar Protective Mechanism Left AP 1 Lumbar Protective Mechanism Right AP 2 Lumbar Protective Mechanism Left PA 2 Lumbar Protective Mechanism Right PA 1 PT-OP-K Range of Motion Start: 08/22/20 07:37 Freq: Status: Active Protocol: Document 02/20/23 16:56 [facility] (Rec: 02/21/23 18:15 [facility] [id number]) Cervical Spine Range of Motion Cervical Spine Active Degrees Flexion 49 Extension 35 Rotation Left 52 Rotation Right 68 Lateral Flexion Left 40 Lateral Flexion Right 45 Comments mild nausea w/ext & L rot; pain w/L rot & SB &ext PT-OP-M Strength Start: 08/22/20 07:37 Freq: Status: Active Protocol: Document 10/02/22 14:39 [facility] (Rec: 10/02/22 16:41 [facility] [id number]) Hip Strength Hip Manual Muscle Testing Left Flexion (L2) 4+ Good+ Extension (S1) 4+ Good+ Abduction 4 Good Adduction 5 Normal External Rotation 5 Normal Internal Rotation 4+ Good+ Right Flexion (L2) 5 Normal Extension (S1) 5 Normal Abduction 5 Normal Adduction 5 Normal External Rotation 5 Normal Internal Rotation 5 Normal Knee Strength Knee Manual Muscle Testing Left Flexion (S2) 5 Normal Extension (L3) 5 Normal Comments Pt sitting Right Flexion (S2) 5 Normal Extension (L3) 5 Normal Comments Pt sitting Ankle/Foot Strength Ankle and Foot Manual Muscle Testing Left Dorsiflexion (L4) 5 Normal Plantarflexion (S1) 5 Normal Comments 20 heel raises Right Dorsiflexion (L4) 5 Normal Plantarflexion (S1) 5 Normal Comments 20 heel raises PT-OP-O Vestibular Start: 08/22/20 07:37 Freq: Status: Active Protocol: Document 11/20/22 14:00 [facility] (Rec: 11/20/22 14:45 [facility] [id number]) Vestibular Assessment Visual Testing Smooth Pursuits Horizontal WNL Smooth Pursuits Vertical WNL Saccades Horizontal WNL Heave Test Negative Thrust Head Negative Convergence Test 10 cm DVA (Line Degradation) 3 Vestibulo-Ocular Reflex (VOR1) Nausea PT-OP-Q Treatments Start: 08/22/20 07:37 Freq: Status: Active Protocol: Document 03/18/23 13:43 [facility] (Rec: 03/18/23 14:42 [facility] [id number]) Therapeutic Exercises Supine Exercises flex Supine Exercise Name segmental flex Reps/Minutes 8 Sitting Exercises sit back Sitting Exercise Name V sit Reps/Minutes 12 Comments max cues for cervical posture position chin tuck Sitting Exercise Name axial elongation Equipment Used w/band peach Reps/Minutes 5 sec x15 Comments cues for form Standing Exercises wall posture Standing Exercise Name wall roll up w/modified pivot prone & then 90/90 HAbd Side bilateral Reps/Minutes 8 Comments min cues for neck and back position Other Exercises quadruped Other Exercise Name alt hip ext w/focus on axial elongation hold Side bilateral Reps/Minutes 12 ea Manual Therapy Treatment Soft Tissue Mobilization cervical Body Location B UT and LS and paraspinals & SCM & scalenes Comments w/cervical rot and chin tuck seated and supine cranial fascia Body Location R>L Mobilization Type Myofascial Release Intensity/Depth Superficial Body Position Hooklying Comments w/chin tucks Joint Mobilizations thoracic Comments Transverse R T1-4 and T6 and 7 FM seated PT-OP-R Modalities Start: 08/22/20 07:37 Freq: Status: Active Protocol: Document 09/10/22 13:00 [facility] (Rec: 09/10/22 14:23 [facility] [id number]) Hot Pack/Cold Pack Treatment Cold Pack Location LS Patient Position Hooklying Treatment Duration (minutes) 10 PT-OP-T Assessment and Plan Start: 08/22/20 07:37 Freq: Status: Active Protocol: Document 03/18/23 13:43 [facility] (Rec: 03/18/23 14:42 [facility] [id number]) Physical Therapy Assessment Goals 5 Impairment activity tolerance Impairment can only walk 1 block to about 3/4mile a day w/1 seated break (depends on day); or do 2 miles w/throttle use on bike beofre exhausted Short Term Goal (STG) Pt will gait train at least 1650 feet in 6 minutes without AD and no LOB or dragging finger on the wall for steadying assist by 08/31/21. 07/03/21: Pt gait trains 1654 feet in 6 minutes with occ left index finger dragging along wall to assist with balance with anti-clockwise gait. 06/02/21: Pt gait trains 1541 feet in 6 minutes, walking anti-clockwise. Twice, she rubs left hand on corner when turning to the left in the hallway. She has increased arms out and right arm swing and left LE does not move as well motor-viera compared to the right and requires effort to clear foot each time. Pt is wearing short wellingtons and this may cause exaggeration of lifting foot, requiring more effort which shows as such on the left. 03/29/21: Pt gait trains 1531 feet in 6 minutes, which is 3 feet further than when last tested in October 202008/30-1431ft 11/28-148ft 02/20/22-1523ft touched wall 1x & mild instability throughout 05/07-1530ft w/less notable instability- only 2x slight uneven movement of trunk 07/16-occ touching of wall 1522ft 10/02-1500ft (likely dec some d/ t change in set up so required pt to turn around more often) ; no touching wall 02/20-149 with 1 touch to wall. LOB after 4 min STG Duration 04/14 Nursing Home Goal (LTG) Pt will report inc tolerance w /activity in order to increase her ability to walk w/max walk being at least 1 mile w/ no more than 1 seated rest break LTG Duration 05/15 4 Short Term Goal (STG) Pt will be able to throw the ball for her dog for 10-15 min w/o inc neck pain ggreater than 08/10 STG Duration 04/14 Pigs Feet Cleaner Goal (LTG) Pt will be able to do all ROM of neck WNL w/o inc pain or feeling of nausea or dizziness 10/02-still limited 02/21-cont limitation w/pt noting nausea w/ext & L rot LTG Duration 12/24 3 Short Term Goal (STG) Pt will perform progressive HEP with I including postural, flexibility, balance, LE strengthening, breathing, and VOR exercises to decrease symptoms and improve balance by 08/31/21. 07/03/21: Pt is performing band exercises for legs, back plastic fixture builder self-massage, breathing, walking the dog, pelvic realignment exercises and balance exercises in the hallway. She is doing exercises 1-2x/wk. 3-pt walking and doing exercises at home plan to update and progress program 11/28-advancing based on cont deficits STG Duration achieved and progressing as able Pigs Feet Cleaner Goal (LTG) Pt will have at least 4+/5 all LE MMT 02/20-abd, IR still limited but overall much improved 05/17-slowly improved 07/16-no major change 10/02-abd only one not met 02/21-n/t LTG Duration 05/10 2 Pigs Feet Cleaner Goal (LTG) adjusted goal: to Pt will report ETIENNE no greater than 10/08 10/02-pt reports no recent change w/ETIENNE 02/20-ETIENNE 02/07 recently LTG Duration 05/15 1 Impairment balance Nursing Home Goal (LTG) Pt will be able to do SLS B 5 sec 10/02-achieved L but limited R still 02/20-6 sec R, 2 sec L LTG Duration 05/15/23 Assessment Summary Assessment Pt started w/good SB B and still nausea w/fwd lfex and ext. She had 90% R rot and about 60% L rot but L rot improved to 95% after manual care w/less discomfort. Pt able to dec nausea if does chin tuck and more segmental flex of neck w/looking down. Inc time needed for new exercise edu and w/addition of Habd w/wall posture Physical Therapy Plan Frequency and Duration Frequency of Treatment 1x/wk Duration of treatment (weeks) 12 Plan of Care Start Date 02/20/23 Plan of Care End Date 05/15/23 Next Visit Focus/Plan Next Note Type Treatment Note Next Visit Plan work on neck and cranial mobility to dec symptoms, cont vestibular care to dec dizziness symptoms
--- NOTE | 2023-03-25 15:39 | PT.OTN ---
Current Diagnoses Moyamoya disease (03/25/23) Headache, unspecified (03/25/23) Weakness (03/25/23) Physical Therapy Treatment Note PT-OP-A Visit Information Start: 08/22/20 07:37 Freq: Status: Active Protocol: Document 03/25/23 14:45 DCW (Rec: 03/25/23 15:39 DCW [id number]) Out-Patient Physical Therapy Visit Information Visit Information Visit Type Treatment Note Visit Start Time 14:45 Visit Stop Time 15:30 Total Visit Minutes 45 Visit Number Number of FUNERAL PRE NEED CONSULTANT Visits 0 PT-OP-B Current Condition Start: 08/22/20 07:37 Freq: Status: Active Protocol: Document 08/23/20 12:13 MB (Rec: 08/23/20 13:04 MB [id number]) Current Condition History of Current Condition Onset Date Surgery 07/27/20 Current Complaints Dizziness, light-headedness, ETIENNE and left leg pain and imbalance History of Current Condition 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 Pt had fall and concussion then as passed out. In PMH, pt writes back pain, superficial blood clot right LE, ulcers. Current complaints include: dizziness when active (walking and movements of neck), decreased processing words, headaches managed by medications, trouble opening right side of jaw post-op, neck pain and stiffness. Pt denies falls since surgery. Pt is wearing an ice hat. Pt reports pain right side of head, left jaw and left thigh. ETIENNE pain gets up to 5/10 with medication. Her neck pain is 4 /10. Left leg pain gets up to 7/10. She reports left leg pain as deep and shooting. Pt reports pain with walking on left leg. Pt reports that her left leg feels weak. The Cymbalta helps with nerve pain . Pt reports that her right eye brown does not yet move after surgery and the right side of her head is swollen. Mother states that pt still does not have any appetite. Treatment Goals Patient/Caregiver Goals Decrease pain, increase balance and leg strength. PT-OP-C Subjective Start: 08/22/20 07:37 Freq: Status: Active Protocol: Document 03/25/23 14:45 DCW (Rec: 03/25/23 15:39 DCW [id number]) OP-PT Subjective Patient Comments Patient Comments Pt been reluctantly performing some of her vestibular exercises occasionally, but not really. Does admit she is dizzy less often, and if she does get dizzy, it is less severe and passes more quickly than it used to. PT-OP-D Balance Start: 08/22/20 07:37 Freq: Status: Active Protocol: Document 02/20/23 16:56 [facility] (Rec: 02/20/23 18:27 [facility] [id number]) Balance Tests Single Limb Standing Single Limb- Right 6 Single Limb- Left 2 PT-OP-E Functional Tests Start: 08/30/21 14:38 Freq: Status: Active Protocol: Document 02/20/23 16:56 [facility] (Rec: 02/20/23 18:27 [facility] [id number]) Functional Tests 6 Minute Walk Test Distance 1493ft Device Used none Comments after 4 min inc LOB PT-OP-G Mobility & Gait Start: 08/22/20 07:37 Freq: Status: Active Protocol: Document 08/23/20 12:13 MB (Rec: 08/23/20 14:14 MB [id number]) OP Gait Assessment Gait Gait Assistance Required: Independent Distance (Feet) 50 Able to Maintain Weight Bearing Status Yes During Gait Assistive Devices Assistive Device None Orthotic/Prosthetic Devices or Brace: No Gait Deviations General Gait Pattern Decreased Stride Length Factors Limiting Gait Function Factors Limiting Gait Function Decreased Strength,Pain,Poor Balance Comments Gait Comments Pt favors the left leg, looks down at the floor, presents with hesitancy with gait PT-OP-H Neuro Start: 08/22/20 07:37 Freq: Status: Active Protocol: Document 08/23/20 12:13 MB (Rec: 08/23/20 14:14 MB [id number]) Sensation Evaluation Comments Summary Comments Pt reports numbness right temporal area and eye brow Coordination Evaluation Upper Extremity Tests Right Finger to Nose Test Normal Performance Pronation/Supination Test Normal Performance Left Finger to Nose Test Normal Performance Pronation/Supination Test Minimal Impairment Comments Coordination Comments Right toe tapping over opposite foot normal x5 reps, rapid and accurate. Slow with left toe tapping over right foot and inaccurate, given for exercise for home: 10 reps every hour when sitting Vital Signs Pulse 1 Pulse at Rest (bpm) 77 Pulse Assessment Method Cuff Blood Pressure Sitting Blood Pressure (90/60-120/80 mmHg) 132/90 H Blood Pressure Source Automatic Cuff,Right Upper Extremity Comments Vital Signs Comments Doctor note for BP written under precautions, pt is in recommended range today PT-OP-J Posture/Palpation/Skin Start: 08/22/20 07:37 Freq: Status: Active Protocol: Document 07/16/22 17:17 [facility] (Rec: 07/16/22 17:17 [facility] [id number]) Posture Evaluation [facility] Postural Classification System Vertebral Compression Test 3 Lumbar Protective Mechanism Left AP 1 Lumbar Protective Mechanism Right AP 2 Lumbar Protective Mechanism Left PA 2 Lumbar Protective Mechanism Right PA 1 PT-OP-K Range of Motion Start: 08/22/20 07:37 Freq: Status: Active Protocol: Document 02/20/23 16:56 [facility] (Rec: 02/21/23 18:15 [facility] [id number]) Cervical Spine Range of Motion Cervical Spine Active Degrees Flexion 49 Extension 35 Rotation Left 52 Rotation Right 68 Lateral Flexion Left 40 Lateral Flexion Right 45 Comments mild nausea w/ext & L rot; pain w/L rot & SB &ext PT-OP-M Strength Start: 08/22/20 07:37 Freq: Status: Active Protocol: Document 10/02/22 14:39 [facility] (Rec: 10/02/22 16:41 [facility] [id number]) Hip Strength Hip Manual Muscle Testing Left Flexion (L2) 4+ Good+ Extension (S1) 4+ Good+ Abduction 4 Good Adduction 5 Normal External Rotation 5 Normal Internal Rotation 4+ Good+ Right Flexion (L2) 5 Normal Extension (S1) 5 Normal Abduction 5 Normal Adduction 5 Normal External Rotation 5 Normal Internal Rotation 5 Normal Knee Strength Knee Manual Muscle Testing Left Flexion (S2) 5 Normal Extension (L3) 5 Normal Comments Pt sitting Right Flexion (S2) 5 Normal Extension (L3) 5 Normal Comments Pt sitting Ankle/Foot Strength Ankle and Foot Manual Muscle Testing Left Dorsiflexion (L4) 5 Normal Plantarflexion (S1) 5 Normal Comments 20 heel raises Right Dorsiflexion (L4) 5 Normal Plantarflexion (S1) 5 Normal Comments 20 heel raises PT-OP-O Vestibular Start: 08/22/20 07:37 Freq: Status: Active Protocol: Document 11/20/22 14:00 DCW (Rec: 11/20/22 14:45 DCW [id number]) Vestibular Assessment Visual Testing Smooth Pursuits Horizontal WNL Smooth Pursuits Vertical WNL Saccades Horizontal WNL Heave Test Negative Thrust Head Negative Convergence Test 10 cm DVA (Line Degradation) 3 Vestibulo-Ocular Reflex (VOR1) Nausea PT-OP-Q Treatments Start: 08/22/20 07:37 Freq: Status: Active Protocol: Document 03/25/23 14:45 DCW (Rec: 03/25/23 15:39 DCW [id number]) Neuro Re-Education Treatment Vestibular Rehabilitation Pencil Push-ups Details Pencil Push-ups Huntley Board Details Huntley Board, EO/EC Background Blue foam Disco ball Details Disco ball Position seated Comments Tolerated much longer prior to nausea with no linger effects after stopping, but very poor balance during, multiple times therapist required support to prevent retro fall Corrective Saccades Details Eyes, then head to target Distance From Target Arm's length Speed as tolerated Position seated Comments Metronome 90 bpm X1 Viewing Details Head turns with static target Distance From Target Arm's length Speed as tolerated Position seated Comments Metronome 90->110 bpm VOR Retraining Details Head and target move in same direction Distance From Target Arm's length Speed as tolerated Position seated Comments Metronome 90 bpm PT-OP-R Modalities Start: 08/22/20 07:37 Freq: Status: Active Protocol: Document 09/10/22 13:00 [facility] (Rec: 09/10/22 14:23 [facility] [id number]) Hot Pack/Cold Pack Treatment Cold Pack Location LS Patient Position Hooklying Treatment Duration (minutes) 10 PT-OP-T Assessment and Plan Start: 08/22/20 07:37 Freq: Status: Active Protocol: Document 03/25/23 14:45 DCW (Rec: 03/25/23 15:39 [facility] [id number]) Physical Therapy Assessment Goals 5 Impairment activity tolerance Impairment can only walk 1 block to about 3/4mile a day w/1 seated break (depends on day); or do 2 miles w/throttle use on bike beofre exhausted Short Term Goal (STG) Pt will gait train at least 1650 feet in 6 minutes without AD and no LOB or dragging finger on the wall for steadying assist by 08/31/21. 07/03/21: Pt gait trains 1654 feet in 6 minutes with occ left index finger dragging along wall to assist with balance with anti-clockwise gait. 06/02/21: Pt gait trains 1541 feet in 6 minutes, walking anti-clockwise. Twice, she rubs left hand on corner when turning to the left in the hallway. She has increased arms out and right arm swing and left LE does not move as well motor-viera compared to the right and requires effort to clear foot each time. Pt is wearing short wellingtons and this may cause exaggeration of lifting foot, requiring more effort which shows as such on the left. 03/29/21: Pt gait trains 1531 feet in 6 minutes, which is 3 feet further than when last tested in October 202008/30-1431ft 11/28-1481ft 02/20/22-1523ft touched wall 1x & mild instability throughout 05/07-1530 w/less notable instability- only 2x slight uneven movement of trunk 07/16-occ touching of wall 1522ft 10/02-1500ft (likely dec some d/ t change in set up so required pt to turn around more often) ; no touching wall 02/20-149 with 1 touch to wall. LOB after 4 min STG Duration 04/14 Electrical Journeyman Goal (LTG) Pt will report inc tolerance w /activity in order to increase her ability to walk w/max walk being at least 1 mile w/ no more than 1 seated rest break LTG Duration 05/15 4 Short Term Goal (STG) Pt will be able to throw the ball for her dog for 10-15 min w/o inc neck pain ggreater than 08/10 STG Duration 04/14 Electrical Journeyman Goal (LTG) Pt will be able to do all ROM of neck WNL w/o inc pain or feeling of nausea or dizziness 10/02-still limited 02/21-cont limitation w/pt noting nausea w/ext & L rot LTG Duration 12/24 3 Short Term Goal (STG) Pt will perform progressive HEP with I including postural, flexibility, balance, LE strengthening, breathing, and VOR exercises to decrease symptoms and improve balance by 08/31/21. 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 She is doing exercises 1-2x/wk. 08/30-pt walking and doing exercises at home plan to update and progress program 11/28-advancing based on cont deficits STG Duration achieved and progressing as able Fdc Goal (LTG) Pt will have at least 4+/5 all LE MMT 02/20-abd, IR still limited but overall much improved 05/17-slowly improved 07/16-no major change 10/02-abd only one not met 02/21-n/t LTG Duration 05/10 2 Electrical Journeyman Goal (LTG) adjusted goal: to Pt will report ETIENNE no greater than 10/08 10/02-pt reports no recent change w/ETIENNE 02/20-ETIENNE 02/07 recently LTG Duration 05/15 1 Impairment balance Electrical Journeyman Goal (LTG) Pt will be able to do SLS B 5 sec 10/02-achieved L but limited R still 02/20-6 sec R, 2 sec L LTG Duration 05/15/23 Assessment Summary Assessment Pt tolerating vestibular and oculomotor challenges much better today, able to tolerate more difficult challenges for a longer period of time with a faster recovery time. Pt still struggles significantly with righting reflexes. Standing on foam, pt exhibits minimal hip or step strategies , and just starts to fall, most often in a retro direction with little to no response. Physical Therapy Plan Frequency and Duration Frequency of Treatment 1x/wk Duration of treatment (weeks) 12 Plan of Care Start Date 02/20/23 Plan of Care End Date 05/15/23 Next Visit Focus/Plan Next Note Type Treatment Note Next Visit Plan work on neck and cranial mobility to dec symptoms, cont vestibular care to dec dizziness symptoms
--- NOTE | 2023-04-17 14:45 | PT.OTN ---
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) Headache, unspecified (04/17/23) Weakness (04/17/23) Physical Therapy Treatment Note PT-OP-A Visit Information Start: 08/22/20 07:37 Freq: Status: Active Protocol: Document 04/17/23 13:43 [facility] (Rec: 04/17/23 14:44 [facility] [id number]) Out-Patient Physical Therapy Visit Information Visit Information Visit Type Progress Note Visit Start Time 13:37 Visit Stop Time 14:17 Total Visit Minutes 40 Visit Number [id number] Number of REHABILITATION THERAPIST Visits 0 PT-OP-B Current Condition Start: 08/22/20 07:37 Freq: Status: Active Protocol: Document 08/23/20 12:13 [facility] (Rec: 08/23/20 13:04 [facility] [id number]) Current Condition History of Current Condition Onset Date Surgery 07/27/20 Current Complaints Dizziness, light-headedness, ETIENNE and left leg pain and imbalance History of Current Condition 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 Pt had fall and concussion then as passed out. In PMH, pt writes back pain, superficial blood clot right LE, ulcers. Current complaints include: dizziness when active (walking and movements of neck), decreased processing words, headaches managed by medications, trouble opening right side of jaw post-op, neck pain and stiffness. Pt denies falls since surgery. Pt is wearing an ice hat. Pt reports pain right side of head, left jaw and left thigh. ETIENNE pain gets up to 5/10 with medication. Her neck pain is 4 /10. Left leg pain gets up to 7/10. She reports left leg pain as deep and shooting. Pt reports pain with walking on left leg. Pt reports that her left leg feels weak. The Cymbalta helps with nerve pain . Pt reports that her right eye brown does not yet move after surgery and the right side of her head is swollen. Mother states that pt still does not have any appetite. Treatment Goals Patient/Caregiver Goals Decrease pain, increase balance and leg strength. PT-OP-C Subjective Start: 08/22/20 07:37 Freq: Status: Active Protocol: Document 04/17/23 13:43 [facility] (Rec: 04/17/23 14:44 [facility] [id number]) OP-PT Subjective Patient Comments Patient Comments Pt reports took 2 days to recover from vestib appt. PT-OP-D Balance Start: 08/22/20 07:37 Freq: Status: Active Protocol: Document 02/20/23 16:56 [facility] (Rec: 02/20/23 18:27 [facility] [id number]) Balance Tests Single Limb Standing Single Limb- Right 6 Single Limb- Left 2 PT-OP-E Functional Tests Start: 08/30/21 14:38 Freq: Status: Active Protocol: Document 02/20/23 16:56 [facility] (Rec: 02/20/23 18:27 [facility] [id number]) Functional Tests 6 Minute Walk Test Distance 1493ft Device Used none Comments after 4 min inc LOB PT-OP-G Mobility & Gait Start: 08/22/20 07:37 Freq: Status: Active Protocol: Document 08/23/20 12:13 [facility] (Rec: 08/23/20 14:14 [facility] [id number]) OP Gait Assessment Gait Gait Assistance Required: Independent Distance (Feet) 50 Able to Maintain Weight Bearing Status Yes During Gait Assistive Devices Assistive Device None Orthotic/Prosthetic Devices or Brace: No Gait Deviations General Gait Pattern Decreased Stride Length Factors Limiting Gait Function Factors Limiting Gait Function Decreased Strength,Pain,Poor Balance Comments Gait Comments Pt favors the left leg, looks down at the floor, presents with hesitancy with gait PT-OP-H Neuro Start: 08/22/20 07:37 Freq: Status: Active Protocol: Document 08/23/20 12:13 [facility] (Rec: 08/23/20 14:14 [facility] [id number]) Sensation Evaluation Comments Summary Comments Pt reports numbness right temporal area and eye brow Coordination Evaluation Upper Extremity Tests Right Finger to Nose Test Normal Performance Pronation/Supination Test Normal Performance Left Finger to Nose Test Normal Performance Pronation/Supination Test Minimal Impairment Comments Coordination Comments Right toe tapping over opposite foot normal x5 reps, rapid and accurate. Slow with left toe tapping over right foot and inaccurate, given for exercise for home: 10 reps every hour when sitting Vital Signs Pulse 1 Pulse at Rest (bpm) 77 Pulse Assessment Method Cuff Blood Pressure Sitting Blood Pressure (90/60-120/80 mmHg) 132/90 H Blood Pressure Source Automatic Cuff,Right Upper Extremity Comments Vital Signs Comments Doctor note for BP written under precautions, pt is in recommended range today PT-OP-J Posture/Palpation/Skin Start: 08/22/20 07:37 Freq: Status: Active Protocol: Document 07/16/22 17:17 [facility] (Rec: 07/16/22 17:17 [facility] [id number]) Posture Evaluation [facility] Postural Classification System Vertebral Compression Test 3 Lumbar Protective Mechanism Left AP 1 Lumbar Protective Mechanism Right AP 2 Lumbar Protective Mechanism Left PA 2 Lumbar Protective Mechanism Right PA 1 PT-OP-K Range of Motion Start: 08/22/20 07:37 Freq: Status: Active Protocol: Document 04/17/23 13:43 [facility] (Rec: 04/17/23 14:44 [facility] [id number]) Cervical Spine Range of Motion Cervical Spine Active Degrees Flexion 50 Extension 35 Rotation Left 59 Rotation Right 69 Lateral Flexion Left 46 Lateral Flexion Right 49 Comments nausea w/flex and ext; pain w/ L rot PT-OP-M Strength Start: 08/22/20 07:37 Freq: Status: Active Protocol: Document 04/17/23 13:43 [facility] (Rec: 04/17/23 14:44 [facility] [id number]) Hip Strength Hip Manual Muscle Testing Left Flexion (L2) 4+ Good+ Extension (S1) 4+ Good+ Abduction 4+ Good+ Adduction 5 Normal External Rotation 5 Normal Internal Rotation 5 Normal Right Flexion (L2) 5 Normal Extension (S1) 5 Normal Abduction 5 Normal Adduction 5 Normal External Rotation 5 Normal Internal Rotation 5 Normal Knee Strength Knee Manual Muscle Testing Left Flexion (S2) 5 Normal Extension (L3) 5 Normal Comments Pt sitting Right Flexion (S2) 5 Normal Extension (L3) 5 Normal Comments Pt sitting Ankle/Foot Strength Ankle and Foot Manual Muscle Testing Left Dorsiflexion (L4) 5 Normal Plantarflexion (S1) 5 Normal Comments 20 heel raises Right Dorsiflexion (L4) 5 Normal Plantarflexion (S1) 5 Normal Comments 20 heel raises PT-OP-O Vestibular Start: 08/22/20 07:37 Freq: Status: Active Protocol: Document 11/20/22 14:00 [facility] (Rec: 11/20/22 14:45 [facility] [id number]) Vestibular Assessment Visual Testing Smooth Pursuits Horizontal WNL Smooth Pursuits Vertical WNL Saccades Horizontal WNL Heave Test Negative Thrust Head Negative Convergence Test 10 cm DVA (Line Degradation) 3 Vestibulo-Ocular Reflex (VOR1) Nausea PT-OP-Q Treatments Start: 08/22/20 07:37 Freq: Status: Active Protocol: Document 04/17/23 13:43 [facility] (Rec: 04/17/23 14:44 [facility] [id number]) Manual Therapy Treatment Soft Tissue Mobilization cervical Body Location B UT & scalenes Mobilization Type Rolling,Strumming,Sustained Pressure Comments sup w/rot & s/l w/L scap dep Joint Mobilizations AC Joint L ant clavicle fm s/l w/dep Comments improved cervical rot to full w/o dizziness after all manual thoracic Comments T1-3 transverse R FM ribs Comments rib 6 -7 caudal w/ant elevation FM rib 1-2 caudal FM PT-OP-R Modalities Start: 08/22/20 07:37 Freq: Status: Active Protocol: Document 09/10/22 13:00 [facility] (Rec: 09/10/22 14:23 [facility] [id number]) Hot Pack/Cold Pack Treatment Cold Pack Location LS Patient Position Hooklying Treatment Duration (minutes) 10 PT-OP-T Assessment and Plan Start: 08/22/20 07:37 Freq: Status: Active Protocol: Document 04/17/23 13:43 [facility] (Rec: 04/17/23 14:44 [facility] [id number]) Physical Therapy Assessment Goals activity tolerance Impairment Pt requires a nap after max 4 hours of being awake/up on a good day. On a bad day, 2 hours awake prior to nap [facility]iary Goal (LTG) Pt will be able to be awake for 3-5 hours (depending on good vs bad day) prior to requriing nap LTG Duration 07/10/23 dizziness [facility] Goal (LTG) .[employer] Improve convergence test to 5cm in order to dec subjective c/o dizziness LTG Duration 07/10/23 5 Impairment activity tolerance Impairment can only walk 1 block to about 3/4mile a day w/1 seated break (depends on day); or do 2 miles w/throttle use on bike beofre exhausted Short Term Goal (STG) Pt will gait train at least 1650 feet in 6 minutes without AD and no LOB or dragging finger on the wall for steadying assist by 08/31/21. 07/03/21: Pt gait trains 1654 feet in 6 minutes with occ left index finger dragging along wall to assist with balance with anti-clockwise gait. 06/02/21: Pt gait trains 1541 feet in 6 minutes, walking anti-clockwise. Twice, she rubs left hand on corner when turning to the left in the hallway. She has increased arms out and right arm swing and left LE does not move as well motor-viera compared to the right and requires effort to clear foot each time. Pt is wearing short wellingtons and this may cause exaggeration of lifting foot, requiring more effort which shows as such on the left. 03/29/21: Pt gait trains 1531 feet in 6 minutes, which is 3 feet further than when last tested in October 202008/30-1431ft 11/28-148ft 02/20/22-1523ft touched wall 1x & mild instability throughout 05/07-1530ft w/less notable instability- only 2x slight uneven movement of trunk 07/16-occ touching of wall 1522ft 10/02-1500ft (likely dec some d/ t change in set up so required pt to turn around more often) ; no touching wall 02/20-1493ft with 1 touch to wall. LOB after 4 min STG Duration DC this goal [facility] Goal (LTG) Pt will report inc tolerance w /activity in order to increase her ability to walk w/max walk being at least 1 mile w/ no more than 1 seated rest break 04/17-always take 1 break but occ needs more LTG Duration 07/10 4 Short Term Goal (STG) Pt will be able to throw the ball for her dog for 10-15 min w/o inc neck pain ggreater than 08/10 04/17-frisbee more recently and it makes neck feel stiff which makes her head feel pressured like she isn't getting enough blood to her head. 01/07 if late in the day but 08/10 in earlier in the day STG Duration 05/30 [facility] Goal (LTG) Pt will be able to do all ROM of neck WNL w/o inc pain or feeling of nausea or dizziness 10/02-still limited 02/21-cont limitation w/pt noting nausea w/ext & L rot 04/17-still w/flex and ext LTG Duration 07/10 3 Short Term Goal (STG) Pt will perform progressive HEP with I including postural, flexibility, balance, LE strengthening, breathing, and VOR exercises to decrease symptoms and improve balance by 08/31/21. 07/03/21: Pt is performing band exercises for legs, back hand edger self-massage, breathing, walking the dog, pelvic realignment exercises and balance exercises in the hallway. She is doing exercises 1-2x/wk. 08/30-pt walking and doing exercises at home plan to update and progress program 11/28-advancing based on cont deficits STG Duration achieved and progressing as able [employer] Goal (LTG) Pt will have at least 4+/5 all LE MMT 02/20-abd, IR still limited but overall much improved 05/17-slowly improved 07/16-no major change 10/02-abd only one not met 02/21-n/t LTG Duration achieved 04/17 2 [facility] Goal (LTG) adjusted goal: to Pt will report ETIENNE no greater than 10/08 10/02-pt reports no recent change w/ETIENNE 02/20-ETIENNE 02/07 recently 04/17-recent ETIENNE after last vestibular appt 01/07; prior to vestib appt 11/07 were also less frequent LTG Duration 07/10/23 1 Impairment balance [employer] Goal (LTG) Pt will be able to do SLS B 5 sec 10/02-achieved L but limited R still 02/20-6 sec R, 2 sec L LTG Duration achieved 6 sec on R, 5 sec L Assessment Summary Assessment Pt cont to have vestibular deficits and cervical pain that limit her activity tolerance. She demonstrated much improved SL balance on L and improved overall LLE strength. She is able to more often do 1 mile walk w/ only 1 seated rest break now. She tolerated vestibular and oculomotor challenges more on last visit and will transition to PT w/focus on vestibular PT over the next couple months as this likely will make the most progress towards her goals with this. Cont PT to focus on cont activity tolerance. Physical Therapy Plan Frequency and Duration Frequency of Treatment 1x/Week Duration of treatment (weeks) 12 Plan of Care Start Date 04/17/23 Plan of Care End Date 07/10/23 Therapeutic Interventions Therapeutic Interventions Balance Training,Canalithic Repositioning,Coordination Training,Gait Training,Home Exercise Program,Joint Mobilizations,Manual Therapy, Neuromuscular Re-education, Patient/Caregiver Education, Self-Care/Home Management, Sensory Integration,Soft Tissue Mobilization,Taping, Therapeutic Activities, Therapeutic Exercises, Vestibular Rehabilitation Modalities Cold Pack/Ice Massage,Electric Stimulation,Hot Packs, Ultrasound Next Visit Focus/Plan Next Note Type Treatment Note Next Visit Plan work on neck and cranial mobility to dec symptoms, cont vestibular care to dec dizziness symptoms
--- NOTE | 2023-04-17 14:45 | PT.OPPOC ---
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) Headache, unspecified (04/17/23) Weakness (04/17/23) Visit Care Team Role Provider Type Christen Figueroa PA-C Attending Provider Non-Staff Primary Care Provider Referring Provider Specialty: Family Practice Address: [address] [place] [address], [address], [place], [address] Email: Plan Of Care PT-OP-T Assessment and Plan Start: 08/22/20 07:37 Freq: Status: Active Protocol: Document 04/17/23 13:43 [facility] (Rec: 04/17/23 14:44 [facility] [id number]) Physical Therapy Assessment Goals activity tolerance Impairment Pt requires a nap after max 4 hours of being awake/up on a good day. On a bad day, 2 hours awake prior to nap Senior Biostatistician/Group Leader Goal (LTG) Pt will be able to be awake for 3-5 hours (depending on good vs bad day) prior to requriing nap LTG Duration 07/10/23 dizziness [facility] Goal (LTG) Improve convergence test to 5cm in order to dec subjective c/o dizziness LTG Duration 07/10/23 5 Impairment activity tolerance Impairment can only walk 1 block to about 3/4mile a day w/1 seated break (depends on day); or do 2 miles w/throttle use on bike beofre exhausted Short Term Goal (STG) Pt will gait train at least 1650 feet in 6 minutes without AD and no LOB or dragging finger on the wall for steadying assist by 08/31/21. 07/03/21: Pt gait trains 1654 feet in 6 minutes with occ left index finger dragging along wall to assist with balance with anti-clockwise gait. 06/02/21: Pt gait trains 1541 feet in 6 minutes, walking anti-clockwise. Twice, she rubs left hand on corner when turning to the left in the hallway. She has increased arms out and right arm swing and left LE does not move as well motor-viera compared to the right and requires effort to clear foot each time. Pt is wearing short wellingtons and this may cause exaggeration of lifting foot, requiring more effort which shows as such on the left. 03/29/21: Pt gait trains 1531 feet in 6 minutes, which is 3 feet further than when last tested in October 202008/30-1431ft 11/28-1481ft 02/20/22-1523ft touched wall 1x & mild instability throughout 05/07-1530ft w/less notable instability- only 2x slight uneven movement of trunk 07/16-occ touching of wall 1522ft 10/02-1500ft (likely dec some d/ t change in set up so required pt to turn around more often) ; no touching wall 02/20- with 1 touch to wall. LOB after 4 min STG Duration DC this goal Senior Biostatistician/Group Leader Goal (LTG) Pt will report inc tolerance w /activity in order to increase her ability to walk w/max walk being at least 1 mile w/ no more than 1 seated rest break 04/17-always take 1 break but occ needs more LTG Duration 07/10 4 Short Term Goal (STG) Pt will be able to throw the ball for her dog for 10-15 min w/o inc neck pain ggreater than 08/10 04/17-bee more recently and it makes neck feel stiff which makes her head feel pressured like she isn't getting enough blood to her head. 01/07 if late in the day but 10 in earlier in the day STG Duration 05/30 [facility] Goal (LTG) Pt will be able to do all ROM of neck WNL w/o inc pain or feeling of nausea or dizziness 10/02-still limited 02/21-cont limitation w/pt noting nausea w/ext & L rot 04/17-still w/flex and ext LTG Duration 07/10 3 Short Term Goal (STG) Pt will perform progressive HEP with I including postural, flexibility, balance, LE strengthening, breathing, and VOR exercises to decrease symptoms and improve balance by 08/31/21. 07/03/21: Pt is performing band exercises for legs, back principal cloud architect self-massage, breathing, walking the dog, pelvic realignment exercises and balance exercises in the hallway. She is doing exercises 1-2x/wk. 3/2-pt walking and doing exercises at home plan to update and progress program 11/28-advancing based on cont deficits STG Duration achieved and progressing as able Senior Biostatistician/Group Leader Goal (LTG) Pt will have at least 4+/5 all LE MMT 02/20-abd, IR still limited but overall much improved 05/17-slowly improved 07/16-no major change 10/02-abd only one not met 02/21-n/t LTG Duration achieved 04/17 2 [facility] Goal (LTG) adjusted goal: to Pt will report ETIENNE no greater than 10/08 10/02-pt reports no recent change w/ETIENNE 02/20-ETIENNE 02/07 recently 04/17-recent ETIENNE after last vestibular appt 01/07; prior to vestib appt 11/07 were also less frequent LTG Duration 07/10/23 1 Impairment balance Senior Biostatistician/Group Leader Goal (LTG) Pt will be able to do SLS B 5 sec 10/02-achieved L but limited R still 02/20-6 sec R, 2 sec L LTG Duration achieved 6 sec on R, 5 sec L Assessment Summary Assessment Pt cont to have vestibular deficits and cervical pain that limit her activity tolerance. She demonstrated much improved SL balance on L and improved overall LLE strength. She is able to more often do 1 mile walk w/ only 1 seated rest break now. She tolerated vestibular and oculomotor challenges more on last visit and will transition to PT w/focus on vestibular PT over the next couple months as this likely will make the most progress towards her goals with this. Cont PT to focus on cont activity tolerance. Physical Therapy Plan Frequency and Duration Frequency of Treatment 1x/Week Duration of treatment (weeks) 12 Plan of Care Start Date 04/17/23 Plan of Care End Date 07/10/23 Therapeutic Interventions Therapeutic Interventions Balance Training,Canalithic Repositioning,Coordination Training,Gait Training,Home Exercise Program,Joint Mobilizations,Manual Therapy, Neuromuscular Re-education, Patient/Caregiver Education, Self-Care/Home Management, Sensory Integration,Soft Tissue Mobilization,Taping, Therapeutic Activities, Therapeutic Exercises, Vestibular Rehabilitation Modalities Cold Pack/Ice Massage,Electric Stimulation,Hot Packs, Ultrasound Next Visit Focus/Plan Next Note Type Treatment Note Next Visit Plan work on neck and cranial mobility to dec symptoms, cont vestibular care to dec dizziness symptoms Plan of Care Dates Plan of Care Start Date 04/17/23 Plan of Care End Date 07/10/23 Electronically Signed by: Tanya Dhaliwal, PT 04/17/23 1445 If you are in agreement with this Plan of Care, please return a signed and dated copy. I have reviewed this Plan of Care and certify that the skilled therapy services above are required to meet the patient?s needs. Physician Signature Date Printed Name and Credentials Clinical Instructor Signature Printed Name and Credentials
--- NOTE | 2023-05-21 15:25 | PT.OTN ---
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) Headache, unspecified (05/21/23) Weakness (05/21/23) Physical Therapy Treatment Note PT-OP-A Visit Information Start: 08/22/20 07:37 Freq: Status: Active Protocol: Document 05/21/23 14:30 DCW (Rec: 05/21/23 15:25 DCW [id number]) Out-Patient Physical Therapy Visit Information Visit Information Visit Type Treatment Note Visit Start Time 14:30 Visit Stop Time 15:15 Total Visit Minutes 45 Visit Number Number of TRANSPORTATION BROKER Visits 0 PT-OP-B Current Condition Start: 08/22/20 07:37 Freq: Status: Active Protocol: Document 08/23/20 12:13 MB (Rec: 08/23/20 13:04 MB [id number]) Current Condition History of Current Condition Onset Date Surgery 07/27/20 Current Complaints Dizziness, light-headedness, ETIENNE and left leg pain and imbalance History of Current Condition 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 Pt had fall and concussion then as passed out. In PMH, pt writes back pain, superficial blood clot right LE, ulcers. Current complaints include: dizziness when active (walking and movements of neck), decreased processing words, headaches managed by medications, trouble opening right side of jaw post-op, neck pain and stiffness. Pt denies falls since surgery. Pt is wearing an ice hat. Pt reports pain right side of head, left jaw and left thigh. ETIENNE pain gets up to 5/10 with medication. Her neck pain is 4 /10. Left leg pain gets up to 7/10. She reports left leg pain as deep and shooting. Pt reports pain with walking on left leg. Pt reports that her left leg feels weak. The Cymbalta helps with nerve pain . Pt reports that her right eye brown does not yet move after surgery and the right side of her head is swollen. Mother states that pt still does not have any appetite. Treatment Goals Patient/Caregiver Goals Decrease pain, increase balance and leg strength. PT-OP-C Subjective Start: 08/22/20 07:37 Freq: Status: Active Protocol: Document 05/21/23 14:30 DCW (Rec: 05/21/23 15:25 DCW [id number]) OP-PT Subjective Patient Comments Patient Comments Recently just a little bit worse with the dizziness. Dizziness increases with movement when looking down or to the side. Neurologist ordered a vestibular test ( likely VNG) PT-OP-D Balance Start: 08/22/20 07:37 Freq: Status: Active Protocol: Document 02/20/23 16:56 LR (Rec: 02/20/23 18:27 [facility] [id number]) Balance Tests Single Limb Standing Single Limb- Right 6 Single Limb- Left 2 PT-OP-E Functional Tests Start: 08/30/21 14:38 Freq: Status: Active Protocol: Document 02/20/23 16:56 [facility] (Rec: 02/20/23 18:27 [facility] [id number]) Functional Tests 6 Minute Walk Test Distance 1493ft Device Used none Comments after 4 min inc LOB PT-OP-G Mobility & Gait Start: 08/22/20 07:37 Freq: Status: Active Protocol: Document 08/23/20 12:13 MB (Rec: 08/23/20 14:14 MB [id number]) OP Gait Assessment Gait Gait Assistance Required: Independent Distance (Feet) 50 Able to Maintain Weight Bearing Status Yes During Gait Assistive Devices Assistive Device None Orthotic/Prosthetic Devices or Brace: No Gait Deviations General Gait Pattern Decreased Stride Length Factors Limiting Gait Function Factors Limiting Gait Function Decreased Strength,Pain,Poor Balance Comments Gait Comments Pt favors the left leg, looks down at the floor, presents with hesitancy with gait PT-OP-H Neuro Start: 08/22/20 07:37 Freq: Status: Active Protocol: Document 08/23/20 12:13 MB (Rec: 08/23/20 14:14 MB [id number]) Sensation Evaluation Comments Summary Comments Pt reports numbness right temporal area and eye brow Coordination Evaluation Upper Extremity Tests Right Finger to Nose Test Normal Performance Pronation/Supination Test Normal Performance Left Finger to Nose Test Normal Performance Pronation/Supination Test Minimal Impairment Comments Coordination Comments Right toe tapping over opposite foot normal x5 reps, rapid and accurate. Slow with left toe tapping over right foot and inaccurate, given for exercise for home: 10 reps every hour when sitting Vital Signs Pulse 1 Pulse at Rest (bpm) 77 Pulse Assessment Method Cuff Blood Pressure Sitting Blood Pressure (90/60-120/80 mmHg) 132/90 H Blood Pressure Source Automatic Cuff,Right Upper Extremity Comments Vital Signs Comments Doctor note for BP written under precautions, pt is in recommended range today PT-OP-J Posture/Palpation/Skin Start: 08/22/20 07:37 Freq: Status: Active Protocol: Document 07/16/22 17:17 [facility] (Rec: 07/16/22 17:17 [facility] [id number]) Posture Evaluation Mihir Postural Classification System Vertebral Compression Test 3 Lumbar Protective Mechanism Left AP 1 Lumbar Protective Mechanism Right AP 2 Lumbar Protective Mechanism Left PA 2 Lumbar Protective Mechanism Right PA 1 PT-OP-K Range of Motion Start: 08/22/20 07:37 Freq: Status: Active Protocol: Document 04/17/23 13:43 [facility] (Rec: 04/17/23 14:44 [facility] [id number]) Cervical Spine Range of Motion Cervical Spine Active Degrees Flexion 50 Extension 35 Rotation Left 59 Rotation Right 69 Lateral Flexion Left 46 Lateral Flexion Right 49 Comments nausea w/flex and ext; pain w/ L rot PT-OP-M Strength Start: 08/22/20 07:37 Freq: Status: Active Protocol: Document 04/17/23 13:43 [facility] (Rec: 04/17/23 14:44 [facility] [id number]) Hip Strength Hip Manual Muscle Testing Left Flexion (L2) 4+ Good+ Extension (S1) 4+ Good+ Abduction 4+ Good+ Adduction 5 Normal External Rotation 5 Normal Internal Rotation 5 Normal Right Flexion (L2) 5 Normal Extension (S1) 5 Normal Abduction 5 Normal Adduction 5 Normal External Rotation 5 Normal Internal Rotation 5 Normal Knee Strength Knee Manual Muscle Testing Left Flexion (S2) 5 Normal Extension (L3) 5 Normal Comments Pt sitting Right Flexion (S2) 5 Normal Extension (L3) 5 Normal Comments Pt sitting Ankle/Foot Strength Ankle and Foot Manual Muscle Testing Left Dorsiflexion (L4) 5 Normal Plantarflexion (S1) 5 Normal Comments 20 heel raises Right Dorsiflexion (L4) 5 Normal Plantarflexion (S1) 5 Normal Comments 20 heel raises PT-OP-O Vestibular Start: 08/22/20 07:37 Freq: Status: Active Protocol: Document 11/20/22 14:00 DCW (Rec: 11/20/22 14:45 DCW [id number]) Vestibular Assessment Visual Testing Smooth Pursuits Horizontal WNL Smooth Pursuits Vertical WNL Saccades Horizontal WNL Heave Test Negative Thrust Head Negative Convergence Test 10 cm DVA (Line Degradation) 3 Vestibulo-Ocular Reflex (VOR1) Nausea PT-OP-Q Treatments Start: 08/22/20 07:37 Freq: Status: Active Protocol: Document 05/21/23 14:30 DCW (Rec: 05/21/23 15:25 DCW [id number]) Neuro Re-Education Treatment Vestibular Rehabilitation Pencil Push-ups Details Pencil Push-ups Laser Details VOR training Comments Cursive name writing with laser over floral board, head turns to metronome (horiz 50bpm, vert 50->70 bpm), maze [place] Board Details [place] Board, EO/EC Comments Blue Foam Disco ball Details Disco ball Position Standing on Blue foam, Sitting EOB Comments Poor balance during, multiple times therapist required support to prevent retro fall X1 Viewing Details Head turns with static target Distance From Target Arm's length Speed as tolerated Position seated Comments Metronome 90->120 bpm PT-OP-R Modalities Start: 08/22/20 07:37 Freq: Status: Active Protocol: Document 09/10/22 13:00 [facility] (Rec: 09/10/22 14:23 [facility] [id number]) Hot Pack/Cold Pack Treatment Cold Pack Location LS Patient Position Hooklying Treatment Duration (minutes) 10 PT-OP-T Assessment and Plan Start: 08/22/20 07:37 Freq: Status: Active Protocol: Document 05/21/23 14:30 DCW (Rec: 05/21/23 15:25 DCW [id number]) Physical Therapy Assessment Goals activity tolerance Impairment Pt requires a nap after max 4 hours of being awake/up on a good day. On a bad day, 2 hours awake prior to nap Halfway Goal (LTG) Pt will be able to be awake for 3-5 hours (depending on good vs bad day) prior to requriing nap LTG Duration 07/10/23 dizziness [employer] Instructor Goal (LTG) Improve convergence test to 5cm in order to dec subjective c/o dizziness LTG Duration 07/10/23 5 Impairment activity tolerance Impairment can only walk 1 block to about 3/4mile a day w/1 seated break (depends on day); or do 2 miles w/throttle use on bike beofre exhausted Short Term Goal (STG) Pt will gait train at least 1650 feet in 6 minutes without AD and no LOB or dragging finger on the wall for steadying assist by 08/31/21. 07/03/21: Pt gait trains 1654 feet in 6 minutes with occ left index finger dragging along wall to assist with balance with anti-clockwise gait. 06/02/21: Pt gait trains 1541 feet in 6 minutes, walking anti-clockwise. Twice, she rubs left hand on corner when turning to the left in the hallway. She has increased arms out and right arm swing and left LE does not move as well motor-viera compared to the right and requires effort to clear foot each time. Pt is wearing short wellingtons and this may cause exaggeration of lifting foot, requiring more effort which shows as such on the left. 03/29/21: Pt gait trains 1531 feet in 6 minutes, which is 3 feet further than when last tested in October 202008/30-1431ft 11/28-1481ft 02/20/22-1523ft touched wall 1x & mild instability throughout 05/07-1530ft w/less notable instability- only 2x slight uneven movement of trunk 07/16-occ touching of wall 1522ft 10/02-1500ft (likely dec some d/ t change in set up so required pt to turn around more often) ; no touching wall 02/20-1493ft with 1 touch to wall. LOB after 4 min STG Duration DC this goal [employer] Instructor Goal (LTG) Pt will report inc tolerance w /activity in order to increase her ability to walk w/max walk being at least 1 mile w/ no more than 1 seated rest break 04/17-always take 1 break but occ needs more LTG Duration 07/10 4 Short Term Goal (STG) Pt will be able to throw the ball for her dog for 10-15 min w/o inc neck pain ggreater than 08/10 04/17-bee more recently and it makes neck feel stiff which makes her head feel pressured like she isn't getting enough blood to her head. 01/07 if late in the day but 210 in earlier in the day STG Duration 05/30 [employer] Instructor Goal (LTG) Pt will be able to do all ROM of neck WNL w/o inc pain or feeling of nausea or dizziness 10/02-still limited 02/21-cont limitation w/pt noting nausea w/ext & L rot 04/17-still w/flex and ext LTG Duration 07/10 3 Short Term Goal (STG) Pt will perform progressive HEP with I including postural, flexibility, balance, LE strengthening, breathing, and VOR exercises to decrease symptoms and improve balance by 08/31/21. 07/03/21: Pt is performing band exercises for legs, back offset platemaker self-massage, breathing, walking the dog, pelvic realignment exercises and balance exercises in the hallway. She is doing exercises 1-2x/wk. 08/30-pt walking and doing exercises at home plan to update and progress program 11/28-advancing based on cont deficits STG Duration achieved and progressing as able Halfway Goal (LTG) Pt will have at least 4+/5 all LE MMT 02/20-abd, IR still limited but overall much improved 05/17-slowly improved 07/16-no major change 10/02-abd only one not met 02/21-n/t LTG Duration achieved 04/17 2 [employer] Instructor Goal (LTG) adjusted goal: to Pt will report ETIENNE no greater than 10/08 10/02-pt reports no recent change w/ETIENNE 02/20-ETIENNE 02/07 recently 04/17-recent ETIENNE after last vestibular appt 01/07; prior to vestib appt 11/07 were also less frequent LTG Duration 07/10/23 1 Impairment balance [employer] Instructor Goal (LTG) Pt will be able to do SLS B 5 sec 10/02-achieved L but limited R still 02/20-6 sec R, 2 sec L LTG Duration achieved 6 sec on R, 5 sec L Assessment Summary Assessment Pt very nauseated by end of session today, had fairly strong negative response to all challenging vestibular exercises today. Discussed trying to do HEP more than 1x/ week, which she admits is her current compliance Physical Therapy Plan Frequency and Duration Frequency of Treatment 1x/Week Duration of treatment (weeks) 12 Plan of Care Start Date 04/17/23 Plan of Care End Date 07/10/23 Therapeutic Interventions Therapeutic Interventions Balance Training,Canalithic Repositioning,Coordination Training,Gait Training,Home Exercise Program,Joint Mobilizations,Manual Therapy, Neuromuscular Re-education, Patient/Caregiver Education, Self-Care/Home Management, Sensory Integration,Soft Tissue Mobilization,Taping, Therapeutic Activities, Therapeutic Exercises, Vestibular Rehabilitation Modalities Cold Pack/Ice Massage,Electric Stimulation,Hot Packs, Ultrasound Next Visit Focus/Plan Next Note Type Treatment Note Next Visit Plan work on neck and cranial mobility to dec symptoms, cont vestibular care to dec dizziness symptoms
--- NOTE | 2023-05-29 16:01 | PT.OTN ---
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) Headache, unspecified (05/29/23) Weakness (05/29/23) Physical Therapy Treatment Note PT-OP-A Visit Information Start: 08/22/20 07:37 Freq: Status: Active Protocol: Document 05/29/23 15:15 DCW (Rec: 05/29/23 16:01 DCW [id number]) Out-Patient Physical Therapy Visit Information Visit Information Visit Type Treatment Note Visit Start Time 14:30 Visit Stop Time 15:15 Total Visit Minutes 45 Visit Number 24 Number of SOUBRETTE Visits 0 PT-OP-B Current Condition Start: 08/22/20 07:37 Freq: Status: Active Protocol: Document 08/23/20 12:13 MB (Rec: 08/23/20 13:04 MB [id number]) Current Condition History of Current Condition Onset Date Surgery 07/27/20 Current Complaints Dizziness, light-headedness, ETIENNE and left leg pain and imbalance History of Current Condition 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 Pt had fall and concussion then as passed out. In PMH, pt writes back pain, superficial blood clot right LE, ulcers. Current complaints include: dizziness when active (walking and movements of neck), decreased processing words, headaches managed by medications, trouble opening right side of jaw post-op, neck pain and stiffness. Pt denies falls since surgery. Pt is wearing an ice hat. Pt reports pain right side of head, left jaw and left thigh. ETIENNE pain gets up to 5/10 with medication. Her neck pain is 4 /10. Left leg pain gets up to 7/10. She reports left leg pain as deep and shooting. Pt reports pain with walking on left leg. Pt reports that her left leg feels weak. The Cymbalta helps with nerve pain . Pt reports that her right eye brown does not yet move after surgery and the right side of her head is swollen. Mother states that pt still does not have any appetite. Treatment Goals Patient/Caregiver Goals Decrease pain, increase balance and leg strength. PT-OP-C Subjective Start: 08/22/20 07:37 Freq: Status: Active Protocol: Document 05/29/23 15:15 DCW (Rec: 05/29/23 16:01 DCW [id number]) OP-PT Subjective Patient Comments Patient Comments Pt notes she took ~2 days to recover after last visit, and then when she was feeling better, she took her dog for a walk on a trail, and I don't know what happened, but I kind of slid and fell backwards, but I didn't hit my head. PT-OP-D Balance Start: 08/22/20 07:37 Freq: Status: Active Protocol: Document 02/20/23 16:56 [facility] (Rec: 02/20/23 18:27 [facility] [id number]) Balance Tests Single Limb Standing Single Limb- Right 6 Single Limb- Left 2 PT-OP-E Functional Tests Start: 08/30/21 14:38 Freq: Status: Active Protocol: Document 02/20/23 16:56 [facility] (Rec: 02/20/23 18:27 [facility] [id number]) Functional Tests 6 Minute Walk Test Distance 1493ft Device Used none Comments after 4 min inc LOB PT-OP-G Mobility & Gait Start: 08/22/20 07:37 Freq: Status: Active Protocol: Document 08/23/20 12:13 MB (Rec: 08/23/20 14:14 MB [id number]) OP Gait Assessment Gait Gait Assistance Required: Independent Distance (Feet) 50 Able to Maintain Weight Bearing Status Yes During Gait Assistive Devices Assistive Device None Orthotic/Prosthetic Devices or Brace: No Gait Deviations General Gait Pattern Decreased Stride Length Factors Limiting Gait Function Factors Limiting Gait Function Decreased Strength,Pain,Poor Balance Comments Gait Comments Pt favors the left leg, looks down at the floor, presents with hesitancy with gait PT-OP-H Neuro Start: 08/22/20 07:37 Freq: Status: Active Protocol: Document 08/23/20 12:13 MB (Rec: 08/23/20 14:14 MB [id number]) Sensation Evaluation Comments Summary Comments Pt reports numbness right temporal area and eye brow Coordination Evaluation Upper Extremity Tests Right Finger to Nose Test Normal Performance Pronation/Supination Test Normal Performance Left Finger to Nose Test Normal Performance Pronation/Supination Test Minimal Impairment Comments Coordination Comments Right toe tapping over opposite foot normal x5 reps, rapid and accurate. Slow with left toe tapping over right foot and inaccurate, given for exercise for home: 10 reps every hour when sitting Vital Signs Pulse 1 Pulse at Rest (bpm) 77 Pulse Assessment Method Cuff Blood Pressure Sitting Blood Pressure (90/60-120/80 mmHg) 132/90 H Blood Pressure Source Automatic Cuff,Right Upper Extremity Comments Vital Signs Comments Doctor note for BP written under precautions, pt is in recommended range today PT-OP-J Posture/Palpation/Skin Start: 08/22/20 07:37 Freq: Status: Active Protocol: Document 07/16/22 17:17 [facility] (Rec: 07/16/22 17:17 [facility] [id number]) Posture Evaluation [facility] Postural Classification System Vertebral Compression Test 3 Lumbar Protective Mechanism Left AP 1 Lumbar Protective Mechanism Right AP 2 Lumbar Protective Mechanism Left PA 2 Lumbar Protective Mechanism Right PA 1 PT-OP-K Range of Motion Start: 08/22/20 07:37 Freq: Status: Active Protocol: Document 04/17/23 13:43 [facility] (Rec: 04/17/23 14:44 [facility] [id number]) Cervical Spine Range of Motion Cervical Spine Active Degrees Flexion 50 Extension 35 Rotation Left 59 Rotation Right 69 Lateral Flexion Left 46 Lateral Flexion Right 49 Comments nausea w/flex and ext; pain w/ L rot PT-OP-M Strength Start: 08/22/20 07:37 Freq: Status: Active Protocol: Document 04/17/23 13:43 [facility] (Rec: 04/17/23 14:44 [facility] [id number]) Hip Strength Hip Manual Muscle Testing Left Flexion (L2) 4+ Good+ Extension (S1) 4+ Good+ Abduction 4+ Good+ Adduction 5 Normal External Rotation 5 Normal Internal Rotation 5 Normal Right Flexion (L2) 5 Normal Extension (S1) 5 Normal Abduction 5 Normal Adduction 5 Normal External Rotation 5 Normal Internal Rotation 5 Normal Knee Strength Knee Manual Muscle Testing Left Flexion (S2) 5 Normal Extension (L3) 5 Normal Comments Pt sitting Right Flexion (S2) 5 Normal Extension (L3) 5 Normal Comments Pt sitting Ankle/Foot Strength Ankle and Foot Manual Muscle Testing Left Dorsiflexion (L4) 5 Normal Plantarflexion (S1) 5 Normal Comments 20 heel raises Right Dorsiflexion (L4) 5 Normal Plantarflexion (S1) 5 Normal Comments 20 heel raises PT-OP-O Vestibular Start: 08/22/20 07:37 Freq: Status: Active Protocol: Document 11/20/22 14:00 DCW (Rec: 11/20/22 14:45 DCW [id number]) Vestibular Assessment Visual Testing Smooth Pursuits Horizontal WNL Smooth Pursuits Vertical WNL Saccades Horizontal WNL Heave Test Negative Thrust Head Negative Convergence Test 10 cm DVA (Line Degradation) 3 Vestibulo-Ocular Reflex (VOR1) Nausea PT-OP-Q Treatments Start: 08/22/20 07:37 Freq: Status: Active Protocol: Document 05/29/23 15:15 DCW (Rec: 05/29/23 16:01 [facility] [id number]) Gym Equipment Shuttle Balance Red Details WBOS, Staggered, Lateral weight shift Neuro Re-Education Treatment Balance Activities Eyes Closed Details Ambulation /c EC Tandem Details Tandem Ambulation Step/[place] Details Step, [place], and Turn SLS Comments SLS bend down to touch cone with ball Vestibular Rehabilitation [place] Board Details [place] Board, EO/EC Comments Blue Foam Disco ball Details Disco ball Position Standing on Blue foam, Sitting EOB Comments Poor balance during, multiple times therapist required support to prevent retro fall PT-OP-R Modalities Start: 08/22/20 07:37 Freq: Status: Active Protocol: Document 09/10/22 13:00 [facility] (Rec: 09/10/22 14:23 [facility] [id number]) Hot Pack/Cold Pack Treatment Cold Pack Location LS Patient Position Hooklying Treatment Duration (minutes) 10 PT-OP-T Assessment and Plan Start: 08/22/20 07:37 Freq: Status: Active Protocol: Document 05/29/23 15:15 DCW (Rec: 05/29/23 16:01 [facility] [id number]) Physical Therapy Assessment Goals activity tolerance Impairment Pt requires a nap after max 4 hours of being awake/up on a good day. On a bad day, 2 hours awake prior to nap [employer] Goal (LTG) Pt will be able to be awake for 3-5 hours (depending on good vs bad day) prior to requriing nap LTG Duration 07/10/23 dizziness Mcfp Goal (LTG) Improve convergence test to 5cm in order to dec subjective c/o dizziness LTG Duration 07/10/23 5 Impairment activity tolerance Impairment can only walk 1 block to about 3/4mile a day w/1 seated break (depends on day); or do 2 miles w/throttle use on bike beofre exhausted Short Term Goal (STG) Pt will gait train at least 1650 feet in 6 minutes without AD and no LOB or dragging finger on the wall for steadying assist by 08/31/21. 07/03/21: Pt gait trains 1654 feet in 6 minutes with occ left index finger dragging along wall to assist with balance with anti-clockwise gait. 06/02/21: Pt gait trains 1541 feet in 6 minutes, walking anti-clockwise. Twice, she rubs left hand on corner when turning to the left in the hallway. She has increased arms out and right arm swing and left LE does not move as well motor-viera compared to the right and requires effort to clear foot each time. Pt is wearing short wellingtons and this may cause exaggeration of lifting foot, requiring more effort which shows as such on the left. 03/29/21: Pt gait trains 1531 feet in 6 minutes, which is 3 feet further than when last tested in October 202008/30-1431ft 11/28-1481ft 02/20/22-1523ft touched wall 1x & mild instability throughout 05/07-1530ft w/less notable instability- only 2x slight uneven movement of trunk 07/16-occ touching of wall 1522ft 10/02-1500ft (likely dec some d/ t change in set up so required pt to turn around more often) ; no touching wall 02/20-1493ft with 1 touch to wall. LOB after 4 min STG Duration DC this goal Mcfp Goal (LTG) Pt will report inc tolerance w /activity in order to increase her ability to walk w/max walk being at least 1 mile w/ no more than 1 seated rest break 04/17-always take 1 break but occ needs more LTG Duration 07/10 4 Short Term Goal (STG) Pt will be able to throw the ball for her dog for 10-15 min w/o inc neck pain ggreater than 08/10 04/17- more recently and it makes neck feel stiff which makes her head feel pressured like she isn't getting enough blood to her head. 01/07 if late in the day but 2/10 in earlier in the day STG Duration 05/30 [employer] Goal (LTG) Pt will be able to do all ROM of neck WNL w/o inc pain or feeling of nausea or dizziness 10/02-still limited 02/21-cont limitation w/pt noting nausea w/ext & L rot 04/17-still w/flex and ext LTG Duration 07/10 3 Short Term Goal (STG) Pt will perform progressive HEP with I including postural, flexibility, balance, LE strengthening, breathing, and VOR exercises to decrease symptoms and improve balance by 08/31/21. 07/03/21: Pt is performing band exercises for legs, back advanced developer self-massage, breathing, walking the dog, pelvic realignment exercises and balance exercises in the hallway. She is doing exercises 1-2x/wk. 08/30-pt walking and doing exercises at home plan to update and progress program 11/28-advancing based on cont deficits STG Duration achieved and progressing as able [employer] Goal (LTG) Pt will have at least 4+/5 all LE MMT 02/20-abd, IR still limited but overall much improved 05/17-slowly improved 07/16-no major change 10/02-abd only one not met 02/21-n/t LTG Duration achieved 04/17 2 [employer] Goal (LTG) adjusted goal: to Pt will report ETIENNE no greater than 10/08 10/02-pt reports no recent change w/ETIENNE 02/20-ETIENNE 02/07 recently 04/17-recent ETIENNE after last vestibular appt 01/07; prior to vestib appt 11/07 were also less frequent LTG Duration 07/10/23 1 Impairment balance [employer] Goal (LTG) Pt will be able to do SLS B 5 sec 10/02-achieved L but limited R still 02/20-6 sec R, 2 sec L LTG Duration achieved 6 sec on R, 5 sec L Assessment Summary Assessment Much better response to treatment today, less complaints of nausea with balance and vestibular challenges. Continue to focus on adaptation/habituation exercises. Physical Therapy Plan Frequency and Duration Frequency of Treatment 1x/Week Duration of treatment (weeks) 12 Plan of Care Start Date 04/17/23 Plan of Care End Date 07/10/23 Therapeutic Interventions Therapeutic Interventions Balance Training,Canalithic Repositioning,Coordination Training,Gait Training,Home Exercise Program,Joint Mobilizations,Manual Therapy, Neuromuscular Re-education, Patient/Caregiver Education, Self-Care/Home Management, Sensory Integration,Soft Tissue Mobilization,Taping, Therapeutic Activities, Therapeutic Exercises, Vestibular Rehabilitation Modalities Cold Pack/Ice Massage,Electric Stimulation,Hot Packs, Ultrasound Next Visit Focus/Plan Next Note Type Treatment Note Next Visit Plan work on neck and cranial mobility to dec symptoms, cont vestibular care to dec dizziness symptoms
--- NOTE | 2023-06-03 17:56 | PT.OTN ---
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 Pt had fall and concussion then as passed out. In PMH, pt writes back pain, superficial blood clot right LE, ulcers. Current complaints include: dizziness when active (walking and movements of neck), decreased processing words, headaches managed by medications, trouble opening right side of jaw post-op, neck pain and stiffness. Pt denies falls since surgery. Pt is wearing an ice hat. Pt reports pain right side of head, left jaw and left thigh. ETIENNE pain gets up to 5/10 with medication. Her neck pain is 4 /10. Left leg pain gets up to 7/10. She reports left leg pain as deep and shooting. Pt reports pain with walking on left leg. Pt reports that her left leg feels weak. The Cymbalta helps with nerve pain . Pt reports that her right eye brown does not yet move after surgery and the right side of her head is swollen. Mother states that pt still does not have any appetite. Treatment Goals Patient/Caregiver Goals Decrease pain, increase balance and leg strength. PT-OP-C Subjective Start: 08/22/20 07:37 Freq: Status: Active Protocol: Document 06/03/23 15:20 [facility] (Rec: 06/03/23 17:56 [facility] [id number]) OP-PT Subjective Patient Comments Patient Comments Pt reports her R ankle is sore still from the fall in the [place] and her back and LLE are also sore since then. She does feel like this is affecting her balance. PT-OP-D Balance Start: 08/22/20 07:37 Freq: Status: Active Protocol: Document 02/20/23 16:56 [facility] (Rec: 02/20/23 18:27 [facility] [id number]) Balance Tests Single Limb Standing Single Limb- Right 6 Single Limb- Left 2 PT-OP-E Functional Tests Start: 08/30/21 14:38 Freq: Status: Active Protocol: Document 02/20/23 16:56 [facility] (Rec: 02/20/23 18:27 [facility] [id number]) Functional Tests 6 Minute Walk Test Distance 1493ft Device Used none Comments after 4 min inc LOB PT-OP-G Mobility & Gait Start: 08/22/20 07:37 Freq: Status: Active Protocol: Document 08/23/20 12:13 MB (Rec: 08/23/20 14:14 MB [id number]) OP Gait Assessment Gait Gait Assistance Required: Independent Distance (Feet) 50 Able to Maintain Weight Bearing Status Yes During Gait Assistive Devices Assistive Device None Orthotic/Prosthetic Devices or Brace: No Gait Deviations General Gait Pattern Decreased Stride Length Factors Limiting Gait Function Factors Limiting Gait Function Decreased Strength,Pain,Poor Balance Comments Gait Comments Pt favors the left leg, looks down at the floor, presents with hesitancy with gait PT-OP-H Neuro Start: 08/22/20 07:37 Freq: Status: Active Protocol: Document 08/23/20 12:13 MB (Rec: 08/23/20 14:14 MB [id number]) Sensation Evaluation Comments Summary Comments Pt reports numbness right temporal area and eye brow Coordination Evaluation Upper Extremity Tests Right Finger to Nose Test Normal Performance Pronation/Supination Test Normal Performance Left Finger to Nose Test Normal Performance Pronation/Supination Test Minimal Impairment Comments Coordination Comments Right toe tapping over opposite foot normal x5 reps, rapid and accurate. Slow with left toe tapping over right foot and inaccurate, given for exercise for home: 10 reps every hour when sitting Vital Signs Pulse 1 Pulse at Rest (bpm) 77 Pulse Assessment Method Cuff Blood Pressure Sitting Blood Pressure (90/60-120/80 mmHg) 132/90 H Blood Pressure Source Automatic Cuff,Right Upper Extremity Comments Vital Signs Comments Doctor note for BP written under precautions, pt is in recommended range today PT-OP-J Posture/Palpation/Skin Start: 08/22/20 07:37 Freq: Status: Active Protocol: Document 07/16/22 17:17 [facility] (Rec: 07/16/22 17:17 [facility] [id number]) Posture Evaluation [facility] Postural Classification System Vertebral Compression Test 3 Lumbar Protective Mechanism Left AP 1 Lumbar Protective Mechanism Right AP 2 Lumbar Protective Mechanism Left PA 2 Lumbar Protective Mechanism Right PA 1 PT-OP-K Range of Motion Start: 08/22/20 07:37 Freq: Status: Active Protocol: Document 04/17/23 13:43 [facility] (Rec: 04/17/23 14:44 [facility] [id number]) Cervical Spine Range of Motion Cervical Spine Active Degrees Flexion 50 Extension 35 Rotation Left 59 Rotation Right 69 Lateral Flexion Left 46 Lateral Flexion Right 49 Comments nausea w/flex and ext; pain w/ L rot PT-OP-M Strength Start: 08/22/20 07:37 Freq: Status: Active Protocol: Document 04/17/23 13:43 [facility] (Rec: 04/17/23 14:44 [facility] [id number]) Hip Strength Hip Manual Muscle Testing Left Flexion (L2) 4+ Good+ Extension (S1) 4+ Good+ Abduction 4+ Good+ Adduction 5 Normal External Rotation 5 Normal Internal Rotation 5 Normal Right Flexion (L2) 5 Normal Extension (S1) 5 Normal Abduction 5 Normal Adduction 5 Normal External Rotation 5 Normal Internal Rotation 5 Normal Knee Strength Knee Manual Muscle Testing Left Flexion (S2) 5 Normal Extension (L3) 5 Normal Comments Pt sitting Right Flexion (S2) 5 Normal Extension (L3) 5 Normal Comments Pt sitting Ankle/Foot Strength Ankle and Foot Manual Muscle Testing Left Dorsiflexion (L4) 5 Normal Plantarflexion (S1) 5 Normal Comments 20 heel raises Right Dorsiflexion (L4) 5 Normal Plantarflexion (S1) 5 Normal Comments 20 heel raises PT-OP-O Vestibular Start: 08/22/20 07:37 Freq: Status: Active Protocol: Document 11/20/22 14:00 [facility] (Rec: 11/20/22 14:45 [facility] [id number]) Vestibular Assessment Visual Testing Smooth Pursuits Horizontal WNL Smooth Pursuits Vertical WNL Saccades Horizontal WNL Heave Test Negative Thrust Head Negative Convergence Test 10 cm DVA (Line Degradation) 3 Vestibulo-Ocular Reflex (VOR1) Nausea PT-OP-Q Treatments Start: 08/22/20 07:37 Freq: Status: Active Protocol: Document 06/03/23 15:20 [facility] (Rec: 06/03/23 17:56 [facility] [id number]) Therapeutic Exercises Supine Exercises n glide Supine Exercise Name sciatic Side left Reps/Minutes 15 stretch Supine Exercise Name opp knee to chest Side bilateral Reps/Minutes 1 min core Supine Exercise Name pelvic tilt Reps/Minutes 15 x5 sec Comments cues for PPT Standing Exercises squat Reps/Minutes 2x5 Comments w/balance and ankle assessment Manual Therapy Treatment Soft Tissue Mobilization hip Mobilization Type Rolling,Sustained Pressure Comments L SI region and iliac crest w/ hip ER Joint Mobilizations ankle Comments R distraction calcaneus, med gapping & med glide FM R talus distraction and med to lat glide FM distal tib R AP FM sacrum Comments caudal FM innominate Comments caudal FM; ER FM L PT-OP-R Modalities Start: 08/22/20 07:37 Freq: Status: Active Protocol: Document 09/10/22 13:00 [facility] (Rec: 09/10/22 14:23 [facility] [id number]) Hot Pack/Cold Pack Treatment Cold Pack Location LS Patient Position Hooklying Treatment Duration (minutes) 10 PT-OP-T Assessment and Plan Start: 08/22/20 07:37 Freq: Status: Active Protocol: Document 06/03/23 15:20 [facility] (Rec: 06/03/23 17:56 [facility] [id number]) Physical Therapy Assessment Goals activity tolerance Impairment Pt requires a nap after max 4 hours of being awake/up on a good day. On a bad day, 2 hours awake prior to nap Uniformer Goal (LTG) Pt will be able to be awake for 3-5 hours (depending on good vs bad day) prior to requriing nap LTG Duration 07/10/23 dizziness Fdc Goal (LTG) [email or web address] Improve convergence test to 5cm in order to dec subjective c/o dizziness LTG Duration 07/10/23 5 Impairment activity tolerance Impairment can only walk 1 block to about 3/4mile a day w/1 seated break (depends on day); or do 2 miles w/throttle use on bike beofre exhausted Short Term Goal (STG) Pt will gait train at least 1650 feet in 6 minutes without AD and no LOB or dragging finger on the wall for steadying assist by 08/31/21. 07/03/21: Pt gait trains 1654 feet in 6 minutes with occ left index finger dragging along wall to assist with balance with anti-clockwise gait. 06/02/21: Pt gait trains 1541 feet in 6 minutes, walking anti-clockwise. Twice, she rubs left hand on corner when turning to the left in the hallway. She has increased arms out and right arm swing and left LE does not move as well motor-viera compared to the right and requires effort to clear foot each time. Pt is wearing short wellingtons and this may cause exaggeration of lifting foot, requiring more effort which shows as such on the left. 03/29/21: Pt gait trains 1531 feet in 6 minutes, which is 3 feet further than when last tested in October 202008/30-1431ft 11/28-1481ft 02/20/22-1523ft touched wall 1x & mild instability throughout 05/07-1530ft w/less notable instability- only 2x slight uneven movement of trunk 07/16-occ touching of wall 1522ft 10/02-1500ft (likely dec some d/ t change in set up so required pt to turn around more often) ; no touching wall 02/20-1493ft with 1 touch to wall. LOB after 4 min STG Duration DC this goal Fdc Goal (LTG) Pt will report inc tolerance w /activity in order to increase her ability to walk w/max walk being at least 1 mile w/ no more than 1 seated rest break 04/17-always take 1 break but occ needs more LTG Duration 07/10 4 Short Term Goal (STG) Pt will be able to throw the ball for her dog for 10-15 min w/o inc neck pain ggreater than 08/10 04/17-bee more recently and it makes neck feel stiff which makes her head feel pressured like she isn't getting enough blood to her head. 01/07 if late in the day but 2/10 in earlier in the day STG Duration 05/30 Uniformer Goal (LTG) Pt will be able to do all ROM of neck WNL w/o inc pain or feeling of nausea or dizziness 10/02-still limited 02/21-cont limitation w/pt noting nausea w/ext & L rot 04/17-still w/flex and ext LTG Duration 07/10 3 Short Term Goal (STG) Pt will perform progressive HEP with I including postural, flexibility, balance, LE strengthening, breathing, and VOR exercises to decrease symptoms and improve balance by 08/31/21. 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 She is doing exercises 1-2x/wk. 08/30-pt walking and doing exercises at home plan to update and progress program 11/28-advancing based on cont deficits STG Duration achieved and progressing as able Fdc Goal (LTG) Pt will have at least 4+/5 all LE MMT 02/20-abd, IR still limited but overall much improved 05/17-slowly improved 07/16-no major change 10/02-abd only one not met 02/21-n/t LTG Duration achieved 04/17 2 Uniformer Goal (LTG) adjusted goal: to Pt will report ETIENNE no greater than 10/08 10/02-pt reports no recent change w/ETIENNE 02/20-ETIENNE 02/07 recently 04/17-recent ETIENNE after last vestibular appt 01/07; prior to vestib appt 11/07 were also less frequent LTG Duration 07/10/23 1 Impairment balance Fdc Goal (LTG) Pt will be able to do SLS B 5 sec 10/02-achieved L but limited R still 02/20-6 sec R, 2 sec L LTG Duration achieved 6 sec on R, 5 sec L Assessment Summary Assessment Pt was having difficulty with balance w/just standing today and w/trials of squatting for ankle assessment and 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 After manual, pt felt more stability and was able to stand and squat w/o LOB. Physical Therapy Plan Frequency and Duration Frequency of Treatment 1x/Week Duration of treatment (weeks) 12 Plan of Care Start Date 04/17/23 Plan of Care End Date 07/10/23 Next Visit Focus/Plan Next Note Type Treatment Note Next Visit Plan work on neck and cranial mobility to dec symptoms, work on body alignment in order to improve stability, cont vestibular care to dec dizziness symptoms
--- NOTE | 2023-06-11 15:16 | PT.OTN ---
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) Headache, unspecified (06/11/23) Weakness (06/11/23) Physical Therapy Treatment Note PT-OP-A Visit Information Start: 08/22/20 07:37 Freq: Status: Active Protocol: Document 06/11/23 14:35 DCW (Rec: 06/11/23 15:16 DCW [id number]) Out-Patient Physical Therapy Visit Information Visit Information Visit Type Treatment Note Visit Start Time 14:35 Visit Stop Time 15:15 Total Visit Minutes 40 Visit Number 26 Number of PRACTICAL NURSE Visits 0 PT-OP-B Current Condition Start: 08/22/20 07:37 Freq: Status: Active Protocol: Document 08/23/20 12:13 MB (Rec: 08/23/20 13:04 MB [id number]) Current Condition History of Current Condition Onset Date Surgery 07/27/20 Current Complaints Dizziness, light-headedness, ETIENNE and left leg pain and imbalance History of Current Condition 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 Pt had fall and concussion then as passed out. In PMH, pt writes back pain, superficial blood clot right LE, ulcers. Current complaints include: dizziness when active (walking and movements of neck), decreased processing words, headaches managed by medications, trouble opening right side of jaw post-op, neck pain and stiffness. Pt denies falls since surgery. Pt is wearing an ice hat. Pt reports pain right side of head, left jaw and left thigh. ETIENNE pain gets up to 5/10 with medication. Her neck pain is 4 /10. Left leg pain gets up to 7/10. She reports left leg pain as deep and shooting. Pt reports pain with walking on left leg. Pt reports that her left leg feels weak. The Cymbalta helps with nerve pain . Pt reports that her right eye brown does not yet move after surgery and the right side of her head is swollen. Mother states that pt still does not have any appetite. Treatment Goals Patient/Caregiver Goals Decrease pain, increase balance and leg strength. PT-OP-C Subjective Start: 08/22/20 07:37 Freq: Status: Active Protocol: Document 06/11/23 14:35 DCW (Rec: 06/11/23 15:16 DCW [id number]) OP-PT Subjective Patient Comments Patient Comments Admits dizziness has really revved up recently. PT-OP-D Balance Start: 08/22/20 07:37 Freq: Status: Active Protocol: Document 02/20/23 16:56 [facility] (Rec: 02/20/23 18:27 [facility] [id number]) Balance Tests Single Limb Standing Single Limb- Right 6 Single Limb- Left 2 PT-OP-E Functional Tests Start: 08/30/21 14:38 Freq: Status: Active Protocol: Document 02/20/23 16:56 [facility] (Rec: 02/20/23 18:27 [facility] [id number]) Functional Tests 6 Minute Walk Test Distance 1493ft Device Used none Comments after 4 min inc LOB PT-OP-G Mobility & Gait Start: 08/22/20 07:37 Freq: Status: Active Protocol: Document 08/23/20 12:13 MB (Rec: 08/23/20 14:14 MB [id number]) OP Gait Assessment Gait Gait Assistance Required: Independent Distance (Feet) 50 Able to Maintain Weight Bearing Status Yes During Gait Assistive Devices Assistive Device None Orthotic/Prosthetic Devices or Brace: No Gait Deviations General Gait Pattern Decreased Stride Length Factors Limiting Gait Function Factors Limiting Gait Function Decreased Strength,Pain,Poor Balance Comments Gait Comments Pt favors the left leg, looks down at the floor, presents with hesitancy with gait PT-OP-H Neuro Start: 08/22/20 07:37 Freq: Status: Active Protocol: Document 08/23/20 12:13 MB (Rec: 08/23/20 14:14 MB [id number]) Sensation Evaluation Comments Summary Comments Pt reports numbness right temporal area and eye brow Coordination Evaluation Upper Extremity Tests Right Finger to Nose Test Normal Performance Pronation/Supination Test Normal Performance Left Finger to Nose Test Normal Performance Pronation/Supination Test Minimal Impairment Comments Coordination Comments Right toe tapping over opposite foot normal x5 reps, rapid and accurate. Slow with left toe tapping over right foot and inaccurate, given for exercise for home: 10 reps every hour when sitting Vital Signs Pulse 1 Pulse at Rest (bpm) 77 Pulse Assessment Method Cuff Blood Pressure Sitting Blood Pressure (90/60-120/80 mmHg) 132/90 H Blood Pressure Source Automatic Cuff,Right Upper Extremity Comments Vital Signs Comments Doctor note for BP written under precautions, pt is in recommended range today PT-OP-J Posture/Palpation/Skin Start: 08/22/20 07:37 Freq: Status: Active Protocol: Document 07/16/22 17:17 [facility] (Rec: 07/16/22 17:17 [facility] [id number]) Posture Evaluation [facility] Postural Classification System Vertebral Compression Test 3 Lumbar Protective Mechanism Left AP 1 Lumbar Protective Mechanism Right AP 2 Lumbar Protective Mechanism Left PA 2 Lumbar Protective Mechanism Right PA 1 PT-OP-K Range of Motion Start: 08/22/20 07:37 Freq: Status: Active Protocol: Document 04/17/23 13:43 [facility] (Rec: 04/17/23 14:44 [facility] [id number]) Cervical Spine Range of Motion Cervical Spine Active Degrees Flexion 50 Extension 35 Rotation Left 59 Rotation Right 69 Lateral Flexion Left 46 Lateral Flexion Right 49 Comments nausea w/flex and ext; pain w/ L rot PT-OP-M Strength Start: 08/22/20 07:37 Freq: Status: Active Protocol: Document 04/17/23 13:43 [facility] (Rec: 04/17/23 14:44 [facility] [id number]) Hip Strength Hip Manual Muscle Testing Left Flexion (L2) 4+ Good+ Extension (S1) 4+ Good+ Abduction 4+ Good+ Adduction 5 Normal External Rotation 5 Normal Internal Rotation 5 Normal Right Flexion (L2) 5 Normal Extension (S1) 5 Normal Abduction 5 Normal Adduction 5 Normal External Rotation 5 Normal Internal Rotation 5 Normal Knee Strength Knee Manual Muscle Testing Left Flexion (S2) 5 Normal Extension (L3) 5 Normal Comments Pt sitting Right Flexion (S2) 5 Normal Extension (L3) 5 Normal Comments Pt sitting Ankle/Foot Strength Ankle and Foot Manual Muscle Testing Left Dorsiflexion (L4) 5 Normal Plantarflexion (S1) 5 Normal Comments 20 heel raises Right Dorsiflexion (L4) 5 Normal Plantarflexion (S1) 5 Normal Comments 20 heel raises PT-OP-O Vestibular Start: 08/22/20 07:37 Freq: Status: Active Protocol: Document 11/20/22 14:00 DCW (Rec: 11/20/22 14:45 DCW [id number]) Vestibular Assessment Visual Testing Smooth Pursuits Horizontal WNL Smooth Pursuits Vertical WNL Saccades Horizontal WNL Heave Test Negative Thrust Head Negative Convergence Test 10 cm DVA (Line Degradation) 3 Vestibulo-Ocular Reflex (VOR1) Nausea PT-OP-Q Treatments Start: 08/22/20 07:37 Freq: Status: Active Protocol: Document 06/11/23 14:35 DCW (Rec: 06/11/23 15:16 DCW [id number]) Manual Therapy Treatment Soft Tissue Mobilization cervical Body Location B UT & scalenes Mobilization Type Rolling,Strumming,Sustained Pressure Comments sup w/rot & s/l w/L scap dep Other Other Manual Treatments Resisted cervical rotation to left PT-OP-R Modalities Start: 08/22/20 07:37 Freq: Status: Active Protocol: Document 09/10/22 13:00 [facility] (Rec: 09/10/22 14:23 [facility] [id number]) Hot Pack/Cold Pack Treatment Cold Pack Location LS Patient Position Hooklying Treatment Duration (minutes) 10 PT-OP-T Assessment and Plan Start: 08/22/20 07:37 Freq: Status: Active Protocol: Document 06/11/23 14:35 DCW (Rec: 06/11/23 15:16 DCW [id number]) Physical Therapy Assessment Goals activity tolerance Impairment Pt requires a nap after max 4 hours of being awake/up on a good day. On a bad day, 2 hours awake prior to nap Insulation Worker Interior Surface Goal (LTG) Pt will be able to be awake for 3-5 hours (depending on good vs bad day) prior to requriing nap LTG Duration 07/10/23 dizziness Insulation Worker Interior Surface Goal (LTG) [email or web address] Improve convergence test to 5cm in order to dec subjective c/o dizziness LTG Duration 07/10/23 5 Impairment activity tolerance Impairment can only walk 1 block to about 3/4mile a day w/1 seated break (depends on day); or do 2 miles w/throttle use on bike beofre exhausted Short Term Goal (STG) Pt will gait train at least 1650 feet in 6 minutes without AD and no LOB or dragging finger on the wall for steadying assist by 08/31/21. 07/03/21: Pt gait trains 1654 feet in 6 minutes with occ left index finger dragging along wall to assist with balance with anti-clockwise gait. 06/02/21: Pt gait trains 1541 feet in 6 minutes, walking anti-clockwise. Twice, she rubs left hand on corner when turning to the left in the hallway. She has increased arms out and right arm swing and left LE does not move as well motor-viera compared to the right and requires effort to clear foot each time. Pt is wearing short wellingtons and this may cause exaggeration of lifting foot, requiring more effort which shows as such on the left. 03/29/21: Pt gait trains 1531 feet in 6 minutes, which is 3 feet further than when last tested in October 202008/30-14311/28-148ft 02/20/22-1523 touched wall 1x & mild instability throughout 05/07-1530ft w/less notable instability- only 2x slight uneven movement of trunk 07/16-occ touching of wall 1522ft 10/02-1500ft (likely dec some d/ t change in set up so required pt to turn around more often) ; no touching wall 02/20- with 1 touch to wall. LOB after 4 min STG Duration DC this goal Insulation Worker Interior Surface Goal (LTG) Pt will report inc tolerance w /activity in order to increase her ability to walk w/max walk being at least 1 mile w/ no more than 1 seated rest break 04/17-always take 1 break but occ needs more LTG Duration 07/10 4 Short Term Goal (STG) Pt will be able to throw the ball for her dog for 10-15 min w/o inc neck pain ggreater than 08/10 04/17-bee more recently and it makes neck feel stiff which makes her head feel pressured like she isn't getting enough blood to her head. 01/07 if late in the day but 10 in earlier in the day STG Duration 05/30 Prison Goal (LTG) Pt will be able to do all ROM of neck WNL w/o inc pain or feeling of nausea or dizziness 10/02-still limited 02/21-cont limitation w/pt noting nausea w/ext & L rot 04/17-still w/flex and ext LTG Duration 07/10 3 Short Term Goal (STG) Pt will perform progressive HEP with I including postural, flexibility, balance, LE strengthening, breathing, and VOR exercises to decrease symptoms and improve balance by 08/31/21. 07/03/21: Pt is performing band exercises for legs, back labels molder self-massage, breathing, walking the dog, pelvic realignment exercises and balance exercises in the hallway. She is doing exercises 1-2x/wk. 08/30-pt walking and doing exercises at home plan to update and progress program 11/28-advancing based on cont deficits STG Duration achieved and progressing as able Insulation Worker Interior Surface Goal (LTG) Pt will have at least 4+/5 all LE MMT 02/20-abd, IR still limited but overall much improved 05/17-slowly improved 07/16-no major change 10/02-abd only one not met 02/21-n/t LTG Duration achieved 04/17 2 Prison Goal (LTG) adjusted goal: to Pt will report ETIENNE no greater than 10/08 10/02-pt reports no recent change w/ETIENNE 02/20-ETIENNE 02/07 recently 04/17-recent ETIENNE after last vestibular appt 01/07; prior to vestib appt 11/07 were also less frequent LTG Duration 07/10/23 1 Impairment balance Insulation Worker Interior Surface Goal (LTG) Pt will be able to do SLS B 5 sec 10/02-achieved L but limited R still 02/20-6 sec R, 2 sec L LTG Duration achieved 6 sec on R, 5 sec L Assessment Summary Assessment Pt complaining of increased neck pain seemingly related to increased dizziness. Spent time today focusing on improving cervical mobility and decreasing tone. Pt noted improvement by end of session. Physical Therapy Plan Frequency and Duration Frequency of Treatment 1x/Week Duration of treatment (weeks) 12 Plan of Care Start Date 04/17/23 Plan of Care End Date 07/10/23 Therapeutic Interventions Therapeutic Interventions Balance Training,Canalithic Repositioning,Coordination Training,Gait Training,Home Exercise Program,Joint Mobilizations,Manual Therapy, Neuromuscular Re-education, Patient/Caregiver Education, Self-Care/Home Management, Sensory Integration,Soft Tissue Mobilization,Taping, Therapeutic Activities, Therapeutic Exercises, Vestibular Rehabilitation Modalities Cold Pack/Ice Massage,Electric Stimulation,Hot Packs, Ultrasound Next Visit Focus/Plan Next Note Type Treatment Note Next Visit Plan work on neck and cranial mobility to dec symptoms, cont vestibular care to dec dizziness symptoms
--- NOTE | 2023-08-13 17:50 | PT.OPDS ---
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) Headache, unspecified (06/11/23) Weakness (06/11/23) Visit Care Team Role Provider Type Christen Figueroa PA-C Attending Provider Non-Staff Primary Care Provider Referring Provider Specialty: Family Practice Address: [address] [place] [address], [address], [place], [address] Email: Visit Number Visit Number 26 Discharge Summary PT-OP-B Current Condition Start: 08/22/20 07:37 Freq: Status: Active Protocol: Document 08/23/20 12:13 MB (Rec: 08/23/20 13:04 MB [id number]) Current Condition History of Current Condition Onset Date Surgery 07/27/20 Current Complaints Dizziness, light-headedness, ETIENNE and left leg pain and imbalance History of Current Condition 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 Pt had fall and concussion then as passed out. In PMH, pt writes back pain, superficial blood clot right LE, ulcers. Current complaints include: dizziness when active (walking and movements of neck), decreased processing words, headaches managed by medications, trouble opening right side of jaw post-op, neck pain and stiffness. Pt denies falls since surgery. Pt is wearing an ice hat. Pt reports pain right side of head, left jaw and left thigh. ETIENNE pain gets up to 5/10 with medication. Her neck pain is 4 /10. Left leg pain gets up to 7/10. She reports left leg pain as deep and shooting. Pt reports pain with walking on left leg. Pt reports that her left leg feels weak. The Cymbalta helps with nerve pain . Pt reports that her right eye brown does not yet move after surgery and the right side of her head is swollen. Mother states that pt still does not have any appetite. Treatment Goals Patient/Caregiver Goals Decrease pain, increase balance and leg strength. PT-OP-C Subjective Start: 08/22/20 07:37 Freq: Status: Active Protocol: Document 06/11/23 14:35 DCW (Rec: 06/11/23 15:16 DCW [id number]) OP-PT Subjective Patient Comments Patient Comments Admits dizziness has really revved up recently. PT-OP-D Balance Start: 08/22/20 07:37 Freq: Status: Active Protocol: Document 02/20/23 16:56 [facility] (Rec: 02/20/23 18:27 [facility] [id number]) Balance Tests Single Limb Standing Single Limb- Right 6 Single Limb- Left 2 PT-OP-E Functional Tests Start: 08/30/21 14:38 Freq: Status: Active Protocol: Document 02/20/23 16:56 [facility] (Rec: 02/20/23 18:27 [facility] [id number]) Functional Tests 6 Minute Walk Test Distance 1493ft Device Used none Comments after 4 min inc LOB PT-OP-G Mobility & Gait Start: 08/22/20 07:37 Freq: Status: Active Protocol: Document 08/23/20 12:13 MB (Rec: 08/23/20 14:14 MB [id number]) OP Gait Assessment Gait Gait Assistance Required: Independent Distance (Feet) 50 Able to Maintain Weight Bearing Status Yes During Gait Assistive Devices Assistive Device None Orthotic/Prosthetic Devices or Brace: No Gait Deviations General Gait Pattern Decreased Stride Length Factors Limiting Gait Function Factors Limiting Gait Function Decreased Strength,Pain,Poor Balance Comments Gait Comments Pt favors the left leg, looks down at the floor, presents with hesitancy with gait PT-OP-H Neuro Start: 08/22/20 07:37 Freq: Status: Active Protocol: Document 08/23/20 12:13 MB (Rec: 08/23/20 14:14 MB [id number]) Sensation Evaluation Comments Summary Comments Pt reports numbness right temporal area and eye brow Coordination Evaluation Upper Extremity Tests Right Finger to Nose Test Normal Performance Pronation/Supination Test Normal Performance Left Finger to Nose Test Normal Performance Pronation/Supination Test Minimal Impairment Comments Coordination Comments Right toe tapping over opposite foot normal x5 reps, rapid and accurate. Slow with left toe tapping over right foot and inaccurate, given for exercise for home: 10 reps every hour when sitting Vital Signs Pulse 1 Pulse at Rest (bpm) 77 Pulse Assessment Method Cuff Blood Pressure Sitting Blood Pressure (90/60-120/80 mmHg) 132/90 H Blood Pressure Source Automatic Cuff,Right Upper Extremity Comments Vital Signs Comments Doctor note for BP written under precautions, pt is in recommended range today PT-OP-J Posture/Palpation/Skin Start: 08/22/20 07:37 Freq: Status: Active Protocol: Document 07/16/22 17:17 [facility] (Rec: 07/16/22 17:17 [facility] [id number]) Posture Evaluation [facility] Postural Classification System Vertebral Compression Test 3 Lumbar Protective Mechanism Left AP 1 Lumbar Protective Mechanism Right AP 2 Lumbar Protective Mechanism Left PA 2 Lumbar Protective Mechanism Right PA 1 PT-OP-K Range of Motion Start: 08/22/20 07:37 Freq: Status: Active Protocol: Document 04/17/23 13:43 [facility] (Rec: 04/17/23 14:44 [facility] [id number]) Cervical Spine Range of Motion Cervical Spine Active Degrees Flexion 50 Extension 35 Rotation Left 59 Rotation Right 69 Lateral Flexion Left 46 Lateral Flexion Right 49 Comments nausea w/flex and ext; pain w/ L rot PT-OP-M Strength Start: 08/22/20 07:37 Freq: Status: Active Protocol: Document 04/17/23 13:43 [facility] (Rec: 04/17/23 14:44 [facility] [id number]) Hip Strength Hip Manual Muscle Testing Left Flexion (L2) 4+ Good+ Extension (S1) 4+ Good+ Abduction 4+ Good+ Adduction 5 Normal External Rotation 5 Normal Internal Rotation 5 Normal Right Flexion (L2) 5 Normal Extension (S1) 5 Normal Abduction 5 Normal Adduction 5 Normal External Rotation 5 Normal Internal Rotation 5 Normal Knee Strength Knee Manual Muscle Testing Left Flexion (S2) 5 Normal Extension (L3) 5 Normal Comments Pt sitting Right Flexion (S2) 5 Normal Extension (L3) 5 Normal Comments Pt sitting Ankle/Foot Strength Ankle and Foot Manual Muscle Testing Left Dorsiflexion (L4) 5 Normal Plantarflexion (S1) 5 Normal Comments 20 heel raises Right Dorsiflexion (L4) 5 Normal Plantarflexion (S1) 5 Normal Comments 20 heel raises PT-OP-O Vestibular Start: 08/22/20 07:37 Freq: Status: Active Protocol: Document 11/20/22 14:00 [facility] (Rec: 11/20/22 14:45 [facility] [id number]) Vestibular Assessment Visual Testing Smooth Pursuits Horizontal WNL Smooth Pursuits Vertical WNL Saccades Horizontal WNL Heave Test Negative Thrust Head Negative Convergence Test 10 cm DVA (Line Degradation) 3 Vestibulo-Ocular Reflex (VOR1) Nausea PT-OP-T Assessment and Plan Start: 08/22/20 07:37 Freq: Status: Active Protocol: Document 08/13/23 17:48 [facility] (Rec: 08/13/23 17:50 [facility] [id number]) Physical Therapy Assessment Goals activity tolerance Impairment Pt requires a nap after max 4 hours of being awake/up on a good day. On a bad day, 2 hours awake prior to nap Talent Acquisition Manager Goal (LTG) Pt will be able to be awake for 3-5 hours (depending on good vs bad day) prior to requriing nap LTG Duration 07/10/23 dizziness Half-Way Goal (LTG) Improve convergence test to 5cm in order to dec subjective c/o dizziness LTG Duration 07/10/23 5 Impairment activity tolerance Impairment can only walk 1 block to about 3/4mile a day w/1 seated break (depends on day); or do 2 miles w/throttle use on bike beofre exhausted Short Term Goal (STG) Pt will gait train at least 1650 feet in 6 minutes without AD and no LOB or dragging finger on the wall for steadying assist by 08/31/21. 07/03/21: Pt gait trains 1654 feet in 6 minutes with occ left index finger dragging along wall to assist with balance with anti-clockwise gait. 06/02/21: Pt gait trains 1541 feet in 6 minutes, walking anti-clockwise. Twice, she rubs left hand on corner when turning to the left in the hallway. She has increased arms out and right arm swing and left LE does not move as well motor-viera compared to the right and requires effort to clear foot each time. Pt is wearing short wellingtons and this may cause exaggeration of lifting foot, requiring more effort which shows as such on the left. 03/29/21: Pt gait trains 1531 feet in 6 minutes, which is 3 feet further than when last tested in October 202008/30-1431ft 11/28-1481ft 02/20/22-1523ft touched wall 1x & mild instability throughout 05/07-1530ft w/less notable instability- only 2x slight uneven movement of trunk 07/16-occ touching of wall 1522ft 10/02-1500ft (likely dec some d/ t change in set up so required pt to turn around more often) ; no touching wall 02/20-1493ft with 1 touch to wall. LOB after 4 min STG Duration DC this goal Talent Acquisition Manager Goal (LTG) Pt will report inc tolerance w /activity in order to increase her ability to walk w/max walk being at least 1 mile w/ no more than 1 seated rest break 04/17-always take 1 break but occ needs more LTG Duration 07/10 4 Short Term Goal (STG) Pt will be able to throw the ball for her dog for 10-15 min w/o inc neck pain ggreater than 08/10 04/17-frisbee more recently and it makes neck feel stiff which makes her head feel pressured like she isn't getting enough blood to her head. 01/07 if late in the day but 08/10 in earlier in the day STG Duration 05/30 Talent Acquisition Manager Goal (LTG) Pt will be able to do all ROM of neck WNL w/o inc pain or feeling of nausea or dizziness 10/02-still limited 02/21-cont limitation w/pt noting nausea w/ext & L rot 04/17-still w/flex and ext LTG Duration 07/10 3 Short Term Goal (STG) Pt will perform progressive HEP with I including postural, flexibility, balance, LE strengthening, breathing, and VOR exercises to decrease symptoms and improve balance by 08/31/21. 07/03/21: Pt is performing band exercises for legs, back contact person self-massage, breathing, walking the dog, pelvic realignment exercises and balance exercises in the hallway. She is doing exercises 1-2x/wk. 08/30-pt walking and doing exercises at home plan to update and progress program 11/28-advancing based on cont deficits STG Duration achieved and progressing as able Talent Acquisition Manager Goal (LTG) Pt will have at least 4+/5 all LE MMT 02/20-abd, IR still limited but overall much improved 05/17-slowly improved 07/16-no major change 10/02-abd only one not met 02/21-n/t LTG Duration achieved 04/17 2 Half-Way Goal (LTG) adjusted goal: to Pt will report ETIENNE no greater than 10/08 10/02-pt reports no recent change w/ETIENNE 02/20-ETIENNE 02/07 recently 04/17-recent ETIENNE after last vestibular appt 01/07; prior to vestib appt 11/07 were also less frequent LTG Duration 07/10/23 1 Impairment balance Half-Way Goal (LTG) Pt will be able to do SLS B 5 sec 10/02-achieved L but limited R still 02/20-6 sec R, 2 sec L LTG Duration achieved 6 sec on R, 5 sec L Assessment Summary Assessment Pt no longer attending PT and has not been seen for 2 months . She did not schedule further appts at last visit. She made significant progress w/ balance, neck pain, mobility since eval. DC d/t no longer attending PT Physical Therapy Plan Discharge Physical Therapy Discharge Reasons No Longer Attending PT
== END 2023-08-21 10:03 | disposition home or self-care (01) ==
LOC: PHYS 14:30
PROVIDERS: PCP Physician Assistant; Referring Provider Physician Assistant; Visit Provider Physician Assistant
DX: I67.5 Moyamoya disease (principal); R51.9 Headache, unspecified; R53.1 Weakness
CPT/HCPCS: 95851; 97110; 97112; 97116; 97140; 97162; 97530; 97535; 97750